=== PATIENT | female | born 1950 | race Caucasian/White ===

== ENCOUNTER 2019-05-04 18:42 | Outpatient (CLI) | payer MEDICARE | END 2019-05-04 18:43 | disposition short-term general hospital (02) | LOC: EMS 18:42 | PROVIDERS: ATTEND Surgery | DX: R06.02 Shortness of breath (principal); R07.9 Chest pain, unspecified | CPT/HCPCS: A0425; A0433 ==

== ENCOUNTER 2019-06-22 11:19 | Observation (INO) | payer MEDICARE ==
--- NOTE | 2019-06-22 11:33 | ED Physician Documentation ---
PD HPI DYSPNEA - Stated complaint Stated Complaint: SOA - History obtained from History obtained from: Patient - History of Present Illness Timing - onset: Last night (worsened last night), How many days ago (initially 4 days ago onset) Timing - onset during: Rest, Light activity Timing - duration: Days (4) Timing - details: Abrupt onset (Had noticed some orthopnea and some exertional dyspnea. However she was still taking walks outside and just thought she might be out of shape. She noticed considerable worsening dyspnea last night into today. She does have history of COPD as well as heart disease with stents placed but a year and a half ago but has been doing well. She does take a daily diuretic. She does not use any regular inhalers. She does not have oxygen at home.), Still present Inciting event(s): Exercise. No: Out of meds, URI, Immobilization/travel Worsened by: Laying flat Associated symptoms: Fever, Wheezing, Bilateral edema. No: Cough, Hemoptysis, Chest pain / discomfort, Palpitations Similar symptoms before: Diagnosis (had similar symptoms with WA recently (several months ago)) Recently seen: Admitted (for acute WA with [address] Angel in [facility]. Has done okay since that.) Review of Systems Constitutional: denies: Fever, Chills, Myalgias Nose: denies: Rhinorrhea / runny nose, Congestion Throat: denies: Sore throat Cardiac: reports: Pedal edema. denies: Chest pain / pressure, Calf pain Respiratory: reports: Dyspnea, Wheezing. denies: Cough GI: denies: Abdominal Pain, Nausea, Vomiting, Diarrhea, Bloody / black stool : denies: Dysuria Skin: denies: Rash PD PAST MEDICAL HISTORY - Past Medical History Cardiovascular: Congestive heart failure, [place] (with stents in 2018) Respiratory: COPD Neuro: None Endocrine/Autoimmune: None - Present Medications Home Medications: Ambulatory Orders Medication Instructions Recorded Confirmed Aspirin [Aspirin EC] 81 mg PO DAILY 06/22/19 06/22/19 Atorvastatin Calcium 40 mg PO QPM 06/22/19 06/22/19 Clopidogrel Bisulfate [Clopidogrel] 75 mg PO DAILY 06/22/19 06/22/19 Furosemide 20 mg PO DAILY 06/22/19 06/22/19 Metoprolol Succinate [Toprol Xl] 50 mg PO DAILY 06/22/19 06/22/19 Nitroglycerin 0.4 mg SL Q5M PRN 06/22/19 06/22/19 Spironolactone 25 mg PO DAILY 06/22/19 06/22/19 lisinopriL [Lisinopril] 10 mg PO DAILY 06/22/19 06/22/19 - Allergies Allergies/Adverse Reactions: Allergies Allergy/AdvReac Type Severity Reaction Status Date / Time No Known Drug Allergies Allergy Verified 06/22/19 14:39 PD ED PE NORMAL - Vitals Vital signs reviewed: Yes - General General: Alert and oriented X 3, Well developed/nourished, Other (tachypneic and low sats; somewhat hypertensive. Sitting upright. ) - HEENT HEENT: PERRL, Moist mucous membranes, Pharynx benign - Neck Neck: Supple, no meningeal sign, No adenopathy, No bruit, Other (JVD noted at 45 degrees) - Cardiac Cardiac: RRR, No murmur, No rub - Respiratory Respiratory: No: Clear bilaterally (some diffuse exp wheezing, and also fine crackles heard 1/[address] up both sides. ) - Abdomen Abdomen: Soft, Non tender - Derm Derm: Normal color, Warm and dry - Extremities Extremities: No tenderness to palpate, No calf tenderness / cord, Other (modest pedal edema both sides) - Neuro Neuro: Alert and oriented X 3, No motor deficit, Normal speech Eye Opening: Spontaneous Motor: Obeys Commands Verbal: Oriented GCS Score: 15 Results - Vitals Vitals: Vital Signs - 24 hr 06/22/19 06/22/19 06/22/19 11:25 11:45 12:10 Temperature 36.7 C Heart Rate 73 60 80 Respiratory 37 H 26 H 20 Rate Blood Pressure 177/85 H 179/82 H O2 Saturation 88 L 89 L 06/22/19 06/22/19 12:21 13:00 Temperature Heart Rate 56 L 53 L Respiratory 19 14 Rate Blood Pressure 114/93 H 105/55 L O2 Saturation 92 90 L Oxygen O2 Source Nasal cannula - EKG (time done) 11:32 Rate: Rate (enter#) (68) Rhythm: NSR, Other (baseline artifact) Blanco: Normal Intervals: Normal AL QRS: Normal Ischemia: Normal ST segments. No: ST elevation c/w ischemia, ST depression - Labs Labs: Laboratory Tests 06/22/19 06/22/19 06/22/19 11:42 11:42 11:42 WBC 11.6 H RBC 4.95 Hgb 14.0 Hct 43.6 MCV 88.1 MCH 28.3 MCHC 32.1 RDW 14.0 Plt Count 475 H MPV 10.6 Neut # (Auto) 8.6 H Lymph # (Auto) 2.0 Elmore # (Auto) 0.7 Eos # (Auto) 0.2 Baso # (Auto) 0.1 Absolute Nucleated RBC 0.00 Nucleated RBC % 0.0 Sodium 138 Potassium 3.6 Chloride 102 Carbon Dioxide 23 Anion Gap 13.0 BUN 10 Creatinine 0.9 Estimated GFR (MDRD) 62 L Glucose 141 H Calcium 8.9 Magnesium 1.7 Total Bilirubin 0.9 AST 25 ALT 22 Alkaline Phosphatase 89 Troponin I High Sens 24.8 H* B-Natriuretic Peptide Total Protein 7.8 Albumin 3.2 Globulin 4.6 H Albumin/Globulin Ratio 0.7 L Lipase 18 L 06/22/19 11:42 WBC RBC Hgb Hct MCV MCH MCHC RDW Plt Count MPV Neut # (Auto) Lymph # (Auto) Elmore # (Auto) Eos # (Auto) Baso # (Auto) Absolute Nucleated RBC Nucleated RBC % Sodium Potassium Chloride Carbon Dioxide Anion Gap BUN Creatinine Estimated GFR (MDRD) Glucose Calcium Magnesium Total Bilirubin AST ALT Alkaline Phosphatase Troponin I High Sens B-Natriuretic Peptide 3254 H Total Protein Albumin Globulin Albumin/Globulin Ratio Lipase - Rads (name of study) chest xray Radiology: Prelim report reviewed (Port a Cath noted. Pulmonary vascular congestion.), See rad report PD MEDICAL DECISION MAKING - ED course Complexity details: re-evaluated patient (Her breathing is much more relaxed and comfortable. However she is still only 91% on 3 L nasal cannula. She is able to talk in sentences. She is sitting up comfortably. She still has some fine crackles sounds. No wheezing at this point.), considered differential (consider COPD and /or CHF. Does not have URI symptoms per se. ), d/w patient Departure - Departure Disposition: ED Place in Observation Clinical Impression: COPD exacerbation Dyspnea Qualifiers: Dyspnea type: shortness of breath Qualified Code(s): R06.02 - Shortness of breath CHF (congestive heart failure) Qualifiers: Heart failure type: unspecified Heart failure chronicity: acute on chronic Qualified Code(s): I50.9 - Heart failure, unspecified Condition: Stable Record reviewed to determine appropriate education?: Yes Discharge Date/Time: 06/22/19 14:00
[2019-06-22] MEDS ORDERED: IPRATROPIUM/ALBUTEROL 3 ML NEB INH STA (11:45)
[2019-06-22 11:56] LABS: BASOPHILS # (AUTO) 0.1 10^3/uL (0.0-0.1); BASOPHILS % (AUTO) 0.8 %; EOSINOPHILS # (AUTO) 0.2 10^3/uL (0.0-0.7); EOSINOPHILS % (AUTO) 1.6 %; LYMPHOCYTES % (AUTO) 17.1 %; MEAN CORPUSCULAR HEMOGLOBIN 28.3 pg (27.0-31.0); MEAN CORPUSCULAR HGB CONC 32.1 g/dL (32.0-36.0); MEAN CORPUSCULAR VOLUME 88.1 fL (81.0-99.0); MEAN PLATELET VOLUME 10.6 fL (7.9-10.8); MONOCYTES # (AUTO) 0.7 10^3/uL (0.0-1.0); MONOCYTES % (AUTO) 5.9 %; NEUTROPHILS # (AUTO) 8.6 10^3/uL (1.5-6.6); NEUTROPHILS % (AUTO) 74.1 %; PLT - PLATELET COUNT 475 10^3/uL (130-450); RED BLOOD COUNT 4.95 10^6/uL (4.20-5.40); WHITE BLOOD COUNT 11.6 x10^3/uL (4.8-10.8)
--- NOTE | 2019-06-22 12:25 | XRAY Report ---
Reason: Chest Pain Procedure Date: 06/22/2019 Accession Number: [id number] / [id number] Procedure: XR - Chest 1 View X-Ray CPT Code: 86529 Final Report FULL RESULT: EXAM: CHEST RADIOGRAPHY EXAM DATE: 06/22/2019 12:06 PM. CLINICAL HISTORY: Chest Pain. COMPARISON: None. TECHNIQUE: 1 view. FINDINGS: Lungs/Pleura: Left basal infiltrate or atelectasis with small to moderate left pleural effusion. Pulmonary vascularity is increased with cephalization of vessels. Small right pleural effusion. Mediastinum: Within exam limitations, the cardiomediastinal contour is normal. Other: None. IMPRESSION: 1. Right-sided Port-A-Cath tip in the cavoatrial junction. 2. Pulmonary venous congestion RADIA
[2019-06-22 12:26] LABS: ALBUMIN 3.2 g/dL (3.2-5.5); ALBUMIN/GLOBULIN RATIO 0.7 (1.0-2.2); BILIRUBIN,TOTAL 0.9 mg/dL (0.2-1.0); CREATININE 0.9 mg/dL (0.4-1.0); MAGNESIUM 1.7 mg/dL (1.7-2.8); TOTAL PROTEIN 7.8 g/dL (6.7-8.2)
[2019-06-22 12:55] LABS: CALCIUM 8.9 mg/dL (8.5-10.3)
[2019-06-22] MEDS ORDERED: FUROSEMIDE 40 MG/4 ML VIAL IVP STA (12:55)
[2019-06-22] MEDS ORDERED: ZOLPIDEM 5 MG TABLET PO PRN (13:27)
[2019-06-22] MEDS ORDERED: ACETAMINOPHEN 325 MG TABLET PO PRN (13:27)
[2019-06-22] MEDS ORDERED: ONDANSETRON 4 MG/2 ML VIAL IVP PRN (13:27)
--- NOTE | 2019-06-22 13:37 | PHARMACY PROGRESS NOTE ---
- Best Possible Medication History Admit Date and Time: Patient still in ED Processed by: Pharmacy Medication History completed: Yes Patient Interview: Pt unable to participate Secondary Source(s): Physician records, Pharmacy records, Insurance records As the person ultimately responsible for medication therapy, providers are able to order a medication from an existing home medication list in [facility] via the "Reconcile Routine" prior to Confirmation of that medication by support clerk. Such practice is discouraged except when the physician, in their clinical judgment, deems that a medical need exists for a medication without regard to previous use.
--- NOTE | 2019-06-22 13:38 | HISTORY & PHYSICAL EXAMINATION ---
Chief Complaint - Chief Complaint Chief Complaint: SOB History of Present Illness - History of Present Illness HPI Comment/Other: This is a 69-yrs-old female with hx significant of COPD, CHF, [place] with s/p of stents placed but a year and a half ago, HTN, obesity, who present ER reports that she has had increase in SOB since Tuesday. She report she Has used inhaler but without relief. She report she is having difficulty talking through sentence after walking from bathroom and she needed to have tripod to catch breath. she report she has to stop four time when she came back the door. she report she did take a daily diuretic. She does not use any regular inhalers. She does not have oxygen at home. pt denies chest pain, fever, chill, abdominal pain, nausea, vomiting, diarrhea. Route lab test in ER reveals BNP over 3200, troponin 25, WBC 11.6. CXR reveals pulmonary venous congestion. pt is afebrile, has 88% sats on room air with tachypneic. pt is admitted in observation unit now for acute fluid overloaded and CHF exacerbation. we discussed her care goal. pt state she would like to have DNR/DNI for her code status. History - Past Medical History Cardiovascular: reports: Congestive heart failure, [place] Respiratory: reports: COPD - Family & Social History Family History: Mother: , Alzheimer's Disease, Father: , CAD Family History Comment/Other: pt report her father from heart attack, her two had CABG surgery, one brother from heart attack as well. her mother from dementia from this hospial on 2003. Social History Notes: pt report she is living at [facility] about one mile from hospital. she quit smoking about 2 months when she had heart attack. she had stent put by [facility]. she denies alcohol and drug issue. Meds/Allgy - Home Medications Home Medications: Ambulatory Orders Medication Instructions Recorded Confirmed Aspirin [Aspirin EC] 81 mg PO DAILY 06/22/19 06/22/19 Atorvastatin Calcium 40 mg PO QPM 06/22/19 06/22/19 Clopidogrel Bisulfate [Clopidogrel] 75 mg PO DAILY 06/22/19 06/22/19 Furosemide 20 mg PO DAILY 06/22/19 06/22/19 Metoprolol Succinate [Toprol Xl] 50 mg PO DAILY 06/22/19 06/22/19 Nitroglycerin 0.4 mg SL Q5M PRN 06/22/19 06/22/19 Spironolactone 25 mg PO DAILY 06/22/19 06/22/19 lisinopriL [Lisinopril] 10 mg PO DAILY 06/22/19 06/22/19 - Allergies Allergies/Adverse Reactions: Allergies Allergy/AdvReac Type Severity Reaction Status Date / Time No Known Drug Allergies Allergy Verified 06/22/19 14:39 Review of Systems - Constitutional Constitutional: denies: Fatigue, Fever, Chills, Malaise, Weakness, Poor appetite, Diaphoresis, Night sweats - Eyes Eyes: denies: Pain, Irritation, Amaurosis, Blurred vision, Spots in vision, Field loss, Vision loss, Dipolpia - Ears, Nose & Throat Ears, Nose & Throat: denies: Ear pain, Hearing loss, Hearing aids, Vertigo, Nasal pain, Nasal discharge, Nosebleeds, Nasal congestion, Sore throat - Cardiovascular Cariovascular: reports: Exertional dyspnea, Decr. exercise tolerance, Orthopnea. denies: Irregular heart rate, Palpitations, Chest pain, Edema, Lightheadedness, Syncope - Respiratory Respiratory: reports: Orthopnea, SOB with exertion. denies: Cough, Sputum p roduction, Wheezing, Snoring, Hemoptysis, SOB at rest, Apnea - Gastrointestinal Gastrointestinal: denies: Abdominal pain, Abdominal distention, Constipation, Diarrhea, Change in bowel habits, Rectal bleeding, Black stools, Bloody stools, Nausea, Vomiting, Bile emesis, Lex blood emesis, Coffee grounds emesis - Genitourinary Genitourinary: denies: Dysuria, Frequency, Urgency, Hematuria, Incontinence, Flank pain, Nocturia, Urethral discharge - Musculoskeletal Musculoskeletal: denies: Muscle pain, Back pain, Muscle aches, Stiffness, Limited range of motion, Muscle weakness, Gout, Joint pain - Integumentary Integumentary: denies: Rash, Pruritis, Lesions, Dryness, Lumps, Acne, Pigment changes, Nail changes - Neurological Neurological: denies: General weakness, Focal weakness, Headache, Dizziness, N umbness, Memory problems, Pre-existing deficit, Abnormal gait - Psychiatric Psychiatric: denies: Depression, Anxiety, Suicidal, Delusions, Hallucinations, Homicidal - Endocrine Endocrine: denies: Polyuria, Polydypsia, Polyphagia, Intolerance to cold - Hematologic/Lymphatic Hematologic/Lymphatic: denies: Anemia, Bruising, Petechiae, Blood clots, Lymphadenopathy, Bleeding tendencies Exam - Vital Signs Vital Signs: Vital Signs x48h Temp Pulse Resp BP Pulse Ox 06/22/19 13:00 53 L 14 105/55 L 90 L 06/22/19 12:21 56 L 19 114/93 H 92 06/22/19 12:10 80 20 06/22/19 11:45 60 26 H 179/82 H 89 L 06/22/19 11:25 36.7 C 73 37 H 177/85 H 88 L - Physical Exam General Appearance: positive: No acute distress, Alert. negative: Lethargic Eyes Bilateral: positive: Normal inspection, PERRL, EOMI, No lid inflammation ENT: positive: ENT inspection nml, Pharynx nml, No signs of dehydration. negative: Purulent nasal drainage Neck: positive: Nml inspection, Thyroid nml, No JVD, Trachea midline. negative: Thyromegaly, Lymphadenopathy (R), Lymphadenopathy (L), Stiff neck, Tracheal deviation Respiratory: positive: Chest non-tender, No respiratory distress, Rales. negative: Breath sounds nml, Wheezes, Rhonchi Cardiovascular: positive: Regular rate & rhythm, No murmur, No gallop. nega tive: Irregularly irregular, Extrasystoles, Tachycardia, Bradycardia, JVD present, Systolic murmur, Diastolic murmur Peripheral Pulses: positive: 2+ Abdomen: positive: Non-tender, No organomegaly, Nml bowel sounds, No distention. negative: Tenderness, Guarding, Rebound Back: positive: Nml inspection. negative: CVA tenderness (R), CVA tenderness (L) Skin: positive: Color nml, No rash, Warm, Dry. negative: Cyanosis, Diaphoresis, Pallor Extremities: positive: Non-tender, Full ROM, Nml appearance. negative: Calf tenderness, Marlyn's sign/cords Neurologic/Psychiatric: positive: Oriented x3, Motor nml, Sensation nml, Mood/affect nml. negative: Weakness, Sensory loss, Facial droop, Slurred/abnml speech, Depressed mood/affect Sepsis Event Note (H) - Evaluation Current Stage of Sepsis: Ruled out Conclusion/Plan - Problem List (1) Acute exacerbation of CHF (congestive heart failure) Conclusion/Plan: pt had BNP over 3000, orthopnea, SOB on exertion. CXR reveals pulmonary venous congestion, all indicate acute exacerbation of CHF order ECHO, will followup ER start on IV of Lasix, will continue blood pressure control with home meds first, then adjust as needed tele and vital monitor (2) Dyspnea Conclusion/Plan: it is likely caused by acute exacerbation of CHF. with Lasix now. pt also has hx of COPD. order breath treatment as needed supplement of O2 as needed Qualifiers: Dyspnea type: shortness of breath Qualified Code(s): R06.02 - Shortness of breath; R06.00 - Dyspnea, unspecified; R06.01 - Orthopnea (3) Elevated troponin Conclusion/Plan: Troponin is 25, slight elevated. pt denies chest pain. pt is taking Aspirin and Plavix at home. pt is s/p of stent about 2 months ago. order EKG, pt did not have EKG as far. serial troponin test. resume home Aspirin and Plavix tele and vital monitor (4) History of COPD Conclusion/Plan: pt has hx of COPD, and quit smoking about two months ago. breath treatment with albuterol and Duoneb PRN (5) HTN (hypertension) Conclusion/Plan: pt has elevated BP, will resume home BP meds Lisinopril and Spinonolactone, first, then adjust the meds as needed (6) Hx of coronary artery disease Conclusion/Plan: pt report she had a heart attack about two months ago then she had stent put in [facility] resume home Aspirin and Plavix, metoprolol, tele and vital monitor. - Lab Results Fish Bones: 06/22/19 11:42 06/22/19 11:42 Core Measures - Anticipated LOS I expect patient to be DC'd or transferred within 96 hours.: Yes - DVT/VTE - Prophylaxis VTE/DVT Device ordered at admit?: Yes VTE/DVT Prophylaxis med ordered at admit?: Yes
[2019-06-22] MEDS ORDERED: FUROSEMIDE 40 MG/4 ML VIAL IVP SCH ×2 (14:00→19:00)
[2019-06-22] MEDS ORDERED: NITROGLYCERIN SL 0.4 MG TABLET SL PRN (14:37)
[2019-06-22] MEDS ORDERED: ALBUTEROL NEB 2.5 MG/3 ML INH PRN (15:15)
[2019-06-22] MEDS ORDERED: IPRATROPIUM/ALBUTEROL 3 ML NEB INH PRN (15:15)
[2019-06-22] MEDS: lisinopriL 20 MG TABLET PO SCH (17:58)
[2019-06-22] MEDS: SPIRONOLACTONE 25 MG TABLET PO SCH (17:58)
[2019-06-22] MEDS ORDERED: FUROSEMIDE 20 MG/2 ML VIAL IVP SCH (18:00)
[2019-06-22] MEDS: SODIUM CHLORIDE FLUSH 0.9% 10 ML SYRINGE IVP SCH (18:04)
[2019-06-22] MEDS ORDERED: ATORVASTATIN 40 MG TABLET PO SCH (21:00)
[2019-06-23] MEDS: SODIUM CHLORIDE FLUSH 0.9% 10 ML SYRINGE IVP SCH ×3 (00:03→17:05)
[2019-06-23] MEDS: SODIUM CHLORIDE FLUSH 0.9% 10 ML SYRINGE IVP PRN ×2 (05:38→05:39)
[2019-06-23] MEDS ORDERED: FUROSEMIDE 40 MG/4 ML VIAL IVP SCH ×2 (06:00→12:39)
[2019-06-23 06:13] LABS: BASOPHILS # (AUTO) 0.1 10^3/uL (0.0-0.1); BASOPHILS % (AUTO) 0.7 %; EOSINOPHILS # (AUTO) 0.4 10^3/uL (0.0-0.7); EOSINOPHILS % (AUTO) 3.1 %; HGB - HEMOGLOBIN 13.6 g/dL (12.0-16.0); LYMPHOCYTES # (AUTO) 1.9 10^3/uL (1.5-3.5); LYMPHOCYTES % (AUTO) 16.1 %; MEAN CORPUSCULAR HGB CONC 31.8 g/dL (32.0-36.0); MEAN CORPUSCULAR VOLUME 88.2 fL (81.0-99.0); MEAN PLATELET VOLUME 10.3 fL (7.9-10.8); MONOCYTES # (AUTO) 0.8 10^3/uL (0.0-1.0); MONOCYTES % (AUTO) 6.4 %; NEUTROPHILS # (AUTO) 8.6 10^3/uL (1.5-6.6); NEUTROPHILS % (AUTO) 73.2 %; PLT - PLATELET COUNT 424 10^3/uL (130-450); RED BLOOD COUNT 4.85 10^6/uL (4.20-5.40); WHITE BLOOD COUNT 11.7 x10^3/uL (4.8-10.8)
[2019-06-23 06:22] LABS: CALCIUM 8.8 mg/dL (8.5-10.3); CREATININE 0.9 mg/dL (0.4-1.0); MAGNESIUM 1.8 mg/dL (1.7-2.8)
[2019-06-23] MEDS: SPIRONOLACTONE 25 MG TABLET PO SCH (08:09)
[2019-06-23] MEDS: lisinopriL 20 MG TABLET PO SCH (08:11)
[2019-06-23] MEDS ORDERED: FAMOTIDINE 20 MG TABLET PO SCH (09:00)
[2019-06-23] MEDS ORDERED: METOPROLOL SUCCINATE 50 MG TABLET PO SCH (09:00)
[2019-06-23] MEDS ORDERED: CLOPIDOGREL 75 MG TABLET PO SCH (09:00)
[2019-06-23] MEDS ORDERED: NYSTATIN CREAM 15 GM TUBE TOP SCH (09:00)
[2019-06-23] MEDS ORDERED: SPIRONOLACTONE 25 MG TABLET PO SCH (09:00)
[2019-06-23] MEDS ORDERED: NON FORMULARY MED (Lisinopril [Lisinopril] 10 MG) PO SCH (09:00)
[2019-06-23] MEDS ORDERED: ASPIRIN EC 81 MG TABLET PO SCH (09:00)
[2019-06-23] MEDS ORDERED: ENOXAPARIN 40 MG/0.4 ML SYRINGE SUBQ SCH (09:00)
--- NOTE | 2019-06-23 12:38 | Discharge Plan ---
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 An echocardiogram done of your heart shows an preserved ejection fraction, which means good pumping function. You had an improvement in your overall symptoms, with the exception of your oxygen requirement. An oxygen walking test is still pending to determine if you need home oxygen. You are otherwise medically stable to return home today. Please limit your fluid intake to no more than 2 liters per 24 hours, and weight yourself daily. Follow-Up Care: [facility] No Smoking: If you smoke, Please STOP! Call for help. Follow-up with: Hardik Palacios MD [Primary Care Provider] -
--- NOTE | 2019-06-23 13:46 | DISCHARGE SUMMARY ---
Discharge Summary Admit Date: 06/22/19 Discharge Date: 06/23/19 Discharging Provider: ODETTE Gillespie Primary Care Provider: Hardik Palacios Code Status: Do Not Attempt Resuscitation Condition at Discharge: Good Discharge Disposition: 01 Home, Self Care - DIAGNOSES Discharge Diagnoses with Status of Each Condition: Acute on chronic diastolic CHF (congestive heart failure)-Present on admission, improvement of symptoms, stable Acute and chronic respiratory failure with hypoxia-Present on admission, now requires home O2, stable Requires continuous at home supplemental oxygen-Now needing home O2, outside company to supply, stable 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 She was brought in via private car for progressive shortness of breath since Tuesday (4-days). The patient had attempted to use her rescue inhaler, without relief. She states that she has been having more difficulty with stairs and finds herself in a tripod position for several minutes following her activity. She reported that since her heart attack, she no longer smokes, and has been taking her heart medications as directed. She stated that she has a home oxygen saturation sensor, which has been reading about 83% after activity, and usually has been 88% when sitting still. She does not have oxygen at home. The patient denied chest pain, fevers, chills, abdominal pain, nausea, vomiting, diarrhea or sick contacts. Lab tests in ER showed an elevated BNP of 3200, troponin 25, WBC 11.6. A chest x-ray showed pulmonary venous congestion. The patient was afebrile, has 88% oxygen saturation, has tachypnea and can only speak in few word sentences. The patient has been admitted to the hospital for an observation stay for CHF exacerbation. The patient wished to be a DNR/DNI. - HOSPITAL COURSE Hospital Course: The patient was admitted to the hospital for an exacerbation of her heart failure and given IV treatment with lasix. An echocardiogram was obtained, sh owing a preserved EF. The patient continued to have improvement in her overall symptoms, with the exception of her oxygen requirement. An oxygen walking test was completed, see below. The patient is medically stable to return home today. The patient was instructed to limit her fluid intake to no more than 2 liters per 24 hours, and weight herself daily. Results of an oxygen walking desaturation study are: The patient was hypoxic at rest with a resting oxygen saturation of 87%, with ambulation on room air, oxygen saturation decreased to 85%. With ambulation (exertion), on 1L nasal cannula, oxygen saturation improved to 88%, and with 2L nasal cannula oxygen saturation improved to 92%. I am ordering home oxygen to be worn continuously at 2L per nasal cannula to treat her underlying chronic COPD with emphysema (code J43.9). - ALLERGIES Allergies/Adverse Reactions: Allergies Allergy/AdvReac Type Severity Reaction Status Date / Time No Known Drug Allergies Allergy Verified 06/22/19 14:39 - MEDICATIONS Home Medications: Ambulatory Orders Medication Instructions Recorded Confirmed Aspirin [Aspirin EC] 81 mg PO DAILY 06/22/19 06/22/19 Atorvastatin Calcium 40 mg PO QPM 06/22/19 06/22/19 Clopidogrel Bisulfate [Clopidogrel] 75 mg PO DAILY 06/22/19 06/22/19 Furosemide 20 mg PO DAILY 06/22/19 06/22/19 Metoprolol Succinate [Toprol Xl] 50 mg PO DAILY 06/22/19 06/22/19 Nitroglycerin 0.4 mg SL Q5M PRN 06/22/19 06/22/19 lisinopriL [Lisinopril] 10 mg PO DAILY 06/22/19 06/22/19 Spironolactone 25 mg PO BID #60 tablet 06/23/19 - PHYSICAL EXAM AT DISCHARGE General Appearance: positive: No acute distress, Alert Eyes Bilateral: positive: PERRL, No lid inflammation ENT: positive: Pharynx nml, No signs of dehydration Neck: positive: No JVD, Trachea midline Respiratory: positive: Chest non-tender, No respiratory distress, Other (diminshed, bilaterally) Cardiovascular: positive: Regular rate & rhythm, No gallop, Systolic murmur, Decreased pulse(s) Peripheral Pulses: positive: 1+ Abdomen: positive: Non-tender, Nml bowel sounds, Other (rounded, soft) Back: positive: Nml inspection Skin: positive: No rash, Warm, Dry, Cyanosis (fingertips at times), Other (bronze toned skin) Extremities: positive: Non-tender, Full ROM, Pedal edema (dependent BLEs) Neurologic/Psychiatric: positive: Oriented x3, CN's nml (2-12), Motor nml, Sensation nml, Mood/affect nml Reflexes: Bicep (R): 3+, Bicep (L): 3+ - LABS Result Diagrams: 06/23/19 06:05 06/23/19 06:05 - SEPSIS Current Stage of Sepsis: Ruled out - FOLLOW UP Follow Up: Continue all of your heart medications at home, with the addition of a bit more diuretic medication Follow up with your PCP within one week Weigh yourself daily See your money counter as scheduled - TIME SPENT Time Spent in Discharge (Minutes): 55
[2019-06-23 17:55] VITALS: BP 150/71
== END 2019-06-23 17:39 | disposition home or self-care (01) ==
LOC: ED 11:19 → MS2 13:27
PROVIDERS: ADMIT Nurse Practitioner Gerontology; ATTEND Nurse Practitioner
DX: I11.0 Hypertensive heart disease with heart failure (principal); I50.33 Acute on chronic diastolic (congestive) heart failure; J96.01 Acute respiratory failure with hypoxia; Z99.81 Dependence on supplemental oxygen; I25.10 Atherosclerotic heart disease of native coronary artery without angina pectoris; Z95.5 Presence of coronary angioplasty implant and graft; I25.2 Old myocardial infarction; J43.9 Emphysema, unspecified; R79.89 Other specified abnormal findings of blood chemistry; Z87.891 Personal history of nicotine dependence; Z79.82 Long term (current) use of aspirin; Z79.02 Long term (current) use of antithrombotics/antiplatelets; Z66 Do not resuscitate
CPT/HCPCS: 36415; 71045; 80048; 80053; 83690; 83735; 83880; 84484; 85025; 93005; 93306; 94640; 94761; 96372; 96374; 96376; 99284; 99285; A9270; G0378; J1650

== ENCOUNTER 2019-09-05 09:42 | Outpatient (CLI) | payer MEDICARE | END 2019-09-05 09:43 | disposition critical access hospital (66) | LOC: EMS 09:42 | PROVIDERS: ATTEND Surgery | DX: R06.00 Dyspnea, unspecified (principal) ==

== ENCOUNTER 2019-09-05 09:48 | Emergency (ER) | payer MEDICARE ==
[2019-09-05] MEDS ORDERED: IPRATROPIUM/ALBUTEROL 3 ML NEB INH STA (09:57)
--- NOTE | 2019-09-05 10:03 | ED Physician Documentation ---
PD HPI DYSPNEA - Stated complaint Stated Complaint: CHF - History obtained from History obtained from: Patient, EMS - History of Present Illness Timing - onset: Today Timing - onset during: Rest Timing - duration: Hours Timing - details: Abrupt onset, Still present Inciting event(s): URI Improved by: O2 Worsened by: Exertion, Laying flat, Coughing Similar symptoms before: Diagnosis (CHF) - Additional information Additional information: 69-year-old female not feeling well for the past 3 days had increasing shortness of breath and she took some additional spironolactone as this is what she ended up doing the last time this happened to her. This did not make any difference she continued to have increasing dyspnea she developed some chest pain she took some nitroglycerin this morning she was even more short of breath and called the ambulance. When the ambulance arrived she was so short of breath she was not able to get up off the couch to get to the door. She is brought to the hospital with a nonrebreather with oxygen saturations in the mid 90s. Review of Systems Constitutional: denies: Fever Eyes: denies: Decreased vision, Photophobia Ears: denies: Ear pain Nose: denies: Rhinorrhea / runny nose, Congestion Throat: denies: Sore throat Cardiac: reports: Chest pain / pressure. denies: Palpitations, Pedal edema, Calf pain Respiratory: reports: Dyspnea. denies: Cough GI: denies: Nausea, Vomiting : denies: Dysuria PD PAST MEDICAL HISTORY - Past Medical History Cardiovascular: Congestive heart failure, [place] (with stents in 2018) Respiratory: COPD Neuro: None Endocrine/Autoimmune: None GI: None : None Psych: Depression, Anxiety Musculoskeletal: None Derm: None - Past Surgical History General: Cholecystectomy, Appendectomy Cardiovascular: Coronary stent - Present Medications Home Medications: Ambulatory Orders Medication Instructions Recorded Confirmed Aspirin [Aspirin EC] 81 mg PO DAILY 06/22/19 06/22/19 Atorvastatin Calcium 40 mg PO QPM 06/22/19 06/22/19 Clopidogrel Bisulfate [Clopidogrel] 75 mg PO DAILY 06/22/19 06/22/19 Furosemide 20 mg PO DAILY 06/22/19 06/22/19 Metoprolol Succinate [Toprol Xl] 50 mg PO DAILY 06/22/19 06/22/19 Nitroglycerin 0.4 mg SL Q5M PRN 06/22/19 06/22/19 lisinopriL [Lisinopril] 10 mg PO DAILY 06/22/19 06/22/19 Spironolactone 25 mg PO BID #60 tablet 06/23/19 - Allergies Allergies/Adverse Reactions: Allergies Allergy/AdvReac Type Severity Reaction Status Date / Time No Known Drug Allergies Allergy Verified 09/05/19 10:02 - Social History Does the pt smoke?: No Smoking Status: Former smoker PD ED PE NORMAL - Vitals Vital signs reviewed: Yes (Tachycardic tachypneic and hypertensive.) - General General: Well developed/nourished, Other (69-year-old female gasping for breath with her eyes closed mumbling and able to answer questions with 1-2 words.) - HEENT HEENT: Atraumatic, PERRL, EOMI - Neck Neck: Supple, no meningeal sign, No bony TTP - Cardiac Cardiac: Other (Tachycardic rate with 2 out of 6 holosystolic murmur at left sternal border) - Respiratory Respiratory: Other (Marked tachypnea with reduced breath sounds coarse in the bases.) - Abdomen Abdomen: Soft, Non tender - Back Back: No CVA TTP, No spinal TTP - Derm Derm: Normal color, Warm and dry, No rash - Extremities Extremities: No deformity, No edema, No calf tenderness / cord - Neuro Neuro: mult au matic operator 2-12 intact, No motor deficit, No sensory deficit, Normal speech Eye Opening: To Voice Motor: Obeys Commands Verbal: Oriented GCS Score: 14 - Psych Psych: Normal mood, Normal affect Results - Vitals Vitals: Vital Signs - 24 hr 09/05/19 09/05/19 09/05/19 10:00 10:02 10:06 Temperature 36.8 C Heart Rate 112 H 118 H 110 H Respiratory 35 H 28 H Rate Blood Pressure 181/118 H 179/135 H O2 Saturation 95 100 09/05/19 09/05/19 09/05/19 10:21 10:30 10:31 Temperature Heart Rate 98 96 92 Respiratory 25 H 25 H 25 H Rate Blood Pressure 135/69 H 125/70 O2 Saturation 95 96 09/05/19 09/05/19 09/05/19 10:36 10:45 10:51 Temperature Heart Rate 91 92 92 Respiratory 26 H 24 25 H Rate Blood Pressure 101/89 H 114/67 99/67 O2 Saturation 98 94 96 09/05/19 09/05/19 09/05/19 11:13 11:56 12:00 Temperature Heart Rate 111 H 84 92 Respiratory 23 21 25 H Rate Blood Pressure 149/72 H 116/60 129/68 O2 Saturation 92 92 94 09/05/19 09/05/19 09/05/19 12:15 13:22 13:45 Temperature Heart Rate 85 80 74 Respiratory 21 17 22 Rate Blood Pressure 138/70 H 110/60 119/45 L O2 Saturation 93 96 97 09/05/19 14:28 Temperature Heart Rate 81 Respiratory 24 Rate Blood Pressure 126/75 O2 Saturation 96 Oxygen O2 Source Nasal cannula - EKG (time done) 0951 Rate: Rate (enter#) (115) Rhythm: Sinus tachycardia Intervals: Wide QRS Ischemia: Q waves Compare to prior EKG: Changed from prior EKG (SPT 06-22-2019 There has been evolution of Q waves in V1-2 and widening of the QRS) Computer interpretation: Agree with computer - Labs Labs: Laboratory Tests 09/05/19 09/05/19 09/05/19 10:12 10:12 10:12 WBC 14.3 H RBC 5.02 Hgb 14.2 Hct 47.9 H MCV 95.4 MCH 28.3 MCHC 29.6 L RDW 14.5 Plt Count 487 H MPV 10.5 Neut # (Auto) 9.7 H Lymph # (Auto) 3.6 H [place] # (Auto) 0.4 Eos # (Auto) 0.3 Baso # (Auto) 0.1 Absolute Nucleated RBC 0.00 Nucleated RBC % 0.0 Sodium 139 Potassium 4.5 Chloride 99 L Carbon Dioxide 22 Anion Gap 18.0 H BUN 14 Creatinine 1.1 H Estimated GFR (MDRD) 49 L Glucose 295 H Lactic Acid Calcium 8.7 Total Bilirubin 0.8 AST 78 H ALT 65 H Alkaline Phosphatase 125 H Troponin I High Sens B-Natriuretic Peptide 1608 H Total Protein 7.6 Albumin 3.4 Globulin 4.2 Albumin/Globulin Ratio 0.8 L Lipase 22 Urine Color Urine Clarity Urine pH Ur Specific [place] Urine Protein Urine Glucose (UA) Urine Ketones Urine Occult Blood Urine Nitrite Urine Bilirubin Urine Urobilinogen Ur Leukocyte Esterase Urine RBC Urine WBC Ur Squamous Epith Cells Urine Bacteria Urine Casts Ur Microscopic Review Urine Culture Comments 05/09/05/19 09/05/19 10:12 10:12 11:30 WBC RBC Hgb Hct MCV MCH MCHC RDW Plt Count MPV Neut # (Auto) Lymph # (Auto) [place] # (Auto) Eos # (Auto) Baso # (Auto) Absolute Nucleated RBC Nucleated RBC % Sodium Potassium Chloride Carbon Dioxide Anion Gap BUN Creatinine Estimated GFR (MDRD) Glucose Lactic Acid 8.6 H* Calcium Total Bilirubin AST ALT Alkaline Phosphatase Troponin I High Sens 34.0 H* B-Natriuretic Peptide Total Protein Albumin Globulin Albumin/Globulin Ratio Lipase Urine Color YELLOW Urine Clarity HAZY Urine pH 6.0 Ur Specific [place] 1.020 Urine Protein 30 H Urine Glucose (UA) NEGATIVE Urine Ketones NEGATIVE Urine Occult Blood TRACE-INTA Urine Nitrite NEGATIVE Urine Bilirubin NEGATIVE Urine Urobilinogen 0.2 (NORMAL) Ur Leukocyte Esterase NEGATIVE Urine RBC 6-10 H Urine WBC 4-5 Ur Squamous Epith Cells FEW Squamous Urine Bacteria Few Urine Casts 0-2 Granular Casts Ur Microscopic Review INDICATED Urine Culture Comments NOT INDICATED 09/05/19 11:58 WBC RBC Hgb Hct MCV MCH MCHC RDW Plt Count MPV Neut # (Auto) Lymph # (Auto) [place] # (Auto) Eos # (Auto) Baso # (Auto) Absolute Nucleated RBC Nucleated RBC % Sodium Potassium Chloride Carbon Dioxide Anion Gap BUN Creatinine Estimated GFR (MDRD) Glucose Lactic Acid Calcium Total Bilirubin AST ALT Alkaline Phosphatase Troponin I High Sens 180.4 H* B-Natriuretic Peptide Total Protein Albumin Globulin Albumin/Globulin Ratio Lipase Urine Color Urine Clarity Urine pH Ur Specific [place] Urine Protein Urine Glucose (UA) Urine Ketones Urine Occult Blood Urine Nitrite Urine Bilirubin Urine Urobilinogen Ur Leukocyte Esterase Urine RBC Urine WBC Ur Squamous Epith Cells Urine Bacteria Urine Casts Ur Microscopic Review Urine Culture Comments - Rads (name of study) chest 1-view Radiology: Prelim report reviewed (Impression: Worsening mild CHF/fluid overload.), EMP read indepedently, See rad report Procedures - IVC sono (time) 1007 Bedside IVC sono: IVC measures (cm) (1.59), [place] PD MEDICAL DECISION MAKING - ED course Complexity details: reviewed old records, reviewed results, re-evaluated patient, considered differential, d/w patient, d/w hr business partner consultant (Bree recommends transfer for further treatment and evaluation ) ED course: 69-year-old female with a history of an STEMI and CHF has developed acute dyspnea arrives to the emergency department with the appearance of acute congestive heart failure she is administered intravenous Lasix and she is placed on the BiPAP on arrival to the emergency department she requires a BiPAP for approximately 2 hours improves dramatically diuresis and feels much improved. Her troponin elevates above the delta and her member of the legislative assembly is consulted and the case recommends transfer further for further evaluation and treatment. Dr. Aparicio the hospitalist at [facility] is consulted in the case and will accept the patient for treatment. Departure - Departure Disposition: 02 Transfer Acute Care Hosp Clinical Impression: Acute on chronic diastolic (congestive) heart failure, NSTEMI (non-ST elevated myocardial infarction) Condition: Stable
--- NOTE | 2019-09-05 10:20 | XRAY Report ---
Reason: chest pain Procedure Date: 09/05/2019 Accession Number: [id number] / [id number] Procedure: XR - Chest 1 View X-Ray CPT Code: 38515 Final Report FULL RESULT: EXAM: CHEST RADIOGRAPHY EXAM DATE: 09/05/2019 10:09 AM. CLINICAL HISTORY: Chest pain. COMPARISON: CHEST 1 VIEW 06/22/2019 11:49 AM. TECHNIQUE: 1 view. FINDINGS: Lungs/Pleura: Moderate pulmonary vascular congestion and edema is seen, slightly worse compared with prior study. Minimal pleural effusions are seen. No pneumothorax. Mediastinum: Cardiac silhouette is borderline enlarged. Heart and mediastinal contours are notable for aortic calcification. Other: None. IMPRESSION: Worsening mild CHF/fluid overload. RADIA
[2019-09-05 10:21] LABS: BASOPHILS # (AUTO) 0.1 10^3/uL (0.0-0.1); BASOPHILS % (AUTO) 0.7 %; EOSINOPHILS # (AUTO) 0.3 10^3/uL (0.0-0.7); EOSINOPHILS % (AUTO) 2.2 %; HGB - HEMOGLOBIN 14.2 g/dL (12.0-16.0); LYMPHOCYTES # (AUTO) 3.6 10^3/uL (1.5-3.5); LYMPHOCYTES % (AUTO) 24.9 %; MEAN CORPUSCULAR HEMOGLOBIN 28.3 pg (27.0-31.0); MEAN CORPUSCULAR HGB CONC 29.6 g/dL (32.0-36.0); MEAN CORPUSCULAR VOLUME 95.4 fL (81.0-99.0); MEAN PLATELET VOLUME 10.5 fL (7.9-10.8); MONOCYTES # (AUTO) 0.4 10^3/uL (0.0-1.0); MONOCYTES % (AUTO) 3.1 %; NEUTROPHILS # (AUTO) 9.7 10^3/uL (1.5-6.6); NEUTROPHILS % (AUTO) 67.4 %; PLT - PLATELET COUNT 487 10^3/uL (130-450); RED BLOOD COUNT 5.02 10^6/uL (4.20-5.40); RED CELL DISTRIBUTION WIDTH 14.5 % (12.0-15.0); WHITE BLOOD COUNT 14.3 x10^3/uL (4.8-10.8)
[2019-09-05] MEDS ORDERED: FUROSEMIDE 40 MG/4 ML VIAL IVP STA (10:23)
[2019-09-05 10:33] LABS: ALBUMIN 3.4 g/dL (3.2-5.5); ALBUMIN/GLOBULIN RATIO 0.8 (1.0-2.2); BILIRUBIN,TOTAL 0.8 mg/dL (0.2-1.0); CALCIUM 8.7 mg/dL (8.5-10.3); CREATININE 1.1 mg/dL (0.4-1.0); TOTAL PROTEIN 7.6 g/dL (6.7-8.2)
[2019-09-05 11:35] LABS: BILIRUBIN,URINE NEGATIVE (NEGATIVE); CLARITY,URINE HAZY (CLEAR); GLUCOSE, URINE (UA) NEGATIVE (NEGATIVE); KETONES,URINE (UA) NEGATIVE (NEGATIVE); LEUKOCYTE ESTERASE, URINE NEGATIVE (NEGATIVE); NITRITE,URINE NEGATIVE (NEGATIVE); OCCULT BLOOD,URINE TRACE-INTA (NEGATIVE); PROTEIN,URINE 30 mg/dL (NEGATIVE); UROBILINOGEN,URINE 0.2 (NORMAL) E.U./dL (NORMAL)
[2019-09-05 11:42] LABS: BACTERIA,URINE Few /HPF (None Seen); CASTS, URINE 0-2 Granular Casts /LPF; SQUAMOUS EPITHELIAL CELL,UR FEW Squamous (<= Few)
[2019-09-05 16:19] VITALS: BP 107/68
== END 2019-09-05 16:19 | disposition short-term general hospital (02) ==
LOC: EDUNIT# → ED 09:48
DX: I50.33 Acute on chronic diastolic (congestive) heart failure (principal); I21.4 Non-ST elevation (NSTEMI) myocardial infarction; R00.0 Tachycardia, unspecified; Z20.828 Contact with and (suspected) exposure to other viral communicable diseases; Z95.5 Presence of coronary angioplasty implant and graft; J44.9 Chronic obstructive pulmonary disease, unspecified; Z87.891 Personal history of nicotine dependence; Z79.82 Long term (current) use of aspirin
CPT/HCPCS: 36415; 71045; 80053; 81001; 83605; 83690; 83880; 84484; 85025; 87040; 93005; 94640; 94660; 96374; 99284; 99285; U0004; 81003; 81599; 87086

== ENCOUNTER 2019-09-05 16:21 | Outpatient (CLI) | payer MEDICARE | END 2019-09-05 16:22 | disposition short-term general hospital (02) | LOC: EMS 16:21 | PROVIDERS: ATTEND Surgery | DX: I21.4 Non-ST elevation (NSTEMI) myocardial infarction (principal); I50.9 Heart failure, unspecified; R06.00 Dyspnea, unspecified | CPT/HCPCS: A0425; A0426; A0427 ==

== ENCOUNTER 2019-10-24 19:22 | Emergency (ER) | payer MEDICARE ==
[2019-10-24 19:52] LABS: BASOPHILS # (AUTO) 0.1 10^3/uL (0.0-0.1); BASOPHILS % (AUTO) 0.5 %; EOSINOPHILS # (AUTO) 0.4 10^3/uL (0.0-0.7); EOSINOPHILS % (AUTO) 2.6 %; HGB - HEMOGLOBIN 13.3 g/dL (12.0-16.0); LYMPHOCYTES # (AUTO) 2.2 10^3/uL (1.5-3.5); LYMPHOCYTES % (AUTO) 14.8 %; MEAN CORPUSCULAR HEMOGLOBIN 28.2 pg (27.0-31.0); MEAN CORPUSCULAR VOLUME 88.3 fL (81.0-99.0); MEAN PLATELET VOLUME 10.7 fL (7.9-10.8); MONOCYTES # (AUTO) 0.8 10^3/uL (0.0-1.0); MONOCYTES % (AUTO) 5.3 %; NEUTROPHILS # (AUTO) 11.2 10^3/uL (1.5-6.6); NEUTROPHILS % (AUTO) 76.3 %; PLT - PLATELET COUNT 391 10^3/uL (130-450); RED BLOOD COUNT 4.71 10^6/uL (4.20-5.40); RED CELL DISTRIBUTION WIDTH 13.7 % (12.0-15.0); WHITE BLOOD COUNT 14.7 x10^3/uL (4.8-10.8)
[2019-10-24] MEDS ORDERED: ALBUTEROL NEB 2.5 MG/3 ML INH STA (19:54)
--- NOTE | 2019-10-24 19:54 | ED Physician Documentation ---
History of Present Illness - Stated complaint Stated Complaint: SOA - Chief complaint Chief Complaint: Resp - History obtained from History obtained from: Patient, Family - History of Present Illness Timing: Prior to arrival, How many days ago (3) - Additonal information Additional information: 69-year-old female presents the emergency department with chief complaint of feeling short of air that is been getting progressively worse for the last 3 days. She reports that she feels dyspneic with simple exertion even going to the. She denies that she has been having any chest pain or chest pressure. No leg swelling. She does have a history of previous OH as well as COPD. She is oxygen dependent typically on 2 L nasal cannula at home.She did trial her al buterol at home yesterday but did not feel that it improved her dyspnea. she denies cough, fevers. no vomiting. + diarrhea (frequent occurance after GB removal. No leg swelling. no abdominal pain Review of Systems Constitutional: denies: Fever, Chills Cardiac: denies: Chest pain / pressure, Palpitations Respiratory: reports: Dyspnea, Wheezing. denies: Cough, Hemoptysis GI: reports: Diarrhea. denies: Abdominal Pain, Abdominal Swelling, Nausea, Vomiting, Constipation, Hematemesis, Bloody / black stool : denies: Dysuria, Frequency Skin: denies: Rash, Lesions Musculoskeletal: denies: Neck pain, Back pain Neurologic: denies: Generalized weakness, Syncope, Seizure, Confused PD PAST MEDICAL HISTORY - Past Medical History Cardiovascular: Congestive heart failure, [place] (with stents in 2018) Respiratory: COPD Neuro: None Endocrine/Autoimmune: None GI: None : None Psych: Depression, Anxiety Musculoskeletal: None Derm: None - Past Surgical History General: Cholecystectomy, Appendectomy Cardiovascular: Coronary stent - Present Medications Home Medications: Ambulatory Orders Medication Instructions Recorded Confirmed Aspirin [Aspirin EC] 81 mg PO DAILY 06/22/19 06/22/19 Atorvastatin Calcium 40 mg PO QPM 06/22/19 06/22/19 Clopidogrel Bisulfate [Clopidogrel] 75 mg PO DAILY 06/22/19 06/22/19 Furosemide 20 mg PO DAILY 06/22/19 06/22/19 Metoprolol Succinate [Toprol Xl] 50 mg PO DAILY 06/22/19 06/22/19 Nitroglycerin 0.4 mg SL Q5M PRN 06/22/19 06/22/19 lisinopriL [Lisinopril] 10 mg PO DAILY 06/22/19 06/22/19 Spironolactone 25 mg PO BID #60 tablet 06/23/19 Doxycycline Hyclate 100 mg PO BID #20 capsule 10/24/19 predniSONE [Prednisone] 40 mg PO DAILY #10 tablet 10/24/19 - Allergies Allergies/Adverse Reactions: Allergies Allergy/AdvReac Type Severity Reaction Status Date / Time No Known Drug Allergies Allergy Verified 10/24/19 19:27 - Social History Does the pt smoke?: No Smoking Status: Former smoker PD ED PE EXPANDED - General General: Alert, In distress (dyapnua) - Cardiac Cardiac: Regular Rate, Radial strong equal, Femoral strong equal, Cap refill < 2 sec - Respiratory Respiratory: Distress, Labored, Wheezing - Abdomen Abdomen: Normal Bowel sounds. No: Tender to palpation - Derm Derm: Normal color, Warm and dry - Neuro Neuro: Alert and Oriented X 3, CNII-XII intact - GCS Eye Opening: Spontaneous Motor: Obeys Commands Verbal: Oriented Total: 15 Results - Vitals Vitals: Vital Signs - 24 hr 10/24/19 10/24/19 19:25 20:21 Temperature 37.0 C Heart Rate 66 55 L Respiratory 24 22 Rate Blood Pressure 130/112 H O2 Saturation 96 Oxygen O2 Source Nasal cannula Oxygen Flow Rate 2 - EKG (time done) 1943 Rate: Rate (enter#) (65) Rhythm: NSR [place]: Normal Intervals: Normal [place] QRS: Normal Ischemia: Normal ST segments Other comments: Other comments Compare to prior EKG: Unchanged from prior EKG (prior inferior and anterior infarcts) - Labs Labs: Laboratory Tests 10/24/19 10/24/19 10/24/19 19:44 19:44 19:44 WBC 14.7 H RBC 4.71 Hgb 13.3 Hct 41.6 MCV 88.3 MCH 28.2 MCHC 32.0 RDW 13.7 Plt Count 391 MPV 10.7 Neut # (Auto) 11.2 H Lymph # (Auto) 2.2 [place] # (Auto) 0.8 Eos # (Auto) 0.4 Baso # (Auto) 0.1 Absolute Nucleated RBC 0.00 Nucleated RBC % 0.0 Sodium 137 Potassium 4.4 Chloride 101 Carbon Dioxide 26 Anion Gap 10.0 BUN 18 Creatinine 0.8 Estimated GFR (MDRD) 71 L Glucose 114 H Calcium 8.9 Total Bilirubin 1.0 AST 16 ALT 19 Alkaline Phosphatase 81 Troponin I High Sens B-Natriuretic Peptide 1570 H Total Protein 7.9 Albumin 4.0 Globulin 3.9 Albumin/Globulin Ratio 1.0 Lipase 24 TSH 10/24/19 10/24/19 19:44 19:44 WBC RBC Hgb Hct MCV MCH MCHC RDW Plt Count MPV Neut # (Auto) Lymph # (Auto) [place] # (Auto) Eos # (Auto) Baso # (Auto) Absolute Nucleated RBC Nucleated RBC % Sodium Potassium Chloride Carbon Dioxide Anion Gap BUN Creatinine Estimated GFR (MDRD) Glucose Calcium Total Bilirubin AST ALT Alkaline Phosphatase Troponin I High Sens 16.1 H* B-Natriuretic Peptide Total Protein Albumin Globulin Albumin/Globulin Ratio Lipase TSH 2.72 - Rads (name of study) cxr Radiology: Final report received (No acute cardiopulmonary pathology) PD MEDICAL DECISION MAKING - ED course Complexity details: reviewed old records, reviewed results, re-evaluated patient, considered differential, d/w patient ED course: 69-year-old female presents to the emergency department with chief complaint of 3 days worsening dyspnea. She does have a history of COPD and is on 2 L baseline home O2. - ddx includes CHF, acs, COPD, pna - Initially patient presented with some dyspnea though no hypoxia. She sounded labored and wheezy. She was given an albuterol nebulizer followed by a DuoNeb. Following these nebulizer she had marked improvement in her pulmonary excursion. Her wheeze had nearly fully abated. Though she denies any cough or fever I do suspect that this is a COPD exacerbation. She will be given 60 mg of prednisone in the clinic tonight and discharged with a 5-day prednisone burst and a prescription for doxycycline. She will also be advised to use her albuterol at home with a spacer. - Patient's EKG is nonischemic. Her troponin high-sensitivity is noted to be slightly elevated at 16. However I do not feel that this is consistent with acute OH considering the previous troponin elevation she has had in the past. In addition she denies that she has any chest pain - Patient's BNP is also noted to be elevated in the 1500 range however again this is less than it has historically been. In addition she has no crackles on exam, she is not hypoxic and has no extremity swelling. I will advise that she take an extra dose or 2 of Lasix at home and follow-up very closely in a telephone visit with her primary care provider - Patient is to return to the emergency department if she has any worsening dyspnea, fevers, chest pain or if she simply feels that her symptoms are not improving Departure - Departure Disposition: Home, Self Care Clinical Impression: COPD exacerbation Dyspnea Qualifiers: Dyspnea type: dyspnea on exertion Qualified Code(s): R06.00 - Dyspnea, unspecified Condition: Stable Record reviewed to determine appropriate education?: Yes Instructions: COPD Dc Follow-Up: Hardik Palacios MD [Primary Care Provider] - Prescriptions: Doxycycline Hyclate 100 mg PO BID #20 capsule predniSONE [Prednisone] 40 mg PO DAILY #10 tablet Comments: [place] I think that you are having a COPD exacerbation today. We have given you your first dose of steroids here in the emergency department. Please fill the prescription for the steroids and begin taking as directed at home tomorrow. I also want you to fill the prescription for the antibiotics and take as directed Your EKG looks okay to me today I do not think you are having a heart attack. Your BNP is mildly elevated though less than it has been in the past. I think taking an extra dose or 2 of Lasix will be helpful however. Please discuss this ED visit with your primary care doctor. If at any point you feel that your breathing is worse, you have fevers, develop chest pain then please immediately return to the emergency department
[2019-10-24 20:06] LABS: CALCIUM 8.9 mg/dL (8.5-10.3); CREATININE 0.8 mg/dL (0.4-1.0); TOTAL PROTEIN 7.9 g/dL (6.7-8.2)
--- NOTE | 2019-10-24 20:25 | XRAY Report ---
PROCEDURE: Chest 1 View X-Ray INDICATIONS: chest pain TECHNIQUE: One view of the chest was acquired. COMPARISON: 09/05/2019 FINDINGS: Surgical changes and devices: None. Lungs and pleura: No pleural effusions or pneumothorax. Lungs are clear. Mediastinum: Mediastinal contours appear normal. Heart size is enlarged. Bones and chest wall: No suspicious bony lesions. Overlying soft tissues appear unremarkable. IMPRESSION: No acute cardiopulmonary pathology. Reviewed by: Erick Barraza MD on 10/24/2019 8:24 PM PDT Approved by: Erick Barraza MD on 10/24/2019 8:24 PM PDT Station ID: [id number]
[2019-10-24] MEDS ORDERED: predniSONE 20 MG TABLET PO STA (20:40)
[2019-10-24] MEDS ORDERED: IPRATROPIUM/ALBUTEROL 3 ML NEB INH STA (20:46)
[2019-10-24] MEDS ORDERED: IPRATROPIUM/ALBUTEROL 3 ML NEB INH SCH (21:00)
[2019-10-24 21:18] VITALS: BP 133/89
== END 2019-10-24 21:20 | disposition home or self-care (01) ==
LOC: ED 19:22
DX: J44.1 Chronic obstructive pulmonary disease with (acute) exacerbation (principal); Z99.81 Dependence on supplemental oxygen; Z20.828 Contact with and (suspected) exposure to other viral communicable diseases; R79.89 Other specified abnormal findings of blood chemistry; I25.2 Old myocardial infarction; Z95.5 Presence of coronary angioplasty implant and graft; Z79.82 Long term (current) use of aspirin; Z87.891 Personal history of nicotine dependence
CPT/HCPCS: 36415; 71045; 80053; 83690; 83880; 84443; 84484; 85025; 93005; 94640; 99284; 99285; J7512; U0004

== ENCOUNTER 2019-11-30 23:52 | Outpatient (CLI) | payer MEDICARE | END 2019-11-30 23:53 | disposition critical access hospital (66) | LOC: EMS 23:52 | PROVIDERS: ATTEND Surgery | DX: R06.02 Shortness of breath (principal); R07.9 Chest pain, unspecified | CPT/HCPCS: A0425; A0427 ==

== ENCOUNTER 2019-11-30 23:57 | Inpatient (IN) | payer MEDICARE ==
--- NOTE | 2019-12-01 00:03 | ED Physician Documentation ---
PD HPI DYSPNEA - Stated complaint Stated Complaint: RESP DISTRESS - Chief complaint Chief Complaint: Resp - History obtained from History obtained from: Patient, EMS - History of Present Illness Timing - onset: Other (gradually worsening over past 2-3 days but becoming severe this evening and tonight) Timing - duration: Days Timing - details: Gradual onset, Constant, Waxing and waning Pain level max: 0 Pain level now: 0 Associated symptoms: No: Fever, Cough, Wheezing, Chest pain / discomfort, Bilateral edema, Unilateral edema Similar symptoms before: Diagnosis (COPD, CHF) Recently seen: Emergency Dept (T+R last month for similar c/o; evalauted 2 months ago in this ED and transferred to another facility for NSTEMI) - Additional information Additional information: BIBA for severe dyspnea. HPI/ROS limited due to severe dyspnea on arrival. Patient has been having gradually worsening dyspnea x 2-3 days but became severe over past several hours. EMS established IV immediately before ED arrival, placed 1" NTP on scene. They noted respiratory rate in upper 30s, pulse ox 91% room air, improved to 96% with NRB, pulse 110 and BP 145/102. Review of Systems Unable to obtain: Other (limited due to severe dyspnea, only able to speak in one or two word sentences; answers some questions with head nod/shake due to severity of dyspnea) Constitutional: denies: Fever Cardiac: denies: Chest pain / pressure Respiratory: reports: Dyspnea. denies: Cough, Hemoptysis, Wheezing GI: denies: Abdominal Pain PD PAST MEDICAL HISTORY - Past Medical History Cardiovascular: Congestive heart failure, [place] (with stents in 2018) Respiratory: COPD Neuro: None Endocrine/Autoimmune: None GI: None : None Psych: Depression, Anxiety Musculoskeletal: None Derm: None - Past Surgical History General: Cholecystectomy, Appendectomy Cardiovascular: Coronary stent - Present Medications Home Medications: Ambulatory Orders Medication Instructions Recorded Confirmed Aspirin [Aspirin EC] 81 mg PO DAILY 06/22/19 12/01/19 Atorvastatin Calcium 40 mg PO QPM 06/22/19 12/01/19 Clopidogrel Bisulfate [Clopidogrel] 75 mg PO DAILY 06/22/19 12/01/19 Furosemide 20 mg PO DAILY 06/22/19 12/01/19 Metoprolol Succinate [Toprol Xl] 50 mg PO DAILY 06/22/19 12/01/19 Nitroglycerin 0.4 mg SL Q5M PRN 06/22/19 12/01/19 lisinopriL [Lisinopril] 20 mg PO DAILY 06/22/19 12/01/19 Doxycycline Hyclate 100 mg PO BID #20 capsule 10/24/19 12/01/19 Loperamide HCl [Loperamide] 1 mg PO QID 12/01/19 12/01/19 Lovastatin 60 mg PO DAILY PM 12/01/19 12/01/19 Ondansetron [Ondansetron Odt] 4 mg PO Q4HR 12/01/19 12/01/19 Spironolactone 25 mg PO DAILY 12/01/19 12/01/19 lisinopriL [Lisinopril] 10 mg PO DAILY 12/01/19 12/01/19 - Allergies Allergies/Adverse Reactions: Allergies Allergy/AdvReac Type Severity Reaction Status Date / Time No Known Drug Allergies Allergy Verified 12/01/19 00:03 - Social History Does the pt smoke?: No Smoking Status: Former smoker PD ED PE NORMAL - Vitals Vital signs reviewed: Yes - General General: Alert and oriented X 3, Well developed/nourished, Other (moderate/severe respiratory distress) - HEENT HEENT: Moist mucous membranes - Neck Neck: Supple, no meningeal sign - Abdomen Abdomen: Soft, Non tender - Derm Derm: Normal color, Warm and dry - Extremities Extremities: No edema - Neuro Neuro: Alert and oriented X 3 PD ED PE EXPANDED - Cardiac Cardiac: Tachy, Regular Rhythm - Respiratory Respiratory: Distress, Accessory mm use, Rales (bilaterally), Decreased breath sounds (bilateral). No: Wheezing Results - Vitals Vitals: Vital Signs - 24 hr 11/30/19 12/01/19 12/01/19 23:57 00:05 00:14 Temperature 36.6 C Heart Rate 112 H 103 H 104 H Respiratory 38 H 38 H 37 H Rate Blood Pressure 121/94 H 148/120 H O2 Saturation 100 98 12/01/19 12/01/19 12/01/19 00:29 00:42 00:49 Temperature Heart Rate 89 78 81 Respiratory 28 H 27 H Rate Blood Pressure 139/80 H O2 Saturation 98 98 12/01/19 01:27 Temperature Heart Rate 71 Respiratory 26 H Rate Blood Pressure 144/90 H O2 Saturation 97 Oxygen O2 Source BIPAP - EKG (time done) No standard instances Rate: Rate (enter#) (106) Rhythm: Sinus tachycardia, LAE [place]: Normal QRS: Normal Ischemia: Q waves (II, III, aVF, V2-V6) - Labs Labs: Laboratory Tests 12/01/19 12/01/19 12/01/19 00:15 00:15 00:15 WBC 19.7 H RBC 4.64 Hgb 13.0 Hct 43.0 MCV 92.7 MCH 28.0 MCHC 30.2 L RDW 13.4 Plt Count 439 MPV 11.4 H Neut # (Auto) 11.5 H Lymph # (Auto) 6.3 H Carver # (Auto) 1.1 H Eos # (Auto) 0.5 Baso # (Auto) 0.1 Absolute Nucleated RBC 0.00 Nucleated RBC % 0.0 PT 13.3 H INR 1.2 APTT 29.4 Sodium 136 Potassium 4.4 Chloride 103 Carbon Dioxide 19 L Anion Gap 14.0 H BUN 17 Creatinine 1.3 H Estimated GFR (MDRD) 41 L Glucose 278 H Calcium 8.4 L Total Bilirubin 0.7 AST 37 ALT 36 Alkaline Phosphatase 111 Troponin I High Sens B-Natriuretic Peptide Total Protein 7.3 Albumin 3.4 Globulin 3.9 Albumin/Globulin Ratio 0.9 L Lipase 26 12/01/19 12/01/19 12/01/19 00:15 00:15 01:19 WBC RBC Hgb Hct MCV MCH MCHC RDW Plt Count MPV Neut # (Auto) Lymph # (Auto) Carver # (Auto) Eos # (Auto) Baso # (Auto) Absolute Nucleated RBC Nucleated RBC % PT INR APTT Sodium Potassium Chloride Carbon Dioxide Anion Gap BUN Creatinine Estimated GFR (MDRD) Glucose Calcium Total Bilirubin AST ALT Alkaline Phosphatase Troponin I High Sens 22.3 H* 42.2 H* B-Natriuretic Peptide 2209 H Total Protein Albumin Globulin Albumin/Globulin Ratio Lipase - Rads (name of study) CXR Radiology: Prelim report reviewed, See rad report PD MEDICAL DECISION MAKING - ED course Complexity details: reviewed old records, reviewed results, re-evaluated patient, considered differential, d/w patient ED course: given IV lasix and solumedrol shortly after ED arrival with gradual improvement in degree of respiratory distress, which further improved with placement of bipap. D/W Dr. Martin, evaluated patient in ED and will admit to [facility] Departure - Departure Disposition: 66 [facility] DC/Xfer Clinical Impression: Congestive heart failure Qualifiers: Heart failure type: unspecified Heart failure chronicity: acute on chronic Qualified Code(s): I50.9 - Heart failure, unspecified Condition: Stable Discharge Date/Time: 12/01/19 02:30
[2019-12-01] MEDS ORDERED: IPRATROPIUM/ALBUTEROL 3 ML NEB INH STA (00:04)
[2019-12-01] MEDS ORDERED: methylPREDNISolone SUCCINATE 125 MG/2 ML VIAL IVP STA (00:04)
[2019-12-01] MEDS ORDERED: FUROSEMIDE 40 MG/4 ML VIAL IVP STA (00:05)
[2019-12-01 00:23] LABS: BASOPHILS # (AUTO) 0.1 10^3/uL (0.0-0.1); BASOPHILS % (AUTO) 0.7 %; EOSINOPHILS # (AUTO) 0.5 10^3/uL (0.0-0.7); EOSINOPHILS % (AUTO) 2.3 %; LYMPHOCYTES # (AUTO) 6.3 10^3/uL (1.5-3.5); LYMPHOCYTES % (AUTO) 31.9 %; MEAN CORPUSCULAR HGB CONC 30.2 g/dL (32.0-36.0); MEAN CORPUSCULAR VOLUME 92.7 fL (81.0-99.0); MEAN PLATELET VOLUME 11.4 fL (7.9-10.8); MONOCYTES # (AUTO) 1.1 10^3/uL (0.0-1.0); MONOCYTES % (AUTO) 5.7 %; NEUTROPHILS # (AUTO) 11.5 10^3/uL (1.5-6.6); NEUTROPHILS % (AUTO) 58.4 %; PLT - PLATELET COUNT 439 10^3/uL (130-450); RED BLOOD COUNT 4.64 10^6/uL (4.20-5.40); RED CELL DISTRIBUTION WIDTH 13.4 % (12.0-15.0); WHITE BLOOD COUNT 19.7 x10^3/uL (4.8-10.8)
[2019-12-01 00:27] LABS: INR 1.2 (0.8-1.2); PT - PROTHROMBIN TIME 13.3 secs (9.9-12.6)
[2019-12-01 00:35] LABS: ALBUMIN 3.4 g/dL (3.2-5.5); ALBUMIN/GLOBULIN RATIO 0.9 (1.0-2.2); BILIRUBIN,TOTAL 0.7 mg/dL (0.2-1.0); CALCIUM 8.4 mg/dL (8.5-10.3); CREATININE 1.3 mg/dL (0.4-1.0); PARTIAL THROMBOPLASTIN TIME 29.4 secs (24.9-33.3); TOTAL PROTEIN 7.3 g/dL (6.7-8.2)
[2019-12-01] MEDS ORDERED: ACETAMINOPHEN 325 MG TABLET PO PRN (01:40)
[2019-12-01] MEDS ORDERED: SODIUM CHLORIDE FLUSH 0.9% 10 ML SYRINGE IVP PRN (01:40)
[2019-12-01] MEDS ORDERED: ONDANSETRON 4 MG/2 ML VIAL IVP PRN (01:40)
[2019-12-01] MEDS ORDERED: ONDANSETRON ODT 4 MG TABLET TL PRN (01:40)
[2019-12-01] MEDS ORDERED: ALBUTEROL 1 PUFF INH PRN (01:47)
--- NOTE | 2019-12-01 01:49 | HISTORY & PHYSICAL EXAMINATION ---
Chief Complaint - Chief Complaint Chief Complaint: Shortness of breath History of Present Illness - Admitted From Admitted From:: Home - History Obtained From Records Reviewed: Yes History obtained from: Patient, ER Physician, EMR Exam Limitations: Patient is on BiPAP - History of Present Illness HPI Comment/Other: This is a 69-year-old female with a past medical history significant for coronary artery disease s/p stenting in April of 2019, COPD, heart failure with preserved ejection fraction, chronic hypoxic respiratory failure who presents today due to worsening shortness of breath. She states she been feeling short of breath for the past few days but today it became much more severe. She has been going to cardiac rehab 3 times a week and on Tuesday she felt little short of breath. Today she felt so short of breath that she skipped the session. She reports a little bit of a productive cough. She denies any chest pain or orthopnea. She reports no lower extremity edema. She states at her last burr grinder visit about 1 month ago, her dose of Lasix was decreased from 40 mg daily to 20 mg daily. She states she had a normal stress test back in August and an unremarkable cardiac MRI in October. Her burr grinder is Dr. Giron at [facility]. Reports being compliant with her medications. She reports no recent sick contacts. Denies any sore throat, fevers, chills, nasal congestion. She reports being tested for COVID-19 back in October and this was negative. In the emergency department, she is found to be afebrile temperature of 36.6 C. She was tachycardic with a heart rate of 112. Blood pressure was 121/94. She was quite tachypneic with respiratory rates in the 30s. She initially required a nonrebreather and was transitioned to BiPAP. She was given Nitropaste by EMS. She was given Lasix 60 mg IV in the emergency department. She currently reports feeling much improved. Her labs are significant for a white count of 19.7. Her creatinine is elevated at 1.3. Her blood glucose is 278. Her BNP is 2200 and her troponin is 22.3. Her EKG shows sinus tachycardia with Q waves in the inferior and anterolateral leads. No obvious ST segment changes. Given the above findings, medicine was consulted for admission. I did discuss goals of care the patient and she states that she is a DNR but is okay with intubation as long as it is temporary. She does not want prolonged mechanical ventilation. 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 3 of her brothers also have heart disease and have required CABGs. Living arrangement: At home Living Situation: Alone Social History Notes: She quit smoking back in April. She has been smoking for about 50 years prior to this varying from half a pack to a pack a day. She reports no alcohol use. She lives alone and has been retired for 2 years. 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 She lives next door to her brother. - POLST Patient has POLST: No Meds/Allgy - Home Medications Home Medications: Ambulatory Orders Medication Instructions Recorded Confirmed Aspirin [Aspirin EC] 81 mg PO DAILY 06/22/19 12/01/19 Atorvastatin Calcium 40 mg PO QPM 06/22/19 12/01/19 Clopidogrel Bisulfate [Clopidogrel] 75 mg PO DAILY 06/22/19 12/01/19 Furosemide 20 mg PO DAILY 06/22/19 12/01/19 Metoprolol Succinate [Toprol Xl] 50 mg PO DAILY 06/22/19 12/01/19 Nitroglycerin 0.4 mg SL Q5M PRN 06/22/19 12/01/19 lisinopriL [Lisinopril] 20 mg PO DAILY 06/22/19 12/01/19 Doxycycline Hyclate 100 mg PO BID #20 capsule 10/24/19 12/01/19 Loperamide HCl [Loperamide] 1 mg PO QID 12/01/19 12/01/19 Lovastatin 60 mg PO DAILY PM 12/01/19 12/01/19 Ondansetron [Ondansetron Odt] 4 mg PO Q4HR 12/01/19 12/01/19 Spironolactone 25 mg PO DAILY 12/01/19 12/01/19 lisinopriL [Lisinopril] 10 mg PO DAILY 12/01/19 12/01/19 - Allergies Allergies/Adverse Reactions: Allergies Allergy/AdvReac Type Severity Reaction Status Date / Time No Known Drug Allergies Allergy Verified 12/01/19 00:03 Review of Systems - Constitutional Constitutional: denies: Fatigue, Chills, Weakness, Poor appetite - Ears, Nose & Throat Ears, Nose & Throat: denies: Nasal discharge, Postnasal drainage, Sore throat - Cardiovascular Cariovascular: reports: Exertional dyspnea, Decr. exercise tolerance. denies: Chest pain, Edema - Respiratory Respiratory: reports: Cough, Sputum production. denies: SOB at rest, SOB with exertion - Gastrointestinal Gastrointestinal: denies: Abdominal pain, Nausea, Vomiting - Genitourinary Genitourinary: denies: Dysuria, Frequency, Urgency - Neurological Neurological: denies: General weakness - All Other Systems All Other Systems: reports: Other (Review of systems is limited given the patient is in respiratory distress and on BiPAP.) Prior Level of Functionality: She is independent with her ADLs. Exam - Vital Signs Reviewed Vital Signs: Yes Vital Signs: Vital Signs x48h Temp Pulse Resp BP Pulse Ox 12/01/19 01:27 71 26 H 144/90 H 97 12/01/19 00:49 81 27 H 139/80 H 98 12/01/19 00:42 78 12/01/19 00:29 89 28 H 98 12/01/19 00:14 104 H 37 H 12/01/19 00:05 103 H 38 H 148/120 H 98 11/30/19 23:57 36.6 C 112 H 38 H 121/94 H 100 - Physical Exam General Appearance: positive: Alert, Moderate distress Eyes Bilateral: positive: Normal inspection, Conjunctivae nml ENT: positive: ENT inspection nml, Other (BiPAP mask in place.) Neck: positive: Nml inspection Respiratory: positive: Other (She does appear to be in some respiratory distress and is tachypnic. Breath sounds are diminished in the bilateral bases.). n egative: No respiratory distress, Wheezes, Rales Cardiovascular: positive: No murmur, Tachycardia. negative: Irregularly irregular, Bradycardia, Systolic murmur Abdomen: positive: Non-tender, No distention, Tenderness. negative: Guarding, Rebound Skin: positive: No rash, Warm, Dry Extremities: positive: Full ROM, No pedal edema Neurologic/Psychiatric: positive: Oriented x3, Motor nml. negative: Disoriented to person, Disoriented to place, Disoriented to time Conclusion/Plan - Problem List (1) Acute on chronic respiratory failure with hypoxia Conclusion/Plan: This is secondary to exacerbation of her heart failure with preserved ejection fraction. Her chest x-ray suggestive of pulmonary vascular congestion and her BNP is elevated at 2200. She is requiring BiPAP. She is on 2 L of oxygen at baseline. She was given 60 mg of IV Lasix in the emergency department. We will continue her on Lasix 40 mg IV twice daily. Continue with BiPAP as needed. Daily weights. Strict I's and O's. We will check her for COVID-19. (2) Acute on chronic diastolic (congestive) heart failure Conclusion/Plan: This is a likely cause of her acute on chronic hypoxic respiratory failure. She presents with pulmonary vascular congestion and elevated BNP. Her white count is elevated but her x-ray does not suggest pneumonia. Her last echocardiogram revealed a preserved ejection fraction. We will diurese her with Lasix 60 mg IV twice daily. We will continue her home metoprolol. We will hold lisinopril and spironolactone for the time being given the acute kidney injury. Will consider nitroglycerin if she is persistently hypertensive. Daily BNP. Low- salt diet. Daily weights. Strict I's and O's. Will obtain a repeat echocardiogram if she remains hospitalized until Tuesday when it is available next. 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 Her creatinine is elevated at 1.3. Her baseline is 0.8. This should improve with diuresis. We will continue her on Lasix 40 mg IV twice daily. Hold lisinopril and spironolactone for the time being. Daily BMP. (4) Coronary artery disease Conclusion/Plan: She has known coronary artery disease and had stenting in April 2019. She is on clopidogrel, aspirin, atorvastatin, beta-vinita. Her EKG today does not suggest ischemia. Her troponin is elevated but only mildly and suspect this is likely demand ischemia given the heart failure exacerbation. We will continue her home medications and trend her troponin. Monitor on telemetry. (5) COPD with emphysema Conclusion/Plan: She is on 2 L of oxygen at baseline. This does not appear to be an exacerbation at this moment and her respiratory failure is likely due to CHF. We will con tinue her home inhalers. (6) Hyperglycemia Conclusion/Plan: Her blood glucose is elevated at 278 on her BMP. This may be secondary to the IV steroids she received in the emergency department.. We will check a hemoglobin A1c. Start her on sliding scale and blood glucose checks with meals. - Lab Results Lab results reviewed: Yes Fish Bones: 12/01/19 00:15 12/01/19 00:15 - Diagnostic Imaging Results Diagnostic Imaging Results: positive: Final report reviewed - EKG Results EKG Interpreted Independently: Yes EKG Findings: Her EKG shows sinus tachycardia with Q waves in the inferior and anterolateral leads. No obvious ST segment changes. Relatively unchanged compared to prior EKG. Core Measures - Anticipated LOS I expect patient to be DC'd or transferred within 96 hours.: Yes - Issues Hospital Issues and Management Plan: 69-year-old female presenting with shortness of breath found to have acute on chronic diastolic heart failure and acute on chronic respiratory failure requiring BiPAP. Admit to ICU for IV diuresis and close monitoring. - DVT/VTE - Prophylaxis VTE/DVT Device ordered at admit?: Yes VTE/DVT Prophylaxis med ordered at admit?: Yes
[2019-12-01 06:01] LABS: BASOPHILS % (AUTO) 0.3 %; EOSINOPHILS % (AUTO) 0.1 %; HGB - HEMOGLOBIN 12.3 g/dL (12.0-16.0); LYMPHOCYTES # (AUTO) 0.8 10^3/uL (1.5-3.5); LYMPHOCYTES % (AUTO) 5.7 %; MEAN CORPUSCULAR HEMOGLOBIN 27.9 pg (27.0-31.0); MEAN PLATELET VOLUME 11.5 fL (7.9-10.8); MONOCYTES # (AUTO) 0.3 10^3/uL (0.0-1.0); MONOCYTES % (AUTO) 1.8 %; NEUTROPHILS # (AUTO) 13.6 10^3/uL (1.5-6.6); NEUTROPHILS % (AUTO) 91.4 %; PLT - PLATELET COUNT 345 10^3/uL (130-450); RED BLOOD COUNT 4.41 10^6/uL (4.20-5.40); RED CELL DISTRIBUTION WIDTH 13.4 % (12.0-15.0); WHITE BLOOD COUNT 14.8 x10^3/uL (4.8-10.8)
[2019-12-01 06:13] LABS: CALCIUM 8.5 mg/dL (8.5-10.3); PHOSPHORUS 3.5 mg/dL (2.5-4.6)
[2019-12-01 06:25] LABS: HEMOGLOBIN A1c% 6.1 % (4.27-6.07)
[2019-12-01] MEDS: FUROSEMIDE 40 MG/4 ML VIAL IVP SCH ×2 (06:52→14:25)
[2019-12-01 07:29] LABS: BILIRUBIN,URINE NEGATIVE (NEGATIVE); GLUCOSE, URINE (UA) NEGATIVE (NEGATIVE); KETONES,URINE (UA) NEGATIVE (NEGATIVE); LEUKOCYTE ESTERASE, URINE NEGATIVE (NEGATIVE); NITRITE,URINE NEGATIVE (NEGATIVE); OCCULT BLOOD,URINE NEGATIVE (NEGATIVE); PH,URINE 5.5 PH (5.0-7.5); PROTEIN,URINE NEGATIVE (NEGATIVE); UROBILINOGEN,URINE 0.2 (NORMAL) E.U./dL (NORMAL)
[2019-12-01 07:34] LABS: CLARITY,URINE CLEAR (CLEAR)
[2019-12-01] MEDS ORDERED: CLOPIDOGREL 75 MG TABLET PO SCH (09:00)
[2019-12-01] MEDS ORDERED: ENOXAPARIN 40 MG/0.4 ML SYRINGE SUBQ SCH (09:00)
[2019-12-01] MEDS ORDERED: METOPROLOL SUCCINATE 50 MG TABLET PO SCH (09:00)
[2019-12-01] MEDS ORDERED: ASPIRIN EC 81 MG TABLET PO SCH (09:00)
[2019-12-01] MEDS: SODIUM CHLORIDE FLUSH 0.9% 10 ML SYRINGE IVP SCH ×2 (09:27→14:25)
[2019-12-01] MEDS: INSULIN ASPART 300 UNIT/3 ML PEN SUBQ SCH ×2 (09:30→12:02)
--- NOTE | 2019-12-01 10:26 | XRAY Report ---
PROCEDURE: Chest 1 View X-Ray INDICATIONS: dyspnea TECHNIQUE: One view of the chest was acquired. COMPARISON: 10/24/2019 FINDINGS: Surgical changes and devices: None. Lungs and pleura: Blunting of the costophrenic sulci bilaterally. Minor haziness in the right infrahi lar region. Mediastinum: Mediastinal contours appear normal. Stable cardiomegaly. Prominence of central venous s tructures and interstitial markings Bones and chest wall: No suspicious bony lesions. Overlying soft tissues appear unremarkable. IMPRESSION: 1. Stable cardiomegaly with chronic central vascular interstitial prominence suggesting interstitial edema. 2. Possible early pulmonary edema in the right infrahilar region and trace blunting the costophrenic angles. 3. Concordant with preliminary report. Reviewed by: Martha Crum MD on 12/01/2019 10:24 AM PDT Approved by: Martha Crum MD on 12/01/2019 10:24 AM PDT Station ID: [id number]
--- NOTE | 2019-12-01 12:06 | PHARMACY PROGRESS NOTE ---
- Best Possible Medication History Admit Date and Time: 12/01/19 0140 Processed by: Pharmacy Medication History completed: Yes Patient Interview: Completed Secondary Source(s): Prescription bottles, Pharmacy records, Insurance records As the person ultimately responsible for medication therapy, providers are able to order a medication from an existing home medication list in [facility] via the "Reconcile Routine" prior to Confirmation of that medication by support architect. Such practice is discouraged except when the physician, in their clinical judgment, deems that a medical need exists for a medication without regard to previous use.
--- NOTE | 2019-12-01 15:10 | Discharge Plan ---
Discharge Plan Problem Reviewed?: Yes Disposition: Home, Self Care Condition: Stable Prescriptions: Furosemide [Lasix] 40 mg PO DAILY #30 tablet Diet: Low Sodium Activity Restrictions: Activity as Tolerated Shower Restrictions: No Driving Restrictions: No Health Concerns: Your cigar binder recently cut back your Lasix to half the usual dose because you are doing so well. Unfortunately, you began having shortness of breath. Ambulance was called and you were so severely short of breath that you were almost intubated. Instead you received Lasix, nitroglycerin, and a BiPAP mask to support your breathing. By the time you got to the emergency room you were much better. Once you were admitted to the hospital we made sure you were not having a heart attack. The cardiac enzymes which are the test we use to see if someone is is having a heart attack did rise a little bit. However you did the same thing back in August 2019 and no intervention was done is at that time. You were just diuresed. Stress test was negative in August 2019 and a cardiac MRI was negative in October 2019. You received more Lasix in the ICU and you have done well enough that you did not need the BiPAP mask back again. You feel completely back to normal. You really do not want to stay here anymore since you are doing so well. You are walking in the room. Not needing oxygen. Going to the bathroom on your own. And eating normally. Plan of Treatment: 1. We will be sent home with 40 mg of Lasix as opposed to 20 mg of Lasix. Make sure you take it every morning. Weigh yourself daily. If you increase your weight over 5 pounds from your baseline weight, please double up on your Lasix until your weight goes back down to baseline again. 2. Please see Dr. Kim in follow-up. I will let him know that you were in the hospital and have his office call you to schedule it at their convenience. Care Goals: To remain at baseline exertional status. Not to be short of breath when you walk too much. And to not return to the hospital. Assessment: Patient is willing and enthusiastic to go home. Understands instructions and will follow through. No Smoking: If you smoke, Please STOP! Call for help. Follow-up with: Stefany Giron MD [Physician No Access] -
--- NOTE | 2019-12-01 15:22 | DISCHARGE SUMMARY ---
"Discharge Summary Admit Date: 12/01/19 Discharge Date: 12/01/19 Code Status: Do Not Attempt Resuscitation Condition at Discharge: Stable Discharge Disposition: 01 Home, Self Care - DIAGNOSES Discharge Diagnoses with Status of Each Condition: 1. Acute on chronic respiratory failure with hypoxia 2. Acute on chronic diastolic congestive heart failure 3. Acute kidney injury 4. History of coronary artery disease 5. Elevated troponins 6. COPD with emphysema 7. Hyperglycemia - HPI History of Present Illness: This is a 69-year-old female with a past medical history significant for coronary artery disease s/p stenting in April of 2019, COPD, heart failure with preserved ejection fraction, chronic hypoxic respiratory failure who presents today due to worsening shortness of breath. She states she been feeling short of breath for the past few days but today it became much more severe. She has been going to cardiac rehab 3 times a week and on Tuesday she felt little short of breath. Today she felt so short of breath that she skipped the session. She reports a little bit of a productive cough. She denies any chest pain or orthopnea. She reports no lower extremity edema. She states at her last plant engineering manager visit about 1 month ago, her dose of Lasix was decreased from 40 mg daily to 20 mg daily. She states she had a normal stress test back in August and an unremarkable cardiac MRI in October. Her plant engineering manager is Dr. Giron at [facility]. Reports being compliant with her medications. She reports no recent sick contacts. Denies any sore throat, fevers, chills, nasal congestion. She reports being tested for COVID-19 back in October and this was negative. In the emergency department, she is found to be afebrile temperature of 36.6 C. She was tachycardic with a heart rate of 112. Blood pressure was 121/94. She was quite tachypneic with respiratory rates in the 30s. She initially required a nonrebreather and was transitioned to BiPAP. She was given Nitropaste by EMS. She was given Lasix 60 mg IV in the emergency department. She currently reports feeling much improved. Her labs are significant for a white count of 19.7. Her creatinine is elevated at 1.3. Her blood glucose is 278. Her BNP is 2200 and her troponin is 22.3. Her EKG shows sinus tachycardia with Q waves in the inferior and anterolateral leads. No obvious ST segment changes. Given the above findings, medicine was consulted for admission. I did discuss goals of care the patient and she states that she is a DNR but is okay with intubation as long as it is temporary. She does not want prolonged mechanical ventilation. Past Medical History Cardiovascular: reports: Congestive heart failure, Coronary artery disease, [place] Respiratory: reports: COPD Neuro: reports: None Endocrine/Autoimmune: reports: None GI: reports: None INGOT HEADER: reports: None : reports: None HEENT: reports: None Psych: reports: Depression, Anxiety Musculoskeletal: reports: None Derm: reports: None - CONSULTS | PROCEDURES Procedures: 1. Chest x-ray stable cardiomegaly with chronic central vascular interstitial prominence suggesting interstitial edema. Early edema in the right infrahilar region and trace blunting of the costophrenic angle. 2. Troponin #1 is 22.3. Troponin #2 was 42.2. Troponin #3 was 114.3. Troponin #4 was 130.3. 2. A1c is 6.1%. - HOSPITAL COURSE Hospital Course: The patient was placed on BiPAP. Quickly recovered and was able to come off BiPAP. She did not require any further treatment and within 12 hours was back to baseline. Completely normal as far she was concerned. She had no chest pain, shortness of breath. Was walking in and out of her room to go to the bathroom. Watching TV. Eating breakfast and lunch. She approached me and said that she really wanted to go home. She rationalize that she has had good cardiac follow-up with work-up in the last 6 months. I explained to her that she had a bump in her troponins which could be associated with her flash pulmonary edema or acute congestive heart failure. Or it could be sign of coronary ischemia. I did talk her into letting me check 1 more troponin before she left but she still wanted to go. Dr. Laird who is well control instructor from [facility] was called and had AWMI with LAD stent 8 months ago. Troponins were double with the August hospitalization from what we were seeing here today and she was not taken to the irrigation laborer then. So Dr. Laird also feels comfortable letting her go home with double the lasix dose. She has sent a message to Dr. Kim's optometry assistant to call the patient and make an appointment in the next month. At discharge blood pressure was she is on 2 L nasal cannula oxygen. That is the oxygen she uses at home. O2 sat is 93 to 95%. Respirations are 19. Pulse is 58-65. She is 5 foot 6 inches tall and weighs 109.5 kg. An alert oriented vivacious elderly female. Needs no help to get out of bed and walk in room. No increased respiratory effort. No chest pain. Neck is supple. Lungs are clear with diminished breath sounds at the bases. She has a regular rate and rhythm. The abdomen is obese, soft, nontender. Ankles have no edema. I have asked her to follow-up with her plant engineering manager . I will be sending him a copy of this discharge summary so that his office can call her at their convenience. It is Dr. Stefany Giron at [facility]. [phone]. . She had had her Lasix dose recently cut in half. I have asked her to resume her usual dose of 40 mg a day. Check her weight daily. If her weight goes up by 5 pounds in 2 days to double up on her Lasix until she goes back down to the baseline weight she is supposed to be yet. - ALLERGIES Allergies/Adverse Reactions: Allergies Allergy/AdvReac Type Severity Reaction Status Date / Time No Known Drug Allergies Allergy Verified 12/01/19 00:03 - MEDICATIONS Home Medications: Ambulatory Orders Medication Instructions Recorded Confirmed Aspirin [Aspirin EC] 81 mg PO DAILY 06/22/19 12/01/19 Atorvastatin Calcium 40 mg PO QPM 06/22/19 12/01/19 Clopidogrel Bisulfate [Clopidogrel] 75 mg PO DAILY 06/22/19 12/01/19 Metoprolol Succinate [Toprol Xl] 50 mg PO DAILY 06/22/19 12/01/19 Nitroglycerin 0.4 mg SL Q5M PRN 06/22/19 12/01/19 Albuterol Sulfate [Albuterol 2 puffs INH TID PRN 12/01/19 12/01/19 Sulfate Hfa] Furosemide [Lasix] 40 mg PO DAILY #30 tablet 12/01/19 Loperamide HCl [Loperamide] 2 mg PO QID PRN 12/01/19 12/01/19 Sertraline [Zoloft] 25 mg PO DAILY 12/01/19 12/01/19 Spironolactone 12.5 mg PO DAILY 12/01/19 12/01/19 lisinopriL [Lisinopril] 10 mg PO DAILY 12/01/19 12/01/19 - LABS Result Diagrams: 12/01/19 05:09 12/01/19 05:09"
[2019-12-01 15:30] VITALS: BP 115/57
[2019-12-01] MEDS ORDERED: ATORVASTATIN 40 MG TABLET PO SCH (21:00)
== END 2019-12-01 16:45 | disposition home or self-care (01) | DRG 291 ==
LOC: EDBD → EDUNIT# → ED 23:57 → ICU 12-01 01:40
PROVIDERS: ADMIT Internal Medicine; ATTEND Specialist
DX: I50.9 Heart failure, unspecified (principal); R06.03 Acute respiratory distress; J44.9 Chronic obstructive pulmonary disease, unspecified; I50.33 Acute on chronic diastolic (congestive) heart failure; J96.21 Acute and chronic respiratory failure with hypoxia; N17.9 Acute kidney failure, unspecified; Z87.891 Personal history of nicotine dependence; I25.10 Atherosclerotic heart disease of native coronary artery without angina pectoris; R79.89 Other specified abnormal findings of blood chemistry; J43.9 Emphysema, unspecified; R73.9 Hyperglycemia, unspecified; I25.2 Old myocardial infarction; Z99.81 Dependence on supplemental oxygen; Z95.5 Presence of coronary angioplasty implant and graft; R00.0 Tachycardia, unspecified; Z66 Do not resuscitate; E66.9 Obesity, unspecified; Z68.39 Body mass index [BMI] 39.0-39.9, adult
CPT/HCPCS: 36415; 71045; 80048; 80053; 81003; 83036; 83690; 83735; 83880; 84100; 84484; 85025; 85610; 85730; 87150; 93005; 94640; 94660; 96374; 99284; 99285; A9270; J1650; U0004; 81001; 87086

== ENCOUNTER 2020-01-16 13:20 | Outpatient (CLI) | payer MEDICARE | END 2020-01-16 13:21 | disposition home or self-care (01) | LOC: RT 13:20 | PROVIDERS: ATTEND Family Medicine | DX: J44.9 Chronic obstructive pulmonary disease, unspecified (principal) | CPT/HCPCS: 94060 ==

== ENCOUNTER 2020-04-16 18:02 | Emergency (ER) | payer MEDICARE ==
--- NOTE | 2020-04-16 19:03 | XRAY Report ---
PROCEDURE: Chest 1 View X-Ray INDICATIONS: Chest Pain TECHNIQUE: One view of the chest was acquired. COMPARISON: CXR 11/30/2019. FINDINGS: Surgical changes and devices: None. Lungs and pleura: No pleural effusions or pneumothorax. Mildly prominent pulmonary markings bilatera lly which is less conspicuous compared to prior exam. Mediastinum: Mediastinal contours appear normal. Heart size is enlarged, unchanged. Bones and chest wall: No suspicious bony lesions. Overlying soft tissues appear unremarkable. IMPRESSION: Question of mild pulmonary vasculature engorgement. Cardiomegaly. Reviewed by: Lenin Nelson MD on 04/16/2020 6:01 PM [facility] Approved by: Lenin Nelson MD on 04/16/2020 6:01 PM [facility] Station ID: [id number]
[2020-04-16 19:08] LABS: BASOPHILS # (AUTO) 0.1 10^3/uL (0.0-0.1); BASOPHILS % (AUTO) 0.4 %; EOSINOPHILS # (AUTO) 0.4 10^3/uL (0.0-0.7); HCT - HEMATOCRIT 44.1 % (37.0-47.0); HGB - HEMOGLOBIN 14.1 g/dL (12.0-16.0); LYMPHOCYTES # (AUTO) 2.3 10^3/uL (1.5-3.5); LYMPHOCYTES % (AUTO) 16.9 %; MEAN CORPUSCULAR HEMOGLOBIN 27.7 pg (27.0-31.0); MEAN CORPUSCULAR VOLUME 86.6 fL (81.0-99.0); MEAN PLATELET VOLUME 10.1 fL (7.9-10.8); MONOCYTES # (AUTO) 0.9 10^3/uL (0.0-1.0); MONOCYTES % (AUTO) 6.4 %; NEUTROPHILS # (AUTO) 9.9 10^3/uL (1.5-6.6); NEUTROPHILS % (AUTO) 72.9 %; PLT - PLATELET COUNT 384 10^3/uL (130-450); RED BLOOD COUNT 5.09 10^6/uL (4.20-5.40); RED CELL DISTRIBUTION WIDTH 14.2 % (12.0-15.0); WHITE BLOOD COUNT 13.5 x10^3/uL (4.8-10.8)
--- NOTE | 2020-04-16 19:12 | ED Physician Documentation ---
PD HPI DYSPNEA - Stated complaint Stated Complaint: SOA - Chief complaint Chief Complaint: Resp - History obtained from History obtained from: Patient - History of Present Illness Timing - onset: How many days ago (4-5) Timing - onset during: Light activity Timing - duration: Days Timing - details: Gradual onset, Still present Inciting event(s): URI (She does have a history of COPD and has had increased dyspnea associated with some cough and green sputum production over the last 4 to 5 days. Had not really increased her MDI or nebulizer use. She had gone from as needed oxygen to continuous with improvement in her dyspnea but worse cough.) Improved by: O2, Inhaler/neb Worsened by: Exertion, Coughing. No: Laying flat Associated symptoms: Cough, Wheezing, Chest pain / discomfort (hurts with cough), Bilateral edema (chronic with slight worse the past few days.). No: Fever, Hemoptysis Similar symptoms before: Diagnosis (both CHF and COPD.) Review of Systems Constitutional: reports: Myalgias, Fatigue. denies: Fever Nose: reports: Congestion. denies: Rhinorrhea / runny nose Throat: denies: Sore throat Cardiac: reports: Chest pain / pressure, Pedal edema (chronic). denies: Palpitations, Calf pain Respiratory: reports: Dyspnea, Cough, Wheezing GI: denies: Abdominal Pain, Nausea, Vomiting, Diarrhea, Bloody / black stool Skin: denies: Rash Musculoskeletal: reports: Extremity swelling Neurologic: reports: Generalized weakness. denies: Focal weakness, Numbness, Near syncope, Altered mental status, Headache PD PAST MEDICAL HISTORY - Past Medical History Cardiovascular: Congestive heart failure, [place] (with stents in 2018) Respiratory: COPD Neuro: None Endocrine/Autoimmune: None GI: None SOFTWARE CONTROLS ENGINEER: None : None HEENT: None Psych: Depression, Anxiety Musculoskeletal: None Derm: None - Past Surgical History Past Surgical History: Yes General: Cholecystectomy, Appendectomy Cardiovascular: Coronary stent - Present Medications Home Medications: Ambulatory Orders Medication Instructions Recorded Confirmed Aspirin [Aspirin EC] 81 mg PO DAILY 06/22/19 12/01/19 Atorvastatin Calcium 40 mg PO QPM 06/22/19 12/01/19 Clopidogrel Bisulfate [Clopidogrel] 75 mg PO DAILY 06/22/19 12/01/19 Metoprolol Succinate [Toprol Xl] 50 mg PO DAILY 06/22/19 12/01/19 Nitroglycerin 0.4 mg SL Q5M PRN 06/22/19 12/01/19 Albuterol Sulfate [Albuterol 2 puffs INH TID PRN 12/01/19 12/01/19 Sulfate Hfa] Furosemide [Lasix] 40 mg PO DAILY #30 tablet 12/01/19 Loperamide HCl [Loperamide] 2 mg PO QID PRN 12/01/19 12/01/19 Sertraline [Zoloft] 25 mg PO DAILY 12/01/19 12/01/19 Spironolactone 12.5 mg PO DAILY 12/01/19 12/01/19 lisinopriL [Lisinopril] 10 mg PO DAILY 12/01/19 12/01/19 Albuterol 2.5 mg INH Q4H PRN #30 neb 04/16/20 Cephalexin [Keflex] 500 mg PO Q6H #28 capsule 04/16/20 dexAMETHasone [Decadron] 4 mg PO DAILY #7 tablet 04/16/20 - Allergies Allergies/Adverse Reactions: Allergies Allergy/AdvReac Type Severity Reaction Status Date / Time No Known Drug Allergies Allergy Verified 04/16/20 18:15 - Social History Does the pt smoke?: No Smoking Status: Former smoker Does the pt drink ETOH?: No Does the pt have substance abuse?: No - Immunizations Immunizations are current?: Yes - POLST Patient has POLST: No PD ED PE NORMAL - Vitals Vital signs reviewed: Yes (94% on 2 lpm NC, which is less than her home ox. ) - General General: Alert and oriented X 3, No acute distress (some increased resp rate. Wheezing noted. ), Well developed/nourished - HEENT HEENT: Moist mucous membranes, Pharynx benign - Neck Neck: Supple, no meningeal sign, No adenopathy - Cardiac Cardiac: RRR (bradycardic, but patient says is her usual heart rate (50-55).), No murmur - Respiratory Respiratory: No: Clear bilaterally (diffuse exp wheezing and prolonged exp phase, but able to talk in sentences. ) - Abdomen Abdomen: Normal bowel sounds, Soft, Non tender - Derm Derm: Normal color, Warm and dry - Extremities Extremities: No tenderness to palpate, Normal ROM s pain, No calf tenderness / cord, Other (1+ edema in both lower legs. No tenderness nor redness. ) - Neuro Neuro: Alert and oriented X 3, No motor deficit, Normal speech Eye Opening: Spontaneous Motor: Obeys Commands Verbal: Oriented GCS Score: 15 Results - Vitals Vitals: Vital Signs - 24 hr 04/16/20 04/16/20 04/16/20 18:05 18:45 18:50 Temperature 37 C Heart Rate 55 L 48 L Respiratory 20 13 Rate Blood Pressure 137/81 H 109/74 O2 Saturation 94 95 04/16/20 04/16/20 04/16/20 19:50 19:53 20:25 Temperature Heart Rate 48 L 48 L 51 L Respiratory 19 19 20 Rate Blood Pressure 118/61 138/79 H O2 Saturation 96 100 04/16/20 04/16/20 04/16/20 20:30 20:49 21:35 Temperature 36.3 C L 528.3 C H Heart Rate 52 L 53 L 62 Respiratory 16 18 18 Rate Blood Pressure 117/77 118/77 O2 Saturation 95 18 L Oxygen O2 Source Nasal cannula Oxygen Flow Rate 2 - EKG (time done) 18:41 Rate: Rate (enter#) (48) Rhythm: Sinus bradycardia [place]: Normal Intervals: Normal ND. No: Prolonged QT Ischemia: Normal ST segments. No: ST elevation c/w ischemia, ST depression - Labs Labs: Laboratory Tests 04/16/20 04/16/20 04/16/20 18:58 18:58 18:58 WBC 13.5 H RBC 5.09 Hgb 14.1 Hct 44.1 MCV 86.6 MCH 27.7 MCHC 32.0 RDW 14.2 Plt Count 384 MPV 10.1 Neut # (Auto) 9.9 H Lymph # (Auto) 2.3 Drew # (Auto) 0.9 Eos # (Auto) 0.4 Baso # (Auto) 0.1 Absolute Nucleated RBC 0.00 Nucleated RBC % 0.0 Sodium 139 Potassium 3.9 Chloride 102 Carbon Dioxide 26 Anion Gap 11.0 BUN 15 Creatinine 0.9 Estimated GFR (MDRD) 62 L Glucose 106 H Calcium 8.6 Magnesium Total Bilirubin 0.5 AST 85 H ALT 64 H Alkaline Phosphatase 106 Troponin I High Sens 15.7 H* B-Natriuretic Peptide Total Protein 7.2 Albumin 3.5 Globulin 3.7 Albumin/Globulin Ratio 0.9 L Lipase 17 L Nasal Adenovirus (PCR) Nasal B. parapertussis DNA (PCR) Nasal Coronavir 229E PCR Nasal Coronavir HKU1 PCR Nasal Coronavir NL63 PCR Nasal Coronavir OC43 PCR Nasal Enterovir/Rhinovir PCR Nasal Influenza B PCR Nasal Influenza A PCR Nasal Parainfluen 1 PCR Nasal Parainfluen 2 PCR Nasal Parainfluen 3 PCR Nasal Parainfluen 4 PCR Nasal RSV (PCR) Nasal B.pertussis DNA PCR Nasal C.pneumoniae (PCR) [place] Human Metapneumo PCR Nasal M.pneumoniae (PCR) Nasal SARS-CoV-2 (PCR) 04/16/20 04/16/20 04/16/20 18:58 18:58 20:03 WBC RBC Hgb Hct MCV MCH MCHC RDW Plt Count MPV Neut # (Auto) Lymph # (Auto) Drew # (Auto) Eos # (Auto) Baso # (Auto) Absolute Nucleated RBC Nucleated RBC % Sodium Potassium Chloride Carbon Dioxide Anion Gap BUN Creatinine Estimated GFR (MDRD) Glucose Calcium Magnesium 2.0 Total Bilirubin AST ALT Alkaline Phosphatase Troponin I High Sens B-Natriuretic Peptide 1126 H Total Protein Albumin Globulin Albumin/Globulin Ratio Lipase Nasal Adenovirus (PCR) NOT DETECTED Nasal B. parapertussis DNA (PCR) NOT DETECTED Nasal Coronavir 229E PCR NOT DETECTED Nasal Coronavir HKU1 PCR NOT DETECTED Nasal Coronavir NL63 PCR NOT DETECTED Nasal Coronavir OC43 PCR NOT DETECTED Nasal Enterovir/Rhinovir PCR NOT DETECTED Nasal Influenza B PCR NOT DETECTED Nasal Influenza A PCR NOT DETECTED Nasal Parainfluen 1 PCR NOT DETECTED Nasal Parainfluen 2 PCR NOT DETECTED Nasal Parainfluen 3 PCR NOT DETECTED Nasal Parainfluen 4 PCR NOT DETECTED Nasal RSV (PCR) NOT DETECTED Nasal B.pertussis DNA PCR NOT DETECTED Nasal C.pneumoniae (PCR) NOT DETECTED [place] Human Metapneumo PCR NOT DETECTED Nasal M.pneumoniae (PCR) NOT DETECTED Nasal SARS-CoV-2 (PCR) NOT DETECTED - Rads (name of study) chest xray Radiology: Prelim report reviewed (no infiltrates. Question of some vascular engorgement. ), See rad report PD MEDICAL DECISION MAKING - ED course Complexity details: reviewed results (seems likely more COPD with concern of bronchtiits.Some chronic CHF, but no singificant edema on CXR. BNP comparably high to prior. Improved with Duoneb. She feels able to try going home. ), considered differential (she felt improved and stable enough to want to go home. Has oxygen and nebs there she can use. ), d/w patient Departure - Departure Disposition: 01 Home, Self Care Clinical Impression: Acute exacerbation of COPD with asthma, Bronchitis CHF, chronic Qualifiers: Heart failure type: unspecified Qualified Code(s): I50.9 - Heart failure, unspecified Dyspnea Qualifiers: Dyspnea type: shortness of breath Qualified Code(s): R06.02 - Shortness of breath Condition: Stable Record reviewed to determine appropriate education?: Yes Instructions: ED COPD Flare Follow-Up: Hardik Palacios MD [Primary Care Provider] - Prescriptions: Albuterol 2.5 mg INH Q4H PRN #30 neb PRN Reason: Wheezing dexAMETHasone [Decadron] 4 mg PO DAILY #7 tablet Cephalexin [Keflex] 500 mg PO Q6H #28 capsule Comments: Since steroids as prescribed. Use your nebulizer at home 4 times a day for the next several days to a week. Extra times as needed. Recheck if not improving well over the next 2 to 3 days. Continue your oxygen at 2 L nasal cannula at home as needed continually for a few days and then back to as needed if improved. Medications were transmitted to [facility] [employer]. Discharge Date/Time: 04/16/20 21:39
[2020-04-16 19:23] LABS: ALBUMIN 3.5 g/dL (3.2-5.5); ALBUMIN/GLOBULIN RATIO 0.9 (1.0-2.2); BILIRUBIN,TOTAL 0.5 mg/dL (0.2-1.0); CALCIUM 8.6 mg/dL (8.5-10.3); CREATININE 0.9 mg/dL (0.4-1.0); POTASSIUM 3.9 mmol/L (3.5-5.0); TOTAL PROTEIN 7.2 g/dL (6.7-8.2)
[2020-04-16] MEDS ORDERED: IPRATROPIUM/ALBUTEROL 3 ML NEB INH STA (19:27)
[2020-04-16] MEDS ORDERED: cefTRIAXone 1 GM VIAL IVP STA (19:27)
[2020-04-16] MEDS ORDERED: DEXAMETHASONE 10 MG/ML VIAL IVP STA (19:27)
[2020-04-16] MEDS ORDERED: ALBUTEROL NEB 2.5 MG/3 ML INH STA (21:14)
[2020-04-16 21:39] VITALS: BP 118/77
[2020-04-16 21:56] LABS: B. PARAPERTUSSIS- RESP PCR PAN NOT DETECTED; B. PERTUSSIS- RESP PCR PANEL NOT DETECTED; C. PNEUMONIAE- RESP PCR PANEL NOT DETECTED; CORONAVIRUS 229E-RESP PCR NOT DETECTED; CORONAVIRUS HKU1-RESP PCR NOT DETECTED; CORONAVIRUS NL63-RESP PCR NOT DETECTED; CORONAVIRUS OC43-RESP PCR NOT DETECTED; HUMAN METAPNEUMOVIRUS NOT DETECTED; INFLUENZA A- RESP PCR PANEL NOT DETECTED; INFLUENZA B - RESP PCR PANEL NOT DETECTED; M. PNEUMONIAE- RESP PCR PANEL NOT DETECTED; PARAINFLUENZA VIRUS 1 NOT DETECTED; PARAINFLUENZA VIRUS 2 NOT DETECTED; PARAINFLUENZA VIRUS 3 NOT DETECTED; PARAINFLUENZA VIRUS 4 NOT DETECTED; RHINOVIRUS/ENTEROVIRUS NOT DETECTED; RSV- RESP PCR PANEL NOT DETECTED; SARS-CoV-2 -RESP PCR PANEL NOT DETECTED
== END 2020-04-16 21:39 | disposition home or self-care (01) ==
LOC: ED 18:02
DX: I50.9 Heart failure, unspecified (principal); J44.1 Chronic obstructive pulmonary disease with (acute) exacerbation; J20.9 Acute bronchitis, unspecified; J44.0 Chronic obstructive pulmonary disease with (acute) lower respiratory infection; Z99.81 Dependence on supplemental oxygen; Z95.5 Presence of coronary angioplasty implant and graft; Z87.891 Personal history of nicotine dependence; R60.9 Edema, unspecified; Z20.828 Contact with and (suspected) exposure to other viral communicable diseases; I25.2 Old myocardial infarction; R00.1 Bradycardia, unspecified; R53.83 Other fatigue
CPT/HCPCS: 0202U; 36415; 80053; 83690; 83735; 83880; 84484; 85025; 93005; 94640; 96374; 96375; 99284

== ENCOUNTER 2020-06-09 19:19 | Outpatient (CLI) | payer MEDICARE | END 2020-06-09 19:20 | disposition critical access hospital (66) | LOC: EMS 19:19 | PROVIDERS: ATTEND Emergency Medicine | DX: R06.02 Shortness of breath (principal) | CPT/HCPCS: A0425; A0427 ==

== ENCOUNTER 2020-06-09 19:27 | Inpatient (IN) | payer MEDICARE ==
--- NOTE | 2020-06-09 19:31 | ED Physician Documentation ---
PD HPI DYSPNEA - Stated complaint Stated Complaint: SOA - History obtained from History obtained from: Patient - Additional information Additional information: 69-year-old woman history of COPD, wears intermittent oxygen at home. Non-STEMI status post stenting a year ago, history of heart failure who presents for 2 weeks of shortness of breath especially today. She has nonproductive cough. No fevers or calf pain. No pedal edema. EMS found her to be in respiratory distress with a sat of 88% at home. 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 : None HEENT: None Psych: Depression, Anxiety Musculoskeletal: None Derm: None - Past Surgical History Past Surgical History: Yes General: Cholecystectomy, Appendectomy Cardiovascular: Coronary stent - Present Medications Home Medications: Ambulatory Orders Medication Instructions Recorded Confirmed Aspirin [Aspirin EC] 81 mg PO DAILY 06/22/19 06/09/20 Atorvastatin Calcium 40 mg PO QPM 06/22/19 06/09/20 Clopidogrel Bisulfate [Clopidogrel] 75 mg PO DAILY 06/22/19 06/09/20 Metoprolol Succinate [Toprol Xl] 50 mg PO DAILY 06/22/19 06/09/20 Nitroglycerin 0.4 mg SL Q5M PRN 06/22/19 06/09/20 Albuterol Sulfate [Albuterol 2 puffs INH TID PRN 12/01/19 06/09/20 Sulfate Hfa] Furosemide [Lasix] 40 mg PO DAILY #30 tablet 12/01/19 06/09/20 Sertraline [Zoloft] 25 mg PO DAILY 12/01/19 06/09/20 Spironolactone 12.5 mg PO DAILY 12/01/19 06/09/20 lisinopriL [Lisinopril] 10 mg PO DAILY 12/01/19 06/09/20 Albuterol 2.5 mg INH Q4H PRN #30 neb 04/16/20 06/09/20 - Allergies Allergies/Adverse Reactions: Allergies Allergy/AdvReac Type Severity Reaction Status Date / Time Sulfa (Sulfonamide Allergy Hives Verified 06/09/20 19:43 Antibiotics) - Social History Does the pt smoke?: No Smoking Status: Former smoker Does the pt drink ETOH?: No Does the pt have substance abuse?: No - Immunizations Immunizations are current?: Yes - POLST Patient has POLST: No Results - Vitals Vitals: Vital Signs - 24 hr 06/09/20 06/09/20 06/09/20 19:40 20:18 20:48 Temperature 37.1 C 37.1 C Heart Rate 73 58 L 58 L Respiratory 28 H 26 H 21 Rate Blood Pressure 159/43 H 152/109 H 140/64 H O2 Saturation 95 96 96 Oxygen O2 Source Nasal cannula Oxygen Flow Rate 4 - EKG (time done) 1935 Rate: Rate (enter#) (69) Rhythm: NSR [place]: Normal Intervals: Normal [place] Ischemia: Q waves (anterior/lat). No: ST elevation c/w ischemia - Labs Labs: Laboratory Tests 06/09/20 06/09/20 06/09/20 19:38 19:55 19:55 WBC 16.1 H RBC 4.77 Hgb 13.0 Hct 41.0 MCV 86.0 MCH 27.3 MCHC 31.7 L RDW 14.2 Plt Count 371 MPV 10.3 Neut # (Auto) 13.1 H Lymph # (Auto) 1.9 [place] # (Auto) 0.7 Eos # (Auto) 0.2 Baso # (Auto) 0.1 Absolute Nucleated RBC 0.00 Nucleated RBC % 0.0 VBG pH VBG pCO2 VBG pO2 VBG HCO3 VBG Total CO2 VBG O2 Saturation VBG Base Excess Sodium 136 Potassium 3.4 L Chloride 103 Carbon Dioxide 22 Anion Gap 11.0 BUN 10 Creatinine 0.8 Estimated GFR (MDRD) 71 L Glucose 153 H Calcium 8.2 L Total Bilirubin 0.8 AST 19 ALT 18 Alkaline Phosphatase 90 Troponin I High Sens B-Natriuretic Peptide Total Protein 6.6 L Albumin 3.3 Globulin 3.3 Albumin/Globulin Ratio 1.0 Nasal Adenovirus (PCR) NOT DETECTED Nasal B. parapertussis DNA (PCR) NOT DETECTED Nasal Coronavir 229E PCR NOT DETECTED Nasal Coronavir HKU1 PCR NOT DETECTED Nasal Coronavir NL63 PCR NOT DETECTED Nasal Coronavir OC43 PCR NOT DETECTED Nasal Enterovir/Rhinovir PCR NOT DETECTED Nasal Influenza B PCR NOT DETECTED Nasal Influenza A PCR NOT DETECTED Nasal Parainfluen 1 PCR NOT DETECTED Nasal Parainfluen 2 PCR NOT DETECTED Nasal Parainfluen 3 PCR NOT DETECTED Nasal Parainfluen 4 PCR NOT DETECTED Nasal RSV (PCR) NOT DETECTED Nasal B.pertussis DNA PCR NOT DETECTED Nasal C.pneumoniae (PCR) NOT DETECTED [place] Human Metapneumo PCR NOT DETECTED Nasal M.pneumoniae (PCR) NOT DETECTED Nasal SARS-CoV-2 (PCR) NOT DETECTED 06/09/20 06/09/20 06/09/20 19:55 19:55 19:55 WBC RBC Hgb Hct MCV MCH MCHC RDW Plt Count MPV Neut # (Auto) Lymph # (Auto) [place] # (Auto) Eos # (Auto) Baso # (Auto) Absolute Nucleated RBC Nucleated RBC % VBG pH 7.419 H VBG pCO2 37.2 L VBG pO2 140.1 H VBG HCO3 23.5 VBG Total CO2 24.7 VBG O2 Saturation 98.8 H VBG Base Excess -0.6 Sodium Potassium Chloride Carbon Dioxide Anion Gap BUN Creatinine Estimated GFR (MDRD) Glucose Calcium Total Bilirubin AST ALT Alkaline Phosphatase Troponin I High Sens 13.5 B-Natriuretic Peptide 1504 H Total Protein Albumin Globulin Albumin/Globulin Ratio Nasal Adenovirus (PCR) Nasal B. parapertussis DNA (PCR) Nasal Coronavir 229E PCR Nasal Coronavir HKU1 PCR Nasal Coronavir NL63 PCR Nasal Coronavir OC43 PCR Nasal Enterovir/Rhinovir PCR Nasal Influenza B PCR Nasal Influenza A PCR Nasal Parainfluen 1 PCR Nasal Parainfluen 2 PCR Nasal Parainfluen 3 PCR Nasal Parainfluen 4 PCR Nasal RSV (PCR) Nasal B.pertussis DNA PCR Nasal C.pneumoniae (PCR) [place] Human Metapneumo PCR Nasal M.pneumoniae (PCR) Nasal SARS-CoV-2 (PCR) - Rads (name of study) cxr Radiology: EMP read contemporaneously (chf) PD MEDICAL DECISION MAKING - ED course ED course: This 70-year-old woman presents with shortness of breath. She is quite symptomatic, and after work-up it seems that it is likely a combination of COPD and CHF. The CHF would be class IV and she remains tachypneic in the department here. She was given 100 mg of Lasix IV, Solu-Medrol. She declined further breathing treatments did not feel like they were helping. Dr. Gil will admit. Departure - Departure Disposition: 66 [facility] DC/Xfer Clinical Impression: Severe chronic obstructive pulmonary disease, Acute on chronic diastolic (congestive) heart failure Dyspnea Qualifiers: Dyspnea type: shortness of breath Qualified Code(s): R06.02 - Shortness of breath; R06.00 - Dyspnea, unspecified; R06.01 - Orthopnea Condition: Serious
[2020-06-09] MEDS ORDERED: methylPREDNISolone SUCCINATE 125 MG/2 ML VIAL IVP STA (19:52)
[2020-06-09 19:59] LABS: BASOPHILS # (AUTO) 0.1 10^3/uL (0.0-0.1); BASOPHILS % (AUTO) 0.4 %; EOSINOPHILS # (AUTO) 0.2 10^3/uL (0.0-0.7); EOSINOPHILS % (AUTO) 1.4 %; LYMPHOCYTES # (AUTO) 1.9 10^3/uL (1.5-3.5); LYMPHOCYTES % (AUTO) 11.8 %; MEAN CORPUSCULAR HEMOGLOBIN 27.3 pg (27.0-31.0); MEAN CORPUSCULAR HGB CONC 31.7 g/dL (32.0-36.0); MEAN PLATELET VOLUME 10.3 fL (7.9-10.8); MONOCYTES # (AUTO) 0.7 10^3/uL (0.0-1.0); MONOCYTES % (AUTO) 4.5 %; NEUTROPHILS # (AUTO) 13.1 10^3/uL (1.5-6.6); NEUTROPHILS % (AUTO) 81.5 %; PLT - PLATELET COUNT 371 10^3/uL (130-450); RED BLOOD COUNT 4.77 10^6/uL (4.20-5.40); RED CELL DISTRIBUTION WIDTH 14.2 % (12.0-15.0); WHITE BLOOD COUNT 16.1 x10^3/uL (4.8-10.8)
[2020-06-09 20:02] LABS: VBG BASE EXCESS -0.6 mmol/L (-2 - +2); VBG HCO3 23.5 mmol/L (23-28); VBG OXYGEN SATURATION 98.8 % (60-80); VBG PCO2 37.2 mmHg (41-51); VBG PH 7.419 (7.31-7.41); VBG PO2 140.1 mmHg (25-47); VBG TOTAL CO2 24.7 mmol/L (24-29)
[2020-06-09 20:11] LABS: ALBUMIN 3.3 g/dL (3.2-5.5); BILIRUBIN,TOTAL 0.8 mg/dL (0.2-1.0); CALCIUM 8.2 mg/dL (8.5-10.3); CREATININE 0.8 mg/dL (0.4-1.0); POTASSIUM 3.4 mmol/L (3.5-5.0); TOTAL PROTEIN 6.6 g/dL (6.7-8.2)
--- NOTE | 2020-06-09 20:30 | XRAY Report ---
PROCEDURE: Chest 1 View X-Ray INDICATIONS: dyspnea TECHNIQUE: One view of the chest was acquired. COMPARISON: 04/16/2020 FINDINGS: Surgical changes and devices: None. Lungs and pleura: No pleural effusions or pneumothorax. Pulmonary edema. Mediastinum: Mediastinal contours appear normal. Cardiomegaly. Bones and chest wall: No suspicious bony lesions. Overlying soft tissues appear unremarkable. IMPRESSION: Congestive heart failure exacerbation. Reviewed by: Edouard Sainz MD on 06/09/2020 8:29 PM PST Approved by: Edouard Sainz MD on 06/09/2020 8:29 PM PST Station ID: [id number]
[2020-06-09] MEDS ORDERED: NITROGLYCERIN 2% PASTE TOP STA (20:34)
[2020-06-09] MEDS ORDERED: FUROSEMIDE 100 MG/10 ML VIAL IVP STA (20:35)
[2020-06-09 20:51] LABS: B. PARAPERTUSSIS- RESP PCR PAN NOT DETECTED; B. PERTUSSIS- RESP PCR PANEL NOT DETECTED; C. PNEUMONIAE- RESP PCR PANEL NOT DETECTED; CORONAVIRUS 229E-RESP PCR NOT DETECTED; CORONAVIRUS HKU1-RESP PCR NOT DETECTED; CORONAVIRUS NL63-RESP PCR NOT DETECTED; CORONAVIRUS OC43-RESP PCR NOT DETECTED; HUMAN METAPNEUMOVIRUS NOT DETECTED; INFLUENZA A- RESP PCR PANEL NOT DETECTED; INFLUENZA B - RESP PCR PANEL NOT DETECTED; M. PNEUMONIAE- RESP PCR PANEL NOT DETECTED; PARAINFLUENZA VIRUS 1 NOT DETECTED; PARAINFLUENZA VIRUS 2 NOT DETECTED; PARAINFLUENZA VIRUS 3 NOT DETECTED; PARAINFLUENZA VIRUS 4 NOT DETECTED; RHINOVIRUS/ENTEROVIRUS NOT DETECTED; RSV- RESP PCR PANEL NOT DETECTED; SARS-CoV-2 -RESP PCR PANEL NOT DETECTED
[2020-06-09] MEDS ORDERED: IPRATROPIUM/ALBUTEROL 3 ML NEB INH PRN (21:07)
--- NOTE | 2020-06-09 21:13 | HISTORY & PHYSICAL EXAMINATION ---
Chief Complaint - Chief Complaint Chief Complaint: dyspnea, hypoxia History of Present Illness - Admitted From Admitted From:: [facility] ED - History Obtained From Records Reviewed: yes History obtained from: patient - History of Present Illness HPI Comment/Other: Patient is a 70-year-old female with medical history significant for COPD, CHF, coronary artery disease who presented to the ED with dyspnea and hypoxia. Her symptoms have been going on for couple of weeks but got progressively worse over the past few days. She also had a nonproductive cough for the past week. She is unable to ambulate to the bathroom without having to stop a couple of times to catch her breath. As a result of this she called EMS today. She was noted to have an oxygen saturation in the 80s despite 2 L of oxygen and she was wheezing when EMS arrived. She was given a DuoNeb breathing treatment which improved her breathing. In the ED work-up included a chest x-ray which showed fluid overload. She also had a BNP of 1500. She was given Lasix 100 mg IV x1 in the ED. As a result of the above she was presented for admission. By the time of my evaluation the patient's wheezing had improved/resolved. She appeared to be breathing more comfortably. She was actively diuresing significantly. She denied chest pain, abdominal pain, nausea, vomiting, fever or chills. She expressed that she has been very depressed lately. Apparently she lives in a basement room/apartment with no outside windows. She spends most of the time in bed. Also the winter, rain, cold temperatures and the current pandemic further limits her ability to go anywhere. Her brother lives next door and [place] 4 [place] she has not [place] them in a long time. She does not have a good reason why. 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 3 of her brothers also have heart disease and have required CABGs. Social History Notes: She quit smoking back in April 2019. She has been smoking for about 50 years prior to this varying from half a pack to a pack a day. She reports no alcohol use. She lives alone and has been retired for 2 years. 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 She lives next door to her brother. - POLST Patient has POLST: No POLST Status: Full Code Meds/Allgy - Home Medications Home Medications: Ambulatory Orders Medication Instructions Recorded Confirmed Aspirin [Aspirin EC] 81 mg PO DAILY 06/22/19 06/09/20 Atorvastatin Calcium 40 mg PO QPM 06/22/19 06/09/20 Clopidogrel Bisulfate [Clopidogrel] 75 mg PO DAILY 06/22/19 06/09/20 Metoprolol Succinate [Toprol Xl] 50 mg PO DAILY 06/22/19 06/09/20 Nitroglycerin 0.4 mg SL Q5M PRN 06/22/19 06/09/20 Albuterol Sulfate [Albuterol 2 puffs INH TID PRN 12/01/19 06/09/20 Sulfate Hfa] Furosemide [Lasix] 40 mg PO DAILY #30 tablet 12/01/19 06/09/20 Sertraline [Zoloft] 25 mg PO DAILY 12/01/19 06/09/20 Spironolactone 12.5 mg PO DAILY 12/01/19 06/09/20 lisinopriL [Lisinopril] 10 mg PO DAILY 12/01/19 06/09/20 Albuterol 2.5 mg INH Q4H PRN #30 neb 04/16/20 06/09/20 - Allergies Allergies/Adverse Reactions: Allergies Allergy/AdvReac Type Severity Reaction Status Date / Time Sulfa (Sulfonamide Allergy Hives Verified 06/09/20 19:43 Antibiotics) Review of Systems - Constitutional Constitutional: denies: Fatigue, Fever, Chills, Weakness - Eyes Eyes: denies: Pain, Dipolpia - Ears, Nose & Throat Ears, Nose & Throat: denies: Ear pain, Sore throat - Cardiovascular Cariovascular: reports: Exertional dyspnea. denies: Irregular heart rate, Palpitations, Chest pain, Edema, Lightheadedness, Syncope - Respiratory Respiratory: reports: Cough, Wheezing, SOB at rest, SOB with exertion. denies: Sputum production - Gastrointestinal Gastrointestinal: denies: Abdominal pain, Abdominal distention, Constipation, Diarrhea, Nausea, Vomiting, Coffee grounds emesis, Reflux/heartburn - Genitourinary Genitourinary: denies: Dysuria, Frequency, Urgency, Hematuria - Musculoskeletal Musculoskeletal: denies: Muscle pain, Back pain, Muscle aches - Integumentary Integumentary: reports: Rash (candidal rash in intrigenous area). denies: Pruritis, Lesions - Neurological Neurological: denies: General weakness, Focal weakness, Headache, Dizziness, Numbness, Memory problems - Psychiatric Psychiatric: denies: Depression, Anxiety - Endocrine Endocrine: denies: Polyuria, Polydypsia - Hematologic/Lymphatic Hematologic/Lymphatic: denies: Anemia, Bruising, Petechiae Prior Level of Functionality: Normally independent of activities of daily living. Exam - Vital Signs Vital Signs: Vital Signs x48h Temp Pulse Resp BP Pulse Ox 06/09/20 20:48 37.1 C 58 L 21 140/64 H 96 06/09/20 20:18 58 L 26 H 152/109 H 96 06/09/20 19:40 37.1 C 73 28 H 159/43 H 95 - Physical Exam General Appearance: positive: Alert, Moderate distress Eyes Bilateral: positive: PERRL, EOMI ENT: positive: No signs of dehydration Neck: positive: No JVD, Trachea midline Respiratory: positive: Chest non-tender, No respiratory distress. negative: Wheezes, Rales, Rhonchi Cardiovascular: positive: Regular rate & rhythm, No murmur Abdomen: positive: Non-tender, No organomegaly, Nml bowel sounds, No distention, Guarding, Rebound Back: positive: Nml inspection Skin: positive: Color nml, Warm, Dry, Skin rash (candidal rash in intrigenous areas). negative: Diaphoresis Extremities: positive: Non-tender, Full ROM, Nml appearance, No pedal edema Neurologic/Psychiatric: positive: Oriented x3, Mood/affect nml. negative: We akness Conclusion/Plan - Problem List (1) Acute on chronic diastolic (congestive) heart failure Conclusion/Plan: Patient's BNP was 1500. Chest x-ray showed fluid overload. Patient was given Lasix 100 mg IV in the ED. Lasix 40 mg IV twice daily has been ordered to start tomorrow morning. We will continue patient's spironolactone. 2D echocardiogram in the morning. Her last echocardiogram was on 06/22/2019. Overall left ventricular systolic function was normal with an ejection fraction of 60 to 65%. Diastolic function was indeterminate. There was no evidence of pulmonary hypertension or significant valvular dysfunction. Daily weight. Sodium restriction. Fluid restriction to a total of 2 L daily only. (2) Acute on chronic respiratory failure with hypoxia Conclusion/Plan: Suspect patient's CHF exacerbation to be the likely cause Anticipate improvement with diuresing. Patient was given Lasix 100 mg IV x1 in the ED. Lasix 40 mg IV twice daily has been ordered. Patient is on supplemental oxygen. Patient also has baseline COPD for which a dose of Solu-Medrol was given in the ED. We will hold off on further Solu-Medrol doses. DuoNeb has been ordered prn. (3) COPD (chronic obstructive pulmonary disease) Conclusion/Plan: Patient is on 2 L of oxygen via nasal cannula at baseline. Currently she is on 3 L with an oxygen saturation of 96%. Patient was given a dose of Solu-Medrol 125 mg IV in the ED. We will hold off on any further administration of Solu-Medrol. DuoNeb has been ordered as needed. Qualifiers: COPD type: unspecified COPD Qualified Code(s): J44.9 - Chronic obstructive pulmonary disease, unspecified (4) Coronary artery disease Conclusion/Plan: She underwent PCI with stent placed in April 2019. She is on Plavix, aspirin, atorvastatin and metoprolol XL. Will continue. Troponin done in the ED was normal. Will trend times tomorrow. Qualifiers: Associated angina: without angina (5) Leukocytosis Conclusion/Plan: BC is 16.1. Suspect this is reactive. We will monitor closely. If patient becomes febrile or leukocytosis persist, will consider obtaining blood cultures and antibiotics. (6) Thi rash of groin Conclusion/Plan: Nystatin powder ordered - Lab Results Fish Bones: 06/10/20 02:10 06/10/20 02:10 Core Measures - Anticipated LOS I expect patient to be DC'd or transferred within 96 hours.: Yes - DVT/VTE - Prophylaxis VTE/DVT Device ordered at admit?: Yes VTE/DVT Prophylaxis med ordered at admit?: Yes
[2020-06-09] MEDS: SODIUM CHLORIDE FLUSH 0.9% 10 ML SYRINGE IVP SCH (23:55)
[2020-06-09] MEDS: NYSTATIN POWDER 15 GM TOP SCH (23:55)
[2020-06-10 02:14] LABS: BASOPHILS % (AUTO) 0.2 %; EOSINOPHILS % (AUTO) 0.1 %; HCT - HEMATOCRIT 41.7 % (37.0-47.0); LYMPHOCYTES # (AUTO) 0.7 10^3/uL (1.5-3.5); LYMPHOCYTES % (AUTO) 5.5 %; MEAN CORPUSCULAR HEMOGLOBIN 27.1 pg (27.0-31.0); MEAN CORPUSCULAR HGB CONC 31.2 g/dL (32.0-36.0); MEAN CORPUSCULAR VOLUME 86.9 fL (81.0-99.0); MEAN PLATELET VOLUME 10.5 fL (7.9-10.8); MONOCYTES # (AUTO) 0.1 10^3/uL (0.0-1.0); MONOCYTES % (AUTO) 0.8 %; NEUTROPHILS # (AUTO) 11.8 10^3/uL (1.5-6.6); PLT - PLATELET COUNT 358 10^3/uL (130-450); RED CELL DISTRIBUTION WIDTH 14.2 % (12.0-15.0); WHITE BLOOD COUNT 12.6 x10^3/uL (4.8-10.8)
[2020-06-10 02:25] LABS: CALCIUM 8.2 mg/dL (8.5-10.3); CREATININE 1.1 mg/dL (0.4-1.0); POTASSIUM 3.6 mmol/L (3.5-5.0)
[2020-06-10] MEDS: SODIUM CHLORIDE FLUSH 0.9% 10 ML SYRINGE IVP PRN ×2 (06:24→13:51)
[2020-06-10] MEDS: PANTOPRAZOLE 40 MG TABLET PO SCH (06:24)
[2020-06-10] MEDS: FUROSEMIDE 40 MG/4 ML VIAL IVP SCH ×2 (06:24→13:51)
[2020-06-10] MEDS: ENOXAPARIN 40 MG/0.4 ML SYRINGE SUBQ SCH (09:13)
[2020-06-10] MEDS: lisinopriL 5 MG TABLET PO SCH (09:13)
[2020-06-10] MEDS: ASPIRIN EC 81 MG TABLET PO SCH (09:13)
[2020-06-10] MEDS: CLOPIDOGREL 75 MG TABLET PO SCH (09:13)
[2020-06-10] MEDS: NYSTATIN POWDER 15 GM TOP SCH ×2 (09:14→20:54)
[2020-06-10] MEDS: METOPROLOL SUCCINATE 50 MG TABLET PO SCH (09:14)
[2020-06-10] MEDS: SODIUM CHLORIDE FLUSH 0.9% 10 ML SYRINGE IVP SCH ×2 (09:14→20:54)
[2020-06-10] MEDS: SERTRALINE 25 MG TABLET PO SCH (09:20)
[2020-06-10] MEDS: SPIRONOLACTONE 25 MG TABLET PO SCH (10:37)
--- NOTE | 2020-06-10 11:19 | PROVIDER PROGRESS NOTE ---
Subjective - Prog Note Date Prog Note Date: 06/10/20 - Subjective Pt reports feeling: Improved Subjective: Pt reports feeling "much better" since admission and less SOB, though still on higher levels of oxygen than her baseline (4L during my visit). Denies fevers, chills, n/v. Slept well overnight, currently sitting up in bed reading a book. Objective - Vital Signs/Intake & Output Reviewed Vital Signs: Yes Vital Signs: Vital Signs x48h Temp Pulse Resp BP Pulse Ox 06/10/20 08:29 36.6 C 54 L 18 124/49 L 94 06/10/20 03:39 36.5 C 52 L 16 106/64 94 Intake & Output: Intake & Output 06/07/20 06/08/20 06/09/20 06/10/20 23:59 23:59 23:59 23:59 Intake Total 1020 Output Total 1200 Balance -180 - Objective General Appearance: positive: No acute distress, Alert Eyes Bilateral: positive: Normal inspection, PERRL, EOMI ENT: positive: ENT inspection nml, No signs of dehydration Neck: positive: Nml inspection Respiratory: positive: Chest non-tender, No respiratory distress, Breath sounds nml, Other Cardiovascular: positive: Regular rate & rhythm Peripheral Pulses: 2+ Radial (R), 2+ Radial (L), 2+ Dorsalis pedis (R), 2+ Dorsalis pedis (L) Abdomen: positive: Non-tender, No organomegaly, Nml bowel sounds, No distention Extremities: positive: Non-tender, Full ROM, Pedal edema - Lab Results Fish Bones: 06/10/20 02:10 06/10/20 02:10 Other Labs: Lab Results x24hrs 06/10/20 06/10/20 06/10/20 Range/Units 08:00 02:10 02:10 WBC 12.6 H (4.8-10.8) x10^3/uL RBC 4.80 (4.20-5.40) 10^6/uL Hgb 13.0 (12.0-16.0) g/dL Hct 41.7 (37.0-47.0) % MCV 86.9 (81.0-99.0) fL MCH 27.1 (27.0-31.0) pg MCHC 31.2 L (32.0-36.0) g/dL RDW 14.2 (12.0-15.0) % Plt Count 358 (130-450) 10^3/uL MPV 10.5 (7.9-10.8) fL Neut # (Auto) 11.8 H (1.5-6.6) 10^3/uL Lymph # (Auto) 0.7 L (1.5-3.5) 10^3/uL [place] # (Auto) 0.1 (0.0-1.0) 10^3/uL Eos # (Auto) 0.0 (0.0-0.7) 10^3/uL Baso # (Auto) 0.0 (0.0-0.1) 10^3/uL Absolute Nucleated RBC 0.00 x10^3/uL Nucleated RBC % 0.0 /100WBC VBG pH (7.31-7.41) VBG pCO2 (41-51) mmHg VBG pO2 (25-47) mmHg VBG HCO3 (23-28) mmol/L VBG Total CO2 (24-29) mmol/L VBG O2 Saturation (60-80) % VBG Base Excess (-2 - +2) mmol/L Sodium 136 (135-145) mmol/L Potassium 3.6 (3.5-5.0) mmol/L Chloride 99 L (101-111) mmol/L Carbon Dioxide 24 (21-32) mmol/L Anion Gap 13.0 (6-13) BUN 14 (6-20) mg/dL Creatinine 1.1 H (0.4-1.0) mg/dL Estimated GFR (MDRD) 49 L (>89) Glucose 277 H (70-100) mg/dL Calcium 8.2 L (8.5-10.3) mg/dL Total Bilirubin (0.2-1.0) mg/dL AST (10-42) IU/L ALT (10-60) IU/L Alkaline Phosphatase (42-121) IU/L Troponin I High Sens 9.8 (2.3-14.8) ng/L B-Natriuretic Peptide (5-100) pg/mL Total Protein (6.7-8.2) g/dL Albumin (3.2-5.5) g/dL Globulin (2.1-4.2) g/dL Albumin/Globulin Ratio (1.0-2.2) Nasal Adenovirus (PCR) Nasal B. parapertussis DNA (PCR) Nasal Coronavir 229E PCR Nasal Coronavir HKU1 PCR Nasal Coronavir NL63 PCR Nasal Coronavir OC43 PCR Nasal Enterovir/Rhinovir PCR Nasal Influenza B PCR Nasal Influenza A PCR Nasal Parainfluen 1 PCR Nasal Parainfluen 2 PCR Nasal Parainfluen 3 PCR Nasal Parainfluen 4 PCR Nasal RSV (PCR) Nasal B.pertussis DNA PCR Nasal C.pneumoniae (PCR) [place] Human Metapneumo PCR Nasal M.pneumoniae (PCR) Nasal SARS-CoV-2 (PCR) 06/10/20 06/09/20 06/09/20 Range/Units 02:10 19:55 19:55 WBC (4.8-10.8) x10^3/uL RBC (4.20-5.40) 10^6/uL Hgb (12.0-16.0) g/dL Hct (37.0-47.0) % MCV (81.0-99.0) fL MCH (27.0-31.0) pg MCHC (32.0-36.0) g/dL RDW (12.0-15.0) % Plt Count (130-450) 10^3/uL MPV (7.9-10.8) fL Neut # (Auto) (1.5-6.6) 10^3/uL Lymph # (Auto) (1.5-3.5) 10^3/uL [place] # (Auto) (0.0-1.0) 10^3/uL Eos # (Auto) (0.0-0.7) 10^3/uL Baso # (Auto) (0.0-0.1) 10^3/uL Absolute Nucleated RBC x10^3/uL Nucleated RBC % /100WBC VBG pH 7.419 H (7.31-7.41) VBG pCO2 37.2 L (41-51) mmHg VBG pO2 140.1 H (25-47) mmHg VBG HCO3 23.5 (23-28) mmol/L VBG Total CO2 24.7 (24-29) mmol/L VBG O2 Saturation 98.8 H (60-80) % VBG Base Excess -0.6 (-2 - +2) mmol/L Sodium (135-145) mmol/L Potassium (3.5-5.0) mmol/L Chloride (101-111) mmol/L Carbon Dioxide (21-32) mmol/L Anion Gap (6-13) BUN (6-20) mg/dL Creatinine (0.4-1.0) mg/dL Estimated GFR (MDRD) (>89) Glucose (70-100) mg/dL Calcium (8.5-10.3) mg/dL Total Bilirubin (0.2-1.0) mg/dL AST (10-42) IU/L ALT (10-60) IU/L Alkaline Phosphatase (42-121) IU/L Troponin I High Sens 11.1 (2.3-14.8) ng/L B-Natriuretic Peptide 1504 H (5-100) pg/mL Total Protein (6.7-8.2) g/dL Albumin (3.2-5.5) g/dL Globulin (2.1-4.2) g/dL Albumin/Globulin Ratio (1.0-2.2) Nasal Adenovirus (PCR) Nasal B. parapertussis DNA (PCR) Nasal Coronavir 229E PCR Nasal Coronavir HKU1 PCR Nasal Coronavir NL63 PCR Nasal Coronavir OC43 PCR Nasal Enterovir/Rhinovir PCR Nasal Influenza B PCR Nasal Influenza A PCR Nasal Parainfluen 1 PCR Nasal Parainfluen 2 PCR Nasal Parainfluen 3 PCR Nasal Parainfluen 4 PCR Nasal RSV (PCR) Nasal B.pertussis DNA PCR Nasal C.pneumoniae (PCR) [place] Human Metapneumo PCR Nasal M.pneumoniae (PCR) Nasal SARS-CoV-2 (PCR) 06/09/20 06/09/20 06/09/20 Range/Units 19:55 19:55 19:55 WBC 16.1 H (4.8-10.8) x10^3/uL RBC 4.77 (4.20-5.40) 10^6/uL Hgb 13.0 (12.0-16.0) g/dL Hct 41.0 (37.0-47.0) % MCV 86.0 (81.0-99.0) fL MCH 27.3 (27.0-31.0) pg MCHC 31.7 L (32.0-36.0) g/dL RDW 14.2 (12.0-15.0) % Plt Count 371 (130-450) 10^3/uL MPV 10.3 (7.9-10.8) fL Neut # (Auto) 13.1 H (1.5-6.6) 10^3/uL Lymph # (Auto) 1.9 (1.5-3.5) 10^3/uL [place] # (Auto) 0.7 (0.0-1.0) 10^3/uL Eos # (Auto) 0.2 (0.0-0.7) 10^3/uL Baso # (Auto) 0.1 (0.0-0.1) 10^3/uL Absolute Nucleated RBC 0.00 x10^3/uL Nucleated RBC % 0.0 /100WBC VBG pH (7.31-7.41) VBG pCO2 (41-51) mmHg VBG pO2 (25-47) mmHg VBG HCO3 (23-28) mmol/L VBG Total CO2 (24-29) mmol/L VBG O2 Saturation (60-80) % VBG Base Excess (-2 - +2) mmol/L Sodium 136 (135-145) mmol/L Potassium 3.4 L (3.5-5.0) mmol/L Chloride 103 (101-111) mmol/L Carbon Dioxide 22 (21-32) mmol/L Anion Gap 11.0 (6-13) BUN 10 (6-20) mg/dL Creatinine 0.8 (0.4-1.0) mg/dL Estimated GFR (MDRD) 71 L (>89) Glucose 153 H (70-100) mg/dL Calcium 8.2 L (8.5-10.3) mg/dL Total Bilirubin 0.8 (0.2-1.0) mg/dL AST 19 (10-42) IU/L ALT 18 (10-60) IU/L Alkaline Phosphatase 90 (42-121) IU/L Troponin I High Sens 13.5 (2.3-14.8) ng/L B-Natriuretic Peptide (5-100) pg/mL Total Protein 6.6 L (6.7-8.2) g/dL Albumin 3.3 (3.2-5.5) g/dL Globulin 3.3 (2.1-4.2) g/dL Albumin/Globulin Ratio 1.0 (1.0-2.2) Nasal Adenovirus (PCR) Nasal B. parapertussis DNA (PCR) Nasal Coronavir 229E PCR Nasal Coronavir HKU1 PCR Nasal Coronavir NL63 PCR Nasal Coronavir OC43 PCR Nasal Enterovir/Rhinovir PCR Nasal Influenza B PCR Nasal Influenza A PCR Nasal Parainfluen 1 PCR Nasal Parainfluen 2 PCR Nasal Parainfluen 3 PCR Nasal Parainfluen 4 PCR Nasal RSV (PCR) Nasal B.pertussis DNA PCR Nasal C.pneumoniae (PCR) [place] Human Metapneumo PCR Nasal M.pneumoniae (PCR) Nasal SARS-CoV-2 (PCR) 06/09/20 Range/Units 19:38 WBC (4.8-10.8) x10^3/uL RBC (4.20-5.40) 10^6/uL Hgb (12.0-16.0) g/dL Hct (37.0-47.0) % MCV (81.0-99.0) fL MCH (27.0-31.0) pg MCHC (32.0-36.0) g/dL RDW (12.0-15.0) % Plt Count (130-450) 10^3/uL MPV (7.9-10.8) fL Neut # (Auto) (1.5-6.6) 10^3/uL Lymph # (Auto) (1.5-3.5) 10^3/uL [place] # (Auto) (0.0-1.0) 10^3/uL Eos # (Auto) (0.0-0.7) 10^3/uL Baso # (Auto) (0.0-0.1) 10^3/uL Absolute Nucleated RBC x10^3/uL Nucleated RBC % /100WBC VBG pH (7.31-7.41) VBG pCO2 (41-51) mmHg VBG pO2 (25-47) mmHg VBG HCO3 (23-28) mmol/L VBG Total CO2 (24-29) mmol/L VBG O2 Saturation (60-80) % VBG Base Excess (-2 - +2) mmol/L Sodium (135-145) mmol/L Potassium (3.5-5.0) mmol/L Chloride (101-111) mmol/L Carbon Dioxide (21-32) mmol/L Anion Gap (6-13) BUN (6-20) mg/dL Creatinine (0.4-1.0) mg/dL Estimated GFR (MDRD) (>89) Glucose (70-100) mg/dL Calcium (8.5-10.3) mg/dL Total Bilirubin (0.2-1.0) mg/dL AST (10-42) IU/L ALT (10-60) IU/L Alkaline Phosphatase (42-121) IU/L Troponin I High Sens (2.3-14.8) ng/L B-Natriuretic Peptide (5-100) pg/mL Total Protein (6.7-8.2) g/dL Albumin (3.2-5.5) g/dL Globulin (2.1-4.2) g/dL Albumin/Globulin Ratio (1.0-2.2) Nasal Adenovirus (PCR) NOT DETECTED Nasal B. parapertussis DNA (PCR) NOT DETECTED Nasal Coronavir 229E PCR NOT DETECTED Nasal Coronavir HKU1 PCR NOT DETECTED Nasal Coronavir NL63 PCR NOT DETECTED Nasal Coronavir OC43 PCR NOT DETECTED Nasal Enterovir/Rhinovir PCR NOT DETECTED Nasal Influenza B PCR NOT DETECTED Nasal Influenza A PCR NOT DETECTED Nasal Parainfluen 1 PCR NOT DETECTED Nasal Parainfluen 2 PCR NOT DETECTED Nasal Parainfluen 3 PCR NOT DETECTED Nasal Parainfluen 4 PCR NOT DETECTED Nasal RSV (PCR) NOT DETECTED Nasal B.pertussis DNA PCR NOT DETECTED Nasal C.pneumoniae (PCR) NOT DETECTED [place] Human Metapneumo PCR NOT DETECTED Nasal M.pneumoniae (PCR) NOT DETECTED Nasal SARS-CoV-2 (PCR) NOT DETECTED - Diagnostic Imaging Diagnostic Imaging Results: positive: Final report reviewed ABX Reporting Has patient been on IV antibiotics over the past 48 hours?: No Sepsis Event Note (H) - Evaluation Current Stage of Sepsis: Ruled out Assessment/Plan - Problem List (1) Acute on chronic diastolic (congestive) heart failure Impression: Patient's BNP on admission was 1500. Reports at home she sleeps with 2 pillows at baseline, not able to walk to her bathroom (approximately 15 steps) without getting short of breath. Recently seen in ED April 2020 for dyspnea. Chest x- ray this admission showed fluid overload and CHF exacerbation. 2D echocardiogram pending. Her last echocardiogram was on 06/22/2019. Overall left ventricular systolic function was normal with an ejection fraction of 60 to 65%. Diastolic function was indeterminate. There was no evidence of pulmonary hypertension or significant valvular dysfunction. 1. Home CHF meds continued (Metoprolol, Lisinopril, Lasix, Spironolactone) 2. 2D Echo pending 3. Daily weights (118kg today 06/10) 4. Sodium restricted diet-may need education as she reports snacking at home throughout the day due to boredom and depression 5. 2L fluid restriction/daily 6. May benefit from referral to outpatient CHF education program for further education-will discuss with patient to gauge her interest, given this admission and recent visit to ED for dyspnea 7. Follow up PCP (2) Acute on chronic respiratory failure with hypoxia Impression: Suspect patient's CHF exacerbation to be the likely cause. She reports improved SOB with diuresis but continues to require 4L NC for sat 94% today. Baseline COPD, given Solu-Medrol in ED. 1. Lasix 40 mg IV BID 2. Supplemental oxygen, wean to baseline 2L NC when able. 3. DuoNebs PRN (3) COPD (chronic obstructive pulmonary disease) Impression: Patient is on 2 L of oxygen via nasal cannula at baseline. Currently she is on 4 L with an oxygen saturation of 94%. Patient was given a dose of Solu-Medrol 125 mg IV in the ED and reports feeling less short of breath despite higher oxygen requirements. We will hold off on any further administration of Solu-Medrol. No wheezes noted on exam. DuoNeb has been ordered as needed. Qualifiers: COPD type: unspecified COPD Qualified Code(s): J44.9 - Chronic obstructive pulmonary disease, unspecified (4) Coronary artery disease Impression: She underwent PCI with stent placed in April 2019. She is on Plavix, aspirin, atorvastatin and metoprolol XL, continued. Troponins negative x3. Qualifiers: Associated angina: without angina (5) Thi rash of groin Impression: Intertriginous candidal skin breakdown noted in abdominal skin folds. 1. Keep clean and dry 2. Nystatin powder daily (6) Leukocytosis Impression: Likely a stress response. WBC 16 on admission, down to 12 today. VSS. Afebri le, normotensive. Will continue to monitor but likely related to steroids and stress from CHF exacerbation. (7) Depression Impression: Reports she takes Sertraline at home, dose increased approximately 6 months ago by her PCP. Does not feel it has helped. Isolated home life, reports not having enough energy to reach out to family and therefore stays at home reading and snacking. 1. Continue home dose Sertraline 2. Follow up PCP
[2020-06-10] MEDS: ATORVASTATIN 40 MG TABLET PO SCH (20:54)
[2020-06-11] MEDS: PANTOPRAZOLE 40 MG TABLET PO SCH (01:08)
[2020-06-11] MEDS: SODIUM CHLORIDE FLUSH 0.9% 10 ML SYRINGE IVP SCH ×3 (01:09→16:38)
[2020-06-11 05:26] LABS: BASOPHILS # (AUTO) 0.1 10^3/uL (0.0-0.1); BASOPHILS % (AUTO) 0.5 %; EOSINOPHILS # (AUTO) 0.2 10^3/uL (0.0-0.7); EOSINOPHILS % (AUTO) 1.4 %; HCT - HEMATOCRIT 40.3 % (37.0-47.0); HGB - HEMOGLOBIN 12.3 g/dL (12.0-16.0); LYMPHOCYTES # (AUTO) 3.2 10^3/uL (1.5-3.5); LYMPHOCYTES % (AUTO) 21.3 %; MEAN CORPUSCULAR HEMOGLOBIN 26.9 pg (27.0-31.0); MEAN CORPUSCULAR HGB CONC 30.5 g/dL (32.0-36.0); MEAN CORPUSCULAR VOLUME 88.2 fL (81.0-99.0); MEAN PLATELET VOLUME 10.7 fL (7.9-10.8); MONOCYTES # (AUTO) 0.8 10^3/uL (0.0-1.0); MONOCYTES % (AUTO) 5.4 %; NEUTROPHILS # (AUTO) 10.6 10^3/uL (1.5-6.6); NEUTROPHILS % (AUTO) 70.8 %; PLT - PLATELET COUNT 342 10^3/uL (130-450); RED BLOOD COUNT 4.57 10^6/uL (4.20-5.40); RED CELL DISTRIBUTION WIDTH 14.2 % (12.0-15.0)
[2020-06-11 05:41] LABS: CALCIUM 8.6 mg/dL (8.5-10.3); CREATININE 0.9 mg/dL (0.4-1.0); POTASSIUM 3.3 mmol/L (3.5-5.0)
[2020-06-11] MEDS: FUROSEMIDE 40 MG/4 ML VIAL IVP SCH ×2 (05:49→14:16)
[2020-06-11] MEDS: ASPIRIN EC 81 MG TABLET PO SCH (08:21)
[2020-06-11] MEDS: ENOXAPARIN 40 MG/0.4 ML SYRINGE SUBQ SCH (08:22)
[2020-06-11] MEDS: lisinopriL 5 MG TABLET PO SCH (08:23)
[2020-06-11] MEDS: CLOPIDOGREL 75 MG TABLET PO SCH (08:23)
[2020-06-11] MEDS: SERTRALINE 25 MG TABLET PO SCH (08:23)
[2020-06-11] MEDS: METOPROLOL SUCCINATE 50 MG TABLET PO SCH (08:24)
[2020-06-11] MEDS: NYSTATIN POWDER 15 GM TOP SCH ×2 (08:24→21:02)
[2020-06-11] MEDS: SPIRONOLACTONE 25 MG TABLET PO SCH (08:25)
--- NOTE | 2020-06-11 11:29 | PROVIDER PROGRESS NOTE ---
Subjective - Prog Note Date Prog Note Date: 06/11/20 - Subjective Pt reports feeling: Improved (Feeling okay this morning, continues to require 4L NC. Still gets SOB with ambulation to the bathroom. Reports she slept okay overnight.) Objective - Vital Signs/Intake & Output Reviewed Vital Signs: Yes Vital Signs: Vital Signs x48h Temp Pulse Resp BP Pulse Ox 06/11/20 08:00 36.4 C L 50 L 16 124/65 97 06/11/20 06:09 49 L 122/92 H 06/11/20 05:00 36.6 C 51 L 18 135/59 H 98 Intake & Output: Intake & Output 06/08/20 06/09/20 06/10/20 06/11/20 23:59 23:59 23:59 23:59 Intake Total 1601 320 Output Total 1850 8445 Balance -249 -6082 - Objective General Appearance: positive: No acute distress Eyes Bilateral: positive: Normal inspection, PERRL ENT: positive: ENT inspection nml, No signs of dehydration Neck: positive: Nml inspection Respiratory: positive: Chest non-tender, No respiratory distress, Breath sounds nml Cardiovascular: positive: Regular rate & rhythm, Bradycardia (HR 40-50s) Peripheral Pulses: 2+ Radial (R), 2+ Radial (L) Abdomen: positive: Non-tender, No organomegaly, Nml bowel sounds, No distention Skin: positive: Color nml Extremities: positive: Non-tender, Full ROM, Nml appearance, Pedal edema Neurologic/Psychiatric: positive: Oriented x3 - Lab Results Fish Bones: 06/11/20 04:42 06/11/20 04:42 Other Labs: Lab Results x24hrs 06/11/20 06/11/20 Range/Units 04:42 04:42 WBC 15.0 H (4.8-10.8) x10^3/uL RBC 4.57 (4.20-5.40) 10^6/uL Hgb 12.3 (12.0-16.0) g/dL Hct 40.3 (37.0-47.0) % MCV 88.2 (81.0-99.0) fL MCH 26.9 L (27.0-31.0) pg MCHC 30.5 L (32.0-36.0) g/dL RDW 14.2 (12.0-15.0) % Plt Count 342 (130-450) 10^3/uL MPV 10.7 (7.9-10.8) fL Neut # (Auto) 10.6 H (1.5-6.6) 10^3/uL Lymph # (Auto) 3.2 (1.5-3.5) 10^3/uL [place] # (Auto) 0.8 (0.0-1.0) 10^3/uL Eos # (Auto) 0.2 (0.0-0.7) 10^3/uL Baso # (Auto) 0.1 (0.0-0.1) 10^3/uL Absolute Nucleated RBC 0.00 x10^3/uL Nucleated RBC % 0.0 /100WBC Sodium 136 (135-145) mmol/L Potassium 3.3 L (3.5-5.0) mmol/L Chloride 99 L (101-111) mmol/L Carbon Dioxide 27 (21-32) mmol/L Anion Gap 10.0 (6-13) BUN 22 H (6-20) mg/dL Creatinine 0.9 (0.4-1.0) mg/dL Estimated GFR (MDRD) 62 L (>89) Glucose 139 H (70-100) mg/dL Calcium 8.6 (8.5-10.3) mg/dL - Diagnostic Imaging Diagnostic Imaging Results: positive: Final report reviewed ABX Reporting Has patient been on IV antibiotics over the past 48 hours?: No Sepsis Event Note (H) - Evaluation Current Stage of Sepsis: Ruled out Assessment/Plan - Problem List (1) Acute on chronic diastolic (congestive) heart failure Impression: Patient's BNP on admission was 1500. Reports at home she sleeps with 2 pillows at baseline, not able to walk to her bathroom (approximately 15 steps) without getting short of breath. Recently seen in ED April 2020 for dyspnea. Chest x- ray this admission showed fluid overload and CHF exacerbation. 2D echocardiogram done yesterday. It showed mild concentric left ventricle hypertrophy, EF 50-55%, normal right ventricular size, moderately abnormal right heart pressure, increased pulmonary artery systemic pressure, and no significant valvular dysfunction. Her last echocardiogram was on 06/22/2019. Overall left ventricular systolic function was normal with an ejection fraction of 60 to 65%. Diastolic function was indeterminate. There was no evidence of pulmonary hypertension or significant valvular dysfunction. 1. Home CHF meds continued (Metoprolol, Lisinopril, Lasix, Spironolactone) 2. Daily weights (118kg today 06/10) 3. Sodium restricted diet-may need education as she reports snacking at home throughout the day due to boredom and depression 4. 2L fluid restriction/daily 5. May benefit from referral to outpatient CHF education program for further education-will discuss with patient to gauge her interest, given this admission and recent visit to ED for dyspnea as well as her reports of poor outpatient co mpliance with fluid restriction 6. Follow up PCP (2) Acute on chronic respiratory failure with hypoxia Impression: Suspect patient's CHF exacerbation to be the likely cause. She reports improved SOB with diuresis but continues to require 4L NC for sat 94% today. Baseline COPD, given Solu-Medrol in ED. Continues to report SOB with exertion (ambulation to the bathroom). 1. Lasix 40 mg IV BID 2. Supplemental oxygen, wean to baseline 2L NC when able. 3. DuoNebs PRN 4. RT consult for ambulatory saturation evaluation (3) COPD (chronic obstructive pulmonary disease) Impression: Patient is on 2 L of oxygen via nasal cannula at baseline. Currently she is on 4 L with an oxygen saturation of 94%. Patient was given a dose of Solu-Medrol 125 mg IV in the ED and reports feeling less short of breath despite higher oxygen requirements. We will hold off on any further administration of Solu-Medrol. No wheezes noted on exam. DuoNeb has been ordered as needed. Will obtain ambulatory saturations today when able. Unclear how her saturations change when she is moving around at home, may be that she has a new baseline with higher oxygen requirements. 1. RT consult for ambulatory saturation evaluation 2. Follow up PCP Qualifiers: COPD type: unspecified COPD Qualified Code(s): J44.9 - Chronic obstructive pulmonary disease, unspecified (4) Coronary artery disease Impression: She underwent PCI with stent placed in April 2019. She is on Plavix, aspirin, atorvastatin and metoprolol XL, continued. Troponins negative x3. 1. Continue home medications. Qualifiers: Associated angina: without angina (5) Thi rash of groin Impression: Intertriginous candidal skin breakdown noted in abdominal skin folds. 1. Keep clean and dry 2. Nystatin powder daily (6) Leukocytosis Impression: Thought to be a stress response. WBC 16 on admission, down to 12 3/2 but back to 15 today. VSS. Afebrile, normotensive. Will continue to monitor but likely related to steroids and stress from CHF exacerbation. Will order a CXR for exam. 1. CXR 2. Daily CBC (7) Depression Impression: Reports she takes Sertraline at home, dose increased approximately 6 months ago by her PCP. Does not feel it has helped. Isolated home life, reports not having enough energy to reach out to family and therefore stays at home reading and snacking. Offered a mental health referral but declined and also declined resources from Social Work yesterday. Reports she just needs to walk around more and get out of the house. 1. Continue home dose Sertraline 2. Follow up PCP Qualifiers: Depression Type: unspecified Qualified Code(s): F32.9 - Major depressive disorder, single episode, unspecified (8) Hypokalemia Impression: K 3.3 today, will plan to replete. 1. Replete K 2. Check BMP tomorrow
--- NOTE | 2020-06-11 12:41 | PHARMACY PROGRESS NOTE ---
- Best Possible Medication History Admit Date and Time: 06/09/202055 Processed by: Pharmacy Medication History completed: Yes Patient Interview: Completed (Pt interviewed by Navya 06/11) Secondary Source(s): Insurance records As the person ultimately responsible for medication therapy, providers are able to order a medication from an existing home medication list in [facility] via the "Reconcile Routine" prior to Confirmation of that medication by presidential support specialist. Such practice is discouraged except when the physician, in their clinical judgment, deems that a medical need exists for a medication without regard to previous use.
[2020-06-11] MEDS: SODIUM CHLORIDE FLUSH 0.9% 10 ML SYRINGE IVP PRN ×2 (14:16→21:03)
[2020-06-11] MEDS: ACETAMINOPHEN 325 MG TABLET PO PRN ×2 (14:20→19:19)
[2020-06-11] MEDS ORDERED: POTASSIUM CHLORIDE 20 MEQ TABLET PO SCH (15:00)
--- NOTE | 2020-06-11 15:20 | XRAY Report ---
PROCEDURE: Chest 1 View X-Ray INDICATIONS: hypoxic, elev WBC TECHNIQUE: One view of the chest was acquired. COMPARISON: 06/09/2020 and 04/16/2020 FINDINGS: Surgical changes and devices: None. Lungs and pleura: Cannot exclude left pleural fluid. No pneumothorax. Increased opacity involving the retrocardiac left lung base. Mediastinum: Mediastinal contours appear normal. Heart size is normal. Bones and chest wall: No suspicious bony lesions. Overlying soft tissues appear unremarkable. IMPRESSION: Increasing consolidative opacity within the left lung base suggestive of mild to moderate pleural eff usion with adjacent atelectasis. Recommend clinical correlation to exclude underlying pneumonia. If t here is persistent clinical diagnostic uncertainty, recommend short interval follow-up chest radiogra phs after treatment for further assessment. Reviewed by: Gianni Laura MD on 06/11/2020 3:18 PM PST Approved by: Gianni Laura MD on 06/11/2020 3:18 PM PST Station ID: [id number]
[2020-06-11] MEDS: CEFEPIME 2 GM in SODIUM CHLORIDE 0.9% MINIBAG 100 ML IV SCH ×2 (16:37→21:07)
[2020-06-11] MEDS: NAPROXEN 250 MG TABLET PO PRN (16:38)
[2020-06-11] MEDS: ATORVASTATIN 40 MG TABLET PO SCH (21:02)
[2020-06-11] MEDS: guaiFENesin 600 MG TABLET PO SCH (21:03)
[2020-06-12] MEDS: SODIUM CHLORIDE FLUSH 0.9% 10 ML SYRINGE IVP SCH ×4 (00:50→23:46)
[2020-06-12 04:58] LABS: BASOPHILS # (AUTO) 0.1 10^3/uL (0.0-0.1); BASOPHILS % (AUTO) 0.9 %; EOSINOPHILS # (AUTO) 0.6 10^3/uL (0.0-0.7); EOSINOPHILS % (AUTO) 6.1 %; HCT - HEMATOCRIT 41.4 % (37.0-47.0); HGB - HEMOGLOBIN 12.8 g/dL (12.0-16.0); LYMPHOCYTES # (AUTO) 2.8 10^3/uL (1.5-3.5); LYMPHOCYTES % (AUTO) 27.1 %; MEAN CORPUSCULAR HEMOGLOBIN 26.9 pg (27.0-31.0); MEAN CORPUSCULAR HGB CONC 30.9 g/dL (32.0-36.0); MEAN PLATELET VOLUME 10.8 fL (7.9-10.8); MONOCYTES # (AUTO) 0.8 10^3/uL (0.0-1.0); MONOCYTES % (AUTO) 7.5 %; NEUTROPHILS # (AUTO) 5.9 10^3/uL (1.5-6.6); NEUTROPHILS % (AUTO) 57.9 %; PLT - PLATELET COUNT 348 10^3/uL (130-450); RED BLOOD COUNT 4.76 10^6/uL (4.20-5.40); RED CELL DISTRIBUTION WIDTH 14.1 % (12.0-15.0); WHITE BLOOD COUNT 10.2 x10^3/uL (4.8-10.8)
[2020-06-12 05:01] LABS: CALCIUM 8.3 mg/dL (8.5-10.3); CREATININE 0.9 mg/dL (0.4-1.0); POTASSIUM 3.4 mmol/L (3.5-5.0)
[2020-06-12] MEDS: CEFEPIME 2 GM in SODIUM CHLORIDE 0.9% MINIBAG 100 ML IV SCH ×3 (05:41→21:55)
[2020-06-12] MEDS: SODIUM CHLORIDE FLUSH 0.9% 10 ML SYRINGE IVP PRN ×3 (05:45→21:56)
[2020-06-12] MEDS: PANTOPRAZOLE 40 MG TABLET PO SCH (06:10)
[2020-06-12] MEDS: FUROSEMIDE 40 MG/4 ML VIAL IVP SCH ×2 (06:18→14:39)
[2020-06-12] MEDS: ASPIRIN EC 81 MG TABLET PO SCH (08:37)
[2020-06-12] MEDS: lisinopriL 5 MG TABLET PO SCH (08:37)
[2020-06-12] MEDS: METOPROLOL SUCCINATE 50 MG TABLET PO SCH (08:38)
[2020-06-12] MEDS: SERTRALINE 25 MG TABLET PO SCH (08:38)
[2020-06-12] MEDS: guaiFENesin 600 MG TABLET PO SCH ×2 (08:38→21:54)
[2020-06-12] MEDS: CLOPIDOGREL 75 MG TABLET PO SCH (08:38)
[2020-06-12] MEDS: SPIRONOLACTONE 25 MG TABLET PO SCH (08:38)
[2020-06-12] MEDS: POTASSIUM CHLORIDE 20 MEQ TABLET PO SCH (08:39)
[2020-06-12] MEDS: ENOXAPARIN 40 MG/0.4 ML SYRINGE SUBQ SCH (08:41)
[2020-06-12] MEDS: NYSTATIN POWDER 15 GM TOP SCH ×2 (10:05→21:54)
--- NOTE | 2020-06-12 10:06 | PROVIDER PROGRESS NOTE ---
Subjective - Prog Note Date Prog Note Date: 06/12/20 - Subjective Pt reports feeling: Improved (Pt feeling much better overall today, excited to shower. Slept well overnight and no shortness of breath when weaned to 3L NC. Denies fevers and chills.) Objective - Vital Signs/Intake & Output Reviewed Vital Signs: Yes Vital Signs: Vital Signs x48h Temp Pulse Pulse Resp BP BP Pulse Ox 06/12/20 08:03 36.3 C L 54 L 20 148/76 H 95 06/12/20 07:30 52 L 18 06/12/20 06:16 52 L 122/54 L 06/12/20 05:47 124/43 L 06/12/20 05:46 117/45 L 06/12/20 03:14 36.5 C 89 16 114/51 L 96 Intake & Output: Intake & Output 06/09/20 06/10/20 06/11/20 06/12/20 23:59 23:59 23:59 23:59 Intake Total 1601 1700 300 Output Total 1850 2175 600 Balance -249 -475 -300 - Objective General Appearance: positive: No acute distress Eyes Bilateral: positive: Normal inspection, PERRL ENT: positive: ENT inspection nml, No signs of dehydration Neck: positive: Nml inspection Respiratory: positive: Chest non-tender, No respiratory distress, Other (LLL occasional crackles) Cardiovascular: positive: Regular rate & rhythm, Bradycardia Peripheral Pulses: 2+ Radial (R), 2+ Radial (L) Abdomen: positive: Non-tender, No organomegaly, Nml bowel sounds, No distention Skin: positive: Color nml Extremities: positive: Non-tender, Full ROM, Nml appearance Neurologic/Psychiatric: positive: Oriented x3 - Lab Results Fish Bones: 06/12/20 04:16 06/12/20 04:16 Other Labs: Lab Results x24hrs 06/12/20 06/12/20 Range/Units 04:16 04:16 WBC 10.2 (4.8-10.8) x10^3/uL RBC 4.76 (4.20-5.40) 10^6/uL Hgb 12.8 (12.0-16.0) g/dL Hct 41.4 (37.0-47.0) % MCV 87.0 (81.0-99.0) fL MCH 26.9 L (27.0-31.0) pg MCHC 30.9 L (32.0-36.0) g/dL RDW 14.1 (12.0-15.0) % Plt Count 348 (130-450) 10^3/uL MPV 10.8 (7.9-10.8) fL Neut # (Auto) 5.9 (1.5-6.6) 10^3/uL Lymph # (Auto) 2.8 (1.5-3.5) 10^3/uL [place] # (Auto) 0.8 (0.0-1.0) 10^3/uL Eos # (Auto) 0.6 (0.0-0.7) 10^3/uL Baso # (Auto) 0.1 (0.0-0.1) 10^3/uL Absolute Nucleated RBC 0.00 x10^3/uL Nucleated RBC % 0.0 /100WBC Sodium 135 (135-145) mmol/L Potassium 3.4 L (3.5-5.0) mmol/L Chloride 97 L (101-111) mmol/L Carbon Dioxide 28 (21-32) mmol/L Anion Gap 10.0 (6-13) BUN 25 H (6-20) mg/dL Creatinine 0.9 (0.4-1.0) mg/dL Estimated GFR (MDRD) 62 L (>89) Glucose 131 H (70-100) mg/dL Calcium 8.3 L (8.5-10.3) mg/dL - Diagnostic Imaging Diagnostic Imaging Results: positive: Final report reviewed ABX Reporting Has patient been on IV antibiotics over the past 48 hours?: Yes Sepsis Event Note (H) - Evaluation Current Stage of Sepsis: Ruled out Assessment/Plan - Problem List (1) Hospital acquired PNA Impression: WBC on admission 16, decreased to 12 HD 2 but increased to 15 HD 3. CXR obtained and showed increasing consolidative opacity and pleural effusion of the left lower lobe concerning for pneumonia. She was afebrile and bradycardic, normotensive, however continued to require 4L NC to maintain her oxygen saturations. Started on Ceftriaxone with improvement overnight of WBC to 10 and weaned to 3L NC. She reports she is feeling much better today and has been able to sit up and walk to the bathroom for a shower. Anticipate discharge tomorrow on oral antibiotics, total 5 day course. 1. Continue Ceftriaxone, anticipate transition to oral tomorrow in preparation for possible discharge 2. Wean O2 as able (2) Acute on chronic diastolic (congestive) heart failure Impression: Patient's BNP on admission was 1500. Reports at home she sleeps with 2 pillows at baseline, not able to walk to her bathroom (approximately 15 steps) without getting short of breath. Recently seen in ED April 2020 for dyspnea. Chest x- ray this admission showed fluid overload and CHF exacerbation. 2D echocar diogram done 06/10, showed mild concentric left ventricle hypertrophy, EF 50-55%, normal right ventricular size, moderately abnormal right heart pressure, increased pulmonary artery systemic pressure, and no significant valvular dysfunction. Her last echocardiogram was on 06/22/2019. Overall left ventricular systolic function was normal with an ejection fraction of 60 to 65%. Diastolic function was indeterminate. There was no evidence of pulmonary hypertension or significant valvular dysfunction. 1. Home CHF meds continued (Metoprolol, Lisinopril, Lasix, Spironolactone) 2. Daily weights 3. Sodium restricted diet-may need education as she reports snacking at home throughout the day due to boredom and depression 4. 2L fluid restriction/daily 5. May benefit from referral to outpatient CHF education program for further education-will discuss with patient to gauge her interest, given this admission and recent visit to ED for dyspnea as well as her reports of poor outpatient compliance with fluid restriction 6. Follow up PCP (3) Acute on chronic respiratory failure with hypoxia Impression: Suspect patient's CHF exacerbation as well as new pneumonia to be the cause. X- ray yesterday showed small consolidation of the LLE, new pneumonia. She reports improved SOB with diuresis and has been able to wean to 3L NC and walk to the bathroom for a shower. Baseline COPD, given Solu-Medrol in ED. 1. Lasix 40 mg IV BID 2. Supplemental oxygen, wean to baseline 2L NC when able. 3. DuoNebs PRN 4. RT consult for ambulatory saturation evaluation (4) COPD (chronic obstructive pulmonary disease) Impression: Patient is on 2 L of oxygen via nasal cannula at baseline. Currently she is on 3 L with an oxygen saturation of 95%. Patient was given a dose of Solu-Medrol 125 mg IV in the ED and reports feeling less short of breath despite higher oxygen requirements. We will hold off on any further administration of Solu-Medrol. No wheezes noted on exam. DuoNeb has been ordered as needed. Will obtain ambulatory saturations today when able (unable to obtain yesterday as she felt worse in the afternoon and was diagnosed with a new pneumonia). Unclear how her saturations change when she is moving around at home, may be that she has a new baseline with higher oxygen requirements. 1. RT consult for ambulatory saturation evaluation 2. Follow up PCP Qualifiers: COPD type: unspecified COPD Qualified Code(s): J44.9 - Chronic obstructive pulmonary disease, unspecified (5) Coronary artery disease Impression: She underwent PCI with stent placed in April 2019. She is on Plavix, aspirin, atorvastatin and metoprolol XL, continued. Troponins negative x3. 1. Continue home medications. Qualifiers: Associated angina: without angina (6) Thi rash of groin Impression: Intertriginous candidal skin breakdown noted in abdominal skin folds. 1. Keep clean and dry 2. Nystatin powder daily (prescription sent in preparation for DC, likely tomorrow) (7) Leukocytosis Impression: Initially thought to be a stress response, however WBC remained elevated on HD 3. Today WBC is 10. CXR obtained, found to have a new pneumonia and started on antibiotics. VSS. Afebrile, normotensive. 1. Continue abx, total 5 day course 2. CBC daily (8) Depression Impression: Reports she takes Sertraline at home, dose increased approximately 6 months ago by her PCP. Does not feel it has helped. Isolated home life, reports not having enough energy to reach out to family and therefore stays at home reading and snacking. Offered a mental health referral but declined and also declined resources from Social Work. Reports she just needs to walk around more and get out of the house. 1. Continue home dose Sertraline 2. Follow up PCP Qualifiers: Depression Type: unspecified Qualified Code(s): F32.9 - Major depressive disorder, single episode, unspecified (9) Hypokalemia Impression: K 3.3 3/3, given 20meq yesterday. 3.4 today, 40meq scheduled for today. 1. Replete K 2. Check BMP tomorrow
[2020-06-12] MEDS: CHOLESTYRAMINE 4 GM PACKET PO SCH (14:57)
[2020-06-12] MEDS: NAPROXEN 250 MG TABLET PO PRN (16:29)
[2020-06-12] MEDS: ATORVASTATIN 40 MG TABLET PO SCH (21:54)
[2020-06-12] MEDS: ACETAMINOPHEN 325 MG TABLET PO PRN (22:38)
[2020-06-13 04:50] LABS: BASOPHILS # (AUTO) 0.1 10^3/uL (0.0-0.1); BASOPHILS % (AUTO) 0.8 %; EOSINOPHILS # (AUTO) 0.6 10^3/uL (0.0-0.7); EOSINOPHILS % (AUTO) 5.5 %; HCT - HEMATOCRIT 43.6 % (37.0-47.0); HGB - HEMOGLOBIN 13.3 g/dL (12.0-16.0); LYMPHOCYTES # (AUTO) 2.4 10^3/uL (1.5-3.5); LYMPHOCYTES % (AUTO) 20.5 %; MEAN CORPUSCULAR HEMOGLOBIN 26.7 pg (27.0-31.0); MEAN CORPUSCULAR HGB CONC 30.5 g/dL (32.0-36.0); MEAN CORPUSCULAR VOLUME 87.4 fL (81.0-99.0); MEAN PLATELET VOLUME 10.7 fL (7.9-10.8); MONOCYTES # (AUTO) 0.9 10^3/uL (0.0-1.0); MONOCYTES % (AUTO) 7.5 %; NEUTROPHILS # (AUTO) 7.6 10^3/uL (1.5-6.6); NEUTROPHILS % (AUTO) 65.3 %; PLT - PLATELET COUNT 377 10^3/uL (130-450); RED BLOOD COUNT 4.99 10^6/uL (4.20-5.40); RED CELL DISTRIBUTION WIDTH 14.1 % (12.0-15.0); WHITE BLOOD COUNT 11.7 x10^3/uL (4.8-10.8)
[2020-06-13 05:00] LABS: CALCIUM 8.7 mg/dL (8.5-10.3); POTASSIUM 3.7 mmol/L (3.5-5.0)
[2020-06-13] MEDS: SODIUM CHLORIDE FLUSH 0.9% 10 ML SYRINGE IVP PRN ×2 (06:01→06:43)
[2020-06-13] MEDS: CEFEPIME 2 GM in SODIUM CHLORIDE 0.9% MINIBAG 100 ML IV SCH (06:01)
[2020-06-13] MEDS: FUROSEMIDE 40 MG/4 ML VIAL IVP SCH (06:01)
[2020-06-13] MEDS: PANTOPRAZOLE 40 MG TABLET PO SCH (06:11)
[2020-06-13] MEDS: POTASSIUM CHLORIDE 20 MEQ TABLET PO SCH (08:41)
[2020-06-13] MEDS: ASPIRIN EC 81 MG TABLET PO SCH (08:42)
[2020-06-13] MEDS: CLOPIDOGREL 75 MG TABLET PO SCH (08:42)
[2020-06-13] MEDS: guaiFENesin 600 MG TABLET PO SCH (08:42)
[2020-06-13] MEDS: SERTRALINE 25 MG TABLET PO SCH (08:42)
[2020-06-13] MEDS: METOPROLOL SUCCINATE 50 MG TABLET PO SCH (08:42)
[2020-06-13] MEDS: SPIRONOLACTONE 25 MG TABLET PO SCH (08:42)
[2020-06-13] MEDS: lisinopriL 5 MG TABLET PO SCH (08:43)
[2020-06-13] MEDS: ENOXAPARIN 40 MG/0.4 ML SYRINGE SUBQ SCH (08:43)
[2020-06-13] MEDS: SODIUM CHLORIDE FLUSH 0.9% 10 ML SYRINGE IVP SCH (08:52)
[2020-06-13] MEDS: NYSTATIN POWDER 15 GM TOP SCH (10:46)
[2020-06-13] MEDS: CHOLESTYRAMINE 4 GM PACKET PO SCH (10:46)
--- NOTE | 2020-06-13 11:40 | Discharge Plan ---
Discharge Plan Problem Reviewed?: Yes Disposition: Home, Self Care Condition: Good Prescriptions: Cefdinir 300 mg PO BID #10 mg Nystatin Cream [Mycostatin Cream] 1 gm TOP BID #45 gr Cholestyramine [Questran] 4 gm PO DAILY #30 packet Diet: Low Sodium Activity Restrictions: Activity as Tolerated Shower Restrictions: No Driving Restrictions: No Health Concerns: You have a history of emphysema, congestive heart failure, and coronary artery disease and you came to the hospital because you are having progressive sensation of shortness of breath with exertion. It gotten to the point that you were short of breath just at rest. You already take 2 L of oxygen at home and had increased your oxygen to the point that you were on 5 L to try make yourself feel better but was still feeling miserable. After evaluation we found you to have acute worsening of your chronic congestive heart failure. You have gained 20 pounds since June 2019. We started giving you medicines to make you urinate to get rid of the excess fluid and to reduce the work your heart muscle had to do. That was working for a couple of days and then you started feeling worse. You were more exhausted, your white cell count was elevated, and when we reevaluated you, we found you to have a left lower lung pneumonia. We started you on antibiotics and you felt better again. In evaluating you, your ultrasound of your heart (an echocardiogram) shows that the muscle pump function is slightly worse than a year ago. A year ago you were 60 to 65% ejection. With this admission you were down to 50% ejection. It looks like you may have had a heart attack in the past because the muscle is asymmetrically affected. Only sections of the muscle are not working. Plan of Treatment: 1. You will go home and complete antibiotic therapy for the pneumonia with a medicine called cefdinir. 2. Take an [id number] probiotic to help with bowel health while you take the cefdinir. 1 tablet a day is enough. 3. Please try and reestablish yourself with the rehab department for lung and heart. You are losing ground with regards to your lung and heart health and this will help you regain the ground you have lost. 4. You tell me that diarrhea is a problem. That is one of the reasons you do not complete rehab. So I have started you on cholestyramine powder to absorb bile in your stool and take away diarrhea. That is once a day. 5. You have yeast infection underneath the folds of your breast and sometimes in the folds of her groin. You have asked for a nystatin prescription and that was called in. 6. We tested to see how much oxygen you need. At rest, sitting in your chair, you are saturating 90% on room air. When you try to get up and walk your saturations dropped to 87%. We gave you 1 L of oxygen and with rest and with walking your oxygen saturations stayed at 93%. So we are sending you home on 1 L of oxygen. You already have the prescription/tanks at home. 7. Please see your primary care provider, Hardik Palacios, in the next 1 to 2 weeks. He will need to check blood work such as a BMP, BNP, and possibly a r epeat chest x-ray. Care Goals: To be able to get out of the house and do some exercise, get some company so that you are not so depressed, and follows through with cardiac and pulmonary rehab. Assessment: Patient understands care goals and will try and follow through. [facility] Care: [facility], [facility] No Smoking: If you smoke, Please STOP! Call for help. Follow-up with: Hardik Palacios MD [Primary Care Provider] -
--- NOTE | 2020-06-13 12:02 | DISCHARGE SUMMARY ---
"Discharge Summary Admit Date: 06/09/20 Discharge Date: 06/13/20 Discharging Provider: Rakel Garcia Primary Care Provider: Hardik Palacios Code Status: Attempt Resuscitation Condition at Discharge: Good Discharge Disposition: 01 Home, Self Care - DIAGNOSES Discharge Diagnoses with Status of Each Condition: (1) Hospital acquired PNA Impression: Improved. WBC on admission 16, decreased to 12 HD 2 but increased to 15 HD 3. CXR obtained and showed increasing consolidative opacity and pleural effusion of the left lower lobe concerning for pneumonia. She was afebrile and bradycardic, normotensive, however continued to require 4L NC to maintain her oxygen saturations. Started on Ceftriaxone with improvement overnight of WBC to 10 and weaned to 3L NC. Today her WBC is 11 and she requires 1L NC. She was discharged to home with baseline O2 requirements and oral abx (total 5 day course) 1. Oral abx, 5 day course 2. Continue baseline O2 as needed (2) Acute on chronic diastolic (congestive) heart failure Impression: Resolved. Patient's BNP on admission was 1500. Reports at home she sleeps with 2 pillows at baseline, not able to walk to her bathroom (approximately 15 steps) without getting short of breath. Recently seen in ED April 2020 for dyspnea. Chest x-ray this admission showed fluid overload and CHF exacerbation. 2D echo cardiogram done 06/10, showed mild concentric left ventricle hypertrophy, EF 50- 55%, normal right ventricular size, moderately abnormal right heart pressure, increased pulmonary artery systemic pressure, and no significant valvular dysfunction. She was able to walk down the [place] with RT today with minimal dyspnea on exertion. Her last echocardiogram was on 06/22/2019. Overall left ventricular systolic function was normal with an ejection fraction of 60 to 65%. Diastolic function was indeterminate. There was no evidence of pulmonary hypertension or significant valvular dysfunction. We discussed her home diet and fluid restriction and ways to be more compliant, as she admits poor compliance with diet and fluids at home. She was educated on ways to improve her diet and reports she will throw out her high salt foods at home and try to be more compliant. 1. Home CHF meds continued (Metoprolol, Lisinopril, Lasix, Spironolactone) 2. Daily weights 3. Sodium restricted diet 4. 2L fluid restriction/daily 5. Follow up PCP (3) Acute on chronic respiratory failure with hypoxia Impression: Resolved. Suspect patient's CHF exacerbation as well as new pneumonia to be the cause. She has transitioned to 1-2L NC with adequate O2 sats, back to baseline. RT performed an O2 desat study, with the following results: O2 desat. study: RA rest-o2 sat = 90% HR 60 RA w/ambulation O2 sat=87% HR 89 1L rest O2 sat 93% HR 90 1L ambulation O2 sat 93% HR 102 1. Supplemental oxygen, as needed 2. DuoNebs PRN (4) COPD (chronic obstructive pulmonary disease) Impression: Stable. Patient is on 2 L of oxygen via nasal cannula at baseline. She has been able to wean to 1-2L NC. 1. Follow up PCP Qualifiers: COPD type: unspecified COPD Qualified Code(s): J44.9 - Chronic obstructive pulmonary disease, unspecified (5) Coronary artery disease Impression: Stable. She underwent PCI with stent placed in April 2019. She is on Plavix, aspirin, atorvastatin and metoprolol XL, continued. Troponins negative x3. 1. Continue home medications. Qualifiers: Associated angina: without angina (6) Thi rash of groin Impression: Stable. Intertriginous candidal skin breakdown noted in abdominal skin folds. 1. Keep clean and dry 2. Nystatin powder daily (7) Leukocytosis Impression: Improved. Initially attributed to stress dose steroids and HD 3 diagnosed with pneumonia. WBC stable downtrending, she will discharge with 5 day course of abx. VSS. Afebrile, normotensive. 1. Continue abx, total 5 day course (8) Depression Impression: Stable. Reports she takes Sertraline at home, dose increased approximately 6 months ago by her PCP. Does not feel it has helped. Isolated home life, reports not having enough energy to reach out to family and therefore stays at home reading and snacking. Offered a mental health referral but declined and also declined resources from Social Work. Reports she just needs to walk around more and get out of the house. 1. Continue home dose Sertraline 2. Follow up PCP Qualifiers: Depression Type: unspecified Qualified Code(s): F32.9 - Major depressive disorder, single episode, unspecified (9) Hypokalemia Impression: Resolved. K 3.7 today after 2 days of potassium supplementation, up from 3.3. - HPI History of Present Illness: admit HPI: Patient is a 70-year-old female with medical history significant for COPD, CHF, coronary artery disease who presented to the ED with dyspnea and hypoxia. Her symptoms have been going on for couple of weeks but got progressively worse over the past few days. She also had a nonproductive cough for the past week. She is unable to ambulate to the bathroom without having to stop a couple of times to catch her breath. As a result of this she called EMS today. She was noted to have an oxygen saturation in the 80s despite 2 L of oxygen and she was wheezing when EMS arrived. She was given a DuoNeb breathing treatment which improved her breathing. In the ED work-up included a chest x-ray which showed fluid overload. She also had a BNP of 1500. She was given Lasix 100 mg IV x1 in the ED. As a result of the above she was presented for admission. By the time of my evaluation the patient's wheezing had improved/resolved. She appeared to be breathing more comfortably. She was actively diuresing signif icantly. She denied chest pain, abdominal pain, nausea, vomiting, fever or chills. She expressed that she has been very depressed lately. Apparently she lives in a basement room/apartment with no outside windows. She spends most of the time in bed. Also the winter, rain, cold temperatures and the current pandemic further limits her ability to go anywhere. Her brother lives next door and [place] in a long time. She does not have a good reason why. - CONSULTS | PROCEDURES Consultations: RT, Echo Procedures: 06/10 Echo: conclusion: 1. Mild concentric left ventricular hypertrophy. 2. Overall left ventricular systolic function is lower limits of normal with an EF of 50-55%. Mid to distal anteroseptal, apical distal anterior wall s egment hypokinesis is noted. 3. The right ventricle size is normal. 4. Moderately abnormal right heart pressures. 5. RVSP at rest is 52mmHg. 6. As compared to the prior echo, the pulmonary arterial systolic pressure has increased. 7. No significant valvular dysfunction 06/13 O2 desat study: RA rest-o2 sat = 90% HR 60 RA w/ambulation O2 sat=87% HR 89 1L rest O2 sat 93% HR 90 1L ambulation O2 sat 93% HR 102 - HOSPITAL COURSE Hospital Course: Pt initially admitted with a CHF exacerbation with BNP 1500 and CXR showing fluid overload. She was given Solu-Medrol in the ED. On admission her WBC was 16, attributed to stress and the IV steroid. She also required 4L NC to maintain oxygen saturations. She was not able to walk to the bathroom without significant dyspnea on exertion. Over the next 3 days she gradually improved but continued to require 3-4L NC. On HD 4 she was eventually weaned back to her baseline of 2L NC. Her WBC on HD2 trended down to 12 from 16, however on HD 3 the WBC was noted to have elevated back to 15. A chest x-ray showed increasing consolidative opacity within the left lung base suggestive of pleural effusion and possible pneumonia. She was started on IV antibiotics with improvement in her oxygen requirements and decreased WBC. After RT performed an ambulatory sat test, she discharged home on HD 5 with oral abx (total 5 day course) and back to baseline oxygen requirements. O2 desat. study: RA rest-o2 sat = 90% HR 60 RA w/ambulation O2 sat=87% HR 89 1L rest O2 sat 93% HR 90 1L ambulation O2 sat 93% HR 102 - ALLERGIES Allergies/Adverse Reactions: Allergies Allergy/AdvReac Type Severity Reaction Status Date / Time Sulfa (Sulfonamide Allergy Hives Verified 06/09/20 19:43 Antibiotics) - MEDICATIONS Home Medications: Ambulatory Orders Medication Instructions Recorded Confirmed Aspirin [Aspirin EC] 81 mg PO DAILY 06/22/19 06/09/20 Atorvastatin Calcium 40 mg PO QPM 06/22/19 06/09/20 Clopidogrel Bisulfate [Clopidogrel] 75 mg PO DAILY 06/22/19 06/11/20 Metoprolol Succinate [Toprol Xl] 50 mg PO DAILY 06/22/19 06/11/20 Nitroglycerin 0.4 mg SL Q5M PRN 06/22/19 06/09/20 lisinopriL [Lisinopril] 10 mg PO DAILY 12/01/19 06/11/20 Albuterol 2.5 mg INH Q4H PRN #30 neb 04/16/20 06/09/20 Furosemide [Lasix] 20 mg PO BID 06/11/20 06/11/20 Grafton-3 Fatty Acids/Fish Oil 1 cap PO DAILY 06/11/20 06/11/20 [G[place]on-3 Fish Oil 1,000 mg Sfgl] Sertraline [Zoloft] 50 mg PO DAILY 06/11/20 06/11/20 Spironolactone [Aldactone] 25 mg PO DAILY 06/11/20 06/11/20 Cefdinir 300 mg PO BID #10 mg 06/12/20 Cholestyramine [Questran] 4 gm PO DAILY #30 packet 06/12/20 Nystatin Cream [Mycostatin Cream] 1 gm TOP BID #45 gr 06/12/20 - PHYSICAL EXAM AT DISCHARGE General Appearance: positive: No acute distress, Alert Eyes Bilateral: positive: Normal inspection, PERRL ENT: positive: ENT inspection nml, No signs of dehydration Neck: positive: Nml inspection Respiratory: positive: Chest non-tender, No respiratory distress, Breath sounds nml Cardiovascular: positive: Regular rate & rhythm, No murmur, No gallop Abdomen: positive: Non-tender, No organomegaly, Nml bowel sounds, No distention Back: positive: Nml inspection Skin: positive: Color nml Extremities: positive: Non-tender, Full ROM, Nml appearance Neurologic/Psychiatric: positive: Oriented x3 - LABS Result Diagrams: 06/13/20 04:10 06/13/20 04:10 - DIAGNOSTIC IMAGING Diagnostic Imaging Results: Final report reviewed Diagnostic Imaging Results Comments: 06/09 CXR Impression: congestive heart failure exacerbation 06/11 CXR Impression: increasing consolidative opacity within the left lung base suggestive of mild to moderate pleural effusion with adjacent atelectasis. - SEPSIS Current Stage of Sepsis: Ruled out - TIME SPENT Time Spent in Discharge (Minutes): 35"
[2020-06-13 12:28] VITALS: BP 122/65
== END 2020-06-13 13:15 | disposition home or self-care (01) | DRG 291 ==
LOC: EDUNIT# → ED 19:27 → MS2 20:56
PROVIDERS: ADMIT Internal Medicine; ATTEND Specialist
DX: I50.33 Acute on chronic diastolic (congestive) heart failure (principal); J96.21 Acute and chronic respiratory failure with hypoxia; Z20.822 Contact with and (suspected) exposure to COVID-19; I25.2 Old myocardial infarction; J18.9 Pneumonia, unspecified organism; Z87.891 Personal history of nicotine dependence; R06.03 Acute respiratory distress; J43.9 Emphysema, unspecified; I25.10 Atherosclerotic heart disease of native coronary artery without angina pectoris; B37.2 Candidiasis of skin and nail; F32.9 Major depressive disorder, single episode, unspecified; Z79.899 Other long term (current) drug therapy; E87.6 Hypokalemia; Z79.82 Long term (current) use of aspirin; Z95.5 Presence of coronary angioplasty implant and graft; R19.7 Diarrhea, unspecified; Z99.81 Dependence on supplemental oxygen; Z79.02 Long term (current) use of antithrombotics/antiplatelets
CPT/HCPCS: 36415; 71045; 80048; 80053; 82803; 83880; 84484; 85025; 87040; 87631; 93005; 93306; 94640; 94761; 96374; 96375; 99285; A9270; J1650; J1940; 0202U

== ENCOUNTER 2020-09-15 20:01 | Inpatient (IN) | payer MEDICARE ==
[2020-09-15] MEDS ORDERED: IPRATROPIUM/ALBUTEROL 3 ML NEB INH STA (20:24)
[2020-09-15 20:37] LABS: BASOPHILS # (AUTO) 0.1 10^3/uL (0.0-0.1); BASOPHILS % (AUTO) 0.7 %; EOSINOPHILS # (AUTO) 0.4 10^3/uL (0.0-0.7); EOSINOPHILS % (AUTO) 2.7 %; HCT - HEMATOCRIT 45.5 % (37.0-47.0); HGB - HEMOGLOBIN 14.5 g/dL (12.0-16.0); LYMPHOCYTES # (AUTO) 2.6 10^3/uL (1.5-3.5); LYMPHOCYTES % (AUTO) 17.5 %; MEAN CORPUSCULAR HEMOGLOBIN 27.6 pg (27.0-31.0); MEAN CORPUSCULAR HGB CONC 31.9 g/dL (32.0-36.0); MEAN CORPUSCULAR VOLUME 86.5 fL (81.0-99.0); MEAN PLATELET VOLUME 10.3 fL (7.9-10.8); MONOCYTES # (AUTO) 0.9 10^3/uL (0.0-1.0); MONOCYTES % (AUTO) 6.2 %; NEUTROPHILS # (AUTO) 10.7 10^3/uL (1.5-6.6); NEUTROPHILS % (AUTO) 72.6 %; PLT - PLATELET COUNT 444 10^3/uL (130-450); RED BLOOD COUNT 5.26 10^6/uL (4.20-5.40); RED CELL DISTRIBUTION WIDTH 14.5 % (12.0-15.0); WHITE BLOOD COUNT 14.7 x10^3/uL (4.8-10.8)
[2020-09-15 20:44] LABS: VBG HCO3 24.4 mmol/L (23-28); VBG PCO2 40.4 mmHg (41-51); VBG PH 7.398 (7.31-7.41)
[2020-09-15 20:45] LABS: VBG BASE EXCESS -0.4 mmol/L (-2 - +2); VBG OXYGEN SATURATION 88.7 % (60-80); VBG TOTAL CO2 25.6 mmol/L (24-29)
[2020-09-15 20:53] LABS: ALBUMIN 3.5 g/dL (3.2-5.5); ALBUMIN/GLOBULIN RATIO 0.9 (1.0-2.2); BILIRUBIN,TOTAL 0.6 mg/dL (0.2-1.0); CALCIUM 8.8 mg/dL (8.5-10.3); CREATININE 0.9 mg/dL (0.4-1.0); POTASSIUM 3.9 mmol/L (3.5-5.0); TOTAL PROTEIN 7.2 g/dL (6.7-8.2)
--- NOTE | 2020-09-15 21:10 | ED Physician Documentation ---
History of Present Illness - Stated complaint Stated Complaint: SOA, - Chief complaint Chief Complaint: Resp - History obtained from History obtained from: Patient - Additonal information Additional information: 70-year-old woman with past medical history of COPD, CHF, coronary artery disease status post MD, presents with shortness of breath progressive over the past week, worse with exertion, associated with increased leg swelling. Patient states she has been compliant with her medications and takes Lasix twice daily. Also with some mild wheezing. Denies fevers at home. Chronic cough, nonwo rsening. Denies hemoptysis or pleuritic chest pain. Patient was admitted here in june for similar and states "it's worse this time". Review of Systems Ten Systems: 10 systems reviewed and negative Constitutional: reports: Fatigue. denies: Fever, Chills Cardiac: denies: Chest pain / pressure Respiratory: reports: Dyspnea, Cough, Wheezing GI: denies: Abdominal Pain, Nausea PD PAST MEDICAL HISTORY - Past Medical History Cardiovascular: Congestive heart failure, MD Respiratory: COPD Neuro: None Endocrine/Autoimmune: None GI: None FLAGSTONE LAYER: None : None HEENT: None Psych: Depression, Anxiety Musculoskeletal: None Derm: None - Past Surgical History Past Surgical History: Yes General: Cholecystectomy, Appendectomy Cardiovascular: Coronary stent - Present Medications Home Medications: Ambulatory Orders Medication Instructions Recorded Confirmed Aspirin [Aspirin EC] 81 mg PO DAILY 06/22/19 09/15/20 Atorvastatin Calcium 40 mg PO QPM 06/22/19 09/15/20 Clopidogrel Bisulfate [Clopidogrel] 75 mg PO DAILY 06/22/19 09/15/20 Metoprolol Succinate [Toprol Xl] 50 mg PO DAILY 06/22/19 09/15/20 Nitroglycerin 0.4 mg SL Q5M PRN 06/22/19 09/15/20 lisinopriL [Lisinopril] 10 mg PO DAILY 12/01/19 09/15/20 Albuterol 2.5 mg INH Q4H PRN #30 neb 04/16/20 09/15/20 Furosemide [Lasix] 20 mg PO BID 06/11/20 09/15/20 Sertraline [Zoloft] 50 mg PO DAILY 06/11/20 09/15/20 Spironolactone [Aldactone] 25 mg PO DAILY 06/11/20 09/15/20 Nystatin Cream [Mycostatin Cream] 1 gm TOP BID #45 gr 06/12/20 09/15/20 - Allergies Allergies/Adverse Reactions: Allergies Allergy/AdvReac Type Severity Reaction Status Date / Time Sulfa (Sulfonamide Allergy Hives Verified 09/15/20 20:04 Antibiotics) - Social History Does the pt smoke?: No Smoking Status: Never smoker Does the pt drink ETOH?: No Does the pt have substance abuse?: No - Immunizations Immunizations are current?: Yes - POLST Patient has POLST: No POLST Status: Full Code PD ED PE NORMAL - Vitals Vital signs reviewed: Yes - General General: Alert and oriented X 3, No acute distress, Well developed/nourished, Other (dyspneic with movement and ambulation) - HEENT HEENT: Atraumatic, PERRL, EOMI - Neck Neck: Supple, no meningeal sign - Cardiac Cardiac: RRR - Respiratory Respiratory: Other (BL diffuse crackles, end expiratory wheezing) - Abdomen Abdomen: Non tender, Non distended - Derm Derm: Normal color, Warm and dry - Extremities Extremities: Other (2+ BL LE edema) - Neuro Neuro: Alert and oriented X 3 - Psych Psych: Normal mood, Normal affect Results - Vitals Vitals: Vital Signs - 24 hr 09/15/20 09/15/20 09/15/20 20:04 20:25 20:34 Temperature 36.5 C Heart Rate 60 54 L Respiratory 16 12 Rate Blood Pressure 151/82 H O2 Saturation 90 L 96 09/15/20 09/15/20 09/15/20 21:30 22:48 22:50 Temperature Heart Rate 56 L 95 Respiratory 15 37 H Rate Blood Pressure 125/64 O2 Saturation 94 89 L 84 L 09/15/20 23:00 Temperature Heart Rate 54 L Respiratory 18 Rate Blood Pressure 125/99 H O2 Saturation 92 Oxygen O2 Source Nasal cannula Oxygen Flow Rate 2 - EKG (time done) 2036 Rate: Rate (enter#) (55) Rhythm: Sinus bradycardia Compare to prior EKG: Unchanged from prior EKG (06/09/20 old anterior and inferior ischemia) - Labs Labs: Laboratory Tests 09/15/20 09/15/20 09/15/20 20:31 20:31 20:31 WBC 14.7 H RBC 5.26 Hgb 14.5 Hct 45.5 MCV 86.5 MCH 27.6 MCHC 31.9 L RDW 14.5 Plt Count 444 MPV 10.3 Neut # (Auto) 10.7 H Lymph # (Auto) 2.6 Sawyer # (Auto) 0.9 Eos # (Auto) 0.4 Baso # (Auto) 0.1 Absolute Nucleated RBC 0.00 Nucleated RBC % 0.0 VBG pH VBG pCO2 VBG pO2 VBG HCO3 VBG Total CO2 VBG O2 Saturation VBG Base Excess Sodium 140 Potassium 3.9 Chloride 101 Carbon Dioxide 29 Anion Gap 10.0 BUN 13 Creatinine 0.9 Estimated GFR (MDRD) 62 L Glucose 125 H Calcium 8.8 Total Bilirubin 0.6 AST 17 ALT 18 Alkaline Phosphatase 113 Troponin I High Sens 12.9 B-Natriuretic Peptide Total Protein 7.2 Albumin 3.5 Globulin 3.7 Albumin/Globulin Ratio 0.9 L Lipase 22 09/15/20 09/15/20 20:31 20:31 WBC RBC Hgb Hct MCV MCH MCHC RDW Plt Count MPV Neut # (Auto) Lymph # (Auto) Sawyer # (Auto) Eos # (Auto) Baso # (Auto) Absolute Nucleated RBC Nucleated RBC % VBG pH 7.398 VBG pCO2 40.4 L VBG pO2 51.0 H VBG HCO3 24.4 VBG Total CO2 25.6 VBG O2 Saturation 88.7 H VBG Base Excess -0.4 Sodium Potassium Chloride Carbon Dioxide Anion Gap BUN Creatinine Estimated GFR (MDRD) Glucose Calcium Total Bilirubin AST ALT Alkaline Phosphatase Troponin I High Sens B-Natriuretic Peptide 1149 H Total Protein Albumin Globulin Albumin/Globulin Ratio Lipase PD MEDICAL DECISION MAKING - ED course ED course: Patient with moderate CHF exacerbation, failed a road test when we ambulated her with pulse oximeter. She dropped to the low 80s while ambulating and became tachypneic upon return to her stretcher with respiratory rate in the 40s per nursing. Discussed with Dr. Akers for admission. Departure - Departure Disposition: 66 [facility] DC/Xfer Clinical Impression: CHF exacerbation, Shortness of breath, Leukocytosis
[2020-09-15] MEDS ORDERED: FUROSEMIDE 40 MG/4 ML VIAL IVP STA (21:45)
[2020-09-16] MEDS ORDERED: SODIUM CHLORIDE FLUSH 0.9% 10 ML SYRINGE IVP PRN (00:03)
[2020-09-16] MEDS ORDERED: ACETAMINOPHEN 325 MG TABLET PO PRN (00:03)
[2020-09-16] MEDS ORDERED: IPRATROPIUM/ALBUTEROL 3 ML NEB INH PRN (00:11)
--- OUTSIDE RECORDS SUMMARY | 2020-09-16 00:11 | EXTERNAL MEDICAL SUMMARY RPT | Continuity of Care Document ---
:1950 Demographics Phone Unavailable Preferred Language Unknown Marital Status Unknown Oriental Orthodox Affiliation Unknown Race Unknown Ethnic Group Unknown Author Organization [facility] Address [address] [id number] Phone Care Team Providers Name Role Phone Devang Unavailable Unavailable Allergies Encounters Medications Problems date description facility [id number] No current problems or disability - unk nown All Results test status date ordered by attending specimen narendra e urea_nitrogen_blood unknown 20200915 unknown unknown unk nown Erythrocytes_volume_in unknown 20200915 unknown unknown unknown _Blood_by_Automated_cou nt Erythrocyte_distributi unknown [id number] unknown unknown unknown on_width_Ratio_by_Autom ated_count MCV_Entitic_volume_by_ unknown [id number] unknown unknown unknown Automated_count MCH_Entitic_mass_by_Au unknown 14754094 unknown unknown unknown tomated_count Platelets_volume_in_Bl unknown 67672986 unknown unknown unknown ood_by_Automated_count Platelet_mean_volume_E unknown 01900853 unknown unknown unknown ntitic_volume_in_Blood_ by_Re[place] neutrophil_count_blood unknown 38083706 unknown unknown unknown monocyte_count_blood unknown 34169456 unknown unknown un known lymphocyte_count_blood unknown 02023536 unknown unknown unknown Hemoglobin_Mass_volume unknown 11439522 unknown unknown unknown _in_Blood eosinophil_count_blood unknown 27307705 unknown unknown unknown Basophils_volume_in_Bl unknown 59729038 unknown unknown unknown ood_by_Manual_count leukocyte_count_blood unknown 47182252 unknown unknown u nknown erythrocyte_RBC_count unknown 29251719 unknown unknown u nknown Leukocytes_volume_in_B unknown 84550614 unknown unknown unknown lood_by_Automated_count Glomerular_Filtration_ unknown 43304377 unknown unknown unknown rate platelet_count unknown 73272068 unknown unknown unknown hemoglobin_blood unknown 78687419 unknown unknown unknow n hematocrit_blood unknown 21289036 unknown unknown unknow n potassium_blood unknown 06219076 unknown unknown unknown Glomerular_filtration_r unknown 76447616 unknown unknown unknown ate_1.73_sq_M.predicted _among_non-blacks_Volum e_Rate_Area_in_Serum_Pl asma_or_Blood_by_Creati nine-based_formula_MDRD _ Hematocrit_Volume_Frac unknown 32295631 unknown unknown unknown tion_of_Blood_by_Automa ted_count bilirubin_serum_total unknown 53554053 unknown unknown u nknown alanine_aminotransfera unknown 46685921 unknown unknown unknown se_SGPT_serum carbon_dioxide_serum_t unknown 59898223 unknown unknown unknown otal aspartate_aminotransfe unknown 41619476 unknown unknown unknown rase_SGOT_serum protein_total_serum unknown 58284691 unknown unknown unk nown blood_glucose unknown 90761179 unknown unknown unknown potassium_blood unknown 58725909 unknown unknown unknown mean_corpuscular_volum unknown 05474366 unknown unknown unknown e_RBC Urea_nitrogen_Mass_vol unknown 41997823 unknown unknown unknown ume_in_Serum_or_Plasma globulin_serum unknown 77048032 unknown unknown unknown alkaline_phosphatase_s unknown 27141127 unknown unknown unknown latosha Sodium_Moles_volume_in unknown 32122826 unknown unknown unknown _Serum_or_Plasma Protein_Mass_volume_in unknown 40504059 unknown unknown unknown _Serum_or_Plasma eosinophil_count_blood unknown 66933097 unknown unknown unknown anion_gap_serum unknown 91321398 unknown unknown unknown mean_platelet_volume unknown 10350394 unknown unknown un known basophil_count_blood unknown 31586475 unknown unknown un known monocyte_count_blood unknown 10452523 unknown unknown un known lymphocyte_count_blood unknown 98447257 unknown unknown unknown neutrophil_count_blood unknown 58107963 unknown unknown unknown B-type_natriuretic_pep unknown 97052805 unknown unknown unknown tide_brain_natriuretic_ peptide_ Glucose_Mass_volume_in unknown 70104416 unknown unknown unknown _Serum_or_Plasma Globulin_Mass_volume_i unknown 73081079 unknown unknown unknown n_Serum Creatinine_Mass_volume unknown 40925945 unknown unknown unknown _in_Serum_or_Plasma Chloride_Moles_volume_ unknown 04530864 unknown unknown unknown in_Serum_or_Plasma carbon_dioxide_serum_t unknown 45005466 unknown unknown unknown otal Calcium_Moles_volume_i unknown 55380818 unknown unknown unknown n_Serum_or_Plasma albumin_serum unknown 88031245 unknown unknown unknown Bilirubin.total_Mass_v unknown 09781718 unknown unknown unknown olume_in_Serum_or_Plasm a Aspartate_aminotransfe unknown 21679244 unknown unknown unknown rase_Enzymatic_activity _volume_in_Serum_or_Pla sma Anion_gap_4_in_Serum_o unknown 60655640 unknown unknown unknown r_Plasma creatinine_serum unknown 48178878 unknown unknown unknow n Alkaline_phosphatase_E unknown 75936895 unknown unknown unknown nzymatic_activity_volum e_in_Blood Albumin_Globulin_Mass_ unknown 31419553 unknown unknown unknown Ratio_in_Serum_or_Plasm a Albumin_Mass_volume_in unknown 19209598 unknown unknown unknown _Serum_or_Plasma Alanine_aminotransfera unknown 84230985 unknown unknown unknown se_Enzymatic_activity_v olume_in_Serum_or_Plasm a mean_corpuscular_hemog unknown 56282751 unknown unknown unknown lobin_concentration_rbc sodium_serum unknown 28676003 unknown unknown unknown albumin_globulin_ratio unknown 81070931 unknown unknown unknown _serum chloride_serum unknown 43696131 unknown unknown unknown calcium_serum unknown 02449060 unknown unknown unknown mean_corpuscular_hemog unknown 17245297 unknown unknown unknown lobin_RBC red_blood_cell_distrib unknown 26320820 unknown unknown unknown ution_width T unknown 06164439 unknown unknown unknown T unknown 67378053 unknown unknown unknown T unknown 38568015 unknown unknown unknown T unknown 69743585 unknown unknown unknown T unknown 93962640 unknown unknown unknown T unknown 43882365 unknown unknown unknown NEUTROPHILS_AUTO_ unknown 28178401 unknown unknown unkno wn T unknown 87035614 unknown unknown unknown T unknown 00816373 unknown unknown unknown T unknown 15353538 unknown unknown unknown MONOCYTES_AUTO_ unknown 95464095 unknown unknown unknown T unknown 31036239 unknown unknown unknown T unknown 68036535 unknown unknown unknown T unknown 98802902 unknown unknown unknown T unknown 49285618 unknown unknown unknown LYMPHOCYTES_AUTO_ unknown 63140358 unknown unknown unkno wn T unknown 69584427 unknown unknown unknown T unknown 33685752 unknown unknown unknown T unknown 53119391 unknown unknown unknown T unknown 32623354 unknown unknown unknown T unknown 49879179 unknown unknown unknown T unknown 91894820 unknown unknown unknown T unknown 82797685 unknown unknown unknown GFR_-_MDRD unknown 90274817 unknown unknown unknown T unknown 20200915 unknown unknown unknown EOSINOPHILS_AUTO_ unknown 20200915 unknown unknown unkno wn T unknown 20200915 unknown unknown unknown T unknown 20200915 unknown unknown unknown T unknown 20200915 unknown unknown unknown T unknown 20200915 unknown unknown unknown T unknown 20200915 unknown unknown unknown T unknown 20200915 unknown unknown unknown T unknown 20200915 unknown unknown unknown BILIRUBIN_TOTAL unknown 20200915 unknown unknown unknown BASOPHILS_AUTO_ unknown 20200915 unknown unknown unknown T unknown 20200915 unknown unknown unknown T unknown 20200915 unknown unknown unknown T unknown 20200915 unknown unknown unknown T unknown 20200915 unknown unknown unknown ALT_ALANINE_AMINOTRANS unknown 20200915 unknown unknown unknown FERASE ALKALINE_PHOSPHATASE unknown 20200915 unknown unknown un known T unknown 20200915 unknown unknown unknown T unknown 20200915 unknown unknown unknown ALBUMIN_GLOBULIN_RATIO unknown 48899285 unknown unknown unknown facility observation status value reference units lab code abn ormal line range notes All urea_nitroge unknown 13 unknown mg/dL _9 unknown unknown n_blood All Erythrocytes unknown 5.26 unknown _789-8 unknown unknown _volume_in_Bl 10 6/UL ood_by_Automa ted_count All Erythrocyte_ unknown 14.5 unknown % _788-0 unknown unknown distribution_ width_Ratio_b y_Automated_c ount All MCV_Entitic_ unknown 86.5 unknown fL _787-2 unknown unknown volume_by_Aut omated_count All MCH_Entitic_ unknown 27.6 unknown pg _785-6 unknown unknown mass_by_Autom ated_count All Platelets_vo unknown 444 10 unknown _777-3 unknown unknown lume_in_Blood 3/UL _by_Automated _count All Platelet_mea unknown 10.3 unknown fL _776-5 unknown unknown n_volume_Enti tic_volume_in _Blood_by_Ree s-Alcon All neutrophil_c unknown 10.7 unknown _752-6 unknown unknown ount_blood 10 3/UL All monocyte_cou unknown 0.9 10 unknown _743-5 unknown unknown nt_blood 3/UL All lymphocyte_c unknown 2.6 10 unknown _732-8 unknown unknown ount_blood 3/UL All Hemoglobin_M unknown 14.5 unknown g/dL _718-7 unknown unknown ass_volume_in _Blood All eosinophil_c unknown 0.4 10 unknown _712-0 unknown unknown ount_blood 3/UL All Basophils_vo unknown 0.1 10 unknown _705-4 unknown unknown lume_in_Blood 3/UL _by_Manual_co unt All leukocyte_co unknown 14.7 unknown _68 unknown unknown unt_blood X10 3/UL All erythrocyte_ unknown 5.26 unknown _67 unknown unknown RBC_count 10 6/UL All Leukocytes_v unknown 14.7 unknown _6690-2 unknow n unknown olume_in_Bloo X10 d_by_Automate 3/UL d_count All Glomerular_F unknown 62 unknown mL/min _66455 unknown unknown iltration_rat e All platelet_cou unknown 444 10 unknown _66 unknown unknown nt 3/UL All hemoglobin_b unknown 14.5 unknown g/dL _65 unknown unknown lood All hematocrit_b unknown 45.5 unknown % _64 unknown unknown lood All potassium_bl unknown 3.9 unknown meq/L _6298-4 unknow n unknown ood All Glomerular_fi unknown 62 unknown mL/min _48642-3 unkno wn unknown ltration_rate _1.73_sq_M.pr edicted_among _non-blacks_V olume_Rate_Ar ea_in_Serum_P lasma_or_Bloo d_by_Creatini ne-based_form ula_MDRD_ All Hematocrit_V unknown 45.5 unknown % _4544-3 unknow n unknown olume_Fractio n_of_Blood_by _Automated_co unt All bilirubin_se unknown 0.6 unknown mg/dL _43 unknown unknown rum_total All alanine_amin unknown 18 unknown U/L _40 unknown unknown otransferase_ SGPT_serum All carbon_dioxi unknown 29 unknown mmol/L _3962 unknown unknown de_serum_tota l All aspartate_am unknown 17 unknown U/L _39 unknown unknown inotransferas e_SGOT_serum All protein_tota unknown 7.2 unknown g/dL _36 unknown unknown l_serum All blood_glucos unknown 125 unknown mg/dL _3565 unknown unknown e All potassium_bl unknown 3.9 unknown meq/L _3483 unknown unknown ood All mean_corpusc unknown 86.5 unknown fL _315 unknown unknown ular_volume_R BC All Urea_nitroge unknown 13 unknown mg/dL _3094-0 unknow n unknown n_Mass_volume _in_Serum_or_ Plasma All globulin_ser unknown 3.7 unknown _3059 unknown unknown um All alkaline_pho unknown 113 unknown U/L _3 unknown unknown sphatase_seru m All Sodium_Moles unknown 140 unknown mmol/L _2951-2 unknow n unknown _volume_in_Se rum_or_Plasma All Protein_Mass unknown 7.2 unknown g/dL _2885-2 unknow n unknown _volume_in_Se rum_or_Plasma All eosinophil_c unknown 0.4 10 unknown _285 unknown unknown ount_blood 3/UL All anion_gap_se unknown 10.0 unknown _279 unknown unknown rum All mean_platele unknown 10.3 unknown fL _2784 unknown unknown t_volume All basophil_cou unknown 0.1 10 unknown _2427 unknown unknown nt_blood 3/UL All monocyte_cou unknown 0.9 10 unknown _2422 unknown unknown nt_blood 3/UL All lymphocyte_c unknown 2.6 10 unknown _2420 unknown unknown ount_blood 3/UL All neutrophil_c unknown 10.7 unknown _2418 unknown unknown ount_blood 10 3/UL All B-type_natri unknown 1149 unknown pg/mL _23708 unknown unknown uretic_peptid e_brain_natri uretic_peptid e_ All Glucose_Mass unknown 125 unknown mg/dL _2345-7 unknow n unknown _volume_in_Se rum_or_Plasma All Globulin_Mas unknown 3.7 unknown _2336-6 unknow n unknown s_volume_in_S latosha All Creatinine_M unknown 0.9 unknown mg/dL _2160-0 unknow n unknown ass_volume_in _Serum_or_Pla sma All Chloride_Mol unknown 101 unknown mmol/L _2075-0 unknow n unknown es_volume_in_ Serum_or_Plas ma All carbon_dioxi unknown 29 unknown mmol/L _2028-9 unknow n unknown de_serum_tota l All Calcium_Mole unknown 8.8 unknown mg/dL _2000-8 unknow n unknown s_volume_in_S erum_or_Plasm a All albumin_seru unknown 3.5 unknown g/dL _2 unknown unknown m All Bilirubin.to unknown 0.6 unknown mg/dL _1975-2 unknow n unknown tal_Mass_volu me_in_Serum_o r_Plasma All Aspartate_am unknown 17 unknown U/L _1920-8 unknow n unknown inotransferas e_Enzymatic_a ctivity_volum e_in_Serum_or _Plasma All Anion_gap_4_ unknown 10.0 unknown _1863-0 unknow n unknown in_Serum_or_P lasma All creatinine_s unknown 0.9 unknown mg/dL _18 unknown unknown latosha All Alkaline_pho unknown 113 unknown U/L _1783-0 unknow n unknown sphatase_Enzy matic_activit y_volume_in_B lood All Albumin_Glob unknown 0.9 unknown _1759-0 unknow n unknown ulin_Mass_Rat io_in_Serum_o r_Plasma All Albumin_Mass unknown 3.5 unknown g/dL _1751-7 unknow n unknown _volume_in_Se rum_or_Plasma All Alanine_amin unknown 18 unknown U/L _1742-6 unknow n unknown otransferase_ Enzymatic_act ivity_volume_ in_Serum_or_P lasma All mean_corpusc unknown 31.9 unknown g/dL _17029 unknown unknown ular_hemoglob in_concentrat ion_rbc All sodium_serum unknown 140 unknown mmol/L _159 unknown unknown All albumin_glob unknown 0.9 unknown _146 unknown unknown ulin_ratio_se rum All chloride_ser unknown 101 unknown mmol/L _13 unknown unknown um All calcium_seru unknown 8.8 unknown mg/dL _11 unknown unknown m All mean_corpusc unknown 27.6 unknown pg _1031 unknown unknown ular_hemoglob in_RBC All red_blood_ce unknown 14.5 unknown % _1030 unknown unknown ll_distributi on_width All T unknown 14.7 unknown WBC unknown unkn own X10 3/UL All T unknown 0.6 unknown mg/dL TOTAL_BI unknown un known LI All T unknown 14.5 unknown % RDW unknown unkn own All T unknown 5.26 unknown RBC unknown unkn own 10 6/UL All T unknown 7.2 unknown g/dL PRO_TOTA unknown un known L All T unknown 444 10 unknown PLT unknown unkn own 3/UL All NEUTROPHILS_ unknown 10.7 unknown NE_ unknown unknown AUTO_ 10 3/UL All T unknown 10.7 unknown NEUT_AUT unknown un known 10 3/UL O_ All T unknown 140 unknown mmol/L NA unknown unkn own All T unknown 10.3 unknown fL MPV unknown unkn own All MONOCYTES_AU unknown 0.9 10 unknown MO_ unknown unknown TO_ 3/UL All T unknown 0.9 10 unknown MONO_AUT unknown un known 3/UL O_ All T unknown 86.5 unknown fL MCV unknown unkn own All T unknown 31.9 unknown g/dL MCHC unknown unkn own All T unknown 27.6 unknown pg MCH unknown unkn own All LYMPHOCYTES_ unknown 2.6 10 unknown LY_ unknown unknown AUTO_ 3/UL All T unknown 2.6 10 unknown LYMPH_AU unknown un known 3/UL TO_ All T unknown 3.9 unknown meq/L K unknown unkn own All T unknown 14.5 unknown g/dL HGB unknown unkn own All T unknown 45.5 unknown % HCT unknown unkn own All T unknown 125 unknown mg/dL GLU unknown unkn own All T unknown 3.7 unknown GLOB unknown unkn own All T unknown 62 unknown mL/min GFR_-_MD unknown un known RD All GFR_-_MDRD unknown 62 unknown mL/min GFR unknown unknown All T unknown 10.0 unknown GAP unknown unkn own All EOSINOPHILS_ unknown 0.4 10 unknown EO_ unknown unknown AUTO_ 3/UL All T unknown 0.4 10 unknown EOS_AUTO unknown un known 3/UL _ All T unknown 0.9 unknown mg/dL CREAT unknown unkn own All T unknown 29 unknown mmol/L CO2 unknown unkn own All T unknown 101 unknown mmol/L CL unknown unkn own All T unknown 8.8 unknown mg/dL CA unknown unkn own All T unknown 13 unknown mg/dL BUN unknown unkn own All T unknown 1149 unknown pg/mL BNP unknown unkn own All BILIRUBIN_TO unknown 0.6 unknown mg/dL BILIT unknown unknown GREGORIA All BASOPHILS_AU unknown 0.1 10 unknown BA_ unknown unknown TO_ 3/UL All T unknown 0.1 10 unknown BASO_AUT unknown un known 3/UL O_ All T unknown 0.9 unknown A_G_RATI unknown un known O All T unknown 17 unknown U/L AST unknown unkn own All T unknown 18 unknown U/L ALT_SGPT unknown un known _ All ALT_ALANINE_ unknown 18 unknown U/L ALT unknown unknown AMINOTRANSFER ASE All ALKALINE_PHO unknown 113 unknown U/L ALP unknown unknown SPHATASE All T unknown 113 unknown U/L ALK_PHOS unknown un known All T unknown 3.5 unknown g/dL ALB unknown unkn own All ALBUMIN_GLOB unknown 0.9 unknown AGRATIO unknow n unknown ULIN_RATIO
[2020-09-16] MEDS ORDERED: NITROGLYCERIN SL 0.4 MG TABLET SL PRN (00:19)
--- NOTE | 2020-09-16 00:27 | HISTORY & PHYSICAL EXAMINATION ---
Chief Complaint - Chief Complaint Chief Complaint: SOB History of Present Illness - Admitted From Admitted From:: ED - History Obtained From History obtained from: ED provider and patient - History of Present Illness HPI Comment/Other: This is a 70-year-old white female with history of obesity, COPD who recently quit smoking, history of diastolic heart failure, CAD with stenting done 1-1/2 years ago, hypertension and depression. Patient was admitted here in June (3 months ago) with CHF and COPD exacerbation, required several days for IV diuresis and IV steroids. During the last admission it she admitted that she was not compliant with a low-salt diet. She is on home oxygen at 2 L/min. The patient presented to the emergency room complaining of shortness of breath progressively worsening over the past 1 week for which her oxygen needs have been increasing and also worsening of leg swelling. She denies have a fever, cough or sputum production. Patient was noted to be wheezing in the ER and received a nebulizer. A chest x-ray showed CHF and BNP was 1100, and she received IV Lasix 80 mg and has started to have diuresis. While she was walking in the ED, she desaturated to 88% despite being on supplemental oxygen and is very tachypneic with minimal activity. The patient is being admitted to the Hospitalist service as inpatient status for acute on chronic respiratory failure with hypoxia from CHF exacerbation and COPD exacerbation. History - Past Medical History Cardiovascular: reports: Congestive heart failure, Coronary artery disease (Stents were placed in 2019), HI Respiratory: reports: COPD, Other (She is on home O2 set at 2 L/min continuous) Neuro: reports: None Endocrine/Autoimmune: reports: None GI: reports: None PROGRAMS MANAGER: reports: None : reports: None HEENT: reports: None Psych: reports: Depression, Anxiety Musculoskeletal: reports: None Derm: reports: None - Past Surgical History General: reports: Cholecystectomy, Appendectomy Cardiovascular: reports: Coronary stent - Family & Social History Family History: Mother: , Alzheimer's Disease, Father: , CAD Family History Comment/Other: She states her father from myocardial infarction in his early 50s. 3 of her brothers also have heart disease and have required CABGs. Living arrangement: At home Living Situation: Alone Social History Notes: She quit smoking back in April 2019. She has been smoking for about 50 years prior to this varying from half a pack to a pack a day. She reports no alcohol use. She lives alone and has been retired for 2 years. 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 She lives next door to her brother. - Substance History Use: Uses substance without health or social issues: NONE - POLST Patient has POLST: No POLST Status: Full Code Meds/Allgy - Home Medications Home Medications: Ambulatory Orders Medication Instructions Recorded Confirmed Aspirin [Aspirin EC] 81 mg PO DAILY 06/22/19 09/15/20 Atorvastatin Calcium 40 mg PO QPM 06/22/19 09/15/20 Clopidogrel Bisulfate [Clopidogrel] 75 mg PO DAILY 06/22/19 09/15/20 Metoprolol Succinate [Toprol Xl] 50 mg PO DAILY 06/22/19 09/15/20 Nitroglycerin 0.4 mg SL Q5M PRN 06/22/19 09/15/20 lisinopriL [Lisinopril] 10 mg PO DAILY 12/01/19 09/15/20 Albuterol 2.5 mg INH Q4H PRN #30 neb 04/16/20 09/15/20 Furosemide [Lasix] 20 mg PO BID 06/11/20 09/15/20 Sertraline [Zoloft] 50 mg PO DAILY 06/11/20 09/15/20 Spironolactone [Aldactone] 25 mg PO DAILY 06/11/20 09/15/20 Nystatin Cream [Mycostatin Cream] 1 gm TOP BID #45 gr 06/12/20 09/15/20 - Allergies Allergies/Adverse Reactions: Allergies Allergy/AdvReac Type Severity Reaction Status Date / Time Sulfa (Sulfonamide Allergy Hives Verified 09/15/20 20:04 Antibiotics) Review of Systems - Cardiovascular Cariovascular: reports: Edema - Respiratory Respiratory: reports: Wheezing, Orthopnea, SOB at rest, SOB with exertion - All Other Systems All Other Systems: reports: Reviewed and negative Exam - Vital Signs Vital Signs: Vital Signs x48h Temp Pulse Resp BP Pulse Ox 09/15/20 23:00 54 L 18 125/99 H 92 09/15/20 22:50 37 H 84 L 09/15/20 22:48 95 89 L 09/15/20 21:30 56 L 15 125/64 94 09/15/20 20:34 54 L 12 09/15/20 20:25 96 09/15/20 20:04 36.5 C 60 16 151/82 H 90 L - Physical Exam General Appearance: positive: No acute distress, Alert, Other (wearing O2 by n.c.) Eyes Bilateral: positive: Normal inspection, EOMI Neck: positive: Nml inspection (Obese and cannot eval for JVD) Respiratory: positive: Other (Poor air movement, prolonged expiratory phase, no wheezes, fine right basal crackles present) Cardiovascular: positive: Regular rate & rhythm, Other (distant heart sounds) Abdomen: positive: Non-tender, Other (Obese w/ pannus) Skin: positive: Other (redness in both groins) Extremities: positive: Non-tender, Other (2+ edema to mid-thighs) Neurologic/Psychiatric: positive: Oriented x3 (Non-focal) Conclusion/Plan - Problem List (1) Acute on chronic respiratory failure with hypoxia Conclusion/Plan: Continue with supplemental oxygen, target saturation is 88% or better. Will wean the oxygen as tolerated. We will treat the underlying problems of CHF and COPD exacerbations. (2) Acute on chronic diastolic (congestive) heart failure Conclusion/Plan: An Echo in 2019 showed EF of 55 to 60% with diastolic dysfunction. When she was here 3 months ago she had an Echo showing EF of 50% with diastolic dysfunctio. Is on spironolactone that time. It is unclear if she has had cardiology evaluation for the reason of the drop in LVEF after that last admission. Will cycle troponins x3. We will repeat an Echo (2D only to obtain LVEF and RVEF). We will treat with IV bid Lasix. Will order salt restriction diet and 2000 cc/day total fluid restriction. We will continue with her Spironolactone, beta-vinita and CAD treatment. Follow I's and O's, daily weights, BNP and magnesium and daily electrolytes. (3) COPD exacerbation Conclusion/Plan: One area in her record states that her COPD is "severe". The Echo done 3 months ago shows she has pulmonary hypertension with PA pressure 52 mmHg. Will begin nebs 4 times daily and every 4 hours as needed, using both bronchodilators and inhaled steroids. We will start IV steroids with Solu-Medrol. Continue with supplemental oxygen. (4) Coronary artery disease Conclusion/Plan: She apparently had an HI in 2019. This is when she had stents placed. We will continue her Aspirin, beta-vinita, Plavix and statin. If a lipid panel was not done 3 months ago we will check her fasting lipids. (5) HTN (hypertension) Conclusion/Plan: Continue her home Lisinopril, spironolactone, beta-vinita, and Lasix (in IV form). (6) Morbid obesity with BMI of 45.0-49.9, adult Conclusion/Plan: As per Hx. Will treat groin rash with Nystatin powder. (7) Depression Conclusion/Plan: We will continue her home medication for treating. Qualifiers: - Lab Results Fish Bones: 09/15/20 20:31 09/15/20 20:31
[2020-09-16 00:58] LABS: B. PARAPERTUSSIS- RESP PCR PAN NOT DETECTED; B. PERTUSSIS- RESP PCR PANEL NOT DETECTED; C. PNEUMONIAE- RESP PCR PANEL NOT DETECTED; CORONAVIRUS 229E-RESP PCR NOT DETECTED; CORONAVIRUS HKU1-RESP PCR NOT DETECTED; CORONAVIRUS NL63-RESP PCR NOT DETECTED; CORONAVIRUS OC43-RESP PCR NOT DETECTED; HUMAN METAPNEUMOVIRUS NOT DETECTED; INFLUENZA A- RESP PCR PANEL NOT DETECTED; INFLUENZA B - RESP PCR PANEL NOT DETECTED; M. PNEUMONIAE- RESP PCR PANEL NOT DETECTED; PARAINFLUENZA VIRUS 1 NOT DETECTED; PARAINFLUENZA VIRUS 2 NOT DETECTED; PARAINFLUENZA VIRUS 3 NOT DETECTED; PARAINFLUENZA VIRUS 4 NOT DETECTED; RHINOVIRUS/ENTEROVIRUS NOT DETECTED; RSV- RESP PCR PANEL NOT DETECTED; SARS-CoV-2 -RESP PCR PANEL NOT DETECTED
[2020-09-16] MEDS: SODIUM CHLORIDE FLUSH 0.9% 10 ML SYRINGE IVP SCH ×3 (01:26→21:15)
[2020-09-16 05:33] LABS: BASOPHILS # (AUTO) 0.1 10^3/uL (0.0-0.1); BASOPHILS % (AUTO) 0.6 %; EOSINOPHILS # (AUTO) 0.4 10^3/uL (0.0-0.7); EOSINOPHILS % (AUTO) 2.9 %; HCT - HEMATOCRIT 46.5 % (37.0-47.0); HGB - HEMOGLOBIN 14.2 g/dL (12.0-16.0); LYMPHOCYTES # (AUTO) 2.3 10^3/uL (1.5-3.5); LYMPHOCYTES % (AUTO) 18.3 %; MEAN CORPUSCULAR HEMOGLOBIN 26.5 pg (27.0-31.0); MEAN CORPUSCULAR HGB CONC 30.5 g/dL (32.0-36.0); MEAN CORPUSCULAR VOLUME 86.9 fL (81.0-99.0); MEAN PLATELET VOLUME 10.4 fL (7.9-10.8); MONOCYTES # (AUTO) 0.8 10^3/uL (0.0-1.0); MONOCYTES % (AUTO) 6.1 %; NEUTROPHILS # (AUTO) 9.1 10^3/uL (1.5-6.6); NEUTROPHILS % (AUTO) 71.6 %; PLT - PLATELET COUNT 428 10^3/uL (130-450); RED BLOOD COUNT 5.35 10^6/uL (4.20-5.40); RED CELL DISTRIBUTION WIDTH 14.6 % (12.0-15.0); WHITE BLOOD COUNT 12.6 x10^3/uL (4.8-10.8)
[2020-09-16] MEDS ORDERED: methylPREDNISolone SUCCINATE 40 MG/ML VIAL IVP SCH (06:00)
[2020-09-16] MEDS: FUROSEMIDE 20 MG/2 ML VIAL IVP SCH ×2 (06:03→13:24)
[2020-09-16 06:04] LABS: BUN - BLOOD UREA NITROGEN 16 mg/dL (6-20); CALCIUM 8.7 mg/dL (8.5-10.3); CARBON DIOXIDE - CO2 30 mmol/L (21-32); CHLORIDE 97 mmol/L (101-111); CHOL/HDL RATIO 4.9 (<4.4); CHOLESTEROL 148 mg/dL; CREATININE 0.8 mg/dL (0.4-1.0); GFR - MDRD 71 (>89); GLUCOSE 145 mg/dL (70-100); HDL CHOLESTEROL 30 mg/dL; LDL CHOLESTEROL,CALCULATED 86 mg/dL; LDL/HDL RATIO 2.9 (<4.4); MAGNESIUM 2.2 mg/dL (1.7-2.8); POTASSIUM 3.5 mmol/L (3.5-5.0); SODIUM 139 mmol/L (135-145); TRIGLYCERIDES 160 mg/dL; VLDL CHOLESTEROL 32 mg/dL
--- NOTE | 2020-09-16 07:25 | XRAY Report ---
PROCEDURE: Chest 1 View X-Ray INDICATIONS: SOA X 1 week TECHNIQUE: One view of the chest was acquired. COMPARISON: 06/11/2020 and multiple prior chest radiographs. FINDINGS: Surgical changes and devices: None. Lungs and pleura: No pleural effusions or pneumothorax. No acute airspace opacity. Increased reticul ar markings bilaterally, present on prior studies and not significantly changed. Mediastinum: Mediastinal contours appear normal. Heart size is normal. Bones and chest wall: No suspicious bony lesions. Overlying soft tissues appear unremarkable. IMPRESSION: No acute cardiopulmonary process demonstrated radiographically. Prominent bilateral reticular marking s which are chronic and and appears similar to prior studies are likely reflective of fibrotic change . Reviewed by: Santana Hughes MD on 09/16/2020 7:24 AM PDT Approved by: Santana Hughes MD on 09/16/2020 7:24 AM PDT Station ID: [id number]
[2020-09-16] MEDS: IPRATROPIUM/ALBUTEROL 3 ML NEB INH SCH ×4 (08:00→20:25)
[2020-09-16] MEDS: BUDESONIDE 0.5 MG/2 ML NEB INH SCH ×2 (08:00→20:25)
[2020-09-16] MEDS: ASPIRIN EC 81 MG TABLET PO SCH (08:40)
[2020-09-16] MEDS: CLOPIDOGREL 75 MG TABLET PO SCH (08:40)
[2020-09-16] MEDS: SERTRALINE 50 MG TABLET PO SCH (08:40)
[2020-09-16] MEDS ORDERED: NON FORMULARY MED (Lisinopril [Lisinopril] 10 MG Tablet) PO SCH (09:00)
[2020-09-16] MEDS: NYSTATIN CREAM 15 GM TUBE TOP SCH ×2 (09:05→21:16)
[2020-09-16] MEDS: lisinopriL 5 MG TABLET PO SCH (09:15)
[2020-09-16] MEDS: METOPROLOL SUCCINATE 50 MG TABLET PO SCH (09:19)
[2020-09-16] MEDS: SPIRONOLACTONE 25 MG TABLET PO SCH (09:19)
[2020-09-16] MEDS: ENOXAPARIN 40 MG/0.4 ML SYRINGE SUBQ SCH (10:16)
[2020-09-16] MEDS: NYSTATIN POWDER 15 GM TOP SCH ×2 (10:53→21:16)
--- NOTE | 2020-09-16 12:22 | PHARMACY PROGRESS NOTE ---
- Best Possible Medication History Admit Date and Time: 09/16/20 0000 Processed by: Nursing Medication History completed: Yes Secondary Source(s): Insurance records Med list confirmed by nursing As the person ultimately responsible for medication therapy, providers are able to order a medication from an existing home medication list in [facility] via the "Reconcile Routine" prior to Confirmation of that medication by support representative. Such practice is discouraged except when the physician, in their clinical judgment, deems that a medical need exists for a medication without regard to previous use.
--- NOTE | 2020-09-16 13:07 | PROVIDER PROGRESS NOTE ---
Assessment/Plan - Problem List (1) Acute on chronic respiratory failure with hypoxia Assessment/Plan: 09/16 Improved, patient had 92% sats on 2 L oxygen. But the patient still show significantly shortness of breathing on exertion. Patient reported she took 2 L oxygen at home will continue treat the underlying problems of CHF and COPD exacerbations. Continue with supplemental oxygen. (2) Acute on chronic diastolic (congestive) heart failure pt's BNP is trended down, pt report she feel better. pt had 92% sats on 2 liter of O2. ECHO is still pending. troponins x3 was negative. We will continue intravenous Lasix, continue with her Spironolactone, beta- vinita and CAD treatment. continue I's and O's, daily weights, BNP and magnesium and daily electrolytes. (3) COPD exacerbation Improved, pt had 92% sats on 2 liter of O2. But the patient still show significantly shortness of breathing on exertion. continue nebs 4 times daily and every 4 hours as needed, using both bronchodilators and inhaled steroids. continue IV steroids with Solu-Medrol, reduce dosage of steroid gradually to wane off. Continue with supplemental oxygen. (4) Coronary artery disease Conclusion/Plan: stable, will continue her Aspirin, beta-vinita, Plavix and statin. (5) HTN (hypertension) Conclusion/Plan: stable, Continue her home Lisinopril, spironolactone, beta-vinita, and Lasix (in IV form). (6) Morbid obesity with BMI of 45.0-49.9, adult Conclusion/Plan: As per Hx. order Nystatin powder for groin skin rash (7) Depression Conclusion/Plan: continue her home medication - Current Meds Current Meds: Current Medications Generic Name Dose Route Start Last Admin Trade Name Freq PRN Reason Stop Dose Admin Albuterol/Ipratropium 3 ml 09/16/20 07:00 09/16/20 08:00 Ipratropium/Albuterol 3 Ml Neb INH 3 ml RTQID BETTYE Administration Aspirin 81 mg 09/16/20 09:00 09/16/20 08:40 Aspirin Ec 81 Mg Tablet PO 81 mg DAILY BETTYE Administration Budesonide 0.5 mg 09/16/20 07:00 09/16/20 08:00 Budesonide 0.5 Mg/2 Ml Neb INH 0.5 mg RTBID BETTYE Administration Clopidogrel Bisulfate 75 mg 09/16/20 09:00 09/16/20 08:40 Clopidogrel 75 Mg Tablet PO 75 mg DAILY BETTYE Administration Enoxaparin Sodium 40 mg 09/16/20 09:00 09/16/20 10:16 Enoxaparin 40 Mg/0.4 Ml Syringe SUBQ Not Given DAILY BETTYE Furosemide 20 mg 09/16/20 06:00 09/16/20 06:03 Furosemide 20 Mg/2 Ml Vial IVP 20 mg BIDDIURETIC BETTYE Administration Lisinopril 10 mg 09/16/20 09:00 09/16/20 09:15 Lisinopril 5 Mg Tablet PO 10 mg DAILY BETTYE Administration Metoprolol Succinate 50 mg 09/16/20 09:00 09/16/20 09:19 Metoprolol Succinate 50 Mg Tablet PO 50 mg DAILY BETTYE Administration Nystatin 1 applic 09/16/20 09:00 09/16/20 09:05 Nystatin Cream 15 Gm Tube TOP 1 applic BID BETTYE Administration Nystatin 1 applic 09/16/20 10:00 09/16/20 10:53 Nystatin Powder 15 Gm TOP 1 applic BID BETTYE Administration Sertraline HCl 50 mg 09/16/20 09:00 09/16/20 08:40 Sertraline 50 Mg Tablet PO 50 mg DAILY BETTYE Administration Sodium Chloride 10 ml 09/16/20 01:00 09/16/20 09:19 Sodium Chloride Flush 0.9% 10 Ml Syringe IVP 10 ml 0100,0900,1700 BETTYE Administration Spironolactone 25 mg 09/16/20 09:00 09/16/20 09:19 Spironolactone 25 Mg Tablet PO 25 mg DAILY BETTYE Administration - Lab Result Fish Bone Diagrams: 09/16/20 05:11 09/16/20 05:42 - Additional Planning My Orders: My Active Orders 09/16/20 09:00 Nystatin Cream [Mycostatin Cream] 1 applic TOP BID 09/16/20 09:01 Out of bed 4+ hours [RC] QID 09/16/20 10:00 Nystatin [Nystop] 1 applic TOP BID 09/16/20 14:00 methylPREDNISolone SUCCINATE [SOLU-Medrol (40MG VIAL)] 60 mg IVP TID Subjective - Subjective Patient Reports: Feeling Better Objective Vital Signs: Vital Signs - 24 hr 09/15/20 09/15/20 09/15/20 20:04 20:25 20:34 Temperature 36.5 C Heart Rate 60 54 L Heart Rate [ Brachial] Respiratory 16 12 Rate Blood Pressure 151/82 H Blood Pressure [Right Brachial artery] O2 Saturation 90 L 96 09/15/20 09/15/20 09/15/20 21:30 22:48 22:50 Temperature Heart Rate 56 L 95 Heart Rate [ Brachial] Respiratory 15 37 H Rate Blood Pressure 125/64 Blood Pressure [Right Brachial artery] O2 Saturation 94 89 L 84 L 09/15/20 09/16/20 09/16/20 23:00 00:25 01:00 Temperature 36.6 C Heart Rate 54 L 51 L Heart Rate [ 56 L Brachial] Respiratory 18 20 24 Rate Blood Pressure 125/99 H 102/73 Blood Pressure 143/66 H [Right Brachial artery] O2 Saturation 92 92 96 09/16/20 09/16/20 09/16/20 01:21 05:00 07:55 Temperature 36.5 C 36.6 C 36.6 C Heart Rate 51 L Heart Rate [ 51 L 51 L Brachial] Respiratory 20 20 20 Rate Blood Pressure Blood Pressure 125/50 L 123/47 L [Right Brachial artery] O2 Saturation 92 97 94 09/16/20 09/16/20 08:00 11:40 Temperature 36.4 C L Heart Rate 51 L Heart Rate [ 55 L Brachial] Respiratory 20 20 Rate Blood Pressure Blood Pressure 114/73 [Right Brachial artery] O2 Saturation 92 Oxygen O2 Source Nasal cannula Oxygen Flow Rate 2 I&O (Last 24 Hrs): Intake and Output Totals x24h 09/14/20 09/15/20 09/16/20 23:59 23:59 23:59 Intake Total 660 Output Total 2800 Balance -2140 General: Alert, Oriented x3, Cooperative, No acute distress HEENT: Atraumatic Neck: Supple, No thyromegaly Neuro: Alert, Non Focal, Oriented Times 3 Cardiovascular: Regular rate, Normal S1, Normal S2 Respiratory: Chest non-tender, No respiratory distress Abdomen: Normal bowel sounds, Soft, No tenderness Extremities: Normal pulses - Results Results: Laboratory Results WBC 12.6 x10^3/uL (4.8-10.8) H 09/16/20 05:11 RBC 5.35 10^6/uL (4.20-5.40) 09/16/20 05:11 Hgb 14.2 g/dL (12.0-16.0) 09/16/20 05:11 Hct 46.5 % (37.0-47.0) 09/16/20 05:11 MCV 86.9 fL (81.0-99.0) 09/16/20 05:11 MCH 26.5 pg (27.0-31.0) L 09/16/20 05:11 MCHC 30.5 g/dL (32.0-36.0) L 09/16/20 05:11 RDW 14.6 % (12.0-15.0) 09/16/20 05:11 Plt Count 428 10^3/uL (130-450) 09/16/20 05:11 MPV 10.4 fL (7.9-10.8) 09/16/20 05:11 Neut # (Auto) 9.1 10^3/uL (1.5-6.6) H 09/16/20 05:11 Lymph # (Auto) 2.3 10^3/uL (1.5-3.5) 09/16/20 05:11 Kings # (Auto) 0.8 10^3/uL (0.0-1.0) 09/16/20 05:11 Eos # (Auto) 0.4 10^3/uL (0.0-0.7) 09/16/20 05:11 Baso # (Auto) 0.1 10^3/uL (0.0-0.1) 09/16/20 05:11 Absolute Nucleated RBC 0.00 x10^3/uL 09/16/20 05:11 Nucleated RBC % 0.0 /100WBC 09/16/20 05:11 VBG pH 7.398 (7.31-7.41) 09/15/20 20:31 VBG pCO2 40.4 mmHg (41-51) L 09/15/20 20:31 VBG pO2 51.0 mmHg (25-47) H 09/15/20 20:31 VBG HCO3 24.4 mmol/L (23-28) 09/15/20 20:31 VBG Total CO2 25.6 mmol/L (24-29) 09/15/20 20:31 VBG O2 Saturation 88.7 % (60-80) H 09/15/20 20:31 VBG Base Excess -0.4 mmol/L (-2 - +2) 09/15/20 20:31 Sodium 139 mmol/L (135-145) 09/16/20 05:42 Potassium 3.5 mmol/L (3.5-5.0) 09/16/20 05:42 Chloride 97 mmol/L (101-111) L 09/16/20 05:42 Carbon Dioxide 30 mmol/L (21-32) 09/16/20 05:42 Anion Gap 12.0 (6-13) 09/16/20 05:42 BUN 16 mg/dL (6-20) 09/16/20 05:42 Creatinine 0.8 mg/dL (0.4-1.0) 09/16/20 05:42 Estimated GFR (MDRD) 71 (>89) L 09/16/20 05:42 Glucose 145 mg/dL (70-100) H 09/16/20 05:42 Calcium 8.7 mg/dL (8.5-10.3) 09/16/20 05:42 Magnesium 2.2 mg/dL (1.7-2.8) 09/16/20 05:42 Total Bilirubin 0.6 mg/dL (0.2-1.0) 09/15/20 20:31 AST 17 IU/L (10-42) 09/15/20 20:31 ALT 18 IU/L (10-60) 09/15/20 20:31 Alkaline Phosphatase 113 IU/L (42-121) 09/15/20 20:31 Troponin I High Sens 12.0 ng/L (2.3-14.8) 09/16/20 05:11 B-Natriuretic Peptide 853 pg/mL (5-100) H 09/16/20 05:11 Total Protein 7.2 g/dL (6.7-8.2) 09/15/20 20:31 Albumin 3.5 g/dL (3.2-5.5) 09/15/20 20:31 Globulin 3.7 g/dL (2.1-4.2) 09/15/20 20:31 Albumin/Globulin Ratio 0.9 (1.0-2.2) L 09/15/20 20:31 Triglycerides 160 mg/dL (-149) H 09/16/20 05:42 Cholesterol 148 mg/dL (-199) 09/16/20 05:42 LDL Cholesterol, Calc 86 mg/dL (-129) 09/16/20 05:42 VLDL Cholesterol 32 mg/dL 09/16/20 05:42 HDL Cholesterol 30 mg/dL (60-) L 09/16/20 05:42 LDL/HDL Ratio 2.9 (<4.4) 09/16/20 05:42 Cholesterol/HDL Ratio 4.9 (<4.4) 09/16/20 05:42 Lipase 22 U/L (22-51) 09/15/20 20:31 Nasal Adenovirus (PCR) NOT DETECTED 09/16/20 00:00 Nasal B. parapertussis DNA (PCR) NOT DETECTED 09/16/20 00:00 Nasal Coronavir 229E PCR NOT DETECTED 09/16/20 00:00 Nasal Coronavir HKU1 PCR NOT DETECTED 09/16/20 00:00 Nasal Coronavir NL63 PCR NOT DETECTED 09/16/20 00:00 Nasal Coronavir OC43 PCR NOT DETECTED 09/16/20 00:00 Nasal Enterovir/Rhinovir PCR NOT DETECTED 09/16/20 00:00 Nasal Influenza B PCR NOT DETECTED 09/16/20 00:00 Nasal Influenza A PCR NOT DETECTED 09/16/20 00:00 Nasal Parainfluen 1 PCR NOT DETECTED 09/16/20 00:00 Nasal Parainfluen 2 PCR NOT DETECTED 09/16/20 00:00 Nasal Parainfluen 3 PCR NOT DETECTED 09/16/20 00:00 Nasal Parainfluen 4 PCR NOT DETECTED 09/16/20 00:00 Nasal RSV (PCR) NOT DETECTED 09/16/20 00:00 Nasal B.pertussis DNA PCR NOT DETECTED 09/16/20 00:00 Nasal C.pneumoniae (PCR) NOT DETECTED 09/16/20 00:00 [place] Human Metapneumo PCR NOT DETECTED 09/16/20 00:00 Nasal M.pneumoniae (PCR) NOT DETECTED 09/16/20 00:00 Nasal SARS-CoV-2 (PCR) NOT DETECTED 09/16/20 00:00 ABX Reporting Has patient been on IV antibiotics over the past 48 hours?: No Current Medications - Current Medications Current Medications: Active Medications Acetaminophen (Acetaminophen 325 Mg Tablet) 650 mg PO Q4HR PRN PRN Reason: Pain 1 to 4 Albuterol/Ipratropium (Ipratropium/Albuterol 3 Ml Neb) 3 ml INH Q4HR PRN PRN Reason: Wheezing Albuterol/Ipratropium (Ipratropium/Albuterol 3 Ml Neb) 3 ml INH RTQID [facility] Last Admin: 09/16/20 08:00 Dose: 3 ml Documented by: Aspirin (Aspirin Ec 81 Mg Tablet) 81 mg PO DAILY [facility] Last Admin: 09/16/20 08:40 Dose: 81 mg Documented by: Atorvastatin Calcium (Atorvastatin 40 Mg Tablet) 40 mg PO QPM [facility] Budesonide (Budesonide 0.5 Mg/2 Ml Neb) 0.5 mg INH RTBID [facility] Last Admin: 09/16/20 08:00 Dose: 0.5 mg Documented by: Clopidogrel Bisulfate (Clopidogrel 75 Mg Tablet) 75 mg PO DAILY [facility] Last Admin: 09/16/20 08:40 Dose: 75 mg Documented by: Enoxaparin Sodium (Enoxaparin 40 Mg/0.4 Ml Syringe) 40 mg SUBQ DAILY [facility] Last Admin: 09/16/20 10:16 Dose: Not Given Documented by: Furosemide (Furosemide 20 Mg/2 Ml Vial) 20 mg IVP BIDDIURETIC [facility] Last Admin: 09/16/20 06:03 Dose: 20 mg Documented by: Lisinopril (Lisinopril 5 Mg Tablet) 10 mg PO DAILY [facility] Last Admin: 09/16/20 09:15 Dose: 10 mg Documented by: Methylprednisolone (Methylprednisolone Succinate 40 Mg/Ml Vial) 60 mg IVP TID [facility] Metoprolol Succinate (Metoprolol Succinate 50 Mg Tablet) 50 mg PO DAILY [facility] Last Admin: 09/16/20 09:19 Dose: 50 mg Documented by: Nitroglycerin (Nitroglycerin Sl 0.4 Mg Tablet) 0.4 mg SL Q5M PRN PRN Reason: Chest Pain Nystatin (Nystatin Cream 15 Gm Tube) 1 applic TOP BID [facility] Last Admin: 09/16/20 09:05 Dose: 1 applic Documented by: Nystatin (Nystatin Powder 15 Gm) 1 applic TOP BID [facility] Last Admin: 09/16/20 10:53 Dose: 1 applic Documented by: Sertraline HCl (Sertraline 50 Mg Tablet) 50 mg PO DAILY [facility] Last Admin: 09/16/20 08:40 Dose: 50 mg Documented by: Sodium Chloride (Sodium Chloride Flush 0.9% 10 Ml Syringe) 10 ml IVP PRN PRN PRN Reason: NEEDED PER PROVIDER ORDERS Sodium Chloride (Sodium Chloride Flush 0.9% 10 Ml Syringe) 10 ml IVP 0100,0900,1700 [facility] Last Admin: 09/16/20 09:19 Dose: 10 ml Documented by: Spironolactone (Spironolactone 25 Mg Tablet) 25 mg PO DAILY [facility] Last Admin: 09/16/20 09:19 Dose: 25 mg Documented by: Aspirin [Aspirin EC] 81 mg PO DAILY 06/22/19 Atorvastatin Calcium 40 mg PO QPM 06/22/19 Clopidogrel Bisulfate [Clopidogrel] 75 mg PO DAILY 06/22/19 Metoprolol Succinate [Toprol Xl] 50 mg PO DAILY 06/22/19 Nitroglycerin 0.4 mg SL Q5M PRN 06/22/19 lisinopriL [Lisinopril] 10 mg PO DAILY 12/01/19 Furosemide [Lasix] 20 mg PO BID 06/11/20 Sertraline [Zoloft] 50 mg PO DAILY 06/11/20 Spironolactone [Aldactone] 25 mg PO DAILY 06/11/20
[2020-09-16] MEDS: methylPREDNISolone SUCCINATE 40 MG/ML VIAL IVP SCH ×2 (13:24→21:17)
[2020-09-16] MEDS ORDERED: ATORVASTATIN 40 MG TABLET PO SCH (21:00)
[2020-09-17] MEDS: SODIUM CHLORIDE FLUSH 0.9% 10 ML SYRINGE IVP SCH ×2 (00:38→08:13)
[2020-09-17 05:16] LABS: CALCIUM 9.1 mg/dL (8.5-10.3); CREATININE 0.9 mg/dL (0.4-1.0); MAGNESIUM 2.2 mg/dL (1.7-2.8)
[2020-09-17 05:17] LABS: BASOPHILS % (AUTO) 0.3 %; HGB - HEMOGLOBIN 13.9 g/dL (12.0-16.0); LYMPHOCYTES % (AUTO) 5.6 %; MEAN CORPUSCULAR HEMOGLOBIN 26.8 pg (27.0-31.0); MEAN CORPUSCULAR HGB CONC 30.9 g/dL (32.0-36.0); MEAN CORPUSCULAR VOLUME 86.7 fL (81.0-99.0); MEAN PLATELET VOLUME 10.9 fL (7.9-10.8); MONOCYTES % (AUTO) 1.5 %; NEUTROPHILS % (AUTO) 91.7 %; PLT - PLATELET COUNT 418 10^3/uL (130-450); RED BLOOD COUNT 5.19 10^6/uL (4.20-5.40); RED CELL DISTRIBUTION WIDTH 14.3 % (12.0-15.0); WHITE BLOOD COUNT 20.9 x10^3/uL (4.8-10.8)
[2020-09-17 05:19] LABS: ABNORMAL LYMPHS % (MANUAL) 0 %; BAND NEUTROPHILS % (MANUAL) 0 %
[2020-09-17] MEDS: FUROSEMIDE 20 MG/2 ML VIAL IVP SCH (05:20)
[2020-09-17] MEDS: methylPREDNISolone SUCCINATE 40 MG/ML VIAL IVP SCH (05:20)
[2020-09-17 05:34] LABS: DIFFERENTIAL COMMENT MANUAL DIFFERENTIAL; LYMPHOCYTES # (MANUAL) 1.5 10^3/uL (1.5-3.5); LYMPHOCYTES % (MANUAL) 7 %; MONOCYTES # (MANUAL) 0.2 10^3/uL (0.0-1.0); NEUTROPHILS # (MANUAL) 19.2 10^3/uL (1.5-6.6); PLATELET ESTIMATE, MANUAL NORMAL (130-450,000) (NORMAL); PLATELET MORPHOLOGY NORMAL APPEARANCE (NORMAL); RBC MORPHOLOGY (MULTIPLE) NORMAL APPEARANCE (NORMAL); WBC MORPHOLOGY (MULTIPLE) NORMAL APPEARANCE (NORMAL)
[2020-09-17] MEDS: BUDESONIDE 0.5 MG/2 ML NEB INH SCH (07:30)
[2020-09-17] MEDS: SPIRONOLACTONE 25 MG TABLET PO SCH (08:12)
[2020-09-17] MEDS: NYSTATIN CREAM 15 GM TUBE TOP SCH (08:12)
[2020-09-17] MEDS: ASPIRIN EC 81 MG TABLET PO SCH (08:12)
[2020-09-17] MEDS: lisinopriL 5 MG TABLET PO SCH (08:12)
[2020-09-17] MEDS: SERTRALINE 50 MG TABLET PO SCH (08:12)
[2020-09-17] MEDS: CLOPIDOGREL 75 MG TABLET PO SCH (08:12)
[2020-09-17] MEDS: METOPROLOL SUCCINATE 50 MG TABLET PO SCH (08:12)
[2020-09-17] MEDS: ENOXAPARIN 40 MG/0.4 ML SYRINGE SUBQ SCH (08:13)
[2020-09-17] MEDS: NYSTATIN POWDER 15 GM TOP SCH (08:13)
--- NOTE | 2020-09-17 10:32 | Discharge Plan ---
Discharge Plan Problem Reviewed?: Yes Disposition: Home, Self Care Condition: Stable Prescriptions: predniSONE [Deltasone] 4 tablet PO DAILY #13 tablet Diet: Regular Activity Restrictions: Activity as Tolerated Shower Restrictions: No (fall precaution) Instruction Topics: Prednisone tablets Health Concerns: heart failure, COPD Plan of Treatment: After diuretics, you feel better, you may continue followup with your braided rug maker as out-pt, you may resume your home medication schedule. You are prescribed 5 days Prednisone to finish the treatment course for your COPD. You may followup with family support coordinator and pulmonary wellness program as out- pt. You may resume your home meds as the schedule. Care Goals: stabilization and improvement of your medical conditions. Assessment: Discussed the care plan with you, answered your questions, you understood. Additional Instructions or Follow Up instructions: You may followup with your PCP in one week, followup with your braided rug maker and family support coordinator as out-pt. Should your symptoms return or worsen, you may present ER or call 911 for help. Follow-Up Care: [facility], [facility] No Smoking: If you smoke, Please STOP! Call for help. Follow-up with: Nuno Bauman MD [Primary Care Provider] -
--- NOTE | 2020-09-17 10:44 | DISCHARGE SUMMARY ---
Discharge Summary Admit Date: 09/15/20 Discharge Date: 09/17/20 Discharging Provider: Calderon Kenney Primary Care Provider: Nuno Richardson Condition at Discharge: Stable Discharge Disposition: 01 Home, Self Care Discharge Facility Name: home - DIAGNOSES Discharge Diagnoses with Status of Each Condition: (1) Acute on chronic respiratory failure with hypoxia resolved. pt has no acute respiratory distress in rest or exertion. pt has 95- 97% sats on 2 LPM of O2. pt took 2 LPM of O2 by NC at home as her baseline. BNP is treaded down to 600 from 1100 at the admission. (2) Acute on chronic diastolic (congestive) heart failure resolved at acute phase. pt's BNP is trended down to 600 from 1100 at the admis kashif. pt report she feel much better. pt has no acute respiratory distress in rest or exertion. pt has 95-97% sats on 2 LPM of O2. pt took 2 LPM of O2 by NC at home. pt may resume home meds (3) COPD exacerbation resolved at acute phase.pt has no acute respiratory distress in rest or exertion. pt has 95-97% sats on 2 LPM of O2. pt took 2 LPM of O2 by NC at home. pt may resume home meds. pt report she had albuterol and Duoneb INH at home. she does not need new prescription. pt is prescribed short term of prednisone. (4) Coronary artery disease stable, resume home meds (5) HTN (hypertension) stable (6) Morbid obesity with BMI of 45.0-49.9, adult advise pt loss of weight (7) Depression stable, resume home meds - [facility] History of Present Illness: refer from Fani De Los Santos's HPI on 09/15/20 This is a 70-year-old white female with history of obesity, COPD who recently quit smoking, history of diastolic heart failure, CAD with stenting done 1-1/2 years ago, hypertension and depression. Patient was admitted here in June (3 months ago) with CHF and COPD exacerbation, required several days for IV diuresis and IV steroids. During the last admission it she admitted that she was not compliant with a low-salt diet. She is on home oxygen at 2 L/min. The patient presented to the emergency room complaining of shortness of breath progressively worsening over the past 1 week for which her oxygen needs have been increasing and also worsening of leg swelling. She denies have a fever, cough or sputum production. Patient was noted to be wheezing in the ER and received a nebulizer. A chest x-ray showed CHF and BNP was 1100, and she received IV Lasix 80 mg and has started to have diuresis. While she was walking in the ED, she desaturated to 88% despite being on supplemental oxygen and is very tachypneic with minimal activity. The patient is being admitted to the Hospitalist service as inpatient status for acute on chronic respiratory failure with hypoxia from CHF exacerbation and COPD exacerbation. - HOSPITAL COURSE Hospital Course: Patient was admitted for worsening shortness of breathing. Patient was found to have acute on chronic diastolic heart failure, COPD exacerbation. Patient take 2 L oxygen by nasal cannula at home As her baseline. Patient was treated with intravenous diuretics Lasix and IV steroid, breathing treatment, Supplemental oxygen as needed. After treatment, patient had a significantly improved. BNP is trended down to the 600 from 1100 at admission. Patient reported she feels much better, she had 95 to 97% O2 sats on 2 L of oxygen. Patient has no acute respiratory distress on rest or exertion. in tele monitor, because pt's tele leads had mislocation, which cause her abnormal tele. after nurse change tele leads, pt's tele immediately show sinus rhythm, and repeated EKG show Sinus rhythm as well. pt has asymptomatic without dizziness, palpitation, chest pain all the time. Patient was discharged at hemodynamic stable condition. - ALLERGIES Allergies/Adverse Reactions: Allergies Allergy/AdvReac Type Severity Reaction Status Date / Time Sulfa (Sulfonamide Allergy Hives Verified 09/15/20 20:04 Antibiotics) - MEDICATIONS Home Medications: Ambulatory Orders Medication Instructions Recorded Confirmed Aspirin [Aspirin EC] 81 mg PO DAILY 06/22/19 09/15/20 Atorvastatin Calcium 40 mg PO QPM 06/22/19 09/15/20 Clopidogrel Bisulfate [Clopidogrel] 75 mg PO DAILY 06/22/19 09/15/20 Metoprolol Succinate [Toprol Xl] 50 mg PO DAILY 06/22/19 09/15/20 Nitroglycerin 0.4 mg SL Q5M PRN 06/22/19 09/15/20 lisinopriL [Lisinopril] 10 mg PO DAILY 12/01/19 09/15/20 Albuterol 2.5 mg INH Q4H PRN #30 neb 04/16/20 09/15/20 Furosemide [Lasix] 20 mg PO BID 06/11/20 09/15/20 Sertraline [Zoloft] 50 mg PO DAILY 06/11/20 09/15/20 Spironolactone [Aldactone] 25 mg PO DAILY 06/11/20 09/15/20 Nystatin Cream [Mycostatin Cream] 1 gm TOP BID #45 gr 06/12/20 09/15/20 predniSONE [Deltasone] 4 tablet PO DAILY #13 tablet 09/17/20 - PHYSICAL EXAM AT DISCHARGE General Appearance: positive: No acute distress, Alert. negative: Lethargic Eyes Bilateral: positive: Normal inspection, PERRL, No lid inflammation ENT: positive: ENT inspection nml, No signs of dehydration. negative: Purulent nasal drainage Neck: positive: Nml inspection, Trachea midline. negative: Thyromegaly, Tracheal deviation Respiratory: positive: Chest non-tender, No respiratory distress, Other (diminished lung sound bilateral as her baseline. ). negative: Wheezes, Rales Cardiovascular: positive: Regular rate & rhythm, No murmur. negative: Tachycardia, Bradycardia, Systolic murmur, Diastolic murmur Peripheral Pulses: positive: 2+ Abdomen: positive: Non-tender, Nml bowel sounds, No distention. negative: Tenderness Back: positive: Nml inspection Skin: positive: Color nml, Warm, Dry. negative: Cyanosis, Diaphoresis Extremities: positive: Non-tender, Full ROM, Nml appearance, No pedal edema. negative: Pedal edema, Calf tenderness Neurologic/Psychiatric: positive: Oriented x3, Motor nml, Sensation nml, Mood/affect nml. negative: Weakness, Sensory loss, Facial droop, Slurred/abnml speech, Depressed mood/affect - LABS Result Diagrams: 09/17/20 04:21 09/17/20 04:21 - FOLLOW UP Follow Up: After diuretics, you feel better, you may continue followup with your fire fighter airport as out-pt, you may resume your home medication schedule. You are prescribed 5 days Prednisone to finish the treatment course for your COPD. You may followup with plate shear operator, and pulmonary wellness program as well cardiac wellness program as out-pt. You may resume your home meds as the schedule. You may followup with your PCP in one week, followup with your fire fighter airport and plate shear operator as out-pt. Should your symptoms return or worsen, you may present ER or call 911 for help. - TIME SPENT Time Spent in Discharge (Minutes): 30
[2020-09-17] MEDS: IPRATROPIUM/ALBUTEROL 3 ML NEB INH SCH (11:45)
[2020-09-17 13:17] VITALS: BP 119/65
[2020-09-17] MEDS ORDERED: methylPREDNISolone SUCCINATE 40 MG/ML VIAL IVP SCH (14:00)
[2020-09-17] MEDS ORDERED: FUROSEMIDE 20 MG TABLET PO SCH (15:00)
== END 2020-09-17 13:30 | disposition home or self-care (01) | DRG 291 ==
LOC: ED 20:01 → MS2 09-16
PROVIDERS: ADMIT Internal Medicine; ATTEND Nurse Practitioner Gerontology
DX: I50.9 Heart failure, unspecified (principal); D72.829 Elevated white blood cell count, unspecified; J44.9 Chronic obstructive pulmonary disease, unspecified; I11.0 Hypertensive heart disease with heart failure; J96.21 Acute and chronic respiratory failure with hypoxia; J44.1 Chronic obstructive pulmonary disease with (acute) exacerbation; Z68.42 Body mass index [BMI] 45.0-49.9, adult; I50.33 Acute on chronic diastolic (congestive) heart failure; I27.20 Pulmonary hypertension, unspecified; I25.10 Atherosclerotic heart disease of native coronary artery without angina pectoris; F41.9 Anxiety disorder, unspecified; F32.9 Major depressive disorder, single episode, unspecified; Z99.81 Dependence on supplemental oxygen; E66.01 Morbid (severe) obesity due to excess calories; I25.2 Old myocardial infarction; Z79.82 Long term (current) use of aspirin; Z79.899 Other long term (current) drug therapy; Z87.891 Personal history of nicotine dependence; Z95.5 Presence of coronary angioplasty implant and graft
CPT/HCPCS: 36415; 71045; 80048; 80053; 80061; 82803; 83690; 83735; 83880; 84484; 85025; 87631; 93005; 93308; 94640; 96374; 99285; A9270; J1650; J7626; 0202U; 83721

== ENCOUNTER 2020-11-08 13:40 | Inpatient (IN) | payer MEDICARE ==
--- NOTE | 2020-11-08 14:07 | ED Physician Documentation ---
PD HPI DYSPNEA - Stated complaint Stated Complaint: SOA - Chief complaint Chief Complaint: Resp - History obtained from History obtained from: Patient - Additional information Additional information: 70yF with pmh cad with stents, copd on home 2L o2, chf, p/w Shortness of breath and progressive dyspnea on exertion over the past week. Unable to shower and do ADLs without severe dyspnea. she has increased her o2 usage to 2.5 or 3L lately. ran out of her albuterol inhaler so has not been using. Denies fever, chest pain, leg swelling. +nonproductive cough X 2 weeks. Spends most of her time in bed and gets up to go to the bathroom frequently. No prior history of clots. +covid vaccine. Review of Systems Constitutional: denies: Fever, Chills Nose: denies: Rhinorrhea / runny nose Throat: denies: Sore throat Cardiac: denies: Chest pain / pressure Respiratory: reports: Dyspnea GI: denies: Nausea PD PAST MEDICAL HISTORY - Past Medical History Past Medical History: Yes Cardiovascular: Congestive heart failure, Coronary artery disease, [place] Respiratory: COPD, Other Neuro: None Endocrine/Autoimmune: None GI: None ROAD MENDER: None : None HEENT: None Psych: Depression, Anxiety Musculoskeletal: None Derm: None - Past Surgical History Past Surgical History: Yes General: Cholecystectomy, Appendectomy Cardiovascular: Coronary stent - Present Medications Home Medications: Ambulatory Orders Medication Instructions Recorded Confirmed Aspirin [Aspirin EC] 81 mg PO DAILY 06/22/19 09/15/20 Atorvastatin Calcium 40 mg PO QPM 06/22/19 09/15/20 Clopidogrel Bisulfate [Clopidogrel] 75 mg PO DAILY 06/22/19 09/15/20 Metoprolol Succinate [Toprol Xl] 50 mg PO DAILY 06/22/19 09/15/20 Nitroglycerin 0.4 mg SL Q5M PRN 06/22/19 09/15/20 lisinopriL [Lisinopril] 10 mg PO DAILY 12/01/19 09/15/20 Albuterol 2.5 mg INH Q4H PRN #30 neb 04/16/20 09/15/20 Furosemide [Lasix] 20 mg PO BID 06/11/20 09/15/20 Sertraline [Zoloft] 50 mg PO DAILY 06/11/20 09/15/20 Spironolactone [Aldactone] 25 mg PO DAILY 06/11/20 09/15/20 Nystatin Cream [Mycostatin Cream] 1 gm TOP BID #45 gr 06/12/20 09/15/20 predniSONE [Deltasone] 4 tablet PO DAILY #13 tablet 09/17/20 - Allergies Allergies/Adverse Reactions: Allergies Allergy/AdvReac Type Severity Reaction Status Date / Time Sulfa (Sulfonamide Allergy Hives Verified 11/08/20 13:45 Antibiotics) - Social History Does the pt smoke?: No Smoking Status: Never smoker Does the pt drink ETOH?: No Does the pt have substance abuse?: No - Immunizations Immunizations are current?: Yes - POLST Patient has POLST: No POLST Status: Full Code PD ED PE NORMAL - Vitals Vital signs reviewed: Yes - General General: Alert and oriented X 3, No acute distress, Well developed/nourished - HEENT HEENT: Atraumatic, PERRL, EOMI - Neck Neck: Supple, no meningeal sign - Cardiac Cardiac: RRR - Respiratory Respiratory: No respiratory distress, Clear bilaterally - Abdomen Abdomen: Non tender, Non distended - Derm Derm: Normal color - Extremities Extremities: No deformity, Other (1+ BL pitting edema) - Neuro Neuro: Alert and oriented X 3, No motor deficit, No sensory deficit - Psych Psych: Normal mood, Normal affect Results - Vitals Vitals: Vital Signs - 24 hr 11/08/20 11/08/20 11/08/20 13:45 13:57 15:49 Temperature 36.7 C Heart Rate 57 L 57 L 52 L Respiratory 24 20 20 Rate Blood Pressure 141/53 H 157/62 H 111/85 H O2 Saturation 90 L 94 94 Oxygen O2 Source Nasal cannula Oxygen Flow Rate 2 - EKG (time done) 1411 Rate: Rate (enter#) (54) Rhythm: Sinus bradycardia Ischemia: Other (old anterolateral and inferior ischemic changes seen on 09/15/20 ekg previously) - Labs Labs: Laboratory Tests 11/08/20 11/08/20 11/08/20 13:58 13:58 13:58 WBC 13.6 H RBC 5.34 Hgb 14.5 Hct 46.7 MCV 87.5 MCH 27.2 MCHC 31.0 L RDW 14.4 Plt Count 456 H MPV 10.9 H Neut # (Auto) 10.8 H Lymph # (Auto) 1.7 [place] # (Auto) 0.7 Eos # (Auto) 0.3 Baso # (Auto) 0.1 Absolute Nucleated RBC 0.00 Nucleated RBC % 0.0 D-Dimer VBG pH VBG pCO2 VBG pO2 VBG HCO3 VBG Total CO2 VBG O2 Saturation VBG Base Excess Sodium 138 Potassium 4.0 Chloride 100 L Carbon Dioxide 27 Anion Gap 11.0 BUN 14 Creatinine 0.8 Estimated GFR (MDRD) 71 L Glucose 147 H Calcium 8.9 Total Bilirubin 0.9 AST 15 ALT 16 Alkaline Phosphatase 103 Troponin I High Sens 11.4 B-Natriuretic Peptide Total Protein 7.7 Albumin 3.7 Globulin 4.0 Albumin/Globulin Ratio 0.9 L Lipase 21 L 11/08/20 11/08/20 11/08/20 13:58 13:58 14:38 WBC RBC Hgb Hct MCV MCH MCHC RDW Plt Count MPV Neut # (Auto) Lymph # (Auto) [place] # (Auto) Eos # (Auto) Baso # (Auto) Absolute Nucleated RBC Nucleated RBC % D-Dimer 439.0 H VBG pH 7.374 VBG pCO2 51.2 H VBG pO2 28.5 VBG HCO3 29.2 H VBG Total CO2 30.8 H VBG O2 Saturation 57.7 L VBG Base Excess 2.9 H Sodium Potassium Chloride Carbon Dioxide Anion Gap BUN Creatinine Estimated GFR (MDRD) Glucose Calcium Total Bilirubin AST ALT Alkaline Phosphatase Troponin I High Sens B-Natriuretic Peptide 1095 H Total Protein Albumin Globulin Albumin/Globulin Ratio Lipase PD MEDICAL DECISION MAKING - ED course ED course: 70-year-old woman presents with shortness of breath over the past week, ran out of her COPD meds. Will obtain screening lab work, chest x-ray, reevaluate. Patient with elevated WBC count and atypical pneumonia on CXR. CT without evidence of PE. ambulated patient with 2L o2 and she desatted to 90% and became tachypneic in the 50s, lightheaded, and we had to assist her back to the bed. d/w Dr. Gil for admission and he will see her. Departure - Departure Clinical Impression: Atypical pneumonia
[2020-11-08 14:22] LABS: BASOPHILS # (AUTO) 0.1 10^3/uL (0.0-0.1); BASOPHILS % (AUTO) 0.5 %; EOSINOPHILS # (AUTO) 0.3 10^3/uL (0.0-0.7); EOSINOPHILS % (AUTO) 2.3 %; HCT - HEMATOCRIT 46.7 % (37.0-47.0); HGB - HEMOGLOBIN 14.5 g/dL (12.0-16.0); LYMPHOCYTES # (AUTO) 1.7 10^3/uL (1.5-3.5); LYMPHOCYTES % (AUTO) 12.6 %; MEAN CORPUSCULAR HEMOGLOBIN 27.2 pg (27.0-31.0); MEAN CORPUSCULAR VOLUME 87.5 fL (81.0-99.0); MEAN PLATELET VOLUME 10.9 fL (7.9-10.8); MONOCYTES # (AUTO) 0.7 10^3/uL (0.0-1.0); MONOCYTES % (AUTO) 4.8 %; NEUTROPHILS # (AUTO) 10.8 10^3/uL (1.5-6.6); NEUTROPHILS % (AUTO) 79.3 %; PLT - PLATELET COUNT 456 10^3/uL (130-450); RED BLOOD COUNT 5.34 10^6/uL (4.20-5.40); RED CELL DISTRIBUTION WIDTH 14.4 % (12.0-15.0); WHITE BLOOD COUNT 13.6 x10^3/uL (4.8-10.8)
[2020-11-08 14:35] LABS: ALBUMIN 3.7 g/dL (3.2-5.5); ALBUMIN/GLOBULIN RATIO 0.9 (1.0-2.2); BILIRUBIN,TOTAL 0.9 mg/dL (0.2-1.0); CALCIUM 8.9 mg/dL (8.5-10.3); CREATININE 0.8 mg/dL (0.4-1.0); TOTAL PROTEIN 7.7 g/dL (6.7-8.2)
--- NOTE | 2020-11-08 14:37 | XRAY Report ---
PROCEDURE: Chest 1 View X-Ray INDICATIONS: Chest Pain TECHNIQUE: One view of the chest was acquired. COMPARISON: 09/15/2020 chest x-ray FINDINGS: Surgical changes and devices: None. Lungs and pleura: No pleural effusions or pneumothorax. Mild diffuse reticulonodular pulmonary opaci ty. Mediastinum: Mediastinal contours appear normal. Heart size is normal. Bones and chest wall: No suspicious bony lesions. Overlying soft tissues appear unremarkable. IMPRESSION: Mild atypical pneumonia. Reviewed by: Ramo Ballesteros MD on 11/08/2020 1:35 PM AKDT Approved by: Ramo Ballesteros MD on 11/08/2020 1:35 PM LYLE Station ID: [id number]
[2020-11-08 14:51] LABS: VBG PH 7.374 (7.31-7.41)
[2020-11-08 14:52] LABS: VBG BASE EXCESS 2.9 mmol/L (-2 - +2); VBG HCO3 29.2 mmol/L (23-28); VBG OXYGEN SATURATION 57.7 % (60-80); VBG PCO2 51.2 mmHg (41-51); VBG PO2 28.5 mmHg (25-47); VBG TOTAL CO2 30.8 mmol/L (24-29)
[2020-11-08] MEDS ORDERED: IOPAMIDOL-300 100 ML VIAL ONE (16:21)
[2020-11-08] MEDS ORDERED: IOPAMIDOL-300 100 ML VIAL IVP ONE (17:04)
--- NOTE | 2020-11-08 17:21 | CT Report ---
PROCEDURE: ANGIO CHEST W/WO INDICATIONS: elevated dimer, SOA CONTRAST: IV CONTRAST: Isovue 300 ml: 80 PO CONTRAST: *NO PO CONTRAST TECHNIQUE: After the administration of intravenous contrast, images were acquired from the pulmonary apices to t he posterior costophrenic angles. 3-dimensional maximum intensity projection (MIP) coronal and sagit rosaura reformats were then acquired through the thorax. For radiation dose reduction, the following was used: automated exposure control, adjustment of mA and/or kV according to patient size. COMPARISON: None FINDINGS: Image quality: Motion artifact limits the examination. Peripheral subsegmental pulmonary malaise and cannot be excluded. Exam is further limited by the patient's body habitus which creates streak artifa ct and photon starvation artifact. Pulmonary arteries: No large central or proximal pulmonary embolism. Lungs and pleura: Apical predominant centrilobular and paraseptal emphysematous changes, right greate r than left. No focal acute consolidation or airspace opacity otherwise. No pleural effusion or other significant pleural abnormality identified grossly. Mediastinum: Heart size is within normal limits. Four-vessel coronary atherosclerosis. Normal caliber thoracic aorta and main pulmonary trunk. Reflux of contrast into the central hepatic veins suggests possible right heart strain or dysfunction. Bones and chest wall: Normal thoracic spine alignment. No compression fracture identified. Abdomen: Probable left adrenal adenoma.. IMPRESSION: No pulmonary masses or other acute finding in the chest demonstrated. Markedly limited exam due to patient body habitus and respiratory motion artifact. Probable left adrenal adenoma. Nonemergent outpatient evaluation could be considered to confirm, if n o prior studies exist to document stability. Reviewed by: Santana Hughes MD on 11/08/2020 5:20 PM PDT Approved by: Santana Hughes MD on 11/08/2020 5:20 PM PDT Station ID: [id number]
[2020-11-08] MEDS ORDERED: cefTRIAXone 2 GM in SODIUM CHLORIDE 0.9% MINIBAG 100 ML IV STA (17:45)
[2020-11-08] MEDS ORDERED: AZITHROMYCIN INJ 500 MG in SODIUM CHLORIDE 0.9% 250 ML IV STA (17:46)
[2020-11-08] MEDS ORDERED: DEXAMETHASONE 10 MG/ML VIAL IVP STA (17:50)
[2020-11-08] MEDS ORDERED: cefTRIAXone 2 GM VIAL ONE (17:58)
[2020-11-08] MEDS ORDERED: ACETAMINOPHEN 325 MG TABLET PO PRN (18:06)
[2020-11-08] MEDS ORDERED: HYDROcod/ACETAM 5/325 MG TABLET PO PRN (18:06)
[2020-11-08] MEDS ORDERED: ONDANSETRON 4 MG/2 ML VIAL IVP PRN (18:06)
[2020-11-08] MEDS ORDERED: IPRATROPIUM/ALBUTEROL 3 ML NEB INH PRN (18:10)
--- NOTE | 2020-11-08 18:10 | HISTORY & PHYSICAL EXAMINATION ---
Chief Complaint - Chief Complaint Chief Complaint: worsening dyspnea History of Present Illness - Admitted From Admitted From:: [facility] - History Obtained From Records Reviewed: yes History obtained from: patient - History of Present Illness HPI Comment/Other: Patient is a 70-year-old female with multiple medical comorbidities which inclu de morbid obesity, coronary disease, CHF, COPD, hypertension, hyperlipidemia who presented to the ED with worsening dyspnea. Symptoms have been going on for the past 2 weeks but became unbearable today. She uses 2 L of oxygen via nasal cannula at home. This was unable to sustain her oxygen requirement. Upon presentation to the ED attempts to ambulate her resulted in significant tachypnea with a respiratory rate as high as 50. She reports a nonproductive cough. She denied fever or chills. She denies chest pain, abdominal pain, nausea, vomiting or lower extremity edema. In the ED her white blood cell count was noted to be 13.6. She had a BNP of 1095 Chest x-ray was done and suggested mild atypical pneumonia. The patient is visibly dyspneic and has an audible mild wheeze. There's diminished lung sounds on auscultation of her lungs. History - Past Medical History Cardiovascular: reports: Congestive heart failure, Hypertension, High cholesterol, Coronary artery disease, [place] Respiratory: reports: COPD, Other Neuro: reports: None Endocrine/Autoimmune: reports: None GI: reports: None [employer]IC: reports: None : reports: None HEENT: reports: None Psych: reports: Depression, Anxiety Musculoskeletal: reports: None Derm: reports: None - Past Surgical History General: reports: Cholecystectomy, Appendectomy Cardiovascular: reports: Coronary stent - Family & Social History Family History: Mother: , Alzheimer's Disease, Father: , CAD Family History Comment/Other: She states her father from myocardial infarction in his early 50s. 3 of her brothers also have heart disease and have required CABGs. Living Situation: Alone Social History Notes: She quit smoking back in April 2019. She has been smoking for about 50 years prior to this varying from half a pack to a pack a day. She reports no alcohol use. She lives alone and has been retired for 2 years. 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 She lives next door to her brother. - Substance History Use: Uses substance without health or social issues: NONE - POLST Patient has POLST: No POLST Status: Full Code Meds/Allgy - Home Medications Home Medications: Ambulatory Orders Medication Instructions Recorded Confirmed Aspirin [Aspirin EC] 81 mg PO DAILY 06/22/19 09/15/20 Atorvastatin Calcium 40 mg PO QPM 06/22/19 09/15/20 Clopidogrel Bisulfate [Clopidogrel] 75 mg PO DAILY 06/22/19 09/15/20 Metoprolol Succinate [Toprol Xl] 50 mg PO DAILY 06/22/19 09/15/20 Nitroglycerin 0.4 mg SL Q5M PRN 06/22/19 09/15/20 lisinopriL [Lisinopril] 10 mg PO DAILY 12/01/19 09/15/20 Albuterol 2.5 mg INH Q4H PRN #30 neb 04/16/20 09/15/20 Furosemide [Lasix] 20 mg PO BID 06/11/20 09/15/20 Sertraline [Zoloft] 50 mg PO DAILY 06/11/20 09/15/20 Spironolactone [Aldactone] 25 mg PO DAILY 06/11/20 09/15/20 Nystatin Cream [Mycostatin Cream] 1 gm TOP BID #45 gr 06/12/20 09/15/20 predniSONE [Deltasone] 4 tablet PO DAILY #13 tablet 09/17/20 - Allergies Allergies/Adverse Reactions: Allergies Allergy/AdvReac Type Severity Reaction Status Date / Time Sulfa (Sulfonamide Allergy Hives Verified 11/08/20 13:45 Antibiotics) Review of Systems - Constitutional Constitutional: denies: Fatigue, Fever, Chills - Eyes Eyes: denies: Pain - Ears, Nose & Throat Ears, Nose & Throat: denies: Ear pain - Respiratory Respiratory: reports: Cough, Wheezing, SOB at rest, SOB with exertion. denies: Sputum production - Gastrointestinal Gastrointestinal: denies: Abdominal pain, Abdominal distention, Diarrhea, Nausea, Vomiting - Genitourinary Genitourinary: denies: Dysuria, Frequency, Urgency, Hematuria - Musculoskeletal Musculoskeletal: denies: Muscle pain, Back pain - Integumentary Integumentary: denies: Rash, Pruritis - Neurological Neurological: denies: General weakness, Focal weakness, Headache - Psychiatric Psychiatric: reports: Depression - Endocrine Endocrine: denies: Polyuria, Polydypsia - Hematologic/Lymphatic Hematologic/Lymphatic: denies: Anemia, Bruising, Petechiae Prior Level of Functionality: She is independent of activities of daily living Exam - Vital Signs Vital Signs: Vital Signs x48h Temp Pulse Resp BP Pulse Ox 11/08/20 17:00 36.5 C 55 L 24 137/68 H 94 11/08/20 15:49 52 L 20 111/85 H 94 11/08/20 13:57 57 L 20 157/62 H 94 11/08/20 13:45 36.7 C 57 L 24 141/53 H 90 L - Physical Exam General Appearance: positive: Mild distress (dyspnea) Eyes Bilateral: positive: PERRL, EOMI ENT: positive: No signs of dehydration Neck: positive: No JVD, Trachea midline Respiratory: positive: Chest non-tender, Wheezes, Other (Mild dyspnea) Cardiovascular: positive: No murmur, Bradycardia Abdomen: positive: Non-tender, No organomegaly, Nml bowel sounds, No distention. negative: Guarding, Rebound Back: positive: Nml inspection Skin: positive: Color nml, No rash, Warm, Dry Extremities: positive: Non-tender, Full ROM, Nml appearance, No pedal edema Neurologic/Psychiatric: positive: Oriented x3, Mood/affect nml Conclusion/Plan - Problem List (1) Atypical pneumonia Conclusion/Plan: Chest x-ray indicated mild atypical pneumonia. Patient started on Rocephin and azithromycin IV. Continue supplemental oxygen via nasal cannula 2 L. DuoNeb every 4 hours as needed. Solu-Medrol 40 mg IV 3 times daily for 6 doses only. (2) Acute on chronic respiratory failure with hypoxia Conclusion/Plan: Possibly multifactorial. Secondary to atypical pneumonia, COPD exacerbation, CHF and body habitus Patient started on Rocephin and azithromycin IV. Continue supplemental oxygen via nasal cannula 2 L. DuoNeb every 4 hours as needed. Solu-Medrol 40 mg IV 3 times daily for 6 doses only. Negative for PE or masses. (4) Morbid obesity with BMI of 45.0-49.9, adult Conclusion/Plan: We will continue to advise diet and exercise (5) CHF, chronic Conclusion/Plan: Patient's BNP was 1095 2D echocardiogram done on 09/16/20 showed overall left ventricular systolic function in the lower limits of normal with an ejection fraction of 50 to 55%. *Anteroseptal, apical distal anterior wall segment hypokinesis was noted. The right ventricular size was normal. Moderate abnormal right heart pressures. RVSP at rest was 52 mmHg. Lasix 20 mg IV x1 was ordered. We will continue Lasix 20 mg p.o. twice daily. Continue patient's spironolactone, and lisinopril. We will hold patient's metoprolol for now due to bradycardia. Qualifiers: Heart failure type: unspecified Qualified Code(s): I50.9 - Heart failure, unspecified (6) Thi rash of groin Conclusion/Plan: Continue nystatin cream 1 application twice daily (7) Coronary artery disease Conclusion/Plan: Patient is on aspirin, Plavix, atorvastatin and lisinopril. We will hold metoprolol for now due to bradycardia and resume when appropriate to do so. (8) Depression Conclusion/Plan: On sertraline 50 mg p.o. daily Qualifiers: (9) HTN (hypertension) Conclusion/Plan: , Spironolactone and lisinopril. Will resume metoprolol when appropriate to do so. - Lab Results Fish Bones: 11/08/20 13:58 11/08/20 13:58 Core Measures - Anticipated LOS I expect patient to be DC'd or transferred within 96 hours.: Yes - DVT/VTE - Prophylaxis VTE/DVT Device ordered at admit?: Yes VTE/DVT Prophylaxis med ordered at admit?: Yes
[2020-11-08] MEDS ORDERED: ALBUTEROL NEB 2.5 MG/3 ML INH PRN (18:11)
[2020-11-08] MEDS ORDERED: FUROSEMIDE 20 MG/2 ML VIAL IVP STA (18:13)
[2020-11-08 18:44] LABS: B. PARAPERTUSSIS- RESP PCR PAN NOT DETECTED; B. PERTUSSIS- RESP PCR PANEL NOT DETECTED; C. PNEUMONIAE- RESP PCR PANEL NOT DETECTED; CORONAVIRUS 229E-RESP PCR NOT DETECTED; CORONAVIRUS HKU1-RESP PCR NOT DETECTED; CORONAVIRUS NL63-RESP PCR NOT DETECTED; CORONAVIRUS OC43-RESP PCR NOT DETECTED; HUMAN METAPNEUMOVIRUS NOT DETECTED; INFLUENZA A- RESP PCR PANEL NOT DETECTED; INFLUENZA B - RESP PCR PANEL NOT DETECTED; M. PNEUMONIAE- RESP PCR PANEL NOT DETECTED; PARAINFLUENZA VIRUS 1 NOT DETECTED; PARAINFLUENZA VIRUS 2 NOT DETECTED; PARAINFLUENZA VIRUS 3 NOT DETECTED; PARAINFLUENZA VIRUS 4 NOT DETECTED; RHINOVIRUS/ENTEROVIRUS NOT DETECTED; RSV- RESP PCR PANEL NOT DETECTED; SARS-CoV-2 -RESP PCR PANEL NOT DETECTED
[2020-11-08] MEDS: NYSTATIN CREAM 15 GM TUBE TOP SCH (21:30)
[2020-11-08] MEDS: SODIUM CHLORIDE FLUSH 0.9% 10 ML SYRINGE IVP PRN (21:30)
[2020-11-08] MEDS: FUROSEMIDE 20 MG TABLET PO SCH (21:31)
[2020-11-08] MEDS: methylPREDNISolone SUCCINATE 40 MG/ML VIAL IVP SCH (21:31)
[2020-11-08] MEDS: ATORVASTATIN 40 MG TABLET PO SCH (21:31)
[2020-11-08] MEDS: SODIUM CHLORIDE FLUSH 0.9% 10 ML SYRINGE IVP SCH (23:41)
[2020-11-09] MEDS: methylPREDNISolone SUCCINATE 40 MG/ML VIAL IVP SCH ×3 (05:31→21:05)
[2020-11-09] MEDS: SODIUM CHLORIDE FLUSH 0.9% 10 ML SYRINGE IVP PRN ×3 (05:32→21:05)
--- NOTE | 2020-11-09 07:45 | PROVIDER PROGRESS NOTE ---
Assessment/Plan - Problem List (1) Atypical pneumonia Assessment/Plan: On Rocephin and azithromycin IV. Continue supplemental oxygen via nasal cannula 2 L. DuoNeb every 4 hours as needed. Solu-Medrol 40 mg IV 3 times daily for 6 doses only. (2) Acute on chronic respiratory failure with hypoxia Assessment/Plan: Likelyly multifactorial. Secondary to atypical pneumonia, COPD exacerbation, CHF and body habitus On Rocephin and azithromycin IV. Continue supplemental oxygen via nasal cannula 2 L. DuoNeb every 4 hours as needed. Solu-Medrol 40 mg IV 3 times daily for [address] was negative for PE or masses. (4) Morbid obesity with BMI of 45.0-49.9, adult Assessment/Plan: We will continue to advise diet and exercise (5) CHF, chronic Qualifiers: Heart failure type: unspecified Qualified Code(s): I50.9 - Heart failure, unspecified Assessment/Plan: Patient's BNP today was 1155 2D echocardiogram done on 09/16/20 showed overall left ventricular systolic function in the lower limits of normal with an ejection fraction of 50 to 55%. Anteroseptal, apical distal anterior wall segment hypokinesis was noted. The right ventricular size was normal. Moderate abnormal right heart pressures. RVSP at rest was 52 mmHg. Lasix 20 mg IV x1 was ordered. We will continue Lasix 20 mg p.o. twice daily. Continue patient's spironolactone, and lisinopril. We will hold patient's metoprolol for now due to bradycardia. (6) Thi rash of groin Assessment/Plan: Continue nystatin cream 1 application twice daily Diflucan 150mg po X1 given (7) Coronary artery disease Assessment/Plan: Patient is on aspirin, Plavix, atorvastatin and lisinopril. We will hold metoprolol for now due to bradycardia and resume when appropriate to do so. (8) Depression Qualifiers: Assessment/Plan: On sertraline 50 mg p.o. daily (9) HTN (hypertension) Assessment/Plan: Lasix, Spironolactone and lisinopril. Will resume metoprolol when appropriate to do so. - Current Meds Current Meds: Current Medications Generic Name Dose Route Start Last Admin Trade Name Freq PRN Reason Stop Dose Admin Atorvastatin Calcium 40 mg 11/08/20 21:00 11/08/20 21:31 Atorvastatin 40 Mg Tablet PO 40 mg QPM BETTYE Administration Furosemide 20 mg 11/08/20 21:00 11/08/20 21:31 Furosemide 20 Mg Tablet PO 20 mg BID BETTYE Administration Methylprednisolone 40 mg 11/08/20 22:00 11/09/20 05:31 Methylprednisolone Succinate 40 Mg/Ml Vial IVP 11/10/20 14:01 40 mg TID BETTYE Administration Nystatin 15 applic 11/08/20 21:00 11/08/20 21:30 Nystatin Cream 15 Gm Tube TOP 1 applic BID BETTYE Administration Sodium Chloride 10 ml 11/08/20 18:06 11/09/20 05:39 Sodium Chloride Flush 0.9% 10 Ml Syringe IVP 10 ml PRN PRN Administration NEEDED PER PROVIDER ORDERS Sodium Chloride 10 ml 11/09/20 01:00 11/08/20 23:41 Sodium Chloride Flush 0.9% 10 Ml Syringe IVP 10 ml 0100,0900,1700 BETTYE Administration - Lab Result Fish Bone Diagrams: 11/09/20 07:55 11/09/20 07:55 - Additional Planning My Orders: My Active Orders 11/08/20 18:06 Activity Orders [RC] Q2HR IO [RC] IOSHIFT Initiate Bowel Care Protocol [RC] .protocol Initiate Line Care [facility] [RC] [facility] Initiate Personal Care Protoco [RC] .protocol Oxygen Therapy [RC] .PRN Telemetry- [RC] Q4HR Vital Signs [RC] 0800,1600,0000 Acetaminophen [Tylenol] 650 mg PO Q6HR PRN HYDROcod/ACETAM 5/325 [[place]arreau 5/325] 1 tab PO Q4HR PRN Ondansetron Inj [Zofran Inj] 4 mg IVP Q6HR PRN Sodium Chloride Flush 0.9% [Normal Saline Flush 0.9%] 10 ml IVP PRN PRN Code Status [OTHERS] Routine Condition of Patient [OTHERS] Routine DVT Prophylaxis [OTHERS] Routine 11/08/20 18:08 SCDs [RC] QSHIFT 11/08/20 18:10 Ipratropium/Albuterol [Duoneb] 3 ml INH Q4HR PRN 11/08/20 18:11 Albuterol 2.5 mg INH Q4H PRN 11/08/20 21:00 Atorvastatin [Lipitor] 40 mg PO QPM Furosemide [Lasix] 20 mg PO BID Nystatin Cream [Mycostatin Cream] 15 applic TOP BID 11/08/20 22:00 methylPREDNISolone SUCCINATE [SOLU-Medrol (40MG VIAL)] 40 mg IVP TID 11/09/20 01:00 Sodium Chloride Flush 0.9% [Normal Saline Flush 0.9%] 10 ml IVP 0100,0900,1700 11/09/20 07:36 BMP - BASIC METABOLIC PANEL [CHEM] Routine CBC - COMP BLD CT W/AUTO DIFF [HEME] Routine 11/09/20 09:00 Aspirin EC [Ecotrin] 81 mg PO DAILY Azithromycin Inj [Zithromax Inj] 500 mg Sodium Chloride 0.9% [Normal Saline 0.9%] 250 ml IV DAILY Clopidogrel [Plavix] 75 mg PO DAILY Enoxaparin [Lovenox] 40 mg SUBQ DAILY FUROSEMIDE INJ 20mg VIAL [LASIX INJ 20mg VIAL] 20 mg IVP DAILY Fluconazole [Diflucan] 100 mg PO DAILY Sertraline [Zoloft] 50 mg PO DAILY Spironolactone [Aldactone] 25 mg PO DAILY cefTRIAXone [Rocephin] 1 gm Sodium Chloride 0.9% Minibag [Normal Saline 0.9% Minibag] 100 ml IV DAILY lisinopriL [Zestril] 10 mg PO DAILY 11/10/20 05:00 BMP - BASIC METABOLIC PANEL [CHEM] DAILYLAB BNP - B-NATRIURETIC PEPTIDE [IAI] DAILYLAB CBC - COMP BLD CT W/AUTO DIFF [HEME] DAILYLAB 11/11/20 05:00 BMP - BASIC METABOLIC PANEL [CHEM] DAILYLAB CBC - COMP BLD CT W/AUTO DIFF [HEME] DAILYLAB 11/12/20 05:00 BMP - BASIC METABOLIC PANEL [CHEM] DAILYLAB CBC - COMP BLD CT W/AUTO DIFF [HEME] DAILYLAB 11/13/20 05:00 BMP - BASIC METABOLIC PANEL [CHEM] DAILYLAB CBC - COMP BLD CT W/AUTO DIFF [HEME] DAILYLAB 11/14/20 05:00 BMP - BASIC METABOLIC PANEL [CHEM] DAILYLAB CBC - COMP BLD CT W/AUTO DIFF [HEME] DAILYLAB Subjective - Subjective Patient Reports: Other (Patient was resting comfortably in bed. She reported significant improvement in her breathing. On auscultation there was less restriction and air movement. Her wheezing had decreased significantly as well.) Objective Vital Signs: Vital Signs - 24 hr 11/08/20 11/08/20 11/08/20 13:45 13:57 15:49 Temperature 36.7 C Heart Rate 57 L 57 L 52 L Heart Rate [ Brachial] Respiratory 24 20 20 Rate Blood Pressure 141/53 H 157/62 H 111/85 H Blood Pressure [Left Brachial artery] O2 Saturation 90 L 94 94 11/08/20 11/08/20 11/08/20 17:00 18:48 20:55 Temperature 36.5 C 36.6 C 37.0 C Heart Rate 55 L Heart Rate [ 55 L 56 L Brachial] Respiratory 24 24 22 Rate Blood Pressure 137/68 H Blood Pressure 144/65 H 125/54 L [Left Brachial artery] O2 Saturation 94 95 93 11/09/20 00:00 Temperature 36.3 C L Heart Rate Heart Rate [ 47 L Brachial] Respiratory 24 Rate Blood Pressure Blood Pressure 117/55 L [Left Brachial artery] O2 Saturation 93 Oxygen O2 Source Nasal cannula Oxygen Flow Rate 2 I&O (Last 24 Hrs): Intake and Output Totals x24h 11/07/20 11/08/20 11/09/20 23:59 23:59 23:59 Intake Total 700 Output Total 700 200 Balance 0 -200 General: Alert, Oriented x3, Mild distress HEENT: PERRLA, EOMI Neck: Supple, No JVD Neuro: Alert, Non Focal, Oriented Times 3 Cardiovascular: Regular rate, Normal S1, Normal S2 Respiratory: Chest non-tender, Wheezes (mild) Abdomen: Normal bowel sounds, Soft Extremities: No clubbing, No cyanosis, No edema Skin: No rashes, No breakdown - Results Results: Laboratory Results WBC 13.6 x10^3/uL (4.8-10.8) H 11/08/20 13:58 RBC 5.34 10^6/uL (4.20-5.40) 11/08/20 13:58 Hgb 14.5 g/dL (12.0-16.0) 11/08/20 13:58 Hct 46.7 % (37.0-47.0) 11/08/20 13:58 MCV 87.5 fL (81.0-99.0) 11/08/20 13:58 MCH 27.2 pg (27.0-31.0) 11/08/20 13:58 MCHC 31.0 g/dL (32.0-36.0) L 11/08/20 13:58 RDW 14.4 % (12.0-15.0) 11/08/20 13:58 Plt Count 456 10^3/uL (130-450) H 11/08/20 13:58 MPV 10.9 fL (7.9-10.8) H 11/08/20 13:58 Neut # (Auto) 10.8 10^3/uL (1.5-6.6) H 11/08/20 13:58 Lymph # (Auto) 1.7 10^3/uL (1.5-3.5) 11/08/20 13:58 [place] # (Auto) 0.7 10^3/uL (0.0-1.0) 11/08/20 13:58 Eos # (Auto) 0.3 10^3/uL (0.0-0.7) 11/08/20 13:58 Baso # (Auto) 0.1 10^3/uL (0.0-0.1) 11/08/20 13:58 Absolute Nucleated RBC 0.00 x10^3/uL 11/08/20 13:58 Nucleated RBC % 0.0 /100WBC 11/08/20 13:58 D-Dimer 439.0 ng/mL (200.0-255.0) H 11/08/20 13:58 VBG pH 7.374 (7.31-7.41) 11/08/20 14:38 VBG pCO2 51.2 mmHg (41-51) H 11/08/20 14:38 VBG pO2 28.5 mmHg (25-47) 11/08/20 14:38 VBG HCO3 29.2 mmol/L (23-28) H 11/08/20 14:38 VBG Total CO2 30.8 mmol/L (24-29) H 11/08/20 14:38 VBG O2 Saturation 57.7 % (60-80) L 11/08/20 14:38 VBG Base Excess 2.9 mmol/L (-2 - +2) H 11/08/20 14:38 Sodium 138 mmol/L (135-145) 11/08/20 13:58 Potassium 4.0 mmol/L (3.5-5.0) 11/08/20 13:58 Chloride 100 mmol/L (101-111) L 11/08/20 13:58 Carbon Dioxide 27 mmol/L (21-32) 11/08/20 13:58 Anion Gap 11.0 (6-13) 11/08/20 13:58 BUN 14 mg/dL (6-20) 11/08/20 13:58 Creatinine 0.8 mg/dL (0.4-1.0) 11/08/20 13:58 Estimated GFR (MDRD) 71 (>89) L 11/08/20 13:58 Glucose 147 mg/dL (70-100) H 11/08/20 13:58 Calcium 8.9 mg/dL (8.5-10.3) 11/08/20 13:58 Total Bilirubin 0.9 mg/dL (0.2-1.0) 11/08/20 13:58 AST 15 IU/L (10-42) 11/08/20 13:58 ALT 16 IU/L (10-60) 11/08/20 13:58 Alkaline Phosphatase 103 IU/L (42-121) 11/08/20 13:58 Troponin I High Sens 11.4 ng/L (2.3-14.8) 11/08/20 13:58 B-Natriuretic Peptide 1155 pg/mL (5-100) H 11/09/20 05:12 Total Protein 7.7 g/dL (6.7-8.2) 11/08/20 13:58 Albumin 3.7 g/dL (3.2-5.5) 11/08/20 13:58 Globulin 4.0 g/dL (2.1-4.2) 11/08/20 13:58 Albumin/Globulin Ratio 0.9 (1.0-2.2) L 11/08/20 13:58 Lipase 21 U/L (22-51) L 11/08/20 13:58 Nasal Adenovirus (PCR) NOT DETECTED 11/08/20 17:43 Nasal B. parapertussis DNA (PCR) NOT DETECTED 11/08/20 17:43 Nasal Coronavir 229E PCR NOT DETECTED 11/08/20 17:43 Nasal Coronavir HKU1 PCR NOT DETECTED 11/08/20 17:43 Nasal Coronavir NL63 PCR NOT DETECTED 11/08/20 17:43 Nasal Coronavir OC43 PCR NOT DETECTED 11/08/20 17:43 Nasal Enterovir/Rhinovir PCR NOT DETECTED 11/08/20 17:43 Nasal Influenza B PCR NOT DETECTED 11/08/20 17:43 Nasal Influenza A PCR NOT DETECTED 11/08/20 17:43 Nasal Parainfluen 1 PCR NOT DETECTED 11/08/20 17:43 Nasal Parainfluen 2 PCR NOT DETECTED 11/08/20 17:43 Nasal Parainfluen 3 PCR NOT DETECTED 11/08/20 17:43 Nasal Parainfluen 4 PCR NOT DETECTED 11/08/20 17:43 Nasal RSV (PCR) NOT DETECTED 11/08/20 17:43 Nasal B.pertussis DNA PCR NOT DETECTED 11/08/20 17:43 Nasal C.pneumoniae (PCR) NOT DETECTED 11/08/20 17:43 [place] Human Metapneumo PCR NOT DETECTED 11/08/20 17:43 Nasal M.pneumoniae (PCR) NOT DETECTED 11/08/20 17:43 Nasal SARS-CoV-2 (PCR) NOT DETECTED 11/08/20 17:43 ABX Reporting Has patient been on IV antibiotics over the past 48 hours?: Yes
[2020-11-09 08:03] LABS: BASOPHILS % (AUTO) 0.2 %; HCT - HEMATOCRIT 43.8 % (37.0-47.0); HGB - HEMOGLOBIN 13.8 g/dL (12.0-16.0); LYMPHOCYTES # (AUTO) 0.8 10^3/uL (1.5-3.5); LYMPHOCYTES % (AUTO) 6.3 %; MEAN CORPUSCULAR HEMOGLOBIN 27.2 pg (27.0-31.0); MEAN CORPUSCULAR HGB CONC 31.5 g/dL (32.0-36.0); MEAN CORPUSCULAR VOLUME 86.2 fL (81.0-99.0); MEAN PLATELET VOLUME 10.8 fL (7.9-10.8); MONOCYTES # (AUTO) 0.1 10^3/uL (0.0-1.0); MONOCYTES % (AUTO) 0.5 %; NEUTROPHILS # (AUTO) 11.5 10^3/uL (1.5-6.6); NEUTROPHILS % (AUTO) 92.6 %; PLT - PLATELET COUNT 383 10^3/uL (130-450); RED BLOOD COUNT 5.08 10^6/uL (4.20-5.40); RED CELL DISTRIBUTION WIDTH 14.1 % (12.0-15.0); WHITE BLOOD COUNT 12.4 x10^3/uL (4.8-10.8)
[2020-11-09 08:09] LABS: CALCIUM 8.9 mg/dL (8.5-10.3); CREATININE 0.9 mg/dL (0.4-1.0); POTASSIUM 4.3 mmol/L (3.5-5.0)
[2020-11-09] MEDS: cefTRIAXone 1 GM in SODIUM CHLORIDE 0.9% MINIBAG 100 ML IV SCH (08:22)
[2020-11-09] MEDS: lisinopriL 5 MG TABLET PO SCH (08:22)
[2020-11-09] MEDS: SERTRALINE 50 MG TABLET PO SCH (08:23)
[2020-11-09] MEDS: FUROSEMIDE 20 MG TABLET PO SCH ×2 (08:23→21:05)
[2020-11-09] MEDS: SPIRONOLACTONE 25 MG TABLET PO SCH (08:23)
[2020-11-09] MEDS: ASPIRIN EC 81 MG TABLET PO SCH (08:23)
[2020-11-09] MEDS: NYSTATIN CREAM 15 GM TUBE TOP SCH ×2 (08:24→21:05)
[2020-11-09] MEDS: CLOPIDOGREL 75 MG TABLET PO SCH (08:24)
[2020-11-09] MEDS: ENOXAPARIN 40 MG/0.4 ML SYRINGE SUBQ SCH (08:26)
[2020-11-09] MEDS: FUROSEMIDE 20 MG/2 ML VIAL IVP SCH (08:26)
[2020-11-09] MEDS: AZITHROMYCIN INJ 500 MG in SODIUM CHLORIDE 0.9% 250 ML IV SCH (09:49)
[2020-11-09] MEDS: SODIUM CHLORIDE FLUSH 0.9% 10 ML SYRINGE IVP SCH ×3 (09:50→23:44)
[2020-11-09] MEDS ORDERED: FLUCONAZOLE 100 MG TABLET PO SCH (10:00)
--- NOTE | 2020-11-09 10:38 | PHARMACY PROGRESS NOTE ---
- Best Possible Medication History Admit Date and Time: 11/08/20 180 Processed by: Pharmacy Medication History completed: Yes Patient Interview: Completed Secondary Source(s): Pharmacy records, Insurance records As the person ultimately responsible for medication therapy, providers are able to order a medication from an existing home medication list in [facility] via the "Reconcile Routine" prior to Confirmation of that medication by network and threat support specialist. Such practice is discouraged except when the physician, in their clinical judgment, deems that a medical need exists for a medication without regard to previous use.
[2020-11-09] MEDS ORDERED: methylPREDNISolone SUCCINATE 40 MG/ML VIAL ONE ×2 (15:08→21:05)
[2020-11-09] MEDS ORDERED: SODIUM CHLORIDE FLUSH 0.9% 10 ML SYRINGE IVP ONE ×2 (16:04→21:06)
[2020-11-09] MEDS: ATORVASTATIN 40 MG TABLET PO SCH (21:05)
[2020-11-09] MEDS ORDERED: ATORVASTATIN 40 MG TABLET ONE (21:05)
[2020-11-09] MEDS ORDERED: FUROSEMIDE 20 MG TABLET ONE (21:05)
[2020-11-10] MEDS ORDERED: methylPREDNISolone SUCCINATE 40 MG/ML VIAL ONE (04:55)
[2020-11-10 05:04] LABS: BASOPHILS % (AUTO) 0.2 %; HCT - HEMATOCRIT 42.6 % (37.0-47.0); HGB - HEMOGLOBIN 13.2 g/dL (12.0-16.0); LYMPHOCYTES % (AUTO) 4.8 %; MEAN CORPUSCULAR HEMOGLOBIN 26.9 pg (27.0-31.0); MEAN CORPUSCULAR VOLUME 86.8 fL (81.0-99.0); MEAN PLATELET VOLUME 11.1 fL (7.9-10.8); MONOCYTES % (AUTO) 1.4 %; NEUTROPHILS % (AUTO) 92.8 %; PLT - PLATELET COUNT 395 10^3/uL (130-450); RED BLOOD COUNT 4.91 10^6/uL (4.20-5.40); RED CELL DISTRIBUTION WIDTH 14.1 % (12.0-15.0); WHITE BLOOD COUNT 22.2 x10^3/uL (4.8-10.8)
[2020-11-10] MEDS: methylPREDNISolone SUCCINATE 40 MG/ML VIAL IVP SCH ×2 (05:09→13:45)
[2020-11-10 05:10] LABS: ABNORMAL LYMPHS % (MANUAL) 0 %
[2020-11-10] MEDS: SODIUM CHLORIDE FLUSH 0.9% 10 ML SYRINGE IVP PRN (05:10)
[2020-11-10 05:14] LABS: CALCIUM 8.8 mg/dL (8.5-10.3); CREATININE 0.9 mg/dL (0.4-1.0); POTASSIUM 4.3 mmol/L (3.5-5.0)
[2020-11-10 05:49] LABS: BAND NEUTROPHILS % (MANUAL) 1 %; DIFFERENTIAL COMMENT MANUAL DIFFERENTIAL; LYMPHOCYTES % (MANUAL) 9 %; MONOCYTES # (MANUAL) 0.2 10^3/uL (0.0-1.0); PLATELET ESTIMATE, MANUAL NORMAL (130-450,000) (NORMAL); RBC MORPHOLOGY (MULTIPLE) NORMAL APPEARANCE (NORMAL)
--- NOTE | 2020-11-10 07:51 | PROVIDER PROGRESS NOTE ---
Assessment/Plan - Problem List (1) Atypical pneumonia Assessment/Plan: On Rocephin and azithromycin IV. Continue supplemental oxygen via nasal cannula 2 L. DuoNeb every 4 hours as needed. Solu-Medrol 40 mg IV 3 times daily for 6 doses only. Anticipated discharge 11/11/20 (2) Acute on chronic respiratory failure with hypoxia Assessment/Plan: Likelyly multifactorial. Secondary to atypical pneumonia, COPD exacerbation, CHF and body habitus On Rocephin and azithromycin IV. Continue supplemental oxygen via nasal cannula 2 L. DuoNeb every 4 hours as needed. Solu-Medrol 40 mg IV 3 times daily for [address] was negative for PE or masses. (4) Morbid obesity with BMI of 45.0-49.9, adult Assessment/Plan: We will continue to advise diet and exercise (5) CHF, chronic Qualifiers: Heart failure type: unspecified Qualified Code(s): I50.9 - Heart failure, unspecified Assessment/Plan: Patient's BNP trend was 1095 > 1155 > 924 2D echocardiogram done on 09/16/20 showed overall left ventricular systolic function in the lower limits of normal with an ejection fraction of 50 to 55%. Anteroseptal, apical distal anterior wall segment hypokinesis was noted. The right ventricular size was normal. Moderate abnormal right heart pressures. RVSP at rest was 52 mmHg. Lasix 20 mg IV x1 was ordered. We will continue Lasix 20 mg p.o. twice daily. Continue patient's spironolactone, and lisinopril. We will hold patient's metoprolol for now due to bradycardia. (6) Thi rash of groin Assessment/Plan: Continue nystatin cream 1 application twice daily Diflucan 150mg po X1 given (7) Coronary artery disease Assessment/Plan: Patient is on aspirin, Plavix, atorvastatin and lisinopril. We will hold metoprolol for now due to bradycardia and resume when appropriate to do so. (8) Depression Qualifiers: Assessment/Plan: On sertraline 50 mg p.o. daily (9) HTN (hypertension) Assessment/Plan: Lasix, Spironolactone and lisinopril. Will resume metoprolol when appropriate to do so. (10) Leukocytosis Assessment/Plan: WBC elevated from 12.4 to 22.2 This is likely 2/2 solumedrol administration. - Current Meds Current Meds: Current Medications Generic Name Dose Route Start Last Admin Trade Name Freq PRN Reason Stop Dose Admin Aspirin 81 mg 11/09/20 09:00 11/09/20 08:23 Aspirin Ec 81 Mg Tablet PO 81 mg DAILY BETTYE Administration Atorvastatin Calcium 40 mg 11/08/20 21:00 11/09/20 21:05 Atorvastatin 40 Mg Tablet PO 40 mg QPM BETTYE Administration Clopidogrel Bisulfate 75 mg 11/09/20 09:00 11/09/20 08:24 Clopidogrel 75 Mg Tablet PO 75 mg DAILY BETTYE Administration Enoxaparin Sodium 40 mg 11/09/20 09:00 11/09/20 08:26 Enoxaparin 40 Mg/0.4 Ml Syringe SUBQ 40 mg DAILY BETTYE Administration Furosemide 20 mg 11/08/20 21:00 11/09/20 21:05 Furosemide 20 Mg Tablet PO 20 mg BID BETTYE Administration Furosemide 20 mg 11/09/20 09:00 11/09/20 08:26 Furosemide 20 Mg/2 Ml Vial IVP 20 mg DAILY BETTYE Administration Ceftriaxone Sodium 1 gm/ 100 mls @ 200 mls/hr 11/09/20 09:00 11/09/20 08:55 Sodium Chloride IV Infused DAILY BETTYE Infusion Azithromycin 500 mg/ Sodium 250 mls @ 250 mls/hr 11/09/20 09:00 11/09/20 11:13 Chloride IV 11/10/20 09:59 Infused DAILY BETTYE Infusion Lisinopril 10 mg 11/09/20 09:00 11/09/20 08:22 Lisinopril 5 Mg Tablet PO 10 mg DAILY BETTYE Administration Methylprednisolone 40 mg 11/08/20 22:00 11/10/20 05:09 Methylprednisolone Succinate 40 Mg/Ml Vial IVP 11/10/20 14:01 40 mg TID BETTYE Administration Nystatin 15 applic 11/08/20 21:00 11/09/20 21:05 Nystatin Cream 15 Gm Tube TOP 1 applic BID BETTYE Administration Sertraline HCl 50 mg 11/09/20 09:00 11/09/20 08:23 Sertraline 50 Mg Tablet PO 50 mg DAILY BETTYE Administration Sodium Chloride 10 ml 11/08/20 18:06 11/10/20 05:10 Sodium Chloride Flush 0.9% 10 Ml Syringe IVP 10 ml PRN PRN Administration NEEDED PER PROVIDER ORDERS Sodium Chloride 10 ml 11/09/20 01:00 11/09/20 23:44 Sodium Chloride Flush 0.9% 10 Ml Syringe IVP 10 ml 0100,0900,1700 BETTYE Administration Spironolactone 25 mg 11/09/20 09:00 11/09/20 08:23 Spironolactone 25 Mg Tablet PO 25 mg DAILY BETTYE Administration - Lab Result Fish Bone Diagrams: 11/10/20 04:44 11/10/20 04:44 - Additional Planning My Orders: My Active Orders 11/09/20 09:00 Aspirin EC [Ecotrin] 81 mg PO DAILY Azithromycin Inj [Zithromax Inj] 500 mg Sodium Chloride 0.9% [Normal Saline 0.9%] 250 ml IV DAILY Clopidogrel [Plavix] 75 mg PO DAILY Enoxaparin [Lovenox] 40 mg SUBQ DAILY FUROSEMIDE INJ 20mg VIAL [LASIX INJ 20mg VIAL] 20 mg IVP DAILY Sertraline [Zoloft] 50 mg PO DAILY Spironolactone [Aldactone] 25 mg PO DAILY cefTRIAXone [Rocephin] 1 gm Sodium Chloride 0.9% Minibag [Normal Saline 0.9% Minibag] 100 ml IV DAILY lisinopriL [Zestril] 10 mg PO DAILY 11/11/20 05:00 BMP - BASIC METABOLIC PANEL [CHEM] DAILYLAB CBC - COMP BLD CT W/AUTO DIFF [HEME] DAILYLAB 11/12/20 05:00 BMP - BASIC METABOLIC PANEL [CHEM] DAILYLAB CBC - COMP BLD CT W/AUTO DIFF [HEME] DAILYLAB 11/13/20 05:00 BMP - BASIC METABOLIC PANEL [CHEM] DAILYLAB CBC - COMP BLD CT W/AUTO DIFF [HEME] DAILYLAB 11/14/20 05:00 BMP - BASIC METABOLIC PANEL [CHEM] DAILYLAB CBC - COMP BLD CT W/AUTO DIFF [HEME] DAILYLAB Subjective - Subjective Patient Reports: Other (Resting comfortably in bed. She denied any significant complaints today. The rest of the visit was unremarkable.) Objective Vital Signs: Vital Signs - 24 hr 11/09/20 11/09/20 11/09/20 08:00 16:00 19:38 Temperature 36.4 C L 36.4 C L 36.3 C L Heart Rate [ 50 L 56 L 52 L Brachial] Respiratory 20 24 22 Rate Blood Pressure 138/52 H 114/88 H 137/63 H [Left Brachial artery] O2 Saturation 99 95 98 11/10/20 11/10/20 00:00 05:00 Temperature 36.4 C L 36.3 C L Heart Rate [ 48 L 47 L Brachial] Respiratory 18 18 Rate Blood Pressure 123/63 132/63 H [Left Brachial artery] O2 Saturation 97 97 Oxygen O2 Source Nasal cannula Oxygen Flow Rate 2 I&O (Last 24 Hrs): Intake and Output Totals x24h 11/08/20 11/09/20 11/10/20 23:59 23:59 23:59 Intake Total 700 2030 Output Total 700 1550 600 Balance 0 480 -600 General: Alert, Oriented x3, No acute distress HEENT: PERRLA, EOMI Neck: Supple, No JVD Neuro: Alert, Non Focal, Oriented Times 3 Cardiovascular: Regular rate, Normal S1, Normal S2, No murmurs Respiratory: Chest non-tender, No respiratory distress, Wheezes (mild wheeze) Abdomen: Normal bowel sounds, Soft, No tenderness Extremities: No clubbing, Other (Trace) Skin: No rashes, No breakdown - Results Results: Laboratory Results WBC 22.2 x10^3/uL (4.8-10.8) H 11/10/20 04:44 RBC 4.91 10^6/uL (4.20-5.40) 11/10/20 04:44 Hgb 13.2 g/dL (12.0-16.0) 11/10/20 04:44 Hct 42.6 % (37.0-47.0) 11/10/20 04:44 MCV 86.8 fL (81.0-99.0) 11/10/20 04:44 MCH 26.9 pg (27.0-31.0) L 11/10/20 04:44 MCHC 31.0 g/dL (32.0-36.0) L 11/10/20 04:44 RDW 14.1 % (12.0-15.0) 11/10/20 04:44 Plt Count 395 10^3/uL (130-450) 11/10/20 04:44 MPV 11.1 fL (7.9-10.8) H 11/10/20 04:44 Neut # (Auto) Not Reportable 11/10/20 04:44 Lymph # (Auto) Not Reportable 11/10/20 04:44 [place] # (Auto) Not Reportable 11/10/20 04:44 Eos # (Auto) Not Reportable 11/10/20 04:44 Baso # (Auto) Not Reportable 11/10/20 04:44 Absolute Nucleated RBC Not Reportable 11/10/20 04:44 Total Counted 100 11/10/20 04:44 Band Neuts % (Manual) 1 % (0-10) 11/10/20 04:44 Abnorm Lymph % (Manual) 0 % 11/10/20 04:44 Nucleated RBC % Not Reportable 11/10/20 04:44 Neutrophils # (Manual) 20.0 10^3/uL (1.5-6.6) H 11/10/20 04:44 Lymphocytes # (Manual) 2.0 10^3/uL (1.5-3.5) 11/10/20 04:44 Monocytes # (Manual) 0.2 10^3/uL (0.0-1.0) 11/10/20 04:44 Eosinophils # (Manual) 0.0 10^3/uL (0-0.7) 11/10/20 04:44 Basophils # (Manual) 0.0 10^3/uL (0-0.1) 11/10/20 04:44 Differential Comment MANUAL DIFFERENTIAL 11/10/20 04:44 Platelet Estimate NORMAL (130-450,000) (NORMAL) 11/10/20 04:44 RBC Morph Micro Appear NORMAL APPEARANCE (NORMAL) 11/10/20 04:44 D-Dimer 439.0 ng/mL (200.0-255.0) H 11/08/20 13:58 VBG pH 7.374 (7.31-7.41) 11/08/20 14:38 VBG pCO2 51.2 mmHg (41-51) H 11/08/20 14:38 VBG pO2 28.5 mmHg (25-47) 11/08/20 14:38 VBG HCO3 29.2 mmol/L (23-28) H 11/08/20 14:38 VBG Total CO2 30.8 mmol/L (24-29) H 11/08/20 14:38 VBG O2 Saturation 57.7 % (60-80) L 11/08/20 14:38 VBG Base Excess 2.9 mmol/L (-2 - +2) H 11/08/20 14:38 Sodium 134 mmol/L (135-145) L 11/10/20 04:44 Potassium 4.3 mmol/L (3.5-5.0) 11/10/20 04:44 Chloride 97 mmol/L (101-111) L 11/10/20 04:44 Carbon Dioxide 28 mmol/L (21-32) 11/10/20 04:44 Anion Gap 9.0 (6-13) 11/10/20 04:44 BUN 27 mg/dL (6-20) H 11/10/20 04:44 Creatinine 0.9 mg/dL (0.4-1.0) 11/10/20 04:44 Estimated GFR (MDRD) 62 (>89) L 11/10/20 04:44 Glucose 208 mg/dL (70-100) H 11/10/20 04:44 Calcium 8.8 mg/dL (8.5-10.3) 11/10/20 04:44 Total Bilirubin 0.9 mg/dL (0.2-1.0) 11/08/20 13:58 AST 15 IU/L (10-42) 11/08/20 13:58 ALT 16 IU/L (10-60) 11/08/20 13:58 Alkaline Phosphatase 103 IU/L (42-121) 11/08/20 13:58 Troponin I High Sens 11.4 ng/L (2.3-14.8) 11/08/20 13:58 B-Natriuretic Peptide 927 pg/mL (5-100) H 11/10/20 04:44 Total Protein 7.7 g/dL (6.7-8.2) 11/08/20 13:58 Albumin 3.7 g/dL (3.2-5.5) 11/08/20 13:58 Globulin 4.0 g/dL (2.1-4.2) 11/08/20 13:58 Albumin/Globulin Ratio 0.9 (1.0-2.2) L 11/08/20 13:58 Lipase 21 U/L (22-51) L 11/08/20 13:58 Nasal Adenovirus (PCR) NOT DETECTED 11/08/20 17:43 Nasal B. parapertussis DNA (PCR) NOT DETECTED 11/08/20 17:43 Nasal Coronavir 229E PCR NOT DETECTED 11/08/20 17:43 Nasal Coronavir HKU1 PCR NOT DETECTED 11/08/20 17:43 Nasal Coronavir NL63 PCR NOT DETECTED 11/08/20 17:43 Nasal Coronavir OC43 PCR NOT DETECTED 11/08/20 17:43 Nasal Enterovir/Rhinovir PCR NOT DETECTED 11/08/20 17:43 Nasal Influenza B PCR NOT DETECTED 11/08/20 17:43 Nasal Influenza A PCR NOT DETECTED 11/08/20 17:43 Nasal Parainfluen 1 PCR NOT DETECTED 11/08/20 17:43 Nasal Parainfluen 2 PCR NOT DETECTED 11/08/20 17:43 Nasal Parainfluen 3 PCR NOT DETECTED 11/08/20 17:43 Nasal Parainfluen 4 PCR NOT DETECTED 11/08/20 17:43 Nasal RSV (PCR) NOT DETECTED 11/08/20 17:43 Nasal B.pertussis DNA PCR NOT DETECTED 11/08/20 17:43 Nasal C.pneumoniae (PCR) NOT DETECTED 11/08/20 17:43 [place] Human Metapneumo PCR NOT DETECTED 11/08/20 17:43 Nasal M.pneumoniae (PCR) NOT DETECTED 11/08/20 17:43 Nasal SARS-CoV-2 (PCR) NOT DETECTED 11/08/20 17:43 ABX Reporting Has patient been on IV antibiotics over the past 48 hours?: Yes
[2020-11-10] MEDS: cefTRIAXone 1 GM in SODIUM CHLORIDE 0.9% MINIBAG 100 ML IV SCH (08:06)
[2020-11-10] MEDS: FUROSEMIDE 20 MG/2 ML VIAL IVP SCH (08:09)
[2020-11-10] MEDS: lisinopriL 5 MG TABLET PO SCH (08:12)
[2020-11-10] MEDS: FUROSEMIDE 20 MG TABLET PO SCH ×2 (08:12→16:30)
[2020-11-10] MEDS: ASPIRIN EC 81 MG TABLET PO SCH (08:13)
[2020-11-10] MEDS: NYSTATIN CREAM 15 GM TUBE TOP SCH ×2 (08:13→20:38)
[2020-11-10] MEDS: SERTRALINE 50 MG TABLET PO SCH (08:13)
[2020-11-10] MEDS: SPIRONOLACTONE 25 MG TABLET PO SCH (08:13)
[2020-11-10] MEDS: CLOPIDOGREL 75 MG TABLET PO SCH (08:13)
[2020-11-10] MEDS: ENOXAPARIN 40 MG/0.4 ML SYRINGE SUBQ SCH (08:13)
[2020-11-10] MEDS: SODIUM CHLORIDE FLUSH 0.9% 10 ML SYRINGE IVP SCH ×2 (08:14→16:30)
[2020-11-10] MEDS: AZITHROMYCIN INJ 500 MG in SODIUM CHLORIDE 0.9% 250 ML IV SCH (08:19)
[2020-11-10] MEDS: ATORVASTATIN 40 MG TABLET PO SCH (20:37)
[2020-11-11] MEDS: SODIUM CHLORIDE FLUSH 0.9% 10 ML SYRINGE IVP SCH ×3 (00:08→17:50)
[2020-11-11 05:50] LABS: BASOPHILS % (AUTO) 0.2 %; HCT - HEMATOCRIT 43.9 % (37.0-47.0); HGB - HEMOGLOBIN 13.7 g/dL (12.0-16.0); LYMPHOCYTES % (AUTO) 5.5 %; MEAN CORPUSCULAR HGB CONC 31.2 g/dL (32.0-36.0); MEAN CORPUSCULAR VOLUME 86.4 fL (81.0-99.0); MEAN PLATELET VOLUME 11.1 fL (7.9-10.8); MONOCYTES % (AUTO) 3.7 %; NEUTROPHILS % (AUTO) 89.6 %; PLT - PLATELET COUNT 411 10^3/uL (130-450); RED BLOOD COUNT 5.08 10^6/uL (4.20-5.40); RED CELL DISTRIBUTION WIDTH 14.3 % (12.0-15.0); WHITE BLOOD COUNT 22.9 x10^3/uL (4.8-10.8)
[2020-11-11 05:53] LABS: ABNORMAL LYMPHS % (MANUAL) 0 %; BAND NEUTROPHILS % (MANUAL) 0 %
[2020-11-11 05:58] LABS: CREATININE 0.8 mg/dL (0.4-1.0); POTASSIUM 4.6 mmol/L (3.5-5.0)
[2020-11-11] MEDS: FUROSEMIDE 20 MG TABLET PO SCH ×2 (05:59→13:59)
[2020-11-11 06:27] LABS: DIFFERENTIAL COMMENT MANUAL DIFFERENTIAL; LYMPHOCYTES % (MANUAL) 13 %; MONOCYTES # (MANUAL) 2.1 10^3/uL (0.0-1.0); NEUTROPHILS # (MANUAL) 17.9 10^3/uL (1.5-6.6); PLATELET ESTIMATE, MANUAL NORMAL (130-450,000) (NORMAL); RBC MORPHOLOGY (MULTIPLE) NORMAL APPEARANCE (NORMAL)
[2020-11-11] MEDS: ENOXAPARIN 40 MG/0.4 ML SYRINGE SUBQ SCH (09:24)
[2020-11-11] MEDS: CLOPIDOGREL 75 MG TABLET PO SCH (09:24)
[2020-11-11] MEDS: SPIRONOLACTONE 25 MG TABLET PO SCH (09:24)
[2020-11-11] MEDS: SERTRALINE 50 MG TABLET PO SCH (09:24)
[2020-11-11] MEDS: cefTRIAXone 1 GM in SODIUM CHLORIDE 0.9% MINIBAG 100 ML IV SCH (09:24)
[2020-11-11] MEDS: ASPIRIN EC 81 MG TABLET PO SCH (09:24)
[2020-11-11] MEDS: lisinopriL 5 MG TABLET PO SCH (09:24)
[2020-11-11] MEDS: NYSTATIN CREAM 15 GM TUBE TOP SCH ×2 (10:22→21:14)
[2020-11-11] MEDS ORDERED: FUROSEMIDE 40 MG/4 ML VIAL IVP STA (10:26)
--- NOTE | 2020-11-11 10:26 | PROVIDER PROGRESS NOTE ---
Subjective - Prog Note Date Prog Note Date: 11/11/20 - Subjective Subjective: She denies any dyspnea at rest but still feels quite short of breath with minimal exertion. She does not feel better compared to her initial arrival to the emergency department. She reports her symptoms have been going on now for quite a few weeks. She does have an occasional cough but her biggest complaint is the dyspnea when she ambulates. She does not report any lower extremity edema. She does complain of orthopnea. Current Medications - Current Medications Current Medications: Active Medications Acetaminophen (Acetaminophen 325 Mg Tablet) 650 mg PO Q6HR PRN PRN Reason: Pain 1 to 4 Hydrocodone Bitart/Acetaminophen (Hydrocod/Acetam 5/325 Mg Tablet) 1 tab PO Q4HR PRN PRN Reason: Pain 5 to 7 Albuterol (Albuterol Neb 2.5 Mg/3 Ml) 2.5 mg INH Q4H PRN PRN Reason: Wheezing Albuterol/Ipratropium (Ipratropium/Albuterol 3 Ml Neb) 3 ml INH Q4HR PRN PRN Reason: Wheezing Last Admin: 11/10/20 11:05 Dose: 3 ml Documented by: Aspirin (Aspirin Ec 81 Mg Tablet) 81 mg PO DAILY [facility] Last Admin: 11/11/20 09:24 Dose: 81 mg Documented by: Atorvastatin Calcium (Atorvastatin 40 Mg Tablet) 40 mg PO QPM [facility] Last Admin: 11/10/20 20:37 Dose: 40 mg Documented by: Clopidogrel Bisulfate (Clopidogrel 75 Mg Tablet) 75 mg PO DAILY [facility] Last Admin: 11/11/20 09:24 Dose: 75 mg Documented by: Enoxaparin Sodium (Enoxaparin 40 Mg/0.4 Ml Syringe) 40 mg SUBQ DAILY [facility] Last Admin: 11/11/20 09:24 Dose: 40 mg Documented by: Furosemide (Furosemide 20 Mg Tablet) 20 mg PO BIDDIURETIC [facility] Last Admin: 11/11/20 05:59 Dose: 20 mg Documented by: Ceftriaxone Sodium 1 gm/ (Sodium Chloride) 100 mls @ 200 mls/hr IV DAILY [facility] Last Infusion: 11/11/20 10:21 Dose: Infused Documented by: Insulin Aspart (Insulin Aspart 300 Unit/3 Ml Pen) 1 - 9 unit SUBQ 0800,1200,1700,2100 [facility]; Protocol Last Admin: 11/11/20 12:49 Dose: 5 unit Documented by: Lisinopril (Lisinopril 5 Mg Tablet) 10 mg PO DAILY [facility] Last Admin: 11/11/20 09:24 Dose: 10 mg Documented by: Nystatin (Nystatin Cream 15 Gm Tube) 15 applic TOP BID [facility] Last Admin: 11/11/20 10:22 Dose: Not Given Documented by: Ondansetron HCl (Ondansetron 4 Mg/2 Ml Vial) 4 mg IVP Q6HR PRN PRN Reason: Nausea / Vomiting Sertraline HCl (Sertraline 50 Mg Tablet) 50 mg PO DAILY [facility] Last Admin: 11/11/20 09:24 Dose: 50 mg Documented by: Sodium Chloride (Sodium Chloride Flush 0.9% 10 Ml Syringe) 10 ml IVP PRN PRN PRN Reason: NEEDED PER PROVIDER ORDERS Last Admin: 11/10/20 05:10 Dose: 10 ml Documented by: Sodium Chloride (Sodium Chloride Flush 0.9% 10 Ml Syringe) 10 ml IVP 0100,0900,1700 [facility] Last Admin: 11/11/20 09:25 Dose: 10 ml Documented by: Spironolactone (Spironolactone 25 Mg Tablet) 25 mg PO DAILY [facility] Last Admin: 11/11/20 09:24 Dose: 25 mg Documented by: Aspirin [Aspirin EC] 81 mg PO DAILY 06/22/19 Atorvastatin Calcium 40 mg PO QPM 06/22/19 Clopidogrel Bisulfate [Clopidogrel] 75 mg PO DAILY 06/22/19 Metoprolol Succinate [Toprol Xl] 50 mg PO DAILY 06/22/19 Nitroglycerin 0.4 mg SL Q5M PRN 06/22/19 lisinopriL [Lisinopril] 10 mg PO DAILY 12/01/19 Furosemide [Lasix] 20 mg PO BID 06/11/20 Sertraline [Zoloft] 50 mg PO DAILY 06/11/20 Spironolactone [Aldactone] 25 mg PO DAILY 06/11/20 Objective - Vital Signs/Intake & Output Reviewed Vital Signs: Yes Vital Signs: Vital Signs x48h Temp Pulse Resp BP BP Pulse Ox 11/11/20 09:00 36.5 C 51 L 17 142/75 H 97 11/11/20 05:55 36.4 C L 50 L 18 153/61 H 96 Intake & Output: Intake & Output 11/08/20 11/09/20 11/10/20 11/11/20 23:59 23:59 23:59 23:59 Intake Total 700 2030 2130.000 340 Output Total 700 1550 1650 900 Balance 0 480 480.000 -560 - Objective General Appearance: positive: No acute distress, Alert Eyes Bilateral: positive: Normal inspection, Conjunctivae nml ENT: positive: ENT inspection nml, Other (Nasal cannula in place.) Neck: positive: Nml inspection Respiratory: positive: No respiratory distress, Other (Diminished bilaterally.). negative: Wheezes, Rales Cardiovascular: positive: No murmur, Bradycardia. negative: Irregularly irregular, Tachycardia, Systolic murmur Abdomen: positive: Non-tender, No distention. negative: Tenderness Skin: positive: Warm, Dry Extremities: positive: Pedal edema (+1 pitting edema in bilateral lower extremities.) Neurologic/Psychiatric: positive: Motor nml. negative: Disoriented to person, Disoriented to place - Lab Results Fish Bones: 11/11/20 05:34 11/11/20 05:34 Other Labs: Lab Results x24hrs 11/11/20 11/11/20 Range/Units 05:34 05:34 WBC 22.9 H (4.8-10.8) x10^3/uL RBC 5.08 (4.20-5.40) 10^6/uL Hgb 13.7 (12.0-16.0) g/dL Hct 43.9 (37.0-47.0) % MCV 86.4 (81.0-99.0) fL MCH 27.0 (27.0-31.0) pg MCHC 31.2 L (32.0-36.0) g/dL RDW 14.3 (12.0-15.0) % Plt Count 411 (130-450) 10^3/uL MPV 11.1 H (7.9-10.8) fL Neut # (Auto) Not Reportable Lymph # (Auto) Not Reportable [place] # (Auto) Not Reportable Eos # (Auto) Not Reportable Baso # (Auto) Not Reportable Absolute Nucleated RBC Not Reportable Total Counted 100 Band Neuts % (Manual) 0 (0 - 10) % Abnorm Lymph % (Manual) 0 % Nucleated RBC % Not Reportable Neutrophils # (Manual) 17.9 H (1.5-6.6) 10^3/uL Lymphocytes # (Manual) 3.0 (1.5-3.5) 10^3/uL Monocytes # (Manual) 2.1 H (0.0-1.0) 10^3/uL Eosinophils # (Manual) 0.0 (0-0.7) 10^3/uL Basophils # (Manual) 0.0 (0-0.1) 10^3/uL Differential Comment MANUAL DIFFERENTIAL Platelet Estimate NORMAL (130-450,000) (NORMAL) RBC Morph Micro Appear NORMAL APPEARANCE (NORMAL) Sodium 140 (135-145) mmol/L Potassium 4.6 (3.5-5.0) mmol/L Chloride 101 (101-111) mmol/L Carbon Dioxide 29 (21-32) mmol/L Anion Gap 10.0 (6-13) BUN 25 H (6-20) mg/dL Creatinine 0.8 (0.4-1.0) mg/dL Estimated GFR (MDRD) 71 L (>89) Glucose 205 H (70-100) mg/dL Calcium 9.0 (8.5-10.3) mg/dL ABX Reporting Has patient been on IV antibiotics over the past 48 hours?: Yes Assessment/Plan - Problem List (1) Acute on chronic diastolic (congestive) heart failure Impression: I suspect this may be contributing to her exertional dyspnea. Her BNP is somewhat elevated but close to her baseline. She does have lower extremity edema and does endorse orthopnea. CT did not reveal any pulmonary vascular congestion or edema. We will give another dose of Lasix 40 mg IV today and look to switch her to p.o. Lasix tomorrow. She has had excellent urine output and has responded well to diuresis. Continue with daily weights, strict I's and O's. (2) Chronic respiratory failure with hypoxia Impression: This is secondary to her COPD. She is on 2 L of oxygen at baseline and she remains on this here. We will continue oxygen for goal saturation greater than 88%. She will need an exercise desaturation test prior to discharge. (3) Atypical pneumonia Impression: There was concern for atypical pneumonia initially on chest x-ray. She did receive azithromycin and 3 days of ceftriaxone. The CT did not reveal any suggestion of pneumonia and I suspect she likely has her symptoms from underlying heart failure and COPD. We will discontinue antibiotics. (4) COPD (chronic obstructive pulmonary disease) Impression: It appears there was concern history for component of COPD exacerbation and she was given 2 days of IV Solu-Medrol. She has no wheezing today and no dyspnea at rest also still present with exertion. I do not think her COPD is an exacerbation but I do wonder if her dyspnea with exertion is related to her underlying COPD and progression of her disease. She is not on maintenance inhaler therapy and treatment of her albuterol prior to hospitalization. We will have her on duo nebs 4 times daily and albuterol as needed for the time being. I will discharge her with Spiriva and give her a refill for nebulizer. She will need outpatient PFTs and we also discussed an outpatient palliative care consult which she is agreeable to. We will also refer her to pulmonary rehab. Qualifiers: COPD type: unspecified COPD Qualified Code(s): J44.9 - Chronic obstructive pulmonary disease, unspecified (5) Leukocytosis Impression: Her white count remains elevated at 22,000 which is likely secondary to the Solu-Medrol she had received. There is no obvious source of infection at this point. We will continue to monitor and we have discontinued the antibiotics as mentioned above as there is low suspicion for pneumonia. (6) Sinus bradycardia Impression: She has been bradycardic at this hospitalization and it is a sinus rhythm. We have held her metoprolol and despite this, her heart rates have been in the 40s to low 50s. We will continue to hold her metoprolol and will likely discontinue it on discharge until she follows up with her parking manager. (7) Coronary artery disease Impression: Stable. We are continuing her home medications. (8) Depression Impression: Stable. Continue sertraline. Qualifiers: (9) HTN (hypertension) Impression: Her blood pressure is controlled on lisinopril and spironolactone. (10) Hyperglycemia Impression: This is likely secondary to the steroids. These have since been discontinued but nonetheless we will start her on a sliding scale and check an A1c.
[2020-11-11] MEDS: INSULIN ASPART 300 UNIT/3 ML PEN SUBQ SCH ×3 (12:49→21:11)
[2020-11-11] MEDS ORDERED: ALBUTEROL NEB 2.5 MG/3 ML INH PRN (14:03)
[2020-11-11] MEDS: IPRATROPIUM/ALBUTEROL 3 ML NEB INH SCH ×2 (14:41→20:27)
[2020-11-11] MEDS: ATORVASTATIN 40 MG TABLET PO SCH (21:11)
[2020-11-12] MEDS: SODIUM CHLORIDE FLUSH 0.9% 10 ML SYRINGE IVP SCH ×2 (02:28→10:00)
[2020-11-12] MEDS: IPRATROPIUM/ALBUTEROL 3 ML NEB INH SCH ×3 (03:33→12:03)
[2020-11-12] MEDS: FUROSEMIDE 20 MG TABLET PO SCH (05:12)
[2020-11-12 05:24] LABS: BASOPHILS % (AUTO) 0.2 %; EOSINOPHILS # (AUTO) 0.2 10^3/uL (0.0-0.7); EOSINOPHILS % (AUTO) 1.4 %; HCT - HEMATOCRIT 43.2 % (37.0-47.0); HGB - HEMOGLOBIN 13.3 g/dL (12.0-16.0); LYMPHOCYTES # (AUTO) 2.8 10^3/uL (1.5-3.5); LYMPHOCYTES % (AUTO) 19.7 %; MEAN CORPUSCULAR HGB CONC 30.8 g/dL (32.0-36.0); MEAN CORPUSCULAR VOLUME 87.8 fL (81.0-99.0); MEAN PLATELET VOLUME 11.3 fL (7.9-10.8); MONOCYTES # (AUTO) 1.1 10^3/uL (0.0-1.0); MONOCYTES % (AUTO) 7.5 %; NEUTROPHILS % (AUTO) 70.6 %; PLT - PLATELET COUNT 381 10^3/uL (130-450); RED BLOOD COUNT 4.92 10^6/uL (4.20-5.40); RED CELL DISTRIBUTION WIDTH 14.8 % (12.0-15.0); WHITE BLOOD COUNT 14.1 x10^3/uL (4.8-10.8)
[2020-11-12 05:31] LABS: CALCIUM 8.4 mg/dL (8.5-10.3); CREATININE 0.8 mg/dL (0.4-1.0); POTASSIUM 3.9 mmol/L (3.5-5.0)
--- NOTE | 2020-11-12 09:18 | Discharge Plan ---
Discharge Plan Problem Reviewed?: Yes Disposition: Home, Self Care Condition: Stable Prescriptions: Albuterol 2.5 mg INH Q4H PRN #30 neb PRN Reason: Wheezing Furosemide [Lasix] 20 mg PO 1400 #30 tablet Furosemide [Lasix] 40 mg PO DAILY #30 tablet Tiotropium [place] [Spiriva] 1 puffs INH DAILY 30 Days #30 each Diet: Cardiac Activity Restrictions: Activity as Tolerated Health Concerns: You were admitted to the hospital because you felt short of breath which was felt to be secondary to heart failure. There was initial concern for pneumonia but this was felt to be less likely given the CT scan of your lungs showed no evidence of pneumonia. We gave you IV Lasix which helped with fluid and this has improved your breathing. We will be sending you home on an increased dose of Lasix. Your heart rate has been on the lower side since you have been here ranging from the 40s to low 50s. We will be holding your metoprolol until you follow-up with your die inspector. Plan of Treatment: I have written a new prescription for you to take Spiriva once a day for your COPD. I have also prescribed you a nebulizer to take as needed. Please stop taking metoprolol due to your low heart rate. Please follow-up with your die inspector to discuss resuming this in the future. Please also now take Lasix 40 mg in the morning and 20 mg in the afternoon. You should ideally check your weight on a daily basis and call your primary care provider or die inspector if your weight increases by 2 to 3 pounds. I also placed a referral for palliative care on an outpatient basis as well as referral to the [facility] for heart failure classes/ Care Goals: The goal is to optimize your medications for your underlying heart failure and COPD to prevent future admissions and improve your quality of life. Assessment: The patient expressed understanding of the treatment plan. Additional Instructions or Follow Up instructions: Please follow-up with your primary care physician this week as scheduled. Please also follow-up with your die inspector next week as scheduled. Follow-Up Care: [facility] - CHF Classes No Smoking: If you smoke, Please STOP! Call for help. Follow-up with: Nuno Bauman MD [Primary Care Provider] -
[2020-11-12] MEDS: INSULIN ASPART 300 UNIT/3 ML PEN SUBQ SCH ×2 (09:59→12:33)
[2020-11-12] MEDS: ASPIRIN EC 81 MG TABLET PO SCH (10:00)
[2020-11-12] MEDS: SERTRALINE 50 MG TABLET PO SCH (10:00)
[2020-11-12] MEDS: CLOPIDOGREL 75 MG TABLET PO SCH (10:00)
[2020-11-12] MEDS: lisinopriL 5 MG TABLET PO SCH (10:00)
[2020-11-12] MEDS: SPIRONOLACTONE 25 MG TABLET PO SCH (10:00)
[2020-11-12] MEDS: ENOXAPARIN 40 MG/0.4 ML SYRINGE SUBQ SCH (10:01)
[2020-11-12] MEDS: NYSTATIN CREAM 15 GM TUBE TOP SCH (10:04)
--- NOTE | 2020-11-12 10:26 | DISCHARGE SUMMARY ---
Discharge Summary Admit Date: 11/08/20 Discharge Date: 11/12/20 Discharging Provider: [place] Primary Care Provider: Nuno Bauman Code Status: Attempt Resuscitation Condition at Discharge: Stable Discharge Disposition: 01 Home, Self Care - DIAGNOSES Admission Diagnoses: Pneumonia Acute on chronic respiratory failure with hypoxia Morbid obesity CHF, chronic Thi rash of groin Coronary artery disease Depression Hypertension Discharge Diagnoses with Status of Each Condition: Acute on chronic diastolic heart failure - improved. Chronic respiratory failure with hypoxia - stable. Atypical pneumonia - resolved. COPD - stable. Leukocytosis - improved. Sinus bradycardia - stable. Coronary artery disease - stable. Depression - stable. Hypertension - stable. Hyperglycemia - resolved. - HPI History of Present Illness: H&P per Dr. Gil: Patient is a 70-year-old female with multiple medical comorbidities which include morbid obesity, coronary disease, CHF, COPD, hypertension, hyp erlipidemia who presented to the ED with worsening dyspnea. Symptoms have been going on for the past 2 weeks but became unbearable today. She uses 2 L of oxygen via nasal cannula at home. This was unable to sustain her oxygen requirement. Upon presentation to the ED attempts to ambulate her resulted in significant tachypnea with a respiratory rate as high as 50. She reports a nonproductive cough. She denied fever or chills. She denies chest pain, abdominal pain, nausea, vomiting or lower extremity edema. In the ED her white blood cell count was noted to be 13.6. She had a BNP of 1095 Chest x-ray was done and suggested mild atypical pneumonia. The patient is visibly dyspneic and has an audible mild wheeze. There's diminished lung sounds on auscultation of her lungs. - HOSPITAL COURSE Hospital Course: She was admitted for dyspnea which was felt to be related to possible atypical pneumonia and a component of heart failure. She was treated with IV azithromycin and ceftriaxone. CT angiogram showed no pulmonary embolism or obvious infiltrate. She was also treated with Solu-Medrol 80 mg 3 times daily for 2 days given her underlying COPD. An echocardiogram was not repeated given she had one just 2 months ago which showed an ejection fraction of 50% with hypokinesis of apex and distal anterior wall. Her antibiotics were later discontinued given low suspicion for infection. She did respond well to diuresis and her BNP increased daily as well as her lower extremity edema. It was felt that the heart failure was likely contributing to her dyspnea other than pneumonia. She was switched to oral Lasix 40 mg in the morning and 20 mg afternoon to take at home which is an increase from 20 mg twice daily. Her home metoprolol had also been discontinued given she had sinus bradycardia throughout this hospitalization. She was asked to follow-up with her checking clerk next week as scheduled to consider resumption of this. She will also need follow-up with her checking clerk given her ejection fraction of 50% and the fact that there is hypokinesis evident as she she may need further work-up of this including potential angiogram. An outpatient palliative care referral was placed after discussion with the patient. She was also referred to the [facility] for CHF classes. She was also prescribed Spiriva for her underlying COPD. We did do an exercise desaturation test prior to discharge and she continues to require 2 L of oxygen at rest and with activity which is her baseline. I did recommend outpatient follow-up pulmonary function testing over the next few weeks. - ALLERGIES Allergies/Adverse Reactions: Allergies Allergy/AdvReac Type Severity Reaction Status Date / Time Sulfa (Sulfonamide Allergy Hives Verified 11/08/20 13:45 Antibiotics) - MEDICATIONS Home Medications: Ambulatory Orders Medication Instructions Recorded Confirmed Aspirin [Aspirin EC] 81 mg PO DAILY 06/22/19 11/09/20 Atorvastatin Calcium 40 mg PO QPM 06/22/19 11/09/20 Clopidogrel Bisulfate [Clopidogrel] 75 mg PO DAILY 06/22/19 11/09/20 Nitroglycerin 0.4 mg SL Q5M PRN 06/22/19 11/09/20 lisinopriL [Lisinopril] 10 mg PO DAILY 12/01/19 11/09/20 Sertraline [Zoloft] 50 mg PO DAILY 06/11/20 11/09/20 Spironolactone [Aldactone] 25 mg PO DAILY 06/11/20 11/09/20 Nystatin Cream [Mycostatin Cream] 1 gm TOP BID #45 gr 06/12/20 11/09/20 Albuterol 2.5 mg INH Q4H PRN #30 neb 11/12/20 Furosemide [Lasix] 20 mg PO 1400 #30 tablet 11/12/20 Furosemide [Lasix] 40 mg PO DAILY #30 tablet 11/12/20 Tiotropium [place] [Spiriva] 1 puffs INH DAILY 30 Days #30 each 11/12/20 - PHYSICAL EXAM AT DISCHARGE General Appearance: positive: No acute distress, Alert Eyes Bilateral: positive: Normal inspection, Conjunctivae nml ENT: positive: ENT inspection nml, Other (Nasal cannula in place.) Neck: positive: Nml inspection Respiratory: positive: No respiratory distress. negative: Wheezes, Rales Cardiovascular: positive: Bradycardia. negative: Irregularly irregular, T achycardia, Systolic murmur Abdomen: positive: Non-tender, No distention. negative: Tenderness Skin: positive: Warm, Dry Extremities: positive: No pedal edema Neurologic/Psychiatric: positive: Motor nml. negative: Disoriented to person, Disoriented to place Physical Exam Other/Comments: Vital Signs - 24 hr 11/11/20 11/11/20 11/11/20 14:42 17:00 20:31 Temperature 36.5 C Heart Rate 52 L 58 L Heart Rate [ 55 L Brachial] Respiratory 14 20 20 Rate Blood Pressure 123/43 L [Left Brachial artery] Blood Pressure [Left Radial artery] Blood Pressure [Right Brachial artery] O2 Saturation 96 11/11/20 11/12/20 11/12/20 21:00 00:55 06:52 Temperature 36.5 C 36.4 C L 36.5 C Heart Rate Heart Rate [ 58 L 55 L 51 L Brachial] Respiratory 16 16 18 Rate Blood Pressure 125/48 L 128/48 L [Left Brachial artery] Blood Pressure [Left Radial artery] Blood Pressure 118/54 L [Right Brachial artery] O2 Saturation 95 95 93 11/12/20 11/12/20 11/12/20 07:18 07:42 07:45 Temperature 36.6 C 36.6 C Heart Rate 53 L Heart Rate [ 57 L 56 L Brachial] Respiratory 16 20 20 Rate Blood Pressure [Left Brachial artery] Blood Pressure 104/68 [Left Radial artery] Blood Pressure 104/68 [Right Brachial artery] O2 Saturation 93 92 11/12/20 11/12/20 11:49 11:55 Temperature 36.8 C Heart Rate 103 H Heart Rate [ 58 L Brachial] Respiratory 18 Rate Blood Pressure [Left Brachial artery] Blood Pressure [Left Radial artery] Blood Pressure 143/66 H [Right Brachial artery] O2 Saturation 2 L Oxygen O2 Source [Without Activity] Room air O2 Source [With Activity] Nasal cannula O2 Source Nasal cannula Oxygen Flow Rate 2 - LABS Result Diagrams: 11/12/20 04:21 11/12/20 04:21 - DIAGNOSTIC IMAGING Diagnostic Imaging Results: Final report reviewed - FOLLOW UP Follow Up: She will be following up with her primary care physician in 2 days. I did prescribe Spiriva for her to take at home and I discussed with her that this may need a prior authorization for which her primary care physician will need to follow-up on. I have also referred her to palliative care on an outpatient basis as well as to the [facility] for CHF classes. She is scheduled to see her new checking clerk next week and we are holding her metoprolol until this evaluation given she was bradycardic throughout this hospitalization. She may need consideration of further ischemic work-up given her prior echocardiogram revealed an ejection fraction of 50% with hypokinesis of the apex and distal anterior wall. This has been present on prior echocardiograms as well. - TIME SPENT Time Spent in Discharge (Minutes): 36
[2020-11-12 11:50] VITALS: BP 143/66
== END 2020-11-12 14:56 | disposition home or self-care (01) | DRG 291 ==
LOC: ED 13:40 → MS2 18:06
PROVIDERS: ADMIT Internal Medicine; ATTEND Internal Medicine
DX: I11.0 Hypertensive heart disease with heart failure (principal); J18.9 Pneumonia, unspecified organism; I50.9 Heart failure, unspecified; I25.10 Atherosclerotic heart disease of native coronary artery without angina pectoris; F41.9 Anxiety disorder, unspecified; J44.0 Chronic obstructive pulmonary disease with (acute) lower respiratory infection; Z20.822 Contact with and (suspected) exposure to COVID-19; J96.11 Chronic respiratory failure with hypoxia; Z68.42 Body mass index [BMI] 45.0-49.9, adult; Z91.14 Patient's other noncompliance with medication regimen; J44.1 Chronic obstructive pulmonary disease with (acute) exacerbation; I50.33 Acute on chronic diastolic (congestive) heart failure; F32.9 Major depressive disorder, single episode, unspecified; R00.1 Bradycardia, unspecified; B37.2 Candidiasis of skin and nail; R73.9 Hyperglycemia, unspecified; E78.5 Hyperlipidemia, unspecified; E66.01 Morbid (severe) obesity due to excess calories; D72.829 Elevated white blood cell count, unspecified; T38.0X5A Adverse effect of glucocorticoids and synthetic analogues, initial encounter; Y92.230 Patient room in hospital as the place of occurrence of the external cause; Z99.81 Dependence on supplemental oxygen; I25.2 Old myocardial infarction; Z79.82 Long term (current) use of aspirin; Z79.52 Long term (current) use of systemic steroids; Z79.02 Long term (current) use of antithrombotics/antiplatelets; Z95.5 Presence of coronary angioplasty implant and graft; Z87.891 Personal history of nicotine dependence
CPT/HCPCS: 0202U; 36415; 80048; 80053; 82803; 83690; 83880; 84484; 85025; 85379; 87040; 93005; 94640; 94761; 99284; 99285

== ENCOUNTER 2021-02-01 18:56 | Observation (INO) | payer MEDICARE ==
[2021-02-01 19:17] LABS: BASOPHILS # (AUTO) 0.1 10^3/uL (0.0-0.1); BASOPHILS % (AUTO) 0.5 %; EOSINOPHILS # (AUTO) 0.3 10^3/uL (0.0-0.7); EOSINOPHILS % (AUTO) 1.7 %; HCT - HEMATOCRIT 41.7 % (37.0-47.0); HGB - HEMOGLOBIN 13.2 g/dL (12.0-16.0); LYMPHOCYTES # (AUTO) 1.9 10^3/uL (1.5-3.5); LYMPHOCYTES % (AUTO) 12.3 %; MEAN CORPUSCULAR HGB CONC 31.7 g/dL (32.0-36.0); MEAN CORPUSCULAR VOLUME 88.3 fL (81.0-99.0); MEAN PLATELET VOLUME 10.4 fL (7.9-10.8); MONOCYTES # (AUTO) 0.8 10^3/uL (0.0-1.0); MONOCYTES % (AUTO) 5.1 %; NEUTROPHILS # (AUTO) 12.3 10^3/uL (1.5-6.6); PLT - PLATELET COUNT 426 10^3/uL (130-450); RED BLOOD COUNT 4.72 10^6/uL (4.20-5.40); RED CELL DISTRIBUTION WIDTH 13.8 % (12.0-15.0); WHITE BLOOD COUNT 15.4 x10^3/uL (4.8-10.8)
--- NOTE | 2021-02-01 19:21 | ED Physician Documentation ---
PD HPI DYSPNEA - Stated complaint Stated Complaint: SOA - Chief complaint Chief Complaint: Resp - History obtained from History obtained from: Patient - Additional information Additional information: Payton is a 71-year-old female with a past medical history of morbid obesity, CAD, CHF, COPD and hypertension who presents with 2 to 3 days of increasing shortness of breath and dyspnea on exertion. Patient is on chronic home oxygen typically 2 L nasal cannula though has had a bump it up to 2.5 to 3.5 L over the last couple of days and even with this change she feels extremely dyspneic and unable to walk more than a few feet before feeling short of breath. She denies any fever, cough or cold symptoms, chest pain, abdominal pain, nausea vomiting or diarrhea. She denies any change in her diet, no new lower extremity edema. She Reports that she does not lay flat at baseline and has had no change in orthopnea. She reports compliance with her medications including Lasix and inhalers for COPD. She is vaccinated for Covid and denies any known exposure. She states that she had same symptoms during her admission in November and reports being admitted 4 times over the past year for similar symptoms. She was admitted in November for atypical pneumonia, CHF exacerbation and COPD. Patient had a echocardiogram in September 2020 which showed a EF of 50 to 55% stable hypokinesis, normal right ventricle function. This is unchanged from prior and June 2020. Review of Systems Constitutional: reports: Fatigue Eyes: reports: Reviewed and negative Ears: reports: Reviewed and negative Nose: reports: Reviewed and negative Throat: reports: Reviewed and negative Cardiac: denies: Chest pain / pressure, Palpitations, Pedal edema, Calf pain Respiratory: reports: Dyspnea. denies: Cough, Hemoptysis, Wheezing GI: reports: Reviewed and negative : reports: Reviewed and negative Skin: reports: Reviewed and negative Musculoskeletal: reports: Reviewed and negative Neurologic: reports: Reviewed and negative PD PAST MEDICAL HISTORY - Past Medical History Past Medical History: Yes Cardiovascular: Congestive heart failure, Hypertension, High cholesterol, Coronary artery disease, IA Respiratory: COPD, Other Neuro: None Endocrine/Autoimmune: None GI: None SHERIFF'S OFFICER: None : None HEENT: None Psych: Depression, Anxiety Musculoskeletal: None Derm: None - Past Surgical History Past Surgical History: Yes General: Cholecystectomy, Appendectomy Cardiovascular: Coronary stent - Present Medications Home Medications: Ambulatory Orders Medication Instructions Recorded Confirmed Aspirin [Aspirin EC] 81 mg PO DAILY 06/22/19 11/09/20 Atorvastatin Calcium 40 mg PO QPM 06/22/19 11/09/20 Clopidogrel Bisulfate [Clopidogrel] 75 mg PO DAILY 06/22/19 11/09/20 Nitroglycerin 0.4 mg SL Q5M PRN 06/22/19 11/09/20 lisinopriL [Lisinopril] 10 mg PO DAILY 12/01/19 11/09/20 Sertraline [Zoloft] 50 mg PO DAILY 06/11/20 11/09/20 Spironolactone [Aldactone] 25 mg PO DAILY 06/11/20 11/09/20 Nystatin Cream [Mycostatin Cream] 1 gm TOP BID #45 gr 06/12/20 11/09/20 Albuterol 2.5 mg INH Q4H PRN #30 neb 11/12/20 Furosemide [Lasix] 20 mg PO 1400 #30 tablet 11/12/20 Furosemide [Lasix] 40 mg PO DAILY #30 tablet 11/12/20 Tiotropium [place] [Spiriva] 1 puffs INH DAILY 30 Days #30 each 11/12/20 Formoterol Fumarate 20 mcg IH BID #30 neb 11/13/20 - Allergies Allergies/Adverse Reactions: Allergies Allergy/AdvReac Type Severity Reaction Status Date / Time Sulfa (Sulfonamide Allergy Hives Verified 02/01/21 19:06 Antibiotics) - Social History Does the pt smoke?: No Smoking Status: Former smoker Does the pt drink ETOH?: No Does the pt have substance abuse?: No - Immunizations Immunizations are current?: Yes - POLST Patient has POLST: No POLST Status: Full Code PD ED PE NORMAL - Vitals Vital signs reviewed: Yes - General General: Alert and oriented X 3, No acute distress, Well developed/nourished - HEENT HEENT: Atraumatic, Moist mucous membranes, Pharynx benign - Neck Neck: Supple, no meningeal sign, No adenopathy, No JVD - Cardiac Cardiac: RRR, No murmur, No gallop, No rub, Strong equal pulses - Respiratory Respiratory: Other (Patient is tachypneic between 20-35 respirations per minute. She is talking and short sentences. No accessory muscle use. Lungs are clear , no wheezing.) - Abdomen Abdomen: Normal bowel sounds, Soft, Non tender, Non distended, Other (Morbidly obese) - Derm Derm: Normal color, Warm and dry, No rash - Extremities Extremities: No deformity, No tenderness to palpate, Normal ROM s pain, No edema, No calf tenderness / cord - Neuro Neuro: Alert and oriented X 3 Eye Opening: Spontaneous Motor: Obeys Commands Verbal: Oriented GCS Score: 15 - Psych Psych: Normal mood, Normal affect Results - Vitals Vitals: Vital Signs - 24 hr 02/01/21 02/01/21 19:06 21:16 Temperature 37.1 C Heart Rate 88 59 L Respiratory 16 16 Rate Blood Pressure 160/80 H 127/66 O2 Saturation 88 L 99 Oxygen O2 Source [] Room air O2 Source [] Nasal cannula O2 Source Nasal cannula Oxygen Flow Rate 3 - EKG (time done) No standard instances Rate: Rate (enter#) (68) Rhythm: NSR [place]: Normal Intervals: Normal IA QRS: Normal Ischemia: Non specific changes Computer interpretation: Agree with computer - Labs Labs: Laboratory Tests 02/01/21 02/01/21 02/01/21 19:12 19:12 19:12 WBC 15.4 H RBC 4.72 Hgb 13.2 Hct 41.7 MCV 88.3 MCH 28.0 MCHC 31.7 L RDW 13.8 Plt Count 426 MPV 10.4 Neut # (Auto) 12.3 H Lymph # (Auto) 1.9 Mclean # (Auto) 0.8 Eos # (Auto) 0.3 Baso # (Auto) 0.1 Absolute Nucleated RBC 0.00 Nucleated RBC % 0.0 D-Dimer VBG pH VBG pCO2 VBG pO2 VBG HCO3 VBG Total CO2 VBG O2 Saturation VBG Base Excess Sodium 139 Potassium 3.5 Chloride 102 Carbon Dioxide 25 Anion Gap 12.0 BUN 12 Creatinine 0.7 Estimated GFR (MDRD) 82 L Glucose 198 H Calcium 8.5 Total Bilirubin 0.5 AST 18 ALT 22 Alkaline Phosphatase 102 Troponin I High Sens B-Natriuretic Peptide 905 H Total Protein 6.9 Albumin 3.4 Globulin 3.5 Albumin/Globulin Ratio 1.0 Lipase 24 02/01/21 02/01/21 02/01/21 19:12 19:17 19:58 WBC RBC Hgb Hct MCV MCH MCHC RDW Plt Count MPV Neut # (Auto) Lymph # (Auto) Mclean # (Auto) Eos # (Auto) Baso # (Auto) Absolute Nucleated RBC Nucleated RBC % D-Dimer 263.8 H VBG pH 7.415 H VBG pCO2 38.2 L VBG pO2 83.4 H VBG HCO3 23.9 VBG Total CO2 25.1 VBG O2 Saturation 96.5 H VBG Base Excess -0.4 Sodium Potassium Chloride Carbon Dioxide Anion Gap BUN Creatinine Estimated GFR (MDRD) Glucose Calcium Total Bilirubin AST ALT Alkaline Phosphatase Troponin I High Sens 13.2 B-Natriuretic Peptide Total Protein Albumin Globulin Albumin/Globulin Ratio Lipase PD MEDICAL DECISION MAKING - ED course Complexity details: reviewed old records, reviewed results, re-evaluated patient, considered differential, d/w patient ED course: This is a 71-year-old female with extensive past medical history as noted above who presented with dyspnea on exertion worsening over the past couple of days. Patient's work-up is largely reassuring however she continues to have dyspnea and tachypnea. She has evidence of a mild CHF exacerbation, and this coupled with her chronic COPD, CAD, obesity hypoventilation, and chronic deconditioning are likley contributing to symptoms today. We did discuss discharge home with medical management versus admit and patient really feels as though she cannot go home in her current condition due to her extreme dyspnea. Her chest x-ray today is reassuring, her labs are stable aside from mildly elevated white count which is not uncommon for her and may be related to her chronic inhaled steroid use vs early pneumonia, her BNP is elevated in the 900s, this is up from a prior in the 500s but similar to other admits. Her troponin is negative. Her renal function is stable. Her EKG shows no acute ischemic changes. Her D-dimer is slightly elevated however age-adjusted is normal. I gave the patient 40 mg of IV Lasix for CHF exacerbation. I did not administer any nebulized treatments as her lungs were clear on my exam. I discussed the case with the hospitalist on duty Dr. Akers who very kindly agreed to admit this patient. Patient updated and agreeable to admit. Departure - Departure Disposition: 66 [facility] DC/Xfer Clinical Impression: Acute on chronic diastolic (congestive) heart failure, Moderate COPD (chronic obstructive pulmonary disease)
[2021-02-01 19:26] LABS: VBG BASE EXCESS -0.4 mmol/L (-2 - +2); VBG HCO3 23.9 mmol/L (23-28); VBG OXYGEN SATURATION 96.5 % (60-80); VBG PCO2 38.2 mmHg (41-51); VBG PH 7.415 (7.31-7.41); VBG PO2 83.4 mmHg (25-47); VBG TOTAL CO2 25.1 mmol/L (24-29)
--- NOTE | 2021-02-01 19:39 | XRAY Report ---
PROCEDURE: Chest 1 View X-Ray INDICATIONS: Chest Pain COMMENTS: Chest pain/ Pt states increasing SOB PRIORS: 11/08/20, 09/15/20, 06/11/20 TECHNIQUE: One view of the chest was acquired. COMPARISON: 11/08/2020 FINDINGS: Surgical changes and devices: None. Lungs and pleura: No pleural effusions or pneumothorax. Lungs are clear. Prominent peribronchial vascular opacities are likely related to overlying soft tissues. Mediastinum: Mediastinal contours appear normal. Heart size is normal. Bones and chest wall: No suspicious bony lesions. Overlying soft tissues appear unremarkable. IMPRESSION: No acute cardiopulmonary abnormality. Reviewed by: William Escobar on 02/01/2021 7:37 PM PDT Approved by: William Escobar on 02/01/2021 7:37 PM PDT Station ID: [id number]
[2021-02-01 19:40] LABS: ALBUMIN 3.4 g/dL (3.2-5.5); BILIRUBIN,TOTAL 0.5 mg/dL (0.2-1.0); CALCIUM 8.5 mg/dL (8.5-10.3); CREATININE 0.7 mg/dL (0.4-1.0); POTASSIUM 3.5 mmol/L (3.5-5.0); TOTAL PROTEIN 6.9 g/dL (6.7-8.2)
[2021-02-01] MEDS ORDERED: FUROSEMIDE 40 MG/4 ML VIAL IVP STA (21:10)
[2021-02-01] MEDS ORDERED: ACETAMINOPHEN 325 MG TABLET PO PRN (21:42)
[2021-02-01] MEDS ORDERED: ONDANSETRON 4 MG/2 ML VIAL IVP PRN (21:42)
[2021-02-01] MEDS ORDERED: SODIUM CHLORIDE FLUSH 0.9% 10 ML SYRINGE IVP PRN (21:42)
[2021-02-01] MEDS ORDERED: NITROGLYCERIN SL 0.4 MG TABLET SL PRN (21:47)
[2021-02-01] MEDS ORDERED: ALBUTEROL NEB 2.5 MG/3 ML INH PRN (21:51)
--- NOTE | 2021-02-01 21:59 | HISTORY & PHYSICAL EXAMINATION ---
Chief Complaint - Chief Complaint Chief Complaint: SOA History of Present Illness - Admitted From Admitted From:: ED - History Obtained From History obtained from: ED provider and the patient - History of Present Illness HPI Comment/Other: This is a 71-year-old white female with a history of morbid obesity (BMI 39), coronary disease, CHF with EF of 45-50% with vivian-apical hypokinesis and diastolic heart failure, hypertension, hyperlipidemia, COPD on home oxygen chronically at 2 L. The patient presented to the ED with complaint of 2 days of rapidly worsening shortness of breath despite being compliant with her medications, her salt restriction and her oxygen. She denied fever or cough and had increased the oxygen setting on her own up to 3 L continuously. She has had 2 Covid shots/is vaccinated. Work-up today in the ED showed that she was very tachypneic with respiratory rate 35-50, had mildly elevated white blood count of 15, elevated BNP of 900 (is usually 600 at her best), and CXR report was unremarkable. She was given a dose of iv Lasix and is starting to diurese, but is still very tachypneic, even at rest. She has had 4 admissions here over the past year with the same presentation of shortness of breath and has needed treatment for CHF exacerbation, COPD exacerbation and pneumonia. At the most recent admission which was October 2020, she was chronically bradycardic and her Toprol dose was completely discontinued and she was discharged without a beta-vinita, but her new PCP, Dr Bauman had her resume it. She admits that she is depressed, hardly goes anywhere, hardly walks around except to prepare a frozen meal. She has been referred to the [facility] here for pulmonary rehab, cardiac rehab and/or CHF education classes. She had an SC in Apr [address] to [address] Giron but is changing to Dr Peña for her Cardiology (appointment on Feb 20). After her admissions here, she has been advised to have follow-up for the abnormally depressed LVEF of 45-50 %, plus findings of regional wall motion abnormalities, which was first reported on Echo done here in 06/2020, but she has not had a work-up of this yet, she said. We discussed her CODE BLUE wishes and she wants to be a DNI but is OK with CPR and defibrillation. History - Past Medical History Cardiovascular: reports: Congestive heart failure, Hypertension, High cholesterol, Coronary artery disease, SC (Her SC sx was burping and severe SOB, she had no chest pain.) Respiratory: reports: COPD, Other (She has just receivied a new portable O2 tank with 4-5 hour battery (the old battery sal lasted 1 hour).) Neuro: reports: None Endocrine/Autoimmune: reports: None GI: reports: None PIVOT END POLISHER: reports: None : reports: None HEENT: reports: None Psych: reports: Depression, Anxiety Musculoskeletal: reports: None Derm: reports: Other (Gets frequent yeast infections in her groin and currently has vaginitis.) - Past Surgical History General: reports: Cholecystectomy, Appendectomy Cardiovascular: reports: Coronary stent - Family & Social History Family History: Mother: , Alzheimer's Disease, Father: , CAD Family History Comment/Other: She states her father from myocardial infarction in his early 50s. 3 of her brothers also have heart disease and have required CABGs. 2 brothers have of heart disease. She still has 5 brothers and 1 sister living. Living arrangement: At home Living Situation: Alone Social History Notes: She quit smoking with the SC, in April 2019. She had been smoking for about 50 years prior to that, varying between half a pack to a pack a day. She reports no alcohol use. She lives alone and has been retired for 2-3 years. 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 She lives next door to her brother. She has 2 grown daughters who live in [place] and [place]. - Substance History Use: Uses substance without health or social issues: NONE - POLST Patient has POLST: No POLST Status: WantsDNI/but CPR&defib OK Meds/Allgy - Home Medications Home Medications: Ambulatory Orders Medication Instructions Recorded Confirmed Aspirin [Aspirin EC] 81 mg PO DAILY 06/22/19 11/09/20 Atorvastatin Calcium 40 mg PO QPM 06/22/19 11/09/20 Clopidogrel Bisulfate [Clopidogrel] 75 mg PO DAILY 06/22/19 11/09/20 Nitroglycerin 0.4 mg SL Q5M PRN 06/22/19 11/09/20 lisinopriL [Lisinopril] 10 mg PO DAILY 12/01/19 11/09/20 Sertraline [Zoloft] 50 mg PO DAILY 06/11/20 11/09/20 Spironolactone [Aldactone] 25 mg PO DAILY 06/11/20 11/09/20 Nystatin Cream [Mycostatin Cream] 1 gm TOP BID #45 gr 06/12/20 11/09/20 Albuterol 2.5 mg INH Q4H PRN #30 neb 11/12/20 Furosemide [Lasix] 20 mg PO 1400 #30 tablet 11/12/20 Furosemide [Lasix] 40 mg PO DAILY #30 tablet 11/12/20 Tiotropium [place] [Spiriva] 1 puffs INH DAILY 30 Days #30 each 11/12/20 Formoterol Fumarate 20 mcg IH BID #30 neb 11/13/20 - Allergies Allergies/Adverse Reactions: Allergies Allergy/AdvReac Type Severity Reaction Status Date / Time Sulfa (Sulfonamide Allergy Hives Verified 02/01/21 19:06 Antibiotics) Review of Systems - Cardiovascular Cariovascular: reports: Exertional dyspnea, Decr. exercise tolerance, Orthopnea - Respiratory Respiratory: reports: Wheezing, Orthopnea, SOB at rest, SOB with exertion, Other (Uses her home O2 continuously) - Genitourinary Genitourinary: reports: Other (Vaginal itch) - Integumentary Integumentary: reports: Rash (in groin) - Psychiatric Psychiatric: reports: Depression (Has no interest in activities or socializing) - All Other Systems All Other Systems: reports: Reviewed and negative Exam - Vital Signs Reviewed Vital Signs: Yes Vital Signs: Vital Signs x48h Temp Pulse Resp BP Pulse Ox 02/01/21 21:16 59 L 16 127/66 99 02/01/21 19:06 37.1 C 88 16 160/80 H 88 L - Physical Exam General Appearance: positive: Moderate distress (Dyspneic when she speaks, is wearing O2 n.c.) ENT: positive: No signs of dehydration Neck: positive: Nml inspection (Obese neck, cannot r/o JVD) Respiratory: positive: Wheezes (Scattered wheeze, diminished basal breath sounds) Cardiovascular: positive: Regular rate & rhythm (Very distant heart sounds due to large, pendulous breasts) Abdomen: positive: Non-tender, No distention, Other (Obese with pannus, redness in groins) Skin: positive: Warm, Dry Extremities: positive: Non-tender, Other (Trace pre-tibial edema) Neurologic/Psychiatric: positive: Oriented x3 (Non-focal) Conclusion/Plan - Problem List (1) Acute and chronic respiratory failure with hypoxia Conclusion/Plan: The patient is obviously in distress from dyspnea, even at rest and is orthopneic. We will continue with supplemental oxygen, and treat the underlying CHF exacerbation plus continue COPD management (2) CHF exacerbation Conclusion/Plan: There is no obvious etiology for the current CHF exacerbation: She is not hypertensive or tachycardic, she is compliant with her medications and dietary restrictions and oxygen use Of note are the wall motion abnormalities noted by echo for several months and these have not yet been addressed by having either a stress test to confirm ischemia or going straight to an angiogram. This was discussed with the patient and she will address it with her new terrazzo worker apprentice, Dr. Ryan at her February 20 appointment. Will cycle her troponins to rule out acute ACS as cause of CHF. We will use IV twice daily Lasix for treatment of her CHF, follow I's and O's, daily weights, electrolytes and magnesium. We will continue her beta-vinita, Spironolactone and EARL inhibitor Qualifiers: Heart failure type: combined systolic and diastolic Qualified Code(s): I50.43 - Acute on chronic combined systolic (congestive) and diastolic (congestive) heart failure (3) COPD exacerbation Conclusion/Plan: There is mild wheezing and a prolonged expiratory phase heard diffusely therefore she may also have a COPD exacerbation. Will use nebulizers for bronchodilation and add nightly Singulair, continue her supplemental oxygen (4) CAD S/P percutaneous coronary angioplasty Conclusion/Plan: Her LV wall motion abnormalities noted by Echo for several months have not yet been addressed by having either a stress test to confirm ischemia or going straight to an angiogram. This was discussed with the patient and she will address it with her new Vending Machine Coin Collector, Dr. Ryan at her February 20 appointment. Will cycle her troponins to rule out acute ACS as cause of CHF Continue her daily antiplatelet agents and her beta-vinita post SC. (5) HTN (hypertension) Conclusion/Plan: Blood pressure is stable on her current combination of meds, will continue these. (6) Depression Conclusion/Plan: She says that her sertraline is not really helping her depressed mood and she has tried several other antidepressants with minimal benefit. We will continue sertraline here, not wean it to off but she was advised to discuss her depression with her PCP, Dr. Bauman. Qualifiers: (7) Obesity (BMI 30-39.9) Conclusion/Plan: At the last admission her BMI was 41, there has been a slight decrease (8) Vaginitis Conclusion/Plan: Will order a dose of Diflucan p.o. She also needs Nystatin cream to her groin areas under the pannus (9) Yeast dermatitis Conclusion/Plan: She also needs Nystatin cream to her groin areas under the pannus - Lab Results Fish Bones: 02/01/21 19:12 02/01/21 19:12 - Diagnostic Imaging Results Diagnostic Imaging Results: positive: Final report reviewed - EKG Results EKG Interpreted Independently: Yes EKG Comparison: Unchanged from prior EKG
[2021-02-01 22:39] LABS: B. PARAPERTUSSIS- RESP PCR PAN NOT DETECTED; B. PERTUSSIS- RESP PCR PANEL NOT DETECTED; C. PNEUMONIAE- RESP PCR PANEL NOT DETECTED; CORONAVIRUS 229E-RESP PCR NOT DETECTED; CORONAVIRUS HKU1-RESP PCR NOT DETECTED; CORONAVIRUS NL63-RESP PCR NOT DETECTED; CORONAVIRUS OC43-RESP PCR NOT DETECTED; HUMAN METAPNEUMOVIRUS NOT DETECTED; INFLUENZA A- RESP PCR PANEL NOT DETECTED; INFLUENZA B - RESP PCR PANEL NOT DETECTED; M. PNEUMONIAE- RESP PCR PANEL NOT DETECTED; PARAINFLUENZA VIRUS 1 NOT DETECTED; PARAINFLUENZA VIRUS 2 NOT DETECTED; PARAINFLUENZA VIRUS 3 NOT DETECTED; PARAINFLUENZA VIRUS 4 NOT DETECTED; RHINOVIRUS/ENTEROVIRUS NOT DETECTED; RSV- RESP PCR PANEL NOT DETECTED; SARS-CoV-2 -RESP PCR PANEL NOT DETECTED
[2021-02-01] MEDS: MONTELUKAST 10 MG TABLET PO SCH (23:04)
[2021-02-01] MEDS: LEVALBUTEROL 1.25 MG/3 ML NEB INH SCH (23:39)
[2021-02-02] MEDS: SODIUM CHLORIDE FLUSH 0.9% 10 ML SYRINGE IVP SCH ×3 (00:23→16:45)
[2021-02-02] MEDS: NYSTATIN CREAM 15 GM TUBE TOP SCH ×3 (00:23→20:38)
[2021-02-02] MEDS: FUROSEMIDE 20 MG/2 ML VIAL IVP SCH ×2 (05:00→14:39)
[2021-02-02 06:02] LABS: CALCIUM 8.7 mg/dL (8.5-10.3); CREATININE 0.7 mg/dL (0.4-1.0); MAGNESIUM 1.9 mg/dL (1.7-2.8); POTASSIUM 3.3 mmol/L (3.5-5.0)
[2021-02-02] MEDS: BUDESONIDE 0.5 MG/2 ML NEB INH SCH (07:40)
[2021-02-02] MEDS: LEVALBUTEROL 1.25 MG/3 ML NEB INH SCH ×3 (07:40→18:18)
[2021-02-02] MEDS ORDERED: FLUCONAZOLE 100 MG TABLET PO ONE (08:00)
[2021-02-02] MEDS: SPIRONOLACTONE 25 MG TABLET PO SCH (08:08)
[2021-02-02] MEDS: METOPROLOL SUCCINATE 25 MG TABLET PO SCH (08:09)
[2021-02-02] MEDS: CLOPIDOGREL 75 MG TABLET PO SCH (08:09)
[2021-02-02] MEDS: lisinopriL 5 MG TABLET PO SCH (08:09)
[2021-02-02] MEDS: SERTRALINE 50 MG TABLET PO SCH (08:10)
[2021-02-02] MEDS: ASPIRIN EC 81 MG TABLET PO SCH (08:10)
[2021-02-02] MEDS ORDERED: POTASSIUM CHLORIDE 20 MEQ TABLET PO ONE (08:57)
[2021-02-02] MEDS ORDERED: lisinopriL 5 MG TABLET PO SCH (09:00)
[2021-02-02] MEDS ORDERED: ENOXAPARIN 40 MG/0.4 ML SYRINGE SUBQ SCH (09:00)
[2021-02-02] MEDS ORDERED: NON FORMULARY MED (Lisinopril [Lisinopril] 10 MG Tablet) PO SCH (09:00)
--- NOTE | 2021-02-02 11:47 | PHARMACY PROGRESS NOTE ---
- Best Possible Medication History Admit Date and Time: 02/01/212141 Processed by: Pharmacy Medication History completed: Yes Patient Interview: Completed Secondary Source(s): Written medication list, Physician records, Pharmacy records, Insurance records (PATIENT ABLE TO CONFIRM HOME MEDICATIONS ) As the person ultimately responsible for medication therapy, providers are able to order a medication from an existing home medication list in [facility] via the "Reconcile Routine" prior to Confirmation of that medication by arch support technician. Such practice is discouraged except when the physician, in their clinical judgment, deems that a medical need exists for a medication without regard to previous use.
--- NOTE | 2021-02-02 17:03 | PROVIDER PROGRESS NOTE ---
Assessment/Plan - Problem List (1) Acute and chronic respiratory failure with hypoxia Assessment/Plan: Etiology: Multifactorial. Due to CHF exacerbation and COPD. Treatment as detailed below (2) CHF exacerbation Assessment/Plan: 620 mg IV twice daily. Metoprolol succinate 12.5 mg p.o. daily. Lisinopril 10 mg p.o. daily Spironolactone 25 mg p.o. daily Patient underlying coronary artery disease is likely contributing. Patient is yet to follow-up with her caltrans equipment operator Dr. Ryan regarding coronary artery disease. She is to either undergo stress test to confirm ischemia or an angiogram directly. She has an appointment on 02/20/2021. (3) COPD exacerbation Assessment/Plan: On albuterol, budesonide, Xopenex and montelukast. (4) Obesity (BMI 30-39.9) Assessment/Plan: Continue to encourage diet and exercise. (5) Vaginitis Assessment/Plan: Patient administered Diflucan. Nystatin cream to groin area on the pannus. (6) Yeast dermatitis Assessment/Plan: Patient administered Diflucan. Nystatin cream to groin area on the pannus. (7) CAD S/P percutaneous coronary angioplasty Assessment/Plan: LV wall motion abnormality was noted by echo several months ago. Patient is yet to follow-up with her caltrans equipment operator Dr. Ryan regarding coronary artery disease. She is to either undergo stress test to confirm ischemia or an angiogram directly. A limiting factor to her ability to make this appointment has been lack of supplemental oxygen. An order was made today 02/02/2021 for a portable oxygen concentrator. She has a cardiology appointment on 02/20/2021. On baby aspirin, Plavix 75 mg p.o. daily, lisinopril 10 mg p.o. daily, atorvastatin 40 mg p.o. every afternoon, metoprolol succinate 12.5 mg p.o. daily and nitroglycerin sublingual as needed. (8) Depression Qualifiers: Assessment/Plan: On sertraline 50 mg p.o. daily. (9) HTN (hypertension) Assessment/Plan: On lisinopril, metoprolol succinate, Lasix and spironolactone. - Current Meds Current Meds: Current Medications Generic Name Dose Route Start Last Admin Trade Name Freq PRN Reason Stop Dose Admin Aspirin 81 mg 02/02/21 09:00 02/02/21 08:10 Aspirin Ec 81 Mg Tablet PO 81 mg DAILY BETTYE Administration Budesonide 0.5 mg 02/02/21 07:00 02/02/21 07:40 Budesonide 0.5 Mg/2 Ml Neb INH 0.5 mg RTBID BETTYE Administration Clopidogrel Bisulfate 75 mg 02/02/21 09:00 02/02/21 08:09 Clopidogrel 75 Mg Tablet PO 75 mg DAILY BETTYE Administration Furosemide 20 mg 02/02/21 06:00 02/02/21 14:39 Furosemide 20 Mg/2 Ml Vial IVP 20 mg BIDDIURETIC BETTYE Administration Levalbuterol HCl 1.25 mg 02/01/21 22:00 02/02/21 13:43 Levalbuterol 1.25 Mg/3 Ml Neb INH 1.25 mg TID BETTYE Administration Lisinopril 10 mg 02/02/21 09:00 02/02/21 08:09 Lisinopril 5 Mg Tablet PO 10 mg DAILY BETTYE Administration Metoprolol Succinate 12.5 mg 02/02/21 09:00 02/02/21 08:09 Metoprolol Succinate 25 Mg Tablet PO 12.5 mg DAILY BETTYE Administration Montelukast Sodium 10 mg 02/01/21 22:00 02/01/21 23:04 Montelukast 10 Mg Tablet PO 10 mg QPM BETTYE Administration Nystatin 1 applic 02/02/21 00:06 02/02/21 08:10 Nystatin Cream 15 Gm Tube TOP 1 applic BID BETTYE Administration Sertraline HCl 50 mg 02/02/21 09:00 02/02/21 08:10 Sertraline 50 Mg Tablet PO 50 mg DAILY BETTYE Administration Sodium Chloride 10 ml 02/02/21 01:00 02/02/21 16:45 Sodium Chloride Flush 0.9% 10 Ml Syringe IVP Not Given 0100,0900,1700 BETTYE Spironolactone 25 mg 02/02/21 09:00 02/02/21 08:08 Spironolactone 25 Mg Tablet PO 25 mg DAILY BETTYE Administration - Lab Result Fish Bone Diagrams: 02/01/21 19:12 02/02/21 05:25 Subjective - Subjective Patient Reports: Other (Patient appeared uncomfortable in bed and had some conversational dyspnea. However she reported improvement in her breathing compared to the previous day. She denied chest pain but reported some abdominal upset) Objective Vital Signs: Vital Signs - 24 hr 02/01/21 02/01/21 02/01/21 19:06 21:16 22:30 Temperature 37.1 C 36.9 C Heart Rate 88 59 L Heart Rate [ 85 Brachial] Heart Rate [ Monitoring electrodes] Respiratory 16 16 24 Rate Blood Pressure 160/80 H 127/66 Blood Pressure 157/85 H [Left Brachial artery] Blood Pressure [Right Brachial artery] O2 Saturation 88 L 99 100 02/01/21 02/02/21 02/02/21 23:40 00:05 04:45 Temperature 36.3 C L 36.4 C L Heart Rate 64 Heart Rate [ 73 Brachial] Heart Rate [ 67 Monitoring electrodes] Respiratory 18 20 25 H Rate Blood Pressure Blood Pressure [Left Brachial artery] Blood Pressure 130/44 L 102/88 H [Right Brachial artery] O2 Saturation 96 94 02/02/21 02/02/21 02/02/21 07:21 07:41 12:20 Temperature 36.4 C L 36.6 C Heart Rate 70 Heart Rate [ 57 L 66 Brachial] Heart Rate [ Monitoring electrodes] Respiratory 20 18 22 Rate Blood Pressure Blood Pressure [Left Brachial artery] Blood Pressure 124/91 H 134/54 H [Right Brachial artery] O2 Saturation 94 93 02/02/21 02/02/21 13:43 15:55 Temperature 36.7 C Heart Rate 68 Heart Rate [ 65 Brachial] Heart Rate [ Monitoring electrodes] Respiratory 20 20 Rate Blood Pressure Blood Pressure [Left Brachial artery] Blood Pressure 124/45 L [Right Brachial artery] O2 Saturation 93 Oxygen O2 Source [Without Activity] Room air O2 Source [With Activity] Nasal cannula O2 Source Nasal cannula Oxygen Flow Rate 3 I&O (Last 24 Hrs): Intake and Output Totals x24h 01/31/21 02/01/21 02/02/21 23:59 23:59 23:59 Intake Total 1562 Output Total 1800 Balance -238 General: Alert, Oriented x3, Mild distress HEENT: PERRLA, EOMI Neck: Supple, No JVD Neuro: Alert, Oriented Times 3 Cardiovascular: Regular rate, Normal S1, Normal S2 Respiratory: Chest non-tender, No respiratory distress, Breath sounds nml, Other (Mild crackles bilaterally) Abdomen: Normal bowel sounds, Soft, No tenderness Extremities: No clubbing, No edema, No tenderness/swelling Skin: No rashes, No breakdown, No significant lesion - Results Results: Laboratory Results WBC 15.4 x10^3/uL (4.8-10.8) H 02/01/21 19:12 RBC 4.72 10^6/uL (4.20-5.40) 02/01/21 19:12 Hgb 13.2 g/dL (12.0-16.0) 02/01/21 19:12 Hct 41.7 % (37.0-47.0) 02/01/21 19:12 MCV 88.3 fL (81.0-99.0) 02/01/21 19:12 MCH 28.0 pg (27.0-31.0) 02/01/21 19:12 MCHC 31.7 g/dL (32.0-36.0) L 02/01/21 19:12 RDW 13.8 % (12.0-15.0) 02/01/21 19:12 Plt Count 426 10^3/uL (130-450) 02/01/21 19:12 MPV 10.4 fL (7.9-10.8) 02/01/21 19:12 Neut # (Auto) 12.3 10^3/uL (1.5-6.6) H 02/01/21 19:12 Lymph # (Auto) 1.9 10^3/uL (1.5-3.5) 02/01/21 19:12 Crook # (Auto) 0.8 10^3/uL (0.0-1.0) 02/01/21 19:12 Eos # (Auto) 0.3 10^3/uL (0.0-0.7) 02/01/21 19:12 Baso # (Auto) 0.1 10^3/uL (0.0-0.1) 02/01/21 19:12 Absolute Nucleated RBC 0.00 x10^3/uL 02/01/21 19:12 Nucleated RBC % 0.0 /100WBC 02/01/21 19:12 D-Dimer 263.8 ng/mL (200.0-255.0) H 02/01/21 19:58 VBG pH 7.415 (7.31-7.41) H 02/01/21 19:17 VBG pCO2 38.2 mmHg (41-51) L 02/01/21 19:17 VBG pO2 83.4 mmHg (25-47) H 02/01/21 19:17 VBG HCO3 23.9 mmol/L (23-28) 02/01/21 19:17 VBG Total CO2 25.1 mmol/L (24-29) 02/01/21 19:17 VBG O2 Saturation 96.5 % (60-80) H 02/01/21 19:17 VBG Base Excess -0.4 mmol/L (-2 - +2) 02/01/21 19:17 Sodium 142 mmol/L (135-145) 02/02/21 05:25 Potassium 3.3 mmol/L (3.5-5.0) L 02/02/21 05:25 Chloride 100 mmol/L (101-111) L 02/02/21 05:25 Carbon Dioxide 29 mmol/L (21-32) 02/02/21 05:25 Anion Gap 13.0 (6-13) 02/02/21 05:25 BUN 12 mg/dL (6-20) 02/02/21 05:25 Creatinine 0.7 mg/dL (0.4-1.0) 02/02/21 05:25 Estimated GFR (MDRD) 82 (>89) L 02/02/21 05:25 Glucose 134 mg/dL (70-100) H 02/02/21 05:25 Calcium 8.7 mg/dL (8.5-10.3) 02/02/21 05:25 Magnesium 1.9 mg/dL (1.7-2.8) 02/02/21 05:25 Total Bilirubin 0.5 mg/dL (0.2-1.0) 02/01/21 19:12 AST 18 IU/L (10-42) 02/01/21 19:12 ALT 22 IU/L (10-60) 02/01/21 19:12 Alkaline Phosphatase 102 IU/L (42-121) 02/01/21 19:12 Troponin I High Sens 14.5 ng/L (2.3-14.8) 02/02/21 05:25 B-Natriuretic Peptide 723 pg/mL (5-100) H 10/25/21 05:25 Total Protein 6.9 g/dL (6.7-8.2) 02/01/21 19:12 Albumin 3.4 g/dL (3.2-5.5) 02/01/21 19:12 Globulin 3.5 g/dL (2.1-4.2) 02/01/21 19:12 Albumin/Globulin Ratio 1.0 (1.0-2.2) 02/01/21 19:12 Lipase 24 U/L (22-51) 02/01/21 19:12 Nasal Adenovirus (PCR) NOT DETECTED 02/01/21 21:35 Nasal B. parapertussis DNA (PCR) NOT DETECTED 02/01/21 21:35 Nasal Coronavir 229E PCR NOT DETECTED 02/01/21 21:35 Nasal Coronavir HKU1 PCR NOT DETECTED 02/01/21 21:35 Nasal Coronavir NL63 PCR NOT DETECTED 02/01/21 21:35 Nasal Coronavir OC43 PCR NOT DETECTED 02/01/21 21:35 Nasal Enterovir/Rhinovir PCR NOT DETECTED 02/01/21 21:35 Nasal Influenza B PCR NOT DETECTED 02/01/21 21:35 Nasal Influenza A PCR NOT DETECTED 02/01/21 21:35 Nasal Parainfluen 1 PCR NOT DETECTED 02/01/21 21:35 Nasal Parainfluen 2 PCR NOT DETECTED 02/01/21 21:35 Nasal Parainfluen 3 PCR NOT DETECTED 02/01/21 21:35 Nasal Parainfluen 4 PCR NOT DETECTED 02/01/21 21:35 Nasal RSV (PCR) NOT DETECTED 02/01/21 21:35 Nasal B.pertussis DNA PCR NOT DETECTED 02/01/21 21:35 Nasal C.pneumoniae (PCR) NOT DETECTED 02/01/21 21:35 [place] Human Metapneumo PCR NOT DETECTED 02/01/21 21:35 Nasal M.pneumoniae (PCR) NOT DETECTED 02/01/21 21:35 Nasal SARS-CoV-2 (PCR) NOT DETECTED 02/01/21 21:35 ABX Reporting Has patient been on IV antibiotics over the past 48 hours?: No
[2021-02-02] MEDS: MONTELUKAST 10 MG TABLET PO SCH (20:38)
[2021-02-02] MEDS ORDERED: ATORVASTATIN 40 MG TABLET PO SCH (21:00)
[2021-02-03] MEDS: SODIUM CHLORIDE FLUSH 0.9% 10 ML SYRINGE IVP SCH ×2 (01:09→09:37)
[2021-02-03] MEDS: FUROSEMIDE 20 MG/2 ML VIAL IVP SCH ×3 (06:21→15:02)
[2021-02-03 08:31] LABS: BASOPHILS # (AUTO) 0.1 10^3/uL (0.0-0.1); BASOPHILS % (AUTO) 0.6 %; EOSINOPHILS # (AUTO) 0.2 10^3/uL (0.0-0.7); HCT - HEMATOCRIT 41.6 % (37.0-47.0); LYMPHOCYTES # (AUTO) 1.9 10^3/uL (1.5-3.5); LYMPHOCYTES % (AUTO) 16.5 %; MEAN CORPUSCULAR HGB CONC 31.3 g/dL (32.0-36.0); MEAN CORPUSCULAR VOLUME 89.5 fL (81.0-99.0); MEAN PLATELET VOLUME 10.6 fL (7.9-10.8); MONOCYTES # (AUTO) 0.7 10^3/uL (0.0-1.0); MONOCYTES % (AUTO) 6.3 %; NEUTROPHILS # (AUTO) 8.7 10^3/uL (1.5-6.6); PLT - PLATELET COUNT 381 10^3/uL (130-450); RED BLOOD COUNT 4.65 10^6/uL (4.20-5.40); RED CELL DISTRIBUTION WIDTH 14.1 % (12.0-15.0); WHITE BLOOD COUNT 11.7 x10^3/uL (4.8-10.8)
[2021-02-03 08:40] LABS: CALCIUM 9.1 mg/dL (8.5-10.3); CREATININE 0.7 mg/dL (0.4-1.0); POTASSIUM 3.7 mmol/L (3.5-5.0)
[2021-02-03] MEDS: BUDESONIDE 0.5 MG/2 ML NEB INH SCH (08:59)
[2021-02-03] MEDS: LEVALBUTEROL 1.25 MG/3 ML NEB INH SCH ×2 (08:59→15:36)
[2021-02-03] MEDS ORDERED: NYSTATIN POWDER 15 GM TOP SCH (09:00)
[2021-02-03] MEDS: METOPROLOL SUCCINATE 25 MG TABLET PO SCH (09:35)
[2021-02-03] MEDS: SERTRALINE 50 MG TABLET PO SCH (09:35)
[2021-02-03] MEDS: SPIRONOLACTONE 25 MG TABLET PO SCH (09:36)
[2021-02-03] MEDS: lisinopriL 5 MG TABLET PO SCH (09:36)
[2021-02-03] MEDS: CLOPIDOGREL 75 MG TABLET PO SCH (09:36)
[2021-02-03] MEDS: NYSTATIN CREAM 15 GM TUBE TOP SCH (09:38)
[2021-02-03] MEDS: ASPIRIN EC 81 MG TABLET PO SCH (09:40)
[2021-02-03 13:41] LABS: BILIRUBIN,URINE NEGATIVE (NEGATIVE); CLARITY,URINE CLEAR (CLEAR); GLUCOSE, URINE (UA) NEGATIVE (NEGATIVE); KETONES,URINE (UA) NEGATIVE (NEGATIVE); LEUKOCYTE ESTERASE, URINE TRACE (NEGATIVE); NITRITE,URINE NEGATIVE (NEGATIVE); OCCULT BLOOD,URINE NEGATIVE (NEGATIVE); PROTEIN,URINE NEGATIVE (NEGATIVE); UROBILINOGEN,URINE 0.2 (NORMAL) E.U./dL (NORMAL)
[2021-02-03 13:49] LABS: BACTERIA,URINE Rare /HPF (None Seen); RBC,URINE None Seen /HPF (0-5); SQUAMOUS EPITHELIAL CELL,UR FEW Squamous (<= Few); WBC,URINE 0-3 /HPF (0-5)
--- NOTE | 2021-02-03 14:50 | Discharge Plan ---
Discharge Plan Problem Reviewed?: Yes Disposition: Home, Self Care Condition: Stable Diet: Cardiac Activity Restrictions: Activity as Tolerated Shower Restrictions: No (fall precaution) Instruction Topics: COPD, Oxygen Home Use Health Concerns: COPD exacerbation, CHF exacerbation Plan of Treatment: You have recently ECHO study reveals wall motion abnormalities which have not yet been addressed by having either a stress test to confirm ischemia or going straight to an angiogram. You may address it with her new non morse intercept technician, Dr. Ryan at her February 20 appointment. You may resume your home medications. You have O2 Desaturation study in hospital, you may resume your home O2 schedule. Care Goals: Stabilization and improvement of your medical conditions Assessment: Discussed care plan with you, answered your questions, you understood. Additional Instructions or Follow Up instructions: You may follow-up with your PCP in 1 week, you may follow-up with your non morse intercept technician and adjunct teacher as out-patient. Should your symptoms return or worse, you may present to ER or call 911 for help. [facility]-Up Care: [facility], [facility] No Smoking: If you smoke, Please STOP! Call for help. Follow-up with: Nuno Bauman MD [Primary Care Provider] -
--- NOTE | 2021-02-03 15:21 | DISCHARGE SUMMARY ---
Discharge Summary Admit Date: 02/01/21 Discharge Date: 02/03/21 Discharging Provider: Calderon Kenney Primary Care Provider: Dr. Bauman Condition at Discharge: Stable Discharge Disposition: 01 Home, Self Care Discharge Facility Name: home - DIAGNOSES Discharge Diagnoses with Status of Each Condition: (1) Acute and chronic respiratory failure with hypoxia stable and resolved. Patient has no Acute respiratory distress. Patient had a 96% oxygen saturation on 2 L of oxygen. Patient take 2 L oxygen at home. Patient had oxygen desaturation study. Patient can continue home oxygen schedule without need of change (2) CHF exacerbation resolved. Patient has no Acute respiratory distress. BNP is reduced. Resume pat ient's home medications, Patient may follow-up with his wick tender on next months to Continue the management (3) COPD exacerbation resolved. Patient has no Acute respiratory distress. Patient had a 96% oxygen saturation on 2 L of oxygen. Resume home medications (4) CAD S/P percutaneous coronary angioplasty Pt's LV wall motion abnormalities which was noted by Echo for several months ago, have not yet been addressed by having either a stress test to confirm ischemia or going straight to an angiogram. This was discussed with the patient by admission physician and me. Pt state she will address it with her new Car Record Clerk, Dr. Ryan at her February 20 appointment. Patient will resume her home medication (5) HTN (hypertension) Stable (6) Depression Stable (7) Obesity (BMI 30-39.9) Advised patient loss of weight safely. (8) Vaginitis pt had a dose of Diflucan p.o. resume home Nystatin cream to her groin areas under the pannus (9) Yeast dermatitis stable, Resume home meds Nystatin cream. - HPI History of Present Illness: refer from Fani Wang's HPI on 02/01/21 This is a 71-year-old white female with a history of morbid obesity (BMI 39), coronary disease, CHF with EF of 45-50% with vivian-apical hypokinesis and diastolic heart failure, hypertension, hyperlipidemia, COPD on home oxygen chronically at 2 L. The patient presented to the ED with complaint of 2 days of rapidly worsening shortness of breath despite being compliant with her medications, her salt restriction and her oxygen. She denied fever or cough and had increased the o xygen setting on her own up to 3 L continuously. She has had 2 Covid shots/is vaccinated. Work-up today in the ED showed that she was very tachypneic with respiratory rate 35-50, had mildly elevated white blood count of 15, elevated BNP of 900 (is usually 600 at her best), and CXR report was unremarkable. She was given a dose of iv Lasix and is starting to diurese, but is still very tachypneic, even at rest. She has had 4 admissions here over the past year with the same presentation of shortness of breath and has needed treatment for CHF exacerbation, COPD exacerbation and pneumonia. At the most recent admission which was October 2020, she was chronically bradycardic and her Toprol dose was completely discontinued and she was discharged without a beta-vinita, but her new PCP, Dr Bauman had her resume it. She admits that she is depressed, hardly goes anywhere, hardly walks around except to prepare a frozen meal. She has been referred to the [facility] here for pulmonary rehab, cardiac rehab and/or CHF education classes. She had an CO in Apr 2019 and went to see Dr Giron but is changing to Dr Peña for her Cardiology (appointment on Feb 20). After her admissions her e, she has been advised to have follow-up for the abnormally depressed LVEF of 45-50 %, plus findings of regional wall motion abnormalities, which was first reported on Echo done here in 06/2020, but she has not had a work-up of this yet, she said. We discussed her [employer] wishes and she wants to be a DNI but is OK with CPR and defibrillation. - ALLERGIES Allergies/Adverse Reactions: Allergies Allergy/AdvReac Type Severity Reaction Status Date / Time Sulfa (Sulfonamide Allergy Hives Verified 02/01/21 19:06 Antibiotics) - MEDICATIONS Home Medications: Ambulatory Orders Medication Instructions Recorded Confirmed Aspirin [Aspirin EC] 81 mg PO DAILY 06/22/19 02/02/21 Atorvastatin Calcium 40 mg PO QPM 06/22/19 02/02/21 Clopidogrel Bisulfate [Clopidogrel] 75 mg PO DAILY 06/22/19 02/02/21 Nitroglycerin 0.4 mg SL Q5M PRN 06/22/19 02/02/21 lisinopriL [Lisinopril] 10 mg PO DAILY 12/01/19 02/02/21 Sertraline [Zoloft] 50 mg PO DAILY 06/11/20 02/02/21 Spironolactone [Aldactone] 25 mg PO DAILY 06/11/20 02/02/21 Nystatin Cream [Mycostatin Cream] 1 gm TOP BID #45 gr 06/12/20 02/02/21 Albuterol 2.5 mg INH Q4H PRN #30 neb 11/12/20 02/02/21 Formoterol Fumarate 20 mcg IH BID #30 neb 11/13/20 02/02/21 Furosemide [Lasix] 20 mg PO 0800,1200,1500 02/02/21 02/02/21 - PHYSICAL EXAM AT DISCHARGE General Appearance: positive: No acute distress, Alert. negative: Lethargic Eyes Bilateral: positive: Normal inspection, PERRL, No lid inflammation ENT: positive: ENT inspection nml, No signs of dehydration. negative: Purulent nasal drainage Neck: positive: Nml inspection, Trachea midline. negative: Thyromegaly, Tracheal deviation Respiratory: positive: Chest non-tender, No respiratory distress. negative: Wheezes Cardiovascular: positive: Regular rate & rhythm, No murmur. negative: Tachycardia, Bradycardia, Systolic murmur Peripheral Pulses: positive: 2+ Abdomen: positive: Non-tender, Nml bowel sounds, No distention. negative: Tenderness Back: positive: Nml inspection Skin: positive: Color nml, Warm, Dry. negative: Cyanosis Extremities: positive: Non-tender, Full ROM, Nml appearance. negative: Calf tenderness Neurologic/Psychiatric: positive: Oriented x3, Motor nml, Sensation nml. negative: Weakness, Sensory loss, Facial droop, Slurred/abnml speech, Depressed mood/affect - LABS Result Diagrams: 02/03/21 08:27 02/03/21 08:27 - FOLLOW UP Follow Up: You have recently ECHO study reveals wall motion abnormalities which have not yet been addressed by having either a stress test to confirm ischemia or going straight to an angiogram. You may address it with her new wick tender, Dr. Ryan at her February 20 appointment. You may resume your home medications. You have O2 Desaturation study in hospital, you may resume your home O2 schedule. You may follow-up with your PCP in 1 week, you may follow-up with your wick tender and materials engineering technician as out-patient. Should your symptoms return or worse, you may present to ER or call 911 for help. - TIME SPENT Time Spent in Discharge (Minutes): 30
[2021-02-03 15:58] VITALS: BP 125/54
[2021-02-03] MEDS ORDERED: FUROSEMIDE 20 MG TABLET PO ONE (16:00)
== END 2021-02-03 16:40 | disposition home or self-care (01) ==
LOC: ED 18:56 → UNDOADMOB 21:42 → MS2 21:42 → INTOOBSV 02-02 15:00 → OBSVTOIN 02-02 15:00
PROVIDERS: ADMIT Internal Medicine; ATTEND Nurse Practitioner Gerontology
DX: J96.21 Acute and chronic respiratory failure with hypoxia (principal); Z99.81 Dependence on supplemental oxygen; Z87.891 Personal history of nicotine dependence; I11.0 Hypertensive heart disease with heart failure; I50.43 Acute on chronic combined systolic (congestive) and diastolic (congestive) heart failure; J44.1 Chronic obstructive pulmonary disease with (acute) exacerbation; Z95.5 Presence of coronary angioplasty implant and graft; I25.10 Atherosclerotic heart disease of native coronary artery without angina pectoris; N76.0 Acute vaginitis; F32.9 Major depressive disorder, single episode, unspecified; E66.01 Morbid (severe) obesity due to excess calories; Z68.41 Body mass index [BMI] 40.0-44.9, adult; E78.5 Hyperlipidemia, unspecified; L30.8 Other specified dermatitis; F41.9 Anxiety disorder, unspecified; I25.2 Old myocardial infarction; Z20.822 Contact with and (suspected) exposure to COVID-19
CPT/HCPCS: 36415; 71045; 80048; 80053; 81001; 82803; 83690; 83735; 83880; 84484; 85025; 85379; 87086; 87631; 93005; 94640; 96372; 96374; 96376; 99284; 99285; A9270; G0378; J1650; J7626; 0202U

== ENCOUNTER 2021-07-01 14:56 | Emergency (ER) | payer MEDICARE ==
[2021-07-01] MEDS ORDERED: IPRATROPIUM/ALBUTEROL 3 ML NEB INH STA (16:04)
[2021-07-01] MEDS ORDERED: methylPREDNISolone SUCCINATE 125 MG/2 ML VIAL IVP STA (16:08)
--- NOTE | 2021-07-01 16:13 | ED Physician Documentation ---
History of Present Illness - Stated complaint Stated Complaint: SOA - Chief complaint Chief Complaint: Resp - History obtained from History obtained from: Patient - History of Present Illness Timing: How many days ago Pain level max: 0 Pain level now: 0 - Additonal information Additional information: 71-year-old female, history of COPD, on 2 L of home oxygen 01/11 presents to the emergency department with increasing difficulty over the past several days. Has not been on steroids recently. No fevers. Increased cough. No abdominal pain. No chest pain. Worse with walking, better with resting. No Covid exposures. Has had 2 Covid vaccinations. Review of Systems Constitutional: denies: Fever, Chills Respiratory: denies: Cough GI: denies: Abdominal Pain, Nausea, Vomiting, Diarrhea : denies: Dysuria Skin: denies: Rash Musculoskeletal: denies: Neck pain, Back pain Neurologic: denies: Headache PD PAST MEDICAL HISTORY - Past Medical History Cardiovascular: Congestive heart failure, Hypertension, High cholesterol, Coronary artery disease, CA (Her CA sx was burping and severe SOB, she had no chest pain.) Respiratory: COPD, Other (She has just receivied a new portable O2 tank with 4-5 hour battery (the old battery sal lasted 1 hour).) Neuro: None Endocrine/Autoimmune: None GI: None 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: 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 : None HEENT: None Psych: Depression, Anxiety Musculoskeletal: None Derm: Other (Gets frequent yeast infections in her groin and currently has vaginitis.) - Past Surgical History Past Surgical History: Yes General: Cholecystectomy, Appendectomy Cardiovascular: Coronary stent HEENT: Tonsil/Adenoidectomy - Present Medications Home Medications: Ambulatory Orders Medication Instructions Recorded Confirmed Aspirin [Aspirin EC] 81 mg PO DAILY 06/22/19 02/02/21 Atorvastatin Calcium 40 mg PO QPM 06/22/19 02/02/21 Clopidogrel Bisulfate [Clopidogrel] 75 mg PO DAILY 06/22/19 02/02/21 Nitroglycerin 0.4 mg SL Q5M PRN 06/22/19 02/02/21 lisinopriL [Lisinopril] 10 mg PO DAILY 12/01/19 02/02/21 Sertraline [Zoloft] 50 mg PO DAILY 06/11/20 02/02/21 Spironolactone [Aldactone] 25 mg PO DAILY 06/11/20 02/02/21 Nystatin Cream [Mycostatin Cream] 1 gm TOP BID #45 gr 06/12/20 02/02/21 Albuterol 2.5 mg INH Q4H PRN #30 neb 11/12/20 02/02/21 Formoterol Fumarate 20 mcg IH BID #30 neb 11/13/20 02/02/21 Furosemide [Lasix] 20 mg PO 0800,1200,1500 02/02/21 02/02/21 Amox/Clav 875/125 [Augmentin] 1 tab PO Q12H #20 tablet 07/01/21 Doxycycline Monohydrate 100 mg PO BID #20 cap 07/01/21 predniSONE [Deltasone] 10 mg PO [id number] #42 tab 07/01/21 - Allergies Allergies/Adverse Reactions: Allergies Allergy/AdvReac Type Severity Reaction Status Date / Time Sulfa (Sulfonamide Allergy Hives Verified 07/01/21 15:06 Antibiotics) - Social History Does the pt smoke?: No Smoking Status: Former smoker Does the pt drink ETOH?: No Does the pt have substance abuse?: No - Immunizations Immunizations are current?: Yes - POLST Patient has POLST: No POLST Status: WantsDNI/but CPR&defib [place] PD ED PE NORMAL - Vitals Vital signs reviewed: Yes - General General: Alert and oriented X 3, No acute distress, Well developed/nourished - HEENT HEENT: PERRL, Moist mucous membranes - Neck Neck: Supple, no meningeal sign - Cardiac Cardiac: RRR, Strong equal pulses - Respiratory Respiratory: No respiratory distress, Other (Diminished breath sounds bilaterally, wheezing) - Abdomen Abdomen: Soft, Non tender, Non distended - Derm Derm: Warm and dry - Extremities Extremities: No edema - Neuro Neuro: Alert and oriented X 3 - Psych Psych: Normal mood, Normal affect Results - Vitals Vitals: Vital Signs - 24 hr 07/01/21 07/01/21 07/01/21 15:02 15:50 17:05 Temperature 36.4 C L Heart Rate 88 69 80 Respiratory 24 30 H 28 H Rate Blood Pressure 151/72 H 143/120 H 138/104 H O2 Saturation 95 96 99 07/01/21 07/01/21 17:25 18:21 Temperature 36.4 C L Heart Rate 63 80 Respiratory 19 20 Rate Blood Pressure 134/88 H O2 Saturation 97 Oxygen O2 Source [Without Activity] Room air O2 Source [With Activity] Nasal cannula O2 Source Nasal cannula Oxygen Flow Rate 2 - Labs Labs: Laboratory Tests 07/01/21 07/01/21 07/01/21 16:10 16:10 16:10 WBC 15.3 H RBC 5.54 H Hgb 14.6 Hct 46.7 MCV 84.3 MCH 26.4 L MCHC 31.3 L RDW 14.3 Plt Count 438 MPV 10.1 Neut # (Auto) 13.3 H Lymph # (Auto) 1.0 L [place] # (Auto) 0.7 Eos # (Auto) 0.1 Baso # (Auto) 0.1 Absolute Nucleated RBC 0.00 Nucleated RBC % 0.0 Sodium 134 L Potassium 4.2 Chloride 101 Carbon Dioxide 23 Anion Gap 10.0 BUN 9 Creatinine 0.7 Estimated GFR (MDRD) 82 L Glucose 172 H Calcium 8.7 Total Bilirubin 0.8 AST 14 ALT 13 Alkaline Phosphatase 99 Total Protein 7.1 Albumin 3.4 Globulin 3.7 Albumin/Globulin Ratio 0.9 L Lipase 19 L Nasal Adenovirus (PCR) NOT DETECTED Nasal B. parapertussis DNA (PCR) NOT DETECTED Nasal Coronavir 229E PCR NOT DETECTED Nasal Coronavir HKU1 PCR NOT DETECTED Nasal Coronavir NL63 PCR NOT DETECTED Nasal Coronavir OC43 PCR NOT DETECTED Nasal Enterovir/Rhinovir PCR NOT DETECTED Nasal Influenza B PCR NOT DETECTED Nasal Influenza A PCR NOT DETECTED Nasal Parainfluen 1 PCR NOT DETECTED Nasal Parainfluen 2 PCR NOT DETECTED Nasal Parainfluen 3 PCR NOT DETECTED Nasal Parainfluen 4 PCR NOT DETECTED Nasal RSV (PCR) NOT DETECTED Nasal B.pertussis DNA PCR NOT DETECTED Nasal C.pneumoniae (PCR) NOT DETECTED [place] Human Metapneumo PCR NOT DETECTED Nasal M.pneumoniae (PCR) NOT DETECTED Nasal SARS-CoV-2 (PCR) NOT DETECTED - Rads (name of study) Chest x-ray Radiology: Final report received, EMP read contemporaneously, See rad report (No acute cardiopulmonary abnormality) PD MEDICAL DECISION MAKING - ED course Complexity details: reviewed results, re-evaluated patient, considered differential, d/w patient ED course: Patient is a 71-year-old female who presents to the emergency department with what appears to be a COPD exacerbation. She is on her normal home oxygen, not requiring any further supplementation. Mild wheezing. Feels better after steroids and DuoNeb treatment. Will treat as COPD exacerbation. Given antibiotics here. Will prescribe antibiotics and steroids for home. Given steroids here as well. Patient counseled regarding signs and symptoms for which I believe and urgent re-evaluation would be necessary. Patient with good understanding of and agreement to plan and is comfortable going home at this time This document was made in part using voice recognition software. While efforts are made to proofread this document, sound alike and grammatical errors may occur. Departure - Departure Disposition: 01 Home, Self Care Clinical Impression: Acute exacerbation of chronic obstructive pulmonary disease (COPD) Condition: Good Instructions: ED COPD Flare Follow-Up: your,doctor in 3 days [Other] Prescriptions: Amox/Clav 875/125 [Augmentin] 1 tab PO Q12H #20 tablet predniSONE [Deltasone] 10 mg PO [id number] #42 tab Doxycycline Monohydrate 100 mg PO BID #20 cap Comments: Continue your current medications at home. Return if you worsen. Take all antibiotics until gone. You should start to improve within the next 2 to 3 days. Your prescriptions were sent to [facility] in [place]. Discharge Date/Time: 07/01/21 18:35
[2021-07-01 16:14] LABS: BASOPHILS # (AUTO) 0.1 10^3/uL (0.0-0.1); BASOPHILS % (AUTO) 0.5 %; EOSINOPHILS # (AUTO) 0.1 10^3/uL (0.0-0.7); EOSINOPHILS % (AUTO) 0.5 %; HCT - HEMATOCRIT 46.7 % (37.0-47.0); HGB - HEMOGLOBIN 14.6 g/dL (12.0-16.0); LYMPHOCYTES % (AUTO) 6.7 %; MEAN CORPUSCULAR HEMOGLOBIN 26.4 pg (27.0-31.0); MEAN CORPUSCULAR HGB CONC 31.3 g/dL (32.0-36.0); MEAN CORPUSCULAR VOLUME 84.3 fL (81.0-99.0); MEAN PLATELET VOLUME 10.1 fL (7.9-10.8); MONOCYTES # (AUTO) 0.7 10^3/uL (0.0-1.0); MONOCYTES % (AUTO) 4.7 %; NEUTROPHILS # (AUTO) 13.3 10^3/uL (1.5-6.6); NEUTROPHILS % (AUTO) 87.2 %; PLT - PLATELET COUNT 438 10^3/uL (130-450); RED BLOOD COUNT 5.54 10^6/uL (4.20-5.40); RED CELL DISTRIBUTION WIDTH 14.3 % (12.0-15.0); WHITE BLOOD COUNT 15.3 x10^3/uL (4.8-10.8)
[2021-07-01 16:27] LABS: ALBUMIN 3.4 g/dL (3.2-5.5); ALBUMIN/GLOBULIN RATIO 0.9 (1.0-2.2); BILIRUBIN,TOTAL 0.8 mg/dL (0.2-1.0); CALCIUM 8.7 mg/dL (8.5-10.3); CREATININE 0.7 mg/dL (0.4-1.0); POTASSIUM 4.2 mmol/L (3.5-5.0); TOTAL PROTEIN 7.1 g/dL (6.7-8.2)
--- NOTE | 2021-07-01 16:37 | XRAY Report ---
PROCEDURE: Chest 1 View X-Ray INDICATIONS: cough TECHNIQUE: One view of the chest was acquired. COMPARISON: February 01, 2021 FINDINGS: SUPPORT DEVICES: None. LUNGS/PLEURA: Redemonstrated coarsened interstitial markings. No focal consolidation, pleural effusio n or space-occupying pneumothorax. MEDIASTINUM: The cardiac silhouette is upper limits of normal, which may be exaggerated by patient ro tation and technique. BONES/SOFT TISSUES: No acute abnormality. IMPRESSION: 1.No acute cardiopulmonary abnormality. Reviewed by: Flavio Padilla MD on 07/01/2021 4:35 PM PDT Approved by: Flavio Padilla MD on 07/01/2021 4:35 PM PDT Station ID: [id number]
[2021-07-01 17:10] LABS: B. PARAPERTUSSIS- RESP PCR PAN NOT DETECTED; B. PERTUSSIS- RESP PCR PANEL NOT DETECTED; C. PNEUMONIAE- RESP PCR PANEL NOT DETECTED; CORONAVIRUS 229E-RESP PCR NOT DETECTED; CORONAVIRUS HKU1-RESP PCR NOT DETECTED; CORONAVIRUS NL63-RESP PCR NOT DETECTED; CORONAVIRUS OC43-RESP PCR NOT DETECTED; HUMAN METAPNEUMOVIRUS NOT DETECTED; INFLUENZA A- RESP PCR PANEL NOT DETECTED; INFLUENZA B - RESP PCR PANEL NOT DETECTED; M. PNEUMONIAE- RESP PCR PANEL NOT DETECTED; PARAINFLUENZA VIRUS 1 NOT DETECTED; PARAINFLUENZA VIRUS 2 NOT DETECTED; PARAINFLUENZA VIRUS 3 NOT DETECTED; PARAINFLUENZA VIRUS 4 NOT DETECTED; RHINOVIRUS/ENTEROVIRUS NOT DETECTED; RSV- RESP PCR PANEL NOT DETECTED; SARS-CoV-2 -RESP PCR PANEL NOT DETECTED
[2021-07-01] MEDS ORDERED: AMOX/CLAV 875 MG/125 MG TABLET PO STA (17:59)
[2021-07-01] MEDS ORDERED: DOXYCYCLINE 100 MG TABLET PO STA (17:59)
[2021-07-01 18:23] VITALS: BP 134/88
== END 2021-07-01 18:35 | disposition home or self-care (01) ==
LOC: ED 14:56
DX: J44.1 Chronic obstructive pulmonary disease with (acute) exacerbation (principal); Z99.81 Dependence on supplemental oxygen; Z87.891 Personal history of nicotine dependence; Z20.822 Contact with and (suspected) exposure to COVID-19
CPT/HCPCS: 36415; 71045; 80053; 83690; 85025; 87631; 94640; 96374; 99283; 99284; A9270; 0202U

== ENCOUNTER 2021-07-05 15:17 | Outpatient (CLI) | payer MEDICARE | END 2021-07-05 15:18 | disposition short-term general hospital (02) | LOC: EMS 15:17 | PROVIDERS: ATTEND Internal Medicine | DX: I21.4 Non-ST elevation (NSTEMI) myocardial infarction (principal); J81.0 Acute pulmonary edema | CPT/HCPCS: A0425; A0426 ==

== ENCOUNTER 2022-06-27 14:11 | Inpatient (IN) | payer MEDICARE ==
[2022-06-27] MEDS ORDERED: FUROSEMIDE 40 MG/4 ML VIAL IVP STA (14:59)
--- NOTE | 2022-06-27 15:00 | XRAY Report ---
PROCEDURE: Chest 1 View X-Ray INDICATIONS: Chest Pain TECHNIQUE: One view of the chest was acquired. COMPARISON: Chest radiograph July 04, 2021 FINDINGS: Surgical changes and devices: None. Lungs and pleura: Prominent interstitial markings with increased vascularity. The left lower lung is obscured. Probable left greater than right pleural effusion. No pneumothorax. Mediastinum: Mediastinal contours appear normal. Heart size is enlarged. Bones and chest wall: No suspicious bony lesions. Overlying soft tissues appear unremarkable. IMPRESSION: 1.Cardiomegaly with interstitial prominence and probable pleural effusions is suggestive of pulmonary edema. 2.Possible pneumonia of the left lower lobe. Reviewed by: Otilio Hughes MD on 06/27/2022 1:59 PM LYLE Approved by: Otilio Hguhes MD on 06/27/2022 1:59 PM LYLE Station ID: [id number]
--- NOTE | 2022-06-27 15:00 | ED Physician Documentation ---
History of Present Illness - Stated complaint Stated Complaint: SOA - Chief complaint Chief Complaint: Resp - Additonal information Additional information: 72-year-old female who has a history of hypertension, congestive heart failure and COPD oxygen dependent, presents to the emergency department with exertional dyspnea that been worsening over the last several weeks. She has mostly a dry cough. No fevers. She denies missing any doses of her Lasix or her maintenance medications. She denies any chest pain though says she has had silent heart attacks in the past. Currently she is unable to walk even 1 to 2 feet without being progressively short of air. Review of Systems Constitutional: denies: Fever Nose: reports: Reviewed and negative Throat: reports: Reviewed and negative Cardiac: denies: Chest pain / pressure, Palpitations, Pedal edema, Calf pain Respiratory: reports: Dyspnea, Cough. 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 : None HEENT: None Psych: Depression, Anxiety Musculoskeletal: None Derm: Other - Past Surgical History Past Surgical History: Yes General: Cholecystectomy, Appendectomy Cardiovascular: Coronary stent HEENT: Tonsil/Adenoidectomy - Present Medications Home Medications: Ambulatory Orders Medication Instructions Recorded Confirmed Aspirin [Aspirin EC] 81 mg PO DAILY 06/22/19 07/04/21 Atorvastatin Calcium 40 mg PO QPM 06/22/19 07/04/21 Clopidogrel Bisulfate [Clopidogrel] 75 mg PO DAILY 06/22/19 07/04/21 Nitroglycerin 0.4 mg SL Q5M PRN 06/22/19 07/04/21 lisinopriL [Lisinopril] 10 mg PO DAILY 12/01/19 07/04/21 Sertraline [Zoloft] 50 mg PO DAILY 06/11/20 07/04/21 Spironolactone [Aldactone] 25 mg PO DAILY 06/11/20 07/04/21 Nystatin Cream [Mycostatin Cream] 1 gm TOP BID #45 gr 06/12/20 07/04/21 Albuterol 2.5 mg INH Q4H PRN #30 neb 11/12/20 07/04/21 Formoterol Fumarate 20 mcg IH BID #30 neb 11/13/20 07/04/21 Furosemide [Lasix] 20 mg PO 0800,1200,1500 02/02/21 07/04/21 Amox/Clav 875/125 [Augmentin] 1 tab PO Q12H #20 tablet 07/01/21 07/04/21 Doxycycline Monohydrate 100 mg PO BID #20 cap 07/01/21 07/04/21 predniSONE [Deltasone] 10 mg PO [id number] #42 tab 07/01/21 07/04/21 Metoprolol Succinate [Toprol Xl] 50 mg PO DAILY 07/04/21 07/04/21 - Allergies Allergies/Adverse Reactions: Allergies Allergy/AdvReac Type Severity Reaction Status Date / Time Sulfa (Sulfonamide Allergy Hives Verified 07/01/21 15:06 Antibiotics) - Social History Does the pt smoke?: No Smoking Status: Never smoker Does the pt drink ETOH?: No Does the pt have substance abuse?: No - Immunizations Immunizations are current?: Yes - POLST Patient has POLST: No POLST Status: WantsDNI/but CPR&defib [place] PD ED PE NORMAL - General General: Alert and oriented X 3. No: No acute distress (Appears dyspneic and labored at the bedside. Speaking 2-3 word sentences. Mild tachypnea. Saturating 93% on 3 L), Well developed/nourished (Obese) - HEENT HEENT: Atraumatic, Moist mucous membranes - Cardiac Cardiac: RRR, Strong equal pulses. No: No murmur - Respiratory Respiratory: No: No respiratory distress (Saturating 93% on 3 L. Mild tachypnea in the mid 20s. Dyspneic and labored. Distant breath sounds globally though no obvious wheeze, crackles or rails) - Back Back: No CVA TTP, No spinal TTP - Derm Derm: Normal color, Warm and dry - Extremities Extremities: No deformity, No tenderness to palpate. No: No edema (No pedal edema bilaterally) - Neuro Neuro: Alert and oriented X 3, barrel assembler helper 2-12 intact Eye Opening: Spontaneous Motor: Obeys Commands Verbal: Oriented GCS Score: 15 Results - Vitals Vitals: Vital Signs - 24 hr 06/27/22 06/27/22 06/27/22 14:33 15:00 16:00 Temperature 36.7 C Heart Rate 69 68 73 Respiratory 24 19 25 H Rate Blood Pressure 137/51 H 167/64 H 140/84 H O2 Saturation 93 95 97 If not protocol 2 : Oxygen Flow, liters/minute 06/27/22 06/27/22 06/27/22 16:52 16:59 17:25 Temperature 36.3 C L Heart Rate 79 90 Respiratory 18 22 Rate Blood Pressure 150/85 H O2 Saturation 97 If not protocol 2 2 : Oxygen Flow, liters/minute Oxygen O2 Source [] Room air O2 Source [] Nasal cannula O2 Source Nasal cannula Oxygen Flow Rate 2 - EKG (time done) 1534 EKG releavant findings:: EKG personally interpreted by author of this note. Relevant findings are: Rate: Rate (enter#) (78) Rhythm: NSR, Other (PVC) Ischemia: Q waves (inferior and anterior leads;) Compare to prior EKG: Unchanged from prior EKG (no significant changes from june 2021) - Labs Labs: Laboratory Tests 06/27/22 06/27/22 06/27/22 15:09 15:14 15:14 WBC 12.7 H RBC 5.26 Hgb 13.6 Hct 46.7 MCV 88.8 MCH 25.9 L MCHC 29.1 L RDW 14.2 Plt Count 380 MPV 10.0 Neut # (Auto) 10.4 H Lymph # (Auto) 1.3 L [place] # (Auto) 0.6 Eos # (Auto) 0.3 Baso # (Auto) 0.1 Absolute Nucleated RBC 0.00 Nucleated RBC % 0.0 PT 12.1 INR 1.1 Sodium Potassium Chloride Carbon Dioxide Anion Gap BUN Creatinine Estimated GFR (MDRD) Glucose Calcium Total Bilirubin AST ALT Alkaline Phosphatase Troponin I High Sens B-Natriuretic Peptide Total Protein Albumin Globulin Albumin/Globulin Ratio Lipase Nasal Adenovirus (PCR) NOT DETECTED Nasal B. parapertussis DNA (PCR) NOT DETECTED Nasal Coronavir 229E PCR NOT DETECTED Nasal Coronavir HKU1 PCR NOT DETECTED Nasal Coronavir NL63 PCR NOT DETECTED Nasal Coronavir OC43 PCR NOT DETECTED Nasal Enterovir/Rhinovir PCR NOT DETECTED Nasal Influenza B PCR NOT DETECTED Nasal Influenza A PCR NOT DETECTED Nasal Parainfluen 1 PCR NOT DETECTED Nasal Parainfluen 2 PCR NOT DETECTED Nasal Parainfluen 3 PCR NOT DETECTED Nasal Parainfluen 4 PCR NOT DETECTED Nasal RSV (PCR) NOT DETECTED Nasal B.pertussis DNA PCR NOT DETECTED Nasal C.pneumoniae (PCR) NOT DETECTED [place] Human Metapneumo PCR NOT DETECTED Nasal M.pneumoniae (PCR) NOT DETECTED Nasal SARS-CoV-2 (PCR) NOT DETECTED 06/27/22 06/27/22 06/27/22 15:14 15:14 15:14 WBC RBC Hgb Hct MCV MCH MCHC RDW Plt Count MPV Neut # (Auto) Lymph # (Auto) [place] # (Auto) Eos # (Auto) Baso # (Auto) Absolute Nucleated RBC Nucleated RBC % PT INR Sodium 138 Potassium 3.9 Chloride 101 Carbon Dioxide 30 Anion Gap 7.0 BUN 8 Creatinine 0.8 Estimated GFR (MDRD) 71 L Glucose 155 H Calcium 8.5 Total Bilirubin 0.4 AST 11 ALT 13 Alkaline Phosphatase 71 Troponin I High Sens 12.4 B-Natriuretic Peptide 857 H Total Protein 7.2 Albumin 3.4 Globulin 3.8 Albumin/Globulin Ratio 0.9 L Lipase 23 Nasal Adenovirus (PCR) Nasal B. parapertussis DNA (PCR) Nasal Coronavir 229E PCR Nasal Coronavir HKU1 PCR Nasal Coronavir NL63 PCR Nasal Coronavir OC43 PCR Nasal Enterovir/Rhinovir PCR Nasal Influenza B PCR Nasal Influenza A PCR Nasal Parainfluen 1 PCR Nasal Parainfluen 2 PCR Nasal Parainfluen 3 PCR Nasal Parainfluen 4 PCR Nasal RSV (PCR) Nasal B.pertussis DNA PCR Nasal C.pneumoniae (PCR) [place] Human Metapneumo PCR Nasal M.pneumoniae (PCR) Nasal SARS-CoV-2 (PCR) - Rads (name of study) cxr Relevant Findings:: Final report received (Cardiomegaly with interstitial prominence and probable pleural effusions is suggestive of pulmonary edema. Possible pneumonia of the left lower lobe) CTA chest Relevant Findings:: Final report received (No pulmonary embolus. Consolidation of the left lower lobe likely reflects compressive atelectasis secondary to loculated pleural effusion. Cardiomegaly. Dilation of the pulmonary artery suggestive of pulmonary hypertension) PD Medical Decision Making - ED course Complexity details: reviewed results, re-evaluated patient, considered differential, d/w patient ED course: This is a 72-year-old female that presents emergency department for evaluation of several weeks worsening dyspnea. She does have a history of COPD, congestive heart failure as well as previous DE. She states that she is compliant with all her medications including the furosemide. She has had no fevers. Mostly has a dry cough. Has not developed any lower extremity edema or had any weight gain. On presentation to the emergency department she is saturating 93% on 2 to 3 L nasal cannula which is her normal. However she is quite labored and tachypneic. Cardiopulmonary auscultation reveals diminished breath sounds throughout without crackles or wheeze. I did obtain an EKG which has diffuse Q waves in the inferior and anterior lateral leads but is essentially unchanged from a previous EKG. Her CBC today showed no acute worrisome abnormalities. Her electrolytes showed a preserved renal function. Her BNP today is 854. This is lower than it has historically been. Her troponin was negative. Given the worsening exertional dyspnea a CT of the chest was completed as a chest x-ray showed cardiomegaly and volume overload with the possibility of a left lower lobe pneumonia. The CT angio showed no findings of pulmonary edema though she does have a loculated pleural effusion. She also has a markedly dilated pulmonary artery. The loculated pleural effusion is new but I do not believe it is contributing significantly to her symptoms. This is something that should be followed closely as an outpatient and she may benefit from a VATS procedure In conjunction the constellation of her symptoms with exertional dyspnea. Lack of edema. No significant elevation in BNP as well as a dilated pulmonary artery likely leads us to believe that she has cor pulmonale or right-sided heart failure. Here in the emergency department she was administered 40 mg of Lasix and despite adequate diuresis does not have improved dyspnea. Albuterol and Atrovent were also administered without improvement symptoms. Given this I discussed the case with our hospitalist Dr. Sanot who graciously agrees to admit the patient for further evaluation and management of her what I believed to be right-sided heart failure or cor pulmonale. Departure - Departure Disposition: 66 [facility] DC/Xfer Clinical Impression: Cor pulmonale, Exertional shortness of breath, CHF (congestive heart failure)
[2022-06-27 15:24] LABS: BASOPHILS # (AUTO) 0.1 10^3/uL (0.0-0.1); BASOPHILS % (AUTO) 0.5 %; EOSINOPHILS # (AUTO) 0.3 10^3/uL (0.0-0.7); HCT - HEMATOCRIT 46.7 % (37.0-47.0); HGB - HEMOGLOBIN 13.6 g/dL (12.0-16.0); LYMPHOCYTES # (AUTO) 1.3 10^3/uL (1.5-3.5); LYMPHOCYTES % (AUTO) 9.9 %; MEAN CORPUSCULAR HEMOGLOBIN 25.9 pg (27.0-31.0); MEAN CORPUSCULAR HGB CONC 29.1 g/dL (32.0-36.0); MEAN CORPUSCULAR VOLUME 88.8 fL (81.0-99.0); MONOCYTES # (AUTO) 0.6 10^3/uL (0.0-1.0); NEUTROPHILS # (AUTO) 10.4 10^3/uL (1.5-6.6); NEUTROPHILS % (AUTO) 82.3 %; PLT - PLATELET COUNT 380 10^3/uL (130-450); RED BLOOD COUNT 5.26 10^6/uL (4.20-5.40); RED CELL DISTRIBUTION WIDTH 14.2 % (12.0-15.0); WHITE BLOOD COUNT 12.7 x10^3/uL (4.8-10.8)
[2022-06-27 15:35] LABS: ALBUMIN 3.4 g/dL (3.2-5.5); ALBUMIN/GLOBULIN RATIO 0.9 (1.0-2.2); BILIRUBIN,TOTAL 0.4 mg/dL (0.2-1.0); CALCIUM 8.5 mg/dL (8.5-10.3); CREATININE 0.8 mg/dL (0.4-1.0); INR 1.1 (0.8-1.2); POTASSIUM 3.9 mmol/L (3.5-5.0); PT - PROTHROMBIN TIME 12.1 secs (9.9-12.6); TOTAL PROTEIN 7.2 g/dL (6.7-8.2)
[2022-06-27] MEDS ORDERED: iohexoL-300 100 ML VIAL ONE (15:56)
[2022-06-27 16:13] LABS: B. PARAPERTUSSIS- RESP PCR PAN NOT DETECTED; B. PERTUSSIS- RESP PCR PANEL NOT DETECTED; C. PNEUMONIAE- RESP PCR PANEL NOT DETECTED; CORONAVIRUS 229E-RESP PCR NOT DETECTED; CORONAVIRUS HKU1-RESP PCR NOT DETECTED; CORONAVIRUS NL63-RESP PCR NOT DETECTED; CORONAVIRUS OC43-RESP PCR NOT DETECTED; HUMAN METAPNEUMOVIRUS NOT DETECTED; INFLUENZA A- RESP PCR PANEL NOT DETECTED; INFLUENZA B - RESP PCR PANEL NOT DETECTED; M. PNEUMONIAE- RESP PCR PANEL NOT DETECTED; PARAINFLUENZA VIRUS 1 NOT DETECTED; PARAINFLUENZA VIRUS 2 NOT DETECTED; PARAINFLUENZA VIRUS 3 NOT DETECTED; PARAINFLUENZA VIRUS 4 NOT DETECTED; RHINOVIRUS/ENTEROVIRUS NOT DETECTED; RSV- RESP PCR PANEL NOT DETECTED; SARS-CoV-2 -RESP PCR PANEL NOT DETECTED
[2022-06-27] MEDS ORDERED: iohexoL-300 100 ML VIAL IVP ONE (16:26)
--- NOTE | 2022-06-27 16:53 | CT Report ---
PROCEDURE: ANGIO CHEST W/WO INDICATIONS: dyspnea; chf CONTRAST: 80 omni 300 TECHNIQUE: After the administration of intravenous contrast, 2 mm axial images were acquired from the pulmonary apices to the posterior costophrenic angles during the arterial phase. In addition, 1 mm lung kernel and 5 mm soft tissue kernel reconstructions were performed. 3-dimensional coronal oblique maximum int ensity projection (MIP) reformats, 8 mm axial MIP, and 5 mm coronal and sagittal MPR reformats were t hen performed through the thorax. For radiation dose reduction, the following was used: automated exp osure control, adjustment of mA and/or kV according to patient size. COMPARISON: Chest radiograph from same date, CTA November 08, 2020 FINDINGS: Image quality: Exam is degraded by patient habitus. Pulmonary arteries: Pulmonary arteries are enlarged measuring 2.7 on the right and 2.6 on the left. No intraluminal filling defects to suggest central pulmonary embolism. Lungs and pleura: Left pleural effusion with a loculated appearance along the posterior superior ple ural extending into the major fissure. Left lower lobe atelectasis. Central and peripheral airways a re patent. Mediastinum: Cardiomegaly, without pericardial effusion. Right hilar lymphadenopathy. Thoracic aorta is normal in caliber and enhancement. Esophagus is normal in caliber, without hiatal hernia. Bones and chest wall: No suspicious bony lesions. Ribs and thoracic spine appear intact throughout. No axillary or supraclavicular adenopathy. The thyroid is normal in size and there are no incident al findings. Abdomen: Visualized upper abdominal solid organs appear normal in the early arterial phase of enhanc ement. IMPRESSION: 1.No pulmonary embolus. 2.Consolidation of the left lower lobe likely reflects compressive atelectasis secondary to loculated left pleural effusion. 3.Cardiomegaly. 4.Dilation of the pulmonary artery suggestive of pulmonary hypertension. Reviewed by: Otilio Hughes MD on 06/27/2022 3:52 PM AKDT Approved by: Otilio Hughes MD on 06/27/2022 3:52 PM AKDT Station ID: [id number]
[2022-06-27] MEDS ORDERED: ALBUTEROL NEB 2.5 MG/3 ML INH STA (17:04)
[2022-06-27] MEDS ORDERED: IPRATROPIUM 0.2 MG/ML NEB INH STA (17:04)
[2022-06-27] MEDS ORDERED: ONDANSETRON ODT 4 MG TABLET TL PRN (17:12)
[2022-06-27] MEDS ORDERED: ACETAMINOPHEN 325 MG TABLET PO PRN (17:12)
[2022-06-27] MEDS ORDERED: oxyCODONE 5 MG TABLET PO PRN (17:12)
[2022-06-27] MEDS ORDERED: ONDANSETRON 4 MG/2 ML VIAL IVP PRN (17:12)
--- NOTE | 2022-06-27 18:23 | HISTORY & PHYSICAL EXAMINATION ---
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 She had an NSTEMI with a stent in 2017, another ID with stent in April 2019. She quit smoking in April 2019. She smoked cigarettes for 50 years. Echocardiogram in June 2019 showed her to have an ejection fraction of 60 to 65%. No evidence of pulmonary hypertension. And no regional wall motion abnormalities. In June 2020 echo showed her ejection fraction to start dropping at 50 to 55%. She has regional wall motion abnormalities in the anteroseptal, apical distal anterior wall segment with hypokinesis. She started developing moderately abnormal right heart pressures and with an RVSP at rest of 52 mmHg. She then had another echo in September 2020 where she now had a dilated left ventricle with moderate concentric left ventricular hypertrophy, overall systolic function was 50% due to severe hypokinesis of the entire apex and distal anterior wall. Right ventricle had normal size and function. No pulmonary pressures noted. When she comes to the hospital she usually presents as severe dyspnea. Her last hospitalization was in June 2021 where she came to the ER because "my heart was racing and I could not breathe". She is on home oxygen at 2 L/min. With the June 2021 admission she was felt to have flash pulmonary edema that required BiPAP and diuresis. In spite of being put in the ICU for this, she acutely worsened and initial troponin was 45 but went to 7983. She was started on a heparin, received Lopressor, Lipitor, 4 baby aspirin. The following day she was transferred to [facility] for angio.She was at [facility] from July 05 through July 16, 2021. She underwent a cardiac MRI showing an ejection fraction of 34% and an LAD infarct. She subsequently underwent a left heart cath with findings of subtotal mid RCA lesions that were not amenable to PCI. Echocardiogram shows severely dilated left ventricle with severe dysfunction. She was discharged on Lasix 20 mg twice daily. A low- sodium diet. Atorvastatin. Entresto , metoprolol succinate 25 mg (half a tablet) daily. Lisinopril was stopped. She was felt to have chronic hypoxic failure that was multifactorial in the setting of COPD, heart failure.And then she was discharged to [facility] for rehab. After rehab she was to go live with her brother. She told the ER provider today that she has been compliant with all the medications that she is supposed to take. There has been no new events. No new chest pain, palpitations. But starting 3 weeks ago she began developing exertional dyspnea. It was accompanied by a dry cough, nonproductive. No fevers, chills, sweats. No chest pain. In the last 2 days is gotten to the point that she can even walk 1 or 2 feet without being progressively short of breath. However, in reviewing her last office visit on June 24 with her PCP, she missed her previous appointment with them, she is noncompliant with her medical care. She did try to see Dr. Martin for her heart but he is semi-retired and she ended up with in [facility]. She just can't make that drive so she is now seeing BERHANE Layne in the [place] office. She lives alone, feels isolated even though she lives next to her brother, was terrified of getting COVID, and was thinking about moving into assisted living. But she has Medicaid and needed to make that process happen. She needs a spend down to apply. She said she was not good about taking her medications, and that most she has been able to do sponge bath to take a bath because she is so tired and short of breath. Her hair finally became so matted that she cut it off. She eats lots of junk. Her Medicaid transplant case manager is trying to help her. Still able to get to the toilet. But has fecal and urinary incontinence and has been wearing adult diapers for years. All the areas of her body that folded over on itself, breast, pannus, groin, all have Thi. Breathing was really difficult with any movement such as standing or transferring. Very depressed. She rents from her brother. Has her own little place on his property. She is intimating that his does not want her to live there anymore. Once she gets Medi-medi [place] Temperature was 36.7. Heart rate 69. Respirations 24. Blood pressure 137/51. She was 93% saturated and requiring 2 L nasal cannula which is her baseline. Weight is 115.6 kg. The ER provider and I discussed the case. The BNP was 857, patient was hypoxic and struggling to breathe. "She sounded like a freight train". In spite of diuresis with a urinary output of close to 450 cc, the patient was still short of breath. She also received Atrovent. Albuterol. Chest x-ray had cardiomegaly with interstitial prominence and probable pleural effusions. Possibly pneumonia of the left lower lobe. So to make sure she was not having a PE and to get a better look at her lungs Ashanti Peterson did a CT angiogram. The pulmonary arteries were enlarged, no pulmonary embolism. She had a left pleural effusion with a loculated appearance along the posterior superior pleural area extending into the major fissure. Left lower lobe atelectasis. Cardiomegaly without pericardial effusion. Right hilar adenopathy. We discussed the fact that this woman seems to have worsening pulmonary hypertension on echo and large pulmonary arteries on CT. Worsening dyspnea on exertion. Because of her previous cardiac history we thought about ischemia but her troponin was 12.4 and EKG was unchanged. We thought about pneumonia but there is no real clear pneumonia on CT angiogram or chest x-ray. As such I will be bringing the patient in to diurese her for what we think is cor pulmonale and worsening pulmonary hypertension. She is noncompliant with medications and lifestyle restrictions. On top of that she seems to have a new loculated pleural effusion. I made it very clear to Ashanti Peterson that we cannot take care of that here. So if her pleural effusion is at all impacting on distant exertion she will need to follow-up in the outpatient setting. History - Past Medical History Cardiovascular: reports: Congestive heart failure, Hypertension, High cholesterol, Coronary artery disease, ID Respiratory: reports: COPD (oxygen dependent), Shortness of breath, Other (Loculated pleural effusion) Neuro: reports: None Endocrine/Autoimmune: reports: Other (Vitamin D deficiency) GI: reports: None GRADING SUPERVISOR: reports: None : reports: None HEENT: reports: None Psych: reports: Depression (causing noncompliance w medical regimen), Anxiety Musculoskeletal: reports: Osteoarthritis, Other (Morbidly obese and sedentary due to body pain, chf, copd) Derm: reports: Other (Thi in all intertriginous folds) MRSA Hx?: No - Past Surgical History General: reports: Cholecystectomy, Appendectomy Cardiovascular: reports: Coronary stent (twice ) HEENT: reports: Tonsil/Adenoidectomy - Family & Social History Family History: Mother: , Alzheimer's Disease, Father: , CAD Family History Comment/Other: Father from myocardial infarction in his early 50s. Mom of Alzheimer's complications. 3 of her brothers also have heart disease and have required CABGs. 2 brothers have of heart disease. She still has 5 brothers and 1 sister living. She has 2 daughters. Oldest 1 has problems with alcohol and personality disorder. Living arrangement: At home (rental property on her brother's property) Living Situation: Alone (Brother lives next door.) Social History Notes: She quit smoking with the ID, in April 2019. She had been smoking for about 50 years prior to that, varying between half a pack to a pack a day. She reports no alcohol use. She lives alone and has been retired for 2-3 years. 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 She lives next door to her brother. She has 2 grown daughters who live in [place] and [place]. - Substance History Use: Uses substance without health or social issues: NONE Abuse: Recurrent use of substance despite neg consequences: NONE Dependence: Experiences withdrawal or developed tolerances: NONE - POLST Patient has POLST: No POLST Status: WantsDNI/but CPR&defib OK Meds/Allgy - Home Medications Home Medications: Ambulatory Orders Medication Instructions Recorded Confirmed Aspirin [Aspirin EC] 81 mg PO DAILY 06/22/19 07/04/21 Atorvastatin Calcium 40 mg PO QPM 06/22/19 07/04/21 Clopidogrel Bisulfate [Clopidogrel] 75 mg PO DAILY 06/22/19 07/04/21 Nitroglycerin 0.4 mg SL Q5M PRN 06/22/19 07/04/21 lisinopriL [Lisinopril] 10 mg PO DAILY 12/01/19 07/04/21 Sertraline [Zoloft] 50 mg PO DAILY 06/11/20 07/04/21 Spironolactone [Aldactone] 25 mg PO DAILY 06/11/20 07/04/21 Nystatin Cream [Mycostatin Cream] 1 gm TOP BID #45 gr 06/12/20 07/04/21 Albuterol 2.5 mg INH Q4H PRN #30 neb 11/12/20 07/04/21 Formoterol Fumarate 20 mcg IH BID #30 neb 11/13/20 07/04/21 Furosemide [Lasix] 20 mg PO 0800,1200,1500 02/02/21 07/04/21 Amox/Clav 875/125 [Augmentin] 1 tab PO Q12H #20 tablet 07/01/21 07/04/21 Doxycycline Monohydrate 100 mg PO BID #20 cap 07/01/21 07/04/21 predniSONE [Deltasone] 10 mg PO [id number] #42 tab 07/01/21 07/04/21 Metoprolol Succinate [Toprol Xl] 50 mg PO DAILY 07/04/21 07/04/21 - Allergies Allergies/Adverse Reactions: Allergies Allergy/AdvReac Type Severity Reaction Status Date / Time Sulfa (Sulfonamide Allergy Hives Verified 07/01/21 15:06 Antibiotics) Review of Systems - Constitutional Constitutional: reports: Fatigue, Weakness, Poor appetite, Weight gain - Eyes Eyes: denies: Pain, Vision loss, Dipolpia - Ears, Nose & Throat Ears, Nose & Throat: reports: Hearing loss. denies: Ear pain, Nasal obstruction, Nasal congestion, Postnasal drainage - Cardiovascular Cariovascular: reports: Irregular heart rate, Palpitations, Edema, Exertional d yspnea, Decr. exercise tolerance, Orthopnea. denies: Chest pain - Respiratory Respiratory: reports: Cough, SOB at rest, SOB with exertion, Apnea - Gastrointestinal Gastrointestinal: denies: Abdominal pain, Abdominal distention, Constipation, Diarrhea, Black stools, Bloody stools, Nausea, Vomiting - Genitourinary Genitourinary: reports: Incontinence. denies: Dysuria, Frequency - Musculoskeletal Musculoskeletal: reports: Muscle aches, Stiffness, Joint pain. denies: Back pain - Integumentary Integumentary: reports: Rash (yeast). denies: Pruritis, Lesions, Pigment changes, Nail changes - Neurological Neurological: reports: General weakness. denies: Focal weakness, Headache, Dizziness - Psychiatric Psychiatric: reports: Depression, Anxiety. denies: Suicidal - Endocrine Endocrine: denies: Polyuria, Polydypsia - Hematologic/Lymphatic Hematologic/Lymphatic: denies: Anemia, Bruising, Petechiae, Blood clots, Lymphadenopathy Prior Level of Functionality: She is falling apart. She cannot take a bath anymore, cannot get dressed very easily anymore, cannot leave the house to get her medications was noncompliant, cannot leave the house to get groceries so she is not eating well. She can still feed herself. But needs a lot of help in all areas of her life. Uses a walker. Uses nasal cannula oxygen. Exam - Vital Signs Reviewed Vital Signs: Yes Vital Signs: Vital Signs x48h Temp Pulse Resp BP Pulse Ox O2 Flow Rate 06/27/22 17:25 90 22 2 06/27/22 16:59 36.3 C L 06/27/22 16:52 79 18 150/85 H 97 2 06/27/22 16:00 73 25 H 140/84 H 97 2 06/27/22 15:00 68 19 167/64 H 95 06/27/22 14:33 36.7 C 69 24 137/51 H 93 - Physical Exam General Appearance: positive: Alert, Mild distress (Short of breath with talking to me. She says she is very short of breath just sitting up and trying to transition to sitting), Other (5'5" female at 116 kg. Super obese. Wearing glasses) Eyes Bilateral: positive: PERRL, EOMI ENT: positive: No signs of dehydration Neck: positive: Thyroid nml, Other (Neck is too thick, cannot assess for JVD). negative: Stiff neck Respiratory: positive: Other (Very diminished at bases, tachypneic with exertion of sitting up, but okay to talk. Faint distal crackles at the bases. ER provider described her as breathing like a freight train. She is much better right now) Cardiovascular: positive: Regular rate & rhythm Peripheral Pulses: positive: 1+ Abdomen: positive: Non-tender, Nml bowel sounds, No distention, Other (Hugely obese pannus. She has Thi of all her flexural folds underneath her breast, axilla, pannus, intertriginous areas. Belly too overweight for me to assess for organomegaly). negative: Tenderness Skin: positive: Warm, Dry, Pallor Extremities: positive: Full ROM, Pedal edema Neurologic/Psychiatric: positive: Oriented x3, CN's nml (2-12), Motor nml Conclusion/Plan - Problem List (1) Acute and chronic respiratory failure with hypoxia Conclusion/Plan: Multifactorial in sources. She has COPD, she has acute CHF, probably has restrictive lung disease, probably has undiagnosed obstructive sleep apnea. I do not even know if anybody is evaluated her for obesity hypoventilation syndrome. Plan: Inpatient status Treat each individual cause (2) Acute cor pulmonale without pulmonary embolism Conclusion/Plan: Echoes and CT angiogram show worsening pulmonary hypertension. While she does have reduced ejection fractions as well, I will focus on diuresis. I will resume her usual medications for left-sided heart failure as well. (3) Acute on chronic systolic heart failure Conclusion/Plan: Echocardiograms over the years have shown her to have a slowly reducing ejection fraction. Most recent ejection fraction was now 34% in June 2021 with her cardiac MRI. She is supposed to be on Entresto but our formulary does not carry that. As such my treatment for her CHF will include: IV Lasix 40 mg IV push twice daily Spironolactone 25 mg p.o. daily Losartan 50 mg p.o. daily Metoprolol succinate 25 mg tablet, 1/2 tablet a day Daily weights Daily intake and output (4) Loculated pleural effusion Conclusion/Plan: Her CT pulmonary angiogram done in 2021 did not have pleural effusion mostly to loculated pleural effusion. She will need outpatient work-up for that. Our facility does not have interventional radiology to take care of this nor do our general surgeons take care of this. (5) COPD with exacerbation Conclusion/Plan: At home she does an occasional DuoNeb. I would like to start her on Solu-Medrol 40 mg IV push 3 times daily and will give her 5 doses. We will then also start budesonide via inhalation 0.5 twice daily, formoterol via inhalation twice daily, and as needed DuoNeb. She will also be continued on her nasal cannula oxygen to maintain O2 sat no greater than 92% (6) CAD S/P percutaneous coronary angioplasty Conclusion/Plan: When she was admitted in June 2021, her initial troponin was unremarkable. Second set of troponins bumped to 7000. Here her troponin was 12. I will be rechecking another troponin just to make sure. I will resume her aspirin, lovastatin, beta-vinita, and Plavix. (7) Thi infection of flexural skin Conclusion/Plan: I will be asking nursing to please bathe her. Take her into the shower and wash her down. Dry her carefully and start using nystatin powder and cream on a daily basis. (8) Noncompliance Conclusion/Plan: Multifactorial sources. Depression with anxiety is the leading 1. Overwhelmed with her own self-care needs. Lack of access to food, transportation. Social work will meet with the patient tomorrow and we can start the process of organizing her to do list - Lab Results Lab results reviewed: Yes Fish Bones: 06/27/22 15:14 06/27/22 15:14 - Diagnostic Imaging Results Diagnostic Imaging Results: positive: Final report reviewed (see HPI) Core Measures - Anticipated LOS I expect patient to be DC'd or transferred within 96 hours.: Yes - DVT/VTE - Prophylaxis VTE/DVT Prophylaxis med ordered at admit?: Yes
[2022-06-27] MEDS: BUDESONIDE 0.5 MG/2 ML NEB INH SCH (21:25)
[2022-06-27] MEDS: FORMOTEROL FUMARATE NEB 20 MCG/2 ML INH SCH (21:25)
[2022-06-27] MEDS: IPRATROPIUM/ALBUTEROL 3 ML NEB INH PRN (21:25)
[2022-06-27] MEDS: methylPREDNISolone SUCCINATE 40 MG/ML VIAL IVP SCH (21:58)
[2022-06-27] MEDS: LOSARTAN 50 MG TABLET PO SCH (21:58)
[2022-06-27] MEDS: NYSTATIN POWDER 15 GM TOP SCH (21:59)
[2022-06-27] MEDS: FUROSEMIDE 40 MG/4 ML VIAL IVP SCH (21:59)
[2022-06-27] MEDS: NYSTATIN CREAM 15 GM TUBE TOP SCH (22:00)
[2022-06-28] MEDS: SODIUM CHLORIDE FLUSH 0.9% 10 ML SYRINGE IVP SCH ×3 (02:00→17:40)
[2022-06-28 06:29] LABS: CALCIUM 8.7 mg/dL (8.5-10.3); CREATININE 0.9 mg/dL (0.4-1.0); POTASSIUM 4.1 mmol/L (3.5-5.0)
[2022-06-28] MEDS: IPRATROPIUM/ALBUTEROL 3 ML NEB INH PRN ×2 (06:43→21:16)
[2022-06-28] MEDS: BUDESONIDE 0.5 MG/2 ML NEB INH SCH ×2 (06:43→21:16)
[2022-06-28] MEDS: SODIUM CHLORIDE FLUSH 0.9% 10 ML SYRINGE IVP PRN ×2 (07:05→22:01)
[2022-06-28] MEDS: FUROSEMIDE 40 MG/4 ML VIAL IVP SCH ×2 (07:05→17:40)
[2022-06-28] MEDS: methylPREDNISolone SUCCINATE 40 MG/ML VIAL IVP SCH ×3 (07:05→22:00)
[2022-06-28] MEDS: ASPIRIN EC 81 MG TABLET PO SCH (08:01)
[2022-06-28] MEDS: SPIRONOLACTONE 25 MG TABLET PO SCH (08:02)
[2022-06-28] MEDS: CHOLECALCIFEROL 400 UNIT TABLET PO SCH (08:03)
[2022-06-28] MEDS: METOPROLOL SUCCINATE 25 MG TABLET PO SCH (08:03)
[2022-06-28] MEDS: SERTRALINE 50 MG TABLET PO SCH (08:03)
[2022-06-28] MEDS: ENOXAPARIN 40 MG/0.4 ML SYRINGE SUBQ SCH (08:03)
[2022-06-28] MEDS: CLOPIDOGREL 75 MG TABLET PO SCH (08:03)
[2022-06-28] MEDS: NYSTATIN POWDER 15 GM TOP SCH ×2 (08:09→22:00)
[2022-06-28] MEDS: LOSARTAN 50 MG TABLET PO SCH (09:00)
--- NOTE | 2022-06-28 12:30 | PHARMACY PROGRESS NOTE ---
- Best Possible Medication History Admit Date and Time: 06/27/22 1712 Processed by: Pharmacy Medication History completed: Yes Patient Interview: Completed Secondary Source(s): Pharmacy records, Insurance records (pt is very non compliant) As the person ultimately responsible for medication therapy, providers are able to order a medication from an existing home medication list in [facility] via the "Reconcile Routine" prior to Confirmation of that medication by support team member. Such practice is discouraged except when the physician, in their clinical judgment, deems that a medical need exists for a medication without regard to previous use.
[2022-06-28 12:32] LABS: ESTIMATED AVERAGE GLUCOSE 143 mg/dL (70-100); HEMOGLOBIN A1c% 6.6 % (4.27-6.07)
--- NOTE | 2022-06-28 14:04 | PROVIDER PROGRESS NOTE ---
Progress Note June 28, 2022 1:48 PM She feels better. Not as short of breath. But she still finds it difficult to just try to get from supine to sitting without losing her air. At rest, and eating, and speaking she is improved. She denies cough, fever, congestion. In speaking to pharmacy this patient has been noncompliant with her medications starting from last summer. She has not picked up entire 90-day prescriptions. Active Medications Acetaminophen (Acetaminophen 325 Mg Tablet) 650 mg PO Q4HR PRN PRN Reason: Pain 1 to 4, or Fever Albuterol/Ipratropium (Ipratropium/Albuterol 3 Ml Neb) 3 ml INH Q4HR PRN PRN Reason: Wheezing Last Admin: 06/28/22 06:43 Dose: 3 ml Aspirin (Aspirin Ec 81 Mg Tablet) 81 mg PO DAILY [facility] Budesonide (Budesonide 0.5 Mg/2 Ml Neb) 0.5 mg INH RTBID [facility] Last Admin: 06/28/22 06:43 Dose: 0.5 mg Cholecalciferol (Cholecalciferol 400 Unit Tablet) 800 unit PO DAILY [facility] Last Admin: 06/28/22 08:03 Dose: 800 unit Clopidogrel Bisulfate (Clopidogrel 75 Mg Tablet) 75 mg PO DAILY [facility] Last Admin: 06/28/22 08:03 Dose: 75 mg Enoxaparin Sodium (Enoxaparin 40 Mg/0.4 Ml Syringe) 40 mg SUBQ DAILY [facility] Last Admin: 06/28/22 08:03 Dose: 40 mg Formoterol Fumarate (Formoterol Fumarate Neb 20 Mcg/2 Ml) 20 mcg INH RTBID [facility] Last Admin: 06/27/22 21:25 Dose: 20 mcg Furosemide (Furosemide 40 Mg/4 Ml Vial) 40 mg IVP BIDDIURETIC [facility] Last Admin: 06/28/22 07:05 Dose: 40 mg Losartan Potassium (Losartan 50 Mg Tablet) 50 mg PO DAILY [facility] Last Admin: 06/27/22 21:58 Dose: 50 mg Methylprednisolone (Methylprednisolone Succinate 40 Mg/Ml Vial) 40 mg IVP TID [facility] Last Admin: 06/28/22 07:05 Dose: 40 mg Metoprolol Succinate (Metoprolol Succinate 25 Mg Tablet) 12.5 mg PO DAILY [facility] Last Admin: 06/28/22 08:03 Dose: 12.5 mg Nystatin (Nystatin Cream 15 Gm Tube) 1 applic TOP BID [facility] Last Admin: 06/27/22 22:00 Dose: Not Given Nystatin (Nystatin Powder 15 Gm) 1 applic TOP BID [facility] Last Admin: 06/28/22 08:09 Dose: 1 applic Ondansetron HCl (Ondansetron Odt 4 Mg Tablet) 4 mg TL Q6HR PRN PRN Reason: Nausea / Vomiting Ondansetron HCl (Ondansetron 4 Mg/2 Ml Vial) 4 mg IVP Q6HR PRN PRN Reason: Nausea / Vomiting Oxycodone HCl (Oxycodone 5 Mg Tablet) 5 mg PO Q4HR PRN PRN Reason: Pain 5 to 7 Sertraline HCl (Sertraline 50 Mg Tablet) 50 mg PO DAILY [facility] Last Admin: 06/28/22 08:03 Dose: 50 mg Sodium Chloride (Sodium Chloride Flush 0.9% 10 Ml Syringe) 10 ml IVP PRN PRN PRN Reason: NEEDED PER PROVIDER ORDERS Last Admin: 06/28/22 07:05 Dose: 20 ml Sodium Chloride (Sodium Chloride Flush 0.9% 10 Ml Syringe) 10 ml IVP 0100,0900,1700 [facility] Last Admin: 06/28/22 08:03 Dose: 10 ml Spironolactone (Spironolactone 25 Mg Tablet) 25 mg PO DAILY [facility] Last Admin: 06/28/22 08:02 Dose: 25 mg Home Meds: many have not been picked up for months Aspirin [Aspirin EC] 81 mg PO DAILY 06/22/19 Atorvastatin Calcium 40 mg PO QPM 06/22/19 Clopidogrel Bisulfate [Clopidogrel] 75 mg PO DAILY 06/22/19 Nitroglycerin 0.4 mg SL Q5M PRN 06/22/19 Sertraline [Zoloft] 50 mg PO DAILY 06/11/20 Spironolactone [Aldactone] 25 mg PO DAILY 06/11/20 Furosemide [Lasix] 20 mg PO BID 02/02/21 Metoprolol Succinate [Toprol Xl] 50 mg PO DAILY 07/04/21 Albuterol Sulf [Ventolin Hfa Inhaler] 2 puffs PO QID PRN 06/28/22 Losartan [Cozaar] 1 tab PO BID 06/28/22 Exam: A cheerful, alert, oriented elderly female. Appears in no acute distress laying down. But when I have her sit up and try and transition from supine to sitting she gets tachypneic with labored breathing. She is 5 foot 5 inches tall, 115.6 kg Temperature is 36.8, heart rate 63, blood pressure 158/57 Diminished breath sounds at the bases, faint crackles. But no rhonchi, or wheezing. Regular rate and rhythm with distant cardiac tones. I do not hear an S3. Abdomen is hugely obese, soft, nontender. Hypoactive bowel sounds. Skin shows Thi intertrigo in the axilla, underneath her breast, underneath her pannus, in her groin. It is better than it was yesterday since nursing has cleaned her up, and started using nystatin powder and cream Extremities have 1+ edema of her feet and calves and ankles Neurologically she is alert, oriented, normal speech patterns, and can follow all commands. She can move all of her extremities. She can feed herself. But she needs 2 person assist to reposition herself in the bed. Much less that up. Lab: Sodium 137, potassium 4.1. BUN 15, creatinine 0.9. BNP went to 1005 from 857 yesterday A1c is 6.6% Assessment/plan 1. Acute on chronic respiratory failure with hypoxia This patient is on baseline home oxygen of 2 L/min nasal cannula. Combination of COPD and CHF. Since being here she is on the same 2 L. She has not required increased use. Her main manifestation is severe tachypnea with minimal exertion. I am starting to suspect that this woman is severely deconditioned due to a sedentary lifestyle. Plan: Continue to treat the CHF and the COPD Eval[facility] and I have ordered PT and OT 2. Acute cor pulmonale without pulmonary embolism In reviewing her echoes over the last 2 years, and the CT angiogram from yesterday, she is developing pulmonary artery dilation as well as elevated RVSP pressures. I suspect that cor pulmonale may be most of her dyspnea as opposed to true left-sided heart failure. Plan: Focusing on diuresis. Yesterday she had 500 cc out before midnight. Since midnight last night she has had 3036 urine output. In spite of that her BNP has come up. I think I will just focus on the amount of diuresis is a measurement of success. 3. Acute on chronic systolic heart failure. Ejection fraction over the years has gradually come down. She started at 65% than 55% then 50% on her echoes. She had a cardiac MRI in June 2021 with her NSTEMI and that calculated her ejection fraction at 34%. In speaking to pharmacy, who is reconciling her medications, this patient has not been co mpliant way more than she is admitting. She has not picked up some of her losartan for 6 months now. Spironolactone for 2 or 3 months. Plan: She is currently on Lasix 40 mg IV push twice a day, spironolactone 25 mg a day, losartan 50 mg a day, and metoprolol succinate 25 mg tablet, 1/2 tablet daily. I plan on continuing these medications until she is stable for discharge. But I will also have to sit down whether and have a long conversation about advance care planning, goals for the future, and how important it is for her to maintain her medications if she wants to remain out of the hospital and live a longer life. Repeat Echo. 4. Loculated pleural effusion. Our interventional radiologist is not able to take care of this. And we do not have a surgeon that does VATS. This will have to be handled in the outpatient setting. 5. COPD with exacerbation. Currently on Solu-Medrol 40 mg IV push 3 times daily. Will decrease to twice daily since she is not wheezing. She is on budesonide via inhalation 0.5 mg twice a day, formoterol via inhalation twice a day, and DuoNeb. At home she only usually takes Ventolin HFA. Plan: At discharge I will most likely change her to Combivent and budesonide if she can afford it. 6. Coronary artery disease, status post percutaneous coronary angioplasty. She is gone to [facility] and had 2 stents the first time, and 1 stent the last time. With her most recent cardiac evaluation in June 2021 no stents. But she needs to have her risk factors modified. Again were back to discussing compliance. She needs to make sure she takes her aspirin, lovastatin, beta-vinita and Plavix. So far her troponins have been negative. 7. Thi infection of flexural areas. Bath today in the shower. Followed by nystatin powder and cream. Pharmacy notes that she is supposed to be on fluconazole. That was prescribed by her primary care provider but she never picked up the prescription from June 24. At this time I will not resume the fluconazole and just focus on skin care here. 8. Noncompliance. Most likely due to lack of energy, depression and being overwhelmed with self-care needs. Social work will be working on helping her with her Medicaid employment case manager for getting Medicaid. Slowly working through the process for months down the road she may be able to find a [facility] bed. We have warned her [place] she may have to go to the [facility]. All of this will happen months down the road. Right now our short-term goal is to stabilize her acute medical problems, return her to her own housing where she lives near her brother, and continue to work on placement down the road. 9. Elevated white cell count. No signs or symptoms of infection. Repeat CBC tomorrow. 10. Depressive disorder She was complaining that her primary care provider refilled her Zoloft incorrectly. She is supposed to be on 100 mg. According to the pharmacy reconciliation she has not had Zoloft 100 mg for close to a year. So when her primary care provider refilled it at 50 mg not 100 mg that was probably appropriate. If she has not been on sertraline for that long, she should probably start out at 25 mg a day for a week then 50 mg a day for a week then 75 mg a day for a week then 100 mg. I will explain that to the patient.
[2022-06-28] MEDS: FORMOTEROL FUMARATE NEB 20 MCG/2 ML INH SCH ×2 (14:55→21:16)
[2022-06-28] MEDS: NYSTATIN CREAM 15 GM TUBE TOP SCH ×2 (14:59→22:00)
[2022-06-29] MEDS: SODIUM CHLORIDE FLUSH 0.9% 10 ML SYRINGE IVP SCH ×3 (01:10→16:40)
[2022-06-29 06:11] LABS: BASOPHILS % (AUTO) 0.1 %; HCT - HEMATOCRIT 43.6 % (37.0-47.0); HGB - HEMOGLOBIN 13.4 g/dL (12.0-16.0); LYMPHOCYTES % (AUTO) 5.6 %; MEAN CORPUSCULAR HEMOGLOBIN 26.2 pg (27.0-31.0); MEAN CORPUSCULAR HGB CONC 30.7 g/dL (32.0-36.0); MEAN CORPUSCULAR VOLUME 85.2 fL (81.0-99.0); MEAN PLATELET VOLUME 10.2 fL (7.9-10.8); MONOCYTES # (AUTO) 0.3 10^3/uL (0.0-1.0); MONOCYTES % (AUTO) 1.5 %; NEUTROPHILS # (AUTO) 16.5 10^3/uL (1.5-6.6); NEUTROPHILS % (AUTO) 92.1 %; PLT - PLATELET COUNT 418 10^3/uL (130-450); RED BLOOD COUNT 5.12 10^6/uL (4.20-5.40); RED CELL DISTRIBUTION WIDTH 13.8 % (12.0-15.0); WHITE BLOOD COUNT 17.9 x10^3/uL (4.8-10.8)
[2022-06-29 06:15] LABS: CALCIUM 8.9 mg/dL (8.5-10.3); CREATININE 0.9 mg/dL (0.4-1.0); POTASSIUM 4.2 mmol/L (3.5-5.0)
[2022-06-29] MEDS: FUROSEMIDE 40 MG/4 ML VIAL IVP SCH ×2 (06:35→14:50)
[2022-06-29] MEDS: methylPREDNISolone SUCCINATE 40 MG/ML VIAL IVP SCH ×2 (06:35→22:03)
[2022-06-29] MEDS: SODIUM CHLORIDE FLUSH 0.9% 10 ML SYRINGE IVP PRN (06:36)
[2022-06-29] MEDS: FORMOTEROL FUMARATE NEB 20 MCG/2 ML INH SCH ×2 (07:31→21:06)
[2022-06-29] MEDS: BUDESONIDE 0.5 MG/2 ML NEB INH SCH ×2 (07:31→21:07)
[2022-06-29] MEDS: INSULIN LISPRO 300 UNIT/3 ML PEN SUBQ SCH ×4 (08:10→22:06)
[2022-06-29] MEDS: ENOXAPARIN 40 MG/0.4 ML SYRINGE SUBQ SCH (08:11)
[2022-06-29] MEDS: CLOPIDOGREL 75 MG TABLET PO SCH (08:13)
[2022-06-29] MEDS: METOPROLOL SUCCINATE 25 MG TABLET PO SCH (08:13)
[2022-06-29] MEDS: SERTRALINE 50 MG TABLET PO SCH (08:13)
[2022-06-29] MEDS: SPIRONOLACTONE 25 MG TABLET PO SCH (08:13)
[2022-06-29] MEDS: LOSARTAN 50 MG TABLET PO SCH (08:14)
[2022-06-29] MEDS: ASPIRIN EC 81 MG TABLET PO SCH (08:14)
[2022-06-29] MEDS: CHOLECALCIFEROL 400 UNIT TABLET PO SCH ×2 (08:14→08:16)
[2022-06-29] MEDS: NYSTATIN CREAM 15 GM TUBE TOP SCH ×2 (08:14→22:07)
[2022-06-29] MEDS: NYSTATIN POWDER 15 GM TOP SCH ×2 (08:14→22:07)
[2022-06-29] MEDS: metFORMIN 500 MG TABLET PO SCH ×2 (11:51→16:38)
--- NOTE | 2022-06-29 18:51 | PROVIDER PROGRESS NOTE ---
Assessment/Plan - Problem List (1) Acute and chronic respiratory failure with hypoxia Assessment/Plan: This patient is on baseline home oxygen of 2 L/min nasal cannula. She has a combination of COPD and CHF. Since being here she is on the same 2 L. She has not required increased use. Her main manifestation of decompensation was severe tachypnea with minimal exertion. We are suspect that this woman is severely deconditioned due to a sedentary lifestyle. Plan: Continue to treat the CHF and the COPD Evaluate for short-term rehab at a senior care facility and cont working with PT and OT 2. Acute cor pulmonale without pulmonary embolism In reviewing her echoes over the last 2 years, and the CT angiogram done here, she is developing pulmonary artery dilation as well as elevated RVSP pressures. We suspect that cor pulmonale may be most of her dyspnea as opposed to true left-sided heart failure. Plan: Cont diuresis, following amount of diuresis as a measurement of success. 3. Acute on chronic systolic heart failure. Ejection fraction over the years has gradually come down. She started at 65% than 55% then 50% on her Echoes. She had a cardiac MRI in June 2021 with her NSTEMI and that calculated her ejection fraction at 34%. Pharmacy learned that this patient has not been compliant with her meds. She has not picked up some of her losartan for 6 months now, or her Spironolactone for 2 or 3 months. Just had an Echo done several days ago. Plan: She is currently on Lasix 40 mg IV push twice a day, spironolactone 25 mg a day, losartan 50 mg a day, and metoprolol succinate 25 mg tablet, 1/2 tablet daily. These will cont at discharge. But she needs to be compliant with taking her medications. Echo does not need to be repeated 4. Loculated pleural effusion. Our interventional radiologist is not able to take care of this. And we do not have a surgeon that does VATS. This will have to be handled in the outpatient setting. 5. COPD with exacerbation. Currently on Solu-Medrol 40 mg IV, being decreased since she is not wheezing. She is on budesonide via inhalation 0.5 mg twice a day, formoterol via inhalation twice a day, and DuoNeb. At home she only usually takes Ventolin HFA. Plan: At discharge we will most likely change her to Combivent and budesonide if she can afford it. 6. Coronary artery disease, status post percutaneous coronary angioplasty. She is gone to the [facility] twice and had 2 stents the first time, and 1 stent the last time. With her most recent cardiac evaluation in June 2021 no stents. But she needs to have her risk factors modified. Again were back to discussing compliance. She needs to make sure she takes her aspirin, lovastatin, beta- vinita and Plavix. So far her troponins have been negative. 7. Thi infection of flexural areas. She had a shower. Followed by nystatin powder and cream. Pharmacy notes that she is supposed to be on fluconazole. That was prescribed by her primary care provider but she never picked up the prescription from June 24. At this time I will not resume the fluconazole and just focus on skin care here. 8. Noncompliance. Most likely due to lack of energy, depression and being overwhelmed with self- care needs. Social work will be working on helping her with her Medicaid outpatient case manager for getting Medicaid. Slowly working through the process for months down the road she may be able to find a [facility] bed. We have warned her that [place] and she may have to go to the [facility]. All of this will happen months down the road. Right now our short-term goal is to stabilize her acute medical problems, return her to her own housing where she lives near her brother, and continue to work on placement down the road. 9. Elevated white cell count. No signs or symptoms of infection. Will follow intermittently 10. Depressive disorder She was complaining that her primary care provider refilled her Zoloft inc orrectly. She is supposed to be on 100 mg. According to the pharmacy reconciliation she has not had Zoloft 100 mg for close to a year. So when her primary care provider refilled it at 50 mg not 100 mg that was probably appropriate. Plan: Cont 50 mg here 11. Type 2 diabetes mellitus, without complications, not on long-term use of insulin She is on steroids so her sugars are up with that. However, even before the steroids, her A1c shows that her glucose has been elevated for at least the last 90 days. Plan: Continue diabetic diet, before meals and at bedtime fingerstick checks and SS insulin Consult from dietary re: diet discretion and lifestyle modification. - Current Meds Current Meds: Current Medications Generic Name Dose Route Start Last Admin Trade Name Freq PRN Reason Stop Dose Admin Albuterol/Ipratropium 3 ml 06/27/22 18:55 06/28/22 21:16 Ipratropium/Albuterol 3 Ml Neb INH 3 ml Q4HR PRN Administration Wheezing Aspirin 81 mg 06/28/22 09:00 06/29/22 08:14 Aspirin Ec 81 Mg Tablet PO 81 mg DAILY [facility] Administration Budesonide 0.5 mg 06/27/22 19:00 06/29/22 07:31 Budesonide 0.5 Mg/2 Ml Neb INH 0.5 mg RTBID [facility] Administration Cholecalciferol 800 unit 06/28/22 09:00 06/29/22 08:16 Cholecalciferol 400 Unit Tablet PO 800 unit DAILY [facility] Administration Clopidogrel Bisulfate 75 mg 06/28/22 09:00 06/29/22 08:13 Clopidogrel 75 Mg Tablet PO 75 mg DAILY [facility] Administration Enoxaparin Sodium 40 mg 06/28/22 09:00 06/29/22 08:11 Enoxaparin 40 Mg/0.4 Ml Syringe SUBQ 40 mg DAILY [facility] Administration Furosemide 40 mg 06/27/22 19:00 06/29/22 14:50 Furosemide 40 Mg/4 Ml Vial IVP 40 mg BIDDIURETIC [facility] Administration Insulin Human Lispro 1 - 5 unit 06/29/22 08:00 06/29/22 16:40 Insulin Lispro 300 Unit/3 Ml Pen SUBQ Not Given 0800,1200,1700,2100 [facility] Protocol Losartan Potassium 50 mg 06/27/22 18:52 06/29/22 08:14 Losartan 50 Mg Tablet PO 50 mg DAILY [facility] Administration Metformin HCl 500 mg 06/29/22 12:00 06/29/22 16:38 Metformin 500 Mg Tablet PO 500 mg BIDWM [facility] Administration Metoprolol Succinate 12.5 mg 06/28/22 09:00 06/29/22 08:13 Metoprolol Succinate 25 Mg Tablet PO 12.5 mg DAILY [facility] Administration Nystatin 1 applic 06/27/22 21:00 06/29/22 08:14 Nystatin Cream 15 Gm Tube TOP 1 applic BID [facility] Administration Nystatin 1 applic 06/27/22 21:00 06/29/22 08:14 Nystatin Powder 15 Gm TOP 1 applic BID [facility] Administration Sertraline HCl 50 mg 06/28/22 09:00 06/29/22 08:13 Sertraline 50 Mg Tablet PO 50 mg DAILY [facility] Administration Sodium Chloride 10 ml 06/27/22 17:12 06/29/22 06:36 Sodium Chloride Flush 0.9% 10 Ml Syringe IVP 10 ml PRN PRN Administration NEEDED PER PROVIDER ORDERS Sodium Chloride 10 ml 06/28/22 01:00 06/29/22 16:40 Sodium Chloride Flush 0.9% 10 Ml Syringe IVP 10 ml 0100,0900,1700 [facility] Administration Spironolactone 25 mg 06/28/22 09:00 06/29/22 08:13 Spironolactone 25 Mg Tablet PO 25 mg DAILY [facility] Administration - Lab Result Fish Bone Diagrams: 06/30/22 05:14 06/30/22 05:14 - Additional Planning My Orders: My Active Orders 06/29/22 09:08 Echo Transthoracic Complete [ECHO] Routine 06/29/22 09:12 Dietary [Nutrition Consult] [CONS] Routine 06/29/22 12:00 metFORMIN [Glucophage] 500 mg PO BIDWM 06/29/22 Dinner Carb-controlled Diet [DIET] 06/29/22 21:00 Miconazole Vaginal Cream [Monistat-7] 1 applic VG QPM methylPREDNISolone SUCCINATE [SOLU-Medrol (40MG VIAL)] 40 mg IVP BID 06/30/22 09:00 Lactobacillus Rhamnosus GG [Culturelle] 1 cap PO DAILY Subjective - Subjective Patient Reports: Feeling Better, Resting Comfortably (on O2 per n.c.) Objective Vital Signs: Vital Signs - 24 hr 06/28/22 06/28/22 06/28/22 21:18 21:32 21:33 Temperature 36.4 C L Heart Rate 66 66 Heart Rate [ Brachial] Respiratory 20 20 Rate Blood Pressure [Left Brachial artery] O2 Saturation 93 If not protocol 2 2 2 : Oxygen Flow, liters/minute 06/28/22 06/29/22 06/29/22 23:56 06:49 07:25 Temperature 36.4 C L 36.4 C L Heart Rate Heart Rate [ 63 63 62 Brachial] Respiratory 18 18 Rate Blood Pressure 100/60 132/63 H 138/56 H [Left Brachial artery] O2 Saturation 95 93 If not protocol 2 2 : Oxygen Flow, liters/minute 06/29/22 06/29/22 07:32 15:57 Temperature 36.4 C L Heart Rate 62 Heart Rate [ 60 Brachial] Respiratory 16 18 Rate Blood Pressure 118/54 L [Left Brachial artery] O2 Saturation 92 If not protocol 2 2 : Oxygen Flow, liters/minute Oxygen O2 Source [Without Activity] Room air O2 Source [With Activity] Nasal cannula O2 Source Nasal cannula Oxygen Flow Rate 2 I&O (Last 24 Hrs): Intake and Output Totals x24h 06/27/22 06/28/22 06/29/22 23:59 23:59 23:59 Intake Total 400 2250 2980 Output Total 500 3536 1200 Balance -100 -1286 1780 General: Alert, Oriented x3 HEENT: Mucous membr. moist/pink, Other (On O2 per n.c.) Neck: Supple Neuro: Alert, Non Focal Cardiovascular: Regular rate Respiratory: No respiratory distress, Rales (fine rales both bases) Abdomen: Soft, Other (Obese with pannus) Extremities: No clubbing, Other (Trace pedal edema) - Results Results: Laboratory Results WBC 17.9 x10^3/uL (4.8-10.8) H 06/29/22 05:56 RBC 5.12 10^6/uL (4.20-5.40) 06/29/22 05:56 Hgb 13.4 g/dL (12.0-16.0) 06/29/22 05:56 Hct 43.6 % (37.0-47.0) 06/29/22 05:56 MCV 85.2 fL (81.0-99.0) 06/29/22 05:56 MCH 26.2 pg (27.0-31.0) L 06/29/22 05:56 MCHC 30.7 g/dL (32.0-36.0) L 06/29/22 05:56 RDW 13.8 % (12.0-15.0) 06/29/22 05:56 Plt Count 418 10^3/uL (130-450) 06/29/22 05:56 MPV 10.2 fL (7.9-10.8) 06/29/22 05:56 Neut # (Auto) 16.5 10^3/uL (1.5-6.6) H 06/29/22 05:56 Lymph # (Auto) 1.0 10^3/uL (1.5-3.5) L 06/29/22 05:56 [place] # (Auto) 0.3 10^3/uL (0.0-1.0) 06/29/22 05:56 Eos # (Auto) 0.0 10^3/uL (0.0-0.7) 06/29/22 05:56 Baso # (Auto) 0.0 10^3/uL (0.0-0.1) 06/29/22 05:56 Absolute Nucleated RBC 0.00 x10^3/uL 06/29/22 05:56 Nucleated RBC % 0.0 /100WBC 06/29/22 05:56 PT 12.1 secs (9.9-12.6) 06/27/22 15:14 INR 1.1 (0.8-1.2) 06/27/22 15:14 Sodium 136 mmol/L (135-145) 06/29/22 05:56 Potassium 4.2 mmol/L (3.5-5.0) 06/29/22 05:56 Chloride 93 mmol/L (101-111) L 06/29/22 05:56 Carbon Dioxide 30 mmol/L (21-32) 06/29/22 05:56 Anion Gap 13.0 (6-13) 06/29/22 05:56 BUN 25 mg/dL (6-20) H 06/29/22 05:56 Creatinine 0.9 mg/dL (0.4-1.0) 06/29/22 05:56 Estimated GFR (MDRD) 62 (>89) L 06/29/22 05:56 Glucose 218 mg/dL (70-100) H 06/29/22 05:56 POC Whole Bld Glucose 133 mg/dL (70 - 100) H 06/29/22 16:26 Estimat Average Glucose 143 mg/dL (70-100) H 06/27/22 15:14 Hemoglobin A1c % 6.6 % (4.27-6.07) H 06/27/22 15:14 Calcium 8.9 mg/dL (8.5-10.3) 06/29/22 05:56 Total Bilirubin 0.4 mg/dL (0.2-1.0) 06/27/22 15:14 AST 11 IU/L (10-42) 06/27/22 15:14 ALT 13 IU/L (10-60) 06/27/22 15:14 Alkaline Phosphatase 71 IU/L (42-121) 06/27/22 15:14 Troponin I High Sens 14.1 ng/L (2.3-14.8) 06/27/22 18:37 B-Natriuretic Peptide 753 pg/mL (5-100) H 06/29/22 05:56 Total Protein 7.2 g/dL (6.7-8.2) 06/27/22 15:14 Albumin 3.4 g/dL (3.2-5.5) 06/27/22 15:14 Globulin 3.8 g/dL (2.1-4.2) 06/27/22 15:14 Albumin/Globulin Ratio 0.9 (1.0-2.2) L 06/27/22 15:14 Lipase 23 U/L (22-51) 06/27/22 15:14 Nasal Adenovirus (PCR) NOT DETECTED 06/27/22 15:09 Nasal B. parapertussis DNA (PCR) NOT DETECTED 06/27/22 15:09 Nasal Coronavir 229E PCR NOT DETECTED 06/27/22 15:09 Nasal Coronavir HKU1 PCR NOT DETECTED 06/27/22 15:09 Nasal Coronavir NL63 PCR NOT DETECTED 06/27/22 15:09 Nasal Coronavir OC43 PCR NOT DETECTED 06/27/22 15:09 Nasal Enterovir/Rhinovir PCR NOT DETECTED 06/27/22 15:09 Nasal Influenza B PCR NOT DETECTED 06/27/22 15:09 Nasal Influenza A PCR NOT DETECTED 06/27/22 15:09 Nasal Parainfluen 1 PCR NOT DETECTED 06/27/22 15:09 Nasal Parainfluen 2 PCR NOT DETECTED 06/27/22 15:09 Nasal Parainfluen 3 PCR NOT DETECTED 06/27/22 15:09 Nasal Parainfluen 4 PCR NOT DETECTED 06/27/22 15:09 Nasal RSV (PCR) NOT DETECTED 06/27/22 15:09 Nasal B.pertussis DNA PCR NOT DETECTED 06/27/22 15:09 Nasal C.pneumoniae (PCR) NOT DETECTED 06/27/22 15:09 [place] Human Metapneumo PCR NOT DETECTED 06/27/22 15:09 Nasal M.pneumoniae (PCR) NOT DETECTED 06/27/22 15:09 Nasal SARS-CoV-2 (PCR) NOT DETECTED 06/27/22 15:09
[2022-06-29] MEDS ORDERED: MICONAZOLE VAGINAL CREAM 45 GM TUBE VG SCH (21:00)
[2022-06-29] MEDS: IPRATROPIUM/ALBUTEROL 3 ML NEB INH PRN (21:06)
[2022-06-30] MEDS: SODIUM CHLORIDE FLUSH 0.9% 10 ML SYRINGE IVP SCH ×3 (00:39→18:05)
[2022-06-30 05:57] LABS: BASOPHILS % (AUTO) 0.1 %; HCT - HEMATOCRIT 42.4 % (37.0-47.0); HGB - HEMOGLOBIN 13.2 g/dL (12.0-16.0); LYMPHOCYTES # (AUTO) 1.1 10^3/uL (1.5-3.5); LYMPHOCYTES % (AUTO) 6.6 %; MEAN CORPUSCULAR HEMOGLOBIN 26.5 pg (27.0-31.0); MEAN CORPUSCULAR HGB CONC 31.1 g/dL (32.0-36.0); MEAN CORPUSCULAR VOLUME 85.1 fL (81.0-99.0); MEAN PLATELET VOLUME 10.5 fL (7.9-10.8); MONOCYTES # (AUTO) 0.4 10^3/uL (0.0-1.0); MONOCYTES % (AUTO) 2.1 %; NEUTROPHILS # (AUTO) 15.6 10^3/uL (1.5-6.6); NEUTROPHILS % (AUTO) 90.6 %; PLT - PLATELET COUNT 430 10^3/uL (130-450); RED BLOOD COUNT 4.98 10^6/uL (4.20-5.40); WHITE BLOOD COUNT 17.2 x10^3/uL (4.8-10.8)
[2022-06-30 06:04] LABS: CALCIUM 8.8 mg/dL (8.5-10.3); CREATININE 0.9 mg/dL (0.4-1.0); POTASSIUM 4.5 mmol/L (3.5-5.0)
[2022-06-30] MEDS: BUDESONIDE 0.5 MG/2 ML NEB INH SCH ×2 (07:08→20:30)
[2022-06-30] MEDS: FORMOTEROL FUMARATE NEB 20 MCG/2 ML INH SCH ×2 (07:08→20:30)
[2022-06-30] MEDS: FUROSEMIDE 40 MG TABLET PO SCH (07:46)
[2022-06-30] MEDS: metFORMIN 500 MG TABLET PO SCH ×2 (07:46→18:05)
[2022-06-30] MEDS: INSULIN LISPRO 300 UNIT/3 ML PEN SUBQ SCH ×4 (08:02→21:13)
[2022-06-30] MEDS: METOPROLOL SUCCINATE 25 MG TABLET PO SCH (08:53)
[2022-06-30] MEDS: LOSARTAN 50 MG TABLET PO SCH (08:54)
[2022-06-30] MEDS: methylPREDNISolone SUCCINATE 40 MG/ML VIAL IVP SCH ×2 (08:54→21:13)
[2022-06-30] MEDS: SERTRALINE 50 MG TABLET PO SCH (08:54)
[2022-06-30] MEDS: LACTOBACILLUS RHAMNOSUS GG CAPSULE PO SCH (08:54)
[2022-06-30] MEDS: ASPIRIN EC 81 MG TABLET PO SCH (08:54)
[2022-06-30] MEDS: CLOPIDOGREL 75 MG TABLET PO SCH (08:54)
[2022-06-30] MEDS: CHOLECALCIFEROL 400 UNIT TABLET PO SCH (08:54)
[2022-06-30] MEDS: ENOXAPARIN 40 MG/0.4 ML SYRINGE SUBQ SCH (08:54)
[2022-06-30] MEDS: SPIRONOLACTONE 25 MG TABLET PO SCH (08:55)
[2022-06-30] MEDS: NYSTATIN POWDER 15 GM TOP SCH ×2 (08:55→20:56)
[2022-06-30] MEDS: NYSTATIN CREAM 15 GM TUBE TOP SCH ×2 (08:55→20:56)
[2022-06-30] MEDS ORDERED: FLUCONAZOLE 100 MG TABLET PO STA (11:08)
--- NOTE | 2022-06-30 13:47 | PROVIDER PROGRESS NOTE ---
Assessment/Plan - Problem List (1) Diarrhea Assessment/Plan: Today the pt had a large liquid stool. Yesterday she had a moderate loose stool, but I was not informed of yesterday's stool. Plan: Will order stool for c. diff If c. diff is neg, than will order Imodium. (2) Acute and chronic respiratory failure with hypoxia Assessment/Plan: Her hypoxia is from a combination of COPD and CHF. Since being here she is on the same 2 L. She has not required increased use. Her main manifestation is severe tachypnea with minimal exertion. We are suspecting that this woman is severely deconditioned due to a sedentary lifestyle. Plan: Continue to treat the CHF and the COPD Evaluate for [place]-term rehab at [place] [facility] and I have ordered PT and OT (3) Acute cor pulmonale without pulmonary embolism In reviewing her echoes over the last 2 years, and the CT angiogram from yesterday, she is developing pulmonary artery dilation as well as elevated RVSP pressures. We suspect that cor pulmonale may be most of her dyspnea as opposed to true left-sided heart failure. Plan: Focusing on diuresis. Following amount of diuresis is a measurement of success. (4) Acute on chronic systolic heart failure. Ejection fraction over the years has gradually come down. She started at 65% than 55% then 50% on her echoes. She had a cardiac MRI in June 2021 with her NSTEMI and that calculated her ejection fraction at 34%. In speaking to pharmacy, who is reconciling her medications, this patient has not been co mpliant way more than she is admitting. She has not picked up some of her losartan for 6 months now. Spironolactone for 2 or 3 months. Plan: She is currently on Lasix 40 mg IV push twice a day, spironolactone 25 mg a day, losartan 50 mg a day, and metoprolol succinate 25 mg tablet, 1/2 tablet daily. We plan on continuing these medications until she is stable for discharge. (5) Loculated pleural effusion. Our interventional radiologist is not able to take care of this. And we do not have a surgeon that does VATS. This will have to be handled in the outpatient s etting. (6) COPD with exacerbation. Her iv steroid is being decreased since she is not wheezing. She is on budesonide via inhalation 0.5 mg twice a day, formoterol via inhalation twice a day, and DuoNeb. At home she only usually takes Ventolin HFA. Plan: At discharge we will most likely change her to Combivent and budesonide if she can afford it. (7) Coronary artery disease, status post percutaneous coronary angioplasty. She is gone to [facility] and had 2 stents the first time, and 1 stent the last time. With her most recent cardiac evaluation in June 2021 no stents. But she needs to have her risk factors modified. Again were back to discussing compliance. She needs to make sure she takes her aspirin, lovastatin, beta- vinita and Plavix. So far her troponins have been negative. (8) Thi infection of flexural areas. She had a shower followed by nystatin powder and cream. Pharmacy notes that she is supposed to be on fluconazole. That was prescribed by her primary care pro vider but she never picked up the prescription from June 24. In addition she wanted treatment of vaginal yeast. Miconazole was ordered for qpm and she refused that. Plan: Oral Fluconazole x1 ordered. (9) Noncompliance. Most likely due to lack of energy, depression and being overwhelmed with self- care needs. Social work will be working on helping her with her Medicaid ed case manager for getting Medicaid. Slowly working through the process for months calin n the road she may be able to find a [facility] bed. We have warned [place] have to go to the [facility]. All of this will happen months down the road. Right now our short-term goal is to stabilize her acute medical problems, return her to her own housing where she lives near her brother, and continue to work on placement down the road. (10) Elevated white cell count. No signs or symptoms of infection. Follow CBC intermittently. (11) Depressive disorder She was complaining that her primary care provider refilled her Zoloft incorrectly. She is supposed to be on 100 mg. According to the pharmacy reconciliation she has not had Zoloft 100 mg for close to a year. So when her primary care provider refilled it at 50 mg not 100 mg that was probably appropriate. Plan: Continue 50 mg dose while here (12) Type 2 diabetes mellitus, without complications, not on long-term use of insulin She is on steroids so her sugar has come up with that. However, even before the steroids, her A1c shows that her glucose has been elevated for at least the last 90 days. Plan: Continue with diabetic diet, fingerstick checks and ss Insulin Consult from dietary was requested re: diet discretion and lifestyle modification. - Current Meds Current Meds: Current Medications Generic Name Dose Route Start Last Admin Trade Name Freq PRN Reason Stop Dose Admin Albuterol/Ipratropium 3 ml 06/27/22 18:55 06/29/22 21:06 Ipratropium/Albuterol 3 Ml Neb INH 3 ml Q4HR PRN Administration Wheezing Aspirin 81 mg 06/28/22 09:00 06/30/22 08:54 Aspirin Ec 81 Mg Tablet PO 81 mg DAILY BETTYE Administration Budesonide 0.5 mg 06/27/22 19:00 06/30/22 07:08 Budesonide 0.5 Mg/2 Ml Neb INH 0.5 mg RTBID BETTYE Administration Cholecalciferol 800 unit 06/28/22 09:00 06/30/22 08:54 Cholecalciferol 400 Unit Tablet PO 800 unit DAILY BETTYE Administration Clopidogrel Bisulfate 75 mg 06/28/22 09:00 06/30/22 08:54 Clopidogrel 75 Mg Tablet PO 75 mg DAILY BETTYE Administration Enoxaparin Sodium 40 mg 06/28/22 09:00 06/30/22 08:54 Enoxaparin 40 Mg/0.4 Ml Syringe SUBQ 40 mg DAILY BETTYE Administration Formoterol Fumarate 20 mcg 06/29/22 19:00 06/30/22 07:08 Formoterol Fumarate Neb 20 Mcg/2 Ml INH 20 mcg RTBID BETTYE Administration Furosemide 40 mg 06/30/22 08:00 06/30/22 07:46 Furosemide 40 Mg Tablet PO 40 mg 0800 BETTYE Administration Insulin Human Lispro 1 - 5 unit 06/29/22 08:00 06/30/22 11:43 Insulin Lispro 300 Unit/3 Ml Pen SUBQ 3 unit 0800,1200,1700,2100 BETTYE Administration Protocol Lactobacillus Rhamnosus 1 cap 06/30/22 09:00 06/30/22 08:54 Lactobacillus Rhamnosus Gg Capsule PO 1 cap DAILY BETTYE Administration Losartan Potassium 50 mg 06/27/22 18:52 06/30/22 08:54 Losartan 50 Mg Tablet PO 50 mg DAILY BETTYE Administration Metformin HCl 500 mg 06/29/22 12:00 06/30/22 07:46 Metformin 500 Mg Tablet PO 500 mg BIDWM BETTYE Administration Methylprednisolone 40 mg 06/29/22 21:00 06/30/22 08:54 Methylprednisolone Succinate 40 Mg/Ml Vial IVP 40 mg BID BETTYE Administration Metoprolol Succinate 12.5 mg 06/28/22 09:00 06/30/22 08:53 Metoprolol Succinate 25 Mg Tablet PO 12.5 mg DAILY BETTYE Administration Nystatin 1 applic 06/27/22 21:00 06/30/22 08:55 Nystatin Cream 15 Gm Tube TOP 1 applic BID BETTYE Administration Nystatin 1 applic 06/27/22 21:00 06/30/22 08:55 Nystatin Powder 15 Gm TOP 1 applic BID BETTYE Administration Sertraline HCl 50 mg 06/28/22 09:00 06/30/22 08:54 Sertraline 50 Mg Tablet PO 50 mg DAILY BETTYE Administration Sodium Chloride 10 ml 06/27/22 17:12 06/29/22 06:36 Sodium Chloride Flush 0.9% 10 Ml Syringe IVP 10 ml PRN PRN Administration NEEDED PER PROVIDER ORDERS Sodium Chloride 10 ml 06/28/22 01:00 06/30/22 08:55 Sodium Chloride Flush 0.9% 10 Ml Syringe IVP 10 ml 0100,0900,1700 BETTYE Administration Spironolactone 25 mg 06/28/22 09:00 06/30/22 08:55 Spironolactone 25 Mg Tablet PO 25 mg DAILY BETTYE Administration - Lab Result Fish Bone Diagrams: 06/30/22 05:14 06/30/22 05:14 - Additional Planning My Orders: My Active Orders 06/29/22 Dinner Carb-controlled Diet [DIET] 06/29/22 21:00 methylPREDNISolone SUCCINATE [SOLU-Medrol (40MG VIAL)] 40 mg IVP BID 06/30/22 C DIFF PCR Stat 06/30/22 08:00 Furosemide [Lasix] 40 mg PO 0800 06/30/22 09:00 Lactobacillus Rhamnosus GG [Culturelle] 1 cap PO DAILY 06/30/22 10:59 Miscellaenous Nursing Order [RC] QSHIFT Subjective - Subjective Patient Reports: Diarrhea Objective Vital Signs: Vital Signs - 24 hr 06/29/22 06/29/22 06/29/22 15:57 21:11 21:12 Temperature 36.4 C L Heart Rate 57 L Heart Rate [ 60 Brachial] Respiratory 18 20 Rate Blood Pressure 118/54 L [Left Brachial artery] Blood Pressure [Right Brachial artery] O2 Saturation 92 If not protocol 2 2 2 : Oxygen Flow, liters/minute 06/30/22 06/30/22 06/30/22 00:39 07:13 07:23 Temperature 36.3 C L 36.4 C L Heart Rate 51 L Heart Rate [ 56 L 56 L Brachial] Respiratory 16 16 18 Rate Blood Pressure 139/59 H [Left Brachial artery] Blood Pressure 120/71 [Right Brachial artery] O2 Saturation 93 95 If not protocol 2 2 2 : Oxygen Flow, liters/minute Oxygen O2 Source [Without Activity] Room air O2 Source [With Activity] Nasal cannula O2 Source Nasal cannula Oxygen Flow Rate 2 I&O (Last 24 Hrs): Intake and Output Totals x24h 06/28/22 06/29/22 06/30/22 23:59 23:59 23:59 Intake Total 2250 3480 2975 Output Total 3536 1200 1800 Balance -1286 2280 1175 General: Alert, Oriented x3 HEENT: Mucous membr. moist/pink, Other (wearing O2 via n.c.) Neck: Supple Neuro: Alert, Non Focal Cardiovascular: Regular rate Respiratory: Breath sounds nml Abdomen: Soft, Other (Obese with pannus) Extremities: No clubbing, Other (Trace pedal edema) - Results Results: Laboratory Results WBC 17.2 x10^3/uL (4.8-10.8) H 06/30/22 05:14 RBC 4.98 10^6/uL (4.20-5.40) 06/30/22 05:14 Hgb 13.2 g/dL (12.0-16.0) 06/30/22 05:14 Hct 42.4 % (37.0-47.0) 06/30/22 05:14 MCV 85.1 fL (81.0-99.0) 06/30/22 05:14 MCH 26.5 pg (27.0-31.0) L 06/30/22 05:14 MCHC 31.1 g/dL (32.0-36.0) L 06/30/22 05:14 RDW 14.0 % (12.0-15.0) 06/30/22 05:14 Plt Count 430 10^3/uL (130-450) 06/30/22 05:14 MPV 10.5 fL (7.9-10.8) 06/30/22 05:14 Neut # (Auto) 15.6 10^3/uL (1.5-6.6) H 06/30/22 05:14 Lymph # (Auto) 1.1 10^3/uL (1.5-3.5) L 06/30/22 05:14 [place]borne # (Auto) 0.4 10^3/uL (0.0-1.0) 06/30/22 05:14 Eos # (Auto) 0.0 10^3/uL (0.0-0.7) 06/30/22 05:14 Baso # (Auto) 0.0 10^3/uL (0.0-0.1) 06/30/22 05:14 Absolute Nucleated RBC 0.00 x10^3/uL 06/30/22 05:14 Nucleated RBC % 0.0 /100WBC 06/30/22 05:14 PT 12.1 secs (9.9-12.6) 06/27/22 15:14 INR 1.1 (0.8-1.2) 06/27/22 15:14 Sodium 136 mmol/L (135-145) 06/30/22 05:14 Potassium 4.5 mmol/L (3.5-5.0) 06/30/22 05:14 Chloride 96 mmol/L (101-111) L 06/30/22 05:14 Carbon Dioxide 31 mmol/L (21-32) 06/30/22 05:14 Anion Gap 9.0 (6-13) 06/30/22 05:14 BUN 35 mg/dL (6-20) H 06/30/22 05:14 Creatinine 0.9 mg/dL (0.4-1.0) 06/30/22 05:14 Estimated GFR (MDRD) 62 (>89) L 06/30/22 05:14 Glucose 208 mg/dL (70-100) H 06/30/22 05:14 POC Whole Bld Glucose 230 mg/dL (70 - 100) H 06/30/22 11:04 Estimat Average Glucose 143 mg/dL (70-100) H 06/27/22 15:14 Hemoglobin A1c % 6.6 % (4.27-6.07) H 06/27/22 15:14 Calcium 8.8 mg/dL (8.5-10.3) 06/30/22 05:14 Total Bilirubin 0.4 mg/dL (0.2-1.0) 06/27/22 15:14 AST 11 IU/L (10-42) 06/27/22 15:14 ALT 13 IU/L (10-60) 06/27/22 15:14 Alkaline Phosphatase 71 IU/L (42-121) 06/27/22 15:14 Troponin I High Sens 14.1 ng/L (2.3-14.8) 06/27/22 18:37 B-Natriuretic Peptide 621 pg/mL (5-100) H 06/30/22 05:14 Total Protein 7.2 g/dL (6.7-8.2) 06/27/22 15:14 Albumin 3.4 g/dL (3.2-5.5) 06/27/22 15:14 Globulin 3.8 g/dL (2.1-4.2) 06/27/22 15:14 Albumin/Globulin Ratio 0.9 (1.0-2.2) L 06/27/22 15:14 Lipase 23 U/L (22-51) 06/27/22 15:14 Nasal Adenovirus (PCR) NOT DETECTED 06/27/22 15:09 Nasal B. parapertussis DNA (PCR) NOT DETECTED 06/27/22 15:09 Nasal Coronavir 229E PCR NOT DETECTED 06/27/22 15:09 Nasal Coronavir HKU1 PCR NOT DETECTED 06/27/22 15:09 Nasal Coronavir NL63 PCR NOT DETECTED 06/27/22 15:09 Nasal Coronavir OC43 PCR NOT DETECTED 06/27/22 15:09 Nasal Enterovir/Rhinovir PCR NOT DETECTED 06/27/22 15:09 Nasal Influenza B PCR NOT DETECTED 06/27/22 15:09 Nasal Influenza A PCR NOT DETECTED 06/27/22 15:09 Nasal Parainfluen 1 PCR NOT DETECTED 06/27/22 15:09 Nasal Parainfluen 2 PCR NOT DETECTED 06/27/22 15:09 Nasal Parainfluen 3 PCR NOT DETECTED 06/27/22 15:09 Nasal Parainfluen 4 PCR NOT DETECTED 06/27/22 15:09 Nasal RSV (PCR) NOT DETECTED 06/27/22 15:09 Nasal B.pertussis DNA PCR NOT DETECTED 06/27/22 15:09 Nasal C.pneumoniae (PCR) NOT DETECTED 06/27/22 15:09 [place] Human Metapneumo PCR NOT DETECTED 06/27/22 15:09 Nasal M.pneumoniae (PCR) NOT DETECTED 06/27/22 15:09 Nasal SARS-CoV-2 (PCR) NOT DETECTED 06/27/22 15:09
[2022-06-30] MEDS ORDERED: LOPERAMIDE 2 MG CAPSULE PO PRN (18:39)
[2022-07-01] MEDS: SODIUM CHLORIDE FLUSH 0.9% 10 ML SYRINGE IVP SCH ×2 (00:34→09:06)
[2022-07-01 05:35] LABS: BASOPHILS % (AUTO) 0.1 %; EOSINOPHILS % (AUTO) 0.1 %; HCT - HEMATOCRIT 43.6 % (37.0-47.0); HGB - HEMOGLOBIN 13.4 g/dL (12.0-16.0); LYMPHOCYTES # (AUTO) 0.9 10^3/uL (1.5-3.5); LYMPHOCYTES % (AUTO) 6.9 %; MEAN CORPUSCULAR HEMOGLOBIN 26.2 pg (27.0-31.0); MEAN CORPUSCULAR HGB CONC 30.7 g/dL (32.0-36.0); MEAN CORPUSCULAR VOLUME 85.3 fL (81.0-99.0); MEAN PLATELET VOLUME 10.5 fL (7.9-10.8); MONOCYTES # (AUTO) 0.4 10^3/uL (0.0-1.0); NEUTROPHILS # (AUTO) 11.9 10^3/uL (1.5-6.6); NEUTROPHILS % (AUTO) 88.9 %; PLT - PLATELET COUNT 420 10^3/uL (130-450); RED BLOOD COUNT 5.11 10^6/uL (4.20-5.40); RED CELL DISTRIBUTION WIDTH 13.9 % (12.0-15.0); WHITE BLOOD COUNT 13.4 x10^3/uL (4.8-10.8)
[2022-07-01 05:43] LABS: CALCIUM 8.6 mg/dL (8.5-10.3); CREATININE 0.9 mg/dL (0.4-1.0); MAGNESIUM 2.4 mg/dL (1.7-2.8); POTASSIUM 4.6 mmol/L (3.5-5.0)
[2022-07-01] MEDS: BUDESONIDE 0.5 MG/2 ML NEB INH SCH (06:56)
[2022-07-01] MEDS: FORMOTEROL FUMARATE NEB 20 MCG/2 ML INH SCH (06:57)
[2022-07-01 07:33] VITALS: BP 147/80
[2022-07-01] MEDS: methylPREDNISolone SUCCINATE 40 MG/ML VIAL IVP SCH (09:00)
[2022-07-01] MEDS: ENOXAPARIN 40 MG/0.4 ML SYRINGE SUBQ SCH (09:00)
[2022-07-01] MEDS: SPIRONOLACTONE 25 MG TABLET PO SCH (09:01)
[2022-07-01] MEDS: metFORMIN 500 MG TABLET PO SCH (09:01)
[2022-07-01] MEDS: FUROSEMIDE 40 MG TABLET PO SCH (09:01)
[2022-07-01] MEDS: ASPIRIN EC 81 MG TABLET PO SCH (09:01)
[2022-07-01] MEDS: SERTRALINE 50 MG TABLET PO SCH (09:02)
[2022-07-01] MEDS: INSULIN LISPRO 300 UNIT/3 ML PEN SUBQ SCH ×2 (09:02→12:16)
[2022-07-01] MEDS: LOSARTAN 50 MG TABLET PO SCH (09:03)
[2022-07-01] MEDS: CLOPIDOGREL 75 MG TABLET PO SCH (09:03)
[2022-07-01] MEDS: METOPROLOL SUCCINATE 25 MG TABLET PO SCH (09:04)
[2022-07-01] MEDS: NYSTATIN POWDER 15 GM TOP SCH (09:05)
[2022-07-01] MEDS: LACTOBACILLUS RHAMNOSUS GG CAPSULE PO SCH (09:05)
[2022-07-01] MEDS: NYSTATIN CREAM 15 GM TUBE TOP SCH (09:05)
--- NOTE | 2022-07-01 14:17 | Discharge Plan ---
"Discharge Plan for SNF / [facility] - Discharge Plan And Transition Orders Problem Reviewed?: Yes Disposition: 03 SNF DC/Xfer Condition: Fair Allergies and Adverse Reactions: Allergies Allergy/AdvReac Type Severity Reaction Status Date / Time Sulfa (Sulfonamide Allergy Hives Verified 07/01/21 15:06 Antibiotics) Health Concerns: The patient was hospitalized to treat shortness of breath from a CHF exacerbatio n and COPD exacerbation. Part of the cause was being noncompliant with medications prescribed to her. The patient is also very deconditioned, usually has minimal activity at home. The patient is being discharged to SNF for PT and OT rehab and continuation of her cardiac and lung medications. Plan of Treatment: As above. Daily PT and OT. Care Goals: Improvement in symptoms and stabilization of the goals. Assessment: Patient understands and is agreeable with the plan. - SNF / [facility] Transition Orders Admit to (Facility): [facility] (Swing bed status) Under the care of (Name): Dr Lowe Medicare Certification Statement: I certify that [facility] long[facility] care is medically necessary on a continuing basis for any of the conditions for which she/he is receiving care during hospitalization. Notify PCP of admission and forward orders to primary provider for signature. Weight on admission and: Daily Other Notification Orders: Call PCP immediately if patient develops dyspnea, chest pain/tightness or edema. House Bowel Program: Yes Additional Bowel Program Orders: If no BM after 2 days, nurse may give M.O.M. 30ml PO PRN and/or ducolax Supp 1 LA and/or MANDY 250mg P.O., and/or senna 1-2 tabs PO. On day 3 nurse may give repeat above order until residents constipation is resolved. Annual Influenza Vaccine (between Dec 10 and July 09): Yes Two-step PPD per [facility] [phone] or approved exception documents: Yes Oxygen Orders: 2L/min O2 continuously Medication Orders: PLEASE REFER TO THE DISCHARGE MEDICATION LIST. - Diet Type: Geriatric Texture: Regular Liquids: Thin May have monthly special meal: Yes - Therapies | Activity Rehabilitation Potential: Maximize functional status Weight Bearing: Full Weight"
--- NOTE | 2022-07-01 19:41 | DISCHARGE SUMMARY ---
Discharge Summary Admit Date: 06/27/22 Discharge Date: 07/01/22 Discharging Provider: Dr Fani Lowe Code Status: Attempt Resuscitation Condition at Discharge: Fair Discharge Disposition: SNF DC/Xfer - HPI History of Present Illness: This is a 72-year-old female who has a history of COPD, coronary artery disease, and CHF. She had an NSTEMI with a stent in 2017, another DE with stent in April 2019. She quit smoking in April 2019. She smoked cigarettes for 50 years. Echocardiogram in June 2019 showed her to have an ejection fraction of 60-65%. No evidence of pulmonary hypertension and no regional wall motion abnormalities. In June 2020, her Echo showed her ejection fraction to start dropping at 50-55%. She then had regional wall motion abnormalities with hypokinesis in the anteroseptal, apical distal anterior wall segment. She started developing moderately abnormal right heart pressures, with an RVSP at rest of 52 mmHg. She then had another Echo in September 2020 now showing a dilated left ventricle with moderate concentric left ventricular hypertrophy, overall systolic function was 50% due to severe hypokinesis of the entire apex and distal anterior wall. Right ventricle had normal size and function. No pulmonary pressures reported. When she comes to the hospital she usually presents in severe dyspnea. Her last hospitalization was in June 2021 (1 yr ago) where she came to the ER because "my heart was racing and I could not breathe". She is on home oxygen at 2 L/min. With the June 2021 admission she was felt to have flash pulmonary edema that required BiPAP and diuresis. In spite of being put in the ICU for this, she acutely worsened and initial troponin was 45 but went to 7983. She was started on a heparin drip, received Lopressor, Lipitor, 4 baby aspirin. The following day she was [facility]. She was at [facility] from July 05 through July 16, 2021. She underwent a cardiac MRI showing an ejection fraction of 34% and an LAD infarct. She subsequently underwent a left heart cath with findings of subtotal mid RCA lesions that were not amenable to PCI. Echocardiogram showed severely dilated left ventricle with severe systolic dysfunction. She was discharged on Lasix 20 mg twice daily, a low-sodium diet, Atorvastatin, EEntresto , Metoprolol succinate daily. Lisinopril was stopped. She was also felt to have chronic hypoxic resp failure that was multifactorial; from COPD and heart failure. Then she was discharged to [facility] for rehab. After rehab she was to go live with her brother. She told the ER provider today that she has been compliant with all the medications that she is supposed to take. She reported no new events. No new chest pain, 0r palpitations. But starting 3 weeks ago she began developing exertional dyspnea. It was accompanied by a dry cough, nonproductive. No fevers, chills, sweats. No chest pain. In the last 2 days it has gotten to the point that she can even walk 1 or 2 feet without being progressively short of breath. However, in reviewing her last office visit on June 24, 2022, that she had with her PCP, she missed her previous appointment with them, and she is noncompliant with her medical care. She did try to see Dr. Martin for her heart but he is semi-retired and she ended up seeing Dr. Gibbons in [place]. She just can't make that drive so she is now seeing BERHANE Layne in the [place] office. S he lives alone, feels isolated even though she lives next to her brother, was terrified of getting COVID, and was thinking about moving into assisted living. But she has Medicaid and needed to make that process happen, because she needs a spend down to apply. She admitted she was not good about taking her medications, and that at most she has been able to do sponge bath to take a bath because she is so tired and short of breath. Her hair finally became so matted that she cut it off. She eats "lots of junk". Her Medicaid case packer and sealer is trying to help her. She is still able to get to the toilet. But has fecal and urinary incontinence and has been wearing adult diapers for years. All the areas of her body that "fold over on itself", breast, pannus, groin, all have Thi. Breathing was really difficult with any movement such as standing or transferring. She says she is very depressed. She lives next to and rents from her brother, has her own little place on his property. She is intimating that his does not want her to live there anymore. Once she gets Medi-medi [place] Temperature was 36.7. Heart rate 69. Respirations 24. Blood pressure 137/51. She was 93% saturated and requiring 2 L nasal cannula which is her baseline. Weight is 115.6 kg. The ER provider and I discussed the case. The BNP was 857, patient was hypoxic and struggling to breathe. "She sounded like a freight train". In spite of diuresis with a urinary output of close to 450 cc, the patient was still short of breath. She also received Atrovent and Albuterol. Chest x-ray showed cardiomegaly with interstitial prominence and probable pleural effusions, and possibly pneumonia of the left lower lobe. So to make sure she was not having a PE and to get a better look at her lungs, the ER provider Ashanti Peterson NP ordered a CT angiogram. The pulmonary arteries were enlarged, but no pulmonary embolism. She had a left pleural effusion with a lo culated appearance along the posterior superior pleural area extending into the major fissure, left lower lobe atelectasis, cardiomegaly without pericardial effusion and right hilar adenopathy. We discussed the fact that this woman seems to have worsening pulmonary hypertension on Echo and large pulmonary arteries on CT. She has worsening dyspnea on exertion. Because of her previous cardiac history we thought about ischemia but her troponin was 12.4 and EKG was unchanged. We thought about pn eumonia but there is no real clear pneumonia on CT angiogram or chest x-ray. As such I will be bringing the patient in to diurese her for what we think is cor pulmonale and worsening pulmonary hypertension. She is noncompliant with medications and lifestyle restrictions. On top of that, she seems to have a new loculated pleural effusion. I made it very clear to the ER provider that we cannot take care of that here (due to DI, and IR scheduling). So if her pleural effusion is at all impacting on exertional dyspnea, she will need to follow-up in the outpatient setting. - HOSPITAL COURSE Hospital Course: (1) Acute and chronic respiratory failure with hypoxia Her hypoxia is from a combination of COPD and CHF. She was kept on the same 2 L/min O2 continuous, that she is on at home, and did not required increased settings. Her main manifestation was severe tachypnea with minimal exertion. So in addition to CHF and COPD, we suspect that this woman is severely deconditioned due to a sedentary lifestyle. (2) Acute cor pulmonale without pulmonary embolism In reviewing her Echoes over the last 2 years, and the CT angiogram, she is developing pulmonary artery dilation as well as elevated RVSP pressures. We suspect that cor pulmonale may be most of her dyspnea as opposed to true left- sided heart failure. Her symptoms of MENDEZ improved with diuresis. (3) Acute on chronic systolic heart failure. Ejection fraction over the years has gradually decreased. She started with EF 65%, than 55%, then 50% on her Echoes. She had a cardiac MRI in June 2021 with her NSTEMI and that calculated her ejection fraction at 34%. In speaking to pharmacy, who is reconciled her meds, this patient has not been compliant much more than she admitted: She has not picked up some of her losartan for 6 months now, and Spironolactone for 2-3 months. She got Lasix IV BID, spironolactone 25 mg daily, losartan, and metoprolol succinate. We continued these medications at discharge. She was discharged to [facility] (SNF status) for PT and OT rehab. (4) Loculated pleural effusion. Our Interventional Radiologist was not able to take care of this. And we do not have a surgeon that does VATS. This will have to be handled in the outpatient s etting. (5) COPD with exacerbation. She was started on iv steroid, then tapered that to off when she was not wheezing. She was also on budesonide via inhalation 0.5 mg twice a day, formoterol via inhalation twice a day, and DuoNeb. At home she only used Ventolin HFA. At home, she would benefit from being on Combivent and Budesonide (if she can afford it). (6) Thi infection of flexural areas. She had a shower followed by nystatin powder and cream. Pharmacy noted that she is supposed to be on fluconazole, prescribed by her primary care provider but she never picked up the prescription from June 24. In addition, she wanted treatment of vaginal yeast. Miconazole cream was ordered and she refused that. She got oral Fluconazole x1. (7) Diarrhea She started having liquid stool.A stool for c. diff was sent off, was neg and she got Imodium prn. Business Development Representative felt this diarrhea was from being started on Metformin while here. (8) Elevated white cell count. No signs or symptoms of infection, probably phase reactant. (9) Noncompliance Most likely due to deconditioning and lack of energy, plus depression and being overwhelmed with self-care needs. Compliance was stressed and she saw how much better she felt on her meds. Social Work helped her and her Medicaid case packer and sealer for getting Medicaid. But she must work through the process, for months down the road, to find a [facility] bed. She was discharged to [facility] (SNF status) for PT and OT rehab, continuing these meds that helped her, before returning home. (10) Coronary artery disease, status post percutaneous coronary angioplasty. [facility], and got 2 stents the first time, and 1 stent the last time. With her most recent cardiac evaluation in June 2021, no stents were placed. Her troponins ruled her out for an acute cor. syndrome now. She needs to have her risk factors modified, so again we were back to discussing compliance to make sure she takes her aspirin, lovastatin, beta-vinita and Plavix. (11) Major Depressive disorder She was complaining that her primary care provider refilled her Zoloft incorrectly, she thought she was supposed to be on 100 mg. According to the pharmacy reconciliation, she has not had Zoloft 100 mg for close to a year. So when her PCP refilled it at 50 mg, not 100 mg, that was probably appropriate. We continued 50 mg here. She was discharged to [facility] (SNF status) for PT and OT rehab, before returning home. (12) Type 2 diabetes mellitus, without complications, not on long-term use of insulin She was on steroids so her glu danyelle with that. However, even before the stero ids, her A1c was 6.6, indicating an avg glucose 143 for at least the last 90 days. She is obese, with BMI 42. We ordered a diabetic diet, fingerstick checks and ss Insulin. Then Metformin was started before she was discharged. Business Development Representative felt that her diarrhea was from being on Metformin immediate release. (So at discharge to home, after Swing bed, she will be ordered Metformin Long Acting). She had a consult from Business Development Representative re: diet discretion and lifestyle modification. - ALLERGIES Allergies/Adverse Reactions: Allergies Allergy/AdvReac Type Severity Reaction Status Date / Time Sulfa (Sulfonamide Allergy Hives Verified 07/01/21 15:06 Antibiotics) - MEDICATIONS Home Medications: Ambulatory Orders Medication Instructions Recorded Confirmed Aspirin [Aspirin EC] 81 mg PO DAILY 06/22/19 07/02/22 Atorvastatin Calcium 40 mg PO QPM 06/22/19 07/02/22 Clopidogrel Bisulfate [Clopidogrel] 75 mg PO DAILY 06/22/19 07/02/22 Nitroglycerin 0.4 mg SL Q5M PRN 06/22/19 07/02/22 Sertraline [Zoloft] 50 mg PO DAILY 06/11/20 07/02/22 Spironolactone [Aldactone] 25 mg PO DAILY 06/11/20 07/02/22 Nystatin Cream [Mycostatin Cream] 1 gm TOP BID #45 gr 06/12/20 07/02/22 Albuterol Sulf [Ventolin Hfa 2 puffs PO QID PRN 06/28/22 07/02/22 Inhaler] Losartan [Cozaar] 1 tab PO BID 06/28/22 07/02/22 Furosemide [Lasix] 40 mg PO DAILY #30 tab 07/05/22 Loperamide [Imodium] 2 mg PO QID PRN #10 cap 07/05/22 Metformin HCl [Metformin ER 500 mg PO DAILY #30 tab 07/05/22 Gastric] Metoprolol Succinate [Toprol Xl] 12.5 mg PO DAILY #15 tab 07/05/22 - PHYSICAL EXAM AT DISCHARGE General Appearance: positive: No acute distress, Alert, Other (Obese, in no distress and not withdrawn.) Eyes Bilateral: positive: Normal inspection, EOMI ENT: positive: ENT inspection nml, No signs of dehydration, Other (wearing O2 n.c.) Neck: positive: Nml inspection, No JVD Respiratory: positive: No respiratory distress, Breath sounds nml Cardiovascular: positive: Regular rate & rhythm, No murmur Abdomen: positive: Non-tender, Other (Obese with a large pannus. Redness in skin folds.) Skin: positive: Other ( Redness in many skin folds.) Extremities: positive: Non-tender, No pedal edema Neurologic/Psychiatric: positive: Oriented x3, Motor nml - LABS Result Diagrams: 07/01/22 05:05 07/01/22 05:05 - DIAGNOSTIC IMAGING Diagnostic Imaging Results: Final report reviewed - FOLLOW UP Follow Up: She was discharged for PT and OT rehab from here. - TIME SPENT Time Spent in Discharge (Minutes): 45
== END 2022-07-01 14:44 | DRG 291 ==
LOC: ED 14:11 → MS2 17:12
PROVIDERS: ADMIT Specialist; ATTEND Internal Medicine
DX: I11.0 Hypertensive heart disease with heart failure (principal); I50.9 Heart failure, unspecified; J44.9 Chronic obstructive pulmonary disease, unspecified; I49.3 Ventricular premature depolarization; I27.81 Cor pulmonale (chronic); E66.9 Obesity, unspecified; Z20.822 Contact with and (suspected) exposure to COVID-19; I50.33 Acute on chronic diastolic (congestive) heart failure; J96.21 Acute and chronic respiratory failure with hypoxia; Z68.41 Body mass index [BMI] 40.0-44.9, adult; J44.1 Chronic obstructive pulmonary disease with (acute) exacerbation; J90 Pleural effusion, not elsewhere classified; I25.10 Atherosclerotic heart disease of native coronary artery without angina pectoris; I25.2 Old myocardial infarction; B37.2 Candidiasis of skin and nail; I27.29 Other secondary pulmonary hypertension; E66.01 Morbid (severe) obesity due to excess calories; D72.829 Elevated white blood cell count, unspecified; F32.9 Major depressive disorder, single episode, unspecified; E11.9 Type 2 diabetes mellitus without complications; E55.9 Vitamin D deficiency, unspecified; M19.90 Unspecified osteoarthritis, unspecified site; F41.9 Anxiety disorder, unspecified; R15.9 Full incontinence of feces; R19.7 Diarrhea, unspecified; R32 Unspecified urinary incontinence; Z79.4 Long term (current) use of insulin; Z79.84 Long term (current) use of oral hypoglycemic drugs; Z82.49 Family history of ischemic heart disease and other diseases of the circulatory system; Z87.891 Personal history of nicotine dependence; Z88.2 Allergy status to sulfonamides; Z90.49 Acquired absence of other specified parts of digestive tract; Z91.14 Patient's other noncompliance with medication regimen; Z91.199 Patient's noncompliance with other medical treatment and regimen due to unspecified reason; Z91.89 Other specified personal risk factors, not elsewhere classified; Z95.5 Presence of coronary angioplasty implant and graft; Z99.81 Dependence on supplemental oxygen
CPT/HCPCS: 36415; 71045; 71275; 80048; 80053; 80061; 82607; 83036; 83690; 83735; 83880; 84443; 84484; 85025; 85610; 87493; 87633; 93005; 93306; 94640; 96374; 97110; 97116; 97161; 97165; 97530; 97535; 99284; 99285; A9270; J1650; J7626; Q9967; 83721

== ENCOUNTER 2022-06-27 15:14 | Outpatient (CLI) | payer MEDICARE ==
[2022-06-27 16:26] LABS: THYROID STIMULATING HORMONE 3.9 uIU/mL (0.34-5.60)
[2022-06-27 16:42] LABS: CHOL/HDL RATIO 4.2 (<4.4); CHOLESTEROL 130 mg/dL; HDL CHOLESTEROL 31 mg/dL; LDL CHOLESTEROL,CALCULATED 81 mg/dL; LDL/HDL RATIO 2.6 (<4.4); TRIGLYCERIDES 91 mg/dL; VLDL CHOLESTEROL 18 mg/dL
== END 2022-06-27 23:59 | disposition home or self-care (01) ==
LOC: LAB 15:14
PROVIDERS: ATTEND Nurse Practitioner Family
DX: I11.0 Hypertensive heart disease with heart failure (principal); I50.9 Heart failure, unspecified; I25.10 Atherosclerotic heart disease of native coronary artery without angina pectoris; J44.9 Chronic obstructive pulmonary disease, unspecified; E66.01 Morbid (severe) obesity due to excess calories; Z95.5 Presence of coronary angioplasty implant and graft; Z99.81 Dependence on supplemental oxygen; Z68.41 Body mass index [BMI] 40.0-44.9, adult; Z91.89 Other specified personal risk factors, not elsewhere classified
CPT/HCPCS: 36415; 80061; 83721; 84443

== ENCOUNTER 2022-07-01 13:01 | Inpatient (IN) | payer MEDICARE ==
[2022-07-01] MEDS ORDERED: IBUPROFEN 600 MG TABLET PO PRN (14:18)
[2022-07-01] MEDS ORDERED: ACETAMINOPHEN 325 MG TABLET PO PRN (14:18)
[2022-07-01] MEDS ORDERED: IPRATROPIUM/ALBUTEROL 3 ML NEB INH PRN (14:42)
[2022-07-01] MEDS ORDERED: oxyCODONE 5 MG TABLET PO PRN (14:44)
[2022-07-01] MEDS: metFORMIN 500 MG TABLET PO SCH (17:39)
[2022-07-01] MEDS: INSULIN LISPRO 300 UNIT/3 ML PEN SUBQ SCH ×2 (17:40→21:02)
[2022-07-01] MEDS: NYSTATIN POWDER 15 GM TOP SCH (21:03)
[2022-07-01] MEDS: BUDESONIDE 0.5 MG/2 ML NEB INH SCH (21:22)
[2022-07-01] MEDS: FORMOTEROL FUMARATE NEB 20 MCG/2 ML INH SCH (21:22)
[2022-07-01] MEDS: LOPERAMIDE 2 MG CAPSULE PO PRN (23:59)
[2022-07-02] MEDS: BUDESONIDE 0.5 MG/2 ML NEB INH SCH ×2 (07:14→19:25)
[2022-07-02] MEDS: FORMOTEROL FUMARATE NEB 20 MCG/2 ML INH SCH ×2 (07:14→19:25)
--- NOTE | 2022-07-02 08:03 | HISTORY & PHYSICAL EXAMINATION ---
Chief Complaint - Chief Complaint Chief Complaint: Deconditioned History of Present Illness - Admitted From Admitted From:: Inpatient status to SNF (Swing Bed) - History Obtained From History obtained from: Pt and records - History of Present Illness HPI Comment/Other: This is a 72-year-old white female with a history of obesity, diabetes mellitus, COPD, systolic heart failure on home oxygen at 2 L/min who was hospitalized recently for CHF and COPD exacerbation. She remained on her O2 supplemental which is set at 2 L/min continuously. She is very deconditioned and needs rehab with PT and OT before returning home where she lives alone. History - Past Medical History Cardiovascular: reports: Congestive heart failure, Hypertension, High cholesterol, Coronary artery disease, SC Respiratory: reports: COPD, Shortness of breath, Other Neuro: reports: None Endocrine/Autoimmune: reports: Other GI: reports: None [employer]: reports: None : reports: None HEENT: reports: None Psych: reports: Depression, Anxiety Musculoskeletal: reports: Osteoarthritis, Other Derm: reports: Other MRSA Hx?: No - Past Surgical History General: reports: Cholecystectomy, Appendectomy Cardiovascular: reports: Coronary stent HEENT: reports: Tonsil/Adenoidectomy - Family & Social History Family History: Mother: , Alzheimer's Disease, Father: , CAD Family History Comment/Other: Father from myocardial infarction in his early 50s. Mom of Alzheimer's complications. 3 of her brothers also have heart disease and have required CABGs. 2 brothers have of heart disease. She still has 5 brothers and 1 sister living. She has 2 daughters. Oldest 1 has problems with alcohol and personality disorder. Living Situation: Alone (Brother lives next door.) Social History Notes: She quit smoking with the SC, in April 2019. She had been smoking for about 50 years prior to that, varying between half a pack to a pack a day. She reports no alcohol use. She lives alone and has been retired for 2-3 years. 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 She lives next door to her brother. She has 2 grown daughters who live in [place] and [place]. - Substance History Use: Uses substance without health or social issues: NONE - POLST Patient has POLST: No POLST Status: WantsDNI/but CPR&defib OK Meds/Allgy - Home Medications Home Medications: Ambulatory Orders Medication Instructions Recorded Confirmed Aspirin [Aspirin EC] 81 mg PO DAILY 06/22/19 06/28/22 Atorvastatin Calcium 40 mg PO QPM 06/22/19 06/28/22 Clopidogrel Bisulfate [Clopidogrel] 75 mg PO DAILY 06/22/19 06/28/22 Nitroglycerin 0.4 mg SL Q5M PRN 06/22/19 06/28/22 Sertraline [Zoloft] 50 mg PO DAILY 06/11/20 06/28/22 Spironolactone [Aldactone] 25 mg PO DAILY 06/11/20 06/28/22 Nystatin Cream [Mycostatin Cream] 1 gm TOP BID #45 gr 06/12/20 06/28/22 Furosemide [Lasix] 20 mg PO BID 02/02/21 06/28/22 Metoprolol Succinate [Toprol Xl] 50 mg PO DAILY 07/04/21 06/28/22 Albuterol Sulf [Ventolin Hfa 2 puffs PO QID PRN 06/28/22 06/28/22 Inhaler] Losartan [Cozaar] 1 tab PO BID 06/28/22 06/28/22 - Allergies Allergies/Adverse Reactions: Allergies Allergy/AdvReac Type Severity Reaction Status Date / Time Sulfa (Sulfonamide Allergy Hives Verified 07/01/21 15:06 Antibiotics) Review of Systems - Constitutional Constitutional: reports: Weakness - Cardiovascular Cariovascular: reports: Exertional dyspnea - Respiratory Respiratory: reports: SOB with exertion, Other (On O2 continuously) - All Other Systems All Other Systems: reports: Reviewed and negative Exam - Vital Signs Reviewed Vital Signs: Yes Vital Signs: Vital Signs x48h Pulse Resp O2 Flow Rate 07/02/22 07:15 60 18 1 - Physical Exam General Appearance: positive: No acute distress, Other (Obese white female) Eyes Bilateral: positive: Normal inspection ENT: positive: ENT inspection nml, No signs of dehydration Neck: positive: Nml inspection, Other (Cannot evaluate JVP due to obesity) Respiratory: positive: No respiratory distress, Breath sounds nml Cardiovascular: positive: Regular rate & rhythm, No murmur Abdomen: positive: Other (Obese with pannus. Skin folds below the pannus are reddened (have powder applied)) Skin: positive: Warm, Dry, Other (Red rash in many skin folds) Extremities: positive: Non-tender, Other (Trace edema) Neurologic/Psychiatric: positive: Oriented x3 (Nonfocal) Conclusion/Plan - Problem List (1) Chronic respiratory failure with hypoxia, on home O2 therapy Conclusion/Plan: She is on home O2 at 2 L/min via nasal cannula Plan: We will have her continue with this O2 order, continuously (2) Cor pulmonale As per Echo. Plan: Continue with her usual oral diuretic dose (3) COPD Plan: Cont her usual meds and suppl O2. (4) Chronic systolic heart failure. Ejection fraction over the years has gradually come down. She started at 65% than 55% then 50% on her Echoes. She had a cardiac MRI in June 2021 with her NSTEMI and that calculated her ejection fraction at 34%. Plan: She is currently on Lasix, Spironolactone, losartan, and metoprolol succinate. We plan on continuing these medications. (5) Type 2 diabetes mellitus, with skin complication, without long-term use of insulin (E11.628) She is not on Insulin or oral meds at home. When she was on iv steroids, glu did rise. Her last A1c was __. We started her on new Metformin as an Inpt recently, this did give her initial diarrhea, which has decreased. Plan: Continue with diabetic diet, fingerstick checks and ss Insulin Cont Metformin (6) Thi infection of flexural skin As an Intpy, after a shower followed she gets nystatin powder and cream. Pharmacy notes that she is supposed to be on fluconazole. That was prescribed by her primary care provider but she never picked up the prescription from June 24. In addition she wanted treatment of vaginal yeast. Miconazole was ordered for qpm and she refused that. Oral Fluconazole x1 was ordered. Plan: Cont topical care (7) Diarrhea In the last 2 Inpt days, she had large liquid then loose stools. C diff test was neg. We had started Metformin as an Inpt recently, this did initially give her crampy diarrhea. The long-acting Metformin would be less diarrhea-causing, but we do not have that here on formulary. Plan: Cont prn Imodium. (8) CAD [facility] and [facility] 2 st[facility] the first time, and 1 stent the last time. With her most recent cardiac evaluation in June 2021 no stents. But she needs to have her risk factors modified. She has been non-compliant. Plan: We will continue her aspirin, statin, beta-vinita and Plavix. (9) Major Depressive disorder She was complaining that her primary care provider refilled her Zoloft incorrectly. She is supposed to be on 100 mg. According to the pharmacy reconciliation she has not had Zoloft 100 mg for close to a year. So when her primary care provider refilled it at 50 mg not 100 mg that was probably appropriate. Plan: Continue 50 mg dose while here (10) Drug noncompliance In speaking to pharmacy, who had reconciled her medications when she was recently an Inpt, she has not been compliant way more than she is admitting. She has not picked up some of her losartan for 6 months now, or Spironolactone for 2 or 3 months. Most likely due to lack of energy, depression and being overwhelmed with self- care needs. Plan: Compliance will be stressed The short-term goal is to help her rehab, return her to her own housing where she lives near her brother, and continue to work on eventual permanent placement which is her plan.
[2022-07-02] MEDS: ASPIRIN EC 81 MG TABLET PO SCH (08:05)
[2022-07-02] MEDS: FUROSEMIDE 40 MG TABLET PO SCH (08:05)
[2022-07-02] MEDS: CHOLECALCIFEROL 400 UNIT TABLET PO SCH (08:05)
[2022-07-02] MEDS: NYSTATIN POWDER 15 GM TOP SCH ×2 (08:05→20:40)
[2022-07-02] MEDS: LOSARTAN 50 MG TABLET PO SCH (08:06)
[2022-07-02] MEDS: metFORMIN 500 MG TABLET PO SCH ×2 (08:06→16:54)
[2022-07-02] MEDS: CLOPIDOGREL 75 MG TABLET PO SCH (08:06)
[2022-07-02] MEDS: SERTRALINE 50 MG TABLET PO SCH (08:06)
[2022-07-02] MEDS: INSULIN LISPRO 300 UNIT/3 ML PEN SUBQ SCH ×4 (08:07→20:41)
[2022-07-02] MEDS: SPIRONOLACTONE 25 MG TABLET PO SCH (08:07)
[2022-07-02] MEDS ORDERED: METOPROLOL SUCCINATE 25 MG TABLET PO SCH (09:00)
--- NOTE | 2022-07-02 16:41 | PHARMACY PROGRESS NOTE ---
- Best Possible Medication History Admit Date and Time: 07/01/22 1418 Processed by: Pharmacy Medication History completed: Yes Secondary Source(s): Previous admit records ([facility] DONE USING HOME MED LIST FROM ORIGINAL ADMIT BEFORE TRANSFERRING TO SWING BED.) As the person ultimately responsible for medication therapy, providers are able to order a medication from an existing home medication list in [facility] via the "Reconcile Routine" prior to Confirmation of that medication by technical support assistant. Such practice is discouraged except when the physician, in their clinical judgment, deems that a medical need exists for a medication without regard to previous use.
[2022-07-02] MEDS: LOPERAMIDE 2 MG CAPSULE PO PRN (20:39)
[2022-07-03] MEDS: FORMOTEROL FUMARATE NEB 20 MCG/2 ML INH SCH ×2 (07:47→19:00)
[2022-07-03] MEDS: BUDESONIDE 0.5 MG/2 ML NEB INH SCH ×2 (07:47→19:00)
[2022-07-03] MEDS: metFORMIN 500 MG TABLET PO SCH ×2 (09:06→17:55)
[2022-07-03] MEDS: INSULIN LISPRO 300 UNIT/3 ML PEN SUBQ SCH ×4 (09:06→21:02)
[2022-07-03] MEDS: CLOPIDOGREL 75 MG TABLET PO SCH (09:08)
[2022-07-03] MEDS: CHOLECALCIFEROL 400 UNIT TABLET PO SCH (09:08)
[2022-07-03] MEDS: ASPIRIN EC 81 MG TABLET PO SCH (09:08)
[2022-07-03] MEDS: METOPROLOL SUCCINATE 25 MG TABLET PO SCH (09:08)
[2022-07-03] MEDS: SPIRONOLACTONE 25 MG TABLET PO SCH (09:09)
[2022-07-03] MEDS: FUROSEMIDE 40 MG TABLET PO SCH (09:09)
[2022-07-03] MEDS: SERTRALINE 50 MG TABLET PO SCH (09:09)
[2022-07-03] MEDS: LOSARTAN 50 MG TABLET PO SCH (09:09)
[2022-07-03] MEDS: NYSTATIN POWDER 15 GM TOP SCH ×2 (09:10→21:02)
[2022-07-03] MEDS: LOPERAMIDE 2 MG CAPSULE PO PRN (14:44)
[2022-07-03] MEDS: SIMETHICONE CHEW 80 MG TABLET PO PRN (17:57)
[2022-07-04] MEDS: BUDESONIDE 0.5 MG/2 ML NEB INH SCH ×2 (06:10→18:50)
[2022-07-04] MEDS: FORMOTEROL FUMARATE NEB 20 MCG/2 ML INH SCH ×2 (06:10→18:50)
[2022-07-04] MEDS: metFORMIN 500 MG TABLET PO SCH ×2 (08:46→17:08)
[2022-07-04] MEDS: INSULIN LISPRO 300 UNIT/3 ML PEN SUBQ SCH ×4 (08:46→21:39)
[2022-07-04] MEDS: CLOPIDOGREL 75 MG TABLET PO SCH (08:47)
[2022-07-04] MEDS: SPIRONOLACTONE 25 MG TABLET PO SCH (08:47)
[2022-07-04] MEDS: LOSARTAN 50 MG TABLET PO SCH (08:47)
[2022-07-04] MEDS: FUROSEMIDE 40 MG TABLET PO SCH (08:47)
[2022-07-04] MEDS: SERTRALINE 50 MG TABLET PO SCH (08:47)
[2022-07-04] MEDS: ASPIRIN EC 81 MG TABLET PO SCH (08:48)
[2022-07-04] MEDS: METOPROLOL SUCCINATE 25 MG TABLET PO SCH (08:48)
[2022-07-04] MEDS: NYSTATIN POWDER 15 GM TOP SCH ×2 (08:48→23:28)
[2022-07-04] MEDS: CHOLECALCIFEROL 400 UNIT TABLET PO SCH (08:57)
[2022-07-04] MEDS ORDERED: METOPROLOL SUCCINATE 25 MG TABLET PO SCH (09:25)
[2022-07-04] MEDS: SIMETHICONE CHEW 80 MG TABLET PO PRN (11:07)
[2022-07-05] MEDS: BUDESONIDE 0.5 MG/2 ML NEB INH SCH (06:08)
[2022-07-05] MEDS: FORMOTEROL FUMARATE NEB 20 MCG/2 ML INH SCH (06:08)
[2022-07-05] MEDS: INSULIN LISPRO 300 UNIT/3 ML PEN SUBQ SCH ×2 (07:20→11:48)
[2022-07-05] MEDS: metFORMIN 500 MG TABLET PO SCH (08:01)
[2022-07-05] MEDS: ASPIRIN EC 81 MG TABLET PO SCH (08:01)
[2022-07-05] MEDS: CHOLECALCIFEROL 400 UNIT TABLET PO SCH (08:01)
[2022-07-05] MEDS: LOSARTAN 50 MG TABLET PO SCH (08:02)
[2022-07-05] MEDS: CLOPIDOGREL 75 MG TABLET PO SCH (08:02)
[2022-07-05] MEDS: FUROSEMIDE 40 MG TABLET PO SCH (08:02)
[2022-07-05] MEDS: NYSTATIN POWDER 15 GM TOP SCH (08:02)
[2022-07-05] MEDS: SPIRONOLACTONE 25 MG TABLET PO SCH (08:02)
--- NOTE | 2022-07-05 11:28 | Discharge Plan ---
Discharge Plan Problem Reviewed?: Yes Disposition: Home Health Service Condition: Stable Prescriptions: Loperamide [Imodium] 2 mg PO QID PRN #10 cap PRN Reason: Diarrhea Furosemide [Lasix] 40 mg PO DAILY #30 tab Metformin HCl [Metformin ER Gastric] 500 mg PO DAILY #30 tab Metoprolol Succinate [Toprol Xl] 12.5 mg PO DAILY #15 tab Diet: Diabetic Activity Restrictions: Activity as Tolerated Shower Restrictions: No Assistance Devices: Walker Weight Bearing: Full Weight Instruction Topics: Metformin extended-release tablets Health Concerns: You needed physical therapy rehab due to deconditioning. You are being discharged home today. A referral has been sent to give you a Home Health ag ency that will provide PT, OT, a bath aide, RN and Moving Consultant. Several of your medicines were adjusted. Please follow the current list of medications that is provided to you now. The extended release form of Metformin tablet has been ordered for you, to hopefully help decrease GI cramping. Your Metoprolol Succinate dose has decreased from 50 mg a day down to 12.5 mg a day. The Lasix dose is now just once a day but it is 40 mg not 20 mg. There is Imodium prescribed for you in case you still have diarrhea, to use as needed. New prescriptions were all electronically sent to your [facility] pharmacy in [place]. Please be compliant with taking all your medications, DON'T SKIP THEM, and please follow a proper low-salt and diabetic diet. This will help keep you out of the hospital. Please see your Primary Care Provider in the next 1 to 3 weeks for hospital follow-up visit. Plan of Treatment: As above. Care Goals: Improvement in symptoms and stabilization are the goals. Assessment: The patient understands and is agreeable with the plan. Additional Instructions or Follow Up instructions: If you have new or worsening symptoms, call your PCP for advice or come to the ER Follow-Up Care: Home Health - RN, Home Health - PT, Home Health - OT No Smoking: If you smoke, Please STOP! Call for help. Follow-up with: Gaviota Costello ARNP [Provider Admit Priv/Credential] -
--- NOTE | 2022-07-05 11:41 | DISCHARGE SUMMARY ---
Discharge Summary Admit Date: 07/01/22 Discharge Date: 07/05/22 Discharging Provider: Fani Lowe MD Primary Care Provider: Gaviota Costello NP Condition at Discharge: Stable Discharge Disposition: Home Health Service - [facility] History of Present Illness: This is a 72-year-old white female with a history of obesity, diabetes mellitus, COPD, systolic heart failure, on home oxygen at 2 L/min continuous, who was hospitalized recently for CHF and COPD exacerbation. She had exacerbations partly because she was non-compliant with medications and diet restrictions. She lives alone. She remained on her O2 supplemental which is set at 2 L/min continuously. She was very deconditioned and needed rehab with PT and OT before returning home. She is being admitted to Swing Bed status (SNF) here at [facility], to have PT and OT rehab. - HOSPITAL COURSE Hospital Course: (1) Chronic respiratory failure with hypoxia, on home O2 therapy She is on home O2 at 2 L/min via nasal cannula. This was continued here and for after discharge home. (2) Cor pulmonale As per Echo. We continued with her usual oral diuretic dose (3) COPD We continued her usual meds and suppl O2. (4) Chronic systolic heart failure. Ejection fraction over the years has gradually come down. She started at 65% than 55% then 50% on her Echoes. She had a cardiac MRI in June 2021 with her NSTEMI and that calculated her ejection fraction at 34%. She is currently on Lasix, Spironolactone, losartan, and metoprolol succinate. These were continued. 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 When she was on iv steroids, glu did rise. Her last A1c was 6.6. We started her on new Metformin as an Inpt recently, but this did give her initial diarrhea, which decreased somewhat. She was on a diabetic diet, fingerstick checks and ss Insulin. At discharge from this SNF (Swing Bed), she was prescribed new long acting Metformin once daily, which we do not have on hospital formulary, to have started here. (6) Thi infection of flexural skin As an Intp, after a shower she gets nystatin powder and cream. Pharmacy noted that she is supposed to be on fluconazole, that was prescribed by her primary care provider but she never picked up the prescription from June 24. (7) Diarrhea In the last 2 Inpt days, she had large liquid then loose stools. C diff test was neg. We had started Metformin as an Inpt recently, this did initially give her crampy diarrhea. She received prn Imodium. The long-acting Metformin would be less diarrhea-causing, but we do not have that here on formulary here. The long acting Metformin was prescribed for her after discharge. (8) CAD She has gone to the [facility] twice and had 2 stents the first time, and 1 stent the last time. With her most recent cardiac evaluation in June 2021, she got no stents. She needs to have her risk factors modified, since she has been non- compliant. We continued her aspirin, statin, beta-vinita and Plavix. (9) Major Depressive disorder She was complaining that her primary care provider refilled her Zoloft incorrectly, saying she is supposed to be on 100 mg. According to the pharmacy reconciliation, she has not had Zoloft 100 mg for close to a year. So when her primary care provider refilled it at 50 mg not 100 mg that was probably appropriate. We continued 50 mg dose while here. (10) Drug noncompliance In speaking to pharmacy, who had reconciled her medications when she was recently an Inpt, she has not been compliant much more than she is admitting. She had not picked up some of her losartan for 6 months, or her Spironolactone for 2 or 3 months. Compliance was stressed (11) Physical deconditioning She underwent rehab with PT and OT. She had rapid improvement and was able to be discharged in under a week. A referral was sent for a Home Health agency to provide her further in-home PT, OT, and a bath aide, and an RN and Calender Wind Up Helper, to check that she was compliant with medications and management. The short-term goal is to help her rehab, at her own housing where she lives near her brother, and continue to work on eventual permanent placement at a [place], which is her plan. - ALLERGIES Allergies/Adverse Reactions: Allergies Allergy/AdvReac Type Severity Reaction Status Date / Time Sulfa (Sulfonamide Allergy Hives Verified 07/01/21 15:06 Antibiotics) - MEDICATIONS Home Medications: Ambulatory Orders Medication Instructions Recorded Confirmed Aspirin [Aspirin EC] 81 mg PO DAILY 06/22/19 07/02/22 Atorvastatin Calcium 40 mg PO QPM 06/22/19 07/02/22 Clopidogrel Bisulfate [Clopidogrel] 75 mg PO DAILY 06/22/19 07/02/22 Nitroglycerin 0.4 mg SL Q5M PRN 06/22/19 07/02/22 Sertraline [Zoloft] 50 mg PO DAILY 06/11/20 07/02/22 Spironolactone [Aldactone] 25 mg PO DAILY 06/11/20 07/02/22 Nystatin Cream [Mycostatin Cream] 1 gm TOP BID #45 gr 06/12/20 07/02/22 Albuterol Sulf [Ventolin Hfa 2 puffs PO QID PRN 06/28/22 07/02/22 Inhaler] Losartan [Cozaar] 1 tab PO BID 06/28/22 07/02/22 Furosemide [Lasix] 40 mg PO DAILY #30 tab 07/05/22 Loperamide [Imodium] 2 mg PO QID PRN #10 cap 07/05/22 Metformin HCl [Metformin ER 500 mg PO DAILY #30 tab 07/05/22 Gastric] Metoprolol Succinate [Toprol Xl] 12.5 mg PO DAILY #15 tab 07/05/22 - PHYSICAL EXAM AT DISCHARGE General Appearance: positive: No acute distress, Alert, Other (Obese) Eyes Bilateral: positive: Normal inspection, EOMI ENT: positive: ENT inspection nml, No signs of dehydration Neck: positive: Nml inspection, Other (Cannot eval JVP due to obesity) Respiratory: positive: No respiratory distress Cardiovascular: positive: Regular rate & rhythm, No murmur Abdomen: positive: Non-tender, Other (Obese with a pannus, redness in skin folds improved) Skin: positive: Warm, Dry Extremities: positive: Non-tender, No pedal edema Neurologic/Psychiatric: positive: Oriented x3, Motor nml - FOLLOW UP Follow Up: See PCP in 1-2 weeks. - TIME SPENT Time Spent in Discharge (Minutes): 30
[2022-07-05] MEDS ORDERED: MAGNESIUM OXIDE 400 MG TABLET PO ONE (12:30)
[2022-07-05 13:47] VITALS: BP 116/73
== END 2022-07-05 13:40 | disposition home health service (06) | DRG 948 ==
LOC: MS2 14:18
PROVIDERS: ADMIT Internal Medicine; ATTEND Internal Medicine
DX: R53.1 Weakness (principal); J96.11 Chronic respiratory failure with hypoxia; I50.22 Chronic systolic (congestive) heart failure; K52.1 Toxic gastroenteritis and colitis; Z68.41 Body mass index [BMI] 40.0-44.9, adult; I27.81 Cor pulmonale (chronic); J44.9 Chronic obstructive pulmonary disease, unspecified; I11.0 Hypertensive heart disease with heart failure; E11.628 Type 2 diabetes mellitus with other skin complications; B37.2 Candidiasis of skin and nail; I25.10 Atherosclerotic heart disease of native coronary artery without angina pectoris; F32.9 Major depressive disorder, single episode, unspecified; T50.996A Underdosing of other drugs, medicaments and biological substances, initial encounter; E66.9 Obesity, unspecified; T38.3X5A Adverse effect of insulin and oral hypoglycemic [antidiabetic] drugs, initial encounter; F41.9 Anxiety disorder, unspecified; Z99.81 Dependence on supplemental oxygen; Z91.199 Patient's noncompliance with other medical treatment and regimen due to unspecified reason; I25.2 Old myocardial infarction; Z87.891 Personal history of nicotine dependence; Z91.128 Patient's intentional underdosing of medication regimen for other reason
CPT/HCPCS: 94640

== ENCOUNTER 2022-10-25 08:00 | Outpatient (CLI) | payer MEDICARE ==
[2022-10-25 19:02] LABS: CALCIUM 8.4 mg/dL (8.5-10.3); CREATININE 0.9 mg/dL (0.4-1.0); POTASSIUM 4.1 mmol/L (3.5-5.0)
== END 2022-10-25 23:53 | disposition home or self-care (01) ==
LOC: LAB.R 08:00
PROVIDERS: ATTEND Registered Nurse
DX: I50.23 Acute on chronic systolic (congestive) heart failure (principal)
CPT/HCPCS: 80048; 83880

== ENCOUNTER 2022-11-09 10:35 | Outpatient (CLI) | payer MEDICARE ==
[2022-11-09 11:01] LABS: CREATININE 0.7 mg/dL (0.6-1.3); POTASSIUM 3.6 mmol/L (3.5-4.5)
== END 2022-11-09 10:36 | disposition home or self-care (01) ==
LOC: LAB.R 10:35
PROVIDERS: ATTEND Registered Nurse
DX: I10 Essential (primary) hypertension (principal); M62.59 Muscle wasting and atrophy, not elsewhere classified, multiple sites
CPT/HCPCS: 80048

== ENCOUNTER 2023-01-07 13:40 | Outpatient (CLI) | payer MEDICARE ==
--- NOTE | 2023-01-07 15:29 | XRAY Report ---
PROCEDURE: Chest 2 View X-Ray INDICATIONS: COPD TECHNIQUE: 2 views of the chest were acquired. COMPARISON: None. FINDINGS: Surgical changes and devices: None. Lungs and pleura: No pleural effusions or pneumothorax. Mild diffuse interstitial prominence. Mediastinum: Mediastinal contours appear normal. Heart size is normal. Moderate hiatal hernia. Bones and chest wall: No suspicious bony lesions. Overlying soft tissues appear unremarkable. IMPRESSION: Moderate hiatal hernia. Mild diffuse interstitial prominence. Reviewed by: Edouard Sainz MD on 01/07/2023 3:28 PM PDT Approved by: Edouard Sainz MD on 01/07/2023 3:28 PM PDT Station ID: [id number]
== END 2023-01-07 13:41 | disposition home or self-care (01) ==
LOC: DI 13:40
PROVIDERS: ATTEND Registered Nurse
DX: J44.9 Chronic obstructive pulmonary disease, unspecified (principal); K44.9 Diaphragmatic hernia without obstruction or gangrene

== ENCOUNTER 2023-01-17 15:47 | Outpatient (CLI) | payer MEDICARE ==
[2023-01-17 15:56] LABS: BASOPHILS # (AUTO) 0.1 10^3/uL (0.0-0.1); BASOPHILS % (AUTO) 0.6 %; EOSINOPHILS # (AUTO) 0.5 10^3/uL (0.0-0.7); EOSINOPHILS % (AUTO) 4.1 %; HCT - HEMATOCRIT 40.7 % (37.0-47.0); HGB - HEMOGLOBIN 12.2 g/dL (12.0-16.0); LYMPHOCYTES # (AUTO) 2.1 10^3/uL (1.5-3.5); LYMPHOCYTES % (AUTO) 15.9 %; MEAN CORPUSCULAR HEMOGLOBIN 25.7 pg (27.0-31.0); MEAN CORPUSCULAR VOLUME 85.9 fL (81.0-99.0); MEAN PLATELET VOLUME 10.3 fL (7.9-10.8); MONOCYTES # (AUTO) 0.8 10^3/uL (0.0-1.0); MONOCYTES % (AUTO) 6.3 %; NEUTROPHILS # (AUTO) 9.6 10^3/uL (1.5-6.6); NEUTROPHILS % (AUTO) 72.7 %; PLT - PLATELET COUNT 446 10^3/uL (130-450); RED BLOOD COUNT 4.74 10^6/uL (4.20-5.40); RED CELL DISTRIBUTION WIDTH 14.8 % (12.0-15.0); WHITE BLOOD COUNT 13.1 x10^3/uL (4.8-10.8)
[2023-01-17 16:13] LABS: ALBUMIN 3.8 g/dL (3.2-5.5); ALBUMIN/GLOBULIN RATIO 1.2 (1.0-2.2); BILIRUBIN,TOTAL 0.3 mg/dL (0.2-1.0); CALCIUM 9.4 mg/dL (8.5-10.3); CREATININE 0.9 mg/dL (0.6-1.3); POTASSIUM 4.3 mmol/L (3.5-4.5); TOTAL PROTEIN 6.9 g/dL (6.4-8.9)
== END 2023-01-17 15:48 | disposition home or self-care (01) ==
LOC: LAB.R 15:47
PROVIDERS: ATTEND Registered Nurse
DX: I10 Essential (primary) hypertension (principal); J96.11 Chronic respiratory failure with hypoxia
CPT/HCPCS: 80053; 85025

== ENCOUNTER 2023-02-09 14:25 | Outpatient (CLI) | payer MEDICARE ==
[2023-02-09 15:55] LABS: B. PARAPERTUSSIS- RESP PCR PAN NOT DETECTED; B. PERTUSSIS- RESP PCR PANEL NOT DETECTED; C. PNEUMONIAE- RESP PCR PANEL NOT DETECTED; CORONAVIRUS 229E-RESP PCR NOT DETECTED; CORONAVIRUS HKU1-RESP PCR NOT DETECTED; CORONAVIRUS NL63-RESP PCR NOT DETECTED; CORONAVIRUS OC43-RESP PCR NOT DETECTED; HUMAN METAPNEUMOVIRUS NOT DETECTED; INFLUENZA A- RESP PCR PANEL NOT DETECTED; INFLUENZA B - RESP PCR PANEL NOT DETECTED; M. PNEUMONIAE- RESP PCR PANEL NOT DETECTED; PARAINFLUENZA VIRUS 1 NOT DETECTED; PARAINFLUENZA VIRUS 2 NOT DETECTED; PARAINFLUENZA VIRUS 3 NOT DETECTED; PARAINFLUENZA VIRUS 4 NOT DETECTED; RHINOVIRUS/ENTEROVIRUS NOT DETECTED; RSV- RESP PCR PANEL NOT DETECTED; SARS-CoV-2 -RESP PCR PANEL NOT DETECTED
== END 2023-02-09 14:26 | disposition home or self-care (01) ==
LOC: LAB.R 14:25
PROVIDERS: ATTEND Registered Nurse
DX: R50.9 Fever, unspecified (principal); R05.9 Cough, unspecified
CPT/HCPCS: 87633

== ENCOUNTER 2023-02-10 10:49 | Outpatient (CLI) | payer MEDICARE ==
--- NOTE | 2023-02-10 17:41 | XRAY Report ---
PROCEDURE: Chest 2 View X-Ray INDICATIONS: PNEUMONIA TECHNIQUE: 2 views of the chest were acquired. COMPARISON: 01/07/2023. FINDINGS: Surgical changes and devices: None. Lungs and pleura: No pleural effusions or pneumothorax. Lungs are clear. Mediastinum: Mediastinal contours appear normal. Heart size is enlarged. Bones and chest wall: No suspicious bony lesions. Moderate hiatal hernia is again seen. Overlying s oft tissues appear unremarkable. IMPRESSION: No acute cardiopulmonary process. Moderate hiatal hernia. Reviewed by: Erikc Barraza MD on 02/10/2023 5:40 PM PDT Approved by: Erick Barraza MD on 02/10/2023 5:40 PM PDT Station ID: [id number]
== END 2023-02-10 10:50 | disposition home or self-care (01) ==
LOC: DI 10:49
PROVIDERS: ATTEND Registered Nurse
DX: R06.89 Other abnormalities of breathing (principal); K44.9 Diaphragmatic hernia without obstruction or gangrene

== ENCOUNTER 2023-03-18 12:36 | Outpatient (CLI) | payer MEDICARE, MEDICAID ==
--- NOTE | 2023-03-18 16:28 | CT Report ---
PROCEDURE: CHEST WO INDICATIONS: COPD TECHNIQUE: Noncontrast 1mm axial images were acquired from the pulmonary apices to the posterior costophrenic an gles. Axial 5 mm soft tissue kernel reconstructions were performed as well as 8 mm axial MIP and cor onal and sagittal 5 mm reformations. For radiation dose reduction, the following was used: automate d exposure control, adjustment of mA and/or kV according to patient size. COMPARISON: 06/27/2022 FINDINGS: Image quality: Excellent. Lungs and pleura: Near complete resolution of a somewhat lobulated left pleural effusion involving th e posterior pleura and major fissure with near complete resolution of associated atelectatic lung. Th e residual density may represent underlying scarring. Biapical centrilobular emphysema is present. No suspicious pulmonary nodules. No pleural effusions. No pneumothorax. No suspicious pulmonary nodule s which require follow up. Mediastinum: Heart size is normal. Severe coronary artery calcifications with probable coronary arter y stent. No pericardial effusion. No large vessel abnormality. No mediastinal adenopathy by size crit eria. Chest wall and lower neck: Thyroid is unremarkable. No axillary or supraclavicular adenopathy by size . Bones: No aggressive osseous abnormality. Upper Abdomen: Unremarkable. IMPRESSION: 1. Virtually complete resolution of a process previously involving the left lung, which was predomina ntly loculated pleural fluid and subjacent atelectasis. 2. No significant acute pulmonary process. 3. Centrilobular emphysema. 4. No findings suspicious for malignancy. 5. Severe coronary artery calcifications, probable coronary artery stent. Reviewed by: Edouard Sainz MD on 03/18/2023 4:26 PM PST Approved by: Edouadr Sainz MD on 03/18/2023 4:26 PM PST Station ID: [id number]
== END 2023-03-18 12:37 | disposition home or self-care (01) ==
LOC: DI 12:36
PROVIDERS: ATTEND Internal Medicine Pulmonary Disease
DX: J44.9 Chronic obstructive pulmonary disease, unspecified (principal); J43.2 Centrilobular emphysema; I25.10 Atherosclerotic heart disease of native coronary artery without angina pectoris

== ENCOUNTER 2023-03-18 13:10 | Outpatient (CLI) | payer MEDICARE, MEDICAID ==
--- NOTE | 2023-03-18 16:28 | XRAY Report ---
PROCEDURE: Abdomen 1 View X-Ray INDICATIONS: ABDOMINAL AND FLANKS PAIN TECHNIQUE: One view of the abdomen acquired. COMPARISON: None. FINDINGS: Surgical changes and devices: None. Bowel: Bowel gas pattern is normal. Soft tissues: No suspicious abdominal calcifications. Visualized solid organ contours appear normal in size. Bones: No suspicious bony lesions. IMPRESSION: No acute abdominal pathology. Reviewed by: Edouard Sainz MD on 03/18/2023 4:27 PM PST Approved by: Edouard Sainz MD on 03/18/2023 4:27 PM PST Station ID: [id number]
== END 2023-03-18 13:11 | disposition home or self-care (01) ==
LOC: DI 13:10
PROVIDERS: ATTEND Registered Nurse
DX: R10.9 Unspecified abdominal pain (principal); J44.9 Chronic obstructive pulmonary disease, unspecified; J43.2 Centrilobular emphysema; I25.10 Atherosclerotic heart disease of native coronary artery without angina pectoris

== ENCOUNTER 2023-04-19 14:29 | Outpatient (CLI) | payer MEDICARE, MEDICAID | END 2023-04-19 14:30 | disposition home or self-care (01) | LOC: LAB 14:29 → LAB.R 14:30 | PROVIDERS: ATTEND Registered Nurse | DX: Z53.9 Procedure and treatment not carried out, unspecified reason (principal) | CPT/HCPCS: 80048 ==

== ENCOUNTER 2023-04-20 15:42 | Outpatient (CLI) | payer MEDICARE, MEDICAID ==
[2023-04-20 16:22] LABS: CALCIUM 9.1 mg/dL (8.5-10.3); CREATININE 0.8 mg/dL (0.6-1.3); POTASSIUM 3.9 mmol/L (3.5-4.5)
== END 2023-04-20 15:43 | disposition home or self-care (01) ==
LOC: LAB.R 15:42
PROVIDERS: ATTEND Registered Nurse
DX: I50.22 Chronic systolic (congestive) heart failure (principal)
CPT/HCPCS: 80048

== ENCOUNTER 2023-05-11 11:01 | Outpatient (CLI) | payer MEDICARE, MEDICAID ==
[2023-05-11] MEDS ORDERED: ALBUTEROL 1 PUFF INH STA (13:39)
== END 2023-05-11 11:02 | disposition home or self-care (01) ==
LOC: RT 11:01
PROVIDERS: ATTEND Internal Medicine Pulmonary Disease
DX: R06.09 Other forms of dyspnea (principal)
CPT/HCPCS: 94060; 94727; 94729

== ENCOUNTER 2023-05-18 14:28 | Outpatient (CLI) | payer MEDICARE, MEDICAID ==
[2023-05-18 14:38] LABS: BASOPHILS # (AUTO) 0.1 10^3/uL (0.0-0.1); BASOPHILS % (AUTO) 0.6 %; EOSINOPHILS # (AUTO) 0.2 10^3/uL (0.0-0.7); EOSINOPHILS % (AUTO) 2.3 %; LYMPHOCYTES # (AUTO) 1.3 10^3/uL (1.5-3.5); LYMPHOCYTES % (AUTO) 14.8 %; MEAN CORPUSCULAR HEMOGLOBIN 24.8 pg (27.0-31.0); MEAN CORPUSCULAR VOLUME 82.6 fL (81.0-99.0); MEAN PLATELET VOLUME 10.5 fL (7.9-10.8); MONOCYTES # (AUTO) 0.8 10^3/uL (0.0-1.0); MONOCYTES % (AUTO) 8.5 %; NEUTROPHILS # (AUTO) 6.6 10^3/uL (1.5-6.6); NEUTROPHILS % (AUTO) 73.4 %; PLT - PLATELET COUNT 344 10^3/uL (130-450); RED BLOOD COUNT 4.84 10^6/uL (4.20-5.40); RED CELL DISTRIBUTION WIDTH 15.4 % (12.0-15.0); WHITE BLOOD COUNT 8.9 x10^3/uL (4.8-10.8)
[2023-05-18 15:49] LABS: ALBUMIN 3.2 g/dL (3.2-5.5); BILIRUBIN,TOTAL 0.4 mg/dL (0.2-1.0); CALCIUM 8.5 mg/dL (8.5-10.3); CREATININE 0.9 mg/dL (0.6-1.3); POTASSIUM 4.3 mmol/L (3.5-4.5); TOTAL PROTEIN 6.4 g/dL (6.4-8.9)
[2023-05-18 15:50] LABS: B. PARAPERTUSSIS- RESP PCR PAN NOT DETECTED; B. PERTUSSIS- RESP PCR PANEL NOT DETECTED; C. PNEUMONIAE- RESP PCR PANEL NOT DETECTED; CORONAVIRUS 229E-RESP PCR NOT DETECTED; CORONAVIRUS HKU1-RESP PCR NOT DETECTED; CORONAVIRUS NL63-RESP PCR NOT DETECTED; CORONAVIRUS OC43-RESP PCR NOT DETECTED; HUMAN METAPNEUMOVIRUS NOT DETECTED; INFLUENZA A- RESP PCR PANEL NOT DETECTED; INFLUENZA B - RESP PCR PANEL NOT DETECTED; M. PNEUMONIAE- RESP PCR PANEL NOT DETECTED; PARAINFLUENZA VIRUS 1 NOT DETECTED; PARAINFLUENZA VIRUS 2 NOT DETECTED; PARAINFLUENZA VIRUS 3 NOT DETECTED; PARAINFLUENZA VIRUS 4 NOT DETECTED; RHINOVIRUS/ENTEROVIRUS NOT DETECTED; RSV- RESP PCR PANEL NOT DETECTED; SARS-CoV-2 -RESP PCR PANEL NOT DETECTED
== END 2023-05-18 14:29 | disposition home or self-care (01) ==
LOC: LAB.R 14:28
PROVIDERS: ATTEND Registered Nurse
DX: I10 Essential (primary) hypertension (principal); I48.20 Chronic atrial fibrillation, unspecified; J96.11 Chronic respiratory failure with hypoxia; Z13.83 Encounter for screening for respiratory disorder NEC
CPT/HCPCS: 80053; 85025; 87633

== ENCOUNTER 2023-05-21 08:00 | Outpatient (CLI) | payer MEDICARE, MEDICAID ==
[2023-05-21 12:28] LABS: BILIRUBIN,URINE NEGATIVE (NEGATIVE); GLUCOSE, URINE (UA) NEGATIVE (NEGATIVE); KETONES,URINE (UA) NEGATIVE (NEGATIVE); LEUKOCYTE ESTERASE, URINE NEGATIVE (NEGATIVE); NITRITE,URINE NEGATIVE (NEGATIVE); OCCULT BLOOD,URINE NEGATIVE (NEGATIVE); PROTEIN,URINE NEGATIVE (NEGATIVE); UROBILINOGEN,URINE 0.2 (NORMAL) E.U./dL (NORMAL)
[2023-05-21 12:30] LABS: CLARITY,URINE CLEAR (CLEAR)
== END 2023-05-21 23:59 | disposition home or self-care (01) ==
LOC: LAB.R 08:00
PROVIDERS: ATTEND Registered Nurse
DX: M62.59 Muscle wasting and atrophy, not elsewhere classified, multiple sites (principal)
CPT/HCPCS: 81001; 81003

== ENCOUNTER 2023-06-14 08:00 | Outpatient (CLI) | payer MEDICARE, MEDICAID ==
[2023-06-14 17:05] LABS: BILIRUBIN,URINE NEGATIVE (NEGATIVE); GLUCOSE, URINE (UA) NEGATIVE (NEGATIVE); KETONES,URINE (UA) NEGATIVE (NEGATIVE); LEUKOCYTE ESTERASE, URINE LARGE (NEGATIVE); NITRITE,URINE POSITIVE (NEGATIVE); OCCULT BLOOD,URINE SMALL (NEGATIVE); PH,URINE 6.5 PH (5.0-7.5); PROTEIN,URINE TRACE mg/dL (NEGATIVE); UROBILINOGEN,URINE 0.2 (NORMAL) E.U./dL (NORMAL)
[2023-06-14 17:33] LABS: BACTERIA,URINE Moderate /HPF (None Seen); CLARITY,URINE CLOUDY (CLEAR); RBC,URINE TNTC /HPF (0-5); SQUAMOUS EPITHELIAL CELL,UR NONE SEEN (<= Few); WBC,URINE >25 /HPF (0-5)
== END 2023-06-14 23:59 | disposition home or self-care (01) ==
LOC: LAB.R 08:00
PROVIDERS: ATTEND Registered Nurse
DX: N39.0 Urinary tract infection, site not specified (principal)
CPT/HCPCS: 81001; 87077; 87086; 87181

== ENCOUNTER 2023-06-15 14:53 | Outpatient (CLI) | payer MEDICARE, MEDICAID ==
[2023-06-15 15:07] LABS: BASOPHILS # (AUTO) 0.1 10^3/uL (0.0-0.1); BASOPHILS % (AUTO) 0.6 %; EOSINOPHILS # (AUTO) 0.4 10^3/uL (0.0-0.7); EOSINOPHILS % (AUTO) 2.9 %; HCT - HEMATOCRIT 41.7 % (37.0-47.0); HGB - HEMOGLOBIN 12.8 g/dL (12.0-16.0); LYMPHOCYTES # (AUTO) 1.8 10^3/uL (1.5-3.5); LYMPHOCYTES % (AUTO) 14.2 %; MEAN CORPUSCULAR HEMOGLOBIN 24.7 pg (27.0-31.0); MEAN CORPUSCULAR HGB CONC 30.7 g/dL (32.0-36.0); MEAN CORPUSCULAR VOLUME 80.3 fL (81.0-99.0); MEAN PLATELET VOLUME 9.5 fL (7.9-10.8); MONOCYTES # (AUTO) 1.1 10^3/uL (0.0-1.0); NEUTROPHILS % (AUTO) 72.7 %; PLT - PLATELET COUNT 513 10^3/uL (130-450); RED BLOOD COUNT 5.19 10^6/uL (4.20-5.40); RED CELL DISTRIBUTION WIDTH 15.5 % (12.0-15.0); WHITE BLOOD COUNT 12.4 x10^3/uL (4.8-10.8)
[2023-06-15 15:36] LABS: ALBUMIN 3.4 g/dL (3.2-5.5); ALBUMIN/GLOBULIN RATIO 0.9 (1.0-2.2); BILIRUBIN,TOTAL 0.3 mg/dL (0.2-1.0); CALCIUM 9.4 mg/dL (8.5-10.3); POTASSIUM 4.2 mmol/L (3.5-4.5); TOTAL PROTEIN 7.1 g/dL (6.4-8.9)
== END 2023-06-15 14:54 | disposition home or self-care (01) ==
LOC: LAB.R 14:53
PROVIDERS: ATTEND Registered Nurse
DX: I10 Essential (primary) hypertension (principal); I48.20 Chronic atrial fibrillation, unspecified
CPT/HCPCS: 80053; 85025

== ENCOUNTER 2023-06-26 08:00 | Outpatient (CLI) | payer MEDICARE, MEDICAID ==
[2023-06-26 15:04] LABS: ESTIMATED AVERAGE GLUCOSE 128 mg/dL (70-100); HEMOGLOBIN A1c% 6.1 % (4.27-6.07)
[2023-06-26 15:05] LABS: CALCIUM 9.3 mg/dL (8.5-10.3); CREATININE 0.9 mg/dL (0.6-1.3)
== END 2023-06-26 23:59 | disposition home or self-care (01) ==
LOC: LAB.R 08:00
PROVIDERS: ATTEND Registered Nurse
DX: E11.9 Type 2 diabetes mellitus without complications (principal); I10 Essential (primary) hypertension; M62.81 Muscle weakness (generalized)
CPT/HCPCS: 80048; 83036

== ENCOUNTER 2023-07-19 13:18 | Outpatient (CLI) | payer MEDICARE, MEDICAID ==
[2023-07-19 13:46] LABS: CALCIUM 9.4 mg/dL (8.5-10.3); POTASSIUM 4.2 mmol/L (3.5-4.5)
== END 2023-07-19 13:19 | disposition home or self-care (01) ==
LOC: LAB.R 13:18
PROVIDERS: ATTEND Registered Nurse
DX: E78.5 Hyperlipidemia, unspecified (principal)
CPT/HCPCS: 80048

== ENCOUNTER 2023-07-22 08:00 | Outpatient (CLI) | payer MEDICARE, MEDICAID | END 2023-07-22 23:59 | disposition home or self-care (01) | LOC: LAB.R 08:00 | PROVIDERS: ATTEND Registered Nurse | DX: R39.81 Functional urinary incontinence (principal) | CPT/HCPCS: 87077; 87086; 87181 ==

== ENCOUNTER 2023-07-31 18:27 | Outpatient (CLI) | payer MEDICARE, MEDICAID | END 2023-07-31 23:59 | disposition critical access hospital (66) | LOC: EMS 18:27 | DX: R33.9 Retention of urine, unspecified (principal); R39.89 Other symptoms and signs involving the genitourinary system | CPT/HCPCS: A0425; A0429 ==

== ENCOUNTER 2023-07-31 18:33 | Inpatient (IN) | payer MEDICARE, MEDICAID ==
--- NOTE | 2023-07-31 18:48 | ED Physician Documentation ---
History of Present Illness - Stated complaint Stated Complaint: - Chief complaint Chief Complaint: Abd Pain - History obtained from History obtained from: Patient, EMS - History of Present Illness Timing: Today Pain level max: 8 Pain level now: 8 - Additonal information Additional information: Patient is a 73-year-old female who was brought in from [facility] stating that she has been unable to urinate today. She states that the nurses said they could not place the [facility] at [facility] so they sent her here. Denies any fevers, vomiting. No abdominal pain. She states that she has bladder spasms. She recently finished a course of Rocephin for a UTI. Review of Systems Constitutional: denies: Fever, Chills Ears: denies: Ear pain Nose: denies: Rhinorrhea / runny nose, Congestion Respiratory: denies: Cough GI: denies: Nausea, Vomiting, Diarrhea Skin: denies: Rash Musculoskeletal: denies: Neck pain, Back pain PD PAST MEDICAL HISTORY - Past Medical History Cardiovascular: Congestive heart failure, Hypertension, High cholesterol, Coronary artery disease, [place] Respiratory: COPD, Shortness of breath, Other Neuro: None Endocrine/Autoimmune: Type 2 diabetes GI: None RESPIRATORY MEDICINE PHYSICIAN: None : None HEENT: None Psych: Depression, Anxiety Musculoskeletal: Osteoarthritis, Other Derm: Other - Past Surgical History Past Surgical History: Yes General: Cholecystectomy, Appendectomy Cardiovascular: Coronary stent HEENT: Tonsil/Adenoidectomy - Present Medications Home Medications: Ambulatory Orders Medication Instructions Recorded Confirmed Nitroglycerin 0.4 mg SL Q5M PRN 06/22/19 07/31/23 Albuterol Sulf [Ventolin Hfa 2 puffs PO QID PRN 06/28/22 07/31/23 Inhaler] Loperamide [Imodium] 2 mg PO QID PRN #10 cap 07/05/22 07/31/23 Acetaminophen [Tylenol] 650 mg PO Q4HR PRN tab 10/18/22 07/31/23 Aspirin [Aspirin EC] 81 mg PO DAILY #0 10/18/22 07/31/23 Atorvastatin Calcium 40 mg PO QPM #0 10/18/22 07/31/23 Calcium Carbonate [Tums (Calcium 500 mg PO BID PRN tab 10/18/22 07/31/23 Carbonate 500mg)] Clopidogrel [Plavix] 75 mg PO DAILY tab 10/18/22 07/31/23 Cyanocobalamin [Vitamin B-12] 500 mcg PO DAILY tab 10/18/22 07/31/23 Furosemide [Lasix] 2 tab PO DAILY #0 10/18/22 07/31/23 Nystatin [Nystop] 1 gm TOP BID PRN #0 10/18/22 07/31/23 Spironolactone [Aldactone] 25 mg PO DAILY #0 10/18/22 07/31/23 glipiZIDE [Glipizide] 5 mg PO BID #0 10/18/22 07/31/23 Bisacodyl Supp [Dulcolax Supp] 1 supp RC DAILY PRN 07/31/23 07/31/23 Cranberry Fruit Extract [Cranberry] 1,000 mg PO DAILY 07/31/23 07/31/23 Diclofenac Sodium 1% Gel [Voltaren 1 applic TOP DAILY PRN 07/31/23 07/31/23 Gel] Famotidine [Pepcid] 1 tab PO TID PRN 07/31/23 07/31/23 Ipratropium/Albuterol [Duoneb] 3 ml NEB Q6H PRN 07/31/23 07/31/23 Lidocaine Patch 4% [Lidocaine Pain 1 patch TOP DAILY PRN 07/31/23 07/31/23 Relief] Mag Hydrox/Aluminum Hyd/Simeth 30 ml PO Q4H PRN 07/31/23 07/31/23 [Alum-Mag Hydroxide-Simeth Cup] Metoprolol Succinate [Toprol Xl] 0.5 tab PO DAILY 07/31/23 07/31/23 Pantoprazole Sodium [Protonix] 1 tab PO DAILY 07/31/23 07/31/23 Potassium Chloride 1 cap PO DAILY 07/31/23 07/31/23 Sacubitril/Valsartan [Entresto 24 1 tab PO BID 07/31/23 07/31/23 mg-26 mg Tablet] Senna [Senokot] 2 tab PO DAILY PRN 07/31/23 07/31/23 Sertraline [Zoloft] 1.5 tab PO DAILY 07/31/23 07/31/23 Sodium Chloride [Salt Tab] 1 tab PO OAW 07/31/23 07/31/23 diphenhydrAMINE [Benadryl] 1 cap PO BID PRN 07/31/23 07/31/23 - Allergies Allergies/Adverse Reactions: Allergies Allergy/AdvReac Type Severity Reaction Status Date / Time Sulfa (Sulfonamide Allergy Hives Verified 07/31/23 18:46 Antibiotics) - Social History Does the pt smoke?: No Smoking Status: Never smoker Does the pt drink ETOH?: No Does the pt have substance abuse?: No - Immunizations Immunizations are current?: Yes - POLST Patient has POLST: No POLST Status: WantsDNI/but CPR&defib [place] PD ED PE NORMAL - Vitals Vital signs reviewed: Yes - General General: Alert and oriented X 3, No acute distress, Other (Patient appears flushed) - HEENT HEENT: PERRL, Moist mucous membranes - Neck Neck: Supple, no meningeal sign - Cardiac Cardiac: RRR, Strong equal pulses - Respiratory Respiratory: No respiratory distress, Clear bilaterally - Abdomen Abdomen: Soft, Non distended, Other (Tender palpation suprapubic. Distended bladder) - Back Back: No CVA TTP, No spinal TTP - Derm Derm: Warm and dry, No rash - Extremities Extremities: No edema, No calf tenderness / cord - Neuro Neuro: Alert and oriented X 3 - Psych Psych: Normal mood, Normal affect Results - Vitals Vitals: Vital Signs - 24 hr 07/31/23 07/31/23 07/31/23 18:41 19:30 20:00 Temperature 36.6 C Heart Rate 104 H 80 72 Respiratory 28 H 18 20 Rate Blood Pressure 93/57 L 74/44 L 87/47 L O2 Saturation 92 95 97 If not protocol 2 2 : Oxygen Flow, liters/minute 07/31/23 20:30 Temperature Heart Rate 69 Respiratory 20 Rate Blood Pressure 88/56 L O2 Saturation 96 If not protocol 2 : Oxygen Flow, liters/minute Oxygen O2 Source [Without Activity] Nasal cannula O2 Source [With Activity] Nasal cannula O2 Source Nasal cannula - Labs Labs: Laboratory Tests 07/31/23 07/31/23 07/31/23 18:54 19:10 19:10 WBC 14.6 H RBC 5.72 H Hgb 13.9 Hct 46.1 MCV 80.6 L MCH 24.3 L MCHC 30.2 L RDW 16.4 H Plt Count 569 H MPV 9.9 Neut # (Auto) 13.0 H Lymph # (Auto) 1.0 L [place] # (Auto) 0.5 Eos # (Auto) 0.0 Baso # (Auto) 0.1 Absolute Nucleated RBC 0.00 Nucleated RBC % 0.0 PT 13.2 H INR 1.2 APTT 32.9 Sodium Potassium Chloride Carbon Dioxide Anion Gap BUN Creatinine Estimated GFR (MDRD) Glucose Lactic Acid Calcium Total Bilirubin AST ALT Alkaline Phosphatase Total Protein Albumin Globulin Albumin/Globulin Ratio Lipase Urine Color YELLOW Urine Clarity HAZY Urine pH 6.0 Ur Specific [place] 1.010 Urine Protein NEGATIVE Urine Glucose (UA) NEGATIVE Urine Ketones NEGATIVE Urine Occult Blood MODERATE H Urine Nitrite NEGATIVE Urine Bilirubin NEGATIVE Urine Urobilinogen 0.2 (NORMAL) Ur Leukocyte Esterase LARGE H Urine RBC 11-25 H Urine WBC >25 H Ur Squamous Epith Cells RARE Squamous Urine Bacteria Rare Ur Microscopic Review INDICATED Urine Culture Comments INDICATED 07/31/23 07/31/23 19:10 19:10 WBC RBC Hgb Hct MCV MCH MCHC RDW Plt Count MPV Neut # (Auto) Lymph # (Auto) [place] # (Auto) Eos # (Auto) Baso # (Auto) Absolute Nucleated RBC Nucleated RBC % PT INR APTT Sodium 134 L Potassium 4.3 Chloride 96 L Carbon Dioxide 25 Anion Gap 13.0 BUN 16 Creatinine 1.1 Estimated GFR (MDRD) 49 L Glucose 146 H Lactic Acid 2.4 H Calcium 10.2 Total Bilirubin 0.4 AST 16 ALT 16 Alkaline Phosphatase 100 Total Protein 7.6 Albumin 4.0 Globulin 3.6 Albumin/Globulin Ratio 1.1 Lipase 10 L Urine Color Urine Clarity Urine pH Ur Specific [place] Urine Protein Urine Glucose (UA) Urine Ketones Urine Occult Blood Urine Nitrite Urine Bilirubin Urine Urobilinogen Ur Leukocyte Esterase Urine RBC Urine WBC Ur Squamous Epith Cells Urine Bacteria Ur Microscopic Review Urine Culture Comments - Rads (name of study) cxr Relevant Findings:: Final report received, See rad report PD Medical Decision Making - ED course Complexity details: reviewed results, re-evaluated patient, considered differential, d/w patient, d/w events solutions consultant ED course: A Mason catheter was placed approximately 1 L of urine was drained. Patient became hypotensive, 60/40. IV fluids were given. Blood pressure gradually improved. She does have a history of CHF, last echocardiogram was 2022 with an EF of 40%. Blood cultures were drawn, laboratory studies were drawn. Her lactate is elevated at 2.4. White blood cell count elevated. There was a report of a temperature of 103.2, but this was unable to be corroborated. So unclear if she has had fevers or not. Patient was started on Rocephin IV. Her chest x-ray and respiratory PCR are pending. Do not see any obvious pneumonia on chest x-ray. Discussed the case with Dr. Malik, hospitalist who accepts. Patient states that she feels much better after Mason catheter was placed and IV fluids given. She remained mildly hypotensive but has a normal mentation. This document was made in part using voice recognition software. While efforts are made to proofread this document, sound alike and grammatical errors may occur. - Critical Care Time(min): 35 Time Includes: Direct patient care, Review records, Reassess patient, Document care, Coordinate care, Medical consult, See progress note Data interpretation: Labs, CXR, See progress note Procedures included in critical care time: See progress note Procedures excluded from critical care time: See progress note - Sepsis Event Sepsis Onset Date: 07/31/23 Sepsis Onset Time: 20:40 Current Stage of Sepsis: Sepsis Initial Hypotension: SBP drop more than 40 mmHg from baseline Possible source of Sepsis: Genitourinary Mental/Cognitive Status: Alert/Oriented X3 Reason for not giving 30ml/kg crystalloid fluids: Not in septic shock Capillary refill: Less than 2 seconds Peripheral Pulse Strength: 2+ Slightly Diminished Peripheral Pulse Location: Radial Bedside ultrasound performed: No Departure - Departure Disposition: 66 [facility] DC/Xfer Clinical Impression: Urinary retention Sepsis Qualifiers: Sepsis type: sepsis due to unspecified organism Sepsis acute organ dysfunction status: without acute organ dysfunction Qualified Code(s): A41.9 - Sepsis, unspecified organism UTI (urinary tract infection) Qualifiers: Urinary tract infection type: acute cystitis Hematuria presence: without hematuria Qualified Code(s): N30.00 - Acute cystitis without hematuria Hypotension Qualifiers: Hypotension type: unspecified hypotension type Qualified Code(s): I95.9 - Hypotension, unspecified Condition: Stable
[2023-07-31 19:16] LABS: BASOPHILS # (AUTO) 0.1 10^3/uL (0.0-0.1); BASOPHILS % (AUTO) 0.5 %; EOSINOPHILS % (AUTO) 0.1 %; HCT - HEMATOCRIT 46.1 % (37.0-47.0); HGB - HEMOGLOBIN 13.9 g/dL (12.0-16.0); LYMPHOCYTES % (AUTO) 6.8 %; MEAN CORPUSCULAR HEMOGLOBIN 24.3 pg (27.0-31.0); MEAN CORPUSCULAR HGB CONC 30.2 g/dL (32.0-36.0); MEAN CORPUSCULAR VOLUME 80.6 fL (81.0-99.0); MEAN PLATELET VOLUME 9.9 fL (7.9-10.8); MONOCYTES # (AUTO) 0.5 10^3/uL (0.0-1.0); MONOCYTES % (AUTO) 3.2 %; PLT - PLATELET COUNT 569 10^3/uL (130-450); RED BLOOD COUNT 5.72 10^6/uL (4.20-5.40); RED CELL DISTRIBUTION WIDTH 16.4 % (12.0-15.0); WHITE BLOOD COUNT 14.6 x10^3/uL (4.8-10.8)
[2023-07-31] MEDS: SODIUM CHLORIDE 0.9% 1,000 ML IV STA ×3 (19:22→20:27)
[2023-07-31 19:26] LABS: PARTIAL THROMBOPLASTIN TIME 32.9 secs (24.9-33.3)
[2023-07-31 19:31] LABS: INR 1.2 (0.8-1.2); PT - PROTHROMBIN TIME 13.2 secs (9.9-12.6)
[2023-07-31 19:33] LABS: ALBUMIN/GLOBULIN RATIO 1.1 (1.0-2.2); BILIRUBIN,TOTAL 0.4 mg/dL (0.2-1.0); CALCIUM 10.2 mg/dL (8.5-10.3); CREATININE 1.1 mg/dL (0.6-1.3); POTASSIUM 4.3 mmol/L (3.5-4.5); TOTAL PROTEIN 7.6 g/dL (6.4-8.9)
[2023-07-31 19:34] LABS: BILIRUBIN,URINE NEGATIVE (NEGATIVE); GLUCOSE, URINE (UA) NEGATIVE (NEGATIVE); KETONES,URINE (UA) NEGATIVE (NEGATIVE); LEUKOCYTE ESTERASE, URINE LARGE (NEGATIVE); NITRITE,URINE NEGATIVE (NEGATIVE); OCCULT BLOOD,URINE MODERATE (NEGATIVE); PROTEIN,URINE NEGATIVE (NEGATIVE); UROBILINOGEN,URINE 0.2 (NORMAL) E.U./dL (NORMAL)
[2023-07-31 19:35] LABS: CLARITY,URINE HAZY (CLEAR)
[2023-07-31 19:45] LABS: WBC,URINE >25 /HPF (0-5)
[2023-07-31 19:46] LABS: BACTERIA,URINE Rare /HPF (None Seen); SQUAMOUS EPITHELIAL CELL,UR RARE Squamous (<= Few)
[2023-07-31 19:51] LABS: LACTIC ACID, VENOUS 2.4 mmol/L (0.5-2.2)
[2023-07-31] MEDS: cefTRIAXone 1 GM VIAL IVP STA (20:22)
--- NOTE | 2023-07-31 20:41 | HISTORY & PHYSICAL EXAMINATION ---
Chief Complaint - Chief Complaint Chief Complaint: Unable to void urine History of Present Illness - Admitted From Admitted From:: ER - History Obtained From Records Reviewed: Yes History obtained from: Pt, staff, chart Exam Limitations: Virtual exam - History of Present Illness HPI Comment/Other: H&P was conducted via video remotely, using Access Cart. Patient is in [place]. Physician is in [place]. 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 No one is at bedside. 73 yo F with PMH of COPD on 2L NC O2, CAD, CHF, HTN, HLD, DM type 2, Depression, DJD and recent UTI tx'd with Rocephin x 5 days presented to the ER for urinary retention x 1 day. Pt is from long-term [facility]. Pt says that she felt fine this morning. Around 1:30PM, she began to have bladder spasms, which were painful and progressively became more severe. She felt that she needed to u rinate, but was unable to void. OH staff attempted to place Mason, but was unable. Pt denies other symptoms. No N/V, F/C, CP/SOB. Pt had a shingles outbreak L back to abdo, starting 2 months ago and still has some scabs. She was tx'd for a UTI 7 days ago with Rocephin IM x 5 days, last dose 2 days ago. No dysuria. +Fatigue. Pt had ?elevated Temp in the ambulance. In the ER, BP 93/57-74/44-88/56, Na 134, Glc 146, LA 2.4, WBC 14.6, U/A: +LE WBC, Viral resp panel pending CXR:NAD Pt was given IVF x 3L, Rocephin 1 mg IV in the ER. Pt's BP responding to IVF in the ER. History - Past Medical History Cardiovascular: reports: Congestive heart failure, Hypertension, High cholesterol, Coronary artery disease, [place] Respiratory: reports: COPD, Shortness of breath, Other Neuro: reports: None Endocrine/Autoimmune: reports: Type 2 diabetes GI: reports: None BAIL BONDSMAN: reports: None : reports: None HEENT: reports: None Psych: reports: Depression, Anxiety Musculoskeletal: reports: Osteoarthritis, Other Derm: reports: Other MRSA Hx?: No - Past Surgical History General: reports: Cholecystectomy, Appendectomy Cardiovascular: reports: Coronary stent HEENT: reports: Tonsil/Adenoidectomy - Family & Social History Family History: Mother: , Alzheimer's Disease, Father: , CAD Family History Comment/Other: Father from myocardial infarction in his early 50s. Mom of Alzheimer's complications. 3 of her brothers also have heart disease and have required CABGs. 2 brothers have of heart disease. She still has 5 brothers and 1 sister living. She has 2 daughters. Oldest 1 has problems with alcohol and personality disorder. Living Situation: Alone (Brother lives next door.) Social History Notes: She quit smoking with the [place], in April 2019. She had been smoking for about 50 years prior to that, varying between half a pack to a pack a day. She reports no alcohol use. She lives alone and has been retired for 2-3 years. 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 She lives next door to her brother. She has 2 grown daughters who live in [place] and [place]. - Substance History Use: Uses substance without health or social issues: NONE - POLST Patient has POLST: No POLST Status: DNR Meds/Allgy - Home Medications Home Medications: Ambulatory Orders Medication Instructions Recorded Confirmed Nitroglycerin 0.4 mg SL Q5M PRN 06/22/19 07/31/23 Albuterol Sulf [Ventolin Hfa 2 puffs PO QID PRN 06/28/22 07/31/23 Inhaler] Loperamide [Imodium] 2 mg PO QID PRN #10 cap 07/05/22 07/31/23 Acetaminophen [Tylenol] 650 mg PO Q4HR PRN tab 10/18/22 07/31/23 Aspirin [Aspirin EC] 81 mg PO DAILY #0 10/18/22 07/31/23 Atorvastatin Calcium 40 mg PO QPM #0 10/18/22 07/31/23 Calcium Carbonate [Tums (Calcium 500 mg PO BID PRN tab 10/18/22 07/31/23 Carbonate 500mg)] Clopidogrel [Plavix] 75 mg PO DAILY tab 10/18/22 07/31/23 Cyanocobalamin [Vitamin B-12] 500 mcg PO DAILY tab 10/18/22 07/31/23 Furosemide [Lasix] 2 tab PO DAILY #0 10/18/22 07/31/23 Nystatin [Nystop] 1 gm TOP BID PRN #0 10/18/22 07/31/23 Spironolactone [Aldactone] 25 mg PO DAILY #0 10/18/22 07/31/23 glipiZIDE [Glipizide] 5 mg PO BID #0 10/18/22 07/31/23 Bisacodyl Supp [Dulcolax Supp] 1 supp RC DAILY PRN 07/31/23 07/31/23 Cranberry Fruit Extract [Cranberry] 1,000 mg PO DAILY 07/31/23 07/31/23 Diclofenac Sodium 1% Gel [Voltaren 1 applic TOP DAILY PRN 07/31/23 07/31/23 Gel] Famotidine [Pepcid] 1 tab PO TID PRN 07/31/23 07/31/23 Ipratropium/Albuterol [Duoneb] 3 ml NEB Q6H PRN 07/31/23 07/31/23 Lidocaine Patch 4% [Lidocaine Pain 1 patch TOP DAILY PRN 07/31/23 07/31/23 Relief] Mag Hydrox/Aluminum Hyd/Simeth 30 ml PO Q4H PRN 07/31/23 07/31/23 [Alum-Mag Hydroxide-Simeth Cup] Metoprolol Succinate [Toprol Xl] 0.5 tab PO DAILY 07/31/23 07/31/23 Pantoprazole Sodium [Protonix] 1 tab PO DAILY 07/31/23 07/31/23 Potassium Chloride 1 cap PO DAILY 07/31/23 07/31/23 Sacubitril/Valsartan [Entresto 24 1 tab PO BID 07/31/23 07/31/23 mg-26 mg Tablet] Senna [Senokot] 2 tab PO DAILY PRN 07/31/23 07/31/23 Sertraline [Zoloft] 1.5 tab PO DAILY 07/31/23 07/31/23 Sodium Chloride [Salt Tab] 1 tab PO OAW 07/31/23 07/31/23 diphenhydrAMINE [Benadryl] 1 cap PO BID PRN 07/31/23 07/31/23 - Allergies Allergies/Adverse Reactions: Allergies Allergy/AdvReac Type Severity Reaction Status Date / Time Sulfa (Sulfonamide Allergy Hives Verified 07/31/23 18:46 Antibiotics) Review of Systems - All Other Systems All Other Systems: reports: Reviewed and negative Exam - Vital Signs Reviewed Vital Signs: Yes Vital Signs: Vital Signs x48h Temp Pulse Resp BP Pulse Ox 07/31/23 18:41 36.6 C 104 H 28 H 93/57 L 92 - Physical Exam General Appearance: positive: No acute distress, Alert Eyes Bilateral: positive: EOMI, No scleral icterus Respiratory: positive: Other (Access cart stethoscope not working; per ER Provid er: CTA B/L) Cardiovascular: positive: Other (Access cart stethoscope not working; per ER Provider: RRR, no murmurs) Abdomen: positive: Other (per ER Provider: non-distended, Soft, Tender palpation suprapubic. Distended bladder) Extremities: positive: Other (per ER Provider: moves all extrem, no edema) Neurologic/Psychiatric: positive: Oriented x3, Mood/affect nml Sepsis Event Note (H) - Sepsis Criteria Sepsis Criteria: WBC count greater than 12,000 or less than 4000, SBP less than 90 mmHg, Metabolic: lactate > 2 mmol/L Conclusion/Plan - Problem List (1) Sepsis Conclusion/Plan: Sepsis UTI Hypotension Lactic Acidosis Leukocytosis Recent UTI Urinary Retention -BP 93/57-74/44-88/56, Na 134, LA 2.4, WBC 14.6, U/A: +LE WBC, Viral resp panel pending -CXR:NAD -Pt was given IVF x 3L, Rocephin 1 mg IV in the ER. -Pt's BP responding to IVF in the ER. -Mason catheter placed in the ER; continue -admit to ICU -Resp viral panel pending -continue Rocephin -continue cautious IVF support -hold home medications: Metoprolol, Lasix, Spironolactone; hold Benadryl d/t SE of urinary retention -repeat LA in AM -F/U on UC COPD on 2L NC O2 -continue O2 support -continue home medications: Duonebs PRN CAD CHF HTN HLD -Echo 06/2022: EF 40% -continue home medications: ASA/Plavix, statin -hold home medications: Metoprolol, Lasix, Spironolactone d/t Hypotension DM type 2 -Glc 146 -accuchecks, SS Insulin, Hypoglycemic protocol -home medications: Glipizide -check Hgba1c Depression, -continue home medications:Zoloft GERD -continue home medications: PPI DJD -continue home medications: Diclofenac gel, Tylenol VTE Prophylaxis: Lovenox Code Status: D/W pt; she is DNR/DNI; she does not want CPR or intubation. ~Katey Malik MD Hospitalist Qualifiers: Sepsis type: sepsis due to unspecified organism Sepsis acute organ dysfunction status: without acute organ dysfunction Qualified Code(s): A41.9 - Sepsis, unspecified organism - Lab Results Lab results reviewed: Yes Fish Bones: 07/31/23 19:10 07/31/23 19:10
--- NOTE | 2023-07-31 20:45 | XRAY Report ---
PROCEDURE: Chest 1V INDICATIONS: sepsis TECHNIQUE: One view of the chest was acquired. COMPARISON: 10/10/2022, 01/07/2023, 02/10/2023. FINDINGS: Surgical changes and devices: None. Lungs and pleura: Diffuse interstitial prominence. Perihilar airway thickening. Mild vascular conges tion. No pneumothorax. Hiatal hernia redemonstrated. Mediastinum: Mediastinal contours appear stable. Heart size is enlarged. Bones and chest wall: No suspicious bony lesions. Overlying soft tissues appear unremarkable. IMPRESSION: Cardiomegaly with findings compatible with pulmonary edema/CHF. A concurrent infectious/inflammatory processes not excluded if clinically appropriate. No focal airspace disease. Reviewed by: Donta Heck MD on 07/31/2023 8:43 PM PDT Approved by: Donta Heck MD on 07/31/2023 8:43 PM PDT Station ID: [id number]
[2023-07-31] MEDS ORDERED: ACETAMINOPHEN 325 MG TABLET PO PRN (20:52)
[2023-07-31] MEDS ORDERED: SENNA 8.6 MG TABLET PO PRN (20:52)
[2023-07-31] MEDS ORDERED: CALCIUM CARBONATE CHEW 500 MG TABLET PO PRN (20:52)
[2023-07-31] MEDS ORDERED: FAMOTIDINE 20 MG TABLET PO PRN (20:52)
[2023-07-31] MEDS ORDERED: DICLOFENAC SODIUM 1% GEL 50 GM TUBE TOP PRN (20:52)
[2023-07-31] MEDS ORDERED: BISACODYL 10 MG SUPP PR PRN (20:52)
[2023-07-31] MEDS ORDERED: NITROGLYCERIN SL 0.4 MG TABLET SL PRN (20:52)
[2023-07-31] MEDS ORDERED: ONDANSETRON ODT 4 MG TABLET TL PRN (20:57)
[2023-07-31] MEDS ORDERED: ONDANSETRON 4 MG/2 ML VIAL IVP PRN (20:57)
[2023-07-31] MEDS ORDERED: ALBUTEROL NEB 2.5 MG/3 ML INH PRN (21:20)
[2023-07-31 21:57] LABS: B. PARAPERTUSSIS- RESP PCR PAN NOT DETECTED; B. PERTUSSIS- RESP PCR PANEL NOT DETECTED; C. PNEUMONIAE- RESP PCR PANEL NOT DETECTED; CORONAVIRUS 229E-RESP PCR NOT DETECTED; CORONAVIRUS HKU1-RESP PCR NOT DETECTED; CORONAVIRUS NL63-RESP PCR NOT DETECTED; CORONAVIRUS OC43-RESP PCR NOT DETECTED; HUMAN METAPNEUMOVIRUS NOT DETECTED; INFLUENZA A- RESP PCR PANEL NOT DETECTED; INFLUENZA B - RESP PCR PANEL NOT DETECTED; M. PNEUMONIAE- RESP PCR PANEL NOT DETECTED; PARAINFLUENZA VIRUS 1 NOT DETECTED; PARAINFLUENZA VIRUS 2 NOT DETECTED; PARAINFLUENZA VIRUS 3 NOT DETECTED; PARAINFLUENZA VIRUS 4 NOT DETECTED; RHINOVIRUS/ENTEROVIRUS NOT DETECTED; RSV- RESP PCR PANEL NOT DETECTED; SARS-CoV-2 -RESP PCR PANEL NOT DETECTED
[2023-07-31] MEDS: SODIUM CHLORIDE FLUSH 0.9% 10 ML SYRINGE IVP SCH (22:28)
[2023-07-31] MEDS: ATORVASTATIN 40 MG TABLET PO SCH (22:28)
[2023-08-01] MEDS ORDERED: ZINC OXIDE 12% OINT 57 GM TUBE TOP PRN ×2 (02:10→21:56)
[2023-08-01] MEDS ORDERED: LACTATED RINGERS 1,000 ML IV ONE (04:08)
[2023-08-01] MEDS: SODIUM CHLORIDE 0.9% 1,000 ML IV ONE (04:16)
[2023-08-01 04:42] LABS: BASOPHILS # (AUTO) 0.1 10^3/uL (0.0-0.1); BASOPHILS % (AUTO) 0.5 %; EOSINOPHILS # (AUTO) 0.2 10^3/uL (0.0-0.7); EOSINOPHILS % (AUTO) 1.6 %; HCT - HEMATOCRIT 38.8 % (37.0-47.0); HGB - HEMOGLOBIN 11.1 g/dL (12.0-16.0); LYMPHOCYTES % (AUTO) 18.7 %; MEAN CORPUSCULAR HEMOGLOBIN 24.2 pg (27.0-31.0); MEAN CORPUSCULAR HGB CONC 28.6 g/dL (32.0-36.0); MEAN CORPUSCULAR VOLUME 84.7 fL (81.0-99.0); MONOCYTES # (AUTO) 0.9 10^3/uL (0.0-1.0); MONOCYTES % (AUTO) 7.9 %; NEUTROPHILS # (AUTO) 7.7 10^3/uL (1.5-6.6); NEUTROPHILS % (AUTO) 70.9 %; PLT - PLATELET COUNT 376 10^3/uL (130-450); RED BLOOD COUNT 4.58 10^6/uL (4.20-5.40); RED CELL DISTRIBUTION WIDTH 16.2 % (12.0-15.0); WHITE BLOOD COUNT 10.8 x10^3/uL (4.8-10.8)
[2023-08-01 04:53] LABS: CALCIUM, IONIZED 1.1 mmol/L (1.15-1.33); VBG PH 7.362 (7.31-7.41)
[2023-08-01 04:59] LABS: CALCIUM 8.6 mg/dL (8.5-10.3); CREATININE 0.9 mg/dL (0.6-1.3); MAGNESIUM 1.6 mg/dL (1.7-2.3); PHOSPHORUS 3.4 mg/dL (2.5-5.0); POTASSIUM 3.6 mmol/L (3.5-4.5)
[2023-08-01] MEDS: SODIUM CHLORIDE 0.9% 1,000 ML IV SCH (05:28)
[2023-08-01] MEDS: CALCIUM CARBONATE CHEW 500 MG TABLET PO SCH (06:29)
[2023-08-01] MEDS: MAGNESIUM OXIDE 400 MG TABLET PO ONE (06:29)
[2023-08-01] MEDS: PANTOPRAZOLE 40 MG TABLET PO SCH (06:29)
[2023-08-01] MEDS ORDERED: LIDOCAINE PATCH 5% TOP PRN (07:01)
[2023-08-01] MEDS: INSULIN LISPRO 300 UNIT/3 ML PEN SUBQ SCH (07:36)
[2023-08-01] MEDS: SERTRALINE 50 MG TABLET PO SCH (08:10)
[2023-08-01] MEDS: CLOPIDOGREL 75 MG TABLET PO SCH (08:10)
[2023-08-01] MEDS: CYANOCOBALAMIN 500 MCG TABLET PO SCH (08:10)
[2023-08-01] MEDS: ASPIRIN EC 81 MG TABLET PO SCH (08:10)
[2023-08-01] MEDS: POTASSIUM CHLORIDE 20 MEQ TABLET PO ONE ×2 (08:11→15:08)
[2023-08-01] MEDS: ethyl alcohoL 62% SWAB AMPULE NAS SCH (08:11)
[2023-08-01] MEDS: ENOXAPARIN 40 MG/0.4 ML SYRINGE SUBQ SCH (08:39)
[2023-08-01] MEDS ORDERED: NON FORMULARY MED (Cranberry Fruit Extract [Cranberry] 500 MG Tablet) PO SCH (09:00)
[2023-08-01] MEDS ORDERED: MIN OIL/DIMETHICON/COCONUT OIL 92 GM TUBE TOP PRN (09:12)
--- NOTE | 2023-08-01 09:16 | PROVIDER PROGRESS NOTE ---
Assessment/Plan - Problem List (1) Sepsis secondary to UTI Assessment/Plan: --Continue on IV ceftriaxone. --Currently in IV fluids due to hypotension. We did discuss the initiation of pressors as her MAP has been under 65. She is undecided. Given she is otherwise hemodynamically stable without symptoms, I will hold off on placing a central line. Patient does have a severely reduced EF per her recollection of her last TTE in February 2023. Will be very cautious about how much fluid we give her. --Blood and urine cultures are pending. --Viral PCR negative --Holding all home hypertensives. --Lactic acidosis resolved. --Monitor in the ICU, however if she is adamant she does not want pressors, will consider transferring her to the floor over next 24 hours. 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 Will obtain a repeat today as she has been on GDMT. --Cautious with fluids. --Holding her home antihypertensives for now. (3) Moderate COPD (chronic obstructive pulmonary disease) Assessment/Plan: --Chronically on 2L via NC. Does not appear to be in an acute exacerbation. --Continue home nebulizers. (4) CAD S/P percutaneous coronary angioplasty Assessment/Plan: --Continue DAPT, atorvastatin. Holding metoprolol. --No anginal symptoms. --TTE ordered. (5) Depression Qualifiers: (6) HTN (hypertension) Assessment/Plan: --Holding all antihypertensives due to concern for septic shock. (7) Morbid obesity with BMI of 45.0-49.9, adult Assessment/Plan: --Resides at [facility]. (8) Type 2 diabetes mellitus Assessment/Plan: --Last A1c 6.1 in June. Continue SSI. - Current Meds Current Meds: Current Medications Generic Name Dose Route Start Last Admin Trade Name Lee PRN Reason Stop Dose Admin Alcohol 1 amp 08/01/23 09:00 08/01/23 08:11 Ethyl Alcohol 62% Swab Ampule TEA 1 amp BID BETTYE Administration Aspirin 81 mg 08/01/23 09:00 08/01/23 08:10 Aspirin Ec 81 Mg Tablet PO 81 mg DAILY BETTYE Administration Atorvastatin Calcium 40 mg 07/31/23 21:00 07/31/23 22:28 Atorvastatin 40 Mg Tablet PO 40 mg QPM BETTYE Administration Calcium Carbonate/Glycine 1,250 mg 08/01/23 06:00 08/01/23 06:29 Calcium Carbonate Chew 500 Mg Tablet PO 08/01/23 10:01 1,250 mg Q4H BETTYE Administration Protocol Clopidogrel Bisulfate 75 mg 08/01/23 09:00 08/01/23 08:10 Clopidogrel 75 Mg Tablet PO 75 mg DAILY BETTYE Administration Cyanocobalamin 500 mcg 08/01/23 09:00 08/01/23 08:10 Cyanocobalamin 500 Mcg Tablet PO 500 mcg DAILY BETTYE Administration Enoxaparin Sodium 40 mg 08/01/23 09:00 08/01/23 08:39 Enoxaparin 40 Mg/0.4 Ml Syringe SUBQ 40 mg DAILY BETTYE Administration Insulin Human Lispro 0 unit 08/01/23 08:00 08/01/23 07:36 Insulin Lispro 300 Unit/3 Ml Pen SUBQ Not Given 0800,1200,1600,2100 [facility] Protocol Pantoprazole Sodium 40 mg 08/01/23 07:00 08/01/23 06:29 Pantoprazole 40 Mg Tablet PO 40 mg QDAC BETTYE Administration Sertraline HCl 75 mg 08/01/23 09:00 08/01/23 08:10 Sertraline 50 Mg Tablet PO 75 mg DAILY BETTYE Administration Sodium Chloride 10 ml 08/01/23 01:00 08/01/23 08:11 Sodium Chloride Flush 0.9% 10 Ml Syringe IVP 10 ml 0100,0900,1700 BETTYE Administration - Lab Result Fish Bone Diagrams: 08/01/23 04:18 08/01/23 04:18 - Additional Planning My Orders: My Active Orders 08/01/23 09:01 Zinc Oxide [Stefan Protect] 1 applic TOP PRN PRN 08/01/23 21:00 cefTRIAXone [Rocephin] 2 gm Sodium Chloride 0.9% Minibag [Normal Saline 0.9% Minibag] 100 ml IV Q24H Subjective - Subjective Patient Reports: Resting Comfortably, No Complaints, Other (Denies any acute complaints this morning. We discussed her MAP which is low. States she always runs a little low at [place]. Was undecided on whether she would like pressors. Did not want a centeral line right now. Was educated on the risks and benefits. No fevers or chills.) Objective Vital Signs: Vital Signs - 24 hr 07/31/23 07/31/23 07/31/23 18:41 19:30 20:00 Temperature 36.6 C Heart Rate 104 H 80 72 Heart Rate [ Monitoring electrodes] Respiratory 28 H 18 20 Rate Blood Pressure 93/57 L 74/44 L 87/47 L Blood Pressure [Left Brachial artery] O2 Saturation 92 95 97 If not protocol 2 2 : Oxygen Flow, liters/minute 07/31/23 07/31/23 07/31/23 20:30 22:00 22:41 Temperature 36.4 C L Heart Rate 69 Heart Rate [ 60 Monitoring electrodes] Respiratory 20 15 Rate Blood Pressure 88/56 L Blood Pressure 99/45 L [Left Brachial artery] O2 Saturation 96 100 If not protocol 2 2 2 : Oxygen Flow, liters/minute 07/31/23 07/31/23 08/01/23 23:00 23:25 00:00 Temperature 36.4 C L 97.8 C H Heart Rate Heart Rate [ 60 57 L Monitoring electrodes] Respiratory 17 18 Rate Blood Pressure Blood Pressure 119/52 L 94/47 L [Left Brachial artery] O2 Saturation 99 97 If not protocol 2 2 2 : Oxygen Flow, liters/minute 08/01/23 08/01/23 08/01/23 01:00 02:00 03:00 Temperature 97.5 C H 96.2 C H Heart Rate Heart Rate [ 55 L 54 L 55 L Monitoring electrodes] Respiratory 16 17 16 Rate Blood Pressure Blood Pressure 96/38 L 94/36 L 96/35 L [Left Brachial artery] O2 Saturation 95 99 99 If not protocol 2 2 2 : Oxygen Flow, liters/minute 08/01/23 08/01/23 08/01/23 04:00 05:00 06:00 Temperature 36.8 C 36.5 C 36.6 C Heart Rate Heart Rate [ 55 L 58 L 57 L Monitoring electrodes] Respiratory 17 17 16 Rate Blood Pressure Blood Pressure 95/39 L 111/44 L 85/36 L [Left Brachial artery] O2 Saturation 99 100 99 If not protocol 2 2 2 : Oxygen Flow, liters/minute 08/01/23 08/01/23 08/01/23 07:00 08:00 09:00 Temperature 36.5 C 36.8 C Heart Rate Heart Rate [ 58 L 62 62 Monitoring electrodes] Respiratory 17 30 H 21 Rate Blood Pressure Blood Pressure 93/37 L 114/97 H 106/56 L [Left Brachial artery] O2 Saturation 98 99 97 If not protocol 2 2 2 : Oxygen Flow, liters/minute Oxygen O2 Source [Without Activity] Nasal cannula O2 Source [With Activity] Nasal cannula O2 Source Nasal cannula I&O (Last 24 Hrs): Intake and Output Totals x24h 07/30/23 07/31/23 08/01/23 23:59 23:59 23:59 Intake Total 19995 Output Total 150 621 Balance 1850 2294 General: Alert, Oriented x3, Cooperative, No acute distress Cardiovascular: Regular rate, Normal S1, Normal S2, No murmurs Respiratory: Chest non-tender, No respiratory distress, Breath sounds nml Abdomen: Normal bowel sounds, Soft, No tenderness, No hepatospenomegaly, No masses Extremities: No edema - Results Results: Laboratory Results WBC 10.8 x10^3/uL (4.8-10.8) 08/01/23 04:18 RBC 4.58 10^6/uL (4.20-5.40) 08/01/23 04:18 Hgb 11.1 g/dL (12.0-16.0) L 08/01/23 04:18 Hct 38.8 % (37.0-47.0) 08/01/23 04:18 MCV 84.7 fL (81.0-99.0) 08/01/23 04:18 MCH 24.2 pg (27.0-31.0) L 08/01/23 04:18 MCHC 28.6 g/dL (32.0-36.0) L 08/01/23 04:18 RDW 16.2 % (12.0-15.0) H 08/01/23 04:18 Plt Count 376 10^3/uL (130-450) 08/01/23 04:18 MPV 10.0 fL (7.9-10.8) 08/01/23 04:18 Neut # (Auto) 7.7 10^3/uL (1.5-6.6) H 08/01/23 04:18 Lymph # (Auto) 2.0 10^3/uL (1.5-3.5) 08/01/23 04:18 [place] # (Auto) 0.9 10^3/uL (0.0-1.0) 08/01/23 04:18 Eos # (Auto) 0.2 10^3/uL (0.0-0.7) 08/01/23 04:18 Baso # (Auto) 0.1 10^3/uL (0.0-0.1) 08/01/23 04:18 Absolute Nucleated RBC 0.00 x10^3/uL 08/01/23 04:18 Nucleated RBC % 0.0 /100WBC 08/01/23 04:18 PT 13.2 secs (9.9-12.6) H 07/31/23 19:10 INR 1.2 (0.8-1.2) 07/31/23 19:10 APTT 32.9 secs (24.9-33.3) 07/31/23 19:10 VBG pH 7.362 (7.31-7.41) 08/01/23 04:18 Ionized Calcium 1.10 mmol/L (1.15-1.33) L 08/01/23 04:18 Sodium 137 mmol/L (135-145) 08/01/23 04:18 Potassium 3.6 mmol/L (3.5-4.5) 08/01/23 04:18 Chloride 105 mmol/L (101-111) 08/01/23 04:18 Carbon Dioxide 26 mmol/L (21-32) 08/01/23 04:18 Anion Gap 6.0 (6-13) 08/01/23 04:18 BUN 17 mg/dL (6-20) 08/01/23 04:18 Creatinine 0.9 mg/dL (0.6-1.3) 08/01/23 04:18 Estimated GFR (MDRD) 61 (>89) L 08/01/23 04:18 Glucose 103 mg/dL (74-104) 08/01/23 04:18 POC Whole Bld Glucose 90 mg/dL (70 - 100) 08/01/23 07:36 Lactic Acid 0.8 mmol/L (0.5-2.2) 08/01/23 04:18 Calcium 8.6 mg/dL (8.5-10.3) 08/01/23 04:18 Phosphorus 3.4 mg/dL (2.5-5.0) 08/01/23 04:18 Magnesium 1.6 mg/dL (1.7-2.3) L 08/01/23 04:18 Total Bilirubin 0.4 mg/dL (0.2-1.0) 07/31/23 19:10 AST 16 IU/L (10-42) 07/31/23 19:10 ALT 16 IU/L (10-60) 07/31/23 19:10 Alkaline Phosphatase 100 IU/L (42-121) 07/31/23 19:10 Total Protein 7.6 g/dL (6.4-8.9) 07/31/23 19:10 Albumin 4.0 g/dL (3.2-5.5) 07/31/23 19:10 Globulin 3.6 g/dL (2.1-4.2) 07/31/23 19:10 Albumin/Globulin Ratio 1.1 (1.0-2.2) 07/31/23 19:10 Lipase 10 U/L (11-82) L 07/31/23 19:10 Vitamin B12 481 pg/mL (180-914) 08/01/23 04:18 Urine Color YELLOW 07/31/23 18:54 Urine Clarity HAZY (CLEAR) 07/31/23 18:54 Urine pH 6.0 PH (5.0-7.5) 07/31/23 18:54 Ur Specific [place] 1.010 (1.002-1.030) 07/31/23 18:54 Urine Protein NEGATIVE mg/dL (NEGATIVE) 07/31/23 18:54 Urine Glucose (UA) NEGATIVE mg/dL (NEGATIVE) 07/31/23 18:54 Urine Ketones NEGATIVE mg/dL (NEGATIVE) 07/31/23 18:54 Urine Occult Blood MODERATE (NEGATIVE) H 07/31/23 18:54 Urine Nitrite NEGATIVE (NEGATIVE) 07/31/23 18:54 Urine Bilirubin NEGATIVE (NEGATIVE) 07/31/23 18:54 Urine Urobilinogen 0.2 (NORMAL) E.U./dL (NORMAL) 07/31/23 18:54 Ur Leukocyte Esterase LARGE (NEGATIVE) H 07/31/23 18:54 Urine RBC 11-25 /HPF (0-5) H 04/21/24 18:54 Urine WBC >25 /HPF (0-5) H 07/31/23 18:54 Ur Squamous Epith Cells RARE Squamous (<= Few) 07/31/23 18:54 Urine Bacteria Rare /HPF (None Seen) 07/31/23 18:54 Ur Microscopic Review INDICATED 07/31/23 18:54 Urine Culture Comments INDICATED 07/31/23 18:54 Nasal Adenovirus (PCR) NOT DETECTED 07/31/23 20:26 Nasal B. parapertussis DNA (PCR) NOT DETECTED 07/31/23 20:26 Nasal Coronavir 229E PCR NOT DETECTED 07/31/23 20:26 Nasal Coronavir HKU1 PCR NOT DETECTED 07/31/23 20:26 Nasal Coronavir NL63 PCR NOT DETECTED 07/31/23 20:26 Nasal Coronavir OC43 PCR NOT DETECTED 07/31/23 20:26 Nasal Enterovir/Rhinovir PCR NOT DETECTED 07/31/23 20:26 Nasal Influenza B PCR NOT DETECTED 07/31/23 20:26 Nasal Influenza A PCR NOT DETECTED 07/31/23 20:26 Nasal Parainfluen 1 PCR NOT DETECTED 07/31/23 20:26 Nasal Parainfluen 2 PCR NOT DETECTED 07/31/23 20:26 Nasal Parainfluen 3 PCR NOT DETECTED 07/31/23 20:26 Nasal Parainfluen 4 PCR NOT DETECTED 07/31/23 20:26 Nasal RSV (PCR) NOT DETECTED 07/31/23 20:26 Nasal Screen MRSA (PCR) POSITIVE (NEGATIVE) A* 07/31/23 22:18 Nasal B.pertussis DNA PCR NOT DETECTED 07/31/23 20:26 Nasal C.pneumoniae (PCR) NOT DETECTED 07/31/23 20:26 Tea Human Metapneumo PCR NOT DETECTED 07/31/23 20:26 Nasal M.pneumoniae (PCR) NOT DETECTED 07/31/23 20:26 Nasal SARS-CoV-2 (PCR) NOT DETECTED 07/31/23 20:26 Sepsis Event Note (H) - Evaluation Possible source of Sepsis: positive: Genitourinary - Sepsis Criteria Sepsis Criteria: WBC count greater than 12,000 or less than 4000, SBP less than 90 mmHg, Metabolic: lactate > 2 mmol/L
[2023-08-01] MEDS: NYSTATIN POWDER 15 GM TOP PRN (09:38)
[2023-08-01] MEDS: ZINC OXIDE 12% OINT 57 GM TUBE TOP PRN (09:38)
[2023-08-01] MEDS: LOPERAMIDE 2 MG CAPSULE PO PRN (10:10)
[2023-08-01 10:12] LABS: ESTIMATED AVERAGE GLUCOSE 120 mg/dL (70-100); HEMOGLOBIN A1c% 5.8 % (4.27-6.07)
--- NOTE | 2023-08-01 10:21 | PHARMACY PROGRESS NOTE ---
- Best Possible Medication History Admit Date and Time: 07/31/232056 Processed by: Pharmacy Medications reviewed in ED?: Yes Medication History completed: Yes Patient Interview: Completed Secondary Source(s): Written medication list, Insurance records, Facility MAR as ONLY source As the person ultimately responsible for medication therapy, providers are able to order a medication from an existing home medication list in [facility] via the "Reconcile Routine" prior to Confirmation of that medication by production support consultant. Such practice is discouraged except when the physician, in their clinical judgment, deems that a medical need exists for a medication without regard to previous use.
[2023-08-01] MEDS: LACTOBACILLUS RHAMNOSUS GG CAPSULE PO SCH (14:13)
[2023-08-01 14:15] LABS: CALCIUM, IONIZED 1.14 mmol/L (1.15-1.33); VBG PH 7.306 (7.31-7.41)
[2023-08-01 14:22] LABS: MAGNESIUM 1.6 mg/dL (1.7-2.3); POTASSIUM 3.8 mmol/L (3.5-4.5)
[2023-08-01] MEDS: MAGNESIUM SULFATE 2 GRAM 2 GM/50 ML BAG IV ONE (15:08)
[2023-08-01] MEDS ORDERED: SODIUM CHLORIDE 0.9% MINIBAG 100 ML IV ONE (20:30)
[2023-08-01] MEDS: cefTRIAXone 2 GM in SODIUM CHLORIDE 0.9% MINIBAG 100 ML IV SCH (20:35)
[2023-08-01] MEDS: SODIUM CHLORIDE FLUSH 0.9% 10 ML SYRINGE IVP PRN (20:36)
[2023-08-01 20:50] LABS: MAGNESIUM 2.2 mg/dL (1.7-2.3); POTASSIUM 4.3 mmol/L (3.5-4.5)
[2023-08-01] MEDS ORDERED: cefTRIAXone 1 GM in SODIUM CHLORIDE 0.9% MINIBAG 100 ML IV SCH (21:00)
[2023-08-01] MEDS: BENZOCAINE/MENTHOL LOZENGE MM PRN (22:28)
[2023-08-02 05:52] LABS: BASOPHILS # (AUTO) 0.1 10^3/uL (0.0-0.1); BASOPHILS % (AUTO) 0.4 %; EOSINOPHILS # (AUTO) 0.5 10^3/uL (0.0-0.7); EOSINOPHILS % (AUTO) 4.6 %; HCT - HEMATOCRIT 33.6 % (37.0-47.0); HGB - HEMOGLOBIN 10.1 g/dL (12.0-16.0); MEAN CORPUSCULAR HEMOGLOBIN 25.1 pg (27.0-31.0); MEAN CORPUSCULAR HGB CONC 30.1 g/dL (32.0-36.0); MEAN CORPUSCULAR VOLUME 83.4 fL (81.0-99.0); MEAN PLATELET VOLUME 10.2 fL (7.9-10.8); MONOCYTES # (AUTO) 0.7 10^3/uL (0.0-1.0); NEUTROPHILS # (AUTO) 8.4 10^3/uL (1.5-6.6); NEUTROPHILS % (AUTO) 71.7 %; PLT - PLATELET COUNT 380 10^3/uL (130-450); RED BLOOD COUNT 4.03 10^6/uL (4.20-5.40); RED CELL DISTRIBUTION WIDTH 16.4 % (12.0-15.0); WHITE BLOOD COUNT 11.7 x10^3/uL (4.8-10.8)
[2023-08-02 05:56] LABS: CALCIUM, IONIZED 1.09 mmol/L (1.15-1.33); VBG PH 7.402 (7.31-7.41)
[2023-08-02 06:07] LABS: CALCIUM 8.7 mg/dL (8.5-10.3); CREATININE 0.8 mg/dL (0.6-1.3); MAGNESIUM 2.1 mg/dL (1.7-2.3); PHOSPHORUS 2.9 mg/dL (2.5-5.0); POTASSIUM 4.2 mmol/L (3.5-4.5)
[2023-08-02] MEDS: CALCIUM CARBONATE CHEW 500 MG TABLET PO SCH ×2 (06:46→17:28)
[2023-08-02] MEDS ORDERED: iohexoL-300 100 ML VIAL ONE (10:53)
[2023-08-02] MEDS: iohexoL-300 100 ML VIAL IVP ONE (11:48)
[2023-08-02] MEDS: IPRATROPIUM/ALBUTEROL 3 ML NEB INH PRN (12:46)
--- NOTE | 2023-08-02 13:03 | CT Report ---
PROCEDURE: CT abdomen and pelvis with contrast INDICATIONS: urosepsis TECHNIQUE: Helical axial CT of the abdomen and pelvis was obtained after intravenous contrast adminis tration and reformatted in multiple planes. Radiation dose reduction was achieved using automated exp osure control or adjustment of mA and/or kV according to patient size. COMPARISON: None FINDINGS: Lower thorax: Small left pleural effusion bibasilar atelectasis Moderaterhiatal hernia. Liver: Normal in size and attenuation. No contour deformity present. Biliary system: Cholecystectomy Pancreas: Unremarkable without mass or inflammation evident. Spleen: Normal in size and density. Adrenals: Low-density left adrenal nodule measures 2.2 cm, likely adenoma Reproductive system: As below. Retroverted. Urinary system: Normal renal size and attenuation. No renal calculi, hydronephrosis, or solid mass p resent. Mason catheter in bladder. Air in the bladder related to recent instrumentation. Gastrointestinal system: Multiple diverticuli arise from the sigmoid colon with focal inflammatory c hange and wall thickening in the mid sigmoid which is contiguous with the retroverted uterine fundus. No obstruction or free air present. Peritoneal spaces: No mesenteric or retroperitoneal adenopathy. No free air. No free fluid. Vasculature: The IVC, aorta and iliac vasculature are unremarkable. Abdominal wall: Abdominal wall is intact without evidence of ventral or inguinal hernias. Musculoskeletal: Normal bone mineralization. No acute fractures. Degenerative disc disease and arth ropathy in the lumbar spine IMPRESSION: Mid sigmoid acute diverticulitis without evidence of free air or abscess. Of note, inflamed sigmoid i s contiguous with the uterine fundus Low-density left adrenal nodule, likely adenoma. Reviewed by: Jaren Rausch MD on 08/02/2023 12:02 PM LYLE Approved by: Jaren Rausch MD on 08/02/2023 12:02 PM AKTUAN Station ID: [id number]
--- NOTE | 2023-08-02 17:08 | PROVIDER PROGRESS NOTE ---
Subjective - Prog Note Date Prog Note Date: 08/02/23 Prog Note Time: 17:05 - Subjective Pt reports feeling: Improved Subjective: Playing [employer] on her iPad. She shows me where she has multiple games, and loves to play Wellkeeper. Is really gotten up out of bed for over 2 months. She used to walk with a walker but shingles took her down 2 months ago. She has not quite recovered with ambulation and endurance. Current Medications - Current Medications Current Medications: Active Medications Acetaminophen (Acetaminophen 325 Mg Tablet) 650 mg PO Q4HR PRN PRN Reason: Pain 1 to 4, or Fever Albuterol (Albuterol Neb 2.5 Mg/3 Ml) 2.5 mg INH RTQID PRN PRN Reason: Shortness of Air/Wheezing Albuterol/Ipratropium (Ipratropium/Albuterol 3 Ml Neb) 3 ml INH Q6H PRN PRN Reason: Wheezing Last Admin: 08/02/23 12:46 Dose: 3 ml Alcohol (Ethyl Alcohol 62% Swab Ampule) 1 amp TEA BID [facility] Last Admin: 08/02/23 08:27 Dose: 1 amp Aspirin (Aspirin Ec 81 Mg Tablet) 81 mg PO DAILY [facility] Last Admin: 08/02/23 08:27 Dose: 81 mg Atorvastatin Calcium (Atorvastatin 40 Mg Tablet) 40 mg PO QPM [facility] Last Admin: 08/01/23 20:36 Dose: 40 mg Bisacodyl (Bisacodyl 10 Mg Supp) 10 mg [place] DAILY PRN PRN Reason: Constipation Calcium Carbonate/Glycine (Calcium Carbonate Chew 500 Mg Tablet) 500 mg PO BID PRN PRN Reason: INDIGESTION Calcium Carbonate/Glycine (Calcium Carbonate Chew 500 Mg Tablet) 1,250 mg PO Q4H [facility]; Protocol Stop: 08/02/23 22:01 Last Admin: 08/02/23 17:28 Dose: 1,250 mg Clopidogrel Bisulfate (Clopidogrel 75 Mg Tablet) 75 mg PO DAILY [facility] Last Admin: 08/02/23 08:27 Dose: 75 mg Cyanocobalamin (Cyanocobalamin 500 Mcg Tablet) 500 mcg PO DAILY [facility] Last Admin: 08/02/23 08:27 Dose: 500 mcg Diclofenac Sodium (Diclofenac Sodium 1% Gel 50 Gm Tube) 4 gm TOP DAILY PRN PRN Reason: ITCHING Enoxaparin Sodium (Enoxaparin 40 Mg/0.4 Ml Syringe) 40 mg SUBQ DAILY [facility] Last Admin: 08/02/23 08:26 Dose: 40 mg Famotidine (Famotidine 20 Mg Tablet) 20 mg PO TID PRN PRN Reason: Heartburn Ceftriaxone Sodium 2 gm/ (Sodium Chloride) 100 mls @ 200 mls/hr IV Q24H [facility] Last Infusion: 08/01/23 21:26 Dose: Infused Insulin Human Lispro (Insulin Lispro 300 Unit/3 Ml Pen) 0 unit SUBQ 0800,1200,1600,2100 [facility]; Protocol Last Admin: 08/02/23 16:38 Dose: Not Given Lactobacillus Rhamnosus (Lactobacillus Rhamnosus Gg Capsule) 1 cap PO DAILY [facility] Last Admin: 08/02/23 08:27 Dose: 1 cap Lidocaine (Lidocaine Patch 5%) 1 patch TOP DAILY PRN PRN Reason: PAIN 1-4 Loperamide HCl (Loperamide 2 Mg Capsule) 2 mg PO QID PRN PRN Reason: Diarrhea Last Admin: 08/01/23 10:10 Dose: 2 mg Multi-Ingredient Ointment (Zinc Oxide 12% Oint 57 Gm Tube) 1 applic TOP PRN PRN PRN Reason: Skin Care Last Admin: 08/02/23 16:04 Dose: 1 applic Nitroglycerin (Nitroglycerin Sl 0.4 Mg Tablet) 0.4 mg SL Q5M PRN PRN Reason: Chest Pain Nystatin (Nystatin Powder 15 Gm) 15 applic TOP BID PRN PRN Reason: inna intertrigo Last Admin: 08/01/23 09:38 Dose: 3 applic Ondansetron HCl (Ondansetron Odt 4 Mg Tablet) 4 mg TL Q6HR PRN PRN Reason: Nausea / Vomiting Ondansetron HCl (Ondansetron 4 Mg/2 Ml Vial) 4 mg IVP Q6HR PRN PRN Reason: Nausea / Vomiting Pantoprazole Sodium (Pantoprazole 40 Mg Tablet) 40 mg PO QDAC [facility] Last Admin: 08/02/23 06:46 Dose: 40 mg Senna (Senna 8.6 Mg Tablet) 17.2 mg PO DAILY PRN PRN Reason: Constipation Sertraline HCl (Sertraline 50 Mg Tablet) 75 mg PO DAILY [facility] Last Admin: 08/02/23 08:27 Dose: 75 mg Sodium Chloride (Sodium Chloride 1 Gm Tablet) 1 gm PO OAW BETTYE Sodium Chloride (Sodium Chloride Flush 0.9% 10 Ml Syringe) 10 ml IVP 0100,0900,1700 BETTYE Last Admin: 08/02/23 16:04 Dose: 10 ml Sodium Chloride (Sodium Chloride Flush 0.9% 10 Ml Syringe) 10 ml IVP PRN PRN PRN Reason: NEEDED PER PROVIDER ORDERS Last Admin: 08/01/23 20:36 Dose: 10 ml Throat Lozenges (Benzocaine/Menthol Lozenge) 1 lozenge MM Q2HR PRN PRN Reason: Throat pain Last Admin: 08/01/23 22:28 Dose: 1 lozenge Nitroglycerin 0.4 mg SL Q5M PRN 06/22/19 Albuterol Sulf [Ventolin Hfa Inhaler] 2 puffs PO QID PRN 06/28/22 Bisacodyl Supp [Dulcolax Supp] 10 mg RC DAILY PRN 07/31/23 Cranberry Fruit Extract [Cranberry] 2,000 mg PO DAILY 07/31/23 Diclofenac Sodium 1% Gel [Voltaren Gel] 1 applic TOP DAILY PRN 07/31/23 Famotidine [Pepcid] 20 mg PO QDBREAKFAST PRN 07/31/23 Ipratropium/Albuterol [Duoneb] 3 ml NEB Q6H PRN 07/31/23 Lidocaine Patch 4% [Lidocaine Pain Relief] 1 patch TOP DAILY PRN 07/31/23 Mag Hydrox/Aluminum Hyd/Simeth [Alum-Mag Hydroxide-Simeth Cup] 30 ml PO Q4H PRN 07/31/23 Metoprolol Succinate [Toprol Xl] 12.5 mg PO DAILY 07/31/23 Pantoprazole Sodium [Protonix] 20 mg PO DAILY 07/31/23 Potassium Chloride 10 meq PO DAILY 07/31/23 Sacubitril/Valsartan [Entresto 24 mg-26 mg Tablet] 1 tab PO BID 07/31/23 Senna [Senokot] 17.2 mg PO DAILY PRN 07/31/23 Sertraline [Zoloft] 75 mg PO DAILY 07/31/23 Sodium Chloride [Salt Tab] 1 tab PO OAW 07/31/23 diphenhydrAMINE [Benadryl] 25 mg PO BID PRN 07/31/23 Calcium Carbonate [Tums (Calcium Carbonate 500mg)] 1,000 mg PO Q8H PRN 08/01/23 Furosemide [Lasix] 40 mg PO DAILY 08/01/23 Nystatin [Klayesta] 1 appful TOP PRN PRN 08/01/23 ONDANSETRON ODT Prepack 2 [ZOFRAN ODT] 4 mg PO Q6H PRN 08/01/23 glipiZIDE [Glucotrol] 5 mg PO QDBREAKFAST 08/01/23 polyethylene glycoL 3350 [Miralax] 17 g PO DAILY PRN 08/01/23 Objective - Vital Signs/Intake & Output Reviewed Vital Signs: Yes Vital Signs: Vital Signs x48h Temp Pulse Pulse Pulse Pulse Pulse Resp 08/02/23 17:00 71 29 H 08/02/23 16:00 36.3 C L 67 24 08/02/23 15:00 67 23 08/02/23 14:00 70 84 94 66 24 08/02/23 13:57 84 94 66 08/02/23 13:00 36.8 C 93 15 08/02/23 12:49 64 16 08/02/23 12:45 08/02/23 12:00 70 23 08/02/23 11:00 65 16 08/02/23 10:00 68 18 BP BP BP BP BP Pulse Ox Pulse Ox 08/02/23 17:00 128/53 L 94 08/02/23 16:00 120/61 97 08/02/23 15:00 124/87 H 96 08/02/23 14:00 123/51 L 156/58 H 160/64 H 123/51 L 97 08/02/23 13:57 156/58 H 160/64 H 123/51 L 92 08/02/23 13:00 116/63 93 08/02/23 12:49 08/02/23 12:45 08/02/23 12:00 132/62 H 96 08/02/23 11:00 118/64 97 08/02/23 10:00 117/52 L 96 Pulse Ox Pulse Ox O2 Flow Rate 08/02/23 17:00 2 08/02/23 16:00 2 08/02/23 15:00 2 08/02/23 14:00 2 08/02/23 13:57 91 L 97 08/02/23 13:00 2 08/02/23 12:49 1 08/02/23 12:45 1 08/02/23 12:00 2 08/02/23 11:00 2 08/02/23 10:00 2 Intake & Output: Intake & Output 07/30/23 07/31/23 08/01/23 08/02/23 23:59 23:59 23:59 23:59 Intake Total 1999 4492 1203 Output Total 150 1646 1456 Balance 1850 0718 -109 - Objective General Appearance: positive: No acute distress, Alert, Other ( Pleasant morbidly obese female, no acute distress) Eyes Bilateral: positive: PERRL, EOMI ENT: positive: No signs of dehydration Neck: positive: No JVD. negative: Stiff neck Respiratory: positive: No respiratory distress, Other ( managed at bases, unlabored respiration and able to have a full conversation without difficulty). negative: Wheezes, Rales, Rhonchi Cardiovascular: positive: Regular rate & rhythm Abdomen: positive: Non-tender, No organomegaly, Nml bowel sounds, No distention Skin: positive: Warm, Dry Extremities: positive: Full ROM, No pedal edema Neurologic/Psychiatric: positive: Oriented x3, CN's nml (2-12). negative: Motor nml ( diffuse generalized weakness. Needs max assist to be able to go from supine to sitting into standing) - Lab Results Fish Bones: 08/02/23 04:20 08/02/23 04:20 Other Labs: Lab Results x24hrs 08/02/23 08/02/23 08/02/23 Range/Units 16:36 11:56 07:26 WBC (4.8-10.8) x10^3/uL RBC (4.20-5.40) 10^6/uL Hgb (12.0-16.0) g/dL Hct (37.0-47.0) % MCV (81.0-99.0) fL MCH (27.0-31.0) pg MCHC (32.0-36.0) g/dL RDW (12.0-15.0) % Plt Count (130-450) 10^3/uL MPV (7.9-10.8) fL Neut # (Auto) (1.5-6.6) 10^3/uL Lymph # (Auto) (1.5-3.5) 10^3/uL [place] # (Auto) (0.0-1.0) 10^3/uL Eos # (Auto) (0.0-0.7) 10^3/uL Baso # (Auto) (0.0-0.1) 10^3/uL Absolute Nucleated RBC x10^3/uL Nucleated RBC % /100WBC VBG pH (7.31-7.41) Ionized Calcium (1.15-1.33) mmol/L Sodium (135-145) mmol/L Potassium (3.5-4.5) mmol/L Chloride (101-111) mmol/L Carbon Dioxide (21-32) mmol/L Anion Gap (6-13) BUN (6-20) mg/dL Creatinine (0.6-1.3) mg/dL Estimated GFR (MDRD) (>89) Glucose (74-104) mg/dL POC Whole Bld Glucose 110 H 137 H 102 H (70 - 100) mg/dL Calcium (8.5-10.3) mg/dL Phosphorus (2.5-5.0) mg/dL Magnesium (1.7-2.3) mg/dL 08/02/23 08/02/23 08/02/23 Range/Units 04:20 04:20 04:20 WBC 11.7 H (4.8-10.8) x10^3/uL RBC 4.03 L (4.20-5.40) 10^6/uL Hgb 10.1 L (12.0-16.0) g/dL Hct 33.6 L (37.0-47.0) % MCV 83.4 (81.0-99.0) fL MCH 25.1 L (27.0-31.0) pg MCHC 30.1 L (32.0-36.0) g/dL RDW 16.4 H (12.0-15.0) % Plt Count 380 (130-450) 10^3/uL MPV 10.2 (7.9-10.8) fL Neut # (Auto) 8.4 H (1.5-6.6) 10^3/uL Lymph # (Auto) 2.0 (1.5-3.5) 10^3/uL [place] # (Auto) 0.7 (0.0-1.0) 10^3/uL Eos # (Auto) 0.5 (0.0-0.7) 10^3/uL Baso # (Auto) 0.1 (0.0-0.1) 10^3/uL Absolute Nucleated RBC 0.00 x10^3/uL Nucleated RBC % 0.0 /100WBC VBG pH 7.402 (7.31-7.41) Ionized Calcium 1.09 L (1.15-1.33) mmol/L Sodium 136 (135-145) mmol/L Potassium 4.2 (3.5-4.5) mmol/L Chloride 105 (101-111) mmol/L Carbon Dioxide 24 (21-32) mmol/L Anion Gap 7.0 (6-13) BUN 9 (6-20) mg/dL Creatinine 0.8 (0.6-1.3) mg/dL Estimated GFR (MDRD) 70 L (>89) Glucose 96 (74-104) mg/dL POC Whole Bld Glucose (70 - 100) mg/dL Calcium 8.7 (8.5-10.3) mg/dL Phosphorus 2.9 (2.5-5.0) mg/dL Magnesium 2.1 (1.7-2.3) mg/dL 08/01/23 08/01/23 Range/Units 20:36 20:32 WBC (4.8-10.8) x10^3/uL RBC (4.20-5.40) 10^6/uL Hgb (12.0-16.0) g/dL Hct (37.0-47.0) % MCV (81.0-99.0) fL MCH (27.0-31.0) pg MCHC (32.0-36.0) g/dL RDW (12.0-15.0) % Plt Count (130-450) 10^3/uL MPV (7.9-10.8) fL Neut # (Auto) (1.5-6.6) 10^3/uL Lymph # (Auto) (1.5-3.5) 10^3/uL [place] # (Auto) (0.0-1.0) 10^3/uL Eos # (Auto) (0.0-0.7) 10^3/uL Baso # (Auto) (0.0-0.1) 10^3/uL Absolute Nucleated RBC x10^3/uL Nucleated RBC % /100WBC VBG pH (7.31-7.41) Ionized Calcium (1.15-1.33) mmol/L Sodium (135-145) mmol/L Potassium 4.3 (3.5-4.5) mmol/L Chloride (101-111) mmol/L Carbon Dioxide (21-32) mmol/L Anion Gap (6-13) BUN (6-20) mg/dL Creatinine (0.6-1.3) mg/dL Estimated GFR (MDRD) (>89) Glucose (74-104) mg/dL POC Whole Bld Glucose 137 H (70 - 100) mg/dL Calcium (8.5-10.3) mg/dL Phosphorus (2.5-5.0) mg/dL Magnesium 2.2 (1.7-2.3) mg/dL ABX Reporting Has patient been on IV antibiotics over the past 48 hours?: Yes Sepsis Event Note (H) - Evaluation Possible source of Sepsis: positive: Genitourinary - Sepsis Criteria Sepsis Criteria: WBC count greater than 12,000 or less than 4000, SBP less than 90 mmHg, Metabolic: lactate > 2 mmol/L Assessment/Plan - Problem List (1) Sepsis secondary to UTI Impression: ----All blood and urine cultures are without growth; viral PCR negative; Lactic acid has resolved and WBC has gone from 14>11. I will continue on IV ceftriaxone since she is responding and her symptoms were of bladder spasms. Today is day #3/7. --The previous hospitalist did discuss the initiation of pressors because her mean arterial pressure was under 65 but she was not willing to get a central line. She was otherwise hemodynamically stable. Patient does have a severely reduced EF per her recollection of her last TTE in February 2023. --because the source of her symtoms seems to be bladder, I will order CT of abd and pelvis with contrast. Transfer to Med Surg Status. (2) Heart failure with reduced ejection fraction Assessment/Plan: --Reports that she had a severely reduced LVEF on her last TTE 6 months ago at her [employer] office. Our Echo has doderately dilated LV size and moderately reduced systolic function with an ejection fraction of 30 to 35%. 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 Normal RV size and systolic function. Mild aortic valve. Last echo in February 2023 had ejection fraction of 25%. --She would like IVF stopped and asked to be IV locked. I agree with that since she is taking enough po. --Continue holding her home antihypertensives for now. --I will discuss POLST with her tomorrow. She is at risk for VT. I will ask if she has ever discussed AICD with cardiology. (3) Moderate COPD (chronic obstructive pulmonary disease) Assessment/Plan: --Chronically on 2L via NC. Does not appear to be in an acute exacerbation. --Continue home nebulizers. (4) CAD S/P percutaneous coronary angioplasty Assessment/Plan: --Continue DAPT, atorvastatin. Holding metoprolol. --No anginal symptoms. (5) Depression Qualifiers: (6) HTN (hypertension) Assessment/Plan: --Holding all antihypertensives due to concern for septic shock. (7) Morbid obesity with BMI of 45.0-49.9, adult Assessment/Plan: --Resides at [facility] due to need for help. In the last 2 months, no longer gets out of bed due to bought of shingles. Plan: PT and OT eval today. (8) Type 2 diabetes mellitus Assessment/Plan: --Last A1c 6.1 in June. Continue SSI.
[2023-08-02 17:14] LABS: CALCIUM, IONIZED 1.12 mmol/L (1.15-1.33); VBG PH 7.341 (7.31-7.41)
[2023-08-03 02:08] LABS: ADENOVIRUS F 40/41 Not Detected (Not Detected); ASTROVIRUS Not Detected (Not Detected); C DIFFICILE TOXIN A/B Not Detected (Not Detected); CAMPYLOBACTER Not Detected (Not Detected); CRYPTOSPORIDIUM Not Detected (Not Detected); CYCLOSPORA CAYETANENSIS Not Detected (Not Detected); ENTAMOEBA HISTOLYTICA Not Detected (Not Detected); ENTEROAGGREGATIVE E COLI Not Detected (Not Detected); ENTEROPATHOGENIC E COLI Not Detected (Not Detected); ENTEROTOXIGENIC E COLI Not Detected (Not Detected); GIARDIA LAMBLIA Not Detected (Not Detected); NOROVIRUS GI/GII Not Detected (Not Detected); PLESIOMONAS SHIGELLOIDES Not Detected (Not Detected); ROTAVIRUS A Not Detected (Not Detected); SALMONELLA Not Detected (Not Detected); SAPOVIRUS Not Detected (Not Detected); SHIGA-TOXIN-PRODUCING E COLI Not Detected (Not Detected); SHIGELLA/ENTEROINVASIVE E COLI Not Detected (Not Detected); VIBRIO Not Detected (Not Detected); VIBRIO CHOLERAE Not Detected (Not Detected); YERSINIA ENTEROCOLITICA Not Detected (Not Detected)
[2023-08-03 04:34] LABS: CALCIUM, IONIZED 1.12 mmol/L (1.15-1.33); VBG PH 7.408 (7.31-7.41)
[2023-08-03 04:36] LABS: BASOPHILS # (AUTO) 0.1 10^3/uL (0.0-0.1); BASOPHILS % (AUTO) 0.6 %; EOSINOPHILS # (AUTO) 0.7 10^3/uL (0.0-0.7); EOSINOPHILS % (AUTO) 6.3 %; HCT - HEMATOCRIT 35.5 % (37.0-47.0); HGB - HEMOGLOBIN 10.3 g/dL (12.0-16.0); LYMPHOCYTES # (AUTO) 1.5 10^3/uL (1.5-3.5); LYMPHOCYTES % (AUTO) 14.2 %; MEAN CORPUSCULAR HEMOGLOBIN 24.5 pg (27.0-31.0); MEAN CORPUSCULAR VOLUME 84.5 fL (81.0-99.0); MEAN PLATELET VOLUME 9.5 fL (7.9-10.8); MONOCYTES # (AUTO) 0.6 10^3/uL (0.0-1.0); MONOCYTES % (AUTO) 5.5 %; NEUTROPHILS # (AUTO) 7.9 10^3/uL (1.5-6.6); NEUTROPHILS % (AUTO) 72.9 %; PLT - PLATELET COUNT 346 10^3/uL (130-450); RED CELL DISTRIBUTION WIDTH 16.5 % (12.0-15.0); WHITE BLOOD COUNT 10.9 x10^3/uL (4.8-10.8)
[2023-08-03 04:48] LABS: CALCIUM 9.2 mg/dL (8.5-10.3); CREATININE 0.7 mg/dL (0.6-1.3); MAGNESIUM 1.9 mg/dL (1.7-2.3); PHOSPHORUS 3.8 mg/dL (2.5-5.0); POTASSIUM 3.9 mmol/L (3.5-4.5)
--- NOTE | 2023-08-03 12:56 | Discharge Plan ---
"Discharge Plan for SNF / [facility] - Discharge Plan And Transition Orders Problem Reviewed?: Yes Disposition: SNF DC/Xfer Condition: Stable Allergies and Adverse Reactions: Allergies Allergy/AdvReac Type Severity Reaction Status Date / Time Sulfa (Sulfonamide Allergy Hives Verified 07/31/23 18:46 Antibiotics) Health Concerns: She is an elderly 73-year-old female who is oxygen dependent because of COPD and has lived at a jail facility since last October. She states that she also has high blood pressure, diabetes, and has minimal exertional activity. She gets baths about 2 times a week but sometimes the facility is short staffed and she does not get the bathing that she usually is scheduled for. She states that she started having wipes at the bedside now to help keep her soft clean. She had a urinary tract infection last week and was treated with Rocephin. She came to the emergency room because on the day of admission she developed severe bladder spasms there as bad as being in labor. In the emergency room she met septic criteria with a white cell count greater than 12,000, tachycardic greater than 90, a positive urinalysis, and hypertension with systolics in the 70s and 80s. She was treated with empiric antibiotic therapy in the form of Rocephin. Blood and urine cultures had no growth. She has responded to therapy and blood pressure is now normal, white count is 10.6 thousand, she is alert without any encephalopathy. Creatinine is normal. She has not felt stable for transitioning back to her jail facility. She has been seen by physical therapy who feels that she is below baseline with regards to ambulation and endurance. She would benefit from resuming formal PT and OT. She had an echo last fall that had had an ejection fraction in the 20s. Ejection fraction with today's admission is 35%. Plan of Treatment: With regards to her deconditioning, physical therapy feels that the patient has lost some muscle mass. She is definitely weaker than the last time she was seen in the hospital. She needs help to get out of bed, stand up, and use a front wheel walker. She can walk about 10 feet but she needs cueing, and walker management to help her safely ambulate. She is on her 2 L and was 91% with exertion. She would benefit from PT and OT at least 3 times a week. I have explained to her that she really needs to improve her mobility. After being in bed for 2 months this could lead to higher risk of infection, skin breakdown, and . She also needs to complete antibiotic therapy. She has had 4 days of antibiotics here and needs another 3 days of oral antibiotics. Mason will be discontinued at discharge Care Goals: I have asked her to please aim for goals of ambulating in the facility using a walker on a regular basis. She needs to be able to get up to go to the bathroom by herself. She also needs to be able to get into a shower 2 or 3 times a week with the help of an aide Assessment: Patient is an alert, oriented elderly female who is oriented to person, place, time and situation. Fatalistic. She feels like she really does not have much to live for since friends and family do not come by on a regular basis. 1 daughter lives on the [facility], 1 daughter lives in [place]. She does not wish to go live near them. And her grandchildren have their own life. - SNF / RESIDENTIAL Transition Orders Admit to (Facility): [facility] Under the care of (Name): Kade Discharge Diagnosis: 1. Sepsis secondary to UTI 2. Heart failure, chronic, with reduced ejection fraction 3. Moderate COPD 4. Chronic respiratory failure with hypoxemia 5. Coronary artery disease with history of percutaneous coronary angioplasty 6. Depression 7. Hypertension 8. Morbid obesity with BMI of 45-49 9. Type 2 diabetes mellitus, controlled, without complications, without long- term use of insulin Medicare Certification Statement: I certify that [facility] is medically necessary on a continuing basis for any of the conditions for which she/he is receiving care during hospitalization. Notify PCP of admission and forward orders to primary provider for signature. Weight on admission and: Daily Call PCP immediately if weight increases by: 2 kg Other Notification Orders: Call PCP immediately if patient develops dyspnea, chest pain/tightness or edema. House Bowel Program: Yes Additional Bowel Program Orders: If no BM after 2 days, nurse may give M.O.M. 30ml PO PRN and/or ducolax Supp 1 TX and/or MANDY 250mg P.O., and/or senna 1-2 tabs PO. On day 3 nurse may give repeat above order until residents constipation is resolved. Annual Influenza Vaccine (between Dec 10 and July 09): Yes Two-step PPD per [facility] [phone] or approved exception documents: Yes Oxygen Orders: Nasal cannula oxygen at 2 L/min. To maintain O2 sat greater than 88%. Medication Orders: PLEASE REFER TO THE DISCHARGE MEDICATION LIST. Insulin Orders?: No - Medications New Prescriptions: Ciprofloxacin [Cipro] 500 mg PO Q12H #12 tablet - Diet Type: No added salt Texture: Regular Liquids: Thin May have monthly special meal: Yes - Therapies | Activity Therapy: Evaluation | Treat if indicated: PT, OT Rehabilitation Potential: Maximize functional status Activity: Activity as Tolerated Weight Bearing: Full Weight Assistance Devices: Wheelchair, Walker"
--- NOTE | 2023-08-03 13:27 | DISCHARGE SUMMARY ---
"Discharge Summary Admit Date: 07/31/23 Discharge Date: 08/03/23 Discharging Provider: Rakel Garcia md Primary Care Provider: Nick Draper MD at facility Code Status: Do Not Attempt Resuscitation Condition at Discharge: Fair Discharge Disposition: [facility] DC/Xfer - DIAGNOSES Discharge Diagnoses with Status of Each Condition: 1. Sepsis secondary to UTI/diverticulitis 2. Heart failure, chronic, with reduced ejection fraction 3. Moderate COPD 4. Chronic respiratory failure with hypoxemia 5. Coronary artery disease with history of percutaneous coronary angioplasty 6. Depression 7. Hypertension 8. Morbid obesity with BMI of 45-49 9. Type 2 diabetes mellitus, controlled, without complications, without long- term use of insulin - HPI History of Present Illness: She is an elderly 73-year-old female who is oxygen dependent because of COPD and has lived at a custodial facility since last October. She states that she also has high blood pressure, diabetes, and has minimal exertional activity. She gets baths about 2 times a week but sometimes the facility is short staffed and she does not get the bathing that she usually is scheduled for. She states that she started having wipes at the bedside now to help keep her soft clean. She had a urinary tract infection last week and was treated with Rocephin. She came to the emergency room because on the day of admission she developed severe bladder spasms there as bad as being in labor. In the emergency room she met septic criteria with a white cell count greater than 12,000, tachycardic greater than 90, a positive urinalysis, and hypertension with systolics in the 70s and 80s. Treated empirically as a UTI in the emergency room. Emergency room staff did not do a CT of the abdomen looking for obstruction of kidneys. - CONSULTS | PROCEDURES Procedures: CXR findings compatible with pulmonary edema or CHF. However patient did not experience any fluid overload during her stay and did not require any extra diuretics. CT of abdomen and pelvis with contrast looking for urinary obstruction had mild sigmoid acute diverticulitis without evidence of free air or abscess. A low- density left adrenal nodule. - HOSPITAL COURSE Hospital Course: She was treated with empiric antibiotic therapy in the form of Rocephin. Blood and urine cultures had no growth. She has responded to therapy and blood pressure is now normal, white count is 10.6 thousand, she is alert without any encephalopathy. Creatinine is normal. She has not felt stable for transitioning back to her custodial facility. She has been seen by physical therapy who feels that she is below baseline with regards to ambulation and endurance. She would benefit from resuming formal PT and OT. This entire time she did not have any abdominal pain or flank pain. She had an echo last fall that had had an ejection fraction in the 20s. Ejection fraction with today's admission is 35%. Plan of Treatment: With regards to her deconditioning, physical therapy feels that the patient has lost some muscle mass. She is definitely weaker than the last time she was seen in the hospital. She needs help to get out of bed, stand up, and use a front wheel walker. She can walk about 10 feet but she needs cueing, and walker management to help her safely ambulate. She is on her 2 L and was 91% with exertion. She would benefit from PT and OT at least 3 times a week. I have explained to her that she really needs to improve her mobility. After being in bed for 2 months this could lead to higher risk of infection, skin breakdown, and . She also needs to complete antibiotic therapy. She has had 4 days of antibiotics here and needs another 3 days of oral antibiotics. Mason will be discontinued at discharge. Will be discharged on 3 days of Cipro and 3 days of Flagyl. I have asked her to please aim for goals of ambulating in the facility using a walker on a regular basis. She needs to be able to get up to go to the bathroom by herself. She also needs to be able to get into a shower 2 or 3 times a week with the help of an aide Assessment: Patient is an alert, oriented elderly female who is oriented to person, place, time and situation. Fatalistic. She feels like she really does not have much to live for since friends and family do not come by on a regular basis. 1 daughter lives on the [facility], 1 daughter lives in [place]. She does not wish to go live near them. And her grandchildren have their own life.Temperature is 36.5. Heart rate 69. Blood pressure 153/80. Respirations 18. She is 2 L nasal cannula. A pleasant elderly woman who looks older than stated age. 5 foot 10 inches tall, 105.5 kg. Neck is supple. But I cannot assess for JVD because of growth. Lungs have diminished breath sounds at the bases but are otherwise clear. No crackles, rhonchi or wheezing. There is no tachypnea unless she is trying to get out of bed. She quickly recovers. She has a regular rate and rhythm with distant cardiac tones. And abdomen that has a huge abdominal pannus, normal bowel sounds, nontender. She has Thi intertrigo changes underneath breast, underneath her abdominal pannus in the intertriginous folds of her groin. Extremities have trace edema but there is no skin breakdown of venous stasis, hyperpigmentation. Bones visible in her malleoli. She is alert, oriented to person, place, time and she has no focal deficits. Greater than 30 minutes spent coordinating discharge This document was made in part using voice recognition software. While efforts are made to proofread this document, sound alike and grammatical errors may occur. - ALLERGIES Allergies/Adverse Reactions: Allergies Allergy/AdvReac Type Severity Reaction Status Date / Time Sulfa (Sulfonamide Allergy Hives Verified 07/31/23 18:46 Antibiotics) - MEDICATIONS Home Medications: Ambulatory Orders Medication Instructions Recorded Confirmed Nitroglycerin 0.4 mg SL Q5M PRN 06/22/19 08/01/23 Albuterol Sulf [Ventolin Hfa 2 puffs PO QID PRN 06/28/22 08/01/23 Inhaler] Loperamide [Imodium] 2 mg PO QID PRN #10 cap 07/05/22 08/01/23 Acetaminophen [Tylenol] 650 mg PO Q4HR PRN tab 10/18/22 08/01/23 Aspirin [Aspirin EC] 81 mg PO DAILY #0 10/18/22 08/01/23 Atorvastatin Calcium 40 mg PO QPM #0 10/18/22 08/01/23 Clopidogrel [Plavix] 75 mg PO DAILY tab 10/18/22 08/01/23 Cyanocobalamin [Vitamin B-12] 500 mcg PO DAILY tab 10/18/22 08/01/23 Spironolactone [Aldactone] 25 mg PO DAILY #0 10/18/22 08/01/23 Bisacodyl Supp [Dulcolax Supp] 10 mg RC DAILY PRN 07/31/23 08/01/23 Cranberry Fruit Extract [Cranberry] 2,000 mg PO DAILY 07/31/23 08/01/23 Diclofenac Sodium 1% Gel [Voltaren 1 applic TOP DAILY PRN 07/31/23 08/01/23 Gel] Famotidine [Pepcid] 20 mg PO QDBREAKFAST PRN 07/31/23 08/01/23 Ipratropium/Albuterol [Duoneb] 3 ml NEB Q6H PRN 07/31/23 08/01/23 Lidocaine Patch 4% [Lidocaine Pain 1 patch TOP DAILY PRN 07/31/23 08/01/23 Relief] Mag Hydrox/Aluminum Hyd/Simeth 30 ml PO Q4H PRN 07/31/23 08/01/23 [Alum-Mag Hydroxide-Simeth Cup] Metoprolol Succinate [Toprol Xl] 12.5 mg PO DAILY 07/31/23 08/01/23 Pantoprazole Sodium [Protonix] 20 mg PO DAILY 07/31/23 08/01/23 Potassium Chloride 10 meq PO DAILY 07/31/23 08/01/23 Sacubitril/Valsartan [Entresto 24 1 tab PO BID 07/31/23 08/01/23 mg-26 mg Tablet] Senna [Senokot] 17.2 mg PO DAILY PRN 07/31/23 08/01/23 Sertraline [Zoloft] 75 mg PO DAILY 07/31/23 08/01/23 Sodium Chloride [Salt Tab] 1 tab PO OAW 07/31/23 08/01/23 diphenhydrAMINE [Benadryl] 25 mg PO BID PRN 07/31/23 08/01/23 Calcium Carbonate [Tums (Calcium 1,000 mg PO Q8H PRN 08/01/23 08/01/23 Carbonate 500mg)] Furosemide [Lasix] 40 mg PO DAILY 08/01/23 08/01/23 Nystatin [Klayesta] 1 appful TOP PRN PRN 08/01/23 08/01/23 ONDANSETRON ODT Prepack 2 [ZOFRAN 4 mg PO Q6H PRN 08/01/23 08/01/23 ODT] glipiZIDE [Glucotrol] 5 mg PO QDBREAKFAST 08/01/23 08/01/23 polyethylene glycoL 3350 [Miralax] 17 g PO DAILY PRN 08/01/23 08/01/23 Calcium Carbonate [Tums (Calcium 500 mg PO BID PRN tab 08/03/23 Carbonate 500mg)] Ciprofloxacin [Cipro] 500 mg PO Q12H #12 tablet 08/03/23 Nystatin [Nystop] 15 applic TOP BID PRN each 08/03/23 Zinc Oxide [Stefan Protect] 1 applic TOP PRN PRN each 08/03/23 metroNIDAZOLE [Flagyl] 500 mg PO Q6H #12 tablet 08/03/23 - LABS Result Diagrams: 08/03/23 04:24 08/03/23 04:24 - SEPSIS Possible source of Sepsis: Genitourinary Sepsis Criteria: WBC count greater than 12,000 or less than 4000, SBP less than 90 mmHg, Metabolic: lactate > 2 mmol/L"
[2023-08-03 15:59] VITALS: BP 150/59; O2SAT 93
[2023-08-03] MEDS ORDERED: SODIUM CHLORIDE 1 GM TABLET PO SCH (21:00)
== END 2023-08-03 16:15 | DRG 872 ==
LOC: EDUNIT# → ED 18:33 → ICU 20:57
PROVIDERS: ADMIT Internal Medicine; ATTEND Specialist
DX: A41.9 Sepsis, unspecified organism (principal); N30.00 Acute cystitis without hematuria; I50.22 Chronic systolic (congestive) heart failure; J96.11 Chronic respiratory failure with hypoxia; I50.9 Heart failure, unspecified; Z68.42 Body mass index [BMI] 45.0-49.9, adult; N39.0 Urinary tract infection, site not specified; E87.20 Acidosis, unspecified; I11.0 Hypertensive heart disease with heart failure; D72.829 Elevated white blood cell count, unspecified; Z11.2 Encounter for screening for other bacterial diseases; Z11.52 Encounter for screening for COVID-19; Z11.59 Encounter for screening for other viral diseases; J44.9 Chronic obstructive pulmonary disease, unspecified; I25.10 Atherosclerotic heart disease of native coronary artery without angina pectoris; F32.A Depression, unspecified; E66.01 Morbid (severe) obesity due to excess calories; E11.9 Type 2 diabetes mellitus without complications; E78.5 Hyperlipidemia, unspecified; M19.90 Unspecified osteoarthritis, unspecified site; R33.9 Retention of urine, unspecified; I25.2 Old myocardial infarction; F41.9 Anxiety disorder, unspecified; Z66 Do not resuscitate; I95.9 Hypotension, unspecified; K21.9 Gastro-esophageal reflux disease without esophagitis; I35.1 Nonrheumatic aortic (valve) insufficiency; Z79.82 Long term (current) use of aspirin; Z79.84 Long term (current) use of oral hypoglycemic drugs; Z79.899 Other long term (current) drug therapy; Z81.8 Family history of other mental and behavioral disorders; Z82.49 Family history of ischemic heart disease and other diseases of the circulatory system; Z87.891 Personal history of nicotine dependence; Z88.2 Allergy status to sulfonamides; Z95.5 Presence of coronary angioplasty implant and graft; Z99.81 Dependence on supplemental oxygen
CPT/HCPCS: 36415; 51702; 71045; 74177; 80048; 80053; 81001; 82330; 82607; 83036; 83605; 83690; 83735; 84100; 84132; 85025; 85610; 85730; 87040; 87086; 87150; 87507; 87633; 93307; 94640; 96361; 96374; 97162; 97166; 99291; A9270; J1650; Q9967; 81003

== ENCOUNTER 2023-08-09 13:38 | Outpatient (CLI) | payer MEDICARE, MEDICAID | END 2023-08-09 23:42 | disposition critical access hospital (66) | LOC: EMS 13:38 | DX: R06.03 Acute respiratory distress (principal); R00.0 Tachycardia, unspecified | CPT/HCPCS: A0425; A0427 ==

== ENCOUNTER 2023-08-09 13:46 | Emergency (ER) | payer MEDICARE, MEDICAID ==
--- NOTE | 2023-08-09 13:59 | ED Physician Documentation ---
PD HPI DYSPNEA - Stated complaint Stated Complaint: SOA - History obtained from History obtained from: Patient - Additional information Additional information: 73-year-old woman with history of HFrEF, COPD, chronic respiratory failure, CAD with PA, morbid obesity, type 2 diabetes. She has been having mobility issues ever since she got shingles and more recently about a week ago was in the hospital for sepsis related to UTI and diverticulitis. She suddenly became more short of breath than usual today but has been had a productive cough of yellow sputum recently. Denies chest pain or pedal edema. She received a DuoNeb en route and is doing better after that. She is a chronic SNF resident. She does chronically wear oxygen at 2 L/min. PD PAST MEDICAL HISTORY - Past Medical History Cardiovascular: Congestive heart failure, Hypertension, High cholesterol, Coronary artery disease, PA Respiratory: COPD, Shortness of breath, Other Neuro: None Endocrine/Autoimmune: Type 2 diabetes GI: None [employer]: None : None HEENT: None Psych: Depression, Anxiety Musculoskeletal: Osteoarthritis, Other Derm: Other - Past Surgical History Past Surgical History: Yes General: Cholecystectomy, Appendectomy Cardiovascular: Coronary stent HEENT: Tonsil/Adenoidectomy - Present Medications Home Medications: Ambulatory Orders Medication Instructions Recorded Confirmed Nitroglycerin 0.4 mg SL Q5M PRN 06/22/19 08/01/23 Albuterol Sulf [Ventolin Hfa 2 puffs PO QID PRN 06/28/22 08/01/23 Inhaler] Loperamide [Imodium] 2 mg PO QID PRN #10 cap 07/05/22 08/01/23 Acetaminophen [Tylenol] 650 mg PO Q4HR PRN tab 10/18/22 08/01/23 Aspirin [Aspirin EC] 81 mg PO DAILY #0 10/18/22 08/01/23 Atorvastatin Calcium 40 mg PO QPM #0 10/18/22 08/01/23 Clopidogrel [Plavix] 75 mg PO DAILY tab 10/18/22 08/01/23 Cyanocobalamin [Vitamin B-12] 500 mcg PO DAILY tab 10/18/22 08/01/23 Spironolactone [Aldactone] 25 mg PO DAILY #0 10/18/22 08/01/23 Bisacodyl Supp [Dulcolax Supp] 10 mg RC DAILY PRN 07/31/23 08/01/23 Cranberry Fruit Extract [Cranberry] 2,000 mg PO DAILY 07/31/23 08/01/23 Diclofenac Sodium 1% Gel [Voltaren 1 applic TOP DAILY PRN 07/31/23 08/01/23 Gel] Famotidine [Pepcid] 20 mg PO QDBREAKFAST PRN 07/31/23 08/01/23 Ipratropium/Albuterol [Duoneb] 3 ml NEB Q6H PRN 07/31/23 08/01/23 Lidocaine Patch 4% [Lidocaine Pain 1 patch TOP DAILY PRN 07/31/23 08/01/23 Relief] Mag Hydrox/Aluminum Hyd/Simeth 30 ml PO Q4H PRN 07/31/23 08/01/23 [Alum-Mag Hydroxide-Simeth Cup] Metoprolol Succinate [Toprol Xl] 12.5 mg PO DAILY 07/31/23 08/01/23 Pantoprazole Sodium [Protonix] 20 mg PO DAILY 07/31/23 08/01/23 Potassium Chloride 10 meq PO DAILY 07/31/23 08/01/23 Sacubitril/Valsartan [Entresto 24 1 tab PO BID 07/31/23 08/01/23 mg-26 mg Tablet] Senna [Senokot] 17.2 mg PO DAILY PRN 07/31/23 08/01/23 Sertraline [Zoloft] 75 mg PO DAILY 07/31/23 08/01/23 Sodium Chloride [Salt Tab] 1 tab PO OAW 07/31/23 08/01/23 diphenhydrAMINE [Benadryl] 25 mg PO BID PRN 07/31/23 08/01/23 Calcium Carbonate [Tums (Calcium 1,000 mg PO Q8H PRN 08/01/23 08/01/23 Carbonate 500mg)] Furosemide [Lasix] 40 mg PO DAILY 08/01/23 08/01/23 Nystatin [Klayesta] 1 appful TOP PRN PRN 08/01/23 08/01/23 ONDANSETRON ODT Prepack 2 [ZOFRAN 4 mg PO Q6H PRN 08/01/23 08/01/23 ODT] glipiZIDE [Glucotrol] 5 mg PO QDBREAKFAST 08/01/23 08/01/23 polyethylene glycoL 3350 [Miralax] 17 g PO DAILY PRN 08/01/23 08/01/23 Calcium Carbonate [Tums (Calcium 500 mg PO BID PRN tab 08/03/23 Carbonate 500mg)] Ciprofloxacin [Cipro] 500 mg PO Q12H #12 tablet 08/03/23 Nystatin [Nystop] 15 applic TOP BID PRN each 08/03/23 Zinc Oxide [Stefan Protect] 1 applic TOP PRN PRN each 08/03/23 metroNIDAZOLE [Flagyl] 500 mg PO Q6H #12 tablet 08/03/23 Doxycycline [Vibramycin] 100 mg PO BID #14 tablet 08/09/23 predniSONE [Deltasone] 20 mg PO [id number] #21 tab 08/09/23 - Allergies Allergies/Adverse Reactions: Allergies Allergy/AdvReac Type Severity Reaction Status Date / Time Sulfa (Sulfonamide Allergy Hives Verified 08/09/23 14:00 Antibiotics) - Social History Does the pt smoke?: No Smoking Status: Former smoker Does the pt drink ETOH?: No Does the pt have substance abuse?: No - Immunizations Immunizations are current?: Yes - POLST Patient has POLST: No POLST Status: WantsDNI/but CPR&defib OK PD ED PE NORMAL - Vitals Vital signs reviewed: Yes - General General: Alert and oriented X 3, No acute distress - HEENT HEENT: PERRL, EOMI - Neck Neck: Supple, no meningeal sign, No bony TTP - Cardiac Cardiac: RRR, No murmur - Respiratory Respiratory: Other (Wheezy throughout with mild tachypnea, but speaking in full sentences) - Abdomen Abdomen: Non tender - Extremities Extremities: No edema, No calf tenderness / cord - Neuro Neuro: Alert and oriented X 3 Results - Vitals Vitals: Vital Signs - 24 hr 08/09/23 13:54 Temperature 36.3 C L Heart Rate 94 Respiratory 21 Rate Blood Pressure 180/94 H O2 Saturation 97 Oxygen O2 Source [] Nasal cannula O2 Source [] Nasal cannula O2 Source Nasal cannula - EKG (time done) 1503 EKG releavant findings:: EKG personally interpreted by author of this note. Relevant findings are: Rate: Rate (enter#) (76) Rhythm: NSR Keymar: Normal Intervals: QRS normal Ischemia: Normal ST segments, Q waves Computer interpretation: Agree with computer - Labs Labs: Laboratory Tests 08/09/23 08/09/23 08/09/23 14:07 14:07 14:07 WBC 13.5 H RBC 4.62 Hgb 11.3 L Hct 39.1 MCV 84.6 MCH 24.5 L MCHC 28.9 L RDW 16.0 H Plt Count 507 H MPV 9.6 Neut # (Auto) 10.5 H Lymph # (Auto) 1.8 [place] # (Auto) 0.6 Eos # (Auto) 0.4 Baso # (Auto) 0.1 Absolute Nucleated RBC 0.00 Nucleated RBC % 0.0 VBG pH 7.360 VBG pCO2 51.4 H VBG pO2 39.8 VBG HCO3 28.4 H VBG Total CO2 30.0 H VBG O2 Saturation 74.9 VBG Base Excess 2.1 H Sodium 138 Potassium 3.9 Chloride 100 L Carbon Dioxide 30 Anion Gap 8.0 BUN 13 Creatinine 0.9 Estimated GFR (MDRD) 61 L Glucose 114 H Calcium 8.9 Phosphorus 4.8 Magnesium 1.7 Total Bilirubin 0.3 AST 10 ALT 10 Alkaline Phosphatase 79 Total Protein 6.9 Albumin 3.4 Globulin 3.5 Albumin/Globulin Ratio 1.0 Nasal Adenovirus (PCR) Nasal B. parapertussis DNA (PCR) Nasal Coronavir 229E PCR Nasal Coronavir HKU1 PCR Nasal Coronavir NL63 PCR Nasal Coronavir OC43 PCR Nasal Enterovir/Rhinovir PCR Nasal Influenza B PCR Nasal Influenza A PCR Nasal Parainfluen 1 PCR Nasal Parainfluen 2 PCR Nasal Parainfluen 3 PCR Nasal Parainfluen 4 PCR Nasal RSV (PCR) Nasal B.pertussis DNA PCR Nasal C.pneumoniae (PCR) [place] Human Metapneumo PCR Nasal M.pneumoniae (PCR) Nasal SARS-CoV-2 (PCR) 08/09/23 14:08 WBC RBC Hgb Hct MCV MCH MCHC RDW Plt Count MPV Neut # (Auto) Lymph # (Auto) [place] # (Auto) Eos # (Auto) Baso # (Auto) Absolute Nucleated RBC Nucleated RBC % VBG pH VBG pCO2 VBG pO2 VBG HCO3 VBG Total CO2 VBG O2 Saturation VBG Base Excess Sodium Potassium Chloride Carbon Dioxide Anion Gap BUN Creatinine Estimated GFR (MDRD) Glucose Calcium Phosphorus Magnesium Total Bilirubin AST ALT Alkaline Phosphatase Total Protein Albumin Globulin Albumin/Globulin Ratio Nasal Adenovirus (PCR) NOT DETECTED Nasal B. parapertussis DNA (PCR) NOT DETECTED Nasal Coronavir 229E PCR NOT DETECTED Nasal Coronavir HKU1 PCR NOT DETECTED Nasal Coronavir NL63 PCR NOT DETECTED Nasal Coronavir OC43 PCR NOT DETECTED Nasal Enterovir/Rhinovir PCR NOT DETECTED Nasal Influenza B PCR NOT DETECTED Nasal Influenza A PCR NOT DETECTED Nasal Parainfluen 1 PCR NOT DETECTED Nasal Parainfluen 2 PCR NOT DETECTED Nasal Parainfluen 3 PCR NOT DETECTED Nasal Parainfluen 4 PCR NOT DETECTED Nasal RSV (PCR) NOT DETECTED Nasal B.pertussis DNA PCR NOT DETECTED Nasal C.pneumoniae (PCR) NOT DETECTED [place] Human Metapneumo PCR NOT DETECTED Nasal M.pneumoniae (PCR) NOT DETECTED Nasal SARS-CoV-2 (PCR) NOT DETECTED - Rads (name of study) Single view chest x-ray suggestive of CHF. Of note this is similar to prior x-rays when she was not clinically in CHF. Relevant Findings:: Final report received, EMP independent interpretation of test PD Medical Decision Making - ED course ED course: 73-year-old woman presents with acute dyspnea and cough. With her exam being mostly wheezy I suspect a COPD exacerbation and she has improved on the way here. She wears chronic oxygen and is at a SNF. Workup demonstrates nonspecific leukocytosis at 13,000. Venous gas showing elevation of CO2 but likely chronic based on normal pH. CMP was grossly unremarkable. EKG was without ischemia and she was feeling much better after the DuoNeb on the way here. She was administered steroids, 125 mg of Solu-Medrol and doxycycline for antibiotics. She remained stable after a couple of hours and with good sats on her usual 2 L of oxygen so discharged home with a COPD flare. Departure - Departure Disposition: 01 Home, Self Care Clinical Impression: COPD exacerbation Condition: Good Record reviewed to determine appropriate education?: Yes Instructions: COPD Dc Prescriptions: predniSONE [Deltasone] 20 mg PO [id number] #21 tab Doxycycline [Vibramycin] 100 mg PO BID #14 tablet Comments: You are seen today for a COPD flare. I am prescribing antibiotics and steroids. It would be best if you were able to access cooler air or a window at the SNF. Call your doctor to arrange a follow-up appointment, make the next available appointment. In the interim, return anytime if worse or if new symptoms develop.
[2023-08-09 14:16] LABS: BASOPHILS # (AUTO) 0.1 10^3/uL (0.0-0.1); BASOPHILS % (AUTO) 0.4 %; EOSINOPHILS # (AUTO) 0.4 10^3/uL (0.0-0.7); EOSINOPHILS % (AUTO) 2.6 %; HCT - HEMATOCRIT 39.1 % (37.0-47.0); HGB - HEMOGLOBIN 11.3 g/dL (12.0-16.0); LYMPHOCYTES # (AUTO) 1.8 10^3/uL (1.5-3.5); LYMPHOCYTES % (AUTO) 13.7 %; MEAN CORPUSCULAR HEMOGLOBIN 24.5 pg (27.0-31.0); MEAN CORPUSCULAR HGB CONC 28.9 g/dL (32.0-36.0); MEAN CORPUSCULAR VOLUME 84.6 fL (81.0-99.0); MEAN PLATELET VOLUME 9.6 fL (7.9-10.8); MONOCYTES # (AUTO) 0.6 10^3/uL (0.0-1.0); MONOCYTES % (AUTO) 4.6 %; NEUTROPHILS # (AUTO) 10.5 10^3/uL (1.5-6.6); NEUTROPHILS % (AUTO) 78.3 %; PLT - PLATELET COUNT 507 10^3/uL (130-450); RED BLOOD COUNT 4.62 10^6/uL (4.20-5.40); WHITE BLOOD COUNT 13.5 x10^3/uL (4.8-10.8)
[2023-08-09 14:29] LABS: ALBUMIN 3.4 g/dL (3.2-5.5); BILIRUBIN,TOTAL 0.3 mg/dL (0.2-1.0); CALCIUM 8.9 mg/dL (8.5-10.3); CREATININE 0.9 mg/dL (0.6-1.3); MAGNESIUM 1.7 mg/dL (1.7-2.3); PHOSPHORUS 4.8 mg/dL (2.5-5.0); POTASSIUM 3.9 mmol/L (3.5-4.5); TOTAL PROTEIN 6.9 g/dL (6.4-8.9)
[2023-08-09 14:30] LABS: VBG BASE EXCESS 2.1 mmol/L (-2 - +2); VBG HCO3 28.4 mmol/L (23-28); VBG OXYGEN SATURATION 74.9 % (60-80); VBG PCO2 51.4 mmHg (41-51); VBG PH 7.36 (7.31-7.41); VBG PO2 39.8 mmHg (25-47)
[2023-08-09] MEDS: methylPREDNISolone SUCCINATE 125 MG/2 ML VIAL IVP STA (14:49)
--- NOTE | 2023-08-09 15:00 | XRAY Report ---
PROCEDURE: Chest 1V INDICATIONS: cough dyspnea TECHNIQUE: One view of the chest was acquired. COMPARISON: 2123. FINDINGS: Surgical changes and devices: None. Lungs and pleura: There is pulmonary vascular congestion and suggestion of small left pleural effusi on. Increased interstitial lung markings are noted bilaterally suggestive of pulmonary edema. No defi nite focal infiltrate. No pneumothorax. Mediastinum: Mediastinal contours appear normal. Heart size is enlarged. Bones and chest wall: No suspicious bony lesions. Overlying soft tissues appear unremarkable. IMPRESSION: Finding is suggestive of CHF. Superimposed interstitial infiltrates cannot be entirely excluded. Smal l left pleural effusion. No gross pneumothorax. Reviewed by: Erick Barraza MD on 08/09/2023 2:58 PM PDT Approved by: Erick Barraza MD on 08/09/2023 2:58 PM PDT Station ID: [id number]
[2023-08-09 15:03] LABS: B. PARAPERTUSSIS- RESP PCR PAN NOT DETECTED; B. PERTUSSIS- RESP PCR PANEL NOT DETECTED; C. PNEUMONIAE- RESP PCR PANEL NOT DETECTED; CORONAVIRUS 229E-RESP PCR NOT DETECTED; CORONAVIRUS HKU1-RESP PCR NOT DETECTED; CORONAVIRUS NL63-RESP PCR NOT DETECTED; CORONAVIRUS OC43-RESP PCR NOT DETECTED; HUMAN METAPNEUMOVIRUS NOT DETECTED; INFLUENZA A- RESP PCR PANEL NOT DETECTED; INFLUENZA B - RESP PCR PANEL NOT DETECTED; M. PNEUMONIAE- RESP PCR PANEL NOT DETECTED; PARAINFLUENZA VIRUS 1 NOT DETECTED; PARAINFLUENZA VIRUS 2 NOT DETECTED; PARAINFLUENZA VIRUS 3 NOT DETECTED; PARAINFLUENZA VIRUS 4 NOT DETECTED; RHINOVIRUS/ENTEROVIRUS NOT DETECTED; RSV- RESP PCR PANEL NOT DETECTED; SARS-CoV-2 -RESP PCR PANEL NOT DETECTED
[2023-08-09 16:19] VITALS: BP 124/98; O2SAT 93
== END 2023-08-09 16:14 | disposition home or self-care (01) ==
LOC: EDUNIT# → ED 13:46
DX: J44.1 Chronic obstructive pulmonary disease with (acute) exacerbation (principal); I11.0 Hypertensive heart disease with heart failure; I50.20 Unspecified systolic (congestive) heart failure; E78.00 Pure hypercholesterolemia, unspecified; I25.10 Atherosclerotic heart disease of native coronary artery without angina pectoris; E11.9 Type 2 diabetes mellitus without complications; Z79.4 Long term (current) use of insulin; Z79.899 Other long term (current) drug therapy
CPT/HCPCS: 36415; 80053; 82803; 83735; 84100; 85025; 87633; 93005; 96374; 99284

== ENCOUNTER 2023-08-09 16:21 | Outpatient (CLI) | payer MEDICARE, MEDICAID | END 2023-08-09 23:59 | disposition home or self-care (01) | LOC: EMS 16:21 | PROVIDERS: ATTEND Emergency Medicine | DX: Z74.01 Bed confinement status (principal) | CPT/HCPCS: A0425; A0428 ==

== ENCOUNTER 2023-10-26 18:12 | Outpatient (CLI) | payer MEDICARE, MEDICAID | END 2023-10-26 23:59 | disposition short-term general hospital (02) | LOC: EMS 18:12 | DX: I21.3 ST elevation (STEMI) myocardial infarction of unspecified site (principal); I63.9 Cerebral infarction, unspecified; J96.90 Respiratory failure, unspecified, unspecified whether with hypoxia or hypercapnia | CPT/HCPCS: A0425; A0433 ==

== ENCOUNTER 2023-11-06 08:00 | Outpatient (CLI) | payer MEDICARE, MEDICAID ==
[2023-11-06 15:31] LABS: CALCIUM 9.2 mg/dL (8.5-10.3); CREATININE 0.8 mg/dL (0.6-1.3); POTASSIUM 3.7 mmol/L (3.5-4.5)
== END 2023-11-06 23:59 | disposition home or self-care (01) ==
LOC: LAB.R 08:00
PROVIDERS: ATTEND Registered Nurse
DX: J96.11 Chronic respiratory failure with hypoxia (principal); E87.1 Hypo-osmolality and hyponatremia
CPT/HCPCS: 80048

== ENCOUNTER 2024-04-05 10:46 | Inpatient (IN) ==
--- NOTE | 2024-04-05 10:55 | ED Physician Documentation ---
PD HPI DYSPNEA Stated complaint Stated Complaint: LOW O2 Chief complaint Chief Complaint: Resp History obtained from History obtained from: Patient, EMS and Caregiver History of Present Illness Timing - onset: Last night and Yesterday (Reportedly the patient just started seeming ill with a cough and increased trouble breathing yesterday into last night and much worse this morning with altered mentation today and fever.) Timing - onset during: Rest Timing - details: Abrupt onset Inciting event(s): URI (Fever cough and congestion today) Associated symptoms: Fever, Cough, Wheezing and Bilateral edema (mild); No Hemoptysis Similar symptoms before: Diagnosis (hospitalized July of this year with similar , but triggered by UTI rather than primary resp infection. Has history of CHF and COPD.) Meds/Allgy Home Medications Ambulatory Orders Medication Instructions Recorded Confirmed nitroglycerin 0.4 mg sublingual 0.4 mg sublingual Q5M PRN Chest 06/22/19 04/05/24 tablet Pain albuterol sulfate 90 mcg/actuation 2 puff PO QID PRN Shortness Of 06/28/22 04/05/24 aerosol inhaler (Ventolin HFA) Air/Wheezing acetaminophen 325 mg tablet 650 mg (2 x 325 mg) PO Q4HR PRN 10/18/22 04/05/24 Pain 1 to 4, or Fever aspirin 81 mg tablet,delayed 81 mg PO DAILY CAD hx ##0 10/18/22 04/05/24 release atorvastatin 40 mg tablet 40 mg PO QPM hyperlipidemia ##0 10/18/22 04/05/24 clopidogrel 75 mg tablet 75 mg PO DAILY for CAD 10/18/22 04/05/24 cyanocobalamin (vitamin B-12) 500 500 mcg PO DAILY low B12 10/18/22 04/05/24 mcg tablet spironolactone 25 mg tablet 25 mg PO DAILY chornic systolic 10/18/22 04/05/24 (Aldactone) chf ##0 Lidocaine Patch 4% [Lidocaine Pain 1 patch topical DAILY PRN Pain 1-4 07/31/23 04/05/24 Relief] Mag Hydrox/Aluminum Hyd/Simeth 30 ml PO Q4H PRN Indigestion 07/31/23 04/05/24 [Alum-Mag Hydroxide-Simeth Cup] bisacodyl 10 mg rectal suppository 10 mg RC DAILY PRN Constipation 07/31/23 04/05/24 cranberry extract 500 mg tablet 2,000 mg PO DAILY 07/31/23 04/05/24 diclofenac sodium 1 % topical gel 1 applic topical BID PRN pain 07/31/23 04/05/24 (Arthritis Pain (diclofenac)) diphenhydramine HCl 25 mg capsule 25 mg PO BID PRN Allergy Symptoms 07/31/23 04/05/24 (Banophen) ipratropium 0.5 mg-albuterol 3 mg 3 ml NEB Q6H PRN Wheezing 07/31/23 04/05/24 (2.5 mg base)/3 mL nebulization soln metoprolol succinate 25 mg 12.5 mg PO DAILY 07/31/23 04/05/24 tablet,extended release 24 hr pantoprazole 20 mg tablet,delayed 20 mg PO DAILY 07/31/23 04/05/24 release (Protonix) potassium chloride 10 mEq 10 meq PO DAILY 07/31/23 04/05/24 capsule,extended release sennosides 8.6 mg tablet (Senna 17.2 mg PO DAILY PRN Constipation 07/31/23 04/05/24 Lax) sodium chloride 1,000 mg soluble 1 tab PO OAW 07/31/23 04/05/24 tablet furosemide 40 mg tablet 40 mg PO DAILY 08/01/23 04/05/24 glipizide 5 mg tablet 5 mg PO QDBREAKFAST 08/01/23 04/05/24 ondansetron 4 mg disintegrating 4 mg PO Q6H PRN Nausea / Vomiting 08/01/23 04/05/24 tablet polyethylene glycol 3350 17 gram 17 g PO DAILY PRN Constipation 08/01/23 04/05/24 oral powder packet calcium carbonate 500 mg (2.5 x 200 mg calcium (500 08/03/23 04/05/24 mg)) PO BID PRN Indigestion nystatin 100,000 unit/gram topical 15 applic topical BID PRN inna 08/03/23 04/05/24 powder (Nyamy) intertrigo carboxymethylcellulose sodium 1 % 1 drp ophthalmic (eye) Q6H PRN dry 04/05/24 04/05/24 eye drops (Artificial Tears eye(s) (carboxymethylcellulose)) guaifenesin 600 mg tablet, 600 mg PO BID PRN congestion 04/05/24 04/05/24 extended release 12 hr hydrocodone 5 mg-acetaminophen 325 1 tab PO Q12H PRN pain 04/05/24 04/05/24 mg tablet lisinopril 2.5 mg tablet 2.5 mg PO DAILY 04/05/24 04/05/24 loperamide 2 mg capsule 2 mg PO Q OTHER DAY Diarrhea 04/05/24 04/05/24 mineral oil (Fleet Mineral Oil 118 ml [place] DAILY PRN constipation 04/05/24 04/05/24 enema) naloxone 4 mg/actuation nasal 4 mg intranasal Q2M 04/05/24 04/05/24 spray (Narcan) sertraline 25 mg tablet 75 mg PO DAILY 04/05/24 04/05/24 zinc oxide 20 % topical ointment 1 applic topical PRN PRN skin 04/05/24 04/05/24 (Endit (zinc oxide)) irritation Allergies Allergies Allergy/AdvReac Type Severity Reaction Status Date / Time Sulfa (Sulfonamide Allergy Hives Verified 08/09/23 14:00 Antibiotics) [facility] Social History Social History (Updated 04/05/24 @ 10:59 by Gretta Torres RN) Smoking Status: Former smoker If you are a former smoker, when did you quit? (Date/Year): 2019 Number of Years Smoked: 55 How many cigarettes a day do you smoke? (20 cigarettes=1 Pk): 20 Do you dip or chew tobacco?: No Patient requests smoking cessation consult: No Initiate information on smoking cessation: No Living arrangement: At home (rental property on her brother's property) Living Condition: Alone (Brother lives next door.) Relationship: Caregiver Level: Dependent Home Mobility Equipment: Walker Do you feel safe in your home environment?: Yes Suffered physical, verbal, emotional, or financial abuse?: No History of Abuse: No ETOH Use: None Substance Use: denies use POLST Patient has POLST: No POLST Status: WantsDNI/but CPR&defib OK Exam Constitutional normal general appearance, distress noted (moderate) (increased work of breathing and AMS/confused) and abnormal body habitus (overweight) HENMT normocephalic Lymph no lymphadenopathy noted Chest inspection of chest normal Respiratory breath sounds unequal (more diminished to right. ), abnormal respiratory effort (labored), wheezing noted (diffuse significant wheezing bilaterally.) and rales noted (some crackles at bases.) Cardiovascular heart rate abnormal (tachycardic), regular rhythm noted and edema noted (1+ edema in both lower legs. ) Gastrointestinal abdomen soft to palpation and nontender to palpation Extremities no tenderness Results Vitals Vitals: Vital Signs - 24 hr 04/05/24 10:52 04/05/24 11:06 04/05/24 11:07 Temperature 39.6 C H Temperature Source Axillary Pulse Rate 122 H Respiratory Rate 26 H 20 Blood Pressure 119/93 H 119/96 H O2 Saturation 95 94 Oxygen Delivery Method Nasal Cannula O2 Source neb treat HHFNC FiO2 (%) Pain Intensity 0 0 04/05/24 11:11 04/05/24 11:41 04/05/24 12:00 Temperature Temperature Source Pulse Rate 117 H 117 H Respiratory Rate 23 24 Blood Pressure 144/50 H 144/50 H O2 Saturation 91 L 88 L Oxygen Delivery Method Nasal Cannula O2 Source HHFNC HHFNC FiO2 (%) 50 Pain Intensity 6 8 04/05/24 12:37 Temperature Temperature Source Pulse Rate 103 H Respiratory Rate 22 Blood Pressure 110/56 L O2 Saturation 95 Oxygen Delivery Method O2 Source HHFNC FiO2 (%) Pain Intensity 0 Oxygen O2 Source [Without Activity] Nasal cannula O2 Source [With Activity] Nasal cannula O2 Source HHFNC Labs Labs: Laboratory Tests 04/05/24 04/05/24 04/05/24 10:52 11:00 11:23 WBC 26.6 H RBC 5.08 Hgb 12.5 Hct 43.7 MCV 86.0 MCH 24.6 L MCHC 28.6 L RDW 15.1 H Plt Count 730 H MPV 10.3 Neut # (Auto) 21.7 H Lymph # (Auto) 3.0 [place] # (Auto) 1.5 H Eos # (Auto) 0.2 Baso # (Auto) 0.1 Absolute Nucleated RBC 0.00 Nucleated RBC % 0.0 Manual Slide Review Indicated Platelet Estimate INCREASED (>450,000) Platelet Morphology NORMAL APPEARANCE RBC Morph Micro Appear 1+ HYPOCHROMASIA Sodium 135 Potassium 4.2 Chloride 95 L Carbon Dioxide 28 Anion Gap 12.0 BUN 15 Creatinine 0.9 Estimated GFR (MDRD) 61 L Glucose 260 H Lactic Acid 3.1 H* Calcium 8.7 Magnesium 1.8 Total Bilirubin 0.7 AST 80 H ALT 63 H Alkaline Phosphatase 217 H B-Natriuretic Peptide 1692 H Total Protein 7.4 Albumin 3.5 Globulin 3.9 Albumin/Globulin Ratio 0.9 L Lipase 11 Nasal Adenovirus (PCR) NOT DETECTED Nasal B. parapertussis DNA (PCR) NOT DETECTED Nasal Coronavir 229E PCR NOT DETECTED Nasal Coronavir HKU1 PCR NOT DETECTED Nasal Coronavir NL63 PCR NOT DETECTED Nasal Coronavir OC43 PCR NOT DETECTED Nasal Enterovir/Rhinovir PCR NOT DETECTED Nasal Influenza B PCR NOT DETECTED Nasal Influenza A PCR NOT DETECTED Nasal Parainfluen 1 PCR NOT DETECTED Nasal Parainfluen 2 PCR NOT DETECTED Nasal Parainfluen 3 PCR NOT DETECTED Nasal Parainfluen 4 PCR NOT DETECTED Nasal RSV (PCR) NOT DETECTED Nasal B.pertussis DNA PCR NOT DETECTED Nasal C.pneumoniae (PCR) NOT DETECTED [place] Human Metapneumo PCR NOT DETECTED Nasal M.pneumoniae (PCR) NOT DETECTED Nasal SARS-CoV-2 (PCR) NOT DETECTED PD Medical Decision Making ED course Complexity details: reviewed results, re-evaluated patient (She is having less work of breathing. Lung sounds are less wheezy. Respiratory rate and heart rate are improved. She is still normotensive. She is now cognitively interacting and following commands and answering simple questions. Still high flow for now. ) and d/w learning and development consultant (Hospitalist) ED course: The patient arrives via EMS with report of cough and increased trouble breathing starting just yesterday and much worse today associated with fever and altered mental status. She does have a history of COPD and CHF. No notable edema. She does have a fever coming in so more likely infectious. However the patient's first chest x-ray showed mixed increased vascular congestion with also possible patchy infiltrates. She arrived with decreased mentation and a bit confused reaching out to the air in front of her. She is on a nonrebreather mask with the DuoNeb ongoing. Saturations are in the 90s percent with this. Blood pressure is adequate. She is somewhat tachycardic. She is having tachypnea with some accessory muscle use. Concern would be for respiratory failure impending. She was monitored closely with frequent reassessments. After the nebulizer treatment, we were able to place her on a high flow nasal cannula which allowed for adequate oxygenation. She did have improved mentation was able to answer questions and follow direction for handgrip etc. She did have a fever initially. As she has more appropriate mentation, we will give her some Tylenol. I did not give much IV fluids for concern of an element of CHF. Blood pressure remained adequate. Blood tests did return elevated white count of 26,000. Her lactate was elevated at 3.1. Renal function normal creatinine. Main electrolytes were okay. Her BNP was elevated at 1600 without prior comparisons. Her chest x-ray along with an elevated BNP again gave concern for mixed COPD and CHF in the setting of precipitated by a respiratory infection/pneumonia. IV fluids were held even though she appeared sepsis criteria. Effect I gave a dose of Lasix due to the chest x-ray impression. The patient did seem to be stable now with improved mentation and able to follow direction. Her breathing rate and ease improved. She was given repeat albuterol nebulizer as well. She was given dexamethasone IV for presumed exacerbation of COPD and also Levaquin IV for healthcare acquired pneumonia as she does live in a longterm facility. I talked with the hospitalist who will come and see the patient. Critical Care Time(min): 50 Time Includes: Direct patient care, Reassess patient, Document care, Coordinate care and Medical consult Data interpretation: Labs, Pulse ox and CXR Discharge Plan Discharge Patient Disposition: [facility] DC/Xfer Condition: Serious Clinical Impression: Pneumonia, Acute on chronic diastolic (congestive) heart failure, Acute exacerbation of chronic obstructive pulmonary disease, Sepsis, Acute dyspnea Interventions: ED Admission Assessment Last Done: 04/05/24 13:15
[2024-04-05 11:07] LABS: BASOPHILS # (AUTO) 0.1 10^3/uL (0.0-0.1); BASOPHILS % (AUTO) 0.3 %; EOSINOPHILS # (AUTO) 0.2 10^3/uL (0.0-0.7); EOSINOPHILS % (AUTO) 0.8 %; HCT - HEMATOCRIT 43.7 % (37.0-47.0); HGB - HEMOGLOBIN 12.5 g/dL (12.0-16.0); LYMPHOCYTES % (AUTO) 11.3 %; MEAN CORPUSCULAR HEMOGLOBIN 24.6 pg (27.0-31.0); MEAN CORPUSCULAR HGB CONC 28.6 g/dL (32.0-36.0); MEAN PLATELET VOLUME 10.3 fL (7.9-10.8); MONOCYTES # (AUTO) 1.5 10^3/uL (0.0-1.0); MONOCYTES % (AUTO) 5.5 %; NEUTROPHILS # (AUTO) 21.7 10^3/uL (1.5-6.6); NEUTROPHILS % (AUTO) 81.5 %; PLT - PLATELET COUNT 730 10^3/uL (130-450); RED BLOOD COUNT 5.08 10^6/uL (4.20-5.40); RED CELL DISTRIBUTION WIDTH 15.1 % (12.0-15.0); WHITE BLOOD COUNT 26.6 x10^3/uL (4.8-10.8)
[2024-04-05 11:11] LABS: SLIDE REVIEW? Indicated
[2024-04-05 11:23] LABS: ALBUMIN 3.5 g/dL (3.2-5.5); ALBUMIN/GLOBULIN RATIO 0.9 (1.0-2.2); BILIRUBIN,TOTAL 0.7 mg/dL (0.2-1.0); CALCIUM 8.7 mg/dL (8.5-10.3); CREATININE 0.9 mg/dL (0.6-1.3); MAGNESIUM 1.8 mg/dL (1.7-2.3); POTASSIUM 4.2 mmol/L (3.5-4.5); TOTAL PROTEIN 7.4 g/dL (6.4-8.9)
[2024-04-05 11:27] LABS: PLATELET ESTIMATE, MANUAL INCREASED (>450,000) (NORMAL); PLATELET MORPHOLOGY NORMAL APPEARANCE (NORMAL); RBC MORPHOLOGY (MULTIPLE) 1+ HYPOCHROMASIA (NORMAL)
--- NOTE | 2024-04-05 11:30 | XRAY Report ---
PROCEDURE: XR Chest 1V INDICATIONS: dyspnea, cough, fever TECHNIQUE: One view of the chest was acquired. COMPARISON: 08/09/2023. FINDINGS: Surgical changes and devices: None. Lungs and pleura: There is pulmonary vascular congestion. Increased interstitial lung markings are n oted bilaterally. Small left pleural effusion is likely present with blunting of left costophrenic an gle. No gross pneumothorax. Mediastinum: Mediastinal contours appear normal. Heart size is enlarged. Bones and chest wall: No suspicious bony lesions. Overlying soft tissues appear unremarkable. IMPRESSION: Finding is suggestive of pulmonary vascular congestion and pulmonary edema. Given patient 's clinical history of fever, superimposed interstitial infiltrates are likely present. Small left pl eural effusion. No pneumothorax. Reviewed by: Erick Barraza MD on 04/05/2024 11:29 AM PST Approved by: Erick Barraza MD on 04/05/2024 11:29 AM PST Station ID: [id number]
[2024-04-05] MEDS: levoFLOXacin 750 MG/150 ML 750 MG/150 ML BAG IV STA (11:33)
[2024-04-05] MEDS: DEXAMETHASONE 10 MG/ML VIAL IVP STA (11:33)
[2024-04-05] MEDS: FUROSEMIDE 40 MG/4 ML VIAL IVP STA (11:45)
[2024-04-05 12:04] LABS: B. PARAPERTUSSIS- RESP PCR PAN NOT DETECTED; B. PERTUSSIS- RESP PCR PANEL NOT DETECTED; C. PNEUMONIAE- RESP PCR PANEL NOT DETECTED; CORONAVIRUS 229E-RESP PCR NOT DETECTED; CORONAVIRUS HKU1-RESP PCR NOT DETECTED; CORONAVIRUS NL63-RESP PCR NOT DETECTED; CORONAVIRUS OC43-RESP PCR NOT DETECTED; HUMAN METAPNEUMOVIRUS NOT DETECTED; INFLUENZA A- RESP PCR PANEL NOT DETECTED; INFLUENZA B - RESP PCR PANEL NOT DETECTED; M. PNEUMONIAE- RESP PCR PANEL NOT DETECTED; PARAINFLUENZA VIRUS 1 NOT DETECTED; PARAINFLUENZA VIRUS 2 NOT DETECTED; PARAINFLUENZA VIRUS 4 NOT DETECTED; RHINOVIRUS/ENTEROVIRUS NOT DETECTED; RSV- RESP PCR PANEL NOT DETECTED; SARS-CoV-2 -RESP PCR PANEL NOT DETECTED
[2024-04-05] MEDS ORDERED: ZOLPIDEM 5 MG TABLET PO PRN (12:18)
[2024-04-05] MEDS ORDERED: ONDANSETRON ODT 4 MG TABLET TL PRN (12:18)
[2024-04-05] MEDS ORDERED: polyethylene glycoL 3350 17 GM PACKET PO PRN (12:21)
[2024-04-05] MEDS ORDERED: NITROGLYCERIN SL 0.4 MG TABLET SL PRN (12:21)
[2024-04-05] MEDS ORDERED: NYSTATIN 15 GM TOP PRN (12:21)
[2024-04-05] MEDS ORDERED: CALCIUM CARBONATE CHEW 500 MG TABLET PO PRN ×2 (12:21)
[2024-04-05] MEDS ORDERED: SENNA 8.6 MG TABLET PO PRN (12:21)
[2024-04-05] MEDS ORDERED: DICLOFENAC SODIUM 1% GEL 50 GM TUBE TOP PRN (12:21)
[2024-04-05] MEDS ORDERED: diphenhydrAMINE 25 MG CAPSULE PO PRN (12:21)
[2024-04-05] MEDS ORDERED: FAMOTIDINE 20 MG TABLET PO PRN (12:21)
[2024-04-05] MEDS ORDERED: BISACODYL 10 MG SUPP PR PRN (12:21)
[2024-04-05] MEDS ORDERED: IPRATROPIUM/ALBUTEROL 3 ML NEB INH PRN (12:31)
--- NOTE | 2024-04-05 12:48 | HISTORY & PHYSICAL EXAMINATION ---
Chief Complaint Chief Complaint Chief Complaint: Shortness of breath History of Present Illness Admitted From Admitted From:: group home History of Present Illness HPI Comment/Other: Information was acquired from ED physician and previous chart notes. Patient is just moaning and barely answering questions. This is a 74 old female, resident of [facility], with a past medical history of Diabetes type 2, COPD on 2 L home oxygen, heart failure with reduced EF, CAD and morbid obesity who presented to the ER Due to worsening shortness of breath. Apparently staff noticed patient having a cough and worsening shortness of breath at rest starting yesterday which worsened overnight. EMS was called and patient was transferred to the ED. Patient denies genital pain, denies nausea and vomiting. In the ED laboratory values indicated Sepsis, pt is febrile, Leukocytosis, elevated lactic acid, Elevated AST/ALT, elevated BNP, sinus tach. Chest x-ray indicates increased vascularity most likely pulm edema as well as underlying pneumonia. Patient was given Levaquin p.o. in the ER. ABGs pending. Patient is full code Meds/Allgy Home Medications Ambulatory Orders Medication Instructions Recorded Confirmed nitroglycerin 0.4 mg sublingual 0.4 mg sublingual Q5M PRN Chest 06/22/19 04/05/24 tablet Pain albuterol sulfate 90 mcg/actuation 2 puff PO QID PRN Shortness Of 06/28/22 04/05/24 aerosol inhaler (Ventolin HFA) Air/Wheezing acetaminophen 325 mg tablet 650 mg (2 x 325 mg) PO Q4HR PRN 10/18/22 04/05/24 Pain 1 to 4, or Fever aspirin 81 mg tablet,delayed 81 mg PO DAILY CAD hx ##0 10/18/22 04/05/24 release atorvastatin 40 mg tablet 40 mg PO QPM hyperlipidemia ##0 10/18/22 04/05/24 clopidogrel 75 mg tablet 75 mg PO DAILY for CAD 10/18/22 04/05/24 cyanocobalamin (vitamin B-12) 500 500 mcg PO DAILY low B12 10/18/22 04/05/24 mcg tablet spironolactone 25 mg tablet 25 mg PO DAILY chornic systolic 10/18/22 04/05/24 (Aldactone) chf ##0 Lidocaine Patch 4% [Lidocaine Pain 1 patch topical DAILY PRN Pain 1-4 07/31/23 04/05/24 Relief] Mag Hydrox/Aluminum Hyd/Simeth 30 ml PO Q4H PRN Indigestion 07/31/23 04/05/24 [Alum-Mag Hydroxide-Simeth Cup] bisacodyl 10 mg rectal suppository 10 mg RC DAILY PRN Constipation 07/31/23 04/05/24 cranberry extract 500 mg tablet 2,000 mg PO DAILY 07/31/23 04/05/24 diclofenac sodium 1 % topical gel 1 applic topical DAILY PRN Itching 07/31/23 04/05/24 (Arthritis Pain (diclofenac)) diphenhydramine HCl 25 mg capsule 25 mg PO BID PRN Allergy Symptoms 07/31/23 04/05/24 (Banophen) ipratropium 0.5 mg-albuterol 3 mg 3 ml NEB Q6H PRN Wheezing 07/31/23 04/05/24 (2.5 mg base)/3 mL nebulization soln metoprolol succinate 25 mg 12.5 mg PO DAILY 07/31/23 04/05/24 tablet,extended release 24 hr pantoprazole 20 mg tablet,delayed 20 mg PO DAILY 07/31/23 04/05/24 release (Protonix) potassium chloride 10 mEq 10 meq PO DAILY 07/31/23 04/05/24 capsule,extended release sennosides 8.6 mg tablet (Senna 17.2 mg PO DAILY PRN Constipation 07/31/23 04/05/24 Lax) sodium chloride 1,000 mg soluble 1 tab PO OAW 07/31/23 04/05/24 tablet furosemide 40 mg tablet 40 mg PO DAILY 08/01/23 04/05/24 glipizide 5 mg tablet 5 mg PO QDBREAKFAST 08/01/23 04/05/24 ondansetron 4 mg disintegrating 4 mg PO Q6H PRN Nausea / Vomiting 08/01/23 04/05/24 tablet polyethylene glycol 3350 17 gram 17 g PO DAILY PRN Constipation 08/01/23 04/05/24 oral powder packet calcium carbonate 500 mg (2.5 x 200 mg calcium (500 08/03/23 04/05/24 mg)) PO BID PRN Indigestion nystatin 100,000 unit/gram topical 15 applic topical BID PRN inna 08/03/23 04/05/24 powder (Nyamyc) intertrigo carboxymethylcellulose sodium 1 % 1 drp ophthalmic (eye) Q6H PRN dry 04/05/24 04/05/24 eye drops (Artificial Tears eye(s) (carboxymethylcellulose)) guaifenesin 600 mg tablet, 600 mg PO BID PRN congestion 04/05/24 04/05/24 extended release 12 hr hydrocodone 5 mg-acetaminophen 325 1 tab PO Q12H PRN pain 04/05/24 04/05/24 mg tablet lisinopril 2.5 mg tablet 2.5 mg PO DAILY 04/05/24 04/05/24 loperamide 2 mg capsule 2 mg PO Q OTHER DAY Diarrhea 04/05/24 04/05/24 mineral oil (Fleet Mineral Oil 118 ml [place] DAILY PRN constipation 04/05/24 04/05/24 enema) naloxone 4 mg/actuation nasal 4 mg intranasal Q2M 04/05/24 04/05/24 spray (Narcan) sertraline 25 mg tablet 75 mg PO DAILY 04/05/24 04/05/24 zinc oxide 20 % topical ointment 1 applic topical PRN PRN skin 04/05/24 04/05/24 (Endit (zinc oxide)) irritation Allergies Allergies Allergy/AdvReac Type Severity Reaction Status Date / Time Sulfa (Sulfonamide Allergy Hives Verified 08/09/23 14:00 Antibiotics) [facility] Social History Social History (Updated 04/05/24 @ 10:59 by Gretta Torres RN) Smoking Status: Former smoker If you are a former smoker, when did you quit? (Date/Year): 2019 Number of Years Smoked: 55 How many cigarettes a day do you smoke? (20 cigarettes=1 Pk): 20 Do you dip or chew tobacco?: No Patient requests smoking cessation consult: No Initiate information on smoking cessation: No Living arrangement: At home (rental property on her brother's property) Living Condition: Alone (Brother lives next door.) Relationship: Caregiver Level: Dependent Home Mobility Equipment: Walker Do you feel safe in your home environment?: Yes Suffered physical, verbal, emotional, or financial abuse?: No History of Abuse: No ETOH Use: None Substance Use: denies use POLST Patient has POLST: No POLST Status: WantsDNI/but CPR&defib OK Review of Systems Status of ROS: 10 or more systems reviewed and unremarkable except as noted in history and below Exam Exam Patient is in Slight distress, Constitutional normal general appearance [facility] normocephalic Eyes PERRL and conjunctivae normal Neck/C-Spine visual inspection normal and trachea midline Chest inspection of chest normal and palpation of chest normal Respiratory Breath sounds decreased bilaterally Cardiovascular Sinus tach, no murmurs Gastrointestinal abdomen normal to inspection and abdomen soft to palpation Extremities normal to inspection and normal to palpation 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 and no movement abnormality noted Psychiatry mental status grossly normal and oriented x3 Skin skin color normal and no rash Conclusion/Plan Problem List (1) Sepsis: Plan: Sepsis likely secondary to healthcare acquiredpneumonia Start cefepime, vancomycin dosed per pharmacy, trend lactate Patient Is not a candidate for aggressive IV hydration due to her CHF exacerbation Qualifiers: Sepsis acute organ dysfunction status: without acute organ dysfunction Sepsis type: sepsis due to unspecified organism Qualified Code(s): A41.9 - Sepsis, unspecified organism (2) Acute respiratory failure with hypoxia: Plan: Start patient on high flow O2, follow ABG, As needed DuoNebs, Lasix patient is at risk for intubation. (3) Heart failure with reduced ejection fraction: Plan: Exacerbation of heart failure. Lasix IV twice daily, monitor urine output Hold beta-blockers due to borderline low blood pressure. Obtain echo (4) Acute exacerbation of chronic obstructive pulmonary disease: Plan: DuoNebs, wean of O2 to to baseline as tolerated (5) Pulmonary edema: Plan: On chest x-ray patient has increased vascularity most likely indicating pulm edema. BNP is up to 1700. Continue Lasix, Monitor respiratory status Qualifiers: Chronicity: acute Qualified Code(s): J81.0 - Acute pulmonary edema (6) Healthcare-associated pneumonia: Plan: Follow respiratory viral panel, follow MRSA screen. Start patient on vancomycin and cefepime. Monitor lactate (7) Lactic acidosis: Plan: Due to sepsis, Patient is a high risk for septic shock, monitor lactate Patient not a candidate for aggressive IV hydration due to CHF exacerbation (8) Elevated liver enzymes: Plan: Likely secondary to sepsis. Monitor (9) Type 2 diabetes mellitus: Plan: insulin sliding scale, obtain A1c Lab Results Lab results reviewed: Yes 04/05/24 10:52 04/05/24 10:52 Diagnostic Imaging Results Diagnostic Imaging Results: positive Final report reviewed
[2024-04-05] MEDS ORDERED: LACTATED RINGERS 1,000 ML IV SCH (13:00)
--- NOTE | 2024-04-05 13:42 | PHARMACY PROGRESS NOTE ---
Best Possible Medication History Admit Date and Time: 04/05/24 1241 Home Medications Medication Instructions Recorded Confirmed Type nitroglycerin 0.4 mg sublingual 0.4 mg sublingual Q5M PRN Chest 06/22/19 04/05/24 History tablet Pain albuterol sulfate 90 mcg/actuation 2 puff PO QID PRN Shortness Of 06/28/22 04/05/24 History aerosol inhaler (Ventolin HFA) Air/Wheezing acetaminophen 325 mg tablet 650 mg (2 x 325 mg) PO Q4HR PRN 10/18/22 04/05/24 Rx Pain 1 to 4, or Fever aspirin 81 mg tablet,delayed 81 mg PO DAILY CAD hx ##0 10/18/22 04/05/24 Rx release atorvastatin 40 mg tablet 40 mg PO QPM hyperlipidemia ##0 10/18/22 04/05/24 Rx clopidogrel 75 mg tablet 75 mg PO DAILY for CAD 10/18/22 04/05/24 Rx cyanocobalamin (vitamin B-12) 500 500 mcg PO DAILY low B12 10/18/22 04/05/24 Rx mcg tablet spironolactone 25 mg tablet 25 mg PO DAILY chornic systolic 10/18/22 04/05/24 Rx (Aldactone) chf ##0 Lidocaine Patch 4% [Lidocaine Pain 1 patch topical DAILY PRN Pain 1-4 07/31/23 04/05/24 History Relief] Mag Hydrox/Aluminum Hyd/Simeth 30 ml PO Q4H PRN Indigestion 07/31/23 04/05/24 History [Alum-Mag Hydroxide-Simeth Cup] bisacodyl 10 mg rectal suppository 10 mg RC DAILY PRN Constipation 07/31/23 04/05/24 History cranberry extract 500 mg tablet 2,000 mg PO DAILY 07/31/23 04/05/24 History diclofenac sodium 1 % topical gel 1 applic topical BID PRN pain 07/31/23 04/05/24 History (Arthritis Pain (diclofenac)) diphenhydramine HCl 25 mg capsule 25 mg PO BID PRN Allergy Symptoms 07/31/23 04/05/24 History (Banophen) ipratropium 0.5 mg-albuterol 3 mg 3 ml NEB Q6H PRN Wheezing 07/31/23 04/05/24 History (2.5 mg base)/3 mL nebulization soln metoprolol succinate 25 mg 12.5 mg PO DAILY 07/31/23 04/05/24 History tablet,extended release 24 hr pantoprazole 20 mg tablet,delayed 20 mg PO DAILY 07/31/23 04/05/24 History release (Protonix) potassium chloride 10 mEq 10 meq PO DAILY 07/31/23 04/05/24 History capsule,extended release sennosides 8.6 mg tablet (Senna 17.2 mg PO DAILY PRN Constipation 07/31/23 04/05/24 History Lax) sodium chloride 1,000 mg soluble 1 tab PO OAW 07/31/23 04/05/24 History tablet furosemide 40 mg tablet 40 mg PO DAILY 08/01/23 04/05/24 History glipizide 5 mg tablet 5 mg PO QDBREAKFAST 08/01/23 04/05/24 History ondansetron 4 mg disintegrating 4 mg PO Q6H PRN Nausea / Vomiting 08/01/23 04/05/24 History tablet polyethylene glycol 3350 17 gram 17 g PO DAILY PRN Constipation 08/01/23 04/05/24 History oral powder packet calcium carbonate 500 mg (2.5 x 200 mg calcium (500 08/03/23 04/05/24 Rx mg)) PO BID PRN Indigestion nystatin 100,000 unit/gram topical 15 applic topical BID PRN inna 08/03/23 04/05/24 Rx powder ([facility]) intertrigo carboxymethylcellulose sodium 1 % 1 drp ophthalmic (eye) Q6H PRN dry 04/05/24 04/05/24 History eye drops (Artificial Tears eye(s) (carboxymethylcellulose)) guaifenesin 600 mg tablet, 600 mg PO BID PRN congestion 04/05/24 04/05/24 History extended release 12 hr hydrocodone 5 mg-acetaminophen 325 1 tab PO Q12H PRN pain 04/05/24 04/05/24 History mg tablet lisinopril 2.5 mg tablet 2.5 mg PO DAILY 04/05/24 04/05/24 History loperamide 2 mg capsule 2 mg PO Q OTHER DAY Diarrhea 04/05/24 04/05/24 History mineral oil (Fleet Mineral Oil 118 ml TN DAILY PRN constipation 04/05/24 04/05/24 History enema) naloxone 4 mg/actuation nasal 4 mg intranasal Q2M 04/05/24 04/05/24 History spray (Narcan) sertraline 25 mg tablet 75 mg PO DAILY 04/05/24 04/05/24 History zinc oxide 20 % topical ointment 1 applic topical PRN PRN skin 04/05/24 04/05/24 History (Endit (zinc oxide)) irritation Processed by: Pharmacy Medications reviewed in ED?: No Medication History completed: Yes Patient Interview: Pt unable to participate Secondary Source(s): Facility MAR as ONLY source (MAR FROM [facility]) [facility] Statement: As the person ultimately responsible for medication therapy, providers are able to order a medication from an existing home medication list in [facility] via the "Reconcile Routine" prior to Confirmation of that medication by business support. Such practice is discouraged except when the physician, in their clinical judgment, deems that a medical need exists for a medication without regard to previous use.
[2024-04-05] MEDS: ENOXAPARIN 40 MG/0.4 ML SYRINGE SUBQ SCH (13:45)
[2024-04-05] MEDS: PERFLUTREN LIPID MICROSPHERES 1.65 MG/1.5 ML VIAL IVP ONE (13:45)
[2024-04-05] MEDS: CEFEPIME 1 GM in SODIUM CHLORIDE 0.9% MINIBAG 100 ML IV SCH (13:45)
[2024-04-05] MEDS ORDERED: MAG HYDROX/AL HYDROX/SIMETH 30 ML UDC PO PRN (13:54)
--- NOTE | 2024-04-05 14:25 | PHARMACY PROGRESS NOTE ---
Vancomycin Therapy Monitoring Vancomycin Therapy Goals Treatment Indication: sepsis Vancomycin Target Range: Vancomycin AUC Target Range 400-600 mcg*h/ml Plan: Vancomycin Loading Dose (GM, if applicable): 2G x1 New Regimen (Enter new dose and interval): 1g q24h starting 04/06 @ 1500 Vancomycin Level Recommendation: Vancomycin Level Recommendation (after 3rd dose if continuing. anticipated AUC 430)
[2024-04-05 14:30] LABS: ESTIMATED AVERAGE GLUCOSE 105 mg/dL (70-100); HEMOGLOBIN A1c% 5.3 % (4.27-6.07)
[2024-04-05] MEDS: VANCOMYCIN INJ 2 GM in SODIUM CHLORIDE 0.9% 500 ML IV ONE (14:32)
[2024-04-05] MEDS: ALBUTEROL NEB 2.5 MG/3 ML INH ONE (14:35)
[2024-04-05] MEDS: NOREPINEPHRINE/0.9 % NS 8 MG/250 ML BAG IV SCH (15:03)
[2024-04-05] MEDS: SODIUM CHLORIDE FLUSH 0.9% 10 ML SYRINGE IVP SCH (16:54)
[2024-04-05] MEDS: INSULIN LISPRO 300 UNIT/3 ML PEN SUBQ SCH (17:09)
[2024-04-05] MEDS: FUROSEMIDE 20 MG/2 ML VIAL IVP SCH (20:39)
[2024-04-05] MEDS: ATORVASTATIN 40 MG TABLET PO SCH (20:45)
[2024-04-05] MEDS: CARBOXYMETHYLCELLULOSE OPHTH DROPS EACHEYE PRN (21:41)
[2024-04-05] MEDS: LOPERAMIDE 2 MG CAPSULE PO PRN (21:42)
[2024-04-06] MEDS: PANTOPRAZOLE 40 MG TABLET PO SCH (06:23)
[2024-04-06 07:10] LABS: BASOPHILS % (AUTO) 0.3 %; EOSINOPHILS % (AUTO) 28.2 %; HGB - HEMOGLOBIN 11.2 g/dL (12.0-16.0); MEAN CORPUSCULAR HEMOGLOBIN 25.2 pg (27.0-31.0); MEAN CORPUSCULAR HGB CONC 30.3 g/dL (32.0-36.0); MEAN CORPUSCULAR VOLUME 83.1 fL (81.0-99.0); MEAN PLATELET VOLUME 11.1 fL (7.9-10.8); MONOCYTES % (AUTO) 2.5 %; NEUTROPHILS % (AUTO) 64.2 %; PLT - PLATELET COUNT 562 10^3/uL (130-450); RED BLOOD COUNT 4.45 10^6/uL (4.20-5.40); RED CELL DISTRIBUTION WIDTH 14.9 % (12.0-15.0); WHITE BLOOD COUNT 28.6 x10^3/uL (4.8-10.8)
[2024-04-06 07:21] LABS: CALCIUM 8.7 mg/dL (8.5-10.3); CREATININE 1.2 mg/dL (0.6-1.3); POTASSIUM 3.5 mmol/L (3.5-4.5)
[2024-04-06 07:23] LABS: ABNORMAL LYMPHS % (MANUAL) 0 %
[2024-04-06 07:39] LABS: BAND NEUTROPHILS % (MANUAL) 3 %; EOSINOPHILS # (MANUAL) 0.6 10^3/uL (0-0.7); LYMPHOCYTES # (MANUAL) 1.1 10^3/uL (1.5-3.5); LYMPHOCYTES % (MANUAL) 4 %; MONOCYTES # (MANUAL) 1.1 10^3/uL (0.0-1.0); NEUTROPHILS # (MANUAL) 25.7 10^3/uL (1.5-6.6); PLATELET MORPHOLOGY A (NORMAL); RBC MORPHOLOGY (MULTIPLE) NORMAL APPEARANCE (NORMAL)
[2024-04-06 07:40] LABS: DIFFERENTIAL COMMENT MANUAL DIFFERENTIAL; PLATELET ESTIMATE, MANUAL INCREASED (>450,000) (NORMAL); WBC MORPHOLOGY (MULTIPLE) 1+ TOXIC GRANULATION (NORMAL)
--- NOTE | 2024-04-06 08:15 | PROVIDER PROGRESS NOTE ---
Subjective Prog Note Date Prog Note Date: 04/06/24 Prog Note Time: 08:02 Subjective Subjective: Information was acquired from ED physician and previous chart notes. Patient is just moaning and barely answering questions. This is a 74 old female, resident of [facility], with a past medical history of Diabetes type 2, COPD on 2 L home oxygen, heart failure with reduced EF, CAD and morbid obesity who presented to the ER Due to worsening shortness of breath. Apparently staff noticed patient having a cough and worsening shortness of breath at rest starting yesterday which worsened overnight. EMS was called and patient was transferred to the ED. Patient denies genital pain, denies nausea and vomiting. In the ED laboratory values indicated Sepsis, pt is febrile, Leukocytosis, elevated lactic acid, Elevated AST/ALT, elevated BNP, sinus tach. Chest x-ray indicates increased vascularity most likely pulm edema as well as underlying pneumonia. Patient was given Levaquin p.o. in the ER. ABGs pending. 04/06/2024: Patient changed CODE STATUS to partial code. No CPR, okay to intubate. Patient states that she feels much better than yesterday, Wants to eat breakfast. Patient states respiratory distress has resolved. Current Medications Current Medications Current Medications: Current Medications Generic Name Dose Route Start Last Admin Trade Name Freq PRN Reason Stop Dose Admin Acetaminophen 650 mg 04/05/24 12:18 Acetaminophen 325 Mg Tablet PO Q4HR PRN Pain 1 to 4, or Fever Al Hydroxide/Mg Hydroxide 30 ml 04/05/24 13:54 Mag Hydrox/Al Hydrox/Simeth 30 Ml Udc PO Q4HR PRN INDIGESTION Albuterol/Ipratropium 3 ml 04/05/24 12:31 Ipratropium/Albuterol 3 Ml Neb INH Q4HR PRN Wheezing Atorvastatin Calcium 40 mg 04/05/24 21:00 04/05/24 20:45 Atorvastatin 40 Mg Tablet PO 40 mg QPM BETTYE Administration Bisacodyl 10 mg 04/05/24 12:21 Bisacodyl 10 Mg Supp CA DAILY PRN Constipation Calcium Carbonate/Glycine 500 mg 04/05/24 12:21 Calcium Carbonate Chew 500 Mg Tablet PO BID PRN Indigestion Carboxymethylcellulose 1 drops 04/05/24 21:05 04/05/24 21:41 Carboxymethylcellulose Ophth Drops EACHEYE 1 drops PRN PRN Administration Dry Eye Clopidogrel Bisulfate 75 mg 04/06/24 09:00 Clopidogrel 75 Mg Tablet PO DAILY [facility] Cyanocobalamin 500 mcg 04/06/24 09:00 Cyanocobalamin 500 Mcg Tablet PO DAILY [facility] Diclofenac Sodium 2 gm 04/05/24 12:21 Diclofenac Sodium 1% Gel 50 Gm Tube TOP BID PRN PAIN 1-4 Diphenhydramine HCl 25 mg 04/05/24 12:21 Diphenhydramine 25 Mg Capsule PO BID PRN Allergy Symptoms Enoxaparin Sodium 40 mg 04/05/24 13:00 04/05/24 13:45 Enoxaparin 40 Mg/0.4 Ml Syringe SUBQ 40 mg DAILY BETTYE Administration Furosemide 20 mg 04/05/24 21:00 04/05/24 20:39 Furosemide 20 Mg/2 Ml Vial IVP 20 mg BID BETTYE Administration Cefepime HCl 1 gm/ Sodium 100 mls @ 200 mls/hr 04/05/24 13:00 04/05/24 21:42 Chloride IV Infused BID [facility] Infusion Vancomycin HCl 1 gm/ Sodium 250 mls @ 167 mls/hr 04/06/24 15:00 Chloride IV Q24H BETTYE Norepinephrine/Sodium Chloride 8 mg in 250 mls @ 7.5 mls/hr 04/05/24 15:00 04/06/24 07:36 Levophed 8 Mg/250-0.9% Nacl IV 2 mcg/min .[id number] BETTYE 3.75 mls/hr Titration Protocol 4 MCG/MIN Insulin Human Lispro 1 - 5 unit 04/05/24 17:00 04/05/24 20:42 Insulin Lispro 300 Unit/3 Ml Pen SUBQ 1 unit 0800,1200,1700,2100 [facility] Administration Protocol Lidocaine 1 patch 04/05/24 13:51 Lidocaine Patch 4% TOP DAILY PRN Pain 1-4 Loperamide HCl 2 mg 04/05/24 12:21 04/05/24 21:42 Loperamide 2 Mg Capsule PO 2 mg QID PRN Administration Diarrhea Multi-Ingredient Ointment 1 applic 04/05/24 21:44 Zinc Oxide 20% Oint 30 Gm Tube TOP PRN PRN Skin Care Nitroglycerin 0.4 mg 04/05/24 12:21 Nitroglycerin Sl 0.4 Mg Tablet SL Q5M PRN Chest Pain Nystatin 15 applic 04/05/24 12:21 Nystatin Powder 15 Gm TOP BID PRN inna intertrigo Ondansetron HCl 4 mg 04/05/24 12:18 Ondansetron Odt 4 Mg Tablet TL Q6HR PRN Nausea / Vomiting Pantoprazole Sodium 40 mg 04/06/24 07:00 04/06/24 06:23 Pantoprazole 40 Mg Tablet PO 40 mg QDAC BETTYE Administration Polyethylene Glycol 17 gm 04/05/24 12:21 Polyethylene Glycol 3350 17 Gm Packet PO DAILY PRN Constipation Potassium Chloride 10 meq 04/06/24 09:00 Potassium Chloride 10 Meq Capsule PO DAILY BETTYE Senna 17.2 mg 04/05/24 12:21 Senna 8.6 Mg Tablet PO DAILY PRN Constipation Sertraline HCl 75 mg 04/06/24 09:00 Sertraline 25 Mg Tablet PO DAILY BETTYE Sodium Chloride 10 ml 04/05/24 12:18 Sodium Chloride Flush 0.9% 10 Ml Syringe IVP PRN PRN NEEDED PER PROVIDER ORDERS Sodium Chloride 10 ml 04/05/24 17:00 04/06/24 06:23 Sodium Chloride Flush 0.9% 10 Ml Syringe IVP 10 ml 0100,0900,1700 BETTYE Administration Spironolactone 25 mg 04/06/24 09:00 Spironolactone 25 Mg Tablet PO DAILY [facility] Zolpidem Tartrate 5 mg 04/05/24 12:18 Zolpidem 5 Mg Tablet PO QPM PRN Insomnia Objective Vital Signs/Intake & Output Reviewed Vital Signs: Yes Vital Signs: Vital Signs x48h Temp Pulse Resp BP Pulse Ox O2 Flow Rate 04/06/24 07:00 36.9 C 58 L 19 124/71 96 2 04/06/24 06:00 58 L 19 120/80 95 2 04/06/24 05:00 58 L 20 132/45 H 94 2 04/06/24 04:00 58 L 31 H 116/51 L 95 2 04/06/24 03:00 62 24 97/60 93 3 04/06/24 02:00 58 L 16 110/38 L 97 50 04/06/24 01:00 59 L 24 116/36 L 97 50 Intake & Output: Intake & Output 12/24/24 12/25/24 12/26/24 12/27/24 23:59 23:59 23:59 23:59 Intake Total 893 / 893 120 / 120 Output Total 615 / 615 290 / 290 Balance 278 / 278 -170 / -170 Weight (kg) 95.5 kg 99 kg Objective General Appearance: positive No acute distress and Alert Eyes Bilateral: positive Normal inspection and PERRL ENT: positive ENT inspection nml Neck: positive Nml inspection and Trachea midline Respiratory: positive Chest non-tender and No respiratory distress Cardiovascular: positive Regular rate & rhythm and No murmur Abdomen: positive Non-tender and No organomegaly Back: positive Nml inspection Skin: positive Color nml and No rash Extremities: positive Non-tender and Full ROM Neurologic/Psychiatric: positive Oriented x3 and CN's nml (2-12) Lab Results 04/06/24 04:20 04/06/24 04:20 Other Labs: Lab Results x24hrs 04/06/24 04/06/24 04/06/24 Range/Units 07:49 04:20 04:12 WBC 28.6 H (4.8-10.8) x10^3/uL RBC 4.45 (4.20-5.40) 10^6/uL Hgb 11.2 L (12.0-16.0) g/dL Hct 37.0 (37.0-47.0) % MCV 83.1 (81.0-99.0) fL MCH 25.2 L (27.0-31.0) pg MCHC 30.3 L (32.0-36.0) g/dL RDW 14.9 (12.0-15.0) % Plt Count 562 H (130-450) 10^3/uL MPV 11.1 H (7.9-10.8) fL Neut # (Auto) Not Reportable (1.5-6.6) 10^3/uL Lymph # (Auto) Not Reportable (1.5-3.5) 10^3/uL [place] # (Auto) Not Reportable (0.0-1.0) 10^3/uL Eos # (Auto) Not Reportable (0.0-0.7) 10^3/uL Baso # (Auto) Not Reportable (0.0-0.1) 10^3/uL Absolute Nucleated RBC Not Reportable x10^3/uL Total Counted 100 Band Neuts % (Manual) 3 (0 - 10) % Abnorm Lymph % (Manual) 0 % Nucleated RBC % Not Reportable /100WBC Neutrophils # (Manual) 25.7 H (1.5-6.6) 10^3/uL Lymphocytes # (Manual) 1.1 L (1.5-3.5) 10^3/uL Monocytes # (Manual) 1.1 H (0.0-1.0) 10^3/uL Eosinophils # (Manual) 0.6 (0-0.7) 10^3/uL Basophils # (Manual) 0.0 (0-0.1) 10^3/uL Differential Comment MANUAL DIFFERENTIAL Manual Slide Review WBC Morphology 1+ TOXIC GRANULATION (NORMAL) Platelet Estimate INCREASED (>450,000) (NORMAL) Platelet Morphology A (NORMAL) RBC Morph Micro Appear NORMAL APPEARANCE (NORMAL) Sodium 137 (135-145) mmol/L Potassium 3.5 (3.5-4.5) mmol/L Chloride 99 L (101-111) mmol/L Carbon Dioxide 26 (21-32) mmol/L Anion Gap 12.0 (6-13) BUN 28 H (6-20) mg/dL Creatinine 1.2 (0.6-1.3) mg/dL Estimated GFR (MDRD) 44 L (>89) Glucose 179 H (74-104) mg/dL POC Whole Bld Glucose 113 (70-100) mg/dL Estimat Average Glucose (70-100) mg/dL Hemoglobin A1c % (4.27-6.07) % Lactic Acid 1.1 (0.5-2.2) mmol/L Calcium 8.7 (8.5-10.3) mg/dL Magnesium (1.7-2.3) mg/dL Total Bilirubin (0.2-1.0) mg/dL AST (10-42) IU/L ALT (10-60) IU/L Alkaline Phosphatase (42-121) IU/L B-Natriuretic Peptide (5-100) pg/mL Total Protein (6.4-8.9) g/dL Albumin (3.2-5.5) g/dL Globulin (2.1-4.2) g/dL Albumin/Globulin Ratio (1.0-2.2) Lipase (11-82) U/L Nasal Adenovirus (PCR) Nasal B. parapertussis DNA (PCR) Nasal Coronavir 229E PCR Nasal Coronavir HKU1 PCR Nasal Coronavir NL63 PCR Nasal Coronavir OC43 PCR Nasal Enterovir/Rhinovir PCR Nasal Influenza B PCR Nasal Influenza A PCR Nasal Parainfluen 1 PCR Nasal Parainfluen 2 PCR Nasal Parainfluen 3 PCR Nasal Parainfluen 4 PCR Nasal RSV (PCR) Nasal Screen MRSA (PCR) (NEGATIVE) Nasal B.pertussis DNA PCR Nasal C.pneumoniae (PCR) [place] Human Metapneumo PCR Nasal M.pneumoniae (PCR) Nasal SARS-CoV-2 (PCR) 04/05/24 04/05/24 04/05/24 Range/Units 21:00 20:42 17:03 WBC (4.8-10.8) x10^3/uL RBC (4.20-5.40) 10^6/uL Hgb (12.0-16.0) g/dL Hct (37.0-47.0) % MCV (81.0-99.0) fL MCH (27.0-31.0) pg MCHC (32.0-36.0) g/dL RDW (12.0-15.0) % Plt Count (130-450) 10^3/uL MPV (7.9-10.8) fL Neut # (Auto) (1.5-6.6) 10^3/uL Lymph # (Auto) (1.5-3.5) 10^3/uL [place] # (Auto) (0.0-1.0) 10^3/uL Eos # (Auto) (0.0-0.7) 10^3/uL Baso # (Auto) (0.0-0.1) 10^3/uL Absolute Nucleated RBC x10^3/uL Total Counted Band Neuts % (Manual) (0 - 10) % Abnorm Lymph % (Manual) % Nucleated RBC % /100WBC Neutrophils # (Manual) (1.5-6.6) 10^3/uL Lymphocytes # (Manual) (1.5-3.5) 10^3/uL Monocytes # (Manual) (0.0-1.0) 10^3/uL Eosinophils # (Manual) (0-0.7) 10^3/uL Basophils # (Manual) (0-0.1) 10^3/uL Differential Comment Manual Slide Review WBC Morphology (NORMAL) Platelet Estimate (NORMAL) Platelet Morphology (NORMAL) RBC Morph Micro Appear (NORMAL) Sodium (135-145) mmol/L Potassium (3.5-4.5) mmol/L Chloride (101-111) mmol/L Carbon Dioxide (21-32) mmol/L Anion Gap (6-13) BUN (6-20) mg/dL Creatinine (0.6-1.3) mg/dL Estimated GFR (MDRD) (>89) Glucose (74-104) mg/dL POC Whole Bld Glucose 153 (70-100) mg/dL Estimat Average Glucose (70-100) mg/dL Hemoglobin A1c % (4.27-6.07) % Lactic Acid 1.5 2.0 (0.5-2.2) mmol/L Calcium (8.5-10.3) mg/dL Magnesium (1.7-2.3) mg/dL Total Bilirubin (0.2-1.0) mg/dL AST (10-42) IU/L ALT (10-60) IU/L Alkaline Phosphatase (42-121) IU/L B-Natriuretic Peptide (5-100) pg/mL Total Protein (6.4-8.9) g/dL Albumin (3.2-5.5) g/dL Globulin (2.1-4.2) g/dL Albumin/Globulin Ratio (1.0-2.2) Lipase (11-82) U/L Nasal Adenovirus (PCR) Nasal B. parapertussis DNA (PCR) Nasal Coronavir 229E PCR Nasal Coronavir HKU1 PCR Nasal Coronavir NL63 PCR Nasal Coronavir OC43 PCR Nasal Enterovir/Rhinovir PCR Nasal Influenza B PCR Nasal Influenza A PCR Nasal Parainfluen 1 PCR Nasal Parainfluen 2 PCR Nasal Parainfluen 3 PCR Nasal Parainfluen 4 PCR Nasal RSV (PCR) Nasal Screen MRSA (PCR) (NEGATIVE) Nasal B.pertussis DNA PCR Nasal C.pneumoniae (PCR) [place] Human Metapneumo PCR Nasal M.pneumoniae (PCR) Nasal SARS-CoV-2 (PCR) 04/05/24 04/05/24 04/05/24 Range/Units 16:47 13:17 12:57 WBC (4.8-10.8) x10^3/uL RBC (4.20-5.40) 10^6/uL Hgb (12.0-16.0) g/dL Hct (37.0-47.0) % MCV (81.0-99.0) fL MCH (27.0-31.0) pg MCHC (32.0-36.0) g/dL RDW (12.0-15.0) % Plt Count (130-450) 10^3/uL MPV (7.9-10.8) fL Neut # (Auto) (1.5-6.6) 10^3/uL Lymph # (Auto) (1.5-3.5) 10^3/uL [place] # (Auto) (0.0-1.0) 10^3/uL Eos # (Auto) (0.0-0.7) 10^3/uL Baso # (Auto) (0.0-0.1) 10^3/uL Absolute Nucleated RBC x10^3/uL Total Counted Band Neuts % (Manual) (0 - 10) % Abnorm Lymph % (Manual) % Nucleated RBC % /100WBC Neutrophils # (Manual) (1.5-6.6) 10^3/uL Lymphocytes # (Manual) (1.5-3.5) 10^3/uL Monocytes # (Manual) (0.0-1.0) 10^3/uL Eosinophils # (Manual) (0-0.7) 10^3/uL Basophils # (Manual) (0-0.1) 10^3/uL Differential Comment Manual Slide Review WBC Morphology (NORMAL) Platelet Estimate (NORMAL) Platelet Morphology (NORMAL) RBC Morph Micro Appear (NORMAL) Sodium (135-145) mmol/L Potassium (3.5-4.5) mmol/L Chloride (101-111) mmol/L Carbon Dioxide (21-32) mmol/L Anion Gap (6-13) BUN (6-20) mg/dL Creatinine (0.6-1.3) mg/dL Estimated GFR (MDRD) (>89) Glucose (74-104) mg/dL POC Whole Bld Glucose 168 (70-100) mg/dL Estimat Average Glucose 105 H (70-100) mg/dL Hemoglobin A1c % 5.3 (4.27-6.07) % Lactic Acid (0.5-2.2) mmol/L Calcium (8.5-10.3) mg/dL Magnesium (1.7-2.3) mg/dL Total Bilirubin (0.2-1.0) mg/dL AST (10-42) IU/L ALT (10-60) IU/L Alkaline Phosphatase (42-121) IU/L B-Natriuretic Peptide (5-100) pg/mL Total Protein (6.4-8.9) g/dL Albumin (3.2-5.5) g/dL Globulin (2.1-4.2) g/dL Albumin/Globulin Ratio (1.0-2.2) Lipase (11-82) U/L Nasal Adenovirus (PCR) Nasal B. parapertussis DNA (PCR) Nasal Coronavir 229E PCR Nasal Coronavir HKU1 PCR Nasal Coronavir NL63 PCR Nasal Coronavir OC43 PCR Nasal Enterovir/Rhinovir PCR Nasal Influenza B PCR Nasal Influenza A PCR Nasal Parainfluen 1 PCR Nasal Parainfluen 2 PCR Nasal Parainfluen 3 PCR Nasal Parainfluen 4 PCR Nasal RSV (PCR) Nasal Screen MRSA (PCR) NEGATIVE (NEGATIVE) Nasal B.pertussis DNA PCR Nasal C.pneumoniae (PCR) [place] Human Metapneumo PCR Nasal M.pneumoniae (PCR) Nasal SARS-CoV-2 (PCR) 04/05/24 04/05/24 04/05/24 Range/Units 11:23 11:00 10:52 WBC 26.6 H (4.8-10.8) x10^3/uL RBC 5.08 (4.20-5.40) 10^6/uL Hgb 12.5 (12.0-16.0) g/dL Hct 43.7 (37.0-47.0) % MCV 86.0 (81.0-99.0) fL MCH 24.6 L (27.0-31.0) pg MCHC 28.6 L (32.0-36.0) g/dL RDW 15.1 H (12.0-15.0) % Plt Count 730 H (130-450) 10^3/uL MPV 10.3 (7.9-10.8) fL Neut # (Auto) 21.7 H (1.5-6.6) 10^3/uL Lymph # (Auto) 3.0 (1.5-3.5) 10^3/uL [place] # (Auto) 1.5 H (0.0-1.0) 10^3/uL Eos # (Auto) 0.2 (0.0-0.7) 10^3/uL Baso # (Auto) 0.1 (0.0-0.1) 10^3/uL Absolute Nucleated RBC 0.00 x10^3/uL Total Counted Band Neuts % (Manual) (0 - 10) % Abnorm Lymph % (Manual) % Nucleated RBC % 0.0 /100WBC Neutrophils # (Manual) (1.5-6.6) 10^3/uL Lymphocytes # (Manual) (1.5-3.5) 10^3/uL Monocytes # (Manual) (0.0-1.0) 10^3/uL Eosinophils # (Manual) (0-0.7) 10^3/uL Basophils # (Manual) (0-0.1) 10^3/uL Differential Comment Manual Slide Review Indicated WBC Morphology (NORMAL) Platelet Estimate INCREASED (>450,000) (NORMAL) Platelet Morphology NORMAL APPEARANCE (NORMAL) RBC Morph Micro Appear 1+ HYPOCHROMASIA (NORMAL) Sodium 135 (135-145) mmol/L Potassium 4.2 (3.5-4.5) mmol/L Chloride 95 L (101-111) mmol/L Carbon Dioxide 28 (21-32) mmol/L Anion Gap 12.0 (6-13) BUN 15 (6-20) mg/dL Creatinine 0.9 (0.6-1.3) mg/dL Estimated GFR (MDRD) 61 L (>89) Glucose 260 H (74-104) mg/dL POC Whole Bld Glucose (70-100) mg/dL Estimat Average Glucose (70-100) mg/dL Hemoglobin A1c % (4.27-6.07) % Lactic Acid 3.1 H* (0.5-2.2) mmol/L Calcium 8.7 (8.5-10.3) mg/dL Magnesium 1.8 (1.7-2.3) mg/dL Total Bilirubin 0.7 (0.2-1.0) mg/dL AST 80 H (10-42) IU/L ALT 63 H (10-60) IU/L Alkaline Phosphatase 217 H (42-121) IU/L B-Natriuretic Peptide 1692 H (5-100) pg/mL Total Protein 7.4 (6.4-8.9) g/dL Albumin 3.5 (3.2-5.5) g/dL Globulin 3.9 (2.1-4.2) g/dL Albumin/Globulin Ratio 0.9 L (1.0-2.2) Lipase 11 (11-82) U/L Nasal Adenovirus (PCR) NOT DETECTED Nasal B. parapertussis DNA (PCR) NOT DETECTED Nasal Coronavir 229E PCR NOT DETECTED Nasal Coronavir HKU1 PCR NOT DETECTED Nasal Coronavir NL63 PCR NOT DETECTED Nasal Coronavir OC43 PCR NOT DETECTED Nasal Enterovir/Rhinovir PCR NOT DETECTED Nasal Influenza B PCR NOT DETECTED Nasal Influenza A PCR NOT DETECTED Nasal Parainfluen 1 PCR NOT DETECTED Nasal Parainfluen 2 PCR NOT DETECTED Nasal Parainfluen 3 PCR NOT DETECTED Nasal Parainfluen 4 PCR NOT DETECTED Nasal RSV (PCR) NOT DETECTED Nasal Screen MRSA (PCR) (NEGATIVE) Nasal B.pertussis DNA PCR NOT DETECTED Nasal C.pneumoniae (PCR) NOT DETECTED [place] Human Metapneumo PCR NOT DETECTED Nasal M.pneumoniae (PCR) NOT DETECTED Nasal SARS-CoV-2 (PCR) NOT DETECTED Diagnostic Imaging Diagnostic Imaging Results: positive Final report reviewed Assessment/Plan Problem List (1) Acute respiratory failure with hypoxia: Impression: Continue IV fluid Lasix for negative fluid balance. Patient on nasal cannulae 4 L, satting greater than 92% (2) Heart failure with reduced ejection fraction: Impression: Follow echo cardiology reading. Patient did mention that previous EF Was around 15 to 20% Continue Lasix IV, Wean off Levophed as tolerated Restart heart failure medications as tolerated (3) Acute exacerbation of chronic obstructive pulmonary disease: Impression: DuoNebs as needed, Wean patient to home O2. (4) Pulmonary edema: Impression: Respiratory status has markedly improved Continue IV Lasix for now Follow chest x-ray tomorrow For resolution of pulm edema in setting of heart failure with reduced EF Qualifiers: Chronicity: acute Qualified Code(s): J81.0 - Acute pulmonary edema (5) Healthcare-associated pneumonia: Impression: Continue cefepime, vancomycin. Consider de-escalation tomorrow Follow respiratory status, follow leukocytosis. Nasal MRSA screen is negative (6) Lactic acidosis: Impression: Resolved (7) Elevated liver enzymes: Impression: Resolved Likely due to to sepsis. (8) Type 2 diabetes mellitus: Impression: Insulin sliding scale (9) Septic shock: Impression: Sepsis likely secondary to healthcare associated pneumonia. Continue cefepime vancomycin, consider de-escalation tomorrow Lactate within normal limits lactic acid has resolved from 3.6 down to 1.1. Wean off Levophed as tolerated Addendum: PCR blood cultures resolved to E. coli bacteremia. Urine culture pending Continue cefepime, vancomycin (Vancomycin for healthcare/pneumonia). Follow echocardiogram To exclude endocarditis
[2024-04-06] MEDS: SERTRALINE 25 MG TABLET PO SCH (08:51)
[2024-04-06] MEDS: CLOPIDOGREL 75 MG TABLET PO SCH (08:52)
[2024-04-06] MEDS: FUROSEMIDE 20 MG/2 ML VIAL IVP SCH (08:52)
[2024-04-06] MEDS: POTASSIUM CHLORIDE 10 MEQ CAPSULE PO SCH (08:52)
[2024-04-06] MEDS: CYANOCOBALAMIN 500 MCG TABLET PO SCH (08:52)
[2024-04-06] MEDS: SPIRONOLACTONE 25 MG TABLET PO SCH (08:52)
[2024-04-06] MEDS ORDERED: ASPIRIN EC 81 MG TABLET PO SCH (09:00)
[2024-04-06] MEDS: VANCOMYCIN INJ 1 GM in SODIUM CHLORIDE 0.9% 250 ML IV SCH (15:47)
[2024-04-06] MEDS: ACETAMINOPHEN 325 MG TABLET PO PRN (23:59)
[2024-04-07 04:41] LABS: BASOPHILS # (AUTO) 0.1 10^3/uL (0.0-0.1); BASOPHILS % (AUTO) 0.5 %; EOSINOPHILS # (AUTO) 0.1 10^3/uL (0.0-0.7); EOSINOPHILS % (AUTO) 1.1 %; HCT - HEMATOCRIT 34.6 % (37.0-47.0); HGB - HEMOGLOBIN 10.2 g/dL (12.0-16.0); LYMPHOCYTES # (AUTO) 1.3 10^3/uL (1.5-3.5); LYMPHOCYTES % (AUTO) 11.6 %; MEAN CORPUSCULAR HEMOGLOBIN 24.6 pg (27.0-31.0); MEAN CORPUSCULAR HGB CONC 29.5 g/dL (32.0-36.0); MEAN CORPUSCULAR VOLUME 83.4 fL (81.0-99.0); MEAN PLATELET VOLUME 10.6 fL (7.9-10.8); MONOCYTES # (AUTO) 0.7 10^3/uL (0.0-1.0); MONOCYTES % (AUTO) 5.9 %; NEUTROPHILS # (AUTO) 8.8 10^3/uL (1.5-6.6); NEUTROPHILS % (AUTO) 80.4 %; PLT - PLATELET COUNT 356 10^3/uL (130-450); RED BLOOD COUNT 4.15 10^6/uL (4.20-5.40); RED CELL DISTRIBUTION WIDTH 15.1 % (12.0-15.0)
[2024-04-07 04:55] LABS: CALCIUM 8.3 mg/dL (8.5-10.3); CREATININE 1.1 mg/dL (0.6-1.3); POTASSIUM 3.3 mmol/L (3.5-4.5)
--- NOTE | 2024-04-07 08:16 | XRAY Report ---
PROCEDURE: XR Chest 1V INDICATIONS: follow up on pna, pul edema TECHNIQUE: One view of the chest was acquired. COMPARISON: Chest x-ray 04/05/2024 FINDINGS: Surgical changes and devices: None. Lungs and pleura: Interval decrease in bilateral perihilar opacification extending to the lung bases . No significant pleural effusion. Mediastinum: Aortic arch calcifications. Mediastinal contours otherwise appear normal. Heart size i s normal, accounting for anterior mediastinal fat. Bones and chest wall: No suspicious bony lesions. Overlying soft tissues appear unremarkable. IMPRESSION: Interval decrease in presumed pulmonary edema. Reviewed by: Bob Coe MD on 04/07/2024 8:15 AM PST Approved by: Bob Coe MD on 04/07/2024 8:15 AM [facility] Station ID: [id number]
[2024-04-07] MEDS: METOPROLOL SUCCINATE 25 MG TABLET PO SCH (08:29)
[2024-04-07] MEDS: lisinopriL 5 MG TABLET PO SCH (08:30)
[2024-04-07] MEDS: LIDOCAINE PATCH 4% TOP PRN (08:44)
[2024-04-07] MEDS ORDERED: SERTRALINE 25 MG TABLET PO SCH (09:00)
--- NOTE | 2024-04-07 09:27 | PROVIDER PROGRESS NOTE ---
Subjective Prog Note Date Prog Note Date: 04/07/24 Prog Note Time: 09:17 Subjective Subjective: Information was acquired from ED physician and previous chart notes. Patient is just moaning and barely answering questions. This is a 74 old female, resident of [facility], with a past medical history of Diabetes type 2, COPD on 2 L home oxygen, heart failure with reduced EF, CAD and morbid obesity who presented to the ER Due to worsening shortness of breath. Apparently staff noticed patient having a cough and worsening shortness of breath at rest starting yesterday which worsened overnight. EMS was called and patient was transferred to the ED. Patient denies genital pain, denies nausea and vomiting. In the ED laboratory values indicated Sepsis, pt is febrile, Leukocytosis, elevated lactic acid, Elevated AST/ALT, elevated BNP, sinus tach. Chest x-ray indicates increased vascularity most likely pulm edema as well as underlying pneumonia. Patient was given Levaquin p.o. in the ER. ABGs pending. 04/06/2024: Patient changed CODE STATUS to partial code. No CPR, okay to intubate. Patient states that she feels much better than yesterday, Wants to eat breakfast. Patient states respiratory distress has resolved. 04/07/2024: Patient states that she feels well, much better than yesterday and the day she came in. Patient denies any respiratory distress. Current Medications Current Medications Current Medications: Current Medications Generic Name Dose Route Start Last Admin Trade Name Freq PRN Reason Stop Dose Admin Acetaminophen 650 mg 04/05/24 12:18 04/06/24 23:59 Acetaminophen 325 Mg Tablet PO 650 mg Q4HR PRN Administration Pain 1 to 4, or Fever Al Hydroxide/Mg Hydroxide 30 ml 04/05/24 13:54 Mag Hydrox/Al Hydrox/Simeth 30 Ml Udc PO Q4HR PRN INDIGESTION Albuterol/Ipratropium 3 ml 04/05/24 12:31 Ipratropium/Albuterol 3 Ml Neb INH Q4HR PRN Wheezing Atorvastatin Calcium 40 mg 04/05/24 21:00 04/06/24 20:33 Atorvastatin 40 Mg Tablet PO 40 mg QPM BETTYE Administration Bisacodyl 10 mg 04/05/24 12:21 Bisacodyl 10 Mg Supp [place] DAILY PRN Constipation Calcium Carbonate/Glycine 500 mg 04/05/24 12:21 Calcium Carbonate Chew 500 Mg Tablet PO BID PRN Indigestion Carboxymethylcellulose 1 drops 04/05/24 21:05 04/05/24 21:41 Carboxymethylcellulose Ophth Drops EACHEYE 1 drops PRN PRN Administration Dry Eye Clopidogrel Bisulfate 75 mg 04/06/24 09:00 04/07/24 08:30 Clopidogrel 75 Mg Tablet PO 75 mg DAILY BETTYE Administration Cyanocobalamin 500 mcg 04/06/24 09:00 04/07/24 08:29 Cyanocobalamin 500 Mcg Tablet PO 500 mcg DAILY BETTYE Administration Diclofenac Sodium 2 gm 04/05/24 12:21 Diclofenac Sodium 1% Gel 50 Gm Tube TOP BID PRN PAIN 1-4 Diphenhydramine HCl 25 mg 04/05/24 12:21 Diphenhydramine 25 Mg Capsule PO BID PRN Allergy Symptoms Enoxaparin Sodium 40 mg 04/05/24 13:00 04/07/24 08:28 Enoxaparin 40 Mg/0.4 Ml Syringe SUBQ 40 mg DAILY BETTYE Administration Furosemide 40 mg 04/07/24 14:00 Furosemide 40 Mg Tablet PO BIDDIURETIC BETTYE Cefepime HCl 1 gm/ Sodium 100 mls @ 200 mls/hr 04/05/24 13:00 04/07/24 08:28 Chloride IV 200 mls/hr BID BETTYE Administration Norepinephrine/Sodium Chloride 8 mg in 250 mls @ 7.5 mls/hr 04/05/24 15:00 04/07/24 04:37 Levophed 8 Mg/250-0.9% Nacl IV Not Given .[id number] [facility] Protocol 4 MCG/MIN Insulin Human Lispro 1 - 5 unit 04/05/24 17:00 04/07/24 08:17 Insulin Lispro 300 Unit/3 Ml Pen SUBQ Not Given 0800,1200,1700,2100 [facility] Protocol Lidocaine 1 patch 04/05/24 13:51 04/07/24 08:44 Lidocaine Patch 4% TOP 1 patch DAILY PRN Administration Pain 1-4 Lisinopril 2.5 mg 04/07/24 09:00 04/07/24 08:30 Lisinopril 5 Mg Tablet PO 2.5 mg DAILY BETTYE Administration Loperamide HCl 2 mg 04/05/24 12:21 04/05/24 21:42 Loperamide 2 Mg Capsule PO 2 mg QID PRN Administration Diarrhea Metoprolol Succinate 12.5 mg 04/07/24 09:00 04/07/24 08:29 Metoprolol Succinate 25 Mg Tablet PO 12.5 mg DAILY BETTYE Administration Multi-Ingredient Ointment 1 applic 04/05/24 21:44 Zinc Oxide 20% Oint 30 Gm Tube TOP PRN PRN Skin Care Nitroglycerin 0.4 mg 04/05/24 12:21 Nitroglycerin Sl 0.4 Mg Tablet SL Q5M PRN Chest Pain Nystatin 15 applic 04/05/24 12:21 Nystatin Powder 15 Gm TOP BID PRN inna intertrigo Ondansetron HCl 4 mg 04/05/24 12:18 Ondansetron Odt 4 Mg Tablet TL Q6HR PRN Nausea / Vomiting Pantoprazole Sodium 40 mg 04/06/24 07:00 04/07/24 06:27 Pantoprazole 40 Mg Tablet PO 40 mg QDAC BETTYE Administration Polyethylene Glycol 17 gm 04/05/24 12:21 Polyethylene Glycol 3350 17 Gm Packet PO DAILY PRN Constipation Potassium Chloride 20 meq 04/08/24 09:00 Potassium Chloride 10 Meq Capsule PO DAILY BETTYE Senna 17.2 mg 04/05/24 12:21 Senna 8.6 Mg Tablet PO DAILY PRN Constipation Sertraline HCl 75 mg 04/06/24 09:00 04/07/24 08:29 Sertraline 25 Mg Tablet PO 75 mg DAILY BETTYE Administration Sodium Chloride 10 ml 04/05/24 12:18 Sodium Chloride Flush 0.9% 10 Ml Syringe IVP PRN PRN NEEDED PER PROVIDER ORDERS Sodium Chloride 10 ml 04/05/24 17:00 04/07/24 08:30 Sodium Chloride Flush 0.9% 10 Ml Syringe IVP 10 ml 0100,0900,1700 BETTYE Administration Spironolactone 25 mg 04/06/24 09:00 04/07/24 08:29 Spironolactone 25 Mg Tablet PO 25 mg DAILY BETTYE Administration Zolpidem Tartrate 5 mg 04/05/24 12:18 Zolpidem 5 Mg Tablet PO QPM PRN Insomnia Objective Vital Signs/Intake & Output Reviewed Vital Signs: Yes Vital Signs: Vital Signs x48h Temp Pulse Resp BP Pulse Ox O2 Flow Rate 04/07/24 09:00 37.6 C 72 23 149/59 H 96 2 04/07/24 08:00 37.3 C 62 25 H 122/41 L 97 2 04/07/24 07:00 37.1 C 63 23 138/55 H 97 3 04/07/24 06:00 37.0 C 58 L 19 118/48 L 97 3 04/07/24 05:00 36.9 C 55 L 18 120/42 L 98 3 04/07/24 04:00 37.0 C 56 L 20 101/41 L 98 3 04/07/24 03:00 37.3 C 61 19 108/50 L 98 3 04/07/24 02:00 37.5 C 57 L 19 101/43 L 96 3 Intake & Output: Intake & Output 04/04/24 04/05/24 04/06/24 04/07/24 23:59 23:59 23:59 23:59 Intake Total 893 / 893 628 / 628 640 / 640 Output Total 615 / 615 1994 985 / 985 Balance 278 / 278 -1367 / -1367 -345 / -345 Weight (kg) 95.5 kg 99 kg 96 kg Objective General Appearance: positive No acute distress and Alert Eyes Bilateral: positive Normal inspection and PERRL ENT: positive ENT inspection nml Neck: positive Nml inspection and Trachea midline Respiratory: positive Chest non-tender and No respiratory distress Cardiovascular: positive Regular rate & rhythm and No murmur Abdomen: positive Non-tender and No organomegaly Back: positive Nml inspection Skin: positive Color nml and No rash Extremities: positive Non-tender and Full ROM Neurologic/Psychiatric: positive Oriented x3 and CN's nml (2-12) Lab Results 04/07/24 04:11 04/07/24 04:11 Other Labs: Lab Results x24hrs 04/07/24 04/07/24 04/06/24 Range/Units 08:11 04:11 20:30 WBC 11.0 H (4.8-10.8) x10^3/uL RBC 4.15 L (4.20-5.40) 10^6/uL Hgb 10.2 L (12.0-16.0) g/dL Hct 34.6 L (37.0-47.0) % MCV 83.4 (81.0-99.0) fL MCH 24.6 L (27.0-31.0) pg MCHC 29.5 L (32.0-36.0) g/dL RDW 15.1 H (12.0-15.0) % Plt Count 356 (130-450) 10^3/uL MPV 10.6 (7.9-10.8) fL Neut # (Auto) 8.8 H (1.5-6.6) 10^3/uL Lymph # (Auto) 1.3 L (1.5-3.5) 10^3/uL [place] # (Auto) 0.7 (0.0-1.0) 10^3/uL Eos # (Auto) 0.1 (0.0-0.7) 10^3/uL Baso # (Auto) 0.1 (0.0-0.1) 10^3/uL Absolute Nucleated RBC 0.00 x10^3/uL Nucleated RBC % 0.0 /100WBC Sodium 138 (135-145) mmol/L Potassium 3.3 L (3.5-4.5) mmol/L Chloride 101 (101-111) mmol/L Carbon Dioxide 29 (21-32) mmol/L Anion Gap 8.0 (6-13) BUN 27 H (6-20) mg/dL Creatinine 1.1 (0.6-1.3) mg/dL Estimated GFR (MDRD) 49 L (>89) Glucose 114 H (74-104) mg/dL POC Whole Bld Glucose 99 110 (70-100) mg/dL Calcium 8.3 L (8.5-10.3) mg/dL 04/06/24 04/06/24 Range/Units 16:46 11:49 WBC (4.8-10.8) x10^3/uL RBC (4.20-5.40) 10^6/uL Hgb (12.0-16.0) g/dL Hct (37.0-47.0) % MCV (81.0-99.0) fL MCH (27.0-31.0) pg MCHC (32.0-36.0) g/dL RDW (12.0-15.0) % Plt Count (130-450) 10^3/uL MPV (7.9-10.8) fL Neut # (Auto) (1.5-6.6) 10^3/uL Lymph # (Auto) (1.5-3.5) 10^3/uL [place] # (Auto) (0.0-1.0) 10^3/uL Eos # (Auto) (0.0-0.7) 10^3/uL Baso # (Auto) (0.0-0.1) 10^3/uL Absolute Nucleated RBC x10^3/uL Nucleated RBC % /100WBC Sodium (135-145) mmol/L Potassium (3.5-4.5) mmol/L Chloride (101-111) mmol/L Carbon Dioxide (21-32) mmol/L Anion Gap (6-13) BUN (6-20) mg/dL Creatinine (0.6-1.3) mg/dL Estimated GFR (MDRD) (>89) Glucose (74-104) mg/dL POC Whole Bld Glucose 118 114 (70-100) mg/dL Calcium (8.5-10.3) mg/dL Diagnostic Imaging Diagnostic Imaging Results: positive Final report reviewed Assessment/Plan Problem List (1) Acute respiratory failure with hypoxia: Impression: Resolved, patient now on home oxygen baseline 2 L. Repeat chest x-ray indicated resolution of pulm edema. (2) Heart failure with reduced ejection fraction: Impression: Echocardiogram done on this admission shows severe reduced EF of 15 to 20%. No vegetations or mass on valves. Patient is now off Levophed, transitioned patient to p.o. Lasix. Continue home heart failure medications. (3) Acute exacerbation of chronic obstructive pulmonary disease: Impression: Resolved Patient on home dose of supplemental oxygen, 2 L DuoNebs as needed, (4) Pulmonary edema: Impression: Repeat chest x-ray this morning shows marked impovement of pulm edema. Transition patient to p.o. Lasix, patient now on baseline home oxygen. Qualifiers: Chronicity: acute Qualified Code(s): J81.0 - Acute pulmonary edema (5) Healthcare-associated pneumonia: Impression: Discontinue vancomycin, continue cefepime IV due to Ecoli bacteremia. Nasal MRSA screen is negative (6) Lactic acidosis: Impression: Resolved (7) Elevated liver enzymes: Impression: Resolved Likely due to to sepsis. (8) Type 2 diabetes mellitus: Impression: Insulin sliding scale (9) Septic shock: Impression: resolved Pt off levophed, nml lactate,no leukocytosid Continue cefepime Addendum: PCR blood cultures resolved to E. coli bacteremia. Urine culture pending Continue cefepime, vancomycin (Vancomycin for healthcare/pneumonia). Follow echocardiogram To exclude endocarditis (10) Gram-negative bacteremia: Impression: PCR blood cultures resolved to E. coli bacteremia. Culture negative for growth. Urine culture pending Continue cefepime days 3 Repeat blood culture -> if negative -> deescalate abx echocardiogram negative for vegations
[2024-04-07] MEDS: FUROSEMIDE 40 MG TABLET PO SCH (17:31)
[2024-04-07] MEDS: NYSTATIN POWDER 15 GM TOP PRN (20:51)
[2024-04-08 04:59] LABS: BASOPHILS % (AUTO) 0.3 %; EOSINOPHILS # (AUTO) 0.3 10^3/uL (0.0-0.7); EOSINOPHILS % (AUTO) 2.8 %; HCT - HEMATOCRIT 31.9 % (37.0-47.0); HGB - HEMOGLOBIN 9.7 g/dL (12.0-16.0); LYMPHOCYTES # (AUTO) 1.6 10^3/uL (1.5-3.5); LYMPHOCYTES % (AUTO) 17.7 %; MEAN CORPUSCULAR HEMOGLOBIN 25.5 pg (27.0-31.0); MEAN CORPUSCULAR HGB CONC 30.4 g/dL (32.0-36.0); MEAN CORPUSCULAR VOLUME 83.7 fL (81.0-99.0); MEAN PLATELET VOLUME 10.9 fL (7.9-10.8); MONOCYTES # (AUTO) 0.6 10^3/uL (0.0-1.0); MONOCYTES % (AUTO) 6.4 %; NEUTROPHILS # (AUTO) 6.6 10^3/uL (1.5-6.6); NEUTROPHILS % (AUTO) 71.9 %; PLT - PLATELET COUNT 343 10^3/uL (130-450); RED BLOOD COUNT 3.81 10^6/uL (4.20-5.40); RED CELL DISTRIBUTION WIDTH 15.2 % (12.0-15.0); WHITE BLOOD COUNT 9.2 x10^3/uL (4.8-10.8)
[2024-04-08 05:26] LABS: CALCIUM 8.3 mg/dL (8.5-10.3); POTASSIUM 3.5 mmol/L (3.5-4.5)
[2024-04-08] MEDS: POTASSIUM CHLORIDE 10 MEQ CAPSULE PO SCH (08:38)
--- NOTE | 2024-04-08 09:28 | PROVIDER PROGRESS NOTE ---
Subjective Prog Note Date Prog Note Date: 04/08/24 Prog Note Time: 09:25 Subjective Subjective: Information was acquired from ED physician and previous chart notes. Patient is just moaning and barely answering questions. This is a 74 old female, resident of [facility], with a past medical history of Diabetes type 2, COPD on 2 L home oxygen, heart failure with reduced EF, CAD and morbid obesity who presented to the ER Due to worsening shortness of breath. Apparently staff noticed patient having a cough and worsening shortness of breath at rest starting yesterday which worsened overnight. EMS was called and patient was transferred to the ED. Patient denies genital pain, denies nausea and vomiting. In the ED laboratory values indicated Sepsis, pt is febrile, Leukocytosis, elevated lactic acid, Elevated AST/ALT, elevated BNP, sinus tach. Chest x-ray indicates increased vascularity most likely pulm edema as well as underlying pneumonia. Patient was given Levaquin p.o. in the ER. ABGs pending. 04/06/2024: Patient changed CODE STATUS to partial code. No CPR, okay to intubate. Patient states that she feels much better than yesterday, Wants to eat breakfast. Patient states respiratory distress has resolved. 04/07/2024: Patient states that she feels well, much better than yesterday and the day she came in. Patient denies any respiratory distress. 04/08/2024: Patient sitting in bed having breakfast,. Patient has no complaints. Current Medications Current Medications Current Medications: Current Medications Generic Name Dose Route Start Last Admin Trade Name Freq PRN Reason Stop Dose Admin Acetaminophen 650 mg 04/05/24 12:18 04/07/24 21:30 Acetaminophen 325 Mg Tablet PO 650 mg Q4HR PRN Administration Pain 1 to 4, or Fever Al Hydroxide/Mg Hydroxide 30 ml 04/05/24 13:54 Mag Hydrox/Al Hydrox/Simeth 30 Ml Udc PO Q4HR PRN INDIGESTION Albuterol/Ipratropium 3 ml 04/05/24 12:31 Ipratropium/Albuterol 3 Ml Neb INH Q4HR PRN Wheezing Atorvastatin Calcium 40 mg 04/05/24 21:00 04/07/24 20:51 Atorvastatin 40 Mg Tablet PO 40 mg QPM BETTYE Administration Bisacodyl 10 mg 04/05/24 12:21 Bisacodyl 10 Mg Supp [place] DAILY PRN Constipation Calcium Carbonate/Glycine 500 mg 04/05/24 12:21 Calcium Carbonate Chew 500 Mg Tablet PO BID PRN Indigestion Carboxymethylcellulose 1 drops 04/05/24 21:05 04/05/24 21:41 Carboxymethylcellulose Ophth Drops EACHEYE 1 drops PRN PRN Administration Dry Eye Clopidogrel Bisulfate 75 mg 04/06/24 09:00 04/08/24 08:37 Clopidogrel 75 Mg Tablet PO 75 mg DAILY BETTYE Administration Cyanocobalamin 500 mcg 04/06/24 09:00 04/08/24 08:37 Cyanocobalamin 500 Mcg Tablet PO 500 mcg DAILY BETTYE Administration Diclofenac Sodium 2 gm 04/05/24 12:21 Diclofenac Sodium 1% Gel 50 Gm Tube TOP BID PRN PAIN 1-4 Diphenhydramine HCl 25 mg 04/05/24 12:21 Diphenhydramine 25 Mg Capsule PO BID PRN Allergy Symptoms Enoxaparin Sodium 40 mg 04/05/24 13:00 04/08/24 08:38 Enoxaparin 40 Mg/0.4 Ml Syringe SUBQ 40 mg DAILY BETTYE Administration Furosemide 40 mg 04/07/24 14:00 04/08/24 06:16 Furosemide 40 Mg Tablet PO 40 mg BIDDIURETIC BETTYE Administration Cefepime HCl 1 gm/ Sodium 100 mls @ 200 mls/hr 04/05/24 13:00 04/08/24 08:37 Chloride IV 200 mls/hr BID BETTYE Administration Norepinephrine/Sodium Chloride 8 mg in 250 mls @ 7.5 mls/hr 04/05/24 15:00 04/07/24 04:37 Levophed 8 Mg/250-0.9% Nacl IV Not Given .[id number] [facility] Protocol 4 MCG/MIN Insulin Human Lispro 1 - 5 unit 04/05/24 17:00 04/08/24 07:54 Insulin Lispro 300 Unit/3 Ml Pen SUBQ Not Given 0800,1200,1700,2100 [facility] Protocol Lidocaine 1 patch 04/05/24 13:51 04/07/24 08:44 Lidocaine Patch 4% TOP 1 patch DAILY PRN Administration Pain 1-4 Lisinopril 2.5 mg 04/07/24 09:00 04/07/24 08:30 Lisinopril 5 Mg Tablet PO 2.5 mg DAILY BETTYE Administration Loperamide HCl 2 mg 04/05/24 12:21 04/05/24 21:42 Loperamide 2 Mg Capsule PO 2 mg QID PRN Administration Diarrhea Metoprolol Succinate 12.5 mg 04/07/24 09:00 04/08/24 08:38 Metoprolol Succinate 25 Mg Tablet PO 12.5 mg DAILY BETTYE Administration Multi-Ingredient Ointment 1 applic 04/05/24 21:44 Zinc Oxide 20% Oint 30 Gm Tube TOP PRN PRN Skin Care Nitroglycerin 0.4 mg 04/05/24 12:21 Nitroglycerin Sl 0.4 Mg Tablet SL Q5M PRN Chest Pain Nystatin 15 applic 04/05/24 12:21 04/07/24 20:51 Nystatin Powder 15 Gm TOP 15 applic BID PRN Administration inna intertrigo Ondansetron HCl 4 mg 04/05/24 12:18 Ondansetron Odt 4 Mg Tablet TL Q6HR PRN Nausea / Vomiting Pantoprazole Sodium 40 mg 04/06/24 07:00 04/08/24 06:16 Pantoprazole 40 Mg Tablet PO 40 mg QDAC BETTYE Administration Polyethylene Glycol 17 gm 04/05/24 12:21 Polyethylene Glycol 3350 17 Gm Packet PO DAILY PRN Constipation Potassium Chloride 20 meq 04/08/24 09:00 04/08/24 08:38 Potassium Chloride 10 Meq Capsule PO 20 meq DAILY BETTYE Administration Senna 17.2 mg 04/05/24 12:21 Senna 8.6 Mg Tablet PO DAILY PRN Constipation Sertraline HCl 75 mg 04/06/24 09:00 04/08/24 08:39 Sertraline 25 Mg Tablet PO 75 mg DAILY BETTYE Administration Sodium Chloride 10 ml 04/05/24 12:18 Sodium Chloride Flush 0.9% 10 Ml Syringe IVP PRN PRN NEEDED PER PROVIDER ORDERS Sodium Chloride 10 ml 04/05/24 17:00 04/08/24 08:40 Sodium Chloride Flush 0.9% 10 Ml Syringe IVP 10 ml 0100,0900,1700 BETTYE Administration Spironolactone 25 mg 04/06/24 09:00 04/08/24 08:37 Spironolactone 25 Mg Tablet PO 25 mg DAILY BETTYE Administration Zolpidem Tartrate 5 mg 04/05/24 12:18 Zolpidem 5 Mg Tablet PO QPM PRN Insomnia Objective Vital Signs/Intake & Output Reviewed Vital Signs: Yes Vital Signs: Vital Signs x48h Temp Pulse Resp BP BP Pulse Ox O2 Flow Rate 04/08/24 09:00 37.6 C 68 21 122/29 L 93 2 04/08/24 08:00 37.3 C 55 L 23 123/48 L 97 2 04/08/24 07:00 37.3 C 54 L 20 120/42 L 95 2 04/08/24 06:00 37.1 C 60 19 107/49 L 96 2 04/08/24 05:00 50 L 20 122/46 L 98 2 04/08/24 04:00 37.0 C 52 L 21 110/45 L 96 2 04/08/24 03:00 36.8 C 58 L 22 96/49 L 95 2 04/08/24 02:00 36.8 C 49 L 20 98/50 L 94 2 Intake & Output: Intake & Output 04/05/24 04/06/24 04/07/24 04/08/24 23:59 23:59 23:59 23:59 Intake Total 893 / 893 628 / 628 1577 / 1577 550 / 550 Output Total 615 / 615 1994 / 1994 1655 / 1655 921 / 921 Balance 278 / 278 -1367 / -1367 -78 / -78 -371 / -371 Weight (kg) 95.5 kg 99 kg 96 kg 97 kg Objective General Appearance: positive No acute distress and Alert Eyes Bilateral: positive Normal inspection and PERRL ENT: positive ENT inspection nml Neck: positive Nml inspection and Trachea midline Respiratory: positive Chest non-tender and No respiratory distress Cardiovascular: positive Regular rate & rhythm and No murmur Abdomen: positive Non-tender and No organomegaly Back: positive Nml inspection Skin: positive Color nml and No rash Extremities: positive Non-tender and Full ROM Neurologic/Psychiatric: positive Oriented x3 and CN's nml (2-12) Lab Results 04/08/24 04:25 04/08/24 04:25 Other Labs: Lab Results x24hrs 04/08/24 04/08/24 04/07/24 Range/Units 07:46 04:25 20:36 WBC 9.2 (4.8-10.8) x10^3/uL RBC 3.81 L (4.20-5.40) 10^6/uL Hgb 9.7 L (12.0-16.0) g/dL Hct 31.9 L (37.0-47.0) % MCV 83.7 (81.0-99.0) fL MCH 25.5 L (27.0-31.0) pg MCHC 30.4 L (32.0-36.0) g/dL RDW 15.2 H (12.0-15.0) % Plt Count 343 (130-450) 10^3/uL MPV 10.9 H (7.9-10.8) fL Neut # (Auto) 6.6 (1.5-6.6) 10^3/uL Lymph # (Auto) 1.6 (1.5-3.5) 10^3/uL [place] # (Auto) 0.6 (0.0-1.0) 10^3/uL Eos # (Auto) 0.3 (0.0-0.7) 10^3/uL Baso # (Auto) 0.0 (0.0-0.1) 10^3/uL Absolute Nucleated RBC 0.00 x10^3/uL Nucleated RBC % 0.0 /100WBC Sodium 139 (135-145) mmol/L Potassium 3.5 (3.5-4.5) mmol/L Chloride 102 (101-111) mmol/L Carbon Dioxide 31 (21-32) mmol/L Anion Gap 6.0 (6-13) BUN 21 H (6-20) mg/dL Creatinine 1.0 (0.6-1.3) mg/dL Estimated GFR (MDRD) 54 L (>89) Glucose 99 (74-104) mg/dL POC Whole Bld Glucose 90 106 (70-100) mg/dL Calcium 8.3 L (8.5-10.3) mg/dL 04/07/24 04/07/24 Range/Units 16:53 12:07 WBC (4.8-10.8) x10^3/uL RBC (4.20-5.40) 10^6/uL Hgb (12.0-16.0) g/dL Hct (37.0-47.0) % MCV (81.0-99.0) fL MCH (27.0-31.0) pg MCHC (32.0-36.0) g/dL RDW (12.0-15.0) % Plt Count (130-450) 10^3/uL MPV (7.9-10.8) fL Neut # (Auto) (1.5-6.6) 10^3/uL Lymph # (Auto) (1.5-3.5) 10^3/uL [place] # (Auto) (0.0-1.0) 10^3/uL Eos # (Auto) (0.0-0.7) 10^3/uL Baso # (Auto) (0.0-0.1) 10^3/uL Absolute Nucleated RBC x10^3/uL Nucleated RBC % /100WBC Sodium (135-145) mmol/L Potassium (3.5-4.5) mmol/L Chloride (101-111) mmol/L Carbon Dioxide (21-32) mmol/L Anion Gap (6-13) BUN (6-20) mg/dL Creatinine (0.6-1.3) mg/dL Estimated GFR (MDRD) (>89) Glucose (74-104) mg/dL POC Whole Bld Glucose 134 103 (70-100) mg/dL Calcium (8.5-10.3) mg/dL Diagnostic Imaging Diagnostic Imaging Results: positive Final report reviewed Assessment/Plan Problem List (1) Acute respiratory failure with hypoxia: Impression: Resolved patient now on home oxygen baseline 2 L. Repeat chest x-ray indicated resolution of pulm edema. (2) Heart failure with reduced ejection fraction: Impression: Echocardiogram done on this admission shows severe reduced EF of 15 to 20%. No vegetations or mass on valves. Patient is now off Levophed, transitioned patient to p.o. Lasix. Continue home heart failure medications. (3) Acute exacerbation of chronic obstructive pulmonary disease: Impression: Resolved Patient on home dose of supplemental oxygen, 2 L DuoNebs as needed, (4) Pulmonary edema: Impression: Repeat chest x-ray this morning shows marked impovement of pulm edema. Transition patient to p.o. Lasix, patient now on baseline home oxygen. Qualifiers: Chronicity: acute Qualified Code(s): J81.0 - Acute pulmonary edema (5) Healthcare-associated pneumonia: Impression: Discontinue vancomycin, continue cefepime IV due to Ecoli bacteremia. Nasal MRSA screen is negative (6) Lactic acidosis: Impression: Resolved (7) Elevated liver enzymes: Impression: Resolved Likely due to to sepsis. (8) Type 2 diabetes mellitus: Impression: Insulin sliding scale (9) Septic shock: Impression: resolved Pt off levophed, nml lactate,no leukocytosid Continue cefepime Addendum 04/06/2024: PCR blood cultures resolved to E. coli bacteremia. Urine culture pending Continue cefepime, vancomycin (Vancomycin for healthcare/pneumonia). Follow echocardiogram To exclude endocarditis (10) Gram-negative bacteremia: Impression: PCR blood cultures resolved to E. coli bacteremia. Culture negative for growth. Urine culture pending Continue cefepime days 4/7 Repeat blood culture Are pending echocardiogram negative for vegations
[2024-04-08] MEDS ORDERED: ALBUTEROL SULFATE PO PRN (14:00)
[2024-04-08] MEDS ORDERED: [UNRECOGNIZED DRUG - OTHER] PO PRN (14:00)
[2024-04-08] MEDS ORDERED: ACETAMINOPHEN 325 MG TABLET PO PRN (14:00)
[2024-04-08] MEDS ORDERED: MINERAL OIL ENEMA 133 ML BOTTLE PR PRN (14:03)
[2024-04-08] MEDS ORDERED: HYDROcod/ACET 5/325 Prepack 4 PO PRN (14:03)
[2024-04-08] MEDS ORDERED: ZINC OXIDE 20% OINT 30 GM TUBE TOP PRN (14:03)
[2024-04-08] MEDS ORDERED: ALBUTEROL NEB 2.5 MG/3 ML INH PRN (14:56)
[2024-04-08] MEDS ORDERED: HYDROcod/ACETAM 5/325 MG TABLET PO PRN (14:57)
[2024-04-08] MEDS ORDERED: LOPERAMIDE 2 MG CAPSULE PO SCH (15:00)
--- NOTE | 2024-04-08 17:40 | PT Plan of Care ---
<Statement entered by Evelia Phan, DO - 04/09/24 18:31> wrong note please disregard note Dr. Phan 04/09/2024
[2024-04-09 06:18] LABS: BASOPHILS # (AUTO) 0.1 10^3/uL (0.0-0.1); BASOPHILS % (AUTO) 0.5 %; EOSINOPHILS # (AUTO) 0.3 10^3/uL (0.0-0.7); EOSINOPHILS % (AUTO) 3.3 %; HCT - HEMATOCRIT 33.5 % (37.0-47.0); HGB - HEMOGLOBIN 10.2 g/dL (12.0-16.0); LYMPHOCYTES # (AUTO) 2.2 10^3/uL (1.5-3.5); LYMPHOCYTES % (AUTO) 23.1 %; MEAN CORPUSCULAR HEMOGLOBIN 25.1 pg (27.0-31.0); MEAN CORPUSCULAR HGB CONC 30.4 g/dL (32.0-36.0); MEAN CORPUSCULAR VOLUME 82.5 fL (81.0-99.0); MEAN PLATELET VOLUME 10.9 fL (7.9-10.8); MONOCYTES # (AUTO) 0.8 10^3/uL (0.0-1.0); MONOCYTES % (AUTO) 8.2 %; NEUTROPHILS # (AUTO) 6.1 10^3/uL (1.5-6.6); NEUTROPHILS % (AUTO) 63.9 %; PLT - PLATELET COUNT 359 10^3/uL (130-450); RED BLOOD COUNT 4.06 10^6/uL (4.20-5.40); RED CELL DISTRIBUTION WIDTH 15.2 % (12.0-15.0); WHITE BLOOD COUNT 9.6 x10^3/uL (4.8-10.8)
[2024-04-09 06:40] LABS: CALCIUM 8.3 mg/dL (8.5-10.3); CREATININE 0.9 mg/dL (0.6-1.3); POTASSIUM 3.4 mmol/L (3.5-4.5)
[2024-04-09] MEDS: guaiFENesin 600 MG TABLET PO SCH (08:54)
--- NOTE | 2024-04-09 09:12 | PROVIDER PROGRESS NOTE ---
Subjective Prog Note Date Prog Note Date: 04/09/24 Prog Note Time: 09:07 Subjective Subjective: Information was acquired from ED physician and previous chart notes. Patient is just moaning and barely answering questions. This is a 74 old female, resident of [facility], with a past medical history of Diabetes type 2, COPD on 2 L home oxygen, heart failure with reduced EF, CAD and morbid obesity who presented to the ER Due to worsening shortness of breath. Apparently staff noticed patient having a cough and worsening shortness of breath at rest starting yesterday which worsened overnight. EMS was called and patient was transferred to the ED. Patient denies genital pain, denies nausea and vomiting. In the ED laboratory values indicated Sepsis, pt is febrile, Leukocytosis, elevated lactic acid, Elevated AST/ALT, elevated BNP, sinus tach. Chest x-ray indicates increased vascularity most likely pulm edema as well as underlying pneumonia. Patient was given Levaquin p.o. in the ER. ABGs pending. 04/06/2024: Patient changed CODE STATUS to partial code. No CPR, okay to intubate. Patient states that she feels much better than yesterday, Wants to eat breakfast. Patient states respiratory distress has resolved. 04/07/2024: Patient states that she feels well, much better than yesterday and the day she came in. Patient denies any respiratory distress. 04/08/2024: Patient sitting in bed having breakfast,. Patient has no complaints. 04/09/2024: Patient is doing well, has no complaints. No overnight events. Current Medications Current Medications Current Medications: Current Medications Generic Name Dose Route Start Last Admin Trade Name Freq PRN Reason Stop Dose Admin Acetaminophen 650 mg 04/05/24 12:18 04/07/24 21:30 Acetaminophen 325 Mg Tablet PO 650 mg Q4HR PRN Administration Pain 1 to 4, or Fever Hydrocodone Bitart/Acetaminophen 1 tab 04/08/24 14:57 Hydrocod/Acetam 5/325 Mg Tablet PO Q12H PRN Moderate Pain (Level 4-6) Al Hydroxide/Mg Hydroxide 30 ml 04/05/24 13:54 Mag Hydrox/Al Hydrox/Simeth 30 Ml Udc PO Q4HR PRN INDIGESTION Albuterol 2.5 mg 04/08/24 14:56 Albuterol Neb 2.5 Mg/3 Ml INH RTQ6H PRN Wheezing Albuterol/Ipratropium 3 ml 04/05/24 12:31 Ipratropium/Albuterol 3 Ml Neb INH Q4HR PRN Wheezing Atorvastatin Calcium 40 mg 04/05/24 21:00 04/08/24 21:00 Atorvastatin 40 Mg Tablet PO 40 mg QPM BETTYE Administration Bisacodyl 10 mg 04/05/24 12:21 Bisacodyl 10 Mg Supp [place] DAILY PRN Constipation Calcium Carbonate/Glycine 500 mg 04/05/24 12:21 Calcium Carbonate Chew 500 Mg Tablet PO BID PRN Indigestion Carboxymethylcellulose 1 drops 04/05/24 21:05 04/05/24 21:41 Carboxymethylcellulose Ophth Drops EACHEYE 1 drops PRN PRN Administration Dry Eye Clopidogrel Bisulfate 75 mg 04/06/24 09:00 04/09/24 08:54 Clopidogrel 75 Mg Tablet PO 75 mg DAILY BETTYE Administration Cyanocobalamin 500 mcg 04/06/24 09:00 04/09/24 08:54 Cyanocobalamin 500 Mcg Tablet PO 500 mcg DAILY BETTYE Administration Diclofenac Sodium 2 gm 04/05/24 12:21 Diclofenac Sodium 1% Gel 50 Gm Tube TOP BID PRN PAIN 1-4 Diphenhydramine HCl 25 mg 04/05/24 12:21 Diphenhydramine 25 Mg Capsule PO BID PRN Allergy Symptoms Enoxaparin Sodium 40 mg 04/05/24 13:00 04/08/24 08:38 Enoxaparin 40 Mg/0.4 Ml Syringe SUBQ 40 mg DAILY BETTYE Administration Furosemide 40 mg 04/07/24 14:00 04/09/24 06:09 Furosemide 40 Mg Tablet PO 40 mg BIDDIURETIC BETTYE Administration Furosemide 40 mg 04/09/24 09:00 Furosemide 40 Mg Tablet PO DAILY BETTYE Guaifenesin 600 mg 04/09/24 09:00 04/09/24 08:54 Guaifenesin 600 Mg Tablet PO 600 mg DAILY BETTYE Administration Cefepime HCl 1 gm/ Sodium 100 mls @ 200 mls/hr 04/05/24 13:00 04/09/24 08:56 Chloride IV 200 mls/hr BID BETTYE Administration Vancomycin HCl 2 gm/ Sodium 500 mls @ 250 mls/hr 04/09/24 08:00 Chloride IV 04/09/24 09:59 ONCE ONE Vancomycin HCl 1 gm/ Sodium 250 mls @ 167 mls/hr 04/10/24 08:00 Chloride IV Q24H [facility] Insulin Human Lispro 1 - 5 unit 04/05/24 17:00 04/09/24 08:33 Insulin Lispro 300 Unit/3 Ml Pen SUBQ Not Given 0800,1200,1700,2100 [facility] Protocol Lidocaine 1 patch 04/05/24 13:51 04/07/24 08:44 Lidocaine Patch 4% TOP 1 patch DAILY PRN Administration Pain 1-4 Lisinopril 2.5 mg 04/07/24 09:00 04/08/24 13:44 Lisinopril 5 Mg Tablet PO 2.5 mg DAILY [facility] Administration Loperamide HCl 2 mg 04/05/24 12:21 04/05/24 21:42 Loperamide 2 Mg Capsule PO 2 mg QID PRN Administration Diarrhea Loperamide HCl 2 mg 04/08/24 15:00 Loperamide 2 Mg Capsule PO Q OTHER DAY [facility] Metoprolol Succinate 12.5 mg 04/07/24 09:00 04/08/24 08:38 Metoprolol Succinate 25 Mg Tablet PO 12.5 mg DAILY [facility] Administration Mineral Oil 118 ml 04/08/24 14:03 Mineral Oil Enema 133 Ml Bottle [place] DAILY PRN constipation Multi-Ingredient Ointment 1 applic 04/05/24 21:44 Zinc Oxide 20% Oint 30 Gm Tube TOP PRN PRN Skin Care Nitroglycerin 0.4 mg 04/05/24 12:21 Nitroglycerin Sl 0.4 Mg Tablet SL Q5M PRN Chest Pain Nystatin 15 applic 04/05/24 12:21 04/07/24 20:51 Nystatin Powder 15 Gm TOP 15 applic BID PRN Administration inna intertrigo Ondansetron HCl 4 mg 04/05/24 12:18 Ondansetron Odt 4 Mg Tablet TL Q6HR PRN Nausea / Vomiting Pantoprazole Sodium 40 mg 04/06/24 07:00 04/09/24 06:09 Pantoprazole 40 Mg Tablet PO 40 mg QDAC [facility] Administration Polyethylene Glycol 17 gm 04/05/24 12:21 Polyethylene Glycol 3350 17 Gm Packet PO DAILY PRN Constipation Potassium Chloride 20 meq 04/08/24 09:00 04/09/24 08:54 Potassium Chloride 10 Meq Capsule PO 20 meq DAILY [facility] Administration Senna 17.2 mg 04/05/24 12:21 Senna 8.6 Mg Tablet PO DAILY PRN Constipation Sertraline HCl 75 mg 04/06/24 09:00 04/08/24 08:39 Sertraline 25 Mg Tablet PO 75 mg DAILY BETTYE Administration Sodium Chloride 10 ml 04/05/24 12:18 Sodium Chloride Flush 0.9% 10 Ml Syringe IVP PRN PRN NEEDED PER PROVIDER ORDERS Sodium Chloride 10 ml 04/05/24 17:00 04/09/24 09:04 Sodium Chloride Flush 0.9% 10 Ml Syringe IVP 10 ml 0100,0900,1700 BETTYE Administration Spironolactone 25 mg 04/06/24 09:00 04/08/24 08:37 Spironolactone 25 Mg Tablet PO 25 mg DAILY BETTYE Administration Zolpidem Tartrate 5 mg 04/05/24 12:18 Zolpidem 5 Mg Tablet PO QPM PRN Insomnia Objective Vital Signs/Intake & Output Reviewed Vital Signs: Yes Vital Signs: Vital Signs x48h Temp Pulse Resp BP Pulse Ox O2 Flow Rate 04/09/24 06:00 36.4 C L 52 L 18 116/42 L 96 2 Intake & Output: Intake & Output 04/06/24 04/07/24 04/08/24 04/09/24 23:59 23:59 23:59 23:59 Intake Total 628 / 628 1577 / 1577 1542 / 1542 565 / 565 Output Total 1994 1655 / 1655 1523 / 1523 200 / 200 Balance -1367 / -1367 -78 / -78 365 / 365 Weight (kg) 99 kg 96 kg 97 kg 89 kg Objective General Appearance: positive No acute distress and Alert Eyes Bilateral: positive Normal inspection and PERRL ENT: positive ENT inspection nml Neck: positive Nml inspection and Trachea midline Respiratory: positive Chest non-tender and No respiratory distress Cardiovascular: positive Regular rate & rhythm and No murmur Abdomen: positive Non-tender and No organomegaly Back: positive Nml inspection Skin: positive Color nml and No rash Extremities: positive Non-tender and Full ROM Neurologic/Psychiatric: positive Oriented x3 and CN's nml (2-12) Lab Results 04/09/24 05:09 04/09/24 05:09 Other Labs: Lab Results x24hrs 04/09/24 04/09/24 04/08/24 Range/Units 07:22 05:09 21:01 WBC 9.6 (4.8-10.8) x10^3/uL RBC 4.06 L (4.20-5.40) 10^6/uL Hgb 10.2 L (12.0-16.0) g/dL Hct 33.5 L (37.0-47.0) % MCV 82.5 (81.0-99.0) fL MCH 25.1 L (27.0-31.0) pg MCHC 30.4 L (32.0-36.0) g/dL RDW 15.2 H (12.0-15.0) % Plt Count 359 (130-450) 10^3/uL MPV 10.9 H (7.9-10.8) fL Neut # (Auto) 6.1 (1.5-6.6) 10^3/uL Lymph # (Auto) 2.2 (1.5-3.5) 10^3/uL [place] # (Auto) 0.8 (0.0-1.0) 10^3/uL Eos # (Auto) 0.3 (0.0-0.7) 10^3/uL Baso # (Auto) 0.1 (0.0-0.1) 10^3/uL Absolute Nucleated RBC 0.00 x10^3/uL Nucleated RBC % 0.0 /100WBC Sodium 138 (135-145) mmol/L Potassium 3.4 L (3.5-4.5) mmol/L Chloride 98 L (101-111) mmol/L Carbon Dioxide 32 (21-32) mmol/L Anion Gap 8.0 (6-13) BUN 17 (6-20) mg/dL Creatinine 0.9 (0.6-1.3) mg/dL Estimated GFR (MDRD) 61 L (>89) Glucose 97 (74-104) mg/dL POC Whole Bld Glucose 99 94 (70-100) mg/dL Calcium 8.3 L (8.5-10.3) mg/dL 04/08/24 04/08/24 Range/Units 17:02 11:32 WBC (4.8-10.8) x10^3/uL RBC (4.20-5.40) 10^6/uL Hgb (12.0-16.0) g/dL Hct (37.0-47.0) % MCV (81.0-99.0) fL MCH (27.0-31.0) pg MCHC (32.0-36.0) g/dL RDW (12.0-15.0) % Plt Count (130-450) 10^3/uL MPV (7.9-10.8) fL Neut # (Auto) (1.5-6.6) 10^3/uL Lymph # (Auto) (1.5-3.5) 10^3/uL [place] # (Auto) (0.0-1.0) 10^3/uL Eos # (Auto) (0.0-0.7) 10^3/uL Baso # (Auto) (0.0-0.1) 10^3/uL Absolute Nucleated RBC x10^3/uL Nucleated RBC % /100WBC Sodium (135-145) mmol/L Potassium (3.5-4.5) mmol/L Chloride (101-111) mmol/L Carbon Dioxide (21-32) mmol/L Anion Gap (6-13) BUN (6-20) mg/dL Creatinine (0.6-1.3) mg/dL Estimated GFR (MDRD) (>89) Glucose (74-104) mg/dL POC Whole Bld Glucose 87 121 (70-100) mg/dL Calcium (8.5-10.3) mg/dL Diagnostic Imaging Diagnostic Imaging Results: positive Final report reviewed Assessment/Plan Problem List (1) Acute respiratory failure with hypoxia: Impression: Resolved patient now on home oxygen baseline 2 L. Repeat chest x-ray indicated resolution of pulm edema. (2) Heart failure with reduced ejection fraction: Impression: Echocardiogram done on this admission shows severe reduced EF of 15 to 20%. No vegetations or mass on valves. Patient is now off Levophed, transitioned patient to p.o. Lasix. Continue home heart failure medications. (3) Acute exacerbation of chronic obstructive pulmonary disease: Impression: Resolved Patient on home dose of supplemental oxygen, 2 L DuoNebs as needed, (4) Pulmonary edema: Impression: Repeat chest x-ray this morning shows marked impovement of pulm edema. Patient back on home Lasix dosage patient now on baseline home oxygen. Qualifiers: Chronicity: acute Qualified Code(s): J81.0 - Acute pulmonary edema (5) Healthcare-associated pneumonia: Impression: Discontinue vancomycin, continue cefepime IV due to Ecoli bacteremia. Nasal MRSA screen is negative (6) Lactic acidosis: Impression: Resolved (7) Elevated liver enzymes: Impression: Resolved Likely due to to sepsis. (8) Type 2 diabetes mellitus: Impression: Insulin sliding scale (9) Septic shock: Impression: resolved Pt off levophed, nml lactate,no leukocytosid Continue cefepime Addendum 04/06/2024: PCR blood cultures resolved to E. coli bacteremia. Urine culture pending Continue cefepime, vancomycin (Vancomycin for healthcare/pneumonia). Follow echocardiogram To exclude endocarditis (10) Gram-negative bacteremia: Impression: PCR blood cultures resolved to E. coli bacteremia On 04/05/2004. Culture negative for growth. Urine culture pending Continue cefepime days 5/7 Repeat blood culture On 03/19/2024 indicated gram-positive cocci 1/2. Start patient on vancomycin. This most likely contamination, follow culture results For indication of bacteria. This is likely a contamination. Patient is afebrile, no WBCs. echocardiogram negative for vegations
[2024-04-09] MEDS: FUROSEMIDE 40 MG TABLET PO SCH (09:15)
[2024-04-09] MEDS: VANCOMYCIN INJ 2 GM in SODIUM CHLORIDE 0.9% 500 ML IV ONE (10:27)
[2024-04-09] MEDS: POTASSIUM CHLORIDE 20 MEQ TABLET PO ONE (10:29)
[2024-04-09] MEDS: SODIUM CHLORIDE FLUSH 0.9% 10 ML SYRINGE IVP PRN (13:05)
[2024-04-10 05:57] LABS: BASOPHILS # (AUTO) 0.1 10^3/uL (0.0-0.1); BASOPHILS % (AUTO) 0.5 %; EOSINOPHILS # (AUTO) 0.5 10^3/uL (0.0-0.7); EOSINOPHILS % (AUTO) 4.5 %; HCT - HEMATOCRIT 35.6 % (37.0-47.0); LYMPHOCYTES # (AUTO) 2.1 10^3/uL (1.5-3.5); LYMPHOCYTES % (AUTO) 18.7 %; MEAN CORPUSCULAR HEMOGLOBIN 25.5 pg (27.0-31.0); MEAN CORPUSCULAR HGB CONC 30.9 g/dL (32.0-36.0); MEAN CORPUSCULAR VOLUME 82.4 fL (81.0-99.0); MEAN PLATELET VOLUME 10.6 fL (7.9-10.8); MONOCYTES # (AUTO) 0.9 10^3/uL (0.0-1.0); MONOCYTES % (AUTO) 8.2 %; NEUTROPHILS # (AUTO) 7.6 10^3/uL (1.5-6.6); NEUTROPHILS % (AUTO) 66.9 %; PLT - PLATELET COUNT 388 10^3/uL (130-450); RED BLOOD COUNT 4.32 10^6/uL (4.20-5.40); RED CELL DISTRIBUTION WIDTH 15.2 % (12.0-15.0); WHITE BLOOD COUNT 11.4 x10^3/uL (4.8-10.8)
[2024-04-10 06:15] LABS: CALCIUM 8.5 mg/dL (8.5-10.3); POTASSIUM 3.7 mmol/L (3.5-4.5)
[2024-04-10] MEDS: VANCOMYCIN INJ 1 GM in SODIUM CHLORIDE 0.9% 250 ML IV SCH (08:20)
[2024-04-10] MEDS: ZINC OXIDE 20% OINT 30 GM TUBE TOP PRN (10:30)
--- NOTE | 2024-04-10 12:16 | PROVIDER PROGRESS NOTE ---
Subjective Subjective Subjective: Patient is a 74-year-old female with history of COPD on 2 L of home oxygen, heart failure with reduced EF who presented due to worsening shortness of breath. She was found to have E. coli bacteremia. She is on cefepime, today is day 6 of 7 of her course. She will be going back to [facility] once authorization is approved. Current Medications Current Medications Current Medications: Current Medications Generic Name Dose Route Start Last Admin Trade Name Freq PRN Reason Stop Dose Admin Acetaminophen 650 mg 04/05/24 12:18 04/07/24 21:30 Acetaminophen 325 Mg Tablet PO 650 mg Q4HR PRN Administration Pain 1 to 4, or Fever Hydrocodone Bitart/Acetaminophen 1 tab 04/08/24 14:57 Hydrocod/Acetam 5/325 Mg Tablet PO Q12H PRN Moderate Pain (Level 4-6) Al Hydroxide/Mg Hydroxide 30 ml 04/05/24 13:54 Mag Hydrox/Al Hydrox/Simeth 30 Ml Udc PO Q4HR PRN INDIGESTION Albuterol 2.5 mg 04/08/24 14:56 Albuterol Neb 2.5 Mg/3 Ml INH RTQ6H PRN Wheezing Albuterol/Ipratropium 3 ml 04/05/24 12:31 Ipratropium/Albuterol 3 Ml Neb INH Q4HR PRN Wheezing Atorvastatin Calcium 40 mg 04/05/24 21:00 04/09/24 20:53 Atorvastatin 40 Mg Tablet PO 40 mg QPM BETTYE Administration Bisacodyl 10 mg 04/05/24 12:21 Bisacodyl 10 Mg Supp [place] DAILY PRN Constipation Calcium Carbonate/Glycine 500 mg 04/05/24 12:21 Calcium Carbonate Chew 500 Mg Tablet PO BID PRN Indigestion Carboxymethylcellulose 1 drops 04/05/24 21:05 04/05/24 21:41 Carboxymethylcellulose Ophth Drops EACHEYE 1 drops PRN PRN Administration Dry Eye Clopidogrel Bisulfate 75 mg 04/06/24 09:00 04/10/24 08:27 Clopidogrel 75 Mg Tablet PO 75 mg DAILY BETTYE Administration Cyanocobalamin 500 mcg 04/06/24 09:00 04/10/24 08:27 Cyanocobalamin 500 Mcg Tablet PO 500 mcg DAILY BETTYE Administration Diclofenac Sodium 2 gm 04/05/24 12:21 Diclofenac Sodium 1% Gel 50 Gm Tube TOP BID PRN PAIN 1-4 Diphenhydramine HCl 25 mg 04/05/24 12:21 Diphenhydramine 25 Mg Capsule PO BID PRN Allergy Symptoms Enoxaparin Sodium 40 mg 04/05/24 13:00 04/10/24 08:26 Enoxaparin 40 Mg/0.4 Ml Syringe SUBQ 40 mg DAILY BETTYE Administration Furosemide 40 mg 04/07/24 14:00 04/10/24 06:15 Furosemide 40 Mg Tablet PO 40 mg BIDDIURETIC BETTYE Administration Furosemide 40 mg 04/09/24 09:00 04/10/24 08:28 Furosemide 40 Mg Tablet PO 40 mg DAILY [facility] Administration Guaifenesin 600 mg 04/09/24 09:00 04/10/24 08:27 Guaifenesin 600 Mg Tablet PO 600 mg DAILY [facility] Administration Cefepime HCl 1 gm/ Sodium 100 mls @ 200 mls/hr 04/05/24 13:00 04/10/24 09:10 Chloride IV Infused BID [facility] Infusion Insulin Human Lispro 1 - 5 unit 04/05/24 17:00 04/10/24 11:51 Insulin Lispro 300 Unit/3 Ml Pen SUBQ Not Given 0800,1200,1700,2100 [facility] Protocol Lidocaine 1 patch 04/05/24 13:51 04/07/24 08:44 Lidocaine Patch 4% TOP 1 patch DAILY PRN Administration Pain 1-4 Lisinopril 2.5 mg 04/07/24 09:00 04/10/24 08:26 Lisinopril 5 Mg Tablet PO 2.5 mg DAILY [facility] Administration Loperamide HCl 2 mg 04/05/24 12:21 04/05/24 21:42 Loperamide 2 Mg Capsule PO 2 mg QID PRN Administration Diarrhea Loperamide HCl 2 mg 04/08/24 15:00 Loperamide 2 Mg Capsule PO Q OTHER DAY [facility] Metoprolol Succinate 12.5 mg 04/07/24 09:00 04/10/24 08:28 Metoprolol Succinate 25 Mg Tablet PO 12.5 mg DAILY [facility] Administration Mineral Oil 118 ml 04/08/24 14:03 Mineral Oil Enema 133 Ml Bottle [place] DAILY PRN constipation Multi-Ingredient Ointment 1 applic 04/05/24 21:44 04/10/24 10:30 Zinc Oxide 20% Oint 30 Gm Tube TOP 1 applic PRN PRN Administration Skin Care Nitroglycerin 0.4 mg 04/05/24 12:21 Nitroglycerin Sl 0.4 Mg Tablet SL Q5M PRN Chest Pain Nystatin 15 applic 04/05/24 12:21 04/07/24 20:51 Nystatin Powder 15 Gm TOP 15 applic BID PRN Administration inna intertrigo Ondansetron HCl 4 mg 04/05/24 12:18 Ondansetron Odt 4 Mg Tablet TL Q6HR PRN Nausea / Vomiting Pantoprazole Sodium 40 mg 04/06/24 07:00 04/10/24 06:14 Pantoprazole 40 Mg Tablet PO 40 mg QDAC BETTYE Administration Polyethylene Glycol 17 gm 04/05/24 12:21 Polyethylene Glycol 3350 17 Gm Packet PO DAILY PRN Constipation Potassium Chloride 20 meq 04/08/24 09:00 04/10/24 08:26 Potassium Chloride 10 Meq Capsule PO 20 meq DAILY BETTYE Administration Senna 17.2 mg 04/05/24 12:21 Senna 8.6 Mg Tablet PO DAILY PRN Constipation Sertraline HCl 75 mg 04/06/24 09:00 04/10/24 08:27 Sertraline 25 Mg Tablet PO 75 mg DAILY BETTYE Administration Sodium Chloride 10 ml 04/05/24 12:18 04/09/24 13:05 Sodium Chloride Flush 0.9% 10 Ml Syringe IVP 10 ml PRN PRN Administration NEEDED PER PROVIDER ORDERS Sodium Chloride 10 ml 04/05/24 17:00 04/10/24 08:28 Sodium Chloride Flush 0.9% 10 Ml Syringe IVP 10 ml 0100,0900,1700 BETTYE Administration Spironolactone 25 mg 04/06/24 09:00 04/10/24 08:28 Spironolactone 25 Mg Tablet PO 25 mg DAILY BETTYE Administration Zolpidem Tartrate 5 mg 04/05/24 12:18 Zolpidem 5 Mg Tablet PO QPM PRN Insomnia Objective Vital Signs/Intake & Output Reviewed Vital Signs: Yes Vital Signs: Vital Signs x48h Temp Pulse Resp BP Pulse Ox O2 Flow Rate 04/10/24 08:26 96.8 F L 63 20 140/59 H 97 2 Intake & Output: Intake & Output 04/07/24 04/08/24 04/09/24 04/10/24 23:59 23:59 23:59 23:59 Intake Total 1577 / 1577 1542 / 1542 1994 1320 / 1320 Output Total 1655 / 1655 1523 / 1523 2325 / 2325 400 / 400 Balance -78 / -78 -330 / -330 920 / 920 Weight (kg) 96 kg 97 kg 89 kg 88.5 kg Objective General Appearance: positive No acute distress and Alert Eyes Bilateral: positive Normal inspection and PERRL ENT: positive ENT inspection nml Neck: positive Nml inspection and Trachea midline Respiratory: positive Chest non-tender and No respiratory distress Cardiovascular: positive Regular rate & rhythm and No murmur Abdomen: positive Non-tender and No organomegaly Back: positive Nml inspection Skin: positive Color nml and No rash Extremities: positive Non-tender and Full ROM Neurologic/Psychiatric: positive Oriented x3 and CN's nml (2-12) Lab Results 04/10/24 05:28 04/10/24 05:28 Other Labs: Lab Results x24hrs 04/10/24 04/10/24 04/10/24 Range/Units 11:40 07:48 05:28 WBC 11.4 H (4.8-10.8) x10^3/uL RBC 4.32 (4.20-5.40) 10^6/uL Hgb 11.0 L (12.0-16.0) g/dL Hct 35.6 L (37.0-47.0) % MCV 82.4 (81.0-99.0) fL MCH 25.5 L (27.0-31.0) pg MCHC 30.9 L (32.0-36.0) g/dL RDW 15.2 H (12.0-15.0) % Plt Count 388 (130-450) 10^3/uL MPV 10.6 (7.9-10.8) fL Neut # (Auto) 7.6 H (1.5-6.6) 10^3/uL Lymph # (Auto) 2.1 (1.5-3.5) 10^3/uL [place] # (Auto) 0.9 (0.0-1.0) 10^3/uL Eos # (Auto) 0.5 (0.0-0.7) 10^3/uL Baso # (Auto) 0.1 (0.0-0.1) 10^3/uL Absolute Nucleated RBC 0.00 x10^3/uL Nucleated RBC % 0.0 /100WBC Sodium 137 (135-145) mmol/L Potassium 3.7 (3.5-4.5) mmol/L Chloride 98 L (101-111) mmol/L Carbon Dioxide 33 H (21-32) mmol/L Anion Gap 6.0 (6-13) BUN 17 (6-20) mg/dL Creatinine 1.0 (0.6-1.3) mg/dL Estimated GFR (MDRD) 54 L (>89) Glucose 100 (74-104) mg/dL POC Whole Bld Glucose 105 108 (70-100) mg/dL Calcium 8.5 (8.5-10.3) mg/dL 04/09/24 04/09/24 Range/Units 20:54 16:33 WBC (4.8-10.8) x10^3/uL RBC (4.20-5.40) 10^6/uL Hgb (12.0-16.0) g/dL Hct (37.0-47.0) % MCV (81.0-99.0) fL MCH (27.0-31.0) pg MCHC (32.0-36.0) g/dL RDW (12.0-15.0) % Plt Count (130-450) 10^3/uL MPV (7.9-10.8) fL Neut # (Auto) (1.5-6.6) 10^3/uL Lymph # (Auto) (1.5-3.5) 10^3/uL [place] # (Auto) (0.0-1.0) 10^3/uL Eos # (Auto) (0.0-0.7) 10^3/uL Baso # (Auto) (0.0-0.1) 10^3/uL Absolute Nucleated RBC x10^3/uL Nucleated RBC % /100WBC Sodium (135-145) mmol/L Potassium (3.5-4.5) mmol/L Chloride (101-111) mmol/L Carbon Dioxide (21-32) mmol/L Anion Gap (6-13) BUN (6-20) mg/dL Creatinine (0.6-1.3) mg/dL Estimated GFR (MDRD) (>89) Glucose (74-104) mg/dL POC Whole Bld Glucose 122 97 (70-100) mg/dL Calcium (8.5-10.3) mg/dL Diagnostic Imaging Diagnostic Imaging Results: positive Final report reviewed Assessment/Plan Problem List (1) Gram-negative bacteremia: Impression: Blood cultures from 04/05 showed E. coli bacteremia. Continue cefepime, last day of antibiotics is 04/11. Repeat blood cultures showed gram-positive cocci, staph epidermis, likely contaminant. Vancomycin discontinued. Afebrile, leukocytosis, resolving. Continue to trend. (2) Acute respiratory failure with hypoxia: Impression: Initial chest x-ray showed possible pulmonary edema. Patient is now on her home oxygen of 2 L. Continue home oral Lasix 40 mg daily. (3) Heart failure with reduced ejection fraction: Impression: Echocardiogram done on this admission shows severe reduced EF of 15 to 20%. No vegetations or mass on valves. Continue Lasix, metoprolol, lisinopril, spironolactone. (4) Acute exacerbation of chronic obstructive pulmonary disease: Impression: Continue DuoNebs as needed. Continue home oxygen of 2 L. (5) Lactic acidosis: Impression: Resolved. (6) Elevated liver enzymes: Impression: Resolved. (7) Type 2 diabetes mellitus: Impression: Continue insulin sliding scale. Qualifiers: Diabetes mellitus complication status: with other specified complication Diabetes mellitus terminal press operator insulin use: without terminal press operator use Qualified Code(s): E11.69 - Type 2 diabetes mellitus with other specified complication (8) Septic shock: Impression: Resolved. Off Levophed. Continue cefepime until 04/11. (9) Coronary artery disease: Impression: Continue statin and Plavix. Qualifiers: Associated angina: unspecified whether angina present Coronary Disease- Associated Artery/Lesion type: unspecified vessel or lesion type [place] vs. transplanted heart: [place] heart Qualified Code(s): I25.10 - Atherosclerotic heart disease of [place] coronary artery without angina pectoris
[2024-04-11 05:56] LABS: HCT - HEMATOCRIT 40.1 % (37.0-47.0); MEAN CORPUSCULAR HEMOGLOBIN 24.9 pg (27.0-31.0); MEAN CORPUSCULAR HGB CONC 29.9 g/dL (32.0-36.0); MEAN CORPUSCULAR VOLUME 83.2 fL (81.0-99.0); MEAN PLATELET VOLUME 10.7 fL (7.9-10.8); RED BLOOD COUNT 4.82 10^6/uL (4.20-5.40); RED CELL DISTRIBUTION WIDTH 15.3 % (12.0-15.0); WHITE BLOOD COUNT 12.4 x10^3/uL (4.8-10.8)
[2024-04-11 06:14] LABS: CALCIUM 8.8 mg/dL (8.5-10.3); POTASSIUM 3.9 mmol/L (3.5-4.5)
--- NOTE | 2024-04-11 11:05 | PROVIDER PROGRESS NOTE ---
Subjective Subjective Subjective: Patient is a 74-year-old female with history of COPD on 2 L of home oxygen, heart failure with reduced EF who presented due to worsening shortness of breath. She was found to have E. coli bacteremia. She is on cefepime, today is day 7 of 7 of her course. Patient medically cleared for discharge today. She will be going back to [facility], likely tomorrow. Current Medications Current Medications Current Medications: Current Medications Generic Name Dose Route Start Last Admin Trade Name Freq PRN Reason Stop Dose Admin Acetaminophen 650 mg 04/05/24 12:18 04/11/24 06:24 Acetaminophen 325 Mg Tablet PO 650 mg Q4HR PRN Administration Pain 1 to 4, or Fever Hydrocodone Bitart/Acetaminophen 1 tab 04/08/24 14:57 Hydrocod/Acetam 5/325 Mg Tablet PO Q12H PRN Moderate Pain (Level 4-6) Al Hydroxide/Mg Hydroxide 30 ml 04/05/24 13:54 Mag Hydrox/Al Hydrox/Simeth 30 Ml Udc PO Q4HR PRN INDIGESTION Albuterol 2.5 mg 04/08/24 14:56 Albuterol Neb 2.5 Mg/3 Ml INH RTQ6H PRN Wheezing Albuterol/Ipratropium 3 ml 04/05/24 12:31 Ipratropium/Albuterol 3 Ml Neb INH Q4HR PRN Wheezing Atorvastatin Calcium 40 mg 04/05/24 21:00 04/10/24 20:55 Atorvastatin 40 Mg Tablet PO 40 mg QPM BETTYE Administration Bisacodyl 10 mg 04/05/24 12:21 Bisacodyl 10 Mg Supp [place] DAILY PRN Constipation Calcium Carbonate/Glycine 500 mg 04/05/24 12:21 Calcium Carbonate Chew 500 Mg Tablet PO BID PRN Indigestion Carboxymethylcellulose 1 drops 04/05/24 21:05 04/05/24 21:41 Carboxymethylcellulose Ophth Drops EACHEYE 1 drops PRN PRN Administration Dry Eye Clopidogrel Bisulfate 75 mg 04/06/24 09:00 04/11/24 08:39 Clopidogrel 75 Mg Tablet PO 75 mg DAILY BETTYE Administration Cyanocobalamin 500 mcg 04/06/24 09:00 04/11/24 08:38 Cyanocobalamin 500 Mcg Tablet PO 500 mcg DAILY BETTYE Administration Diclofenac Sodium 2 gm 04/05/24 12:21 Diclofenac Sodium 1% Gel 50 Gm Tube TOP BID PRN PAIN 1-4 Diphenhydramine HCl 25 mg 04/05/24 12:21 Diphenhydramine 25 Mg Capsule PO BID PRN Allergy Symptoms Enoxaparin Sodium 40 mg 04/05/24 13:00 04/11/24 08:42 Enoxaparin 40 Mg/0.4 Ml Syringe SUBQ 40 mg DAILY BETTYE Administration Furosemide 40 mg 04/07/24 14:00 04/11/24 06:15 Furosemide 40 Mg Tablet PO 40 mg BIDDIURETIC BETTYE Administration Furosemide 40 mg 04/09/24 09:00 04/11/24 08:43 Furosemide 40 Mg Tablet PO Not Given DAILY [facility] Guaifenesin 600 mg 04/09/24 09:00 04/11/24 08:39 Guaifenesin 600 Mg Tablet PO [address] [facility] Administration Cefepime HCl 1 gm/ Sodium 100 mls @ 200 mls/hr 04/05/24 13:00 04/11/24 09:10 Chloride IV Infused BID [facility] Infusion Insulin Human Lispro 1 - 5 unit 04/05/24 17:00 04/11/24 08:36 Insulin Lispro 300 Unit/3 Ml Pen SUBQ Not Given 0800,1200,1700,2100 [facility] Protocol Lidocaine 1 patch 04/05/24 13:51 04/07/24 08:44 Lidocaine Patch 4% TOP 1 patch DAILY PRN Administration Pain 1-4 Lisinopril 2.5 mg 04/07/24 09:00 04/11/24 08:38 Lisinopril 5 Mg Tablet PO 2.[address] [facility] Administration Loperamide HCl 2 mg 04/05/24 12:21 04/05/24 21:42 Loperamide 2 Mg Capsule PO 2 mg QID PRN Administration Diarrhea Loperamide HCl 2 mg 04/08/24 15:00 Loperamide 2 Mg Capsule PO Q OTHER DAY [facility] Metoprolol Succinate 12.5 mg 04/07/24 09:00 04/11/24 08:37 Metoprolol Succinate 25 Mg Tablet PO 12.[address] [facility] Administration Mineral Oil 118 ml 04/08/24 14:03 Mineral Oil Enema 133 Ml Bottle [place] DAILY PRN constipation Multi-Ingredient Ointment 1 applic 04/05/24 21:44 04/10/24 10:30 Zinc Oxide 20% Oint 30 Gm Tube TOP 1 applic PRN PRN Administration Skin Care Nitroglycerin 0.4 mg 04/05/24 12:21 Nitroglycerin Sl 0.4 Mg Tablet SL Q5M PRN Chest Pain Nystatin 15 applic 04/05/24 12:21 04/07/24 20:51 Nystatin Powder 15 Gm TOP 15 applic BID PRN Administration inna intertrigo Ondansetron HCl 4 mg 04/05/24 12:18 Ondansetron Odt 4 Mg Tablet TL Q6HR PRN Nausea / Vomiting Pantoprazole Sodium 40 mg 04/06/24 07:00 04/11/24 06:15 Pantoprazole 40 Mg Tablet PO 40 mg QDAC BETTYE Administration Polyethylene Glycol 17 gm 04/05/24 12:21 Polyethylene Glycol 3350 17 Gm Packet PO DAILY PRN Constipation Potassium Chloride 20 meq 04/08/24 09:00 04/11/24 08:39 Potassium Chloride 10 Meq Capsule PO 20 meq DAILY BETTYE Administration Senna 17.2 mg 04/05/24 12:21 Senna 8.6 Mg Tablet PO DAILY PRN Constipation Sertraline HCl 75 mg 04/06/24 09:00 04/11/24 08:40 Sertraline 25 Mg Tablet PO 75 mg DAILY BETTYE Administration Sodium Chloride 10 ml 04/05/24 12:18 04/09/24 13:05 Sodium Chloride Flush 0.9% 10 Ml Syringe IVP 10 ml PRN PRN Administration NEEDED PER PROVIDER ORDERS Sodium Chloride 10 ml 04/05/24 17:00 04/11/24 08:40 Sodium Chloride Flush 0.9% 10 Ml Syringe IVP 10 ml 0100,0900,1700 BETTYE Administration Spironolactone 25 mg 04/06/24 09:00 04/11/24 08:38 Spironolactone 25 Mg Tablet PO 25 mg DAILY BETTYE Administration Zolpidem Tartrate 5 mg 04/05/24 12:18 Zolpidem 5 Mg Tablet PO QPM PRN Insomnia Objective Vital Signs/Intake & Output Reviewed Vital Signs: Yes Vital Signs: Vital Signs x48h Temp Pulse Resp BP Pulse Ox O2 Flow Rate 04/11/24 08:40 96.8 F L 53 L 20 138/56 H 97 2 Intake & Output: Intake & Output 04/08/24 04/09/24 04/10/24 04/11/24 23:59 23:59 23:59 23:59 Intake Total 1542 / 1542 1994 2320 / 2320 1080 / 1080 Output Total 1523 / 1523 2325 / 2325 2200 / 2200 300 / 300 Balance -330 / -330 120 / 120 780 / 780 Weight (kg) 97 kg 89 kg 88.5 kg 88.5 kg Objective General Appearance: positive No acute distress and Alert Eyes Bilateral: positive Normal inspection and PERRL ENT: positive ENT inspection nml Neck: positive Nml inspection and Trachea midline Respiratory: positive Chest non-tender and No respiratory distress Cardiovascular: positive Regular rate & rhythm and No murmur Abdomen: positive Non-tender and No organomegaly Back: positive Nml inspection Skin: positive Color nml and No rash Extremities: positive Non-tender and Full ROM Neurologic/Psychiatric: positive Oriented x3 and CN's nml (2-12) Lab Results 04/11/24 05:24 04/11/24 05:24 Other Labs: Lab Results x24hrs 04/11/24 04/11/24 04/10/24 Range/Units 07:46 05:24 20:54 WBC 12.4 H (4.8-10.8) x10^3/uL RBC 4.82 (4.20-5.40) 10^6/uL Hgb 12.0 (12.0-16.0) g/dL Hct 40.1 (37.0-47.0) % MCV 83.2 (81.0-99.0) fL MCH 24.9 L (27.0-31.0) pg MCHC 29.9 L (32.0-36.0) g/dL RDW 15.3 H (12.0-15.0) % Plt Count 411 (130-450) 10^3/uL MPV 10.7 (7.9-10.8) fL Sodium 136 (135-145) mmol/L Potassium 3.9 (3.5-4.5) mmol/L Chloride 97 L (101-111) mmol/L Carbon Dioxide 32 (21-32) mmol/L Anion Gap 7.0 (6-13) BUN 18 (6-20) mg/dL Creatinine 1.0 (0.6-1.3) mg/dL Estimated GFR (MDRD) 54 L (>89) Glucose 102 (74-104) mg/dL POC Whole Bld Glucose 118 108 (70-100) mg/dL Calcium 8.8 (8.5-10.3) mg/dL Magnesium 2.0 (1.7-2.3) mg/dL 04/10/24 04/10/24 Range/Units 16:58 11:40 WBC (4.8-10.8) x10^3/uL RBC (4.20-5.40) 10^6/uL Hgb (12.0-16.0) g/dL Hct (37.0-47.0) % MCV (81.0-99.0) fL MCH (27.0-31.0) pg MCHC (32.0-36.0) g/dL RDW (12.0-15.0) % Plt Count (130-450) 10^3/uL MPV (7.9-10.8) fL Sodium (135-145) mmol/L Potassium (3.5-4.5) mmol/L Chloride (101-111) mmol/L Carbon Dioxide (21-32) mmol/L Anion Gap (6-13) BUN (6-20) mg/dL Creatinine (0.6-1.3) mg/dL Estimated GFR (MDRD) (>89) Glucose (74-104) mg/dL POC Whole Bld Glucose 95 105 (70-100) mg/dL Calcium (8.5-10.3) mg/dL Magnesium (1.7-2.3) mg/dL Diagnostic Imaging Diagnostic Imaging Results: positive Final report reviewed Assessment/Plan Problem List (1) Gram-negative bacteremia: Impression: Blood cultures from 04/05 showed E. coli bacteremia. Continue cefepime, last day of antibiotics today. Repeat blood cultures showed gram-positive cocci, staph epidermis, likely contaminant. Vancomycin discontinued. Afebrile, leukocytosis, resolving. Continue to trend. (2) Acute respiratory failure with hypoxia: Impression: Initial chest x-ray showed possible pulmonary edema. Patient is now on her home oxygen of 2 L. Continue home oral Lasix 40 mg daily. (3) Heart failure with reduced ejection fraction: Impression: Echocardiogram done on this admission shows severe reduced EF of 15 to 20%. No vegetations or mass on valves. Continue Lasix, metoprolol, lisinopril, spironolactone. (4) Acute exacerbation of chronic obstructive pulmonary disease: Impression: Continue DuoNebs as needed. Continue home oxygen of 2 L. (5) Lactic acidosis: Impression: Resolved. (6) Elevated liver enzymes: Impression: Resolved. (7) Type 2 diabetes mellitus: Impression: Continue insulin sliding scale. Qualifiers: Diabetes mellitus complication status: with other specified complication Diabetes mellitus remote computer terminal operator insulin use: without remote computer terminal operator use Qualified Code(s): E11.69 - Type 2 diabetes mellitus with other specified complication (8) Septic shock: Impression: Resolved. Off Levophed. Continue cefepime until 04/11. (9) Coronary artery disease: Impression: Continue statin and Plavix. Qualifiers: Associated angina: unspecified whether angina present Coronary Disease- Associated Artery/Lesion type: unspecified vessel or lesion type [place] vs. transplanted heart: [place] heart Qualified Code(s): I25.10 - Atherosclerotic heart disease of [place] coronary artery without angina pectoris
[2024-04-11] MEDS ORDERED: LOPERAMIDE 2 MG CAPSULE PO PRN (12:25)
[2024-04-12 00:08] VITALS: TEMP 96.8
[2024-04-12 06:25] LABS: HCT - HEMATOCRIT 41.6 % (37.0-47.0); HGB - HEMOGLOBIN 12.6 g/dL (12.0-16.0); MEAN CORPUSCULAR HGB CONC 30.3 g/dL (32.0-36.0); MEAN CORPUSCULAR VOLUME 82.5 fL (81.0-99.0); MEAN PLATELET VOLUME 10.8 fL (7.9-10.8); RED BLOOD COUNT 5.04 10^6/uL (4.20-5.40); RED CELL DISTRIBUTION WIDTH 15.4 % (12.0-15.0); WHITE BLOOD COUNT 12.3 x10^3/uL (4.8-10.8)
[2024-04-12 06:42] LABS: POTASSIUM 4.1 mmol/L (3.5-4.5)
[2024-04-12 08:37] VITALS: BP 145/53; O2SAT 96
--- NOTE | 2024-04-12 10:12 | Discharge Summary ---
"Discharge Summary Admit Date: 04/05/24 Discharge Date: 04/12/24 Discharging Provider: Dr. Pietro [place] Code Status: Attempt Resuscitation Discharge Facility Name: [facility] DIAGNOSES Admission Diagnoses: Sepsis Acute respiratory failure with hypoxia Heart failure with reduced ejection fraction Acute exacerbation of COPD Pulmonary edema Healthcare associated pneumonia Lactic acidosis Elevated liver enzymes Type 2 diabetes mellitus Discharge Diagnoses with Status of Each Condition: Gram-negative bacteremiablood cultures from 04/05 showed E. coli bacteremia. Completed course of cefepime. Afebrile, leukocytosis stable. Advised to recheck blood work in approximately 1 week. Acute respiratory failure with hypoxiaresolved. Patient is now on her home oxygen of 2 L. Continue home dose of Lasix 40 mg daily. Heart failure with reduced ejection fractionecho shows severe reduced EF of 15 to 20%. Continue Lasix, metoprolol, Seroquel, spironolactone. Advised to follow-up with her sorting grapple operator outpatient. Acute exacerbation of COPDcontinue DuoNebs as needed. Patient is now back on her home oxygen of 2 L. Lactic acidosisresolved. Elevated liver enzymesresolved. Type 2 diabetes mellituscontinue insulin sliding scale. Septic shockresolved, off Levophed. Completed cefepime. Coronary artery diseasecontinue statin and Plavix. HPI History of Present Illness: Per Dr. Phan: Information was acquired from ED physician and previous chart notes. Patient is just moaning and barely answering questions. This is a 74 old female, resident of group home, with a past medical history of Diabetes type 2, COPD on 2 L home oxygen, heart failure with reduced EF, CAD and morbid obesity who presented to the ER Due to worsening shortness of breath. Apparently staff noticed patient having a cough and worsening shortness of breath at rest starting yesterday which worsened overnight. EMS was called and patient was transferred to the ED. Patient denies genital pain, denies nausea and vomiting. In the ED laboratory values indicated Sepsis, pt is febrile, Leukocytosis, elevated lactic acid, Elevated AST/ALT, elevated BNP, sinus tach. Chest x-ray indicates increased vascularity most likely pulm edema as well as underlying pneumonia. Patient was given Levaquin p.o. in the ER. ABGs pending. Patient is full code CONSULTS | PROCEDURES Consultations: Respiratory therapy, social work, physical therapy Procedures: Chest x-ray, blood cultures HOSPITAL COURSE Hospital Course: Patient is a 74-year-old female with a history of COPD on 2 L, heart failure with reduced ejection fraction, insulin-dependent diabetes mellitus who came from [facility] for worsening shortness of breath, as well as altered mentation. Chest x-ray showed pulmonary edema, as well as underlying pneumonia. A few days after admission, patient grew E. coli in her blood, which was sensitive to the cefepime. She completed a course of cefepime. She was initially on Levophed, this was weaned off. She has been afebrile. She was also noted to be fluid overloaded on exam. She was started on IV Lasix, which was transitioned to her home oral Lasix dose. She is now back on her home oxygen levels of 2 L. Overall, her condition is much improved. We will be discharging her back to [facility]. ALLERGIES Allergies Allergy/AdvReac Type Severity Reaction Status Date / Time Sulfa (Sulfonamide Allergy Hives Verified 08/09/23 14:00 Antibiotics) MEDICATIONS Ambulatory Orders Medication Instructions Recorded Confirmed nitroglycerin 0.4 mg sublingual 0.4 mg sublingual Q5M PRN Chest 06/22/19 04/05/24 tablet Pain albuterol sulfate 90 mcg/actuation 2 puff PO QID PRN Shortness Of 06/28/22 04/05/24 aerosol inhaler (Ventolin HFA) Air/Wheezing acetaminophen 325 mg tablet 650 mg (2 x 325 mg) PO Q4HR PRN 10/18/22 04/05/24 Pain 1 to 4, or Fever aspirin 81 mg tablet,delayed 81 mg PO DAILY CAD hx ##0 10/18/22 04/05/24 release atorvastatin 40 mg tablet 40 mg PO QPM hyperlipidemia ##0 10/18/22 04/05/24 clopidogrel 75 mg tablet 75 mg PO DAILY for CAD 10/18/22 04/05/24 cyanocobalamin (vitamin B-12) 500 500 mcg PO DAILY low B12 10/18/22 04/05/24 mcg tablet spironolactone 25 mg tablet 25 mg PO DAILY chornic systolic 10/18/22 04/05/24 (Aldactone) chf ##0 Lidocaine Patch 4% [Lidocaine Pain 1 patch topical DAILY PRN Pain 1-4 07/31/23 04/05/24 Relief] Mag Hydrox/Aluminum Hyd/Simeth 30 ml PO Q4H PRN Indigestion 07/31/23 04/05/24 [Alum-Mag Hydroxide-Simeth Cup] bisacodyl 10 mg rectal suppository 10 mg RC DAILY PRN Constipation 07/31/23 04/05/24 cranberry extract 500 mg tablet 2,000 mg PO DAILY 07/31/23 04/05/24 diclofenac sodium 1 % topical gel 1 applic topical BID PRN pain 07/31/23 04/05/24 (Arthritis Pain (diclofenac)) diphenhydramine HCl 25 mg capsule 25 mg PO BID PRN Allergy Symptoms 07/31/23 04/05/24 (Banophen) ipratropium 0.5 mg-albuterol 3 mg 3 ml NEB Q6H PRN Wheezing 07/31/23 04/05/24 (2.5 mg base)/3 mL nebulization soln metoprolol succinate 25 mg 12.5 mg PO DAILY 07/31/23 04/05/24 tablet,extended release 24 hr pantoprazole 20 mg tablet,delayed 20 mg PO DAILY 07/31/23 04/05/24 release (Protonix) potassium chloride 10 mEq 10 meq PO DAILY 07/31/23 04/05/24 capsule,extended release sennosides 8.6 mg tablet (Senna 17.2 mg PO DAILY PRN Constipation 07/31/23 04/05/24 Lax) sodium chloride 1,000 mg soluble 1 tab PO OAW 07/31/23 04/05/24 tablet furosemide 40 mg tablet 40 mg PO DAILY 08/01/23 04/05/24 glipizide 5 mg tablet 5 mg PO QDBREAKFAST 08/01/23 04/05/24 ondansetron 4 mg disintegrating 4 mg PO Q6H PRN Nausea / Vomiting 08/01/23 04/05/24 tablet polyethylene glycol 3350 17 gram 17 g PO DAILY PRN Constipation 08/01/23 04/05/24 oral powder packet calcium carbonate 500 mg (2.5 x 200 mg calcium (500 08/03/23 04/05/24 mg)) PO BID PRN Indigestion nystatin 100,000 unit/gram topical 15 applic topical BID PRN inna 08/03/23 04/05/24 powder (Nyamyc) intertrigo carboxymethylcellulose sodium 1 % 1 drp ophthalmic (eye) Q6H PRN dry 04/05/24 04/05/24 eye drops (Artificial Tears eye(s) (carboxymethylcellulose)) guaifenesin 600 mg tablet, 600 mg PO BID PRN congestion 04/05/24 04/05/24 extended release 12 hr hydrocodone 5 mg-acetaminophen 325 1 tab PO Q12H PRN pain 04/05/24 04/05/24 mg tablet lisinopril 2.5 mg tablet 2.5 mg PO DAILY 04/05/24 04/05/24 loperamide 2 mg capsule 2 mg PO Q OTHER DAY Diarrhea 04/05/24 04/05/24 mineral oil (Fleet Mineral Oil 118 ml [place] DAILY PRN constipation 04/05/24 04/05/24 enema) naloxone 4 mg/actuation nasal 4 mg intranasal Q2M 04/05/24 04/05/24 spray (Narcan) sertraline 25 mg tablet 75 mg PO DAILY 04/05/24 04/05/24 zinc oxide 20 % topical ointment 1 applic topical PRN PRN skin 04/05/24 04/05/24 (Endit (zinc oxide)) irritation PHYSICAL EXAM AT DISCHARGE General Appearance: positive No acute distress and Alert; negative Anxious Eyes Bilateral: positive Normal inspection, PERRL and EOMI ENT: positive ENT inspection nml, Pharynx nml and No signs of dehydration Neck: positive Nml inspection, Thyroid nml and No JVD Respiratory: positive Chest non-tender and No respiratory distress; negative Wheezes, Rales or Rhonchi Cardiovascular: positive Regular rate & rhythm and No murmur Peripheral Pulses: positive 2+ Abdomen: positive Non-tender; negative Tenderness, Guarding, Rebound, Hepatomegaly, Splenomegaly or Mass Back: positive Nml inspection; negative CVA tenderness (R) or CVA tenderness (L) Skin: positive Color nml, No rash and Warm Extremities: positive Non-tender, Full ROM and No pedal edema Neurologic/Psychiatric: positive Oriented x3 and Mood/affect nml LABS 04/12/24 05:47 04/12/24 05:47 DIAGNOSTIC IMAGING Diagnostic Imaging Results: Final report reviewed SEPSIS Current Stage of Sepsis: Resolved Possible source of Sepsis: Genitourinary Sepsis Criteria: Recorded Temperature greater than 38.3C or Less than 36C, WBC count greater than 10% bands, MAP less than 65 mmHg and Metabolic: lactate > 2 mmol/L QUALITY (Female Hip Fx Only) Was patient sent home on osteoporosis medication?: No FOLLOW UP Follow Up: Follow up with primary care provicer. Follow up with sorting grapple operator. TIME SPENT Time Spent in Discharge (Minutes): 40 Discharge Plan Discharge Patient Disposition: 03 SNF DC/Xfer Condition: Stable Prescriptions: Continued nitroglycerin 0.4 MG tablet, sublingual 0.4 mg sublingual Q5M PRN (Reason: Chest Pain) Patient Comments: DISSOLVE ONE TABLET UNDER THE TONGUE EVERY 5 MINUTES NEEDED FOR CHEST PAIN. DO NOT EXCEED A TOTAL OF 3 DOSES IN 15 MINUTES albuterol sulfate [Ventolin HFA] 200 PUFFS/18 GM HFA aerosol inhaler 2 puff PO QID PRN (Reason: Shortness Of Air/Wheezing) acetaminophen 325 MG tablet 650 mg PO Q4HR PRN (Reason: Pain 1 to 4, or Fever) 0RF clopidogrel 75 MG tablet 75 mg PO DAILY 0RF cyanocobalamin (vitamin B-12) 500 MCG tablet 500 mcg PO DAILY 0RF atorvastatin 40 MG tablet 40 mg PO QPM Qty: 0 0RF Patient Comments: TAKE ONE TABLET BY MOUTH NIGHTLY aspirin 81 MG tablet,delayed release (DR/EC) 81 mg PO DAILY Qty: 0 0RF Patient Comments: TAKE 1 TABLET BY MOUTH ONCE DAILY spironolactone [Aldactone] 25 MG tablet 25 mg PO DAILY Qty: 0 0RF sennosides [Senna Lax] 8.6 MG tablet 17.2 mg PO DAILY PRN (Reason: Constipation) Rx Instructions: FOR DAY 4 OF NO BM potassium chloride 10 MEQ capsule, extended release 10 meq PO DAILY ipratropium-albuterol 3 ML solution for nebulization 3 ml NEB Q6H PRN (Reason: Wheezing) pantoprazole [Protonix] 20 MG tablet,delayed release (DR/EC) 20 mg PO DAILY bisacodyl 10 MG suppository 10 mg RC DAILY PRN (Reason: Constipation) Rx Instructions: DAY 5 OF NO BM diphenhydramine HCl [Banophen] 25 MG capsule 25 mg PO BID PRN (Reason: Allergy Symptoms) metoprolol succinate 25 MG tablet extended release 24 hr 12.5 mg PO DAILY sodium chloride 1 GM tablet,soluble 1 tab PO OAW Rx Instructions: give on wed diclofenac sodium [Arthritis Pain (diclofenac)] 50 GM gel 1 applic topical BID PRN (Reason: pain) Rx Instructions: PAINFUL JOINTS cranberry extract 500 MG tablet 2,000 mg PO DAILY Lidocaine Patch 4% [Lidocaine Pain Relief] 1 PATCH Patch 1 patch topical DAILY PRN (Reason: Pain 1-4) Mag Hydrox/Aluminum Hyd/Simeth [Alum-Mag Hydroxide-Simeth Cup] 30 ML Oral.Susp 30 ml PO Q4H PRN (Reason: Indigestion) furosemide 40 MG tablet 40 mg PO DAILY ondansetron 4 MG tablet,disintegrating 4 mg PO Q6H PRN (Reason: Nausea / Vomiting) glipizide 5 MG tablet 5 mg PO QDBREAKFAST polyethylene glycol 3350 17 GM powder in packet 17 g PO DAILY PRN (Reason: Constipation) Rx Instructions: FOR DAY 3 OF NO BM nystatin [Nyamyc] 15 APPLIC/15 GM powder 15 applic topical BID PRN (Reason: inna intertrigo) 0RF calcium carbonate 500 MG tablet,chewable 500 mg PO BID PRN (Reason: Indigestion) 0RF hydrocodone-acetaminophen 5-325 mg tablet 1 tab PO Q12H PRN (Reason: pain) sertraline 25 mg tablet 75 mg PO DAILY lisinopril 2.5 mg tablet 2.5 mg PO DAILY zinc oxide [Endit (zinc oxide)] 20 % ointment 1 applic topical PRN PRN (Reason: skin irritation) naloxone [Narcan] 4 mg/actuation spray,non-aerosol 4 mg intranasal Q2M Rx Instructions: spray 1 dose into ONE nostril; alternate nostrils w each dose until help arrives mineral oil [Fleet Mineral Oil] Enema 118 ml CO DAILY PRN (Reason: constipation) Rx Instructions: discard any unused portion. FOR DAY 6 OF NO BM guaifenesin 600 mg tablet extended release 12hr 600 mg PO BID PRN (Reason: congestion) Artificial Tears (cmc) 1 % drops 1 drp ophthalmic (eye) Q6H PRN (Reason: dry eye(s)) loperamide 2 MG capsule 2 mg PO Q OTHER DAY Activity Restrictions: Activity as Tolerated Diet: Cardiac Health Concerns: You came in because you are feeling short of breath. You are found to have extra fluid on your lungs. We started you on a stronger IV water pill while you were here to get that extra fluid off. You are now back on your 2 L of oxygen. While you were here, you were also found to have an infection in your blood, likely from a urinary tract infection. You completed your course of antibiotics, and you are doing much better from that standpoint. Please continue to adhere to a low-sodium, fluid restricted diet. Please continue to take your medications as prescribed including your inhalers. We are glad you are feeling better, thank you for letting us take care of you. Print Language: [place] Patient Instructions: DASH Plan Eat Heart Healthy Food Stand Alone Forms: SNF Discharge, PCP List"
== END 2024-04-12 13:50 | DRG 871 ==
LOC: ED 10:46 → ICU 10:46 → MS2 04-08 17:35
PROVIDERS: ADMIT Internal Medicine; ATTEND Internal Medicine
DX: J44.1 Chronic obstructive pulmonary disease with (acute) exacerbation; E87.20 Acidosis, unspecified; J44.0 Chronic obstructive pulmonary disease with (acute) lower respiratory infection; Z87.891 Personal history of nicotine dependence; Z68.36 Body mass index [BMI] 36.0-36.9, adult; E11.9 Type 2 diabetes mellitus without complications; J18.9 Pneumonia, unspecified organism; Z99.81 Dependence on supplemental oxygen; I50.33 Acute on chronic diastolic (congestive) heart failure; J96.01 Acute respiratory failure with hypoxia; A41.9 Sepsis, unspecified organism; Z79.84 Long term (current) use of oral hypoglycemic drugs; E66.01 Morbid (severe) obesity due to excess calories; I50.23 Acute on chronic systolic (congestive) heart failure; N39.0 Urinary tract infection, site not specified; R65.21 Severe sepsis with septic shock; R74.8 Abnormal levels of other serum enzymes; A41.51 Sepsis due to Escherichia coli [E. coli]; I25.10 Atherosclerotic heart disease of native coronary artery without angina pectoris

== ENCOUNTER 2024-06-07 10:05 | Inpatient (IN) ==
[2024-06-07 10:54] LABS: BASOPHILS % (AUTO) 0.3 %; EOSINOPHILS % (AUTO) 1.2 %; HCT - HEMATOCRIT 37.7 % (37.0-47.0); HGB - HEMOGLOBIN 11.6 g/dL (12.0-16.0); LYMPHOCYTES % (AUTO) 8.2 %; MEAN CORPUSCULAR HEMOGLOBIN 24.7 pg (27.0-31.0); MEAN CORPUSCULAR HGB CONC 30.8 g/dL (32.0-36.0); MEAN CORPUSCULAR VOLUME 80.2 fL (81.0-99.0); MEAN PLATELET VOLUME 11.6 fL (7.9-10.8); MONOCYTES % (AUTO) 5.7 %; NEUTROPHILS % (AUTO) 83.9 %; PLT - PLATELET COUNT 340 10^3/uL (130-450); RED CELL DISTRIBUTION WIDTH 17.4 % (12.0-15.0); WHITE BLOOD COUNT 21.7 x10^3/uL (4.8-10.8)
[2024-06-07] MEDS: SODIUM CHLORIDE 0.9% 1,000 ML IV STA ×3 (10:55→14:39)
--- NOTE | 2024-06-07 11:00 | XRAY Report ---
PROCEDURE: XR Chest 1V INDICATIONS: history of CHF, COPD TECHNIQUE: One view of the chest was acquired. COMPARISON: Chest x-ray 05/21/2024 and 04/07/2024. FINDINGS: Surgical changes and devices: None. Lungs and pleura: No pleural effusions or pneumothorax. Left basilar opacity. Mediastinum: Mediastinal contours appear normal. Heart is enlarged. Small retrocardiac hiatal herni a. Bones and chest wall: No suspicious bony lesions. Overlying soft tissues appear unremarkable. IMPRESSION: No acute cardiopulmonary process. Reviewed by: Beckie Juarez MD, PhD on 06/07/2024 10:59 AM [facility] Approved by: Beckie Juarez MD, PhD on 06/07/2024 10:59 AM [facility] Station ID: [id number]
[2024-06-07 11:02] LABS: ABNORMAL LYMPHS % (MANUAL) 0 %; BAND NEUTROPHILS % (MANUAL) 0 %; PARTIAL THROMBOPLASTIN TIME 31.7 secs (24.9-33.3)
[2024-06-07 11:07] LABS: INR 1.3 (0.8-1.2); PT - PROTHROMBIN TIME 13.8 secs (9.9-12.6)
[2024-06-07 11:12] LABS: ALBUMIN 3.2 g/dL (3.2-5.5); BILIRUBIN,TOTAL 0.6 mg/dL (0.2-1.0); CALCIUM 8.9 mg/dL (8.5-10.3); CREATININE 2.4 mg/dL (0.6-1.3); MAGNESIUM 1.8 mg/dL (1.7-2.3); PHOSPHORUS 5.3 mg/dL (2.5-5.0); POTASSIUM 4.6 mmol/L (3.5-4.5); TOTAL PROTEIN 6.3 g/dL (6.4-8.9)
[2024-06-07 11:20] LABS: EOSINOPHILS # (MANUAL) 0.2 10^3/uL (0-0.7); LYMPHOCYTES # (MANUAL) 1.5 10^3/uL (1.5-3.5); LYMPHOCYTES % (MANUAL) 5 %; MONOCYTES # (MANUAL) 1.1 10^3/uL (0.0-1.0); MYELOCYTES % (MANUAL) 1 %; NEUTROPHILS # (MANUAL) 18.7 10^3/uL (1.5-6.6); REACTIVE LYMPHS % (MANUAL) 2 %
[2024-06-07 11:21] LABS: DIFFERENTIAL COMMENT MANUAL DIFFERENTIAL; RBC MORPHOLOGY (MULTIPLE) 3+ ANISOCYTOSIS (NORMAL)
--- NOTE | 2024-06-07 11:40 | CT Report ---
PROCEDURE: CT Abdomen/Pelvis WO INDICATIONS: LLQ tender, vomiting/diarrhea TECHNIQUE: A CT scan of the abdomen and pelvis was performed without the use of intravenous contrast. Images we re recorded and evaluated at appropriate window settings. Reformats: coronal and sagittal. For radiat ion dose reduction, the following was used: automated exposure control, adjustment of mA and/or kV ac cording to patient size. COMPARISON: 08/02/2023. FINDINGS: Image quality: Diagnostic. Lower chest: Hiatal hernia.. Liver: No contour-deforming mass. Gallbladder: Surgically absent. Biliary tree: No intrahepatic or extrahepatic dilation, accounting for age. Spleen: No splenomegaly. Pancreas: No pancreatic ductal dilation. Adrenals: No adrenal nodule. Kidneys and ureters: No hydronephrosis. No contour-deforming mass. Renal calcifications are likely va scular in nature. Stomach, bowel and peritoneum: No gastric or small bowel dilation. Mild sigmoid diverticulosis, recur rent. There is no free air or free fluid or abscess cavity. Lymph nodes: No central or retroperitoneal adenopathy. Vessels: No infrarenal aortic aneurysm. Reproductive organs: Unremarkable. Bladder: No is made of what appears to potentially be a cystic neoplasm of the fundus of the bladder. There is a suggestion of a possible contour deforming cystic mass which measures approximately 4 cm in diameter. Reference sagittal image 68 of series 6. There are also benign bilateral lateral diverti culi. Pelvic lymph nodes: No adenopathy by size criteria. Bones: No aggressive osseous abnormality. Other: No significant ventral or inguinal hernia. IMPRESSION: 1. Mild recurrent sigmoid diverticulitis. 2. Question benign cystic neoplasm of the fundus of the bladder. If this is present, it is typically a benign finding. 3. Hiatal hernia. 4. Remote cholecystectomy. Comment: Recommend nonemergent urological referral regarding the possible fundal bladder lesion. Reviewed by: Edouard Sainz MD on 06/07/2024 11:39 AM PST Approved by: Edouard Sainz MD on 06/07/2024 11:39 AM PST Station ID: [id number]
[2024-06-07] MEDS: cefTRIAXone 1 GM VIAL IVP STA (12:23)
[2024-06-07] MEDS: metroNIDAZOLE 500 MG/100 ML 500 MG/100 ML BAG IV ONE (12:34)
[2024-06-07 13:27] LABS: BILIRUBIN,URINE NEGATIVE (NEGATIVE); CLARITY,URINE CLEAR (CLEAR); GLUCOSE, URINE (UA) 100 mg/dL (NEGATIVE); KETONES,URINE (UA) NEGATIVE (NEGATIVE); LEUKOCYTE ESTERASE, URINE NEGATIVE (NEGATIVE); NITRITE,URINE NEGATIVE (NEGATIVE); OCCULT BLOOD,URINE NEGATIVE (NEGATIVE); PH,URINE 5.5 PH (5.0-7.5); PROTEIN,URINE NEGATIVE (NEGATIVE); UROBILINOGEN,URINE 0.2 (NORMAL) E.U./dL (NORMAL)
--- NOTE | 2024-06-07 15:02 | HISTORY & PHYSICAL EXAMINATION ---
Chief Complaint Chief Complaint Chief Complaint: abdominal pain, weakness History of Present Illness Admitted From Admitted From:: Emergency Department History Obtained From History obtained from: Patient History of Present Illness HPI Comment/Other: 74-year-old female with history of congestive heart failure, type 2 diabetes mellitus, diverticulitis, COPD, and hypertension presents with one week of abdominal cramping, diarrhea, and increased chest congestion. She was last seen 05/21/24 and was transferred to [facility] for suspected NSTEMI, however she reports she did not have any heart issue at that time and was instead treated for lung infection. She does feel her lung infection has cleared, however notes her lungs are "gurgling" and she is coughing more than normal. She notes 1 week of intermittent cramping abdominal pain, mostly in the suprapubic and left lower abdominal areas. She was given an anti-nausea medication and Imodium for diarrhea with minimal improvement. She thinks her last bowel movement was 1-2 days ago, she does not think it was bloody, dark, or tarry. She last vomited yesterday and describes the emesis as liquidy without blood or coffee-ground appearance. She has not been eating or drinking for several days due to very decreased appetite, nausea, and vomiting. Today she states her abdominal discomfort has slowly improved, but she is feeling very weak and fatigued due to sickness and not eating or drinking. She was brought in today from [facility] due to elevated white count to 26.7. She denies chest pain, increased work of breathing, hemoptysis, headache, back pain, edema, skin rash, hematemesis, coffee-ground emesis, dark or bloody stool. Meds/Allgy Home Medications Ambulatory Orders Medication Instructions Recorded Confirmed albuterol sulfate 90 mcg/actuation 2 puff PO QID PRN Shortness Of 06/28/22 06/07/24 aerosol inhaler (Ventolin HFA) Air/Wheezing aspirin 81 mg tablet,delayed 81 mg PO DAILY CAD hx ##0 10/18/22 06/07/24 release atorvastatin 40 mg tablet 40 mg PO QPM hyperlipidemia ##0 10/18/22 06/07/24 clopidogrel 75 mg tablet 75 mg PO DAILY for CAD 10/18/22 06/07/24 cyanocobalamin (vitamin B-12) 500 500 mcg PO DAILY low B12 10/18/22 06/07/24 mcg tablet spironolactone 25 mg tablet 25 mg PO DAILY chornic systolic 10/18/22 06/07/24 (Aldactone) chf ##0 bisacodyl 10 mg rectal suppository 10 mg RC DAILY PRN Constipation 07/31/23 06/07/24 cranberry extract 500 mg tablet 2,000 mg PO DAILY 07/31/23 06/07/24 ipratropium 0.5 mg-albuterol 3 mg 3 ml NEB Q6H PRN Wheezing 07/31/23 06/07/24 (2.5 mg base)/3 mL nebulization soln metoprolol succinate 25 mg 25 mg PO DAILY 07/31/23 06/07/24 tablet,extended release 24 hr sennosides 8.6 mg tablet (Senna 17.2 mg PO DAILY PRN Constipation 07/31/23 06/07/24 Lax) furosemide 40 mg tablet 40 mg PO DAILY 08/01/23 06/07/24 glipizide 5 mg tablet 5 mg PO QDBREAKFAST 08/01/23 06/07/24 ondansetron 4 mg disintegrating 4 mg PO Q6H PRN Nausea / Vomiting 08/01/23 06/07/24 tablet polyethylene glycol 3350 17 gram 17 g PO DAILY PRN Constipation 08/01/23 06/07/24 oral powder packet lisinopril 2.5 mg tablet 2.5 mg PO DAILY 04/05/24 06/07/24 loperamide 2 mg capsule 2 mg PO Q6H PRN Diarrhea 04/05/24 06/07/24 mineral oil (Fleet Mineral Oil 118 ml OH DAILY PRN constipation 04/05/24 06/07/24 enema) sertraline 25 mg tablet 75 mg PO DAILY 04/05/24 06/07/24 zinc oxide 20 % topical ointment 1 applic topical PRN PRN skin 04/05/24 06/07/24 (Endit (zinc oxide)) irritation empagliflozin 10 mg tablet 10 mg PO DAILY 06/07/24 06/07/24 (Jardiance) enoxaparin 40 mg/0.4 mL 40 mg subcut DAILY 06/07/24 06/07/24 subcutaneous syringe insulin lispro 100 unit/mL 2 - 10 unit subcut ACHS 06/07/24 06/07/24 subcutaneous pen pantoprazole 40 mg tablet,delayed 40 mg PO DAILY 06/07/24 06/07/24 release potassium chloride 20 mEq 20 meq PO BID 06/07/24 06/07/24 tablet,extended release(part/cryst) Allergies Allergies Allergy/AdvReac Type Severity Reaction Status Date / Time Sulfa (Sulfonamide Allergy Hives Verified 06/07/24 10:23 Antibiotics) [facility] Active Problems All Active Problems (Updated 06/07/24 @ 16:29 by Pietro Park MD) Acute dehydration (Acute) YARED (acute kidney injury) (Acute) Leukocytosis (Acute) Acute diverticulitis (Acute) Vomiting (Acute) Diarrhea (Acute) Human metapneumovirus pneumonia (Acute) Acute non-ST elevation myocardial infarction (NSTEMI) (Acute) Acute exacerbation of CHF (congestive heart failure) (Acute) Gram-negative bacteremia (Acute) Septic shock (Acute) Type 2 diabetes mellitus (Acute) Heart failure with reduced ejection fraction (Acute) Sepsis secondary to UTI (Acute) Hypotension (Acute) Urinary retention (Acute) UTI (urinary tract infection) (Acute) Hypoxia (Acute) Physical deconditioning (Acute) Chronic respiratory failure with hypoxia, on home O2 therapy (Acute) Morbid obesity with BMI of 40.0-44.9, adult (Acute) Yeast dermatitis (Acute) Cor pulmonale (Acute) Exertional shortness of breath (Acute) Acute and chronic respiratory failure with hypoxia (Acute) Acute cor pulmonale without pulmonary embolism (Acute) Acute on chronic systolic heart failure (Acute) Loculated pleural effusion (Acute) COPD with exacerbation (Acute) Thi infection of flexural skin (Acute) Noncompliance (Acute) Diarrhea (Acute) Acute exacerbation of CHF (congestive heart failure) (Acute) Acute exacerbation of chronic obstructive pulmonary disease (COPD) (Acute) Leukocytosis (Acute) Morbid obesity with BMI of 45.0-49.9, adult (Chronic) Moderate COPD (chronic obstructive pulmonary disease) (Chronic) Coronary artery disease (Chronic) Congestive heart failure (Chronic) Thi rash of groin (Chronic) Depression (Chronic) Requires continuous at home supplemental oxygen (Chronic) CAD S/P percutaneous coronary angioplasty (Chronic) COPD with emphysema (Chronic) HTN (hypertension) (Chronic) Social History Social History (Updated 04/05/24 @ 10:59 by Gretta Torres RN) Smoking Status: Former smoker If you are a former smoker, when did you quit? (Date/Year): 2019 Number of Years Smoked: 55 How many cigarettes a day do you smoke? (20 cigarettes=1 Pk): 20 Do you dip or chew tobacco?: No Do you vape?: No Patient requests smoking cessation consult: No Initiate information on smoking cessation: No Living arrangement: At home (rental property on her brother's property) Living Condition: Alone (Brother lives next door.) Relationship: Level: Assisted Home Mobility Equipment: Wheeled walker and Wheelchair Do you feel safe in your home environment?: Yes Suffered physical, verbal, emotional, or financial abuse?: No History of Abuse: No ETOH Use: None Substance Use: denies use POLST Patient has POLST: No POLST Status: WantsDNI/but CPR&defib OK Review of Systems Patient is laying in bed on her cellphone. She is pleasant, alert, oriented, and cooperative. Status of ROS: 10 or more systems reviewed and unremarkable except as noted in history and below Constitutional Reports: Fatigue, Weakness, Changes in appetite or eating habits and Poor appetite Eyes Denies: Pain, Irritation, Blurry vision or Floaters Ears, nose, mouth, and throat Denies: Ear pain, Ear discharge, Hearing loss, Throat pain, Neck pain or Throat swelling Cardiovascular Reports: lightheadedness; Denies: Irregular heart rate, chest pain, palpitations, edema, swelling of feet/ankles, Syncope or shortness of breath with exertion Respiratory Reports: Cough, Sputum production and Chest congestion; Denies: Shortness of breath, Change in phlegm color or Wheezing Gastrointestinal Reports: Abdominal pain (1 week of suprapubic and LLQ discomfort), Nausea, Vomiting (last emesis 1 day ago), Poor appetite and Diarrhea (last bowel movement 1-2 days ago); Denies: Abdominal distention, Bile emesis, Lex blood emesis, Coffee grounds in vomit, Heartburn, Constipation, Bloating, Belching, Painful bowel movements, Rectal bleeding, Rectal pain, Blood in stool, Mucus in stool, White/light colored stool or Fatty stool Genitourinary Denies: Painful urination, Urinary frequency, Urinary urgency, Blood in urine, Difficulty voiding, Flank pain or Genital itching Musculoskeletal Denies: Back pain, Neck pain or Extremity pain Integumentary/Breast Denies: Rash, Itching, Dryness, Redness or Skin pain Neurological Reports: General weakness; Denies: Headache, Focal weakness, Weakness in extremities or Numbness in extremities Psychiatric Denies: Depression, Anxiety, Mood swings, Panic attacks or Change in sleep pattern Endocrine Reports: Fatigue; Denies: Excessive urination, Excessive thirst or Polyphagia Hematologic/Lymphatic Reports: Easy bruising Allergic/Immunologic Denies: Hives, Throat swelling or Wheezing Prior Level of Functionality: Living at [facility]. Has assistance with ADLs, walks short distances with walker Exam Exam Payton is laying in bed on her back using her cellphone. She is alert, cooperative, pleasant, and fully oriented. Constitutional abnormal general appearance (chronically ill), abnormal body habitus (obese) and alert HENMT normocephalic, head/scalp atraumatic and hearing grossly normal bilaterally Eyes PERRL, EOMs intact bilaterally and no scleral icterus Neck/C-Spine visual inspection normal Chest inspection of chest normal and palpation of chest normal Respiratory breath sounds equal bilaterally, normal respiratory effort and auscultation abnormal (bilateral crackles, upper > lower lobes) Cardiovascular normal heart rate noted, regular rhythm noted, no murmur, no JVD and no edema Gastrointestinal abdomen normal to inspection, abdomen soft to palpation, tender to palpation (mild) and (LLQ), nondistended and normoactive bowel sounds Genitourinary no CVA tenderness Extremities normal to inspection Neurology mate fishing vessel II-XII intact Skin skin color normal, no rash and no lesions Conclusion/Plan Problem List (1) Acute diverticulitis: Plan: Acute diverticulitis seen on CT abdomen/pelvis and she has had vomiting and diarrhea for the past 1 week. Unable to tolerate food or fluids PO. She has already received one dose of IV 1mg Ceftriaxone, we will add on Metronidazole. - IV Normal saline; continue cautious IVF replacement due to longstanding history of CHF with reduced EF - Continue Ceftriaxone at 2g IV daily - Start metronidazole 500mg IV q8h (2) YARED (acute kidney injury): Plan: Creatinine increased to 2.4 baseline 1.0-1.1. Likely secondary to dehydration due to decreased food and fluid intake. We will monitor with daily BMP. - IV normal saline - Hold furosemide, spironolactone, and potassium. (3) Acute dehydration: Plan: Vomiting and diarrhea for the past 1 week. Unable to tolerate food or fluids PO. We will monitor with daily BMP. - IV normal saline (4) Leukocytosis: Plan: WBC elevated to 26 yesterday, still elevated to 21 today. We will monitor improvement on IV antibiotics with daily CBC. Qualifiers: Leukocytosis type: unspecified Qualified Code(s): D72.829 - Elevated white blood cell count, unspecified (5) Congestive heart failure: Plan: No acute exacerbation - no edema, JVD, chest pain. - Continue home medications with Metoprolol parameters to hold if SBP <90 or pulse less than 60bpm - Hold EARL-I, spirnolactone, Lasix at this time due to YARED and dehydration Qualifiers: Heart failure chronicity: unspecified Heart failure type: unspecified Qualified Code(s): I50.9 - Heart failure, unspecified (6) Type 2 diabetes mellitus: Plan: Chronic without acute concerns or symptoms. - Sliding scale insulin Qualifiers: Diabetes mellitus complication status: with other specified complication Diabetes mellitus terminal gauger supervisor insulin use: without terminal gauger supervisor use Qualified Code(s): E11.69 - Type 2 diabetes mellitus with other specified complication Lab Results Lab results reviewed: Yes 06/07/24 10:46 06/07/24 10:46 Diagnostic Imaging Results Diagnostic Imaging Results: positive Final report reviewed EKG Results EKG Interpreted Independently: Yes
--- NOTE | 2024-06-07 15:32 | ED Physician Documentation ---
PD HPI NVD Stated complaint Stated Complaint: "HIGH WHITE COUNT" Chief complaint Chief Complaint: General History obtained from History obtained from: Patient (Patient has had lower abdominal pain associated with nausea and vomiting as well as diarrhea for several days. Feeling generally weak. Noted to be hypotensive today by caregivers at [facility].), EMS and Caregiver History of Present Illness Associated symptoms: Abdominal pain and Dizzy (lightheaded, nausea and vomiting and diarrhea for several days. ); No Fever or Melena Contributing factors: Recent antibiotics (couple weeks ago) Similar symptoms before: Diagnosis Recently seen: Admitted (Seen recently for pneumonia versus CHF and transferred to [facility] in [place] due to lack of beds at our facility. She states she was there 9 days and developed gastroenteritis as well. Has been back at [facility] for the past week.) Meds/Allgy Home Medications Ambulatory Orders Medication Instructions Recorded Confirmed nitroglycerin 0.4 mg sublingual 0.4 mg sublingual Q5M PRN Chest 06/22/19 04/05/24 tablet Pain albuterol sulfate 90 mcg/actuation 2 puff PO QID PRN Shortness Of 06/28/22 04/05/24 aerosol inhaler (Ventolin HFA) Air/Wheezing acetaminophen 325 mg tablet 650 mg (2 x 325 mg) PO Q4HR PRN 10/18/22 04/05/24 Pain 1 to 4, or Fever aspirin 81 mg tablet,delayed 81 mg PO DAILY CAD hx ##0 10/18/22 04/05/24 release atorvastatin 40 mg tablet 40 mg PO QPM hyperlipidemia ##0 10/18/22 04/05/24 clopidogrel 75 mg tablet 75 mg PO DAILY for CAD 10/18/22 04/05/24 cyanocobalamin (vitamin B-12) 500 500 mcg PO DAILY low B12 10/18/22 04/05/24 mcg tablet spironolactone 25 mg tablet 25 mg PO DAILY chornic systolic 10/18/22 04/05/24 (Aldactone) chf ##0 Lidocaine Patch 4% [Lidocaine Pain 1 patch topical DAILY PRN Pain 1-4 07/31/23 04/05/24 Relief] Mag Hydrox/Aluminum Hyd/Simeth 30 ml PO Q4H PRN Indigestion 07/31/23 04/05/24 [Alum-Mag Hydroxide-Simeth Cup] bisacodyl 10 mg rectal suppository 10 mg RC DAILY PRN Constipation 07/31/23 04/05/24 cranberry extract 500 mg tablet 2,000 mg PO DAILY 07/31/23 04/05/24 diclofenac sodium 1 % topical gel 1 applic topical BID PRN pain 07/31/23 04/05/24 (Arthritis Pain (diclofenac)) diphenhydramine HCl 25 mg capsule 25 mg PO BID PRN Allergy Symptoms 07/31/23 04/05/24 (Banophen) ipratropium 0.5 mg-albuterol 3 mg 3 ml NEB Q6H PRN Wheezing 07/31/23 04/05/24 (2.5 mg base)/3 mL nebulization soln metoprolol succinate 25 mg 12.5 mg PO DAILY 07/31/23 04/05/24 tablet,extended release 24 hr pantoprazole 20 mg tablet,delayed 20 mg PO DAILY 07/31/23 04/05/24 release (Protonix) potassium chloride 10 mEq 10 meq PO DAILY 07/31/23 04/05/24 capsule,extended release sennosides 8.6 mg tablet (Senna 17.2 mg PO DAILY PRN Constipation 07/31/23 04/05/24 Lax) sodium chloride 1,000 mg soluble 1 tab PO OAW 07/31/23 04/05/24 tablet furosemide 40 mg tablet 40 mg PO DAILY 08/01/23 04/05/24 glipizide 5 mg tablet 5 mg PO QDBREAKFAST 08/01/23 04/05/24 ondansetron 4 mg disintegrating 4 mg PO Q6H PRN Nausea / Vomiting 08/01/23 04/05/24 tablet polyethylene glycol 3350 17 gram 17 g PO DAILY PRN Constipation 08/01/23 04/05/24 oral powder packet calcium carbonate 500 mg (2.5 x 200 mg calcium (500 08/03/23 04/05/24 mg)) PO BID PRN Indigestion nystatin 100,000 unit/gram topical 15 applic topical BID PRN inna 08/03/23 04/05/24 powder (Nyamyc) intertrigo carboxymethylcellulose sodium 1 % 1 drp ophthalmic (eye) Q6H PRN dry 04/05/24 04/05/24 eye drops (Artificial Tears eye(s) (carboxymethylcellulose)) guaifenesin 600 mg tablet, 600 mg PO BID PRN congestion 04/05/24 04/05/24 extended release 12 hr hydrocodone 5 mg-acetaminophen 325 1 tab PO Q12H PRN pain 04/05/24 04/05/24 mg tablet lisinopril 2.5 mg tablet 2.5 mg PO DAILY 04/05/24 04/05/24 loperamide 2 mg capsule 2 mg PO Q OTHER DAY Diarrhea 04/05/24 04/05/24 mineral oil (Fleet Mineral Oil 118 ml TN DAILY PRN constipation 04/05/24 04/05/24 enema) naloxone 4 mg/actuation nasal 4 mg intranasal Q2M 04/05/24 04/05/24 spray (Narcan) sertraline 25 mg tablet 75 mg PO DAILY 04/05/24 04/05/24 zinc oxide 20 % topical ointment 1 applic topical PRN PRN skin 04/05/24 04/05/24 (Endit (zinc oxide)) irritation Allergies Allergies Allergy/AdvReac Type Severity Reaction Status Date / Time Sulfa (Sulfonamide Allergy Hives Verified 06/07/24 10:23 Antibiotics) PFSH Active Problems All Active Problems (Updated 06/07/24 @ 14:18 by Alcides Yun MD) Acute dehydration (Acute) YARED (acute kidney injury) (Acute) Leukocytosis (Acute) Acute diverticulitis (Acute) Vomiting (Acute) Diarrhea (Acute) Human metapneumovirus pneumonia (Acute) Acute non-ST elevation myocardial infarction (NSTEMI) (Acute) Acute exacerbation of CHF (congestive heart failure) (Acute) Gram-negative bacteremia (Acute) Septic shock (Acute) Type 2 diabetes mellitus (Acute) Heart failure with reduced ejection fraction (Acute) Sepsis secondary to UTI (Acute) Hypotension (Acute) Urinary retention (Acute) UTI (urinary tract infection) (Acute) Hypoxia (Acute) Physical deconditioning (Acute) Chronic respiratory failure with hypoxia, on home O2 therapy (Acute) Morbid obesity with BMI of 40.0-44.9, adult (Acute) Yeast dermatitis (Acute) Cor pulmonale (Acute) Exertional shortness of breath (Acute) Acute and chronic respiratory failure with hypoxia (Acute) Acute cor pulmonale without pulmonary embolism (Acute) Acute on chronic systolic heart failure (Acute) Loculated pleural effusion (Acute) COPD with exacerbation (Acute) Inna infection of flexural skin (Acute) Noncompliance (Acute) Diarrhea (Acute) Acute exacerbation of CHF (congestive heart failure) (Acute) Acute exacerbation of chronic obstructive pulmonary disease (COPD) (Acute) Leukocytosis (Acute) Morbid obesity with BMI of 45.0-49.9, adult (Chronic) Moderate COPD (chronic obstructive pulmonary disease) (Chronic) Coronary artery disease (Chronic) Congestive heart failure (Chronic) Inna rash of groin (Chronic) Depression (Chronic) Requires continuous at home supplemental oxygen (Chronic) CAD S/P percutaneous coronary angioplasty (Chronic) COPD with emphysema (Chronic) HTN (hypertension) (Chronic) Social History Social History (Updated 04/05/24 @ 10:59 by Gretta Torres RN) Smoking Status: Former smoker If you are a former smoker, when did you quit? (Date/Year): 2019 Number of Years Smoked: 55 How many cigarettes a day do you smoke? (20 cigarettes=1 Pk): 20 Do you dip or chew tobacco?: No Do you vape?: No Patient requests smoking cessation consult: No Initiate information on smoking cessation: No Living arrangement: At home (rental property on her brother's property) Living Condition: Alone (Brother lives next door.) Relationship: Level: Assisted Home Mobility Equipment: Wheeled walker and Wheelchair Do you feel safe in your home environment?: Yes Suffered physical, verbal, emotional, or financial abuse?: No History of Abuse: No ETOH Use: None Substance Use: denies use POLST Patient has POLST: No POLST Status: WantsDNI/but CPR&defib OK Exam Exam initial BP low. EMS gave some fluids started enroute but minimal due to short transport. Constitutional normal general appearance and average body habitus HENMT normocephalic Lymph no lymphadenopathy noted Respiratory breath sounds equal bilaterally, normal respiratory effort and clear to auscultation bilaterally Cardiovascular normal heart rate noted, regular rhythm noted and edema noted (miniumal edema in lower legs both sides. ) Gastrointestinal abdomen soft to palpation, tender to palpation (moderate) and (LLQ), nontender to percussion and nondistended Genitourinary no CVA tenderness Extremities normal to inspection and no tenderness Psychiatry mental status grossly normal, oriented x3, thought process normal and cooperative Skin skin color normal Results Vitals Vitals: Vital Signs - 24 hr 06/07/24 10:18 06/07/24 10:52 06/07/24 11:35 Temperature 35.9 C L Temperature Source Temporal Artery Scan Pulse Rate 66 64 Respiratory Rate 18 20 Blood Pressure 78/49 L 102/36 L O2 Saturation 99 97 Oxygen Delivery Method Nasal Cannula O2 Source Room air Room air If not protocol: Oxygen Flow, liters/minute 2 Pain Intensity 0 06/07/24 11:53 06/07/24 12:00 06/07/24 12:30 Temperature Temperature Source Pulse Rate 65 64 68 Respiratory Rate 16 15 21 Blood Pressure 98/42 L 131/42 H 106/63 O2 Saturation 97 99 100 Oxygen Delivery Method O2 Source Nasal cannula Nasal cannula Nasal cannula If not protocol: Oxygen Flow, liters/minute 2 2 2 Pain Intensity 0 0 0 06/07/24 13:00 06/07/24 14:00 Temperature Temperature Source Pulse Rate 65 62 Respiratory Rate 17 18 Blood Pressure 99/51 L 108/72 O2 Saturation 100 94 Oxygen Delivery Method O2 Source Nasal cannula Room air If not protocol: Oxygen Flow, liters/minute 2 Pain Intensity 0 0 Oxygen O2 Source [Without Activity] Nasal cannula O2 Source [With Activity] Nasal cannula O2 Source Room air Labs Labs: Laboratory Tests 06/07/24 06/07/24 10:46 13:16 WBC 21.7 H RBC 4.70 Hgb 11.6 L Hct 37.7 MCV 80.2 L MCH 24.7 L MCHC 30.8 L RDW 17.4 H Plt Count 340 MPV 11.6 H Neut # (Auto) Not Reportable Lymph # (Auto) Not Reportable [place] # (Auto) Not Reportable Eos # (Auto) Not Reportable Baso # (Auto) Not Reportable Absolute Nucleated RBC Not Reportable Total Counted 100 Band Neuts % (Manual) 0 Reactive Lymphs % (Man) 2 Abnorm Lymph % (Manual) 0 Myelocytes % 1 H Nucleated RBC % Not Reportable Neutrophils # (Manual) 18.7 H Lymphocytes # (Manual) 1.5 Monocytes # (Manual) 1.1 H Eosinophils # (Manual) 0.2 Basophils # (Manual) 0.0 Differential Comment MANUAL DIFFERENTIAL RBC Morph Micro Appear 3+ ANISOCYTOSIS PT 13.8 H INR 1.3 H APTT 31.7 Sodium 131 L Potassium 4.6 H Chloride 97 L Carbon Dioxide 24 Anion Gap 10.0 BUN 71 H Creatinine 2.4 H Estimated GFR (MDRD) 20 L Glucose 109 H Lactic Acid 1.2 Calcium 8.9 Phosphorus 5.3 H Magnesium 1.8 Total Bilirubin 0.6 AST 11 ALT 12 Alkaline Phosphatase 63 Total Protein 6.3 L Albumin 3.2 Globulin 3.1 Albumin/Globulin Ratio 1.0 Lipase 30 Urine Color YELLOW Urine Clarity CLEAR Urine pH 5.5 Ur Specific [place] 1.020 Urine Protein NEGATIVE Urine Glucose (UA) 100 H Urine Ketones NEGATIVE Urine Occult Blood NEGATIVE Urine Nitrite NEGATIVE Urine Bilirubin NEGATIVE Urine Urobilinogen 0.2 (NORMAL) Ur Leukocyte Esterase NEGATIVE Ur Microscopic Review NOT INDICATED Urine Culture Comments NOT INDICATED PD Medical Decision Making ED course Complexity details: reviewed results, considered differential and d/w patient ED course: The patient had recent been hospitalized for initial impression at our facility CHF versus pneumonia incentive [facility]. We had contacted them for discharge summary from their facility but of not yet received it. Patient states she was there for about 9 days and developed vomiting and diarrhea type symptoms as well while there but those had improved. Treated for apparently pneumonia. She was back to her facility at [facility]. For the past several days she has had some mid to lower left abdominal pain associated with nausea and episodic vomiting and bouts of diarrhea. She states she gets cleaned up by caregivers there and has not noticed whether there was any notice of blood or melena. No reports from [facility] about bloody stools. Just the diarrhea. Given the recent hospitalization and antibiotics and such within the last few weeks, it be prudent to obtain a stool sample and test for C. difficile. However she does have localized lower abdominal tenderness and consideration would also be for processes such as diverticulitis. Both could be true. On arrival here she was still somewhat hypotensive and that had been noted this morning at [facility]. She had had less oral intake and had had volume loss with vomiting and diarrhea for the last few days so I presume volume depletion. She states she had not been able to take her oral medicines recently including blood pressure medicine and diuretic which is a good thing at this point. She was given IV fluids and her blood pressure did improve. Most recent is 109/42. The diastolic is still low suggesting still needing volume replacement. More IV fluids was given. She had also been given Zofran for nausea. With concern for intra-abdominal process such as diverticulitis, CT scan was done and did show that as problem. There was some sigmoid diverticulitis. With that I ordered Rocephin and Flagyl IV. The patient is feeling more comfortable here. Less nausea. Blood tests are showing a creatinine of 2.4 which is up from her previous baseline. Her white count is elevated at 21,000. She had had her blood count on yesterday drawn at the facility and was 25,000 so it is slightly improved but essentially still high. Creatinine yesterday was 1.9 so is more elevated even today suggesting the volume depletion. Her potassium is within reasonable range. The patient does have the acute kidney injury as well as volume depletion and transient hypotension presumably related to volume depletion. Lactate is normal. She is afebrile here and nontachycardic. I do not believe she is septic. She is ill enough to warrant hospitalization. I talked with the hospitalist who is in agreement and will see the patient. Discharge Plan Discharge Patient Disposition: [facility] DC/Xfer Condition: Stable Clinical Impression: Acute diverticulitis, Leukocytosis, YARED (acute kidney injury), Acute dehydration
[2024-06-07] MEDS ORDERED: ONDANSETRON 4 MG/2 ML VIAL IVP PRN (15:42)
[2024-06-07] MEDS ORDERED: ONDANSETRON ODT 4 MG TABLET TL PRN (15:42)
[2024-06-07] MEDS ORDERED: ACETAMINOPHEN 325 MG TABLET PO PRN (15:42)
[2024-06-07] MEDS ORDERED: HYDROcod/ACETAM 5/325 MG TABLET PO PRN (15:45)
[2024-06-07] MEDS ORDERED: CARBOXYMETHYLCELLULOSE OPHTH DROPS EACHEYE PRN (15:48)
--- NOTE | 2024-06-07 16:03 | PHARMACY PROGRESS NOTE ---
Best Possible Medication History Admit Date and Time: 06/07/24 196911 Home Medications Medication Instructions Recorded Confirmed Type albuterol sulfate 90 mcg/actuation 2 puff PO QID PRN Shortness Of 06/28/22 06/07/24 History aerosol inhaler (Ventolin HFA) Air/Wheezing aspirin 81 mg tablet,delayed 81 mg PO DAILY CAD hx ##0 10/18/22 06/07/24 Rx release atorvastatin 40 mg tablet 40 mg PO QPM hyperlipidemia ##0 10/18/22 06/07/24 Rx clopidogrel 75 mg tablet 75 mg PO DAILY for CAD 10/18/22 06/07/24 Rx cyanocobalamin (vitamin B-12) 500 500 mcg PO DAILY low B12 10/18/22 06/07/24 Rx mcg tablet spironolactone 25 mg tablet 25 mg PO DAILY chornic systolic 10/18/22 06/07/24 Rx (Aldactone) chf ##0 bisacodyl 10 mg rectal suppository 10 mg RC DAILY PRN Constipation 07/31/23 06/07/24 History cranberry extract 500 mg tablet 2,000 mg PO DAILY 07/31/23 06/07/24 History ipratropium 0.5 mg-albuterol 3 mg 3 ml NEB Q6H PRN Wheezing 07/31/23 06/07/24 History (2.5 mg base)/3 mL nebulization soln metoprolol succinate 25 mg 25 mg PO DAILY 07/31/23 06/07/24 History tablet,extended release 24 hr sennosides 8.6 mg tablet (Senna 17.2 mg PO DAILY PRN Constipation 07/31/23 06/07/24 History Lax) furosemide 40 mg tablet 40 mg PO DAILY 08/01/23 06/07/24 History glipizide 5 mg tablet 5 mg PO QDBREAKFAST 08/01/23 06/07/24 History ondansetron 4 mg disintegrating 4 mg PO Q6H PRN Nausea / Vomiting 08/01/23 06/07/24 History tablet polyethylene glycol 3350 17 gram 17 g PO DAILY PRN Constipation 08/01/23 06/07/24 History oral powder packet lisinopril 2.5 mg tablet 2.5 mg PO DAILY 04/05/24 06/07/24 History loperamide 2 mg capsule 2 mg PO Q6H PRN Diarrhea 04/05/24 06/07/24 History mineral oil (Fleet Mineral Oil 118 ml HI DAILY PRN constipation 04/05/24 06/07/24 History enema) sertraline 25 mg tablet 75 mg PO DAILY 04/05/24 06/07/24 History zinc oxide 20 % topical ointment 1 applic topical PRN PRN skin 04/05/24 06/07/24 History (Endit (zinc oxide)) irritation empagliflozin 10 mg tablet 10 mg PO DAILY 06/07/24 06/07/24 History (Jardiance) enoxaparin 40 mg/0.4 mL 40 mg subcut DAILY 06/07/24 06/07/24 History subcutaneous syringe insulin lispro 100 unit/mL 2 - 10 unit subcut ACHS 06/07/24 06/07/24 History subcutaneous pen pantoprazole 40 mg tablet,delayed 40 mg PO DAILY 06/07/24 06/07/24 History release potassium chloride 20 mEq 20 meq PO BID 06/07/24 06/07/24 History tablet,extended release(part/cryst) Processed by: Pharmacy Medications reviewed in ED?: No Medication History completed: Yes Secondary Source(s): Facility MAR as ONLY source [facility] Statement: As the person ultimately responsible for medication therapy, providers are able to order a medication from an existing home medication list in [facility] via the "Reconcile Routine" prior to Confirmation of that medication by support services tech. Such practice is discouraged except when the physician, in their clinical judgment, deems that a medical need exists for a medication without regard to previous use.
[2024-06-07] MEDS: INSULIN LISPRO 300 UNIT/3 ML PEN SUBQ SCH (17:21)
[2024-06-07] MEDS: SODIUM CHLORIDE FLUSH 0.9% 10 ML SYRINGE IVP SCH (17:22)
[2024-06-07] MEDS: ATORVASTATIN 40 MG TABLET PO SCH (20:40)
[2024-06-07] MEDS: metroNIDAZOLE 500 MG/100 ML 500 MG/100 ML BAG IV SCH (20:40)
[2024-06-08] MEDS: PANTOPRAZOLE 40 MG TABLET PO SCH (06:28)
[2024-06-08 08:28] LABS: HCT - HEMATOCRIT 36.1 % (37.0-47.0); HGB - HEMOGLOBIN 10.7 g/dL (12.0-16.0); MEAN CORPUSCULAR HEMOGLOBIN 24.4 pg (27.0-31.0); MEAN CORPUSCULAR HGB CONC 29.6 g/dL (32.0-36.0); MEAN CORPUSCULAR VOLUME 82.2 fL (81.0-99.0); MEAN PLATELET VOLUME 11.4 fL (7.9-10.8); RED BLOOD COUNT 4.39 10^6/uL (4.20-5.40); RED CELL DISTRIBUTION WIDTH 17.6 % (12.0-15.0)
[2024-06-08 08:41] LABS: CALCIUM 8.4 mg/dL (8.5-10.3); CREATININE 1.2 mg/dL (0.6-1.3); POTASSIUM 3.8 mmol/L (3.5-4.5)
--- NOTE | 2024-06-08 08:52 | PROVIDER PROGRESS NOTE ---
Subjective Subjective Subjective: Patient is feeling better today. She has no nausea. She is tolerating the clear liquids well. She still has some abdominal pain in her left lower quadrant. We will trial GI soft diet today. She denies any shortness of breath, and her cough is also improving. Current Medications Current Medications Current Medications: Current Medications Generic Name Dose Route Start Last Admin Trade Name Freq PRN Reason Stop Dose Admin Acetaminophen 650 mg 06/07/24 15:42 Acetaminophen 325 Mg Tablet PO Q4HR PRN Pain 1 to 4, or Fever Hydrocodone Bitart/Acetaminophen 1 tab 06/07/24 15:45 Hydrocod/Acetam 5/325 Mg Tablet PO Q12H PRN Moderate Pain (Level 4-6) Aspirin 81 mg 06/08/24 09:00 Aspirin Ec 81 Mg Tablet PO DAILY BETTYE Atorvastatin Calcium 40 mg 06/07/24 21:00 06/07/24 20:40 Atorvastatin 40 Mg Tablet PO 40 mg QPM BETTYE Administration Carboxymethylcellulose 1 drops 06/07/24 15:48 Carboxymethylcellulose Ophth Drops EACHEYE Q6H PRN dry eye(s) Ceftriaxone Sodium 2 gm 06/08/24 09:00 Ceftriaxone 2 Gm Vial IVP DAILY [facility] Clopidogrel Bisulfate 75 mg 06/08/24 09:00 Clopidogrel 75 Mg Tablet PO DAILY BETTYE Metronidazole 500 mg in 100 mls @ 100 mls/hr 06/07/24 20:00 06/08/24 06:43 Flagyl 500 Mg/100 Ml IV Infused TID [facility] Infusion Insulin Human Lispro 1 - 5 unit 06/07/24 17:00 06/07/24 20:41 Insulin Lispro 300 Unit/3 Ml Pen SUBQ Not Given 0800,1200,1700,2100 [facility] Protocol Ondansetron HCl 4 mg 06/07/24 15:42 Ondansetron 4 Mg/2 Ml Vial IVP Q6HR PRN Nausea / Vomiting Ondansetron HCl 4 mg 06/07/24 15:42 Ondansetron Odt 4 Mg Tablet TL Q4HR PRN Nausea / Vomiting Pantoprazole Sodium 40 mg 06/08/24 07:00 06/08/24 06:28 Pantoprazole 40 Mg Tablet PO 40 mg QDAC BETTYE Administration Sodium Chloride 10 ml 06/07/24 15:42 Sodium Chloride Flush 0.9% 10 Ml Syringe IVP PRN PRN NEEDED PER PROVIDER ORDERS Sodium Chloride 10 ml 06/07/24 17:00 06/08/24 04:11 Sodium Chloride Flush 0.9% 10 Ml Syringe IVP 10 ml 0100,0900,1700 [facility] Administration Sterile Water 10 ml 06/08/24 09:00 Water For Injection,Sterile 10 Ml Vial DAILY [facility] Objective Vital Signs/Intake & Output Reviewed Vital Signs: Yes Vital Signs: Vital Signs x48h Temp Pulse Resp BP Pulse Ox O2 Flow Rate 06/08/24 08:28 98.1 F 64 18 128/45 L 97 2 06/08/24 01:54 97.5 F L 60 15 111/40 L 97 2 Intake & Output: Intake & Output 06/05/24 06/06/24 06/07/24 06/08/24 23:59 23:59 23:59 23:59 Intake Total 3200 / 3200 460 / 460 Output Total 1100 / 1100 Balance 3200 / 3200 -640 / -640 Weight (kg) 88.5 kg Objective General Appearance: positive No acute distress and Alert; negative Anxious Eyes Bilateral: positive Normal inspection, PERRL and EOMI ENT: positive ENT inspection nml, Pharynx nml and No signs of dehydration Neck: positive Nml inspection, Thyroid nml and No JVD Respiratory: positive Chest non-tender, No respiratory distress and Rales (mild, diffuse, improving) Cardiovascular: positive Regular rate & rhythm and No murmur; negative Systolic murmur, Diastolic murmur, Gallop/S3 or Gallop/S4 Abdomen: positive No distention and Tenderness (mild LLQ tenderness on deep palpation); negative Guarding, Rebound or Hepatomegaly Back: positive Nml inspection; negative CVA tenderness (R) or CVA tenderness (L) Skin: positive Color nml, No rash, Warm and Dry Extremities: positive Non-tender, Full ROM and No pedal edema Neurologic/Psychiatric: positive Oriented x3 and Mood/affect nml Lab Results 06/08/24 08:20 06/08/24 08:20 Other Labs: Lab Results x24hrs 06/08/24 06/08/24 06/07/24 Range/Units 08:20 07:40 20:32 WBC 15.0 H (4.8-10.8) x10^3/uL RBC 4.39 (4.20-5.40) 10^6/uL Hgb 10.7 L (12.0-16.0) g/dL Hct 36.1 L (37.0-47.0) % MCV 82.2 (81.0-99.0) fL MCH 24.4 L (27.0-31.0) pg MCHC 29.6 L (32.0-36.0) g/dL RDW 17.6 H (12.0-15.0) % Plt Count 256 (130-450) 10^3/uL MPV 11.4 H (7.9-10.8) fL Neut # (Auto) Lymph # (Auto) [place] # (Auto) Eos # (Auto) Baso # (Auto) Absolute Nucleated RBC Total Counted Band Neuts % (Manual) (0 - 10) % Reactive Lymphs % (Man) % Abnorm Lymph % (Manual) % Myelocytes % ( - 0) % Nucleated RBC % Neutrophils # (Manual) (1.5-6.6) 10^3/uL Lymphocytes # (Manual) (1.5-3.5) 10^3/uL Monocytes # (Manual) (0.0-1.0) 10^3/uL Eosinophils # (Manual) (0-0.7) 10^3/uL Basophils # (Manual) (0-0.1) 10^3/uL Differential Comment RBC Morph Micro Appear (NORMAL) PT (9.9-12.6) secs INR (0.8-1.2) APTT (24.9-33.3) secs Sodium 135 (135-145) mmol/L Potassium 3.8 (3.5-4.5) mmol/L Chloride 105 (101-111) mmol/L Carbon Dioxide 23 (21-32) mmol/L Anion Gap 7.0 (6-13) BUN 42 H (6-20) mg/dL Creatinine 1.2 (0.6-1.3) mg/dL Estimated GFR (MDRD) 44 L (>89) Glucose 107 H (74-104) mg/dL POC Whole Bld Glucose 112 133 (70-100) mg/dL Lactic Acid (0.5-2.2) mmol/L Calcium 8.4 L (8.5-10.3) mg/dL Phosphorus (2.5-5.0) mg/dL Magnesium (1.7-2.3) mg/dL Total Bilirubin (0.2-1.0) mg/dL AST (10-42) IU/L ALT (10-60) IU/L Alkaline Phosphatase (42-121) IU/L Total Protein (6.4-8.9) g/dL Albumin (3.2-5.5) g/dL Globulin (2.1-4.2) g/dL Albumin/Globulin Ratio (1.0-2.2) Lipase (11-82) U/L Urine Color Urine Clarity (CLEAR) Urine pH (5.0-7.5) PH Ur Specific Watkins (1.002-1.030) Urine Protein (NEGATIVE) mg/dL Urine Glucose (UA) (NEGATIVE) mg/dL Urine Ketones (NEGATIVE) mg/dL Urine Occult Blood (NEGATIVE) Urine Nitrite (NEGATIVE) Urine Bilirubin (NEGATIVE) Urine Urobilinogen (NORMAL) E.U./dL Ur Leukocyte Esterase (NEGATIVE) Ur Microscopic Review Urine Culture Comments 06/07/24 06/07/24 06/07/24 Range/Units 17:50 17:13 13:16 WBC (4.8-10.8) x10^3/uL RBC (4.20-5.40) 10^6/uL Hgb (12.0-16.0) g/dL Hct (37.0-47.0) % MCV (81.0-99.0) fL MCH (27.0-31.0) pg MCHC (32.0-36.0) g/dL RDW (12.0-15.0) % Plt Count (130-450) 10^3/uL MPV (7.9-10.8) fL Neut # (Auto) Lymph # (Auto) [place] # (Auto) Eos # (Auto) Baso # (Auto) Absolute Nucleated RBC Total Counted Band Neuts % (Manual) (0 - 10) % Reactive Lymphs % (Man) % Abnorm Lymph % (Manual) % Myelocytes % ( - 0) % Nucleated RBC % Neutrophils # (Manual) (1.5-6.6) 10^3/uL Lymphocytes # (Manual) (1.5-3.5) 10^3/uL Monocytes # (Manual) (0.0-1.0) 10^3/uL Eosinophils # (Manual) (0-0.7) 10^3/uL Basophils # (Manual) (0-0.1) 10^3/uL Differential Comment RBC Morph Micro Appear (NORMAL) PT (9.9-12.6) secs INR (0.8-1.2) APTT (24.9-33.3) secs Sodium (135-145) mmol/L Potassium (3.5-4.5) mmol/L Chloride (101-111) mmol/L Carbon Dioxide (21-32) mmol/L Anion Gap (6-13) BUN (6-20) mg/dL Creatinine (0.6-1.3) mg/dL Estimated GFR (MDRD) (>89) Glucose (74-104) mg/dL POC Whole Bld Glucose 76 69 (70-100) mg/dL Lactic Acid (0.5-2.2) mmol/L Calcium (8.5-10.3) mg/dL Phosphorus (2.5-5.0) mg/dL Magnesium (1.7-2.3) mg/dL Total Bilirubin (0.2-1.0) mg/dL AST (10-42) IU/L ALT (10-60) IU/L Alkaline Phosphatase (42-121) IU/L Total Protein (6.4-8.9) g/dL Albumin (3.2-5.5) g/dL Globulin (2.1-4.2) g/dL Albumin/Globulin Ratio (1.0-2.2) Lipase (11-82) U/L Urine Color YELLOW Urine Clarity CLEAR (CLEAR) Urine pH 5.5 (5.0-7.5) PH Ur Specific Watkins 1.020 (1.002-1.030) Urine Protein NEGATIVE (NEGATIVE) mg/dL Urine Glucose (UA) 100 H (NEGATIVE) mg/dL Urine Ketones NEGATIVE (NEGATIVE) mg/dL Urine Occult Blood NEGATIVE (NEGATIVE) Urine Nitrite NEGATIVE (NEGATIVE) Urine Bilirubin NEGATIVE (NEGATIVE) Urine Urobilinogen 0.2 (NORMAL) (NORMAL) E.U./dL Ur Leukocyte Esterase NEGATIVE (NEGATIVE) Ur Microscopic Review NOT INDICATED Urine Culture Comments NOT INDICATED 06/07/24 Range/Units 10:46 WBC 21.7 H (4.8-10.8) x10^3/uL RBC 4.70 (4.20-5.40) 10^6/uL Hgb 11.6 L (12.0-16.0) g/dL Hct 37.7 (37.0-47.0) % MCV 80.2 L (81.0-99.0) fL MCH 24.7 L (27.0-31.0) pg MCHC 30.8 L (32.0-36.0) g/dL RDW 17.4 H (12.0-15.0) % Plt Count 340 (130-450) 10^3/uL MPV 11.6 H (7.9-10.8) fL Neut # (Auto) Not Reportable Lymph # (Auto) Not Reportable [place] # (Auto) Not Reportable Eos # (Auto) Not Reportable Baso # (Auto) Not Reportable Absolute Nucleated RBC Not Reportable Total Counted 100 Band Neuts % (Manual) 0 (0 - 10) % Reactive Lymphs % (Man) 2 % Abnorm Lymph % (Manual) 0 % Myelocytes % 1 H ( - 0) % Nucleated RBC % Not Reportable Neutrophils # (Manual) 18.7 H (1.5-6.6) 10^3/uL Lymphocytes # (Manual) 1.5 (1.5-3.5) 10^3/uL Monocytes # (Manual) 1.1 H (0.0-1.0) 10^3/uL Eosinophils # (Manual) 0.2 (0-0.7) 10^3/uL Basophils # (Manual) 0.0 (0-0.1) 10^3/uL Differential Comment MANUAL DIFFERENTIAL RBC Morph Micro Appear 3+ ANISOCYTOSIS (NORMAL) PT 13.8 H (9.9-12.6) secs INR 1.3 H (0.8-1.2) APTT 31.7 (24.9-33.3) secs Sodium 131 L (135-145) mmol/L Potassium 4.6 H (3.5-4.5) mmol/L Chloride 97 L (101-111) mmol/L Carbon Dioxide 24 (21-32) mmol/L Anion Gap 10.0 (6-13) BUN 71 H (6-20) mg/dL Creatinine 2.4 H (0.6-1.3) mg/dL Estimated GFR (MDRD) 20 L (>89) Glucose 109 H (74-104) mg/dL POC Whole Bld Glucose (70-100) mg/dL Lactic Acid 1.2 (0.5-2.2) mmol/L Calcium 8.9 (8.5-10.3) mg/dL Phosphorus 5.3 H (2.5-5.0) mg/dL Magnesium 1.8 (1.7-2.3) mg/dL Total Bilirubin 0.6 (0.2-1.0) mg/dL AST 11 (10-42) IU/L ALT 12 (10-60) IU/L Alkaline Phosphatase 63 (42-121) IU/L Total Protein 6.3 L (6.4-8.9) g/dL Albumin 3.2 (3.2-5.5) g/dL Globulin 3.1 (2.1-4.2) g/dL Albumin/Globulin Ratio 1.0 (1.0-2.2) Lipase 30 (11-82) U/L Urine Color Urine Clarity (CLEAR) Urine pH (5.0-7.5) PH Ur Specific Watkins (1.002-1.030) Urine Protein (NEGATIVE) mg/dL Urine Glucose (UA) (NEGATIVE) mg/dL Urine Ketones (NEGATIVE) mg/dL Urine Occult Blood (NEGATIVE) Urine Nitrite (NEGATIVE) Urine Bilirubin (NEGATIVE) Urine Urobilinogen (NORMAL) E.U./dL Ur Leukocyte Esterase (NEGATIVE) Ur Microscopic Review Urine Culture Comments Assessment/Plan Problem List (1) Acute diverticulitis: Impression: Patient with significant leukocytosis. CT shows sigmoid diverticulitis. Continue Rocephin and Flagyl at this time. Was unable to tolerate p.o. intake yesterday. Started her on clear liquids, doing well. Will continue advance to GI soft as tolerated. Will do 1 more day of IV antibiotics, and then will discharge on orals. (2) YARED (acute kidney injury): Impression: Resolved. With IV fluid rehydration, patient's YARED is back to baseline. (3) Acute dehydration: Impression: Resolved. Received IV fluid rehydration, now eating and drinking well. (4) Leukocytosis: Impression: Improving, continue to trend. Qualifiers: Leukocytosis type: unspecified Qualified Code(s): D72.829 - Elevated white blood cell count, unspecified (5) Congestive heart failure: Impression: Not in acute exacerbation. Was dehydrated on admission. Hold Lasix and spironolactone at this time. Will restart tomorrow. Qualifiers: Heart failure chronicity: unspecified Heart failure type: unspecified Qualified Code(s): I50.9 - Heart failure, unspecified (6) Type 2 diabetes mellitus: Impression: Continue low-dose sliding scale. 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
[2024-06-08] MEDS: CLOPIDOGREL 75 MG TABLET PO SCH (09:04)
[2024-06-08] MEDS: ASPIRIN EC 81 MG TABLET PO SCH (09:04)
[2024-06-08] MEDS: cefTRIAXone 2 GM VIAL IVP SCH (09:05)
[2024-06-08] MEDS: MULTIVITAMIN W/MINERALS TABLET PO SCH (18:08)
[2024-06-08] MEDS: SODIUM CHLORIDE FLUSH 0.9% 10 ML SYRINGE IVP PRN (21:05)
[2024-06-09] MEDS: LACTOBACILLUS RHAMNOSUS GG CAPSULE PO SCH (11:08)
--- NOTE | 2024-06-09 11:23 | PROVIDER PROGRESS NOTE ---
Subjective Subjective Subjective: Patient is feeling better today. She has no nausea. She is tolerating the GI soft diet well. She denies any shortness of breath, and her cough is also improving. She is medically stable for discharge today. Awaiting transfer back to [facility]. Current Medications Current Medications Current Medications: Current Medications Generic Name Dose Route Start Last Admin Trade Name Freq PRN Reason Stop Dose Admin Acetaminophen 650 mg 06/07/24 15:42 Acetaminophen 325 Mg Tablet PO Q4HR PRN Pain 1 to 4, or Fever Hydrocodone Bitart/Acetaminophen 1 tab 06/07/24 15:45 Hydrocod/Acetam 5/325 Mg Tablet PO Q12H PRN Moderate Pain (Level 4-6) Amoxicillin/Clavulanate Potassium 1 tab 06/09/24 14:00 Amox/Clav 875 Mg/125 Mg Tablet PO Q8HR BETTYE Aspirin 81 mg 06/08/24 09:00 06/09/24 08:31 Aspirin Ec 81 Mg Tablet PO 81 mg DAILY BETTYE Administration Atorvastatin Calcium 40 mg 06/07/24 21:00 06/08/24 21:04 Atorvastatin 40 Mg Tablet PO 40 mg QPM BETTYE Administration Carboxymethylcellulose 1 drops 06/07/24 15:48 Carboxymethylcellulose Ophth Drops EACHEYE Q6H PRN dry eye(s) Clopidogrel Bisulfate 75 mg 06/08/24 09:00 06/09/24 08:31 Clopidogrel 75 Mg Tablet PO 75 mg DAILY BETTYE Administration Insulin Human Lispro 1 - 5 unit 06/07/24 17:00 06/09/24 08:30 Insulin Lispro 300 Unit/3 Ml Pen SUBQ Not Given 0800,1200,1700,2100 [facility] Protocol Lactobacillus Rhamnosus 1 cap 06/09/24 11:00 06/09/24 11:08 Lactobacillus Rhamnosus Gg Capsule PO 1 cap DAILY BETTYE Administration Multivitamins/Minerals 1 tab 06/08/24 17:00 06/09/24 08:31 Multivitamin W/Minerals Tablet PO 1 tab DAILYWM BETTYE Administration Ondansetron HCl 4 mg 06/07/24 15:42 Ondansetron 4 Mg/2 Ml Vial IVP Q6HR PRN Nausea / Vomiting Ondansetron HCl 4 mg 06/07/24 15:42 Ondansetron Odt 4 Mg Tablet TL Q4HR PRN Nausea / Vomiting Pantoprazole Sodium 40 mg 06/08/24 07:00 06/09/24 06:29 Pantoprazole 40 Mg Tablet PO 40 mg QDAC BETTYE Administration Sodium Chloride 10 ml 06/07/24 15:42 06/08/24 21:05 Sodium Chloride Flush 0.9% 10 Ml Syringe IVP 10 ml PRN PRN Administration NEEDED PER PROVIDER ORDERS Sodium Chloride 10 ml 06/07/24 17:00 06/09/24 08:31 Sodium Chloride Flush 0.9% 10 Ml Syringe IVP 10 ml 0100,0900,1700 BETTYE Administration Sterile Water 10 ml 06/08/24 09:00 06/09/24 08:43 Water For Injection,Sterile 10 Ml Vial MC Not Given DAILY BETTYE Objective Vital Signs/Intake & Output Reviewed Vital Signs: Yes Vital Signs: Vital Signs x48h Temp Pulse Resp BP Pulse Ox O2 Flow Rate 06/08/24 08:28 98.1 F 64 18 128/45 L 97 2 06/08/24 01:54 97.5 F L 60 15 111/40 L 97 2 Intake & Output: Intake & Output 06/06/24 06/07/24 06/08/24 06/09/24 23:59 23:59 23:59 23:59 Intake Total 3200 / 3200 1960 / 1960 340 / 340 Output Total 1100 / 1100 300 / 300 Balance 3200 / 3200 860 / 860 40 / 40 Weight (kg) 88.5 kg Objective General Appearance: positive No acute distress and Alert; negative Anxious Eyes Bilateral: positive Normal inspection, PERRL and EOMI ENT: positive ENT inspection nml, Pharynx nml and No signs of dehydration Neck: positive Nml inspection, Thyroid nml and No JVD Respiratory: positive Chest non-tender, No respiratory distress and Rales (mild, diffuse, improving) Cardiovascular: positive Regular rate & rhythm and No murmur; negative Systolic murmur, Diastolic murmur, Gallop/S3 or Gallop/S4 Abdomen: positive No distention and Tenderness (mild LLQ tenderness on deep palpation); negative Guarding, Rebound or Hepatomegaly Back: positive Nml inspection; negative CVA tenderness (R) or CVA tenderness (L) Skin: positive Color nml, No rash, Warm and Dry Extremities: positive Non-tender, Full ROM and No pedal edema Neurologic/Psychiatric: positive Oriented x3 and Mood/affect nml Lab Results 06/09/24 14:23 06/09/24 14:23 Other Labs: Lab Results x24hrs 06/09/24 06/08/24 06/08/24 Range/Units 07:53 20:44 19:50 POC Whole Bld Glucose 132 110 (70-100) mg/dL Stl C. diff Tox B Gene NEGATIVE (NEGATIVE) 06/08/24 06/08/24 Range/Units 16:54 11:53 POC Whole Bld Glucose 114 100 (70-100) mg/dL Stl C. diff Tox B Gene (NEGATIVE) Assessment/Plan Problem List (1) Acute diverticulitis: Impression: Patient with significant leukocytosis on admission. CT shows sigmoid diverticulitis. Patient is much improved today. Abdominal pain has resolved. No nausea, no vomiting. Tolerating GI soft diet well. Rocephin and Flagyl switched to Augmentin. Patient is medically clear for discharge. (2) YARED (acute kidney injury): Impression: Resolved. With IV fluid rehydration, patient's YARED is back to baseline. (3) Acute dehydration: Impression: Resolved. Received IV fluid rehydration, now eating and drinking well. (4) Leukocytosis: Impression: Improving, continue to trend. Qualifiers: Leukocytosis type: unspecified Qualified Code(s): D72.829 - Elevated white blood cell count, unspecified (5) Congestive heart failure: Impression: Not in acute exacerbation. Was dehydrated on admission. Hold Lasix and spironolactone at this time. Will restart tomorrow. Qualifiers: Heart failure chronicity: unspecified Heart failure type: unspecified Qualified Code(s): I50.9 - Heart failure, unspecified (6) Type 2 diabetes mellitus: Impression: Continue low-dose sliding scale. 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
[2024-06-09] MEDS: AMOX/CLAV 875 MG/125 MG TABLET PO SCH (14:08)
[2024-06-09 14:31] LABS: HCT - HEMATOCRIT 33.6 % (37.0-47.0); HGB - HEMOGLOBIN 10.2 g/dL (12.0-16.0); MEAN CORPUSCULAR HEMOGLOBIN 24.8 pg (27.0-31.0); MEAN CORPUSCULAR HGB CONC 30.4 g/dL (32.0-36.0); MEAN CORPUSCULAR VOLUME 81.6 fL (81.0-99.0); MEAN PLATELET VOLUME 11.9 fL (7.9-10.8); RED BLOOD COUNT 4.12 10^6/uL (4.20-5.40); RED CELL DISTRIBUTION WIDTH 17.9 % (12.0-15.0)
[2024-06-09 14:50] LABS: CALCIUM 7.9 mg/dL (8.5-10.3); CREATININE 0.8 mg/dL (0.6-1.3); MAGNESIUM 1.4 mg/dL (1.7-2.3); POTASSIUM 3.7 mmol/L (3.5-4.5)
[2024-06-09] MEDS: MAGNESIUM OXIDE 400 MG TABLET PO SCH (15:49)
[2024-06-09] MEDS: guaiFENesin 600 MG TABLET PO SCH (20:59)
[2024-06-10 04:37] LABS: HCT - HEMATOCRIT 30.6 % (37.0-47.0); HGB - HEMOGLOBIN 9.2 g/dL (12.0-16.0); MEAN CORPUSCULAR HEMOGLOBIN 25.3 pg (27.0-31.0); MEAN CORPUSCULAR HGB CONC 30.1 g/dL (32.0-36.0); MEAN CORPUSCULAR VOLUME 84.1 fL (81.0-99.0); MEAN PLATELET VOLUME 11.6 fL (7.9-10.8); RED BLOOD COUNT 3.64 10^6/uL (4.20-5.40); RED CELL DISTRIBUTION WIDTH 17.9 % (12.0-15.0); WHITE BLOOD COUNT 12.8 x10^3/uL (4.8-10.8)
[2024-06-10 04:53] LABS: CALCIUM 7.6 mg/dL (8.5-10.3); CREATININE 0.7 mg/dL (0.6-1.3); MAGNESIUM 1.4 mg/dL (1.7-2.3); POTASSIUM 3.4 mmol/L (3.5-4.5)
[2024-06-10] MEDS ORDERED: MAGNESIUM SULFATE 1 GM/2 ML VIAL IVP STA (07:19)
[2024-06-10] MEDS: FUROSEMIDE 40 MG TABLET PO SCH (08:24)
[2024-06-10] MEDS: MAGNESIUM SULFATE 2 GRAM 2 GM/50 ML BAG IV ONE (08:40)
--- NOTE | 2024-06-10 14:26 | PROVIDER PROGRESS NOTE ---
Subjective Subjective Subjective: Patient is feeling better today. She has no nausea. She is tolerating the GI soft diet well. She denies any shortness of breath, and her cough is also improving. She is medically stable for discharge today. Awaiting transfer back to [facility]. Current Medications Current Medications Current Medications: Current Medications Generic Name Dose Route Start Last Admin Trade Name Freq PRN Reason Stop Dose Admin Acetaminophen 650 mg 06/07/24 15:42 Acetaminophen 325 Mg Tablet PO Q4HR PRN Pain 1 to 4, or Fever Hydrocodone Bitart/Acetaminophen 1 tab 06/07/24 15:45 Hydrocod/Acetam 5/325 Mg Tablet PO Q12H PRN Moderate Pain (Level 4-6) Amoxicillin/Clavulanate Potassium 1 tab 06/09/24 14:00 06/10/24 13:35 Amox/Clav 875 Mg/125 Mg Tablet PO 1 tab Q8HR BETTYE Administration Aspirin 81 mg 06/08/24 09:00 06/10/24 08:24 Aspirin Ec 81 Mg Tablet PO 81 mg DAILY BETTYE Administration Atorvastatin Calcium 40 mg 06/07/24 21:00 06/09/24 20:58 Atorvastatin 40 Mg Tablet PO 40 mg QPM BETTYE Administration Carboxymethylcellulose 1 drops 06/07/24 15:48 Carboxymethylcellulose Ophth Drops EACHEYE Q6H PRN dry eye(s) Clopidogrel Bisulfate 75 mg 06/08/24 09:00 06/10/24 08:24 Clopidogrel 75 Mg Tablet PO 75 mg DAILY BETTYE Administration Furosemide 40 mg 06/10/24 09:00 06/10/24 08:24 Furosemide 40 Mg Tablet PO 40 mg DAILY BETTYE Administration Guaifenesin 600 mg 06/09/24 21:00 06/10/24 08:23 Guaifenesin 600 Mg Tablet PO 600 mg BID BETTYE Administration Insulin Human Lispro 1 - 5 unit 06/07/24 17:00 06/10/24 11:27 Insulin Lispro 300 Unit/3 Ml Pen SUBQ Not Given 0800,1200,1700,2100 [facility] Protocol Lactobacillus Rhamnosus 1 cap 06/09/24 11:00 06/10/24 08:23 Lactobacillus Rhamnosus Gg Capsule PO 1 cap DAILY BETTYE Administration Loperamide HCl 2 mg 06/09/24 14:15 Loperamide 2 Mg Capsule PO QID PRN Diarrhea Magnesium Oxide 400 mg 06/09/24 15:00 06/10/24 08:23 Magnesium Oxide 400 Mg Tablet PO 400 mg DAILYWM BETTYE Administration Multivitamins/Minerals 1 tab 06/08/24 17:00 06/10/24 08:24 Multivitamin W/Minerals Tablet PO 1 tab DAILYWM BETTYE Administration Ondansetron HCl 4 mg 06/07/24 15:42 Ondansetron 4 Mg/2 Ml Vial IVP Q6HR PRN Nausea / Vomiting Ondansetron HCl 4 mg 06/07/24 15:42 Ondansetron Odt 4 Mg Tablet TL Q4HR PRN Nausea / Vomiting Pantoprazole Sodium 40 mg 06/08/24 07:00 06/10/24 06:00 Pantoprazole 40 Mg Tablet PO 40 mg QDAC BETTYE Administration Sodium Chloride 10 ml 06/07/24 15:42 06/08/24 21:05 Sodium Chloride Flush 0.9% 10 Ml Syringe IVP 10 ml PRN PRN Administration NEEDED PER PROVIDER ORDERS Sodium Chloride 10 ml 06/07/24 17:00 06/10/24 08:25 Sodium Chloride Flush 0.9% 10 Ml Syringe IVP 10 ml 0100,0900,1700 BETTYE Administration Objective Vital Signs/Intake & Output Reviewed Vital Signs: Yes Vital Signs: Vital Signs x48h Temp Pulse Resp BP Pulse Ox O2 Flow Rate 06/10/24 13:41 97.5 F L 64 20 134/48 H 97 2 06/10/24 08:10 2 06/10/24 08:10 97.3 F L 62 20 130/52 L 98 2 Intake & Output: Intake & Output 06/07/24 06/08/24 06/09/24 06/10/24 23:59 23:59 23:59 23:59 Intake Total 3200 / 3200 1960 / 1960 2397 / 2397 1007 / 1007 Output Total 1100 / 1100 1100 / 1100 300 / 300 Balance 3200 / 3200 860 / 860 1297 / 1297 707 / 707 Weight (kg) 88.5 kg Objective General Appearance: positive No acute distress and Alert; negative Anxious Eyes Bilateral: positive Normal inspection, PERRL and EOMI ENT: positive ENT inspection nml, Pharynx nml and No signs of dehydration Neck: positive Nml inspection, Thyroid nml and No JVD Respiratory: positive Chest non-tender, No respiratory distress and Rales (mild, diffuse, improving) Cardiovascular: positive Regular rate & rhythm and No murmur; negative Systolic murmur, Diastolic murmur, Gallop/S3 or Gallop/S4 Abdomen: positive No distention and Tenderness (mild LLQ tenderness on deep palpation); negative Guarding, Rebound or Hepatomegaly Back: positive Nml inspection; negative CVA tenderness (R) or CVA tenderness (L) Skin: positive Color nml, No rash, Warm and Dry Extremities: positive Non-tender, Full ROM and No pedal edema Neurologic/Psychiatric: positive Oriented x3 and Mood/affect nml Lab Results 06/10/24 04:08 06/10/24 04:08 Other Labs: Lab Results x24hrs 06/10/24 06/10/24 06/10/24 Range/Units 11:14 08:15 04:08 WBC 12.8 H (4.8-10.8) x10^3/uL RBC 3.64 L (4.20-5.40) 10^6/uL Hgb 9.2 L (12.0-16.0) g/dL Hct 30.6 L (37.0-47.0) % MCV 84.1 (81.0-99.0) fL MCH 25.3 L (27.0-31.0) pg MCHC 30.1 L (32.0-36.0) g/dL RDW 17.9 H (12.0-15.0) % Plt Count 215 (130-450) 10^3/uL MPV 11.6 H (7.9-10.8) fL Sodium 139 (135-145) mmol/L Potassium 3.4 L (3.5-4.5) mmol/L Chloride 110 (101-111) mmol/L Carbon Dioxide 23 (21-32) mmol/L Anion Gap 6.0 (6-13) BUN 11 (6-20) mg/dL Creatinine 0.7 (0.6-1.3) mg/dL Estimated GFR (MDRD) 82 L (>89) Glucose 97 (74-104) mg/dL POC Whole Bld Glucose 100 98 (70-100) mg/dL Calcium 7.6 L (8.5-10.3) mg/dL Magnesium 1.4 L (1.7-2.3) mg/dL 06/09/24 06/09/24 06/09/24 Range/Units 19:57 16:36 14:23 WBC 13.0 H (4.8-10.8) x10^3/uL RBC 4.12 L (4.20-5.40) 10^6/uL Hgb 10.2 L (12.0-16.0) g/dL Hct 33.6 L (37.0-47.0) % MCV 81.6 (81.0-99.0) fL MCH 24.8 L (27.0-31.0) pg MCHC 30.4 L (32.0-36.0) g/dL RDW 17.9 H (12.0-15.0) % Plt Count 235 (130-450) 10^3/uL MPV 11.9 H (7.9-10.8) fL Sodium 139 (135-145) mmol/L Potassium 3.7 (3.5-4.5) mmol/L Chloride 110 (101-111) mmol/L Carbon Dioxide 22 (21-32) mmol/L Anion Gap 7.0 (6-13) BUN 17 (6-20) mg/dL Creatinine 0.8 (0.6-1.3) mg/dL Estimated GFR (MDRD) 70 L (>89) Glucose 117 H (74-104) mg/dL POC Whole Bld Glucose 124 91 (70-100) mg/dL Calcium 7.9 L (8.5-10.3) mg/dL Magnesium 1.4 L (1.7-2.3) mg/dL Assessment/Plan Problem List (1) Acute diverticulitis: Impression: Patient with significant leukocytosis on admission. CT shows sigmoid diverticulitis. Patient is much improved today. Abdominal pain has resolved. No nausea, no vomiting. Tolerating GI soft diet well. Rocephin and Flagyl switched to Augmentin. Patient is medically clear for discharge. (2) YARED (acute kidney injury): Impression: Resolved. With IV fluid rehydration, patient's YARED is back to baseline. (3) Acute dehydration: Impression: Resolved. Received IV fluid rehydration, now eating and drinking well. (4) Leukocytosis: Impression: Improving, continue to trend. Qualifiers: Leukocytosis type: unspecified Qualified Code(s): D72.829 - Elevated white blood cell count, unspecified (5) Congestive heart failure: Impression: Not in acute exacerbation. Was dehydrated on admission. Continued Lasix. Will start spirnolactone tomorrow. Qualifiers: Heart failure chronicity: unspecified Heart failure type: unspecified Qualified Code(s): I50.9 - Heart failure, unspecified (6) Type 2 diabetes mellitus: Impression: Continue low-dose sliding scale. Qualifiers: Diabetes mellitus mcfp insulin use: without mcfp use Diabetes mellitus complication status: with other specified complication Qualified Code(s): E11.69 - Type 2 diabetes mellitus with other specified complication
[2024-06-10] MEDS: LOPERAMIDE 2 MG CAPSULE PO PRN (16:46)
[2024-06-10] MEDS: POTASSIUM CHLORIDE 20 MEQ/15 ML UDC PO SCH ×2 (20:48→20:57)
[2024-06-11 04:55] LABS: HCT - HEMATOCRIT 32.6 % (37.0-47.0); HGB - HEMOGLOBIN 9.7 g/dL (12.0-16.0); MEAN CORPUSCULAR HEMOGLOBIN 24.9 pg (27.0-31.0); MEAN CORPUSCULAR HGB CONC 29.8 g/dL (32.0-36.0); MEAN CORPUSCULAR VOLUME 83.6 fL (81.0-99.0); MEAN PLATELET VOLUME 11.6 fL (7.9-10.8); RED BLOOD COUNT 3.9 10^6/uL (4.20-5.40); WHITE BLOOD COUNT 12.7 x10^3/uL (4.8-10.8)
[2024-06-11 05:11] LABS: CALCIUM 7.5 mg/dL (8.5-10.3); CREATININE 0.6 mg/dL (0.6-1.3); POTASSIUM 3.3 mmol/L (3.5-4.5)
[2024-06-11] MEDS: METOPROLOL SUCCINATE 25 MG TABLET PO SCH (09:17)
--- NOTE | 2024-06-11 11:53 | PROVIDER PROGRESS NOTE ---
Subjective Subjective Subjective: Patient is feeling better today. She has no nausea. She is tolerating the GI soft diet well. Will advance to regular diet today with caution. She denies any shortness of breath, and her cough is also improving. She is medically stable for discharge today. Awaiting transfer back to [facility]. Current Medications Current Medications Current Medications: Current Medications Generic Name Dose Route Start Last Admin Trade Name Freq PRN Reason Stop Dose Admin Acetaminophen 650 mg 06/07/24 15:42 Acetaminophen 325 Mg Tablet PO Q4HR PRN Pain 1 to 4, or Fever Hydrocodone Bitart/Acetaminophen 1 tab 06/07/24 15:45 Hydrocod/Acetam 5/325 Mg Tablet PO Q12H PRN Moderate Pain (Level 4-6) Amoxicillin/Clavulanate Potassium 1 tab 06/09/24 14:00 06/11/24 06:05 Amox/Clav 875 Mg/125 Mg Tablet PO 1 tab Q8HR BETTYE Administration Aspirin 81 mg 06/08/24 09:00 06/11/24 09:18 Aspirin Ec 81 Mg Tablet PO 81 mg DAILY BETTYE Administration Atorvastatin Calcium 40 mg 06/07/24 21:00 06/10/24 20:49 Atorvastatin 40 Mg Tablet PO 40 mg QPM BETTYE Administration Carboxymethylcellulose 1 drops 06/07/24 15:48 Carboxymethylcellulose Ophth Drops EACHEYE Q6H PRN dry eye(s) Clopidogrel Bisulfate 75 mg 06/08/24 09:00 06/11/24 09:16 Clopidogrel 75 Mg Tablet PO 75 mg DAILY BETTYE Administration Furosemide 40 mg 06/10/24 09:00 06/11/24 09:18 Furosemide 40 Mg Tablet PO 40 mg DAILY BETTYE Administration Guaifenesin 600 mg 06/09/24 21:00 06/11/24 09:16 Guaifenesin 600 Mg Tablet PO 600 mg BID BETTYE Administration Insulin Human Lispro 1 - 5 unit 06/07/24 17:00 06/11/24 10:16 Insulin Lispro 300 Unit/3 Ml Pen SUBQ Not Given 0800,1200,1700,2100 [facility] Protocol Lactobacillus Rhamnosus 1 cap 06/09/24 11:00 06/11/24 09:18 Lactobacillus Rhamnosus Gg Capsule PO 1 cap DAILY BETTYE Administration Loperamide HCl 2 mg 06/09/24 14:15 06/10/24 16:46 Loperamide 2 Mg Capsule PO 2 mg QID PRN Administration Diarrhea Magnesium Oxide 400 mg 06/09/24 15:00 06/11/24 09:17 Magnesium Oxide 400 Mg Tablet PO 400 mg DAILYWM BETTYE Administration Metoprolol Succinate 25 mg 06/11/24 09:00 06/11/24 09:17 Metoprolol Succinate 25 Mg Tablet PO 25 mg DAILY BETTYE Administration Multivitamins/Minerals 1 tab 06/08/24 17:00 06/11/24 09:17 Multivitamin W/Minerals Tablet PO 1 tab DAILYWM BETTYE Administration Ondansetron HCl 4 mg 06/07/24 15:42 Ondansetron 4 Mg/2 Ml Vial IVP Q6HR PRN Nausea / Vomiting Ondansetron HCl 4 mg 06/07/24 15:42 Ondansetron Odt 4 Mg Tablet TL Q4HR PRN Nausea / Vomiting Pantoprazole Sodium 40 mg 06/08/24 07:00 06/11/24 06:04 Pantoprazole 40 Mg Tablet PO 40 mg QDAC BETTYE Administration Potassium Chloride 20 meq 06/10/24 20:00 06/11/24 09:21 Potassium Chloride 20 Meq/15 Ml Udc PO Not Given DAILYWM BETTYE Sodium Chloride 10 ml 06/07/24 15:42 06/08/24 21:05 Sodium Chloride Flush 0.9% 10 Ml Syringe IVP 10 ml PRN PRN Administration NEEDED PER PROVIDER ORDERS Sodium Chloride 10 ml 06/07/24 17:00 06/11/24 09:18 Sodium Chloride Flush 0.9% 10 Ml Syringe IVP 10 ml 0100,0900,1700 BETTYE Administration Objective Vital Signs/Intake & Output Reviewed Vital Signs: Yes Vital Signs: Vital Signs x48h Temp Pulse Resp BP Pulse Ox O2 Flow Rate 06/11/24 08:29 98.1 F 78 16 119/52 L 97 2 Intake & Output: Intake & Output 06/08/24 06/09/24 06/10/24 06/11/24 23:59 23:59 23:59 23:59 Intake Total 1960 / 1960 2397 / 2397 1507 / 1507 120 / 120 Output Total 1100 / 1100 1100 / 1100 2300 / 2300 Balance 860 / 860 1297 / 1297 -793 / -793 120 / 120 Objective General Appearance: positive No acute distress and Alert; negative Anxious Eyes Bilateral: positive Normal inspection, PERRL and EOMI ENT: positive ENT inspection nml, Pharynx nml and No signs of dehydration Neck: positive Nml inspection, Thyroid nml and No JVD Respiratory: positive Chest non-tender, No respiratory distress and Rales (mild, diffuse, improving) Cardiovascular: positive Regular rate & rhythm and No murmur; negative Systolic murmur, Diastolic murmur, Gallop/S3 or Gallop/S4 Abdomen: positive No distention and Tenderness (mild LLQ tenderness on deep palpation); negative Guarding, Rebound or Hepatomegaly Back: positive Nml inspection; negative CVA tenderness (R) or CVA tenderness (L) Skin: positive Color nml, No rash, Warm and Dry Extremities: positive Non-tender, Full ROM and No pedal edema Neurologic/Psychiatric: positive Oriented x3 and Mood/affect nml Lab Results 06/11/24 04:17 06/11/24 04:17 Other Labs: Lab Results x24hrs 06/11/24 06/11/24 06/11/24 Range/Units 11:27 07:46 04:17 WBC 12.7 H (4.8-10.8) x10^3/uL RBC 3.90 L (4.20-5.40) 10^6/uL Hgb 9.7 L (12.0-16.0) g/dL Hct 32.6 L (37.0-47.0) % MCV 83.6 (81.0-99.0) fL MCH 24.9 L (27.0-31.0) pg MCHC 29.8 L (32.0-36.0) g/dL RDW 18.0 H (12.0-15.0) % Plt Count 240 (130-450) 10^3/uL MPV 11.6 H (7.9-10.8) fL Sodium 139 (135-145) mmol/L Potassium 3.3 L (3.5-4.5) mmol/L Chloride 108 (101-111) mmol/L Carbon Dioxide 26 (21-32) mmol/L Anion Gap 5.0 L (6-13) BUN 6 (6-20) mg/dL Creatinine 0.6 (0.6-1.3) mg/dL Estimated GFR (MDRD) 98 (>89) Glucose 134 H (74-104) mg/dL POC Whole Bld Glucose 128 136 (70-100) mg/dL Calcium 7.5 L (8.5-10.3) mg/dL 06/10/24 06/10/24 Range/Units 20:33 16:44 WBC (4.8-10.8) x10^3/uL RBC (4.20-5.40) 10^6/uL Hgb (12.0-16.0) g/dL Hct (37.0-47.0) % MCV (81.0-99.0) fL MCH (27.0-31.0) pg MCHC (32.0-36.0) g/dL RDW (12.0-15.0) % Plt Count (130-450) 10^3/uL MPV (7.9-10.8) fL Sodium (135-145) mmol/L Potassium (3.5-4.5) mmol/L Chloride (101-111) mmol/L Carbon Dioxide (21-32) mmol/L Anion Gap (6-13) BUN (6-20) mg/dL Creatinine (0.6-1.3) mg/dL Estimated GFR (MDRD) (>89) Glucose (74-104) mg/dL POC Whole Bld Glucose 119 130 (70-100) mg/dL Calcium (8.5-10.3) mg/dL Assessment/Plan Problem List (1) Acute diverticulitis: Impression: Patient with significant leukocytosis on admission. CT shows sigmoid diverticulitis. Patient is much improved today. Abdominal pain has resolved. No nausea, no vomiting. Tolerating GI soft diet well. Rocephin and Flagyl switched to Augmentin. Will complete 10 day course of antibiotics (day 5/10 today). Patient is medically clear for discharge. (2) YARED (acute kidney injury): Impression: Resolved. With IV fluid rehydration, patient's YARED is back to baseline. Restarted lisinopril, Jardiance, spirnolactone. (3) Acute dehydration: Impression: Resolved. Received IV fluid rehydration, now eating and drinking well. (4) Leukocytosis: Impression: Improving, continue to trend. Qualifiers: Leukocytosis type: unspecified Qualified Code(s): D72.829 - Elevated white blood cell count, unspecified (5) Congestive heart failure: Impression: Not in acute exacerbation. Was dehydrated on admission. Continued Lasix. Continue lisinopril, Jardiance, spirnolactone. Qualifiers: Heart failure chronicity: unspecified Heart failure type: unspecified Qualified Code(s): I50.9 - Heart failure, unspecified (6) Type 2 diabetes mellitus: Impression: Continue low-dose sliding scale. 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
[2024-06-12 04:45] LABS: HCT - HEMATOCRIT 31.8 % (37.0-47.0); HGB - HEMOGLOBIN 9.3 g/dL (12.0-16.0); MEAN CORPUSCULAR HEMOGLOBIN 25.1 pg (27.0-31.0); MEAN CORPUSCULAR HGB CONC 29.2 g/dL (32.0-36.0); MEAN CORPUSCULAR VOLUME 85.9 fL (81.0-99.0); MEAN PLATELET VOLUME 11.2 fL (7.9-10.8); RED BLOOD COUNT 3.7 10^6/uL (4.20-5.40); RED CELL DISTRIBUTION WIDTH 18.1 % (12.0-15.0)
[2024-06-12 05:35] LABS: CALCIUM 7.1 mg/dL (8.5-10.3); CREATININE 0.6 mg/dL (0.6-1.3); POTASSIUM 3.2 mmol/L (3.5-4.5)
[2024-06-12] MEDS: SERTRALINE 25 MG TABLET PO SCH (08:42)
[2024-06-12] MEDS: lisinopriL 5 MG TABLET PO SCH (08:43)
[2024-06-12] MEDS: SPIRONOLACTONE 25 MG TABLET PO SCH (08:43)
[2024-06-12] MEDS: **Empagliflozin [Jardiance] 10 mg tablet PO SCH (10:16)
[2024-06-12] MEDS: POTASSIUM CHLORIDE 20 MEQ TABLET PO SCH (11:48)
--- NOTE | 2024-06-12 19:02 | PROVIDER PROGRESS NOTE ---
Progress Note Progress Note Progress Note: June 12, 2024 1700 Patient seen this morning and this afternoon. She is cheerful. Really, really, really wants to go back home which is [facility]. We have been waiting insurance authorization. Apparently the glitch is they need to review her for rehab. Once she is denied from rehab then she can go to [facility] which is her group home home. They have requested a peer to peer for me today. Exam: Blood pressure 135/49, pulse 63, respirations 16, temp 36.6, O2 sat 100% on 2 L. Alert and oriented to person, place, time and situation. I took care of this very edyta lady over a year ago and she remembers me and names me correctly. 5 feet 5 inches tall, 88.5 kg. She is sleeping when I walk in the room and wakens to my voice. Immediately alert and conversant. No distress. Neck is supple. Lungs have diminished breath sounds at the bases but essentially clear without any increased respiratory effort Regular rate and rhythm Abdomen has hypoactive bowel sounds, and is morbidly obese, but soft, nontender. She only ate 10% of dinner. She is urinating. Large legs because of weight but only trace edema. Neurologically able to move all extremities with no deficits. I reviewed her labs and potassium is low at 3.2. She is on oral potassium replacement with solution. She absolutely hates it and refused to take a potassium supplement this morning. Sodium was 139, chloride 108, carbon dioxide 26, BUN 5, creatinine 0.6. Glucose is 111 before breakfast, 128 before lunch, 92 before dinner. White cell count is 12. She was admitted at 26.4. Hemoglobin is drifted down from 13.1-9.3. Platelets 340 and she is to 27. June 07 blood cultures are negative at 5 days Assessment/Plan Problem List (1) Acute diverticulitis: Impression: Patient with significant leukocytosis on admission. CT shows sigmoid diverticulitis. Patient is much improved today. Abdominal pain has resolved. No nausea, no vomiting. Tolerating GI soft diet well. Rocephin and Flagyl switched to Augmentin. Will complete 10 day course of antibiotics (day 6/10 today). Patient is medically clear for discharge. (2) YARED (acute kidney injury): Impression: Resolved. With IV fluid rehydration, patient's YARED is back to baseline. Restarted lisinopril, Jardiance, spirnolactone. (3) Acute dehydration: Impression: Resolved. Received IV fluid rehydration, now eating and drinking well. (4) Leukocytosis: Impression: Started at 21,000. Has gently drifted down to 12.8 on June 10. Between June 10 and now she is still coming down but is only 12.0. Continue to trend Qualifiers: Leukocytosis type: unspecified Qualified Code(s): D72.829 - Elevated white blood cell count, unspecified (5) Congestive heart failure: Impression: Not in acute exacerbation. Was dehydrated on admission. Continued Lasix. Continue lisinopril, Jardiance, spirnolactone. Qualifiers: Heart failure chronicity: unspecified Heart failure type: unspecified Qualified Code(s): I50.9 - Heart failure, unspecified (6) Type 2 diabetes mellitus: Impression: .Glucose well-controlled. Qualifiers: Diabetes mellitus complication status: with other specified complication Diabetes mellitus terminal carman insulin use: without group home use Qualified Code(s): E11.69 - Type 2 diabetes mellitus with other specified complicati
[2024-06-13 06:20] VITALS: TEMP 97.5
[2024-06-13 08:24] VITALS: BP 130/47; O2SAT 97
[2024-06-13] MEDS: NYSTATIN POWDER 15 GM TOP SCH (13:03)
--- NOTE | 2024-06-17 21:43 | Discharge Summary ---
Discharge Summary Admit Date: 06/02/24 Discharge Date: 06/13/24 Discharging Provider: Rakel Garcia MD Code Status: Do Not Attempt Resuscitation Discharge Facility Name: [facility] DIAGNOSES Discharge Diagnoses with Status of Each Condition: 1. Acute diverticulitis 2. Acute kidney injury resolved 3. Acute dehydration resolved 4. Leukocytosis improving 5. Chronic systolic heart failure, stable 6. Type 2 diabetes mellitus, without long-term use of insulin, without complication 7. COPD without exacerbation HPI History of Present Illness: 74-year-old female with history of congestive heart failure, type 2 diabetes mellitus, diverticulitis, COPD, and hypertension presents with one week of abdominal cramping, diarrhea, and increased chest congestion. She was last seen 05/21/24 and was transferred to [facility] for suspected NSTEMI, however she reports she did not have any heart issue at that time and was instead treated for lung infection. She does feel her lung infection has cleared, however notes her lungs are "gurgling" and she is coughing more than normal. She notes 1 week of intermittent cramping abdominal pain, mostly in the suprapubic and left lower abdominal areas. She was given an anti-nausea medication and Imodium for diarrhea with minimal improvement. She thinks her last bowel movement was 1-2 days ago, she does not think it was bloody, dark, or tarry. She last vomited yesterday and describes the emesis as liquidy without blood or coffee-ground appearance. She has not been eating or drinking for several days due to very decreased appetite, nausea, and vomiting. Today she states her abdominal discomfort has slowly improved, but she is feeling very weak and fatigued due to sickness and not eating or drinking. She was brought in today from [facility] due to elevated white count to 26.7. She denies chest pain, increased work of breathing, hemoptysis, headache, back pain, edema, skin rash, hematemesis, coffee-ground emesis, dark or bloody stool. CONSULTS | PROCEDURES Procedures: Chest x-ray has no acute cardiopulmonary process Abdomen/pelvis CT has mild recurrent sigmoid diverticulitis. Question of a benign cystic neoplasm of the fundus of the bladder. Hiatal hernia. A remote cholecystectomy. HOSPITAL COURSE Hospital Course: (1) Acute diverticulitis: Impression: Patient with significant leukocytosis on admission. CT shows sigmoid diverticulitis. Patient is much improved today. Abdominal pain has resolved. No nausea, no vomiting. Tolerating GI soft diet well. Rocephin and Flagyl switched to Augmentin. Will complete 10 day course of antibiotics (day 7 today). Patient is medically clear for discharge since 06/11/24. Waiting for authorization. (2) YARED (acute kidney injury): Impression: Resolved. With IV fluid rehydration, patient's YARED is back to baseline. Restarted lisinopril, Jardiance, spirnolactone. (3) Acute dehydration: Impression: Resolved. Received IV fluid rehydration, now eating and drinking well. (4) Leukocytosis: Impression: Started at 21,000. Has gently drifted down to 12.8 on June 10. Between June 10 and now she is still coming down but is only 12.0. Qualifiers: Leukocytosis type: unspecified Qualified Code(s): D72.829 - Elevated white blood cell count, unspecified (5) Congestive heart failure: Impression: Not in acute exacerbation. Was dehydrated on admission. Continued Lasix. Continue lisinopril, Jardiance, spirnolactone. Qualifiers: Heart failure chronicity: unspecified Heart failure type: unspecified Qualified Code(s): I50.9 - Heart failure, unspecified (6) Type 2 diabetes mellitus: Impression: .Glucose well-controlled. Qualifiers: Diabetes mellitus complication status: with other specified complication Diabetes mellitus equipment operator intermodal yard insulin use: without equipment operator intermodal yard use Qualified Code(s): E11.69 - Type 2 diabetes mellitus with other specified complicati Exam: Blood pressure 130/47. Pulse 67. Respirations 18. Temperature 36.4. 97% saturated on 2 L. This patient has chronic hypoxia and is on maintenance O2 at home. Alert and oriented to person, place, time and situation. I took care of this very edyta lady over a year ago and she remembers me and names me correctly. 5 feet 5 inches tall, 88.5 kg. She is sleeping when I walk in the room and wakens to my voice. Immediately alert and conversant. No distress. Neck is supple. Lungs have diminished breath sounds at the bases but essentially clear without any increased respiratory effort Regular rate and rhythm Abdomen has hypoactive bowel sounds, and is morbidly obese, but soft, nontender. She only ate 10% of dinner. She is urinating. Large legs because of weight but only trace edema. Neurologically able to move all extremities with no deficits. Is discharged in stable condition This document was made in part using voice recognition software. While efforts are made to proofread this document, sound alike and grammatical errors may occur. ALLERGIES Allergies Allergy/AdvReac Type Severity Reaction Status Date / Time Sulfa (Sulfonamide Allergy Hives Verified 06/07/24 10:23 Antibiotics) MEDICATIONS Ambulatory Orders Medication Instructions Recorded Confirmed albuterol sulfate 90 mcg/actuation 2 puff PO QID PRN Shortness Of 06/28/22 06/07/24 aerosol inhaler (Ventolin HFA) Air/Wheezing aspirin 81 mg tablet,delayed 81 mg PO DAILY CAD hx ##0 10/18/22 06/07/24 release atorvastatin 40 mg tablet 40 mg PO QPM hyperlipidemia ##0 10/18/22 06/07/24 clopidogrel 75 mg tablet 75 mg PO DAILY for CAD 10/18/22 06/07/24 cyanocobalamin (vitamin B-12) 500 500 mcg PO DAILY low B12 10/18/22 06/07/24 mcg tablet spironolactone 25 mg tablet 25 mg PO DAILY chornic systolic 10/18/22 06/07/24 (Aldactone) chf ##0 bisacodyl 10 mg rectal suppository 10 mg RC DAILY PRN Constipation 07/31/23 06/07/24 cranberry extract 500 mg tablet 2,000 mg PO DAILY 07/31/23 06/07/24 ipratropium 0.5 mg-albuterol 3 mg 3 ml NEB Q6H PRN Wheezing 07/31/23 06/07/24 (2.5 mg base)/3 mL nebulization soln metoprolol succinate 25 mg 25 mg PO DAILY 07/31/23 06/07/24 tablet,extended release 24 hr sennosides 8.6 mg tablet (Senna 17.2 mg PO DAILY PRN Constipation 07/31/23 06/07/24 Lax) furosemide 40 mg tablet 40 mg PO DAILY 08/01/23 06/07/24 glipizide 5 mg tablet 5 mg PO QDBREAKFAST 08/01/23 06/07/24 ondansetron 4 mg disintegrating 4 mg PO Q6H PRN Nausea / Vomiting 08/01/23 06/07/24 tablet polyethylene glycol 3350 17 gram 17 g PO DAILY PRN Constipation 08/01/23 06/07/24 oral powder packet lisinopril 2.5 mg tablet 2.5 mg PO DAILY 04/05/24 06/07/24 loperamide 2 mg capsule 2 mg PO Q6H PRN Diarrhea 04/05/24 06/07/24 mineral oil (Fleet Mineral Oil 118 ml MN DAILY PRN constipation 04/05/24 06/07/24 enema) sertraline 25 mg tablet 75 mg PO DAILY 04/05/24 06/07/24 zinc oxide 20 % topical ointment 1 applic topical PRN PRN skin 04/05/24 06/07/24 (Endit (zinc oxide)) irritation empagliflozin 10 mg tablet 10 mg PO DAILY 06/07/24 06/07/24 (Jardiance) enoxaparin 40 mg/0.4 mL 40 mg subcut DAILY 06/07/24 06/07/24 subcutaneous syringe insulin lispro 100 unit/mL 2 - 10 unit subcut ACHS 06/07/24 06/07/24 subcutaneous pen pantoprazole 40 mg tablet,delayed 40 mg PO DAILY 06/07/24 06/07/24 release potassium chloride 20 mEq 20 meq PO BID 06/07/24 06/07/24 tablet,extended release(part/cryst) amoxicillin 875 mg-potassium 1 tab PO Q8HR diverticulitis #11 06/13/24 clavulanate 125 mg tablet tabs nystatin 100,000 unit/gram topical 1 applic topical BID #15 grams 06/13/24 powder (Nyamyc) LABS 06/12/24 04:21 06/12/24 04:21 Discharge Plan Discharge Patient Disposition: 01 Home, Self Care Condition: Stable Medically Cleared Date:: 06/09/24 Prescriptions: New amoxicillin-pot clavulanate 875-125 mg Tablet 1 tab PO Q8HR Qty: 11 0RF Rx Instructions: to complete on 06/16/2024 after 3rd dose that day nystatin [Nyamyc] 100,000 unit/gram Powder 1 applic topical BID Qty: 15 0RF Continued albuterol sulfate [Ventolin HFA] 200 PUFFS/18 GM HFA aerosol inhaler 2 puff PO QID PRN (Reason: Shortness Of Air/Wheezing) clopidogrel 75 MG tablet 75 mg PO DAILY 0RF cyanocobalamin (vitamin B-12) 500 MCG tablet 500 mcg PO DAILY 0RF atorvastatin 40 MG tablet 40 mg PO QPM Qty: 0 0RF Patient Comments: TAKE ONE TABLET BY MOUTH NIGHTLY aspirin 81 MG tablet,delayed release (DR/EC) 81 mg PO DAILY Qty: 0 0RF Patient Comments: TAKE 1 TABLET BY MOUTH ONCE DAILY spironolactone [Aldactone] 25 MG tablet 25 mg PO DAILY Qty: 0 0RF sennosides [Senna Lax] 8.6 MG tablet 17.2 mg PO DAILY PRN (Reason: Constipation) Rx Instructions: FOR DAY 4 OF NO BM ipratropium-albuterol 3 ML solution for nebulization 3 ml NEB Q6H PRN (Reason: Wheezing) bisacodyl 10 MG suppository 10 mg RC DAILY PRN (Reason: Constipation) Rx Instructions: DAY 5 OF NO BM metoprolol succinate 25 MG tablet extended release 24 hr 25 mg PO DAILY cranberry extract 500 MG tablet 2,000 mg PO DAILY furosemide 40 MG tablet 40 mg PO DAILY ondansetron 4 MG tablet,disintegrating 4 mg PO Q6H PRN (Reason: Nausea / Vomiting) glipizide 5 MG tablet 5 mg PO QDBREAKFAST polyethylene glycol 3350 17 GM powder in packet 17 g PO DAILY PRN (Reason: Constipation) Rx Instructions: FOR DAY 3 OF NO BM sertraline 25 mg tablet 75 mg PO DAILY lisinopril 2.5 mg tablet 2.5 mg PO DAILY zinc oxide [Endit (zinc oxide)] 20 % ointment 1 applic topical PRN PRN (Reason: skin irritation) mineral oil [Fleet Mineral Oil] Enema 118 ml MN DAILY PRN (Reason: constipation) Rx Instructions: discard any unused portion. FOR DAY 6 OF NO BM loperamide 2 MG capsule 2 mg PO Q6H PRN (Reason: Diarrhea) Jardiance 10 mg tablet 10 mg PO DAILY enoxaparin 40 mg/0.4 mL syringe 40 mg subcut DAILY pantoprazole 40 mg tablet,delayed release (DR/EC) 40 mg PO DAILY potassium chloride 20 mEq tablet,ER particles/crystals 20 meq PO BID insulin lispro 100 unit/mL insulin pen 2 - 10 unit SUBCUT ACHS Rx Instructions: 0-149 =0 UNITS, 15-200 =2 UNITS, 201-250 = 4 UNITS, 251-300 = 6 UNITS, 301- 350 = 8 UNITS, OVER 350 = 10 UNITS AND CALL PROVIDER Activity Restrictions: Activity as Tolerated Diet: Diabetic Health Concerns: You currently live in [facility] for long-term care. You are minimally active. You are described as someone who can possibly walk 10 steps at most, but spent most of your time in bed or chair. 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 You presented to our emergency room because you had abdominal pain. We found you to have diverticulitis. Treatment consisted of intravenous antibiotics, and Florastor to prevent diarrhea from antibiotics. You have done well in that your pain was reduced, and your white cell came down to almost normal. We advanced your diet from no food at all to clear liquids to then a diabetic diet and you have done well. No increased abdominal pain. You will ready for discharge several days ago but the skilled nursing requested rehab for you. We did not request rehab. We had to then get authorization from the insurance company. The insurance company denied the request for rehab and you can now return home to long-term care. When you came in your white cell count, which is a sign of infection, it was 22,000. You are now 12,000. You have no fever. And you are back down to the usual oxygen need of 2 L nasal cannula. You are tolerating your diet well. You are eating anywhere between 25 to 75% of your food. You have minimal, minimal abdominal pain. You are now ready to go back to [facility]. We would like you to take antibiotics until June 16. The name of the antibiotic is Augmentin. You will take it 3 times a day. Take it with food. Right before you were discharged, we found you to have Thi of the skin underneath your breast. We started you on a nystatin powder. We have not changed any of your other medication. Your primary care provider is located at the nursing facility. He or she will see you in follow-up in the next week. Thank you very much for allowing us to take care of you. It was very nice to see you again. You were such a kind lady. Print Language: Yi Patient Instructions: Diverticulosis Diverticulitis Stand Alone Forms: SNF Discharge Follow-up Care: Brianne Aiken MD [Primary Care Provider] -
== END 2024-06-13 16:43 | disposition home or self-care (01) | DRG 392 ==
LOC: ED 10:05 → MS3 14:37
PROVIDERS: ADMIT Internal Medicine; ATTEND Internal Medicine
DX: I95.9 Hypotension, unspecified; E86.0 Dehydration; E86.9 Volume depletion, unspecified; N17.9 Acute kidney failure, unspecified; Z79.899 Other long term (current) drug therapy; I11.0 Hypertensive heart disease with heart failure; Z68.32 Body mass index [BMI] 32.0-32.9, adult; J44.9 Chronic obstructive pulmonary disease, unspecified; Z79.4 Long term (current) use of insulin; I50.22 Chronic systolic (congestive) heart failure; Z87.891 Personal history of nicotine dependence; Z79.84 Long term (current) use of oral hypoglycemic drugs; K57.32 Diverticulitis of large intestine without perforation or abscess without bleeding; E11.9 Type 2 diabetes mellitus without complications; E66.9 Obesity, unspecified